=== PATIENT | female | born 1930 | race Caucasian/White ===

== ENCOUNTER → 2016-07-22 | Outpatient (CLI) | payer OTHER ==
[~2016-07-22] MED LIST: AMLO10CA PO; ASPI-435 PO; CALCTAB5 PO; FRS/40 PO; HYDR-3419 PO; LEVO50TA PO; LORA-741 PO; MAGNTAB4 PO; MECL1TAB42 PO; METO100T14 PO; MULT-845 PO; OXGN; POTA-327 PO; SPIR25TA PO; WARF1TAB PO
[2016-07-22 17:52] LABS: BASO % 0.1 %; BASO ABS # 0.01 K/uL (0-0.2); COMPLETE YES; HEMATOCRIT 39.2 % (37-47); IG% 0.3 %; LYMPH % 21.1 %; MEAN CELL VOLUME 88.7 fL (80-100); MEAN CORPUSCULAR HEMOGLOBIN 32.4 pg (25-34); MEAN CORPUSCULAR HGB CONC 36.5 g/dl (32-36); MEAN PLATELET VOLUME 10.7 fL (7.4-10.4); MONO % 9.2 %; NEUT % 67.3 %; PLATELET COUNT 181 K/uL (130-400); RED BLOOD COUNT 4.42 M/uL (4.2-5.4); WHITE BLOOD COUNT 7.59 K/uL (4.8-10.8)
[2016-07-22 18:01] LABS: INR 3.1 (0.9-1.1); PROTHROMBIN TIME (PATIENT) 34.2 SECONDS (9.0-12.0)
[2016-07-22 19:49] LABS: ALT/SGPT 37 U/L (12-78); BLOOD UREA NITROGEN 10 mg/dl (7-18); BUN/CREATININE RATIO 14.1 (10-20); CALCIUM 9.5 mg/dl (8.5-10.1); CARBON DIOXIDE 29 mmol/L (21-32); CHLORIDE 89 mmol/L (98-107); CREATININE 0.73 mg/dl (0.60-1.20); GLUCOSE 111 mg/dl (70-99); POTASSIUM 3.6 mmol/L (3.5-5.1); SODIUM 127 mmol/L (136-145)
[2016-07-22 19:51] LABS: ALB/GLOB RATIO 0.8 (0.9-2); ALKALINE PHOSPHATASE 127 U/L (45-117); AST/SGOT 39 U/L (15-37)
== END | disposition home or self-care (01) ==
LOC: C.LABSPEC 12:43
PROVIDERS: ATTEND Internal Medicine
DX: I48.91 Unspecified atrial fibrillation (principal); K52.9 Noninfective gastroenteritis and colitis, unspecified

== ENCOUNTER → 2016-08-05 | Outpatient (CLI) | payer OTHER ==
[2016-08-05 18:27] LABS: INR 3.3 (0.9-1.1); PROTHROMBIN TIME (PATIENT) 37.5 SECONDS (9.0-12.0)
== END | disposition home or self-care (01) ==
LOC: C.LABSPEC 15:15
PROVIDERS: ATTEND Internal Medicine
DX: Z51.81 Encounter for therapeutic drug level monitoring (principal); Z79.01 Long term (current) use of anticoagulants; I48.91 Unspecified atrial fibrillation

== ENCOUNTER → 2016-09-03 | Outpatient (CLI) | payer OTHER ==
[2016-09-03 15:44] LABS: INR 1.7 (0.9-1.1); PROTHROMBIN TIME (PATIENT) 18.1 SECONDS (9.0-12.0)
== END | disposition home or self-care (01) ==
LOC: C.LABSPEC 15:17
PROVIDERS: ATTEND Internal Medicine
DX: I48.91 Unspecified atrial fibrillation (principal); Z79.01 Long term (current) use of anticoagulants

== ENCOUNTER → 2016-09-09 | Outpatient (CLI) | payer OTHER ==
--- NOTE | 2016-09-09 13:26 | MAMMOGRAPHY REPORT ---
BILATERAL DIGITAL SCREENING MAMMOGRAM WITH CAD: 09/09/2016 CLINICAL HISTORY: Routine screening. Patient has no complaints. TECHNIQUE: Current study was also evaluated with a Computer Aided Detection (CAD) system. Bilatera l CC and MLO views were obtained. COMPARISON: Comparison is made to exams dated: 07/30/2015 mammogram, 05/30/2014 mammogram, 11/18/2014 mammogram, 06/17/2014 mammogram, 04/19/2013 mammogram, and 03/21/2012 mammogram - [facility]. BREAST COMPOSITION: The tissue of both breasts is heterogeneously dense, which may obscure small ma sses. FINDINGS: No suspicious masses, calcifications, or areas of architectural distortion are noted in e ither breast. There has been no significant interval change compared to prior exams. Scattered bilat eral benign-appearing calcifications are not significantly changed. IMPRESSION: ACR BI-RADS CATEGORY 2: BENIGN There is no mammographic evidence of malignancy. A 1 year screening mammogram is recommended. The p atient will receive written notification of the results. Approximately 10% of breast cancers are not detected with mammography. A negative mammographic repor t should not delay biopsy if a clinically suggestive mass is present. Maritza Tenorio M.D. /:09/09/2016 12:43:51 Segmental Paving Supervisor: Twila HOYOSR M, [facility] letter sent: Normal 1/2 BI-RADS Code: ACR BI-RADS Category 2: Benign
== END | disposition home or self-care (01) ==
LOC: C.MAMM 11:40
PROVIDERS: ATTEND Internal Medicine
DX: Z12.31 Encounter for screening mammogram for malignant neoplasm of breast (principal)

== ENCOUNTER → 2016-09-20 | Outpatient (CLI) | payer OTHER ==
[2016-09-20 16:12] LABS: PROTHROMBIN TIME (PATIENT) 22.3 SECONDS (9.0-12.0)
== END ==
LOC: C.LABSPEC 15:16
PROVIDERS: ATTEND Internal Medicine
DX: I48.91 Unspecified atrial fibrillation (principal); Z79.01 Long term (current) use of anticoagulants

== ENCOUNTER → 2016-10-18 | Outpatient (CLI) | payer OTHER ==
[2016-10-18 15:03] LABS: INR 2.8 (0.9-1.1); PROTHROMBIN TIME (PATIENT) 31.2 SECONDS (9.0-12.0)
== END | disposition home or self-care (01) ==
LOC: C.LABSPEC 14:38
PROVIDERS: ATTEND Internal Medicine
DX: I48.91 Unspecified atrial fibrillation (principal); Z79.01 Long term (current) use of anticoagulants

== ENCOUNTER → 2016-11-02 | Outpatient (CLI) | payer OTHER | END | disposition home or self-care (01) | LOC: C.LABSPEC 13:00 | PROVIDERS: ATTEND Internal Medicine | DX: N39.0 Urinary tract infection, site not specified (principal) ==

== ENCOUNTER → 2016-11-17 | Outpatient (CLI) | payer OTHER ==
[2016-11-17 18:23] LABS: INR 2.9 (0.9-1.1); PROTHROMBIN TIME (PATIENT) 32.9 SECONDS (9.0-12.0)
== END | disposition home or self-care (01) ==
LOC: C.PATHSPEC 17:41 → C.LABSPEC 17:41
PROVIDERS: ATTEND Internal Medicine
DX: I48.91 Unspecified atrial fibrillation (principal); Z79.01 Long term (current) use of anticoagulants

== ENCOUNTER → 2016-12-03 | Outpatient (CLI) | payer OTHER | END | disposition home or self-care (01) | LOC: C.LABSPEC 08:43 | PROVIDERS: ATTEND Internal Medicine | DX: N39.0 Urinary tract infection, site not specified (principal) ==

== ENCOUNTER → 2016-12-20 | Outpatient (CLI) | payer OTHER ==
[2016-12-20 16:20] LABS: BASO % 0.3 %; BASO ABS # 0.02 K/uL (0-0.2); COMPLETE YES; EOS % 3.8 %; HEMATOCRIT 36.6 % (37-47); IG% 0.2 %; LYMPH % 26.4 %; LYMPH ABS # 1.59 K/uL (1.2-3.4); MEAN CORPUSCULAR HEMOGLOBIN 31.6 pg (25-34); MEAN CORPUSCULAR HGB CONC 34.7 g/dl (32-36); MEAN PLATELET VOLUME 10.5 fL (7.4-10.4); MONO % 12.8 %; NEUT % 56.5 %; PLATELET COUNT 141 K/uL (130-400); RED BLOOD COUNT 4.02 M/uL (4.2-5.4); WHITE BLOOD COUNT 6.02 K/uL (4.8-10.8)
[2016-12-20 16:28] LABS: BLOOD UREA NITROGEN 14 mg/dl (7-18); BUN/CREATININE RATIO 20.5 (10-20); CALCIUM 8.8 mg/dl (8.5-10.1); CARBON DIOXIDE 30 mmol/L (21-32); CHLORIDE 92 mmol/L (98-107); CREATININE 0.68 mg/dl (0.60-1.20); GLUCOSE 80 mg/dl (70-99); POTASSIUM 4.1 mmol/L (3.5-5.1); SODIUM 130 mmol/L (136-145)
[2016-12-20 16:39] LABS: ALB/GLOB RATIO 0.9 (0.9-2); ALKALINE PHOSPHATASE 105 U/L (45-117); ALT/SGPT 32 U/L (12-78); AST/SGOT 36 U/L (15-37)
[2016-12-20 16:41] LABS: PROTHROMBIN TIME (PATIENT) 68.4 SECONDS (9.0-12.0)
[2016-12-20 16:43] LABS: INR 5.9 (0.9-1.1)
== END | disposition home or self-care (01) ==
LOC: C.LABSPEC 15:33
PROVIDERS: ATTEND Internal Medicine
DX: Z79.01 Long term (current) use of anticoagulants (principal); I48.91 Unspecified atrial fibrillation; Z95.2 Presence of prosthetic heart valve; I25.10 Atherosclerotic heart disease of native coronary artery without angina pectoris; I10 Essential (primary) hypertension; E03.9 Hypothyroidism, unspecified

== ENCOUNTER → 2017-01-04 | Outpatient (CLI) | payer OTHER ==
[2017-01-04 16:25] LABS: INR 2.7 (0.9-1.1)
== END | disposition home or self-care (01) ==
LOC: C.LABSPEC 15:11
PROVIDERS: ATTEND Internal Medicine
DX: I48.91 Unspecified atrial fibrillation (principal); Z79.01 Long term (current) use of anticoagulants

== ENCOUNTER → 2017-02-07 | Outpatient (CLI) | payer OTHER ==
[2017-02-07 15:40] LABS: INR 1.9 (0.9-1.1); PROTHROMBIN TIME (PATIENT) 20.4 SECONDS (9.0-12.0)
== END | disposition home or self-care (01) ==
LOC: C.LABSPEC 15:01
PROVIDERS: ATTEND Internal Medicine
DX: Z51.81 Encounter for therapeutic drug level monitoring (principal); Z79.01 Long term (current) use of anticoagulants; I48.91 Unspecified atrial fibrillation

== ENCOUNTER → 2017-02-28 | Outpatient (CLI) | payer OTHER ==
[2017-02-28 18:22] LABS: URINE APPEARANCE CLEAR (CLEAR); URINE BILIRUBIN NEG (NEG); URINE COLOR YELLOW; URINE NITRITE NEG (NEG); URINE PH 8.5 (4.5-7.5); UROBILINOGEN NEG (NEG)
[2017-02-28 18:26] LABS: MANUAL MICROSCOPIC REQUIRED? NO; REVIEW REQ? NO
== END | disposition home or self-care (01) ==
LOC: C.LABSPEC 17:30
PROVIDERS: ATTEND Internal Medicine
DX: R35.0 Frequency of micturition (principal)

== ENCOUNTER → 2017-03-10 | Outpatient (CLI) | payer OTHER ==
[2017-03-10 15:27] LABS: INR 1.9 (0.9-1.1)
== END | disposition home or self-care (01) ==
LOC: C.LABSPEC 14:33
PROVIDERS: ATTEND Internal Medicine
DX: I48.91 Unspecified atrial fibrillation (principal); Z79.01 Long term (current) use of anticoagulants

== ENCOUNTER → 2017-03-23 | Outpatient (CLI) | payer OTHER | END | disposition home or self-care (01) | LOC: C.LABSPEC 17:28 | PROVIDERS: ATTEND Urology | DX: N39.0 Urinary tract infection, site not specified (principal); R30.0 Dysuria; R31.0 Gross hematuria ==

== ENCOUNTER → 2017-03-31 | Outpatient (CLI) | payer OTHER ==
[2017-03-31 15:58] LABS: INR 1.5 (0.9-1.1); PROTHROMBIN TIME (PATIENT) 16.2 SECONDS (9.0-12.0)
[2017-03-31 16:05] LABS: ALT/SGPT 32 U/L (12-78); BLOOD UREA NITROGEN 13 mg/dl (7-18); BUN/CREATININE RATIO 19.5 (10-20); CALCIUM 9.3 mg/dl (8.5-10.1); CARBON DIOXIDE 31 mmol/L (21-32); CHLORIDE 91 mmol/L (98-107); CREATININE 0.65 mg/dl (0.60-1.20); GLUCOSE 91 mg/dl (70-99); POTASSIUM 3.9 mmol/L (3.5-5.1); SODIUM 128 mmol/L (136-145)
[2017-03-31 16:06] LABS: ALB/GLOB RATIO 0.9 (0.9-2); ALKALINE PHOSPHATASE 109 U/L (45-117); AST/SGOT 34 U/L (15-37)
== END | disposition home or self-care (01) ==
LOC: C.LABSPEC 14:49
PROVIDERS: ATTEND Internal Medicine
DX: Z79.01 Long term (current) use of anticoagulants (principal); I48.91 Unspecified atrial fibrillation; N39.0 Urinary tract infection, site not specified; R31.0 Gross hematuria; R30.0 Dysuria

== ENCOUNTER → 2017-04-08 | Outpatient (CLI) | payer OTHER ==
[~2017-04-08] MED LIST changes: +OPTIRAY 320 IV PRN
--- NOTE | 2017-04-08 12:57 | DIAGNOSTIC IMAGING REPORT ---
ABD/PELVIS COMBO CLINICAL HISTORY: 86 years-old Female presenting with N39.0 UTI (urinary tract infection)R30.0 [id number] Gross norma. TECHNIQUE: Multidetector CT of the abdomen and pelvis was performed before and after the administration of intravenous contrast. IV contrast: 120 mils of Optiray 320. A dose lowering technique was used consistent with the principles of ALARA (as low as reasonably achievable). COMPARISON: None. CT DOSE (mGy.cm): The estimated cumulative dose is 1454.12 mGycm. FINDINGS: Doctor Of Podiatric Medicine topogram: Median sternotomy wires with tricuspid and aortic prosthetic valves. Lung bases: Dependent reticulation and bandlike opacities, new since 2012, possibly atelectasis or scarring. Solid 8 mm pulmonary nodule at the paramediastinal left lower lobe (series 3 image 12). Interlobular septal thickening. Multichamber enlargement of the heart. Prosthetic tricuspid and aortic valves. Partially visualized lead to the right ventricle. Mitral annular calcification. No pericardial or pleural effusion. Liver: Mildly nodular contour of the liver. No focal suspicious lesion allowing for the single phase of contrast. Patent portal veins. Hepatic veins not yet opacified. Biliary: Mild diffuse intrahepatic biliary ductal dilatation. Mild prominence of the extrahepatic bile duct. Gallbladder contains gallstones. Mild pericholecystic fat infiltration. No gallbladder distention. Pancreas: Mild parenchymal atrophy. Spleen: Normal. Adrenal glands: Normal. Kidneys and ureters: Small hypodensity in the right kidney too small to characterize but likely cyst. No hydronephrosis. Normal excretion bilaterally. Ureters normal. Bladder: Normal. No gross evidence of a urethral diverticulum Pelvic organs: Uterus and ovaries normal. Bowel: Diverticulosis of the sigmoid colon. Few scattered colonic diverticula noted elsewhere. Normal appendix. No bowel obstruction. Small hiatal hernia. Radiodensity in the gastric lumen likely medication. Peritoneal cavity: No free fluid or intraperitoneal gas. Vasculature: Atherosclerosis of the normal caliber abdominal aorta. IVC patent. Lymph nodes: No enlarged lymph nodes in the abdomen or pelvis. Abdominal wall: Diastasis of the rectus abdominis. Musculoskeletal: Degenerative changes of the spine. Endplate depression deformities at multiple levels, most severe at L3 and L4. Benign meningioma suspected at L1. Severe osteopenia. Degenerative changes of the pubic symphysis. IMPRESSION: 1. No nephrolithiasis. No hydronephrosis. Normal urinary collecting system. 2. Severe osteopenia with endplate depression deformities at multiple levels. 3. Solid 8 mm pulmonary nodule at the left lower lobe. Follow-up per [employer] Society 2017 recommendations below. 4. Mild pericholecystic fat infiltration with cholelithiasis. The absence of gallbladder distention suggests against the diagnosis of cholecystitis. This is somewhat equivocal. If there is clinical concern, nuclear medicine hepatobiliary scan could be obtained. Electronically signed by: Vikash Moreno M.D. 04/08/2017 12:55 PM Dictated Date/Time: 04/08/2017 12:45 PM
== END | disposition home or self-care (01) ==
LOC: C.CTS 11:59
PROVIDERS: ATTEND Urology
DX: N39.0 Urinary tract infection, site not specified (principal); R31.0 Gross hematuria; R30.0 Dysuria; M85.89 Other specified disorders of bone density and structure, multiple sites; R91.1 Solitary pulmonary nodule; K80.20 Calculus of gallbladder without cholecystitis without obstruction

== ENCOUNTER → 2017-04-12 | Outpatient (CLI) | payer OTHER ==
[~2017-04-12] MED LIST changes: -OPTIRAY 320 IV PRN
[2017-04-12 15:36] LABS: INR 2.5 (0.9-1.1); PROTHROMBIN TIME (PATIENT) 27.5 SECONDS (9.0-12.0)
== END | disposition home or self-care (01) ==
LOC: C.LABSPEC 14:43
PROVIDERS: ATTEND Internal Medicine
DX: I48.91 Unspecified atrial fibrillation (principal); Z79.01 Long term (current) use of anticoagulants

== ENCOUNTER → 2017-06-15 | Outpatient (CLI) | payer OTHER | END | disposition home or self-care (01) | LOC: C.LABSPEC 17:02 | PROVIDERS: ATTEND Urology | DX: R31.0 Gross hematuria (principal) ==

== ENCOUNTER → 2017-06-28 | Outpatient (CLI) | payer OTHER | END | disposition home or self-care (01) | LOC: C.PATHSPEC 16:53 | PROVIDERS: ATTEND Urology | DX: R31.0 Gross hematuria (principal) ==

== ENCOUNTER → 2017-07-08 | Outpatient (CLI) | payer OTHER ==
[~2017-07-08] MED LIST changes: +AMLO5TAB3 PO; +CALC600T9 PO; +CIPR-255 PO; +CYCL0.052 OP; +CZR50 PO; +DORZ1SOL6 OP; +MCRK/10 PO; +OXYC7.5T65 PO; +PHEN-775 PO; +SLWMEC PO; +WARF-283 PO
[2017-07-08 15:00] LABS: INR 2.7 (0.9-1.1)
== END | disposition home or self-care (01) ==
LOC: C.LABSPEC 14:41
PROVIDERS: ATTEND Internal Medicine
DX: I48.91 Unspecified atrial fibrillation (principal); Z79.01 Long term (current) use of anticoagulants; Z51.81 Encounter for therapeutic drug level monitoring

== ENCOUNTER → 2017-08-10 | Outpatient (CLI) | payer OTHER ==
[~2017-08-10] MED LIST changes: -AMLO5TAB3 PO; -CALC600T9 PO; -CIPR-255 PO; -CYCL0.052 OP; -CZR50 PO; -DORZ1SOL6 OP; -MCRK/10 PO; -OXYC7.5T65 PO; -PHEN-775 PO; -SLWMEC PO; -WARF-283 PO
[2017-08-10 15:13] LABS: INR 2.4 (0.9-1.1)
== END | disposition home or self-care (01) ==
LOC: C.LABSPEC 14:57
PROVIDERS: ATTEND Internal Medicine
DX: I48.91 Unspecified atrial fibrillation (principal); Z79.01 Long term (current) use of anticoagulants

== ENCOUNTER → 2017-09-12 | Outpatient (CLI) | payer OTHER ==
[2017-09-12 15:28] LABS: INR 2.4 (0.9-1.1)
== END | disposition home or self-care (01) ==
LOC: C.LABSPEC 14:53
PROVIDERS: ATTEND Internal Medicine
DX: I48.91 Unspecified atrial fibrillation (principal); Z79.01 Long term (current) use of anticoagulants

== ENCOUNTER → 2017-09-23 | Outpatient (CLI) | payer OTHER ==
--- NOTE | 2017-09-23 13:54 | MAMMOGRAPHY REPORT ---
BILATERAL DIGITAL SCREENING MAMMOGRAM TOMOSYNTHESIS WITH CAD: 09/23/2017 CLINICAL HISTORY: Routine screening. Patient has no complaints. TECHNIQUE: Breast tomosynthesis in addition to standard 2D mammography was performed. Current study was also evaluated with a Computer Aided Detection (CAD) system. COMPARISON: Comparison is made to exams dated: 09/09/2016 mammogram, 07/30/2015 mammogram, 11/18/2014 ul trasound, 11/18/2014 mammogram, 05/30/2014 mammogram, and 04/19/2013 mammogram - [facility]. BREAST COMPOSITION: The tissue of both breasts is heterogeneously dense, which may obscure small mas ses. FINDINGS: No suspicious masses, calcifications, or areas of architectural distortion are noted in ei ther breast. There has been no significant interval change compared to prior exams. Scattered bilater al benign-appearing calcifications are not significantly changed. IMPRESSION: ACR BI-RADS CATEGORY 2: BENIGN There is no mammographic evidence of malignancy. A 1 year screening mammogram is recommended. The pa tient will receive written notification of the results. Approximately 10% of breast cancers are not detected with mammography. A negative mammographic report should not delay biopsy if a clinically suggestive mass is present. Maritza Tenorio M.D. /:09/23/2017 12:16:40 Vp Genetic: Sunita MCALLISTER)(M), [facility] letter sent: Normal 1/2 BI-RADS Code: ACR BI-RADS Category 2: Benign
== END | disposition home or self-care (01) ==
LOC: C.MAMM 11:10
PROVIDERS: ATTEND Internal Medicine
DX: Z12.31 Encounter for screening mammogram for malignant neoplasm of breast (principal)

== ENCOUNTER → 2017-10-17 | Outpatient (CLI) | payer OTHER ==
[2017-10-17 17:19] LABS: INR 4.5 (0.9-1.1)
== END | disposition home or self-care (01) ==
LOC: C.LABSPEC 16:40
PROVIDERS: ATTEND Internal Medicine
DX: I48.91 Unspecified atrial fibrillation (principal); Z79.01 Long term (current) use of anticoagulants

== ENCOUNTER → 2017-11-28 | Outpatient (CLI) | payer OTHER | END | disposition home or self-care (01) | LOC: C.LABSPEC 17:12 | PROVIDERS: ATTEND Internal Medicine | DX: I48.91 Unspecified atrial fibrillation (principal); Z79.01 Long term (current) use of anticoagulants ==

== ENCOUNTER → 2017-11-30 | Outpatient (CLI) | payer OTHER | END | disposition home or self-care (01) | LOC: C.PATHSPEC 16:56 | PROVIDERS: ATTEND Urology | DX: N32.9 Bladder disorder, unspecified (principal) ==

== ENCOUNTER 2019-08-12 20:09 | Inpatient (IN) ==
[2019-08-12] MEDS ORDERED: SODIUM CHLORIDE 0.9% 1000ML 250 ML IV ONE (21:02)
[2019-08-12 21:38] LABS: Basophils # (auto) 0.01 K/uL (0-0.2); Basophils % (auto) 0.1 %; Eosinophils # (auto) 0.03 K/uL (0-0.5); Eosinophils % (auto) 0.3 %; Hematocrit (blood only) 38.2 % (37-47); Hemoglobin 13.7 g/dL (12.0-16.0); Immature Granulocytes # (auto) 0.02 K/uL (0.00-0.02); Immature Granulocytes % (auto) 0.2 %; Lymphocytes % (auto) 7.5 %; Mean Corpuscular Hemoglobin 32.5 pg (25-34); Mean Corpuscular Hgb Conc 35.9 g/dL (32-36); Mean Corpuscular Volume 90.5 fL (80-100); Mean Platelet Volume 10.2 fL (7.4-10.4); Monocytes % (auto) 5.4 %; Neutrophils # (auto) 8.05 K/uL (1.4-6.5); Neutrophils % (auto) 86.5 %; Platelet Count 132 K/uL (130-400); RDW Coefficient of Variation 13.6 % (11.5-14.5); RDW Standard Deviation 45.2 fL (36.4-46.3); Red Blood Count 4.22 M/uL (4.2-5.4); White Blood Count 9.31 K/uL (4.8-10.8)
--- NOTE | 2019-08-12 21:45 | XRay Report ---
XR chest 1V portable HISTORY: Shortness of breath. COMPARISON: Chest 09/11/2013. FINDINGS: The heart is enlarged. Poststernotomy changes. Cardiac valve prostheses are again noted. Bi basilar linear densities favor subsegmental atelectasis. Trace right pleural effusion. Progressive in terstitial vascular thickening consistent with mild pulmonary edema. IMPRESSION: Cardiomegaly, mild interstitial pulmonary edema, and a trace right pleural effusion. ACT 112: Negative or not required by law. Electronically signed by: Ilya Russ M.D. 08/12/2019 9:44 PM
[2019-08-12 22:07] LABS: Alanine Aminotransferase 28 U/L (12-78); Albumin Globulin Ratio 0.8 (0.9-2); Albumin Level 3.6 gm/dl (3.4-5.0); Alkaline Phosphatase 155 U/L (45-117); Aspartate Aminotransferase 34 U/L (15-37); BUN Creatinine Ratio 16.9 (10-20); Bilirubin,Total 1.6 mg/dl (0.2-1); Blood Urea Nitrogen 10 mg/dl (7-18); Calcium 8.9 mg/dl (8.5-10.1); Carbon Dioxide 26 mmol/L (21-32); Chloride 81 mmol/L (98-107); Est GFR (African American) 96.6; Est GFR (Non-African American) 83.4; Globulin 4.7 gm/dl (2.5-4.0); Glucose 148 mg/dl (70-99); INR 3.5 (0.9-1.1); Lipase 112 U/L (73-393); Partial Thromboplastin Ratio 1.5; Potassium 3.3 mmol/L (3.5-5.1); Prothrombin Time 33.1 Seconds (9.0-12.0); Sodium 116 mmol/L (136-145); Total Protein 8.3 gm/dl (6.4-8.2)
[2019-08-12 22:09] LABS: Influenza A virus by PCR Neg for Influ A (Neg); Influenza B virus by PCR Neg for Influ B (Neg)
--- NOTE | 2019-08-12 22:09 | Emergency Department Note ---
Entered by Araseli Quezada acting as a scribe for Donnie Galindo MD History of Present Illness General Chief complaint: Unable to Void Stated complaint: DIZZY, UNABLE TO VOID Time Seen by Provider: 08/12/19 20:50 Source: patient History of Present Illness Provider complaint: Weakness Onset (ago): day(s) 6 Location: abdomen Maximum Pain Intensity: 0 Relieved By: + none Exacerbated By: + none Associated symptoms: + nausea/vomiting (Positive nausea. Negative vomiting.) and + other (Diarrhea, bloated, abdominal pain, dizziness); no chest pain, no cough and no shortness of breath The patient is a 88 year old female who presents to the Emergency Room with complaints of weakness that began 6 days ago. The patient states that her symptoms are not relieved nor exacerbated by anything specific. The patient reports experiencing diarrhea and abdominal pain. The patient also reports experiencing bloating, dizziness, and nausea but denies any vomiting. The patient denies experiencing any chest pain, cough, or shortness of breath. Home Medications Home Medications Medication Instructions Recorded Confirmed Type furosemide [Lasix] 40 mg PO BID #0 tab 01/17/12 08/12/19 History Centrum Silver Women 1 tab PO DAILY #0 07/31/13 08/12/19 History aspirin [Aspirin Low Dose] 81 mg PO QAM #0 07/31/13 08/12/19 History levothyroxine 75 mcg PO QAM #0 tab 07/31/13 08/12/19 History warfarin 3 mg PO 3XWK #0 tab 07/31/13 08/12/19 History Oxygen Home #0 09/10/13 02/13/19 History lorazepam [Ativan] 0.5 mg PO BID PRN #0 tab 09/10/13 08/12/19 History metoprolol tartrate 100 mg PO BID #0 tab 09/10/13 08/12/19 History spironolactone [Aldactone] 12.5 mg PO QAM #0 tab 09/10/13 08/12/19 History amlodipine [Norvasc] 5 mg PO QAM #0 tab 01/16/18 08/12/19 History warfarin 4 mg PO 4XWK 11/29/18 08/12/19 History calcium phosphate-vitamin D3 1 tab PO DAILY 08/12/19 08/12/19 History [Caltrate Gummy Bites] dorzolamide-timolol 1 drp OPHTHALMIC (EYE) DAILY 08/12/19 08/12/19 History losartan 50 mg PO BID 08/12/19 08/12/19 History Allergies Allergy/AdvReac Type Severity Reaction Status Date / Time Sulfa (Sulfonamide Allergy Intermediate HIVES Verified 08/12/19 21:07 Antibiotics) Past Med/Surg History Medical History Atrial fibrillation (Acute) CHF (congestive heart failure) (Acute) HTN (hypertension) (Acute) Pacemaker Thyroid disease (Acute) Surgical History Aortic valve replaced (Acute) History of colonoscopy Hx of tricuspid valve repair (Acute) Status post bilateral knee replacements (Acute) Status post Mohs surgery Family History Brother Cancer Sister Cancer Social History Preferred Language: Latvian Communication Ability: Effective Marketing Technology Coordinator Required: No Beliefs That Will Affect Care: None Current Living Situation: Alone Feels Safe at Home: Yes Smoking Status: Never smoker Second Hand Exposure: No ; Hx Alcohol Use: No Hx Substance Use: No Review of Systems See HPI for pertinent positives & negatives. and A total of 10 systems reviewed and were otherwise negative Physical Exam Vital Signs Vital Signs - 24 hr 08/12/19 20:13 08/12/19 21:15 08/12/19 21:30 Temperature 36.4 C L Temperature Source Oral Pulse Rate 64 60 Pulse Rate from SpO2 Sensor 60 Respiratory Rate 20 23 Respiratory Effort / Characteristics Non-Labored Spontaneous Respiratory Depth Normal Blood Pressure 156/79 H 167/83 H Blood Pressure Mean 104 127 Pulse Oximetry 91 89 L Oxygen Delivery Method Room Air Room Air Oxygen Flow Rate Sepsis Recent Fever Within 48 Hours No Sepsis Action Taken by Nursing No Action Required Oxygen Flow Rate - Titration Pulse Oximetry Post Tiitration 08/12/19 21:41 08/12/19 22:00 08/12/19 22:01 Temperature Temperature Source Pulse Rate 60 59 L 60 Pulse Rate from SpO2 Sensor 60 60 60 Respiratory Rate 25 H 21 19 Respiratory Effort / Characteristics Respiratory Depth Blood Pressure 183/76 H Blood Pressure Mean 113 Pulse Oximetry 89 L 94 94 Oxygen Delivery Method Room Air Nasal Cannula Oxygen Flow Rate 0 Sepsis Recent Fever Within 48 Hours Sepsis Action Taken by Nursing Oxygen Flow Rate - Titration 2 Pulse Oximetry Post Tiitration 95 08/12/19 22:37 08/12/19 22:38 08/12/19 23:00 Temperature Temperature Source Pulse Rate 60 60 Pulse Rate from SpO2 Sensor 60 60 61 Respiratory Rate 14 16 Respiratory Effort / Characteristics Respiratory Depth Blood Pressure 163/72 H 183/80 H Blood Pressure Mean 95 117 Pulse Oximetry 94 95 95 Oxygen Delivery Method Nasal Cannula Oxygen Flow Rate 2 Sepsis Recent Fever Within 48 Hours Sepsis Action Taken by Nursing Oxygen Flow Rate - Titration Pulse Oximetry Post Tiitration General: Non-ill appearing older female in no acute distress. HEENT: Normal cephalic atraumatic. Pupils are equal round and reactive to light. Extraocular movements are intact. Oropharynx is pink with moist mucous membranes. No swelling of the mouth lips or tongue. Neck: Supple with a midline trachea. No meningeal signs or stiffness, no JVD or bruits. No Stridor. Chest: Clear to auscultation bilaterally. No wheezes or rhonchi. No increased work of breathing. Heart: regular rate and rhythm with mechanical heart valve. Abdomen: Soft and mildly tender, distended without rebound guarding or rigidity. Extremities: No cyanosis clubbing. Baseline 1+ LE edema. No calf tenderness or asymmetry Spine/Back. Non tender to palpation. No CVA tenderness Skin: Good turgor without rashes. Neurologic exam: Cranial nerves two through 12 are intact. Motor and sensation are intact and symmetrical throughout. Course Course 2050: Past medical records reviewed. The patient was evaluated in room C05. A complete history and physical exam was performed. 2228: I spoke with Dr. Banda- Hospitalist about the patient's case and he will accept the patient for further evaluation. Administered Medications Sodium Chloride (Nss) 500 mls @ 125 mls/hr IV .Q4H STA Stop: 08/13/19 02:20 Last Admin: 08/12/19 23:02 Dose: 125 mls/hr Documented by: [id number] Discontinued Medications Furosemide (Lasix) 40 mg IV NOW STA Stop: 08/12/19 23:02 Last Admin: 08/12/19 23:31 Dose: 40 mg Documented by: [id number] Sodium Chloride (Nss 1000ml) 250 mls @ 999 mls/hr IV .Q16M ONE Stop: 08/12/19 21:17 Last Infusion: 08/12/19 21:34 Dose: 0 mls/hr Documented by: [id number] Admin: 08/12/19 21:15 Dose: 999 mls/hr Documented by: [id number] Lorazepam (Ativan) 0.5 mg in 1 mls @ 1 mls/min IV NOW STA Stop: 08/12/19 23:24 Last Admin: 08/12/19 23:31 Dose: 1 mls/min Documented by: [id number] Medical Decision Making Differential Diagnosis Differential diagnosis includes: Dehydration, Infection, Cardiac disease, CHF, Electrolyte or Metabolic abnormality, as well as others were entertained. Medical Records Attestation: I reviewed the patient's medical records. Home Medications Current Medication List: was personally reviewed by me Laboratory Data Attestation: I reviewed the patient's lab results. Result diagrams: 08/12/19 21:15 08/12/19 21:15 Lab Results 08/12/19 08/12/19 08/12/19 Range/Units 21:10 21:15 21:15 WBC 9.31 (4.8-10.8) K/uL RBC 4.22 (4.2-5.4) M/uL Hgb 13.7 (12.0-16.0) g/dL Hct 38.2 (37-47) % MCV 90.5 (80-100) fL MCH 32.5 (25-34) pg MCHC 35.9 (32-36) g/dL RDW Std Deviation 45.2 (36.4-46.3) fL RDW Coeff of Sia 13.6 (11.5-14.5) % Plt Count 132 (130-400) K/uL MPV 10.2 (7.4-10.4) fL Immature Gran % (Auto) 0.2 % Neut % (Auto) 86.5 % Lymph % (Auto) 7.5 % [place] % (Auto) 5.4 % Eos % (Auto) 0.3 % Baso % (Auto) 0.1 % Immature Gran # (Auto) 0.02 (0.00-0.02) K/uL Neut # (Auto) 8.05 H (1.4-6.5) K/uL Lymph # (Auto) 0.70 L (1.2-3.4) K/uL [place] # (Auto) 0.50 (0.11-0.59) K/uL Eos # (Auto) 0.03 (0-0.5) K/uL Baso # (Auto) 0.01 (0-0.2) K/uL PT 33.1 H (9.0-12.0) Seconds INR 3.5 H (0.9-1.1) APTT 41.0 H (21.0-31.0) Seconds PTT Ratio 1.5 Sodium (136-145) mmol/L Potassium (3.5-5.1) mmol/L Chloride (98-107) mmol/L Carbon Dioxide (21-32) mmol/L Anion Gap (3-11) BUN (7-18) mg/dl Creatinine (0.6-1.2) mg/dl Est Cr Clr Drug Dosing Est GFR ( Amer) Est GFR (Non-Af Amer) BUN/Creatinine Ratio (10-20) Glucose (70-99) mg/dl Calcium (8.5-10.1) mg/dl Magnesium (1.8-2.4) mg/dl Total Bilirubin (0.2-1) mg/dl AST (15-37) U/L ALT (12-78) U/L Alkaline Phosphatase (45-117) U/L Troponin I (0-0.045) ng/ml Total Protein (6.4-8.2) gm/dl Albumin (3.4-5.0) gm/dl Globulin (2.5-4.0) gm/dl Albumin/Globulin Ratio (0.9-2) Lipase (73-393) U/L Urine Color Urine Appearance (Clear) Urine pH (4.5-7.5) Ur Specific [place] (1.000-1.030) Urine Protein (Negative) Urine Glucose (UA) (Negative) Urine Ketones (Negative) Urine Blood (Negative) Urine Nitrite (Negative) Urine Bilirubin (Negative) Urine Urobilinogen (Negative) Ur Leukocyte Esterase (Negative) Influenza Type A (PCR) Neg for Influ A (Neg) Influenza Type B (PCR) Neg for Influ B (Neg) 08/12/19 08/12/19 Range/Units 21:15 22:33 WBC (4.8-10.8) K/uL RBC (4.2-5.4) M/uL Hgb (12.0-16.0) g/dL Hct (37-47) % MCV (80-100) fL MCH (25-34) pg MCHC (32-36) g/dL RDW Std Deviation (36.4-46.3) fL RDW Coeff of Sia (11.5-14.5) % Plt Count (130-400) K/uL MPV (7.4-10.4) fL Immature Gran % (Auto) % Neut % (Auto) % Lymph % (Auto) % [place] % (Auto) % Eos % (Auto) % Baso % (Auto) % Immature Gran # (Auto) (0.00-0.02) K/uL Neut # (Auto) (1.4-6.5) K/uL Lymph # (Auto) (1.2-3.4) K/uL [place] # (Auto) (0.11-0.59) K/uL Eos # (Auto) (0-0.5) K/uL Baso # (Auto) (0-0.2) K/uL PT (9.0-12.0) Seconds INR (0.9-1.1) APTT (21.0-31.0) Seconds PTT Ratio Sodium 116 L* (136-145) mmol/L Potassium 3.3 L (3.5-5.1) mmol/L Chloride 81 L (98-107) mmol/L Carbon Dioxide 26 (21-32) mmol/L Anion Gap 9.0 (3-11) BUN 10 (7-18) mg/dl Creatinine 0.57 L (0.6-1.2) mg/dl Est Cr Clr Drug Dosing Not Reportable Est GFR ( Amer) 96.6 Est GFR (Non-Af Amer) 83.4 BUN/Creatinine Ratio 16.9 (10-20) Glucose 148 H (70-99) mg/dl Calcium 8.9 (8.5-10.1) mg/dl Magnesium 1.5 L (1.8-2.4) mg/dl Total Bilirubin 1.6 H (0.2-1) mg/dl AST 34 (15-37) U/L ALT 28 (12-78) U/L Alkaline Phosphatase 155 H (45-117) U/L Troponin I 0.072 H* (0-0.045) ng/ml Total Protein 8.3 H (6.4-8.2) gm/dl Albumin 3.6 (3.4-5.0) gm/dl Globulin 4.7 H (2.5-4.0) gm/dl Albumin/Globulin Ratio 0.8 L (0.9-2) Lipase 112 (73-393) U/L Urine Color Yellow Urine Appearance Clear (Clear) Urine pH 8.0 H (4.5-7.5) Ur Specific [place] 1.009 (1.000-1.030) Urine Protein Negative (Negative) Urine Glucose (UA) Negative (Negative) Urine Ketones Negative (Negative) Urine Blood Negative (Negative) Urine Nitrite Negative (Negative) Urine Bilirubin Negative (Negative) Urine Urobilinogen Negative (Negative) Ur Leukocyte Esterase Negative (Negative) Influenza Type A (PCR) (Neg) Influenza Type B (PCR) (Neg) Imaging Data Radiologist's Impression: Radiology results as stated below per my review and the radiologist's interpretation: XR chest 1V portable HISTORY: Shortness of breath. COMPARISON: Chest 09/11/2013. FINDINGS: The heart is enlarged. Poststernotomy changes. Cardiac valve prostheses are again noted. Bibasilar linear densities favor subsegmental atelectasis. Trace right pleural effusion. Progressive interstitial vascular thickening consistent with mild pulmonary edema. IMPRESSION: Cardiomegaly, mild interstitial pulmonary edema, and a trace right pleural e ffusion. ACT 112: Negative or not required by law. Electronically signed by: Ilya Russ M.D. 08/12/2019 9:44 PM A[address]OMEN AND PELVIS CT WITHOUT CONTRAST CT DOSE: 624.74 mGy.cm HISTORY: Abdominal distention. TECHNIQUE: Multiaxial CT images of the abdomen and pelvis were performed without contrast. A dose lowering technique was utilized adhering to the principles of ALARA. COMPARISON STUDY: Abdomen and pelvis CT 04/08/2017. FINDINGS: Interstitial thickening at the lung bases and a trace right pleural effusion consistent with pulmonary edema. The heart is enlarged. Pacemaker wires are noted. No pneumoperitoneum. No pneumatosis. No suspicious lytic or blastic osseous lesions. Old compression deformities at T12, L3, and L4. Subtle nodular contour to the liver consistent with cirrhosis. Cholelithiasis. The unenhanced spleen and pancreas are unremarkable. Mild adrenal gland thickening is likely age-related. There are few punctate left renal calculi. No ureteral stones or hydronephrosis. The bladder is moderately distended. The uterus and bilateral ovaries are unremarkable. No retroperitoneal lymphadenopathy. A few borderline dilated gas-filled loops of small bowel seen within the abdomen. This favors an ileus. There is no transition point identified on this noncontrast study to suggest an obstruction. Normal appendix. Multiple colonic diverticula. Focal thickening and pericolonic fat stranding at the mid sigmoid colon. This is co nsistent with acute diverticulitis. There is an inflamed diverticulum best seen on image 220. No perforation or abscess identified at this time. IMPRESSION: 1. Acute sigmoid diverticulitis. No perforation or abscess at this time. 2. Pulmonary edema and a trace right pleural effusion. 3. Cholelithiasis. 4. Cirrhotic liver. 5. Left-sided nephrolithiasis. No hydronephrosis. ACT 112: Negative or not required by law. Electronically signed by: Ilya Russ M.D. 08/12/2019 10:26 PM ECG Data Attestation: I personally reviewed and interpreted this ECG as follows: Indication: + toxicologic Rate (beats per minute): 60 Rhythm: + other (Ventricular paced rhythm) ECG Intervals/blocks: + IVCD Comparison ECG Date: from (07/31/13) Change: no significant change Blood Pressure Blood Pressure Findings: Elevated blood pressure Blood Pressure Disposition: further management by hospitalist [facility] Narrative This patient comes in as described above. She was placed in room C5. She has multiple complaints. She has been complaining of diarrhea followed by decreased urination abdominal bloating and generalized weakness. She has a history of cardiac disease and has baseline edema on her legs she denies any acute s hortness of breath or chest pain. She is felt dizzy at times. She may have a low-grade fever the other day but none since. IV access was established and blood work was obtained she was given a small fluid bolus of 250 cc. Her chest x-ray does show mild congestive heart failure changes and she does have some mild hypoxemia although she wears oxygen at night she was placed on home oxygen she has no shortness of breath or chest pain. She was noted to have about 750 cc on bladder scan in her bladder. I ordered a White catheter. The CAT scan shows what appears to be diverticulitis. Her troponin is mildly elevated. Her sodium is significant low at 116. Given the concern for ongoing CHF. she was given additional fluids but very slowly and an hourly rate of normal saline of 150 cc IV. Despite her low sodium she has normal mental status. I do think she needs to be admitted given her low sodium and other findings and I have consult Dr. Banda to see her for these measures. Her CAT scan did come back with findings consistent with diverticulitis she was given IV Zosyn. Her EKG does not show any acute ischemic changes and has a paced rhythm. She has been reassessed and is remained hemodynamically stable. Impression & Plan Acute hyponatremia, Dizziness, Acute urinary retention, CHF (congestive heart failure), Acute diverticulitis, Elevated troponin Discharge Plan Visit Data Chief Complaint: Unable to Void Stated Complaint: DIZZY, UNABLE TO VOID ED Provider: Donnie Galindo Discharge Problem: Acute hyponatremia, Dizziness, Acute urinary retention, CHF (congestive heart failure), Acute diverticulitis, Elevated troponin Patient Disposition: Still a Patient Discharge Instructions Interventions: ED Discharge Assessment Last Done: 08/12/19 23:30 Discharge Problem: CHF (congestive heart failure) Qualifiers: Heart failure type: unspecified Heart failure chronicity: unspecified Qualified Code(s): I50.9 - Heart failure, unspecified The scribe's documentation has been prepared under my direction and personally reviewed by me in its entirety. I confirm that the note above accurately reflects all work, treatment, procedures, and medical decision making performed by me.
[2019-08-12 22:20] LABS: Troponin I 0.072 ng/ml (0-0.045)
[2019-08-12] MEDS ORDERED: SODIUM CHLORIDE 0.9% 500 ML IV STA (22:21)
--- NOTE | 2019-08-12 22:27 | CT Scan Report ---
ABDOMEN AND PELVIS CT WITHOUT CONTRAST CT DOSE: 624.74 mGy.cm HISTORY: Abdominal distention. TECHNIQUE: Multiaxial CT images of the abdomen and pelvis were performed without contrast. A dose lo wering technique was utilized adhering to the principles of ALARA. COMPARISON STUDY: Abdomen and pelvis CT 04/08/2017. FINDINGS: Interstitial thickening at the lung bases and a trace right pleural effusion consistent wit h pulmonary edema. The heart is enlarged. Pacemaker wires are noted. No pneumoperitoneum. No pneumato sis. No suspicious lytic or blastic osseous lesions. Old compression deformities at T12, L3, and L4. Subtle nodular contour to the liver consistent with cirrhosis. Cholelithiasis. The unenhanced spleen and pancreas are unremarkable. Mild adrenal gland thickening is likely age-related. There are few pun ctate left renal calculi. No ureteral stones or hydronephrosis. The bladder is moderately distended. The uterus and bilateral ovaries are unremarkable. No retroperitoneal lymphadenopathy. A few borderli ne dilated gas-filled loops of small bowel seen within the abdomen. This favors an ileus. There is no transition point identified on this noncontrast study to suggest an obstruction. Normal appendix. Mu ltiple colonic diverticula. Focal thickening and pericolonic fat stranding at the mid sigmoid colon. This is consistent with acute diverticulitis. There is an inflamed diverticulum best seen on image 22 0. No perforation or abscess identified at this time. IMPRESSION: 1. Acute sigmoid diverticulitis. No perforation or abscess at this time. 2. Pulmonary edema and a trace right pleural effusion. 3. Cholelithiasis. 4. Cirrhotic liver. 5. Left-sided nephrolithiasis. No hydronephrosis. ACT 112: Negative or not required by law. Electronically signed by: Ilya Russ M.D. 08/12/2019 10:26 PM
[2019-08-12 22:48] LABS: Appearance Urine Clear (Clear); Bilirubin Urine Negative (Negative); Blood Urine Negative (Negative); Color Urine Yellow; Glucose Urine UA Negative (Negative); Ketones Urine Negative (Negative); Leukocyte Esterase Urine Negative (Negative); Nitrite Urine Negative (Negative); Protein Urine Negative (Negative); Specific Gravity Urine 1.009 (1.000-1.030); Urobilinogen Urine Negative (Negative)
--- NOTE | 2019-08-12 22:50 | History & Physical Report ---
Date of Service August 12, 2019 Assessment & Plan (1) Acute diverticulitis: Admit PCU IV Zosyn Gentle IVF overnight at 60ml/hr as patient has anorexia. Not having significant diarrhea at this time, If worsens would check for C.diff. (2) Hyponatremia: I propose that this is due to CHF dilutional effect and GI losses of sodium. She has had increased edema in LE and confirmed pulm edema and effusion on CT chest. I will give IV Lasix 40mg tonight and continue her usual dose of Lasix po in the am. I have fluid restricted her to 1500ml/24hr. I will hold spironolactone as the combination of this drug and GI loss of sodium can exacerbate hyponatremia. (3) Acute on chronic diastolic (congestive) heart failure: IV Lasix 40mg tonight Continue Lasix 40mg BID in am. monitor potassium levels. (4) Elevated troponin: Anticipate this to be demand ischemia, will trend trop. (5) H/O mechanical aortic valve replacement: INR therapeutic at 3.5 Check daily INR Continue warfarin. (6) HTN (hypertension): Continue amlodipine and losartan. (7) Atrial fibrillation: Paced on monitor continue metoprolol (8) Anxiety: IV 0.5mg lorazepam in ED Continue prn BID lorazepam (9) Adult hypothyroidism: Continue levothyroxine. History of Present Illness 88 y/o female presented to the ED with nausea, bloating, lower abdominal pain and progressive weakness. She felt that she had the flu. No F/C, cough, chest pain, SOB, vomiting, or headache. She has had loose stools. Patient feels anxious about coming into the hospital. . Primary Care Provider: Juice Robledo MD Allergies Allergy/AdvReac Type Severity Reaction Status Date / Time Sulfa (Sulfonamide Allergy Intermediate HIVES Verified 08/12/19 21:07 Antibiotics) Home Medications Home Medications Medication Instructions Recorded Confirmed Type furosemide [Lasix] 40 mg PO BID #0 tab 01/17/12 08/12/19 History Centrum Silver Women 1 tab PO DAILY #0 07/31/13 08/12/19 History aspirin [Aspirin Low Dose] 81 mg PO QAM #0 07/31/13 08/12/19 History levothyroxine 75 mcg PO QAM #0 tab 07/31/13 08/12/19 History warfarin 3 mg PO 3XWK #0 tab 07/31/13 08/12/19 History Oxygen Home #0 09/10/13 02/13/19 History lorazepam [Ativan] 0.5 mg PO BID PRN #0 tab 09/10/13 08/12/19 History metoprolol tartrate 100 mg PO BID #0 tab 09/10/13 08/12/19 History spironolactone [Aldactone] 12.5 mg PO QAM #0 tab 09/10/13 08/12/19 History amlodipine [Norvasc] 5 mg PO QAM #0 tab 01/16/18 08/12/19 History warfarin 4 mg PO 4XWK 11/29/18 08/12/19 History calcium phosphate-vitamin D3 1 tab PO DAILY 08/12/19 08/12/19 History [Caltrate Gummy Bites] dorzolamide-timolol 1 drp OPHTHALMIC (EYE) DAILY 08/12/19 08/12/19 History losartan 50 mg PO BID 08/12/19 08/12/19 History Past Med/Surg History Medical History Atrial fibrillation (Acute) CHF (congestive heart failure) (Acute) HTN (hypertension) (Acute) Pacemaker Thyroid disease (Acute) Surgical History Aortic valve replaced (Acute) History of colonoscopy Hx of tricuspid valve repair (Acute) Status post bilateral knee replacements (Acute) Status post Mohs surgery Family History Brother Cancer Sister Cancer Social History Preferred Language: Georgian Communication Ability: Effective 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 Lungs- Faint crackles 1/[address] up b/l. Heart- regular rhythm; with mechanical valve click. no gallop, no rub appreciated Abdomen- normal bowel sounds, soft, Tenderness to palpation LLQ. Extremities- +2 pitting edema b/l lower ext. no calf tenderness; peripheral pulses intact Neuro- alert, oriented x 3; PERRL, EOMI; college coach II-XII grossly intact, non-focal. Skin- warm & dry Results & Data Vital Signs (Past 12 Hours) Vital Signs Temp Pulse Resp BP Pulse Ox 08/12/19 22:01 60 19 94 08/12/19 22:00 59 L 21 183/76 H 94 08/12/19 21:41 60 25 H 89 L 08/12/19 21:30 60 23 167/83 H 89 L 08/12/19 20:13 36.4 C L 64 20 156/79 H 91 Laboratory Results Laboratory Results WBC 9.31 K/uL (4.8-10.8) 08/12/19 21:15 RBC 4.22 M/uL (4.2-5.4) 08/12/19 21:15 Hgb 13.7 g/dL (12.0-16.0) 08/12/19 21:15 Hct 38.2 % (37-47) 08/12/19 21:15 MCV 90.5 fL (80-100) 08/12/19 21:15 MCH 32.5 pg (25-34) 08/12/19 21:15 MCHC 35.9 g/dL (32-36) 08/12/19 21:15 RDW Std Deviation 45.2 fL (36.4-46.3) 08/12/19 21:15 RDW Coeff of Sia 13.6 % (11.5-14.5) 08/12/19 21:15 Plt Count 132 K/uL (130-400) 08/12/19 21:15 MPV 10.2 fL (7.4-10.4) 08/12/19 21:15 Immature Gran % (Auto) 0.2 % 08/12/19 21:15 Neut % (Auto) 86.5 % 08/12/19 21:15 Lymph % (Auto) 7.5 % 08/12/19 21:15 [place] % (Auto) 5.4 % 08/12/19 21:15 Eos % (Auto) 0.3 % 08/12/19 21:15 Baso % (Auto) 0.1 % 08/12/19 21:15 Immature Gran # (Auto) 0.02 K/uL (0.00-0.02) 08/12/19 21:15 Neut # (Auto) 8.05 K/uL (1.4-6.5) H 08/12/19 21:15 Lymph # (Auto) 0.70 K/uL (1.2-3.4) L 08/12/19 21:15 Jerome # (Auto) 0.50 K/uL (0.11-0.59) 08/12/19 21:15 Eos # (Auto) 0.03 K/uL (0-0.5) 08/12/19 21:15 Baso # (Auto) 0.01 K/uL (0-0.2) 08/12/19 21:15 PT 33.1 Seconds (9.0-12.0) H 08/12/19 21:15 INR 3.5 (0.9-1.1) H 08/12/19 21:15 APTT 41.0 Seconds (21.0-31.0) H 08/12/19 21:15 PTT Ratio 1.5 08/12/19 21:15 Sodium 116 mmol/L (136-145) L* 08/12/19 21:15 Potassium 3.3 mmol/L (3.5-5.1) L 08/12/19 21:15 Chloride 81 mmol/L (98-107) L 08/12/19 21:15 Carbon Dioxide 26 mmol/L (21-32) 08/12/19 21:15 Anion Gap 9.0 (3-11) 08/12/19 21:15 BUN 10 mg/dl (7-18) 08/12/19 21:15 Creatinine 0.57 mg/dl (0.6-1.2) L 08/12/19 21:15 Est Cr Clr Drug Dosing Not Reportable 08/12/19 21:15 Est GFR ( Amer) 96.6 08/12/19 21:15 Est GFR (Non-Af Amer) 83.4 08/12/19 21:15 BUN/Creatinine Ratio 16.9 (10-20) 08/12/19 21:15 Glucose 148 mg/dl (70-99) H 08/12/19 21:15 Calcium 8.9 mg/dl (8.5-10.1) 08/12/19 21:15 Magnesium 1.5 mg/dl (1.8-2.4) L 08/12/19 21:15 Total Bilirubin 1.6 mg/dl (0.2-1) H 08/12/19 21:15 AST 34 U/L (15-37) 08/12/19 21:15 ALT 28 U/L (12-78) 08/12/19 21:15 Alkaline Phosphatase 155 U/L (45-117) H 08/12/19 21:15 Troponin I 0.072 ng/ml (0-0.045) H* 08/12/19 21:15 Total Protein 8.3 gm/dl (6.4-8.2) H 08/12/19 21:15 Albumin 3.6 gm/dl (3.4-5.0) 08/12/19 21:15 Globulin 4.7 gm/dl (2.5-4.0) H 08/12/19 21:15 Albumin/Globulin Ratio 0.8 (0.9-2) L 08/12/19 21:15 Lipase 112 U/L (73-393) 08/12/19 21:15 Urine Color Yellow 08/12/19 22:33 Urine Appearance Clear (Clear) 08/12/19 22:33 Urine pH 8.0 (4.5-7.5) H 08/12/19 22:33 Ur Specific [place] 1.009 (1.000-1.030) 08/12/19 22:33 Urine Protein Negative (Negative) 08/12/19 22:33 Urine Glucose (UA) Negative (Negative) 08/12/19 22:33 Urine Ketones Negative (Negative) 08/12/19 22:33 Urine Blood Negative (Negative) 08/12/19 22:33 Urine Nitrite Negative (Negative) 08/12/19 22:33 Urine Bilirubin Negative (Negative) 08/12/19 22:33 Urine Urobilinogen Negative (Negative) 08/12/19 22:33 Ur Leukocyte Esterase Negative (Negative) 08/12/19 22:33 Influenza Type A (PCR) Neg for Influ A (Neg) 08/12/19 21:10 Influenza Type B (PCR) Neg for Influ B (Neg) 08/12/19 21:10 Diagnostic Findings [facility], [place] [phone] XRay Report Patient: XIANG GRANADOS Date: 08/12/19 MR#: [id number]: 1176 GIULIA Acct ID:[id number]: Date: [address] [place] [address] Zip: [place] [address] Age: 88Location: ED Sex: F Room/Bed: Att Phy:Diagnosis: DIZZY, UNABLE TO VOID Adenike Phy: Juice Silverman M.D.Service Date: 08/12/19 Fam Phy:Interpreting Phy: Ilya Russ MD Admit Phy: Ordering Phy: Donnie Galindo M.D. cc: ~ XR chest 1V portable HISTORY: Shortness of breath. COMPARISON: Chest 09/11/2013. FINDINGS: The heart is enlarged. Poststernotomy changes. Cardiac valve prostheses are again noted. Bibasilar linear densities favor subsegmental atelectasis. Trace right pleural effusion. Progressive interstitial vascular thickening consistent with mild pulmonary edema. IMPRESSION: Cardiomegaly, mild interstitial pulmonary edema, and a trace right pleural effusion. ACT 112: Negative or not required by law. Electronically signed by: Ilya Russ M.D. 08/12/2019 9:44 PM Dictated: [id number]/12/[id number] Transcribed: 08/12/19 214 [facility], [place] [phone] CT Scan Report Patient: XIANG GRANADOS Date: 08/12/19 MR#: [id number]: [id number] GIULIA Acct ID:[id number]: Date: [address] [place] [address] Zip: [place] [address] Age: 88Location: ED Sex: F Room/Bed: Att Phy:Diagnosis: DIZZY, UNABLE TO VOID Adenike Phy: Juice Silverman M.D.Service Date: 08/12/19 [facility] Phy:Interpreting Phy: Ilya Rsus MD Admit Phy: Ordering Phy: Donnie Galindo M.D. cc: ~ ABDOMEN AND PELVIS CT WITHOUT CONTRAST CT DOSE: 624.74 mGy.cm HISTORY: Abdominal distention. TECHNIQUE: Multiaxial CT images of the abdomen and pelvis were performed without contrast. A dose lowering technique was utilized adhering to the principles of ALARA. COMPARISON STUDY: Abdomen and pelvis CT 04/08/2017. FINDINGS: Interstitial thickening at the lung bases and a trace right pleural effusion consistent with pulmonary edema. The heart is enlarged. Pacemaker wires are noted. No pneumoperitoneum. No pneumatosis. No suspicious lytic or blastic osseous lesions. Old compression deformities at T12, L3, and L4. Subtle nodular contour to the liver consistent with cirrhosis. Cholelithiasis. The unenhanced spleen and pancreas are unremarkable. Mild adrenal gland thickening is likely age-related. There are few punctate left renal calculi. No ureteral stones or hydronephrosis. The bladder is moderately distended. The uterus and bilateral ovaries are unremarkable. No retroperitoneal lymphadenopathy. A few borderline dilated gas-filled loops of small bowel seen within the abdomen. This favors an ileus. There is no transition point identified on this noncontrast study to suggest an obstruction. Normal appendix. Multiple colonic diverticula. Focal thickening and pericolonic fat stranding at the mid sigmoid colon. This is consistent with acute diverticulitis. There is an inflamed diverticulum best seen on image 220. No perforation or abscess identified at this time. IMPRESSION: 1. Acute sigmoid diverticulitis. No perforation or abscess at this time. 2. Pulmonary edema and a trace right pleural effusion. 3. Cholelithiasis. 4. Cirrhotic liver. 5. Left-sided nephrolithiasis. No hydronephrosis. ACT 112: Negative or not required by law. Electronically signed by: Ilya Russ M.D. 08/12/2019 10:26 PM Dictated: 08/12/[id number] Transcribed: 08/12/192217 PG Care Time/CCT Total # of Minutes Spent Total Time Spent: 65 Total Time Spent with Patient: Total time spent is greater than 50% in coordination of care (as documented) at patient's floor/unit and/or counseling patient: Coding Level of Care Code 15061 Initial Inpt Care Lvl 3 Diagnoses Acute diverticulitis K57.92 Hyponatremia E87.1 Acute on chronic diastolic (congestive) heart failure I50.33 Elevated troponin R79.89 H/O mechanical aortic valve replacement Z95.2 HTN (hypertension) I10 Atrial fibrillation I48.91 Anxiety F41.9 Adult hypothyroidism E03.9
[2019-08-12] MEDS ORDERED: PIPERACILLIN/TAZOBACTAM 4.5 GM/120 ML BAG IV ONE (22:59)
[2019-08-12] MEDS ORDERED: PIPERACILL/TAZOBAC CONSULT ACTIVE PRN (22:59)
[2019-08-12] MEDS ORDERED: FUROSEMIDE 40 MG/4 ML VIAL IV STA (23:01)
[2019-08-12 23:14] LABS: Magnesium 1.5 mg/dl (1.8-2.4)
[2019-08-12] MEDS ORDERED: LORazepam 0.5 MG/1 ML VIAL IV STA (23:23)
[2019-08-13] MEDS ORDERED: ONDANSETRON INJ 2 MG/ML 2 ML VIAL IV PRN (00:06)
[2019-08-13] MEDS ORDERED: LORazepam 0.5 MG TAB PO PRN (00:06)
[2019-08-13] MEDS ORDERED: ACETAMINOPHEN 325 MG TAB PO PRN (00:06)
[2019-08-13] MEDS ORDERED: SODIUM CHLORIDE 0.9% 1000ML 1,000 ML IV SCH (00:06)
[2019-08-13] MEDS ORDERED: PNEUMOCOCCAL ADMINISTRATION CHARGE ONE (00:25)
[2019-08-13] MEDS ORDERED: PNEUMOCOCCAL POLYSACCHARIDES 25 MCG/0.5 ML VIAL/SYR IM ONE (00:25)
[2019-08-13] MEDS ORDERED: PIPERACILL/TAZOBAC CONSULT ACTIVE PRN (00:46)
[2019-08-13] MEDS ORDERED: HydrALAZINE HCL 20 MG/ML VIAL IV PRN ×2 (00:49→15:53)
[2019-08-13] MEDS: POTASSIUM CHLORIDE / WTR 10 MEQ/100 ML PLCT IV SCH ×2 (00:58→01:54)
[2019-08-13] MEDS: PIPERACILLIN/TAZOBACTAM 3.375 GM in DEXTROSE 5% 100 ML IV SCH ×3 (05:55→21:44)
[2019-08-13] MEDS: LEVOTHYROXINE SODIUM 75 MCG TABLET PO SCH (05:57)
[2019-08-13 06:20] LABS: Hematocrit (blood only) 36.4 % (37-47); Mean Corpuscular Hemoglobin 31.9 pg (25-34); Mean Corpuscular Hgb Conc 35.7 g/dL (32-36); Mean Corpuscular Volume 89.4 fL (80-100); Mean Platelet Volume 10.4 fL (7.4-10.4); Platelet Count 126 K/uL (130-400); RDW Coefficient of Variation 13.4 % (11.5-14.5); Red Blood Count 4.07 M/uL (4.2-5.4); White Blood Count 7.55 K/uL (4.8-10.8)
[2019-08-13 06:35] LABS: INR 3.3 (0.9-1.1); Prothrombin Time 31.5 Seconds (9.0-12.0)
[2019-08-13 06:47] LABS: BUN Creatinine Ratio 14.3 (10-20); Calcium 7.9 mg/dl (8.5-10.1); Creatinine Clr Calc Pharmacy 79.8 ml/min; Est GFR (African American) 100.9; Potassium 2.8 mmol/L (3.5-5.1)
[2019-08-13 06:53] LABS: Troponin I 0.075 ng/ml (0-0.045)
[2019-08-13] MEDS: METOPROLOL TARTRATE 100 MG TAB PO SCH ×2 (08:14→20:11)
[2019-08-13] MEDS: ASPIRIN 81 MG ECTAB PO SCH (08:14)
[2019-08-13] MEDS: AMLODIPINE BESYLATE 5 MG TAB PO SCH (08:14)
[2019-08-13] MEDS: POTASSIUM CHLORIDE 20 MEQ TABCR PO SCH (08:15)
[2019-08-13] MEDS: LOSARTAN POTASSIUM 50 MG TAB PO SCH ×2 (08:15→20:11)
[2019-08-13] MEDS: FUROSEMIDE 40 MG TAB PO SCH ×2 (08:15→20:11)
[2019-08-13] MEDS: FAMOTIDINE 20 MG TAB PO SCH ×2 (08:15→20:11)
[2019-08-13] MEDS: DORZOLAMIDE/TIMOLOL 22.3/6.8MG/ML 10 ML BTL OP SCH (08:15)
[2019-08-13] MEDS: CEROVITE ADV FORMULA TAB PO SCH (08:15)
[2019-08-13] MEDS ORDERED: CALCIUM 600MG + VIT D 400 IU TAB PO SCH (09:00)
--- NOTE | 2019-08-13 12:44 | Electrocardiogram Report ---
Test Reason : Blood Pressure : / mmHG Vent. Rate : 060 BPM Atrial Rate : 023 BPM P-R Int : 000 ms QRS Dur : 182 ms QT Int : 544 ms P-R-T Axes : 000 -78 108 degrees QTc Int : 544 ms Poor data quality, interpretation may be adversely affected Ventricular-paced rhythm Abnormal ECG When compared with ECG of 17-JAN-2018 13:32, Vent. rate has decreased BY 20 BPM Confirmed by Demetrio Hernandez ([id number]) on 08/13/2019 12:44:00 PM Referred By: Juice Robledo Confirmed By:Demetrio Hernandez
--- NOTE | 2019-08-13 15:36 | Hospitalist Progress Note ---
Date of Service August 13, 2019 Assessment & Plan (1) Acute diverticulitis: CT a/p on 08/12 showed acute sigmoid diverticulitis. - Continue Zosyn - Improving today already. Advanced diet. (2) Hyponatremia: Sodium was 116 on admission. Low-normal priors. [place] to be due to CHF dilutional effect and GI losses of sodium. - Improved to 121 by 08/13. - Continue usual dose of Lasix PO - Recheck this afternoon. - Fluid restriction to 1500ml/24hr - Hold spironolactone (3) Acute on chronic diastolic (congestive) heart failure: Echo on 08/13/2019 showed EF 55-60%. - Continue Lasix 40mg PO BID - Appears euvolemic today on exam. Stop IV fluids. (4) Elevated troponin: Type 2 MD/demand ischemia - No chest pain. Troponins stable at 0.07. - Continue ASA - No further inpatient needs (5) H/O mechanical aortic valve replacement: Unknown date. - Check daily INR; presently 3.3. - Continue warfarin. (6) HTN (hypertension): BP is 150/80 today. - Continue metoprolol, amlodipine, and losartan. (7) Atrial fibrillation: Paced on monitor. - Continue metoprolol for rate - Continue warfarin for anticoagulation (8) Anxiety: No anxiety on interview today. - Continue lorazepam PRN (9) Adult hypothyroidism: TSH was 2.6 in 09/2018. - Continue levothyroxine. - Recheck TSH in the morning Subjective Feeling better. Reports some nausea that she feels is due to taking so many pills without eating. Otherwise minimal pain. Reports no fevers/chills, chest pain, shortness of breath, or vomiting. Physical Exam Constitutional: WD/WN, vitals as above Eyes: EOM intact bilaterally; no conjunctival abnormality ENMT: external ear and nose normal, oropharynx normal Neck: trachea midline, no thyromegaly normal visual inspection Respiratory: normal respiratory effort, lungs clear to auscultation no respiratory distress Cardiovascular: RRR, no murmur, no edema Gastrointestinal (Abdomen): Inspection/Auscultation: abdomen normal to inspection; abdomen not distended Musculoskeletal: no cyanosis or clubbing, extremities motor strength 5/5 Skin: no rashes, warm and dry Neurologic: moves all extremities and awake Psychiatric: Orientation: alert, oriented to person and cooperative Results & Data ([facility]) Vital Signs (Past 12 Hours) Vital Signs Temp Pulse Resp BP BP Pulse Ox 08/13/19 11:16 36.6 C 60 20 127/65 91 08/13/19 07:06 36.8 C 63 18 145/79 H 93 08/13/19 03:46 36.4 C L 60 18 151/66 H 95 PG Care Time/CCT Total # of Minutes Spent Total Time Spent with Patient: Total time spent is greater than 50% in coordination of care (as documented) at patient's floor/unit and/or counseling patient: Coding Level of Care Code 33714 Subseq Hosp Care Lvl 3 Diagnoses Acute diverticulitis K57.92 Hyponatremia E87.1 Acute on chronic diastolic (congestive) heart failure I50.33 Elevated troponin R79.89 H/O mechanical aortic valve replacement Z95.2 HTN (hypertension) I10 Atrial fibrillation I48.91 Anxiety F41.9 Adult hypothyroidism E03.9
[2019-08-13] MEDS ORDERED: WARFARIN SOD 3 MG TAB PO SCH (16:00)
[2019-08-13] MEDS ORDERED: WARFARIN SOD 4 MG TAB PO SCH (16:00)
[2019-08-13 17:01] LABS: BUN Creatinine Ratio 11.4 (10-20); Calcium 8.3 mg/dl (8.5-10.1); Creatinine Clr Calc Pharmacy 72.5 ml/min; Est GFR (African American) 97.7; Est GFR (Non-African American) 84.3; Thyroid Stimulating Hormone 2.52 uIu/ml (0.300-4.500)
[2019-08-13 21:05] LABS: Potassium 3.5 mmol/L (3.5-5.1)
[2019-08-14] MEDS: PIPERACILLIN/TAZOBACTAM 3.375 GM in DEXTROSE 5% 100 ML IV SCH ×3 (06:05→21:13)
[2019-08-14] MEDS: LEVOTHYROXINE SODIUM 75 MCG TABLET PO SCH (06:06)
[2019-08-14 06:23] LABS: Hemoglobin 13.1 g/dL (12.0-16.0); Mean Corpuscular Hgb Conc 35.4 g/dL (32-36); Mean Corpuscular Volume 90.5 fL (80-100); Platelet Count 131 K/uL (130-400); RDW Coefficient of Variation 13.5 % (11.5-14.5); RDW Standard Deviation 44.6 fL (36.4-46.3); Red Blood Count 4.09 M/uL (4.2-5.4); White Blood Count 5.95 K/uL (4.8-10.8)
[2019-08-14 06:43] LABS: Prothrombin Time 36.5 Seconds (9.0-12.0)
[2019-08-14 06:54] LABS: BUN Creatinine Ratio 14.6 (10-20); Calcium 8.4 mg/dl (8.5-10.1); Creatinine Clr Calc Pharmacy 79.1 ml/min; Est GFR (African American) 100.9; Potassium 3.1 mmol/L (3.5-5.1)
[2019-08-14 07:00] LABS: INR 3.9 (0.9-1.1)
[2019-08-14] MEDS: CEROVITE ADV FORMULA TAB PO SCH (08:16)
[2019-08-14] MEDS: POTASSIUM CHLORIDE 20 MEQ TABCR PO SCH (08:16)
[2019-08-14] MEDS: FUROSEMIDE 40 MG TAB PO SCH ×2 (08:16→21:02)
[2019-08-14] MEDS: FAMOTIDINE 20 MG TAB PO SCH ×2 (08:16→21:02)
[2019-08-14] MEDS: METOPROLOL TARTRATE 100 MG TAB PO SCH ×2 (08:16→21:02)
[2019-08-14] MEDS: AMLODIPINE BESYLATE 5 MG TAB PO SCH (08:16)
[2019-08-14] MEDS: ASPIRIN 81 MG ECTAB PO SCH (08:16)
[2019-08-14] MEDS: DORZOLAMIDE/TIMOLOL 22.3/6.8MG/ML 10 ML BTL OP SCH ×2 (08:17→21:01)
[2019-08-14] MEDS: LOSARTAN POTASSIUM 50 MG TAB PO SCH ×2 (08:17→21:02)
--- NOTE | 2019-08-14 09:10 | Hospitalist Progress Note ---
Date of Service August 14, 2019 Assessment & Plan (1) Acute diverticulitis: CT a/p on 08/12 showed acute sigmoid diverticulitis. - Continue Zosyn - Improving today already. Advanced diet to soft diet. (2) Hyponatremia: Sodium was 116 on admission. Low-normal priors. [place] to be due to CHF dilutional effect and GI losses of sodium. - Improved to 124 by 08/14. - Continue usual dose of Lasix PO - Fluid restriction to 1500ml/24hr - Hold spironolactone (3) Acute on chronic diastolic (congestive) heart failure: Echo on 08/13/2019 showed EF 55-60%. - Continue Lasix 40mg PO BID - Appears euvolemic today on exam. Stopped IV fluids on 08/13. (4) Elevated troponin: Type 2 ID/demand ischemia - No chest pain. Troponins stable at 0.07. - Continue ASA - No further inpatient needs (5) H/O mechanical aortic valve replacement: Unknown date. - Check daily INR; presently 3.9. - Lowered warfarin dose on 08/13; will hold today. No signs of bleeding. (6) HTN (hypertension): BP is 135/70 today. - Continue metoprolol, amlodipine, and losartan. (7) Atrial fibrillation: Paced on monitor. - Continue metoprolol for rate - Continue warfarin for anticoagulation (8) Anxiety: No anxiety on interview today. - Continue lorazepam PRN (9) Adult hypothyroidism: TSH was 2.5 this admission. - Continue levothyroxine. Subjective Doing well today. No major concerns. No abdominal pain. Appetite good. Reports no fevers/chills, chest pain, shortness of breath, abdominal pain, nausea, or vomiting. Physical Exam Constitutional: WD/WN, vitals as above Eyes: EOM intact bilaterally; no conjunctival abnormality ENMT: external ear and nose normal, oropharynx normal Neck: trachea midline, no thyromegaly normal visual inspection Respiratory: normal respiratory effort, lungs clear to auscultation no respiratory distress Cardiovascular: RRR, no murmur, no edema Gastrointestinal (Abdomen): Inspection/Auscultation: abdomen normal to inspection; abdomen not distended Musculoskeletal: no cyanosis or clubbing, extremities motor strength 5/5 Skin: no rashes, warm and dry Neurologic: moves all extremities and awake Psychiatric: Orientation: alert, oriented to person and cooperative Results & Data ([facility]) Vital Signs (Past 12 Hours) Vital Signs Temp Pulse Pulse Resp BP BP Pulse Ox 08/14/19 07:11 36.5 C 60 18 136/67 98 08/14/19 03:45 36.8 C 62 16 138/64 92 08/14/19 00:00 60 08/13/19 23:06 36.7 C 60 16 142/70 H 95 PG Care Time/CCT Total # of Minutes Spent Total Time Spent with Patient: Total time spent is greater than 50% in coordination of care (as documented) at patient's floor/unit and/or counseling patient: Coding Level of Care Code 30382 Subseq Hosp Care Lvl 3 Diagnoses Acute diverticulitis K57.92 Hyponatremia E87.1 Acute on chronic diastolic (congestive) heart failure I50.33 Elevated troponin R79.89 H/O mechanical aortic valve replacement Z95.2 HTN (hypertension) I10 Atrial fibrillation I48.91 Anxiety F41.9 Adult hypothyroidism E03.9
[2019-08-14] MEDS: POTASSIUM CHLORIDE / WTR 10 MEQ/100 ML PLCT IV SCH ×2 (10:05→10:56)
[2019-08-14] MEDS ORDERED: WARFARIN SOD 3 MG TAB PO SCH (16:00)
[2019-08-14] MEDS ORDERED: Nursing to Pharmacy Communication ONE (20:06)
[2019-08-14] MEDS: [UNRECOGNIZED DRUG - OTHER] SCH (23:43)
[2019-08-15 05:43] LABS: Hematocrit (blood only) 40.7 % (37-47); Hemoglobin 14.2 g/dL (12.0-16.0); Mean Corpuscular Hemoglobin 32.3 pg (25-34); Mean Corpuscular Hgb Conc 34.9 g/dL (32-36); Mean Corpuscular Volume 92.7 fL (80-100); Mean Platelet Volume 10.2 fL (7.4-10.4); Platelet Count 135 K/uL (130-400); RDW Coefficient of Variation 13.6 % (11.5-14.5); RDW Standard Deviation 46.7 fL (36.4-46.3); Red Blood Count 4.39 M/uL (4.2-5.4); White Blood Count 5.75 K/uL (4.8-10.8)
[2019-08-15 05:51] LABS: INR 3.3 (0.9-1.1); Prothrombin Time 31.4 Seconds (9.0-12.0)
[2019-08-15] MEDS: LEVOTHYROXINE SODIUM 75 MCG TABLET PO SCH (06:01)
[2019-08-15] MEDS: PIPERACILLIN/TAZOBACTAM 3.375 GM in DEXTROSE 5% 100 ML IV SCH ×3 (06:16→21:46)
[2019-08-15 06:19] LABS: BUN Creatinine Ratio 16.5 (10-20); Calcium 9.2 mg/dl (8.5-10.1); Est GFR (African American) 95.5; Est GFR (Non-African American) 82.4; Magnesium 1.5 mg/dl (1.8-2.4); Potassium 3.4 mmol/L (3.5-5.1)
[2019-08-15] MEDS: CEROVITE ADV FORMULA TAB PO SCH (08:13)
[2019-08-15] MEDS: DORZOLAMIDE/TIMOLOL 22.3/6.8MG/ML 10 ML BTL OP SCH ×2 (08:13→21:33)
[2019-08-15] MEDS: ASPIRIN 81 MG ECTAB PO SCH (08:13)
[2019-08-15] MEDS: METOPROLOL TARTRATE 100 MG TAB PO SCH ×2 (08:14→21:35)
[2019-08-15] MEDS: FAMOTIDINE 20 MG TAB PO SCH ×2 (08:14→21:35)
[2019-08-15] MEDS: POTASSIUM CHLORIDE 20 MEQ TABCR PO SCH (08:14)
[2019-08-15] MEDS: AMLODIPINE BESYLATE 5 MG TAB PO SCH (08:14)
[2019-08-15] MEDS: FUROSEMIDE 40 MG TAB PO SCH ×2 (08:16→21:35)
[2019-08-15] MEDS: [UNRECOGNIZED DRUG - OTHER] SCH ×2 (08:16→15:30)
[2019-08-15] MEDS: LOSARTAN POTASSIUM 50 MG TAB PO SCH ×2 (08:16→21:35)
[2019-08-15] MEDS ORDERED: MAGNESIUM SULFATE / D5W 1 GM/100 ML BAG IV ONE (10:00)
--- NOTE | 2019-08-15 12:48 | Hospitalist Progress Note ---
Date of Service August 15, 2019 Assessment & Plan (1) Acute diverticulitis: CT a/p on 08/12 showed acute sigmoid diverticulitis. - Switch to Augmetin from Zosyn - Improving today already. Advanced diet to normal. (2) Hyponatremia: Sodium was 116 on admission. Low-normal priors. [place] to be due to CHF dilutional effect and GI losses of sodium. She does also report she was drinking lots of water prior to admission for what she thought were cold/flu symptoms. - Improved to 129 by 08/15. - Continue usual dose of Lasix PO - Hold spironolactone (3) Acute on chronic diastolic (congestive) heart failure: Echo on 08/13/2019 showed EF 55-60%. - Continue Lasix 40mg PO BID - Appears euvolemic today on exam. She only really needed one dose of IV Lasix to correct, so this was a very mild exacerbation if at all. (4) Elevated troponin: Type 2 AL/demand ischemia. No chest pain. Troponins stable at 0.07. EKGs were negative for acute ischemia. - Continue ASA - No further inpatient needs (5) H/O mechanical aortic valve replacement: Unknown date. - Check daily INR; presently 3.3. - Lowered warfarin dose on 08/13; held on 08/14 & 08/15. No signs of bleeding. Letting it trickle down to her normal level. (6) HTN (hypertension): BP is 150/70 today. - Continue metoprolol, amlodipine, and losartan. (7) Atrial fibrillation: Paced on monitor. - Continue metoprolol for rate - Continue warfarin for anticoagulation (8) Anxiety: No anxiety on interview today. - Continue lorazepam PRN (9) Adult hypothyroidism: TSH was 2.5 this admission. - Continue levothyroxine. Subjective Doing better today. No abdominal pain. Stronger as well. Reports no fevers/chills, chest pain, shortness of breath, abdominal pain, nausea, or vomiting. Physical Exam Constitutional: WD/WN, vitals as above Eyes: EOM intact bilaterally; no conjunctival abnormality ENMT: external ear and nose normal, oropharynx normal Neck: trachea midline, no thyromegaly normal visual inspection Respiratory: normal respiratory effort, lungs clear to auscultation no respiratory distress Cardiovascular: RRR, no murmur, no edema Gastrointestinal (Abdomen): Inspection/Auscultation: abdomen normal to inspection; abdomen not distended Musculoskeletal: no cyanosis or clubbing, extremities motor strength 5/5 Skin: no rashes, warm and dry Neurologic: moves all extremities and awake Psychiatric: Orientation: alert, oriented to person and cooperative Results & Data ([facility]) Vital Signs (Past 12 Hours) Vital Signs Temp Pulse Resp BP Pulse Ox 08/15/19 08:20 62 08/15/19 07:02 36.7 C 59 L 16 147/67 H 98 PG Care Time/CCT Total # of Minutes Spent Total Time Spent with Patient: Total time spent is greater than 50% in coordination of care (as documented) at patient's floor/unit and/or counseling patient: Coding Level of Care Code 14310 Subseq Hosp Care Lvl 2 Diagnoses Acute diverticulitis K57.92 Hyponatremia E87.1 Acute on chronic diastolic (congestive) heart failure I50.33 Elevated troponin R79.89 H/O mechanical aortic valve replacement Z95.2 HTN (hypertension) I10 Atrial fibrillation I48.91 Anxiety F41.9 Adult hypothyroidism E03.9
[2019-08-16] MEDS: [UNRECOGNIZED DRUG - OTHER] SCH ×2 (00:08→08:08)
[2019-08-16] MEDS: PIPERACILLIN/TAZOBACTAM 3.375 GM in DEXTROSE 5% 100 ML IV SCH (05:40)
[2019-08-16] MEDS: LEVOTHYROXINE SODIUM 75 MCG TABLET PO SCH (05:40)
[2019-08-16 06:12] LABS: INR 2.4 (0.9-1.1); Prothrombin Time 23.5 Seconds (9.0-12.0)
[2019-08-16 06:35] LABS: BUN Creatinine Ratio 20.7 (10-20); Calcium 8.5 mg/dl (8.5-10.1); Creatinine Clr Calc Pharmacy 54.3 ml/min; Est GFR (African American) 91.2; Est GFR (Non-African American) 78.6; Magnesium 1.6 mg/dl (1.8-2.4); Potassium 3.3 mmol/L (3.5-5.1)
[2019-08-16] MEDS: DORZOLAMIDE/TIMOLOL 22.3/6.8MG/ML 10 ML BTL OP SCH (07:53)
[2019-08-16] MEDS: POTASSIUM CHLORIDE 20 MEQ TABCR PO SCH (07:54)
[2019-08-16] MEDS: FUROSEMIDE 40 MG TAB PO SCH (07:54)
[2019-08-16] MEDS: ASPIRIN 81 MG ECTAB PO SCH (07:54)
[2019-08-16] MEDS: CEROVITE ADV FORMULA TAB PO SCH (07:54)
[2019-08-16] MEDS: AMLODIPINE BESYLATE 5 MG TAB PO SCH (07:55)
[2019-08-16] MEDS: METOPROLOL TARTRATE 100 MG TAB PO SCH (07:55)
[2019-08-16] MEDS: LOSARTAN POTASSIUM 50 MG TAB PO SCH (07:55)
[2019-08-16] MEDS ORDERED: POTASSIUM CHLORIDE PWD 20 MEQ PACK PO STA (08:14)
[2019-08-16] MEDS: MAGNESIUM SULFATE / D5W 1 GM/100 ML BAG IV SCH ×2 (10:09→11:15)
[2019-08-16] MEDS: FAMOTIDINE 20 MG TAB PO SCH (10:10)
[2019-08-16] MEDS ORDERED: PNEUMOCOCCAL POLYSACCHARIDES 25 MCG/0.5 ML VIAL/SYR IM ONE (15:30)
--- NOTE | 2019-08-16 16:29 | Discharge Summary ---
Date of Service August 16, 2019 Principal Diagnosis Diverticulitis and low blood sodium Discharge Exam Constitutional WD/WN, vitals as above Eyes EOM intact bilaterally; no conjunctival abnormality ENMT external ear and nose normal, oropharynx normal Neck trachea midline, no thyromegaly normal visual inspection Respiratory normal respiratory effort, lungs clear to auscultation no respiratory distress Cardiovascular RRR, no murmur, no edema Gastrointestinal (Abdomen) Inspection/Auscultation: abdomen normal to inspection; abdomen not distended Musculoskeletal no cyanosis or clubbing, extremities motor strength 5/5 Skin no rashes, warm and dry Neurologic moves all extremities and awake Psychiatric Orientation: alert, oriented to person and cooperative Discharge Data Allergies Allergy/AdvReac Type Severity Reaction Status Date / Time Sulfa (Sulfonamide Allergy Intermediate HIVES Verified 08/12/19 21:07 Antibiotics) Consultations 08/12/19 22:15 ED Decision to Admit Stat Ordered Studies 08/12/19 21:36 CT abd pelvis wo con Stat Hospital Course (1) Acute diverticulitis: CT a/p on 08/12 showed acute sigmoid diverticulitis. - Was on Zosyn -> Did incredibly well. By the second day, her pain was gone. - Discharged on 3 more days of Augmentin for a total of a 7-day course. I went with a shorter course given her rapid and complete improvement while in the hospital. (2) Hyponatremia: Sodium was 116 on admission. Low-normal priors. [place] to be due to CHF dilutional effect and GI losses of sodium. She does also report she was drinking lots of water prior to admission for what she thought were cold/flu symptoms. Possibly some element of SIADH vs. "tea & toast" diet? - Improved to 129 by 08/15. - Continued usual dose of Lasix PO - Held spironolactone on dischcarge with approval from Dr. Mccloud. - Encouraged 1500 to 2000 mL daily water intake and improved protein consumption in case there was an element of SIADH or low-solute hyponatremia. She said she was "really drinking" lots of water before coming to the hospital due to her cold. - Will need outpatient BMP in 1 week to be sure sodium has normalized. (3) Acute on chronic diastolic (congestive) heart failure: Echo on 08/13/2019 showed EF 55-60%. - Continue Lasix 40mg PO BID - Appears euvolemic today on exam. She only really needed one dose of IV Lasix to correct, so this was a very mild exacerbation if at all. (4) Elevated troponin: Type 2 AK/demand ischemia. No chest pain. Troponins stable at 0.07. EKGs were negative for acute ischemia. - Continue ASA - No further inpatient needs (5) H/O mechanical aortic valve replacement: Unknown date of replacement. - Lowered warfarin dose on 08/13; held on 08/14 & 08/15. No signs of bleeding. Letting it trickle down to her normal level. - On discharge, INR was 2.4. Will resume normal dosing now that she is back on her normal home foods. Will follow up with Dr. Robledo's office for check. (6) HTN (hypertension): BP is 150/70 today. - Continue metoprolol, amlodipine, and losartan. (7) Atrial fibrillation: Paced on monitor. - Continue metoprolol for rate - Continue warfarin for anticoagulation (8) Anxiety: No anxiety on interview today. - Continue lorazepam PRN (9) Adult hypothyroidism: TSH was 2.5 this admission. - Continue levothyroxine. Total Time Total Time Spent Total Time Spent (In Minutes): 35 Discharge Plan Discharge Items Patient Disposition: Home - Self-Care Reason For Visit: HYPONATREMIA, DIVERTICULITIS Discharge Diagnosis: Low sodium & diverticulitis Activity: Resume your previous activity Non-emergency contact: Primary Care Provider and Medical Voucher Clerk Call non-emergency contact if: you have any medication questions, your symptoms worsen and your temperature is above 101 Follow-up/Referrals: Juice Robledo MD [Primary Care Provider] - 08/21/19 11:30 am Jimmy Mccloud DO [Medical Voucher Clerk] - 08/30/19 9:00 am (Appointment with Srikanth Deras PAC at [facility]) Diet: Heart Healthy Fluids: 2000ml (8 cups) Addtl Attending Provider Instructions: Ms. Mo, You were admitted to the hospital with low sodium and an infection in your colon called diverticulitis. For the low sodium, we held your spironolactone (the half-tablet you take at home). I discussed this with Dr. Mccloud who agrees with this plan as this medication can sometimes lower your sodium. We also lowered your water intake temporarily which I believe helped your sodium rise as well. We discussed this, and you should probably stick with about 6-8 cups of water per day. More than this can actually dilute the sodium in your body and lower your sodium. You should keep taking your potassium and magnesium at home to help keep these levels up. Dr. Robledo or Dr. Mccloud can check these levels next week to be sure you are doing well. We also talked about how to keep your protein intake up a bit. This will help you keep your muscle mass up and keep you strong. Eggs, smooth peanut butter, yogurt (especially [place] yogurt), meat are all good way to get more protein intake. For your diverticulitis, you are doing very well! Your pain resolved almost immediately with antibiotics. You have not had any fevers during your entire stay, and your white count (a blood test that looks for signs of infection) is normal. This is all good news. We will put you on 3 more days of antibiotics (Augmentin). Take the first dose tonight, then two times per day for 3 days, then done. Please see the handouts provided for more information on your diverticulitis. You should see Dr. Robledo in the clinic. You will likely need a colonoscopy in about 2 months if you haven't had one previously. Finally, your INR (blood work that monitors your warfarin dosing) was a bit high. This wasn't a huge deal in the hospital, and it went down on its own as we held your warfarin for 2 days; however, you should see Dr. Robledo for an INR check this week or early next week. Pending Studies at Discharge: No Stand-Alone Forms: [facility] [employer], Smoking Cessation Medications and DC Order Prescriptions: New amoxicillin-pot clavulanate [Augmentin] 875-125 mg tablet 1 tab PO BID Qty: 7 RF: 0 Continued furosemide [Lasix] 40 mg Tablet 40 mg PO BID Qty: 0 RF: 0 aspirin [Aspirin Low Dose] 81 mg Tablet,Delayed Release (Dr/Ec) 81 mg PO QAM Qty: 0 RF: 0 levothyroxine 75 mcg Tablet 75 mcg PO QAM Qty: 0 RF: 0 Centrum Silver Women 8 mg iron-400 mcg-300 mcg Tablet 1 tab PO DAILY Qty: 0 RF: 0 warfarin 3 mg Tablet 3 mg PO 3XWK Qty: 0 RF: 0 metoprolol tartrate 100 mg Tablet 100 mg PO BID Qty: 0 RF: 0 lorazepam [Ativan] 0.5 mg Tablet 0.5 mg PO BID PRN (Reason: Anxiety) Qty: 0 RF: 0 (DME) Oxygen Home Liters Per Minute 2 liters NA HS Qty: 0 RF: 0 amlodipine [Norvasc] 5 mg Tablet 5 mg PO QAM Qty: 0 RF: 0 warfarin 4 mg Tablet 4 mg PO 4XWK RF: 0 dorzolamide-timolol 22.3-6.8 mg/mL drops 1 drp ophthalmic (eye) DAILY RF: 0 losartan 25 mg Tablet 50 mg PO BID RF: 0 calcium phosphate-vitamin D3 [Caltrate Gummy Bites] 250-400 mg-unit Tablet,Chewable 1 tab PO DAILY RF: 0 Discontinued spironolactone [Aldactone] 25 mg Tablet 12.5 mg PO QAM Qty: 0 RF: 0 Discharge Orders: Discharge Order (Routine); Ordered 08/16/19 Ordered By: Roly Clifton/Other Patient Handouts: DVT, Anxiety Body Response, Anatomy Inner Ear, Stress Relief Relaxation, Dizziness Vertigo Inner Ear, Diverticulitis Dc, Hypertension Dc, Hyponatremia Dc, Heart at Risk, Foods Heart Healthy, ED Stress React Admission Data Admit Date/Time: 08/12/19 23:01 Attending Provider: Roly Swartz Admit Provider: Quoc Banda Primary Care Provider: Juice Robledo Other Providers: Rloy Swartz ; Quoc Banda Other Interventions: Discharge Summary Assessment (RN) Last Done: 08/16/19 11:56 DC Date/Time DO NOT enter until pt leaves facility: 08/16/19 16:14 Coding Level of Care Code D/C Day Management >30 mins Diagnoses Acute diverticulitis K57.92 Hyponatremia E87.1 Acute on chronic diastolic (congestive) heart failure I50.33 Elevated troponin R79.89 H/O mechanical aortic valve replacement Z95.2 HTN (hypertension) I10 Atrial fibrillation I48.91 Anxiety F41.9 Adult hypothyroidism E03.9
== END 2019-08-16 16:14 | disposition home or self-care (01) | DRG 391 ==
LOC: ED 20:09 → 2S 23:01 → SUATTDRO 23:01 → 2S 23:30 → 3W 08-14 18:22

== ENCOUNTER 2020-03-20 23:51 | Inpatient (IN) ==
[2020-03-21] MEDS ORDERED: SODIUM CHLORIDE 0.9% 1000ML 500 ML IV ONE (00:15)
[2020-03-21] MEDS ORDERED: HYDROmorphone INJ 0.5 MG/0.5 ML SYR IV PRN (00:15)
[2020-03-21] MEDS ORDERED: ONDANSETRON INJ 2 MG/ML 2 ML VIAL IV STA (00:15)
[2020-03-21 00:23] LABS: Basophils # (auto) 0.01 K/uL (0-0.2); Basophils % (auto) 0.1 %; Hematocrit (blood only) 32.9 % (37-47); Hemoglobin 11.7 g/dL (12.0-16.0); Immature Granulocytes # (auto) 0.06 K/uL (0.00-0.02); Immature Granulocytes % (auto) 0.6 %; Lymphocytes # (auto) 0.61 K/uL (1.2-3.4); Lymphocytes % (auto) 6.5 %; Mean Corpuscular Hemoglobin 32.7 pg (25-34); Mean Corpuscular Hgb Conc 35.6 g/dL (32-36); Mean Corpuscular Volume 91.9 fL (80-100); Mean Platelet Volume 9.4 fL (7.4-10.4); Monocytes # (auto) 0.77 K/uL (0.11-0.59); Monocytes % (auto) 8.2 %; Neutrophils # (auto) 7.95 K/uL (1.4-6.5); Neutrophils % (auto) 84.6 %; Platelet Count 142 K/uL (130-400); RDW Coefficient of Variation 15.6 % (11.5-14.5); RDW Standard Deviation 51.5 fL (36.4-46.3); Red Blood Count 3.58 M/uL (4.2-5.4)
[2020-03-21 00:33] LABS: INR 3.4 (0.9-1.1); Prothrombin Time 33.9 Seconds (9.0-12.0)
--- NOTE | 2020-03-21 00:38 | Emergency Department Note ---
History of Present Illness General Chief complaint: Weakness Stated complaint: WEAKNESS/NAUSEA Time Seen by Provider: 03/20/20 23:52 Source: patient, EMS, RN notes reviewed and old records reviewed Mode of arrival: EMS Limitations: no limitations History of Present Illness Provider complaint: Fall, lay on floor for 4 hours Onset (ago): hour(s) 4 Location: back, lower extremity and right Radiation: back Severity: moderate Pain Consistency: + intermittent Maximum Pain Intensity: 7 Current Pain Intensity: 7 Quality: + aching Relieved By: + immobilization Exacerbated By: + movement Associated symptoms: + weakness and + other (severe bruising right thigh ); no chest pain, no cough, no diaphoresis, no fever/chills and no headaches Treatments prior to arrival: none This is an 89-year-old female who presents emergency department complaining of a fall that happened approximately 4 hours prior to arrival. The patient then lay on the floor for 4 hours until she was able to crawl over to a telephone. In addition to the fall the patient had a another fall approximately 2 weeks ago that she was not evaluated for. She has severe bruising to the right leg from that fall. Home Medications Home Medications Medication Instructions Recorded Confirmed Type furosemide [Lasix] 40 mg PO BID #0 tab 01/17/12 03/21/20 History Centrum Silver Women 1 tab PO DAILY #0 07/31/13 03/21/20 History aspirin [Aspirin Low Dose] 81 mg PO QAM #0 07/31/13 03/21/20 History levothyroxine 75 mcg PO QAM #0 tab 07/31/13 03/21/20 History warfarin 3 mg PO 3XWK #0 tab 07/31/13 03/21/20 History Oxygen Home #0 09/10/13 02/13/19 History lorazepam [Ativan] 0.5 mg PO BID PRN #0 tab 09/10/13 03/21/20 History metoprolol tartrate 100 mg PO BID #0 tab 09/10/13 03/21/20 History amlodipine [Norvasc] 5 mg PO QAM #0 tab 01/16/18 03/21/20 History warfarin 4 mg PO 4XWK 11/29/18 03/21/20 History calcium phosphate-vitamin D3 1 tab PO DAILY 08/12/19 03/21/20 History [Caltrate Gummy Bites] dorzolamide-timolol 1 drp OPHTHALMIC (EYE) AMPM 08/12/19 03/21/20 History losartan 50 mg PO AMPM 08/12/19 03/21/20 History Slow-Mag 1 tab PO TIDM 03/21/20 03/21/20 History cyclosporine [Restasis] 1 drp OPB BID 03/21/20 03/21/20 History potassium chloride 2 tab PO TIDM 03/21/20 03/21/20 History Allergies Allergy/AdvReac Type Severity Reaction Status Date / Time Sulfa (Sulfonamide Allergy Intermediate HIVES Verified 03/21/20 02:04 Antibiotics) Past Med/Surg History Medical History (Updated 03/24/20 @ 04:33 by Brenton Estevez MD) Adult hypothyroidism Atrial fibrillation CHF (congestive heart failure) Choledocholithiasis Chronic hyponatremia HTN (hypertension) Pacemaker Pulmonary hypertension severe Thickened endometrium Thyroid disease Surgical History Aortic valve replaced H/O mechanical aortic valve replacement History of colonoscopy 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 Status post Mohs surgery Family History Brother Cancer Sister Cancer Social History Smoking Status: Never smoker Tobacco Type: Cigarettes Second Hand Exposure: No; Hx Alcohol Use: No Hx Substance Use: No Preferred Language: [place] Communication Ability: Effective Lab Courier Required: No Beliefs That Will Affect Care: None marital status: / Current Living Situation: Alone How many Children do You have: 2 Other Information That Helps Us Care for You: No Feels Safe at Home: Yes Safety Concerns: Feels Safe At This Time Review of Systems A total of 10 systems reviewed and were otherwise negative Physical Exam Vital Signs Vital Signs - 24 hr 03/21/20 00:10 03/21/20 00:27 03/21/20 00:30 Temperature 37.0 C Temperature Source Oral Pulse Rate 67 62 Pulse Rate from SpO2 Sensor 59 L Pulse Rhythm Regular Pulse Strength Normal Respiratory Rate 20 21 Respiratory Effort / Characteristics Non-Labored Spontaneous Respiratory Depth Normal Respiratory Pattern Regular Blood Pressure 177/70 H 170/66 H Blood Pressure Mean 105 91 Blood Pressure Position Lying Pulse Oximetry 92 92 94 Oxygen Delivery Method Nasal Cannula Nasal Cannula Nasal Cannula Oxygen Flow Rate 2 2 3 Sepsis Recent Fever Within 48 Hours No Sepsis New/Unexplained Change in Mental Status No Sepsis Action Taken by Nursing No Action Required VITAL SIGNS - Vital signs and nursing notes were reviewed. GENERAL - 89-year-old female appearing stated age who is in moderate distress. Communicates well with provider and answers questions appropriately. SKIN - Without rashes. HEAD - NC/AT. EYES - PERRL with EOMI bilaterally. Sclera anicteric. Palpebral conjunctiva pink and moist with no injection noted. EARS - No deformities of external structures noted on gross examination bilaterally. No pain elicited with palpation of the tragus bilaterally. External auditory canals without discharge or otorrhea. Tympanic membranes pearly no without retraction or bulging. No fluid or purulent material visualized behind the TM. Handle of malleus, umbo, cone of light, pars tensa/flaccid all easily visualized. NOSE - Midline and without cyanosis. No epistaxis or purulent drainage noted. Septum midline without deviation or septal hematoma noted. MOUTH/OROPHARYNX - Without perioral cyanosis. Buccal mucosa pink and moist and without leukoplakia. Tongue midline with equal elevation of palate bilaterally. No tonsillar hypertrophy, erythema, or exudates noted. dentition noted. NECK - Neck with FROM. Supple to palpation. lymphadenopathy noted. No nuchal rigidity. SPINE: Tender to upper spine as well as lower back LUNGS - Chest wall symmetric without accessory muscle use, intercostals retractions, or central cyanosis. Normal vesicular breath sounds CTA B/L. No wheezes, rales, or rhonchi appreciated. CARDIAC - RRR with S1/S2. No murmur, rubs, or gallops appreciated. ABDOMEN - Abdominal contour without pulsations or visible masses. BS normoactive all four quadrants. No tenderness, palpable masses, h epatosplenomegaly, or ascites noted. EXTREMITIES - Large amount of edema to left leg (appears circumferentially bruised left thigh and calf) NEUROLOGIC - Cranial nerves II through XII grossly intact. Sensory intact to light touch throughout. Patellar reflexes +2/4. PSYCH - A&Ox3 and cooperates fully with examiner. Pt is very pleasant and interacts well with examiner. Course Administered Medications Acetaminophen (Acetaminophen 325 Mg Tab) 650 mg PO Q4H PRN PRN Reason: pain/fever Stop: 04/20/20 04:13 Last Admin: 03/22/20 14:56 Dose: 650 mg Documented by: [id number] Admin: 03/22/20 08:24 Dose: 650 mg Documented by: [id number] Amlodipine Besylate (Amlodipine Besylate 5 Mg Tab) [facility] [place]: 04/20/20 08:59 Last Admin: 03/21/20 08:24 Dose: 5 mg Documented by: [id number] Aspirin (Aspirin 81 Mg Ectab) [facility] [place] Stop: 04/20/20 08:59 Last Admin: 03/21/20 08:25 Dose: 81 mg Documented by: [id number] Dorzolamide/Timolol (Dorzolamide/Timolol 22.3/6.8mg/Ml 10 Ml Btl) 1 drops OP BID [facility] Stop: 04/20/20 08:59 Last Admin: 03/23/20 20:06 Dose: 1 drops Documented by: [id number] Admin: 03/23/20 08:02 Dose: 1 drops Documented by: [id number] Admin: 03/22/20 20:25 Dose: 1 drops Documented by: [id number] Admin: 03/22/20 08:19 Dose: 1 drops Documented by: [id number] Admin: 03/21/20 20:55 Dose: 1 drops Documented by: [id number] Admin: 03/21/20 08:26 Dose: 1 drops Documented by: [id number] Heparin Sodium/Dextrose (Heparin Sodium/Dextrose) 25,000 units in 500 mls @ 16 mls/hr IV .Q24H [facility]; Protocol Stop: 04/21/20 13:44 Last Titration: 03/23/20 18:57 Dose: 800 units/hr, 16 mls/hr Documented by: [id number] Cosigned by: [id number] Titration: 03/23/20 15:35 Dose: 800 units/hr, 16 mls/hr Documented by: [id number] Cosigned by: [id number] Admin: 03/23/20 13:15 Dose: 800 units/hr, 16 mls/hr Documented by: [id number] Cosigned by: [id number] Titration: 03/23/20 13:15 Dose: 800 units/hr, 16 mls/hr Documented by: [id number] Cosigned by: [id number] Titration: 03/23/20 08:29 Dose: 800 units/hr, 16 mls/hr Documented by: [id number] Cosigned by: [id number] Titration: 03/22/20 21:32 Dose: 800 units/hr, 16 mls/hr Documented by: [id number] Cosigned by: [id number] Titration: 03/22/20 19:09 Dose: 800 units/hr, 16 mls/hr Documented by: [id number] Cosigned by: [id number] Admin: 03/22/20 14:28 Dose: 800 units/hr, 16 mls/hr Documented by: [id number] Cosigned by: [id number] Furosemide 40 mg/ Syringe 4 mls @ 4 mls/min IV [id number] ENDER Stop: 04/22/20 16:59 Last Admin: 03/23/20 17:38 Dose: 4 mls/min Documented by: [id number] Levothyroxine Sodium (Levothyroxine Sodium 75 Mcg Tablet) 75 mcg PO DAILYBB [facility] Stop: 04/20/20 06:29 Last Admin: 03/23/20 05:52 Dose: 75 mcg Documented by: [id number] Admin: 03/22/20 06:26 Dose: 75 mcg Documented by: [id number] Admin: 03/21/20 05:58 Dose: 75 mcg Documented by: [id number] Metoprolol Tartrate (Metoprolol Tartrate 100 Mg Tab) 100 mg PO BID ENDER Stop: 04/20/20 08:59 Last Admin: 03/23/20 20:06 Dose: 100 mg Documented by: [id number] Admin: 03/23/20 08:01 Dose: 100 mg Documented by: [id number] Admin: 03/22/20 20:24 Dose: 100 mg Documented by: [id number] Admin: 03/22/20 08:18 Dose: 100 mg Documented by: [id number] Admin: 03/21/20 20:57 Dose: Not Given Documented by: [id number] Admin: 03/21/20 08:24 Dose: 100 mg Documented by: [id number] Multivitamins/Minerals (Calcium 600mg + Vit D 400 Iu Tab) 1 tab PO DAILY ENDER Stop: 04/20/20 08:59 Last Admin: 03/23/20 08:01 Dose: 1 tab Documented by: [id number] Admin: 03/22/20 08:20 Dose: 1 tab Documented by: [id number] Admin: 03/21/20 09:00 Dose: Not Given Documented by: [id number] Pantoprazole Sodium (Pantoprazole 40 Mg Tab) 40 mg PO QAM ENDER Stop: 04/20/20 16:59 Last Admin: 03/23/20 08:02 Dose: 40 mg Documented by: [id number] Admin: 03/22/20 08:20 Dose: 40 mg Documented by: [id number] Admin: 03/21/20 19:28 Dose: 40 mg Documented by: [id number] Polyethylene Glycol (Polyethylene (Miralax) 17 Gm Pack) 17 gm PO DAILY ENDER Stop: 04/22/20 19:14 Last Admin: 03/23/20 20:04 Dose: 17 gm Documented by: [id number] Warfarin Sodium (Warfarin Sod 4 Mg Tab) 4 mg PO DAILY@1600 [facility] Stop: 04/22/20 15:59 Last Admin: 03/23/20 15:56 Dose: 4 mg Documented by: [id number] Discontinued Medications Glucagon (Glucagon For Inj 1 Mg Vial) Confirm Administered Dose 1 mg .ROUTE .STK-MED ONE Stop: 03/21/20 18:14 Last Admin: 03/21/20 19:13 Dose: Not Given Documented by: [id number] Heparin Sodium/Dextrose (Heparin Iv Low Dose *No* Bolus) 1 ea IV Q15M [facility]; Protocol Stop: 03/22/20 13:37 Last Admin: 03/22/20 19:11 Dose: Not Given Documented by: [id number] Admin: 03/22/20 19:11 Dose: Not Given Documented by: [id number] Admin: 03/22/20 19:11 Dose: Not Given Documented by: [id number] Hydromorphone HCl (Hydromorphone Inj 0.5 Mg/0.5 Ml Syr) 0.25 mg IV Q15M PRN PRN Reason: Pain Stop: 04/04/20 00:14 Last Admin: 03/21/20 00:41 Dose: 0.25 mg Documented by: [id number] Sodium Chloride (Nss 1000ml) 500 mls @ 999 mls/hr IV .Q31M ONE Stop: 03/21/20 00:45 Last Infusion: 03/21/20 01:36 Dose: 0 mls/hr Documented by: [id number] Admin: 03/21/20 00:44 Dose: 999 mls/hr Documented by: [id number] Magnesium Sulfate/Dextrose (Magnesium Sulfate / D5w) 1 gm in 100 mls @ 50 mls/hr IV Q2H [facility] Stop: 03/21/20 13:29 Last Infusion: 03/21/20 14:23 Dose: 0 mls/hr Documented by: [id number] Admin: 03/21/20 11:32 Dose: 50 mls/hr Documented by: [id number] Infusion: 03/21/20 11:32 Dose: 0 mls/hr Documented by: [id number] Admin: 03/21/20 09:32 Dose: 50 mls/hr Documented by: [id number] Potassium Chloride/Sodium Chloride (Normal Saline W/20 Meq Kcl) 20 meq in 1,000 mls @ 80 mls/hr IV .[id number] ENDER Stop: 04/20/20 09:14 Last Infusion: 03/22/20 01:24 Dose: 0 mls/hr Documented by: [id number] Infusion: 03/21/20 17:43 Dose: 80 mls/hr Documented by: [id number] Infusion: 03/21/20 10:10 Dose: 0 mls/hr Documented by: [id number] Admin: 03/21/20 10:09 Dose: 80 mls/hr Documented by: [id number] Phytonadione 5 mg/ Sodium (Chloride) 50.5 mls @ 101 mls/hr IV ONE ONE Stop: 03/21/20 10:14 Last Infusion: 03/21/20 10:36 Dose: 0 mls/hr Documented by: [id number] Admin: 03/21/20 09:59 Dose: 101 mls/hr Documented by: [id number] Prothrombin Complex Concent ( (Human) 2,000 units/ Syringe) 80 mls @ 10 mls/min IV TODAY@0945 [facility]; Protocol Stop: 03/21/20 10:00 Last Admin: 03/21/20 09:52 Dose: 10 mls/min Documented by: [id number] Furosemide 40 mg/ Syringe 5 mls @ 4 mls/min IV [id number] ENDER Stop: 03/22/20 19:00 Last Admin: 03/22/20 12:12 Dose: 4 mls/min Documented by: [id number] Furosemide 40 mg/ Syringe 4 mls @ 4 mls/min IV 1700 ONE Stop: 03/22/20 17:01 Last Admin: 03/22/20 17:18 Dose: 4 mls/min Documented by: [id number] Magnesium Sulfate/Dextrose (Magnesium Sulfate / D5w) 1 gm in 100 mls @ 50 mls/hr IV Q2H [facility] Stop: 03/23/20 13:59 Last Infusion: 03/23/20 13:50 Dose: 0 mls/hr Documented by: [id number] Admin: 03/23/20 11:49 Dose: 50 mls/hr Documented by: [id number] Infusion: 03/23/20 11:49 Dose: 50 mls/hr Documented by: [id number] Admin: 03/23/20 09:57 Dose: 50 mls/hr Documented by: [id number] Furosemide 40 mg/ Syringe 4 mls @ 4 mls/min IV ONE ONE Stop: 03/23/20 09:46 Last Admin: 03/23/20 09:57 Dose: 4 mls/min Documented by: [id number] Indomethacin (Indomethacin 50 Mg Supp) Confirm Administered Dose 100 mg UT .STK- MED ONE Stop: 03/21/20 14:56 Last Admin: 03/21/20 16:12 Dose: Not Given Documented by: [id number] Ioversol (Ioversol 100ml) 100 ml IV ONCE ONE Stop: 03/21/20 00:48 Last Admin: 03/21/20 00:47 Dose: 92 ml Documented by: [id number] Ioversol (Ioversol 50ml) Confirm Administered Dose 1 ml IV .STK-MED ONE Stop: 03/21/20 15:53 Last Admin: 03/21/20 17:39 Dose: Not Given Documented by: [id number] Losartan Potassium (Losartan Potassium 50 Mg Tab) 50 mg PO BID ENDER Stop: 04/20/20 08:59 Last Admin: 03/23/20 08:00 Dose: 50 mg Documented by: [id number] Admin: 03/22/20 20:25 Dose: 50 mg Documented by: [id number] Admin: 03/22/20 08:18 Dose: 50 mg Documented by: [id number] Admin: 03/21/20 20:57 Dose: 50 mg Documented by: [id number] Admin: 03/21/20 08:25 Dose: 50 mg Documented by: [id number] Metoclopramide HCl (Metoclopramide Hcl Inj 5 Mg/Ml 2 Ml Vial) 10 mg IV NOW STA Stop: 03/21/20 02:25 Last Admin: 03/21/20 02:38 Dose: 10 mg Documented by: [id number] Ondansetron HCl (Ondansetron Inj 2 Mg/Ml 2 Ml Vial) 4 mg IV NOW STA Stop: 03/21/20 00:16 Last Admin: 03/21/20 00:41 Dose: 4 mg Documented by: [id number] Potassium Chloride (Potassium Chloride 20 Meq Tabcr) 40 meq PO NOW STA Stop: 03/21/20 01:49 Last Admin: 03/21/20 02:35 Dose: 40 meq Documented by: [id number] Potassium Chloride (Potassium Chloride 20 Meq Tabcr) 40 meq PO NOW STA Stop: 03/21/20 05:02 Last Admin: 03/21/20 05:44 Dose: 40 meq Documented by: [id number] Potassium Chloride (Potassium Chloride 20 Meq Tabcr) 40 meq PO NOW STA Stop: 03/23/20 09:18 Last Admin: 03/23/20 10:04 Dose: 40 meq Documented by: [id number] Potassium Chloride (Potassium Chloride 20 Meq Tabcr) 40 meq PO ONE ONE Stop: 03/23/20 17:01 Last Admin: 03/23/20 17:39 Dose: 40 meq Documented by: [id number] Medical Decision Making Differential Diagnosis Infection, dehydration, metabolic abnormality, hypo/hyperglycemia, electrolyte disturbance, anemia, hypoxia, cardiac sources, intracerebral event, toxicologic, neurologic, as well as other pathologies. Medical Records Attestation: I reviewed the patient's medical records. Home Medications Current Medication List: was personally reviewed by me Laboratory Data Attestation: I reviewed the patient's lab results. Result diagrams: 03/22/20 07:20 03/23/20 11:27 Lab Results 03/21/20 03/21/20 03/21/20 Range/Units 00:10 00:10 00:10 WBC 9.40 (4.8-10.8) K/uL RBC 3.58 L (4.2-5.4) M/uL Hgb 11.7 L (12.0-16.0) g/dL Hct 32.9 L (37-47) % MCV 91.9 (80-100) fL MCH 32.7 (25-34) pg MCHC 35.6 (32-36) g/dL RDW Std Deviation 51.5 H (36.4-46.3) fL RDW Coeff of Sia 15.6 H (11.5-14.5) % Plt Count 142 (130-400) K/uL MPV 9.4 (7.4-10.4) fL Immature Gran % (Auto) 0.6 % Neut % (Auto) 84.6 % Lymph % (Auto) 6.5 % [place] % (Auto) 8.2 % Eos % (Auto) 0.0 % Baso % (Auto) 0.1 % Neut # (Auto) 7.95 H (1.4-6.5) K/uL Lymph # (Auto) 0.61 L (1.2-3.4) K/uL [place] # (Auto) 0.77 H (0.11-0.59) K/uL Eos # (Auto) 0.00 (0-0.5) K/uL Baso # (Auto) 0.01 (0-0.2) K/uL Immature Gran # (Auto) 0.06 H (0.00-0.02) K/uL PT 33.9 H (9.0-12.0) Seconds INR 3.4 H (0.9-1.1) Sodium 120 L (136-145) mmol/L Potassium 3.2 L (3.5-5.1) mmol/L Chloride 86 L (98-107) mmol/L Carbon Dioxide 25 (21-32) mmol/L Anion Gap 9.0 (3-11) BUN 11 (7-18) mg/dl Creatinine 0.69 (0.6-1.2) mg/dl Est Cr Clr Drug Dosing 63.7 ml/min Est GFR ( Amer) 90.1 Est GFR (Non-Af Amer) 77.7 BUN/Creatinine Ratio 15.7 (10-20) Glucose 157 H (70-99) mg/dl Calcium 8.6 (8.5-10.1) mg/dl Total Bilirubin 4.7 H (0.2-1) mg/dl AST 51 H (15-37) U/L ALT 35 (12-78) U/L Alkaline Phosphatase 144 H (45-117) U/L Total Creatine Kinase 161 (26-192) U/L CK-MB (CK-2) 3.8 H (0.5-3.6) ng/ml CK/CKMB % Calc 2.4 (0-3.0) Troponin I 0.031 (0-0.045) ng/ml Total Protein 7.6 (6.4-8.2) gm/dl Albumin 3.2 L (3.4-5.0) gm/dl Globulin 4.4 H (2.5-4.0) gm/dl Albumin/Globulin Ratio 0.7 L (0.9-2) TSH 2.110 (0.300-4.500) uIu/ml Random Cortisol mcg/dl Urine Color Urine Appearance (Clear) Urine pH (4.5-7.5) Ur Specific [place] (1.000-1.030) Urine Protein (Negative) Urine Glucose (UA) (Negative) Urine Ketones (Negative) Urine Blood (Negative) Urine Nitrite (Negative) Urine Bilirubin (Negative) Urine Urobilinogen (Negative) Ur Leukocyte Esterase (Negative) Urine WBC (Auto) (0-5) /hpf Urine RBC (Auto) (0-4) /hpf U Hyaline Cast (Auto) (0-5) /lpf U Epithel Cells (Auto) (0-5) /lpf Urine Bacteria (Auto) (Negative) 03/21/20 03/21/20 Range/Units 00:10 00:10 WBC (4.8-10.8) K/uL RBC (4.2-5.4) M/uL Hgb (12.0-16.0) g/dL Hct (37-47) % MCV (80-100) fL MCH (25-34) pg MCHC (32-36) g/dL RDW Std Deviation (36.4-46.3) fL RDW Coeff of Sia (11.5-14.5) % Plt Count (130-400) K/uL MPV (7.4-10.4) fL Immature Gran % (Auto) % Neut % (Auto) % Lymph % (Auto) % [place] % (Auto) % Eos % (Auto) % Baso % (Auto) % Neut # (Auto) (1.4-6.5) K/uL Lymph # (Auto) (1.2-3.4) K/uL [place] # (Auto) (0.11-0.59) K/uL Eos # (Auto) (0-0.5) K/uL Baso # (Auto) (0-0.2) K/uL Immature Gran # (Auto) (0.00-0.02) K/uL PT (9.0-12.0) Seconds INR (0.9-1.1) Sodium (136-145) mmol/L Potassium (3.5-5.1) mmol/L Chloride (98-107) mmol/L Carbon Dioxide (21-32) mmol/L Anion Gap (3-11) BUN (7-18) mg/dl Creatinine (0.6-1.2) mg/dl Est Cr Clr Drug Dosing ml/min Est GFR ( Amer) Est GFR (Non-Af Amer) BUN/Creatinine Ratio (10-20) Glucose (70-99) mg/dl Calcium (8.5-10.1) mg/dl Total Bilirubin (0.2-1) mg/dl AST (15-37) U/L ALT (12-78) U/L Alkaline Phosphatase (45-117) U/L Total Creatine Kinase (26-192) U/L CK-MB (CK-2) (0.5-3.6) ng/ml CK/CKMB % Calc (0-3.0) Troponin I (0-0.045) ng/ml Total Protein (6.4-8.2) gm/dl Albumin (3.4-5.0) gm/dl Globulin (2.5-4.0) gm/dl Albumin/Globulin Ratio (0.9-2) TSH (0.300-4.500) uIu/ml Random Cortisol 54.28 mcg/dl Urine Color Yellow Urine Appearance Cloudy A (Clear) Urine pH 7.5 (4.5-7.5) Ur Specific [place] 1.009 (1.000-1.030) Urine Protein Negative (Negative) Urine Glucose (UA) Negative (Negative) Urine Ketones Negative (Negative) Urine Blood Negative (Negative) Urine Nitrite Negative (Negative) Urine Bilirubin Negative (Negative) Urine Urobilinogen Negative (Negative) Ur Leukocyte Esterase Trace H (Negative) Urine WBC (Auto) 1-5 (0-5) /hpf Urine RBC (Auto) 0-4 (0-4) /hpf U Hyaline Cast (Auto) 0 (0-5) /lpf U Epithel Cells (Auto) 10-20 H (0-5) /lpf Urine Bacteria (Auto) Negative (Negative) Imaging Data Radiologist's Impression: CT of the C-spine: No acute fracture or malalignment. Degenerative changes. Aneurysmal ectatic vessels. Heterogeneous thyroid gland. CT of the head: No intracranial hemorrhage or skull fracture. Involutional changes with small vessel disease. Cataract surgery. CT L-spine: Spinal compression deformities of L3 and L4 probably chronic. Degenerative changes CT abdomen pelvis with contrast: No solid organ injury or hemoperitoneum. Small hiatal hernia thickening of distal esophagus. Heterogeneous liver. Suspected cholelithiasis. Mild nonspecific karen-cholecystic edema. Distended bladder. Presacral edema. Colonic diverticula. Trace amounts of fluid in the peritoneal cavity. Anasarca. Thoracic findings as reported. CT T-spine: Subtle fracture through an inferior aspect of the T10 vertebral body extending to the T10-T11 disc space. Degenerative changes. CT chest with contrast: Subtle fracture through the inferior aspect of the T10 vertebral body extending to the T10-11 disc space. Cardiomegaly pacemaker and surgical changes. 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 Bovine arch. Trace pleural fluid thickening bilaterally. Interstitial thickening in the left lower lung field. ECG Data Attestation: I personally reviewed and interpreted this ECG as follows: Indication: + weakness Rate (beats per minute): 63 Rhythm: + other (paced rythym ) ECG Intervals/blocks: + Normal QT-c (540) ECG [place]: + Normal ECG ST segments: no ST depression and no ST elevation Comparison ECG Date: from (08/12/2019) Change: no significant change MDM Narrative Patient was seen and evaluated as above in room C11. Review was performed of nursing notes and vital signs. I did review pertinent previous visits and patient history. After obtaining a thorough history and physical examination the above work up was performed. This patient presents during a period of high-volume and high acuity for multiple falls. I am concerned that the patient is going to fall again as she laid on her floor for approximately 4 hours. This reason we did discuss the case with the hospitalist service who did agree to admit the patient. While in the department, I personally reevaluated the patient several times and each time the patient was found to be resting comfortably. The patient was edu cated upon management, educated upon todays findings/results, educated upon importance of follow up from today's visit, educated upon symptoms in which to return, had questions answered prior to discharge, verbalized understanding, and was discharged home in good condition. An order was placed for continuous cardiac monitoring. The monitor shows a rate of 60 with Normal SInus rhythm. The patient was evaluated during the global COVID-19 pandemic, and that diagnosis was suspected/considered upon their initial presentation. Their evaluation, treatment and testing was consistent with current guidelines for patients who present with complaints or symptoms that may be related to COVID- 19. Impression & Plan Fall, Hyponatremia, Elevated troponin Discharge Plan Visit Data Chief Complaint: Weakness Stated Complaint: WEAKNESS/NAUSEA ED Provider: Brenton Estevez Discharge Problem: Fall, Hyponatremia, Elevated troponin Patient Disposition: Admitted As Inpatient Discharge Instructions Interventions: ED Discharge Assessment Last Done: 03/21/20 03:09 Discharge Problem: Fall Qualifiers: Encounter type: initial encounter Qualified Code(s): W19.XXXA - Unspecified fall, initial encounter
[2020-03-21 00:42] LABS: Albumin Level 3.2 gm/dl (3.4-5.0); BUN Creatinine Ratio 15.7 (10-20); Calcium 8.6 mg/dl (8.5-10.1); Creatinine Clr Calc Pharmacy 63.7 ml/min; Est GFR (African American) 90.1; Est GFR (Non-African American) 77.7; Potassium 3.2 mmol/L (3.5-5.1)
[2020-03-21 00:44] LABS: Appearance Urine Cloudy (Clear); Bacteria Urine Automated Negative (Negative); Bilirubin Urine Negative (Negative); Blood Urine Negative (Negative); Cast Urine Automated 0 /lpf (0-5); Color Urine Yellow; Glucose Urine UA Negative (Negative); Ketones Urine Negative (Negative); Leukocyte Esterase Urine Trace (Negative); Nitrite Urine Negative (Negative); Protein Urine Negative (Negative); RBC Urine Automated 0-4 /hpf (0-4); Specific Gravity Urine 1.009 (1.000-1.030); Urobilinogen Urine Negative (Negative); pH Urine 7.5 (4.5-7.5)
[2020-03-21] MEDS ORDERED: IOVERSOL 100ml IV ONE (00:47)
[2020-03-21 00:53] LABS: Albumin Globulin Ratio 0.7 (0.9-2); Bilirubin,Total 4.7 mg/dl (0.2-1); Creatine Kinase MB 3.8 ng/ml (0.5-3.6); Globulin 4.4 gm/dl (2.5-4.0); Thyroid Stimulating Hormone 2.11 uIu/ml (0.300-4.500); Total Protein 7.6 gm/dl (6.4-8.2); Troponin I 0.031 ng/ml (0-0.045)
[2020-03-21] MEDS ORDERED: POTASSIUM CHLORIDE 20 MEQ TABCR PO STA ×2 (01:48→05:01)
[2020-03-21] MEDS ORDERED: METOCLOPRAMIDE HCL INJ 5 MG/ML 2 ML VIAL IV STA (02:24)
--- NOTE | 2020-03-21 02:46 | History & Physical Report ---
Date of Service March 21, 2020 Assessment & Plan (1) Fall: s/p mechanical fall, no head trauma or LOC. Down time appx 4 hours. Imaging with T10 fracture otherwise unremarkable -Fall precautions -PT/OT -Pain control Present on Admission?: Yes (2) Hyponatremia: Ya=295 -Check urine and serum osm, urine Na -Gentle IVF -Repeat chemistry in AM Present on Admission?: Yes (3) Atrial fibrillation: Stable, rate controlled -Continue Metoprolol -Continue Coumadin. -Check INR daily - goal INR 2.5 - 3.5 for mechanical AV Present on Admission?: Yes (4) H/O mechanical aortic valve replacement: Chronic. Stable. No evidence of failure -Continue Coumadin, monitor INR, goal 2.5-3.5 Present on Admission?: Yes (5) Hypokalemia: Patient vomited after receiving K in ER -KCL 40mEq x 1 -Repeat labs Present on Admission?: Yes (6) HTN (hypertension): Blood pressure elevated -Continue home medications, Amlodipine, Metoprolol, Losartan -Continue to monitor Present on Admission?: Yes (7) Adult hypothyroidism: Chronic. Stable -Continue Synthroid Present on Admission?: Yes (8) Anxiety: Chronic -Continue Lorazepam 0.5mg po BID PRN Present on Admission?: Yes History of Present Illness Chief Complaint: Fall Primary Care Provider: Juice Robledo MD Clarisse Mo is an 89yo C female presenting to the ER after a mechanical fall at home. Patient had a mechanical fall in her home approximately two weeks ago, she thinks she tripped on a rug. She injured her right knee and has extensive bruising and tenderness. She reports that her leg has felt unstable on occasion since her fall two weeks ago. Patient was at home this evening and went into the kitchen to prepare dinner for herself. She feels that her right knee buckled underneath her and gave out. She tried to hold herself up on the counter but eventually slid down on her bottom onto the kitchen floor. She was unable to get up due to weakness and was down for 4 hours before using her cane to get her phone and call her niece. Patient denies chest pain/palpitations/SOB/cough/wheeze preceding or following the fall. She denies head trauma or loss of consciousness. She has been having occasional dizziness as well as two days of nausea and frequent, soft bowel movements. She noted a small amount of bright red blood on the toilet paper today which she blamed on her hemorrhoids. She has some back pain from being on the ground x 3 hours, otherwise, no complaints at this time. On arrival to the ER she was found to be hypertensive at 177/70, NAD ER Course: Dilaudid 0.25mg IV, Zofran 4mg IV, Reglan 10mg IV, KCl 40mEq PO and NSS x 500 mL Allergies Allergy/AdvReac Type Severity Reaction Status Date / Time Sulfa (Sulfonamide Allergy Intermediate HIVES Verified 03/21/20 02:04 Antibiotics) Home Medications Home Medications Medication Instructions Recorded Confirmed Type furosemide [Lasix] 40 mg PO BID #0 tab 01/17/12 03/21/20 History Centrum Silver Women 1 tab PO DAILY #0 07/31/13 03/21/20 History aspirin [Aspirin Low Dose] 81 mg PO QAM #0 07/31/13 03/21/20 History levothyroxine 75 mcg PO QAM #0 tab 07/31/13 03/21/20 History warfarin 3 mg PO 3XWK #0 tab 07/31/13 03/21/20 History Oxygen Home #0 09/10/13 02/13/19 History lorazepam [Ativan] 0.5 mg PO BID PRN #0 tab 09/10/13 03/21/20 History metoprolol tartrate 100 mg PO BID #0 tab 09/10/13 03/21/20 History amlodipine [Norvasc] 5 mg PO QAM #0 tab 01/16/18 03/21/20 History warfarin 4 mg PO 4XWK 11/29/18 03/21/20 History calcium phosphate-vitamin D3 1 tab PO DAILY 08/12/19 03/21/20 History [Caltrate Gummy Bites] dorzolamide-timolol 1 drp OPHTHALMIC (EYE) AMPM 08/12/19 03/21/20 History losartan 50 mg PO AMPM 08/12/19 03/21/20 History Slow-Mag 1 tab PO TIDM 03/21/20 03/21/20 History cyclosporine [Restasis] 1 drp OPB BID 03/21/20 03/21/20 History potassium chloride 2 tab PO TIDM 03/21/20 03/21/20 History Past Med/Surg History Medical History Adult hypothyroidism Atrial fibrillation CHF (congestive heart failure) HTN (hypertension) Pacemaker Thyroid disease Surgical History Aortic valve replaced H/O mechanical aortic valve replacement History of colonoscopy 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 Status post Mohs surgery Family History Brother Cancer Sister Cancer Social History Smoking Status: Never smoker Tobacco Type: Cigarettes Second Hand Exposure: No; Hx Alcohol Use: No Hx Substance Use: No Preferred Language: Thai Communication Ability: Effective Adventure Challenge Instructor Required: No Beliefs That Will Affect Care: None marital status: / Current Living Situation: Alone How many Children do You have: 2 Other Information That Helps Us Care for You: No Feels Safe at Home: Yes Safety Concerns: Feels Safe At This Time Review of Systems Review of Systems: All systems reviewed & are unremarkable except as noted in HPI & below Physical Exam Physical Exam: General: patient resting comfortably, NAD, non-toxic in appearance, AA&O x 4 Skin: warm, dry, intact, no rashes or lesions HEENT: NC/AT, PERRL, EOMI, anicteric sclera, conjunctiva without injection, external ear normal to inspection and nontender, nares patent, moist mucus membranes, dentition intact, no oropharyngeal lesions, neck supple, trachea midline, no LAD, no thyromegaly, no JVD Heart: +S1/S2, regular, + mechanical click, no m/r/g Lungs: equal air entry bilaterally, no rales/rhonchi/wheezes Abd: +BS, soft, NT/ND, no masses/organomegaly/ascites Ext: warm, 2+ pulses in UE/LE bilaterally, no clubbing/cyanosis, extensive bruising of RLE from thigh to toes, mildly tender with palpation but no appreciable hematoma, 2+ pulses, mobility/sensation intact of RLE Neuro: nonfocal, patient AA&O x 4, speech intact, no facial droop, moving all extremities on command with equal strength 5/5 Results & Data Results & Data ([facility]) Vital Signs (Past 12 Hours) Vital Signs Temp Pulse Resp BP Pulse Ox 03/21/20 00:30 62 21 170/66 H 94 03/21/20 00:27 92 03/21/20 00:10 37.0 C 67 20 177/70 H 92 Laboratory Results Lab Results 03/21/20 03/21/20 03/21/20 Range/Units 00:10 00:10 00:10 WBC 9.40 (4.8-10.8) K/uL RBC 3.58 L (4.2-5.4) M/uL Hgb 11.7 L (12.0-16.0) g/dL Hct 32.9 L (37-47) % MCV 91.9 (80-100) fL MCH 32.7 (25-34) pg MCHC 35.6 (32-36) g/dL RDW Std Deviation 51.5 H (36.4-46.3) fL RDW Coeff of Sia 15.6 H (11.5-14.5) % Plt Count 142 (130-400) K/uL MPV 9.4 (7.4-10.4) fL Immature Gran % (Auto) 0.6 % Neut % (Auto) 84.6 % Lymph % (Auto) 6.5 % Craven % (Auto) 8.2 % Eos % (Auto) 0.0 % Baso % (Auto) 0.1 % Neut # (Auto) 7.95 H (1.4-6.5) K/uL Lymph # (Auto) 0.61 L (1.2-3.4) K/uL Craven # (Auto) 0.77 H (0.11-0.59) K/uL Eos # (Auto) 0.00 (0-0.5) K/uL Baso # (Auto) 0.01 (0-0.2) K/uL Immature Gran # (Auto) 0.06 H (0.00-0.02) K/uL PT 33.9 H (9.0-12.0) Seconds INR 3.4 H (0.9-1.1) Sodium 120 L (136-145) mmol/L Potassium 3.2 L (3.5-5.1) mmol/L Chloride 86 L (98-107) mmol/L Carbon Dioxide 25 (21-32) mmol/L Anion Gap 9.0 (3-11) BUN 11 (7-18) mg/dl Creatinine 0.69 (0.6-1.2) mg/dl Est Cr Clr Drug Dosing 63.7 ml/min Est GFR ( Amer) 90.1 Est GFR (Non-Af Amer) 77.7 BUN/Creatinine Ratio 15.7 (10-20) Glucose 157 H (70-99) mg/dl Calcium 8.6 (8.5-10.1) mg/dl Total Bilirubin 4.7 H (0.2-1) mg/dl AST 51 H (15-37) U/L ALT 35 (12-78) U/L Alkaline Phosphatase 144 H (45-117) U/L Total Creatine Kinase 161 (26-192) U/L CK-MB (CK-2) 3.8 H (0.5-3.6) ng/ml CK/CKMB % Calc 2.4 (0-3.0) Troponin I 0.031 (0-0.045) ng/ml Total Protein 7.6 (6.4-8.2) gm/dl Albumin 3.2 L (3.4-5.0) gm/dl Globulin 4.4 H (2.5-4.0) gm/dl Albumin/Globulin Ratio 0.7 L (0.9-2) TSH 2.110 (0.300-4.500) uIu/ml Random Cortisol mcg/dl Urine Color Urine Appearance (Clear) Urine pH (4.5-7.5) Ur Specific [place] (1.000-1.030) Urine Protein (Negative) Urine Glucose (UA) (Negative) Urine Ketones (Negative) Urine Blood (Negative) Urine Nitrite (Negative) Urine Bilirubin (Negative) Urine Urobilinogen (Negative) Ur Leukocyte Esterase (Negative) Urine WBC (Auto) (0-5) /hpf Urine RBC (Auto) (0-4) /hpf U Hyaline Cast (Auto) (0-5) /lpf U Epithel Cells (Auto) (0-5) /lpf Urine Bacteria (Auto) (Negative) 03/21/20 03/21/20 Range/Units 00:10 00:10 WBC (4.8-10.8) K/uL RBC (4.2-5.4) M/uL Hgb (12.0-16.0) g/dL Hct (37-47) % MCV (80-100) fL MCH (25-34) pg MCHC (32-36) g/dL RDW Std Deviation (36.4-46.3) fL RDW Coeff of Sia (11.5-14.5) % Plt Count (130-400) K/uL MPV (7.4-10.4) fL Immature Gran % (Auto) % Neut % (Auto) % Lymph % (Auto) % Craven % (Auto) % Eos % (Auto) % Baso % (Auto) % Neut # (Auto) (1.4-6.5) K/uL Lymph # (Auto) (1.2-3.4) K/uL [place]ven # (Auto) (0.11-0.59) K/uL Eos # (Auto) (0-0.5) K/uL Baso # (Auto) (0-0.2) K/uL Immature Gran # (Auto) (0.00-0.02) K/uL PT (9.0-12.0) Seconds INR (0.9-1.1) Sodium (136-145) mmol/L Potassium (3.5-5.1) mmol/L Chloride (98-107) mmol/L Carbon Dioxide (21-32) mmol/L Anion Gap (3-11) BUN (7-18) mg/dl Creatinine (0.6-1.2) mg/dl Est Cr Clr Drug Dosing ml/min Est GFR ( Amer) Est GFR (Non-Af Amer) BUN/Creatinine Ratio (10-20) Glucose (70-99) mg/dl Calcium (8.5-10.1) mg/dl Total Bilirubin (0.2-1) mg/dl AST (15-37) U/L ALT (12-78) U/L Alkaline Phosphatase (45-117) U/L Total Creatine Kinase (26-192) U/L CK-MB (CK-2) (0.5-3.6) ng/ml CK/CKMB % Calc (0-3.0) Troponin I (0-0.045) ng/ml Total Protein (6.4-8.2) gm/dl Albumin (3.4-5.0) gm/dl Globulin (2.5-4.0) gm/dl Albumin/Globulin Ratio (0.9-2) TSH (0.300-4.500) uIu/ml Random Cortisol 54.28 mcg/dl Urine Color Yellow Urine Appearance Cloudy A (Clear) Urine pH 7.5 (4.5-7.5) Ur Specific [place] 1.009 (1.000-1.030) Urine Protein Negative (Negative) Urine Glucose (UA) Negative (Negative) Urine Ketones Negative (Negative) Urine Blood Negative (Negative) Urine Nitrite Negative (Negative) Urine Bilirubin Negative (Negative) Urine Urobilinogen Negative (Negative) Ur Leukocyte Esterase Trace H (Negative) Urine WBC (Auto) 1-5 (0-5) /hpf Urine RBC (Auto) 0-4 (0-4) /hpf U Hyaline Cast (Auto) 0 (0-5) /lpf U Epithel Cells (Auto) 10-20 H (0-5) /lpf Urine Bacteria (Auto) Negative (Negative) Diagnostic Findings CT Thoracic Spine - Subtle fracture through the inferior aspect of the T10 vertebral body extending to the T10-T11 disc space. Degenerative changes CT Abdomen and Pelvis - No solid organ injury or hemoperitoneum. Small hiatal hernia/thickening of distal esophagus. Heterogenous liver. Suspected cholelithiasis. Mild nonspecific pericholecystic edema. Distended bladder. Presacral edema. Colonic diverticula. Trace amounts of fluid in the peritoneal cavity. Anasarca. Thoracic findings as above. CT Head - No intracranial hemorrhage or skull fracture. Involutional changes with small vessel disease. Cataract surgery CT L spine - Spinal compression deformities of L3 and L4, probably chronic. Degenerative changes CT C Spine - No acute fracture or malalignment. Degenerative changes. Aneurysmal/ectatic vessels. Heterogenous thyroid gland CT Chest - subtle fracture through the inferior aspect of the T10 vertebral body extending to the T10=T11 disc space. 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 Bovine arch, brace pelural thickening bilaterally. Interstitial thickening in the lower lung john. Code Status & VTE Plan Code Status FULL VTE Prophylaxis Plan VTE Prophylaxis will be ordered: Yes PG Care Time/CCT Total # of Minutes Spent Total Time Spent with Patient: Total time spent is greater than 50% in coordination of care (as documented) at patient's floor/unit and/or counseling patient: Coding Level of Care Code 69720 Initial Inpt Care Lvl 3 Diagnoses Fall W19.XXXA Encounter type: initial encounter Hyponatremia E87.1 Atrial fibrillation I48.91 Atrial fibrillation type: unspecified H/O mechanical aortic valve replacement Z95.2 Hypokalemia E87.6 HTN (hypertension) I10 Adult hypothyroidism E03.9 Anxiety F41.9 (1) Atrial fibrillation Atrial fibrillation type: unspecified Qualified Code(s): I48.91 - Unspecified atrial fibrillation (2) Fall Encounter type: initial encounter Qualified Code(s): W19.XXXA - Unspecified fall, initial encounter
[2020-03-21] MEDS ORDERED: ONDANSETRON INJ 2 MG/ML 2 ML VIAL IV PRN ×2 (04:14→15:39)
[2020-03-21] MEDS ORDERED: LORazepam 0.5 MG TAB PO PRN (04:14)
[2020-03-21 05:54] LABS: Magnesium 1.4 mg/dl (1.8-2.4); Phosphorus 3.1 mg/dl (2.5-4.9)
[2020-03-21] MEDS: LEVOTHYROXINE SODIUM 75 MCG TABLET PO SCH (05:58)
--- NOTE | 2020-03-21 06:52 | Ultrasound Report ---
US abdomen limited HISTORY: 89 years-old Female Pt c/o RUQ abd pain acute right upper quadrant abdominal pain COMPARISON: CT abdomen and pelvis of same day TECHNIQUE: Multiple real-time sonographic images of the abdominal right upper quadrant were obtained assessing grayscale appearance and color flow FINDINGS: Visualized pancreas is unremarkable. Diffusely heterogeneous appearance of the liver. Trace perihepat ic ascites. Cholelithiasis with posterior acoustic shadowing. There is mild gallbladder wall thickeni ng. The sonographic Kramer sign was unable to be assessed secondary to recent pain medication adminis tered to the patient. No significant gallbladder distention. Common bile duct is mildly dilated measu ring up to 8 mm. There are numerous filling defects within the common bile duct measuring up to 5 mm. Imaged right kidney is unremarkable without hydronephrosis. IMPRESSION: 1. Cholelithiasis and gallbladder wall thickening is noted. No significant gallbladder distention. Th ere is however trace perihepatic ascites. Findings are equivocal for acute cholecystitis. This findin g could be correlated with nuclear medicine hepatobiliary scan. 2. Choledocholithiasis with the common bile duct measuring within the upper limits of normal for misty ent age. No intrahepatic biliary ductal dilation. ACT 112: Negative or not required by law. The above report was generated using voice recognition software. It may contain grammatical, syntax o r spelling errors. Electronically signed by: Bret Casas M.D. 03/21/2020 6:50 AM
--- NOTE | 2020-03-21 07:01 | CT Scan Report ---
CT head/brain wo con CLINICAL HISTORY: 89 years-old Female with Pt c/o fall, hit head on coumadin. Acute head and neck tr auma TECHNIQUE: Multiple axial CT images of the head were obtained without contrast. A dose lowering tech nique was utilized adhering to the principles of ALARA. COMPARISON: Head CT 07/31/2013. FINDINGS: No acute intracranial hemorrhage, midline shift, intracranial mass, hydrocephalus, territorial ischem ia or abnormal extra-axial collection. Age-related involutional changes. Patchy white matter hypodens ities suggest chronic microvascular ischemic disease. Senescent calcifications of the lentiform nucle i. Cerebral vascular calcifications. The calvarium is intact. Unchanged 2.3 cm lucent lesion involving the anterior left frontal bone, lik nae benign. 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 The paranasal sinus es, mastoid air cells, and middle ear cavities are clear. Prior bilateral lens replacement. IMPRESSION: No acute intracranial abnormality or calvarial fracture. ACT 112: Negative or not required by law. The above report was generated using voice recognition software. It may contain grammatical, syntax o r spelling errors. Electronically signed by: Bret Casas M.D. 03/21/2020 6:59 AM
--- NOTE | 2020-03-21 07:04 | CT Scan Report ---
CT cervical spine wo con CLINICAL HISTORY: 89 years-old Female with Pt c/o back pain. Acute posttraumatic head and neck pain. COMPARISON: CT head of same day TECHNIQUE: Multiple axial CT images of the cervical spine were obtained without contrast. A dose low ering technique was utilized adhering to the principles of ALARA. FINDINGS: Demineralized appearance of the bones. Chondrocalcinosis of the disc spaces. Multilevel spondylitic s purring. Moderate disc space narrowing is most pronounced at C5-C6, C6-C7 and C7-T1. Posterior annula r disc bulging with multilevel posterior disc osteophyte complex formations. Moderate to severe facet arthrosis. Severe degeneration at C1-C2. No acute fracture or subluxation. Multilevel Central canal and foraminal narrowing. No pneumothorax. Ectatic proximal great vessels. Calcified plaque of the carotid bulbs and proximal i nternal carotid arteries. There is no prevertebral soft tissue swelling. Diffusely heterogeneous thyr oid. IMPRESSION: No acute fracture or subluxation. ACT 112: Negative or not required by law. The above report was generated using voice recognition software. It may contain grammatical, syntax o r spelling errors. Electronically signed by: Bret Casas M.D. 03/21/2020 7:03 AM
--- NOTE | 2020-03-21 07:20 | XRay Report ---
XR femur RT 2V routine, XR tibia fibula RT 2V HISTORY: 89 years-old Female Pt c/o Rt leg bruising s/p fall acute right lower extremity pain status post fall COMPARISON: CT abdomen and pelvis of same day TECHNIQUE: 2 views the right femur and 2 views of the right tibia and fibula FINDINGS: FEMUR: Mild to moderate right hip osteoarthritis. Demineralized appearance of the bones. No acute fracture, dislocation or avascular necrosis. There is chronic appearing cortical thickening involving the media l distal femoral metadiaphysis. Mild diffuse lateral soft tissue prominence. TIBIA/FIBULA: Right knee total joint arthroplasty and patella resurfacing. No evidence of hardware complication, ac [place] fracture or dislocation. Diffuse soft tissue prominence. Small joint effusion of the knee. Multif ocal osteoarthritis of the foot and ankle. IMPRESSION: No acute fracture or dislocation. ACT 112: Negative or not required by law. The above report was generated using voice recognition software. It may contain grammatical, syntax o r spelling errors. Electronically signed by: Bret Casas M.D. 03/21/2020 7:18 AM
--- NOTE | 2020-03-21 08:00 | CT Scan Report ---
CT SCAN OF THE CHEST, ABDOMEN, AND PELVIS WITH IV CONTRAST; CT SCAN OF THE THORACIC SPINE WITHOUT IV CONTRAST; CT SCAN OF THE LUMBAR SPINE WITHOUT IV CONTRAST CLINICAL HISTORY: Fall. Back pain. COMPARISON STUDY: Chest CT dated 10/25/2011. Abdominal CT dated 08/12/2019. TECHNIQUE: Following the IV administration of 92 of Optiray 320, CT scan of the chest, abdomen, and p ernie was performed from the thoracic inlet to the proximal femora. Images are reviewed in the axial, sagittal, and coronal planes. IV contrast was administered without complication. Additionally, unen hanced CT scan of the thoracic spine is performed from the lower cervical spine to the upper lumbar s pine and unenhanced CT scan of lumbar spine is performed from the lower thoracic spine to the sacrum. The thoracic and lumbar spinal CT scans are reviewed in the axial, sagittal, and coronal planes. IV contrast was not administered specifically for the spinal CTs. A dose lowering technique was utilized adhering to the principles of ALARA. The examination is degraded by motion artifact, as well as by s treak artifact from the arms which could not be elevated above the chest or abdomen. CT DOSE: 2392.90 mGy.cm FINDINGS: CHEST: Thyroid: Imaged portions of the thyroid gland are normal in size and heterogeneous in attenuation. Thoracic aorta: There is atherosclerotic calcification of the thoracic aorta. Postoperative changes n oted involving the proximal thoracic aorta. There is mild aneurysmal dilatation of the ascending thor acic aorta which measures 4.7 cm. The arch demonstrates bovine variant anatomy. There is ectasia of t he innominate artery which measures up to 2.7 cm. The arch vessels are patent. No dissection is seen. Pulmonary vasculature: The main pulmonary arteries are dilated suggesting pulmonary artery hypertensi on. There are no filling defects identified in the central pulmonary vessels to indicate pulmonary em bolus. Note that this examination was not protocoled for evaluation of the pulmonary arteries. Heart: The patient is status post midline sternotomy. There is evidence of previous cardiac valve mami michelle. A cardiac AICD is present in the left chest wall. The heart is enlarged and without pericardial effusion. The coronary arteries are densely calcified. Lungs and pleural spaces: Evaluation of the lung parenchyma is degraded by motion artifact. Question mild emphysematous change. There are trace pleural effusions. There is mild diffuse intralobular sept al thickening. Subpleural reticulation is noted in the lower lobes. There is bibasilar scarring/atele ctasis. No airspace consolidation is seen typical for pneumonia. There is no pneumothorax. Loculated fluid is noted on the right major fissure. There are scattered calcified granulomas. A 2 mm nodule in the lingula on image #128 is unchanged from 2012, as is a 3 mm right upper lobe nodule on image #86. These are of doubtful significance. Mediastinum: There is no mediastinal hematoma or lymphadenopathy. Joy: Clear. Axillae: There is no axillary lymphadenopathy. Bony thorax: The skeletal structures are osteopenic. See below for dedicated assessment of the thorac ic spine. No lytic or blastic lesions are identified. There are age indeterminant left anterolateral 5th through 7th rib fractures. Advanced arthritic changes seen in the shoulders with calcified joint bodies on the right. THORACIC SPINE: There is subtle fracture through the anterior aspect of the T10 vertebral body, best seen on sagittal image #38. This extends to the disc space, with no clear involvement of the posterio r elements. No additional acute fracture is identified involving the thoracic spine. There is a mild to moderate chronic compression deformity of T12. Vertebral body height is otherwise maintained throu ghout the thoracic spine. Anterior osteophytes are seen throughout. The transverse and spinous proces ses are intact. There is multilevel degenerative disc space narrowing. The central canal is grossly c lear. The paraspinous soft tissues are normal in appearance. ABDOMEN AND PELVIS: Liver: Evaluation of the liver is significantly degraded by streak artifact. The contrast-enhanced li sagrario is cirrhotic in morphology and heterogeneous in attenuation. There is nodularity of the hepatic s urface contour. There is no intrahepatic biliary ductal dilatation. The hepatic veins and portal vein s are patent. Mild periportal edema is noted. Gallbladder: There are numerous gallstones with no CT evidence of acute cholecystitis. Spleen: Normal in size and attenuation. Pancreas: Moderately atrophic and grossly unremarkable. Adrenal glands: Unremarkable. Kidneys: The contrast enhanced kidneys demonstrate cortical atrophy and are without hydronephrosis. T he kidneys enhance symmetrically. Abdominal vasculature: The abdominal aorta is normal in course and caliber noting advanced atheroscle rotic calcification. Stomach and bowel: There is a small hiatal hernia there is moderate colonic diverticulosis without CT evidence of acute diverticulitis. No bowel obstruction is seen. The appendix is well-visualized and normal. Peritoneum: There is trace perihepatic and perisplenic ascites. No intraperitoneal free air is seen. There is a small fat-containing umbilical hernia. Lymphadenopathy: None. Pelvic viscera: The bladder is distended but otherwise normal in appearance. The endometrium appears thickened for age measuring up to 14 mm in thickness. No adnexal lesion is identified. There is nonsp ecific presacral stranding. Skeletal structures: The skeletal structures are osteopenic. The bony pelvis and proximal femora appe ar intact. See below for dedicated assessment of the lumbar spine. A large hemangioma is noted in the body of L1. No lytic or blastic lesions are seen. LUMBAR SPINE: There are moderate chronic compression deformities of L3 and L4. Vertebral body height is otherwise maintained throughout the lumbar spine. There is minimal retrolisthesis at L2-L3 and L3- L4. Alignment is otherwise preserved. Anterior and lateral marginal osteophytes are seen throughout. There is straightening of the lumbar lordosis. The transverse and spinous processes are intact. There is no evidence of spondylolysis. Moderate to advanced disc space narrowing is seen at all lumbar lev els, greatest at L1-L2 and L2-L3. Posterior disc osteophyte complexes are seen at all lumbar levels a nd likely contribute to multilevel acquired compromise of the central canal. This is greatest at L2-L 3 and L3-L4. Advanced facet arthropathy is seen in the lower lumbar spine. This contributes to multil evel bilateral neural foraminal stenosis. There is fatty atrophy of the paraspinous musculature. IMPRESSION: 1. There are age indeterminant left anterolateral rib fractures as above. Correlate for point tendern ess. 2. Marked cardiomegaly. Intralobular septal thickening suggests acute versus chronic congestive issa e. Clinical correlation will be required. 3. There are trace pleural effusions with loculated fluid noted along the right major fissure. 4. There is no airspace consolidation or pneumothorax. 5. There is a subtle horizontally oriented fracture through the anterior endplate of the T10 vertebra l body which extends to the T10-T11 disc space. There is no clear involvement of the posterior elemen ts. 6. No additional fracture is identified involving the thoracic spine. 7. There is no evidence of fracture or malalignment involving the lumbar spine. 8. There is no evidence of solid organ injury in the abdomen or pelvis. 9. Cirrhotic liver morphology. 10. The endometrium appears thickened for age measuring up to 14 mm in thickness. This is not well id entified by CT, and gynecology follow-up and nonemergent pelvic ultrasound is recommended for further assessment. 11. Moderate colonic diverticulosis without CT evidence of acute diverticulitis. 12. Cholelithiasis. 13. Trace abdominal ascites. 14. Postoperative change is noted in the involving the thoracic aorta. There is mild aneurysmal dilat ation of the ascending thoracic aorta which measures up to 4.7 cm. There is also ectasia of the innom inate artery. 15. Additional findings as above. ACT 112: Negative or not required by law. Electronically signed by: Nathan Oseguera M.D. 03/21/2020 7:58 AM
[2020-03-21] MEDS: METOPROLOL TARTRATE 100 MG TAB PO SCH ×2 (08:24→20:57)
[2020-03-21] MEDS: LOSARTAN POTASSIUM 50 MG TAB PO SCH ×2 (08:25→20:57)
[2020-03-21] MEDS: CALCIUM 600MG + VIT D 400 IU TAB PO SCH ×2 (08:25→09:00)
[2020-03-21] MEDS: DORZOLAMIDE/TIMOLOL 22.3/6.8MG/ML 10 ML BTL OP SCH ×2 (08:26→20:55)
[2020-03-21] MEDS ORDERED: AMLODIPINE BESYLATE 5 MG TAB PO SCH (09:00)
[2020-03-21] MEDS ORDERED: ASPIRIN 81 MG ECTAB PO SCH (09:00)
[2020-03-21] MEDS ORDERED: NSS + 20MEQ KCL 20 MEQ/1,000 ML BAG IV SCH (09:15)
[2020-03-21] MEDS: MAGNESIUM SULFATE / D5W 1 GM/100 ML BAG IV SCH ×2 (09:32→11:32)
--- NOTE | 2020-03-21 09:35 | Gastrointestinal Consultation ---
Date of Consultation March 21, 2020 Assessment & Plan (1) Choledocholithiasis: 89 y/o female with PMhx a-fib, tachy-fahad syndrome, s/p pacemaker, AVR/MVR/TVR, on Coumadin, HTN, cirrhosis and others admitted after fall at home, and GI consulted for US ABD + for choledocholithiasis, cholelithiasis, with equivocal findings for acute cholecystitis, tbili 4.7. She is noted to have some mild jaundice on exam; reports several day history of n/v/abd discomfort which is improved with medications at present. Abd is soft but mildly distended; she's afebrile, HD stable. INR being reversed with Kcentra, Vit K. - Keep NPO - Will plan for ERCP this afternoon - Continue INR reversal - Optimize electrolytes as able - IVF - Analgesia PRN - Antiemetics PRN - Consider surgery consult for cholecystectomy Thank you for allowing us to participate in the care of this patient. Please call with any acute changes, questions or concerns. Please see addendum below with additional recommendation from my supervising physician. Supervising Physician Co-Signing Physician Notes I performed a history and physical examination of the patient today, including specifically on physical exam - soft abdomen. I have discussed the patient's management with the advanced practitioner. Please refer to the nurse practitioner's note for the documented findings and plan of care. Patient with Liver cirrhosis, extensive cardiac disease, on Coumadin, presented after a fall, reports nausea, vomiting and abdominal pain, found to have gallstones and choledocholithiasis on sono. Labs showed elevated bilirubin. INR is 1.3 after K-centra. PLT normal. Recommend: ERCP today. She does not seem to be a good candidate for cholecystectomy hence will discuss EUS guided cholecystoduodenostomy as OP at [facility]. History of Present Illness Reason for Consultation: choledocholithiasis Attending Physician: Breanna Snowden MD History of Present Illness 89 y/o female with PMhx a-fib on Coumadin, CHF, HTN, h/o AVR/TVR/MVR, pacemaker in situ, hypothyroidism, chronic hyponatremia, cirrhosis on imaging, chronic leg edema, and others admitted for fall at home, GI consulted as she had choledocholithiasis with cholelithiasis, equivocal acute cholecystitis on US. CTAP noting cirrhotic liver, cholelithiasis. Labs notable for tbili 4.7, INR 3.4, Na 120 (acute on chronic hyponatremia), cr 0.69, AST 51, ALP 144, INR 3.4 on warfarin, no leukocytosis. Pt notes she began having nausea, a few episodes of vomiting, abd discomfort earlier in the week. She had some diarrhea with BRBPR (which she gets from time to time, she believes from hemorrhoids), but no diarrhea, vomiting today. Presently having some persistent generalized abd discomfort but feeling overall improved. She ate some eggs for breakfast but is now NPO. Denies fever, chills, CP, SOB, cough, melena, hematemesis, jaundice, dark urine, phan stools, dysuria, hematuria. No prior h/o abdominal surgeries. Allergies Allergy/AdvReac Type Severity Reaction Status Date / Time Sulfa (Sulfonamide Allergy Intermediate HIVES Verified 03/21/20 02:04 Antibiotics) Home Medications Home Medications Medication Instructions Recorded Confirmed Type furosemide [Lasix] 40 mg PO BID #0 tab 01/17/12 03/21/20 History Centrum Silver Women 1 tab PO DAILY #0 07/31/13 03/21/20 History aspirin [Aspirin Low Dose] 81 mg PO QAM #0 07/31/13 03/21/20 History levothyroxine 75 mcg PO QAM #0 tab 07/31/13 03/21/20 History warfarin 3 mg PO 3XWK #0 tab 07/31/13 03/21/20 History Oxygen Home #0 09/10/13 02/13/19 History lorazepam [Ativan] 0.5 mg PO BID PRN #0 tab 09/10/13 03/21/20 History metoprolol tartrate 100 mg PO BID #0 tab 09/10/13 03/21/20 History amlodipine [Norvasc] 5 mg PO QAM #0 tab 01/16/18 03/21/20 History warfarin 4 mg PO 4XWK 11/29/18 03/21/20 History calcium phosphate-vitamin D3 1 tab PO DAILY 08/12/19 03/21/20 History [Caltrate Gummy Bites] dorzolamide-timolol 1 drp OPHTHALMIC (EYE) AMPM 08/12/19 03/21/20 History losartan 50 mg PO AMPM 08/12/19 03/21/20 History Slow-Mag 1 tab PO TIDM 03/21/20 03/21/20 History cyclosporine [Restasis] 1 drp OPB BID 03/21/20 03/21/20 History potassium chloride 2 tab PO TIDM 03/21/20 03/21/20 History Patient History Medical History (Updated 03/21/20 @ 14:39 by Keith Orantes MD) Adult hypothyroidism Atrial fibrillation CHF (congestive heart failure) Choledocholithiasis Chronic hyponatremia HTN (hypertension) Pacemaker Pulmonary hypertension severe Thyroid disease Surgical History Aortic valve replaced H/O mechanical aortic valve replacement History of colonoscopy 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 Status post Mohs surgery Family History Brother Cancer Sister Cancer Social History Smoking Status: Never smoker Tobacco Type: Cigarettes Second Hand Exposure: No; Hx Alcohol Use: No Hx Substance Use: No Preferred Language: Jordanian Communication Ability: Effective Senior Financial Consultant Required: No Beliefs That Will Affect Care: None marital status: / Current Living Situation: Alone How many Children do You have: 2 Other Information That Helps Us Care for You: No Feels Safe at Home: Yes Safety Concerns: Feels Safe At This Time Review of Systems Constitutional: no fever and no chills Eyes: no icterus Respiratory: no cough and no dyspnea Cardiovascular: as per Subjective / HPI Gastrointestinal: as per Subjective / HPI Genitourinary: no dysuria Neurologic: + falls Hematologic / Lymphatic: bruising on legs from falls Physical Exam Constitutional: WD/WN, vitals as above Eyes: + anicteric sclerae Respiratory: normal respiratory effort, lungs clear to auscultation Cardiovascular: Rate/Rhythm: regular rate and regular rhythm Extremities: + edema (bilateral leg edema ) + mechanical click Gastrointestinal (Abdomen): mildly distended, mild upper abd tenderness, + BS, no rebound, guarding, masses Skin: mild jaundice noted. Right leg with + ecchymosis Psychiatric: A+Ox3, euthymic affect Results & Data ([facility]) Vital Signs (Past 12 Hours) Vital Signs Temp Pulse Pulse Resp BP BP Pulse Ox 03/21/20 07:28 36.4 C L 60 20 150/65 H 95 03/21/20 04:32 60 03/21/20 04:17 36.8 C 60 24 178/66 H 92 03/21/20 02:30 60 20 173/59 H 94 03/21/20 02:18 60 15 162/66 H 94 03/21/20 00:30 62 21 170/66 H 94 03/21/20 00:27 92 03/21/20 00:10 37.0 C 67 20 177/70 H 92 Laboratory Results 03/21/20 03/21/20 03/21/20 Range/Units 05:16 05:16 05:16 WBC (4.8-10.8) K/uL RBC (4.2-5.4) M/uL Hgb (12.0-16.0) g/dL Hct (37-47) % MCV (80-100) fL MCH (25-34) pg MCHC (32-36) g/dL RDW Std Deviation (36.4-46.3) fL RDW Coeff of Sia (11.5-14.5) % Plt Count (130-400) K/uL MPV (7.4-10.4) fL Immature Gran % (Auto) % Neut % (Auto) % Lymph % (Auto) % Stearns % (Auto) % Eos % (Auto) % Baso % (Auto) % Neut # (Auto) (1.4-6.5) K/uL Lymph # (Auto) (1.2-3.4) K/uL Stearns # (Auto) (0.11-0.59) K/uL Eos # (Auto) (0-0.5) K/uL Baso # (Auto) (0-0.2) K/uL Immature Gran # (Auto) (0.00-0.02) K/uL PT (9.0-12.0) Seconds INR (0.9-1.1) Sodium (136-145) mmol/L Potassium (3.5-5.1) mmol/L Chloride (98-107) mmol/L Carbon Dioxide (21-32) mmol/L Anion Gap (3-11) BUN (7-18) mg/dl Creatinine (0.6-1.2) mg/dl Est Cr Clr Drug Dosing ml/min Est GFR ( Amer) Est GFR (Non-Af Amer) BUN/Creatinine Ratio (10-20) Glucose (70-99) mg/dl Osmolality 261 L (280-300) mOsm/kg Calcium (8.5-10.1) mg/dl Phosphorus 3.1 (2.5-4.9) mg/dl Magnesium 1.4 L (1.8-2.4) mg/dl Total Bilirubin (0.2-1) mg/dl AST (15-37) U/L ALT (12-78) U/L Alkaline Phosphatase (45-117) U/L Total Creatine Kinase (26-192) U/L CK-MB (CK-2) (0.5-3.6) ng/ml CK/CKMB % Calc (0-3.0) Troponin I 0.036 (0-0.045) ng/ml Total Protein (6.4-8.2) gm/dl Albumin (3.4-5.0) gm/dl Globulin (2.5-4.0) gm/dl Albumin/Globulin Ratio (0.9-2) TSH (0.300-4.500) uIu/ml Random Cortisol mcg/dl Urine Color Urine Appearance (Clear) Urine pH (4.5-7.5) Ur Specific [place] (1.000-1.030) Urine Protein (Negative) Urine Glucose (UA) (Negative) Urine Ketones (Negative) Urine Blood (Negative) Urine Nitrite (Negative) Urine Bilirubin (Negative) Urine Urobilinogen (Negative) Ur Leukocyte Esterase (Negative) Urine WBC (Auto) (0-5) /hpf Urine RBC (Auto) (0-4) /hpf U Hyaline Cast (Auto) (0-5) /lpf U Epithel Cells (Auto) (0-5) /lpf Urine Bacteria (Auto) (Negative) 03/21/20 03/21/20 03/21/20 Range/Units 00:10 00:10 00:10 WBC (4.8-10.8) K/uL RBC (4.2-5.4) M/uL Hgb (12.0-16.0) g/dL Hct (37-47) % MCV (80-100) fL MCH (25-34) pg MCHC (32-36) g/dL RDW Std Deviation (36.4-46.3) fL RDW Coeff of Sia (11.5-14.5) % Plt Count (130-400) K/uL MPV (7.4-10.4) fL Immature Gran % (Auto) % Neut % (Auto) % Lymph % (Auto) % Stearns % (Auto) % Eos % (Auto) % Baso % (Auto) % Neut # (Auto) (1.4-6.5) K/uL Lymph # (Auto) (1.2-3.4) K/uL Stearns # (Auto) (0.11-0.59) K/uL Eos # (Auto) (0-0.5) K/uL Baso # (Auto) (0-0.2) K/uL Immature Gran # (Auto) (0.00-0.02) K/uL PT (9.0-12.0) Seconds INR (0.9-1.1) Sodium 120 L (136-145) mmol/L Potassium 3.2 L (3.5-5.1) mmol/L Chloride 86 L (98-107) mmol/L Carbon Dioxide 25 (21-32) mmol/L Anion Gap 9.0 (3-11) BUN 11 (7-18) mg/dl Creatinine 0.69 (0.6-1.2) mg/dl Est Cr Clr Drug Dosing 63.7 ml/min Est GFR ( Amer) 90.1 Est GFR (Non-Af Amer) 77.7 BUN/Creatinine Ratio 15.7 (10-20) Glucose 157 H (70-99) mg/dl Osmolality (280-300) mOsm/kg Calcium 8.6 (8.5-10.1) mg/dl Phosphorus (2.5-4.9) mg/dl Magnesium (1.8-2.4) mg/dl Total Bilirubin 4.7 H (0.2-1) mg/dl AST 51 H (15-37) U/L ALT 35 (12-78) U/L Alkaline Phosphatase 144 H (45-117) U/L Total Creatine Kinase 161 (26-192) U/L CK-MB (CK-2) 3.8 H (0.5-3.6) ng/ml CK/CKMB % Calc 2.4 (0-3.0) Troponin I 0.031 (0-0.045) ng/ml Total Protein 7.6 (6.4-8.2) gm/dl Albumin 3.2 L (3.4-5.0) gm/dl Globulin 4.4 H (2.5-4.0) gm/dl Albumin/Globulin Ratio 0.7 L (0.9-2) TSH 2.110 (0.300-4.500) uIu/ml Random Cortisol 54.28 mcg/dl Urine Color Yellow Urine Appearance Cloudy A (Clear) Urine pH 7.5 (4.5-7.5) Ur Specific [place] 1.009 (1.000-1.030) Urine Protein Negative (Negative) Urine Glucose (UA) Negative (Negative) Urine Ketones Negative (Negative) Urine Blood Negative (Negative) Urine Nitrite Negative (Negative) Urine Bilirubin Negative (Negative) Urine Urobilinogen Negative (Negative) Ur Leukocyte Esterase Trace H (Negative) Urine WBC (Auto) 1-5 (0-5) /hpf Urine RBC (Auto) 0-4 (0-4) /hpf U Hyaline Cast (Auto) 0 (0-5) /lpf U Epithel Cells (Auto) 10-20 H (0-5) /lpf Urine Bacteria (Auto) Negative (Negative) 03/21/20 03/21/20 Range/Units 00:10 00:10 WBC 9.40 (4.8-10.8) K/uL RBC 3.58 L (4.2-5.4) M/uL Hgb 11.7 L (12.0-16.0) g/dL Hct 32.9 L (37-47) % MCV 91.9 (80-100) fL MCH 32.7 (25-34) pg MCHC 35.6 (32-36) g/dL RDW Std Deviation 51.5 H (36.4-46.3) fL RDW Coeff of Sia 15.6 H (11.5-14.5) % Plt Count 142 (130-400) K/uL MPV 9.4 (7.4-10.4) fL Immature Gran % (Auto) 0.6 % Neut % (Auto) 84.6 % Lymph % (Auto) 6.5 % Stearns % (Auto) 8.2 % Eos % (Auto) 0.0 % Baso % (Auto) 0.1 % Neut # (Auto) 7.95 H (1.4-6.5) K/uL Lymph # (Auto) 0.61 L (1.2-3.4) K/uL Stearns # (Auto) 0.77 H (0.11-0.59) K/uL Eos # (Auto) 0.00 (0-0.5) K/uL Baso # (Auto) 0.01 (0-0.2) K/uL Immature Gran # (Auto) 0.06 H (0.00-0.02) K/uL PT 33.9 H (9.0-12.0) Seconds INR 3.4 H (0.9-1.1) Sodium (136-145) mmol/L Potassium (3.5-5.1) mmol/L Chloride (98-107) mmol/L Carbon Dioxide (21-32) mmol/L Anion Gap (3-11) BUN (7-18) mg/dl Creatinine (0.6-1.2) mg/dl Est Cr Clr Drug Dosing ml/min Est GFR ( Amer) Est GFR (Non-Af Amer) BUN/Creatinine Ratio (10-20) Glucose (70-99) mg/dl Osmolality (280-300) mOsm/kg Calcium (8.5-10.1) mg/dl Phosphorus (2.5-4.9) mg/dl Magnesium (1.8-2.4) mg/dl Total Bilirubin (0.2-1) mg/dl AST (15-37) U/L ALT (12-78) U/L Alkaline Phosphatase (45-117) U/L Total Creatine Kinase (26-192) U/L CK-MB (CK-2) (0.5-3.6) ng/ml CK/CKMB % Calc (0-3.0) Troponin I (0-0.045) ng/ml Total Protein (6.4-8.2) gm/dl Albumin (3.4-5.0) gm/dl Globulin (2.5-4.0) gm/dl Albumin/Globulin Ratio (0.9-2) TSH (0.300-4.500) uIu/ml Random Cortisol mcg/dl Urine Color Urine Appearance (Clear) Urine pH (4.5-7.5) Ur Specific [place] (1.000-1.030) Urine Protein (Negative) Urine Glucose (UA) (Negative) Urine Ketones (Negative) Urine Blood (Negative) Urine Nitrite (Negative) Urine Bilirubin (Negative) Urine Urobilinogen (Negative) Ur Leukocyte Esterase (Negative) Urine WBC (Auto) (0-5) /hpf Urine RBC (Auto) (0-4) /hpf U Hyaline Cast (Auto) (0-5) /lpf U Epithel Cells (Auto) (0-5) /lpf Urine Bacteria (Auto) (Negative) Diagnostic Findings US ABD 03/21/20 1. Cholelithiasis and gallbladder wall thickening is noted. No significant gallbladder distention. There is however trace perihepatic ascites. Findings are equivocal for acute cholecystitis. This finding could be correlated with nuclear medicine hepatobiliary scan. 2. Choledocholithiasis with the common bile duct measuring within the upper limits of normal for patient age. No intrahepatic biliary ductal dilation. CT chest/abd/pelvis 03/21/20: 1. There are age indeterminant left anterolateral rib fractures as above. Correlate for point tenderness. 2. Marked cardiomegaly. Intralobular septal thickening suggests acute versus chronic congestive change. Clinical correlation will be required. 3. There are trace pleural effusions with loculated fluid noted along the right major fissure. 4. There is no airspace consolidation or pneumothorax. 5. There is a subtle horizontally oriented fracture through the anterior endplate of the T10 vertebral body which extends to the T10-T11 disc space. There is no clear involvement of the posterior elements. 6. No additional fracture is identified involving the thoracic spine. 7. There is no evidence of fracture or malalignment involving the lumbar spine. 8. There is no evidence of solid organ injury in the abdomen or pelvis. 9. Cirrhotic liver morphology. 10. The endometrium appears thickened for age measuring up to 14 mm in thickness. This is not well identified by CT, and gynecology follow-up and nonemergent pelvic ultrasound is recommended for further assessment. 11. Moderate colonic diverticulosis without CT evidence of acute diverticulitis. 12. Cholelithiasis. 13. Trace abdominal ascites. 14. Postoperative change is noted in the involving the thoracic aorta. There is mild aneurysmal dilatation of the ascending thoracic aorta which measures up to 4.7 cm. There is also ectasia of the innominate artery.
[2020-03-21] MEDS ORDERED: PROTHROMBIN COMP CONC- KCENTRA 2,000 UNITS in SYRINGE 0 ML IV SCH (09:45)
[2020-03-21] MEDS ORDERED: PHYTONADIONE 5 MG in SODIUM CHLORIDE 0.9% 50 ML IV ONE (09:45)
[2020-03-21 09:54] LABS: Albumin Level 2.8 gm/dl (3.4-5.0); BUN Creatinine Ratio 14.2 (10-20); Bilirubin Direct 1.3 mg/dl (0-0.2); Calcium 8.8 mg/dl (8.5-10.1); Est GFR (African American) 92.8; Est GFR (Non-African American) 80.1; Potassium 3.6 mmol/L (3.5-5.1)
[2020-03-21 10:04] LABS: Bilirubin,Total 3.3 mg/dl (0.2-1); Total Protein 6.9 gm/dl (6.4-8.2)
--- NOTE | 2020-03-21 12:23 | Cardiology Consultation ---
Date of Consultation March 21, 2020 Assessment & Plan (1) Choledocholithiasis: (2) Atrial fibrillation: (3) H/O mechanical aortic valve replacement: (4) Acute on chronic diastolic (congestive) heart failure: Case discussed with Dr. Snowden, agree with utilizing IV vitamin K, and Kcentra to reverse the patient's Coumadin related coagulopathy in preparation for ERCP. The patient is very frail, and has a complex cardiac history as noted, but I believe that she is well compensated at present in terms of proceeding with sedation for ERCP. Hyponatremia noted, this is been present since August,, spironolactone previously discontinued. Agree with holding her prior to hospital dose of furosemide 40 mg twice daily at present. Perhaps during this hospital stay, it would be a good idea to transition her off of amlodipine in an effort to reduce risk of medication related edema. This can be reassessed as her hospital stay develops as we get her through the procedure. Her electrolyte derangements have been replaced by the primary service including low potassium and low magnesium levels. It is noted that her most recent pacemaker interrogation performed as an outpatient last month, February,, revealed ongoing findings that she is pacemaker dependent, with her underlying rhythm atrial fibrillation with complete heart block. This will need to be taken into account in terms of application of any electrocautery, as standard operating room procedure for pacemaker patient's is recommended. History of Present Illness Attending Physician: Breanna Snowden MD History of Present Illness Clarisse Mo is an 89 year old male seen in cardiology consultation per the request of Dr Snowden in perioprocedure cardiology evaluation for anticipated ERCP. The patient is well-known to the undersigned as I follow her as an outpatient. She had most recently been seen in person by the undersigned on 03/07/2020 at which time stable cardiac signs and symptoms were noted including stable chronic lower extremity edema. In the meantime, she had 2 recent falls, the first of which took place about 2 weeks ago, with significant trauma to her right leg, with a resultant large area of hematoma from just above the knee, and extend to her right lower leg. She had been off of her Coumadin for several days, and recently reinitiated it. She presented to the emergency department just after midnight on 03/21/2020. The patient reported mechanical fall 4 hours prior to arrival. She was unable to get up, and laid on the floor until she was able to summon help by phone. A CT of the chest abdomen pelvis was performed due to her trauma. She was found to have aged indeterminate left anterolateral rib fractures. Her heart silhouette was enlarged with chronic congestive changes noted in the lung john. Trace abdominal ascites noted. Aneurysmal dilatation of the ascending thoracic aorta up to 4.7 cm as well as ectasia of the innominate artery noted. The patient describes several days of waxing and waning right upper quadrant abdominal pain as well as diarrhea. She therefore underwent a right upper quadrant ultrasound with findings of cholelithiasis and gallbladder wall thickening. She appears mildly jaundiced on exam, with total bilirubin of 4.7. At present she describes a stable degree of exertional shortness of breath.No acute cardiac complaints. Past Cardiac History: Complex cardiac surgery performed at [facility] in 2011 including ascending aorta repair, mechanical aortic valve replacement, mitral valve repair, tricuspid valve repair and annuloplasty, closure of an atrial septal defect. 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 Echocardiogram August, revealing normal mechanical prosthetic aortic valve function, severe pulmonary hypertension. RV dysfunction, normal LVEF. History of early generator longevity depletions due to pacing threshold of the RV lead, at the time of device check in July 2019, the RV pulse width was set for 0.5 ms in hope of increasing generator longevity Hyponatremia diagnosed August,, for which spironolactone was discontinued Allergies Allergy/AdvReac Type Severity Reaction Status Date / Time Sulfa (Sulfonamide Allergy Intermediate HIVES Verified 03/21/20 02:04 Antibiotics) Home Medications Home Medications Medication Instructions Recorded Confirmed Type furosemide [Lasix] 40 mg PO BID #0 tab 01/17/12 03/21/20 History Centrum Silver Women 1 tab PO DAILY #0 07/31/13 03/21/20 History aspirin [Aspirin Low Dose] 81 mg PO QAM #0 07/31/13 03/21/20 History levothyroxine 75 mcg PO QAM #0 tab 07/31/13 03/21/20 History warfarin 3 mg PO 3XWK #0 tab 07/31/13 03/21/20 History Oxygen Home #0 03/03/14 08/06/19 History lorazepam [Ativan] 0.5 mg PO BID PRN #0 tab 09/10/13 03/21/20 History metoprolol tartrate 100 mg PO BID #0 tab 09/10/13 03/21/20 History amlodipine [Norvasc] 5 mg PO QAM #0 tab 01/16/18 03/21/20 History warfarin 4 mg PO 4XWK 11/29/18 03/21/20 History calcium phosphate-vitamin D3 1 tab PO DAILY 08/12/19 03/21/20 History [Caltrate Gummy Bites] dorzolamide-timolol 1 drp OPHTHALMIC (EYE) AMPM 08/12/19 03/21/20 History losartan 50 mg PO AMPM 08/12/19 03/21/20 History Slow-Mag 1 tab PO TIDM 03/21/20 03/21/20 History cyclosporine [Restasis] 1 drp OPB BID 03/21/20 03/21/20 History potassium chloride 2 tab PO TIDM 03/21/20 03/21/20 History Patient History Medical History Adult hypothyroidism Atrial fibrillation CHF (congestive heart failure) HTN (hypertension) Pacemaker Thyroid disease Surgical History Aortic valve replaced H/O mechanical aortic valve replacement History of colonoscopy 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 Status post Mohs surgery Family History Brother Cancer Sister Cancer Social History Smoking Status: Never smoker Tobacco Type: Cigarettes Second Hand Exposure: No; Hx Alcohol Use: No Hx Substance Use: No Preferred Language: Czech Communication Ability: Effective Healthcare Consulting Manager Required: No Beliefs That Will Affect Care: None marital status: / Current Living Situation: Alone How many Children do You have: 2 Other Information That Helps Us Care for You: No Feels Safe at Home: Yes Safety Concerns: Feels Safe At This Time Physical Exam Physical Exam: Temp Pulse Resp BP Pulse Ox 36.5 C 90 18 145/64 H 97 03/21/20 11:31 03/21/20 11:31 03/21/20 11:31 03/21/20 11:31 03/21/20 11:31 Constitutional: + ill appearing no acute distress Jaundice noted Respiratory: mildly decreased BS at the bases Cardiovascular: Regular rhythm , prosthetic hear valve sounds noted Gastrointestinal (Abdomen): RUQ tenderness on palpation Musculoskeletal: Right leg ecchymosis, hematoma Neurologic: PERRL, EOMI, accommodation nl, no face palsy, no dysarthria Results & Data ([facility]) Vital Signs (Past 12 Hours) Vital Signs Temp Pulse Pulse Resp BP BP Pulse Ox 03/21/20 11:31 36.5 C 90 18 145/64 H 97 03/21/20 10:36 36.6 C 60 16 145/66 H 94 03/21/20 10:30 36.4 C L 60 16 152/68 H 95 03/21/20 10:00 36.1 C L 60 16 149/68 H 92 03/21/20 07:28 36.4 C L 60 20 150/65 H 95 03/21/20 04:32 60 03/21/20 04:17 36.8 C 60 24 178/66 H 92 03/21/20 02:30 60 20 173/59 H 94 03/21/20 02:18 60 15 162/66 H 94 03/21/20 00:30 62 21 170/66 H 94 03/21/20 00:27 92 03/21/20 00:10 37.0 C 67 20 177/70 H 92 Laboratory Results INR 3.4 (0.9-1.1) H 03/21/20 00:10 Cardiac Enzymes 03/21/20 03/21/20 03/21/20 Range/Units 00:10 05:16 09:26 AST 51 H 44 H (15-37) U/L CK-MB (CK-2) 3.8 H (0.5-3.6) ng/ml Troponin I 0.031 0.036 (0-0.045) ng/ml Coagulation 03/21/20 Range/Units 00:10 PT 33.9 H (9.0-12.0) Seconds CBC 03/21/20 Range/Units 00:10 WBC 9.40 (4.8-10.8) K/uL RBC 3.58 L (4.2-5.4) M/uL Hgb 11.7 L (12.0-16.0) g/dL Hct 32.9 L (37-47) % Plt Count 142 (130-400) K/uL Neut # (Auto) 7.95 H (1.4-6.5) K/uL Lymph # (Auto) 0.61 L (1.2-3.4) K/uL [place] # (Auto) 0.77 H (0.11-0.59) K/uL Eos # (Auto) 0.00 (0-0.5) K/uL Baso # (Auto) 0.01 (0-0.2) K/uL Comprehensive Metabolic Panel 03/21/20 03/21/20 Range/Units 00:10 09:26 Sodium 120 L 125 L (136-145) mmol/L Potassium 3.2 L 3.6 (3.5-5.1) mmol/L Chloride 86 L 88 L (98-107) mmol/L Carbon Dioxide 25 28 (21-32) mmol/L BUN 11 9 (7-18) mg/dl Creatinine 0.69 0.63 (0.6-1.2) mg/dl Glucose 157 H 152 H (70-99) mg/dl Calcium 8.6 8.8 (8.5-10.1) mg/dl Direct Bilirubin 1.3 H (0-0.2) mg/dl AST 51 H 44 H (15-37) U/L ALT 35 32 (12-78) U/L Alkaline Phosphatase 144 H 133 H (45-117) U/L Total Protein 7.6 6.9 (6.4-8.2) gm/dl Albumin 3.2 L 2.8 L (3.4-5.0) gm/dl Intake and Output 03/20/20 03/21/20 03/21/20 22:59 06:59 14:59 Intake Total 500 / 500 151.833 / 151.833 Output Total 200 / 200 Balance 300 / 300 151.833 / 151.833 Intake: IV 500 / 500 151.833 / 151.833 MAGNESIUM SULFATE / D5W 1 gm In 100 / 100 100 ml @ 50 mls/hr IV Q2H [facility] Rx#:[id number] NORMAL SALINE w/20 MEQ KCL 20 1.333 / 1.333 meq In 1,000 ml @ 80 mls/hr IV .[id number] [facility] Rx#:[id number] Aqua-Mephyton 5 mg In Nss 50 ml 50.5 / 50.5 @ 101 mls/hr IV ONE ONE Rx#: [id number] Nss 1000ML 500 ml @ 999 mls/hr 500 / 500 IV .Q31M ONE Rx#:[id number] Output: Urine 200 / 200 Other: Other Intake Source Sips Weight 81.193 kg Diagnostic Findings EKG performed 03/21/2020 at 12:10 AM and reviewed independently: Ventricular paced rhythm with one-to-one capture at 63 bpm Transthoracic echocardiogram performed 08/13/2019: There is a septal flattening due to right ventricular pressure/volume overload. The left ventricular ejection fraction is normal at 55 to 60%. Moderate right ventricular chamber dilatation is noted with moderate right ventricular hypokinesis moderate RV systolic dysfunction. And aortic valve mechanical prosthesis is present. The aortic valve prosthesis gradients are appropriate for this prosthesis, mild intra-valvular aortic valve regurgitation noted. Severe pulmonary hypertension is present, with estimated pulmonary systolic pressure of 75 mmHg. Compared to prior report performed at [facility] in January,, the RV chamber dilatation and RV dysfunction was noted at that time, the pulmonary artery systolic pressure was 41 mmHg at that time as compared to 75 on the August 2019 study (1) Atrial fibrillation Atrial fibrillation type: unspecified Qualified Code(s): I48.91 - Unspecified atrial fibrillation
--- NOTE | 2020-03-21 12:40 | Electrocardiogram Report ---
Test Reason : Blood Pressure : / mmHG Vent. Rate : 063 BPM Atrial Rate : 067 BPM P-R Int : 000 ms QRS Dur : 180 ms QT Int : 528 ms P-R-T Axes : 000 -80 106 degrees QTc Int : 540 ms Poor data quality, interpretation may be adversely affected Ventricular-paced rhythm Abnormal ECG When compared with ECG of 12-AUG-2019 22:22, Vent. rate has increased BY 3 BPM Confirmed by Burke Parikh ([id number]) on 03/21/2020 12:40:18 PM Referred By: REFERRED SELF Confirmed By:Peter Parikh
--- NOTE | 2020-03-21 13:53 | Surgery Consultation ---
Date of Consultation March 21, 2020 Assessment & Plan (1) Choledocholithiasis: 89 year-old female with history of afib on Coumadin, aortic valve replacement, chronic diastolic heart failure, severe pulmonary hypertension requiring oxygen at night, hyponatremia who presented to emergency department s/p fall and waxing and waning RUQ abdominal pain with nausea and diarrhea. ER work-up showed gallstones on CT scan with evidence of cirrhotic liver. Ultrasound showing gallstones, mild wall thickening, dilated CBD at 8mm with multiple filling defects in common bile duct. No leukocytosis. Mild elevated in LFTS and alk phos. T. bili 3.3. US equivocal for acute cholecystitis. Plan: Patient is going for ERCP today for choledocholithiasis. Ultrasound is equivocal for acute cholecystitis. Examination shows no guarding or pain in RUQ on palpation. No leukocytosis. Given patients age and multiple comorbidities she is at increased risk for any surgical intervention. Discussed this with patient as she is also concerned about any surgery given her age and medical issues. Discussed will await results of ERCP and follow her closely during this hospitalization. For now will hold of on cholecystectomy as there are no ash signs of acute cholecystitis. Could always consider HIDA scan if patient has persistent RUQ after ERCP to rule out acute cholecystitis Continue medical management (2) Pulmonary hypertension: (3) Atrial fibrillation: (4) Acute on chronic diastolic (congestive) heart failure: Dr. Tobar has seen and examined pt, please see addendum for further recommendations/plan. Supervising Physician Co-Signing Physician Notes Pt seen and examined with YUN Crocker. Agree with history and physical as above. I independently reviewed chart, discussed findings with patient and performed abdominal PE. Currently, will see how she does from ercp/ stent. Option of cholecystectomy discussed but she is higher risk given age and comorbidities. She is not anxious to have surgery unless it is absolutely needed. Dr. Helms to take over care starting Tuesday. History of Present Illness Reason for Consultation: Eval for cholecystectomy Requesting Physician: Breanna Snowden MD Attending Physician: Breanna Snowden MD History of Present Illness Clarisse is a 89 year-old female with history of atrial fibrillation on Coumadin, aortic valve replacement, chronic diastolic congestive heart failure, HTN, hyponatremia, diverticulitis who presented to emergency department today s/p fall 4 hours prior as well as waxing and waning right upper abdominal pain with nausea and diarrhea. She had a CT scan of abdomen and pelvis due to fall and was found to have cholelithiasis and evidence of cirrhotic liver. Ultrasound showed gallstones with mild gallbladder wall thickening and dilated CBD at 8 mm with multiple filling defects. Equivocal pericholecystic fluid, equivocal for acute cholecystitis. Clarisse is scheduled for ERCP today. Our services consulted for evaluation for cholecystectomy. Cardiology was consulted as well. ER work-up showed no leukocytosis. T. bili elevated at 3.3, Direct bilirubin at 1.3, AST mildly elevated at 44, ALT wnl at 32, and Alk phos elevated at 133. Clarisse was seen in [facility] preoperatively prior to her ERCP. She denies of any significant abdominal pain currently just some soreness in the upper abdomen. States she knew she had gallstones when she had her heart surgery in [place] but never had any issues with gallbladder. Mother and sisters had gallbladder removed. Allergies Allergy/AdvReac Type Severity Reaction Status Date / Time Sulfa (Sulfonamide Allergy Intermediate HIVES Verified 03/21/20 02:04 Antibiotics) Home Medications Home Medications Medication Instructions Recorded Confirmed Type furosemide [Lasix] 40 mg PO BID #0 tab 01/17/12 03/21/20 History Centrum Silver Women 1 tab PO DAILY #0 07/31/13 03/21/20 History aspirin [Aspirin Low Dose] 81 mg PO QAM #0 07/31/13 03/21/20 History levothyroxine 75 mcg PO QAM #0 tab 07/31/13 03/21/20 History warfarin 3 mg PO 3XWK #0 tab 07/31/13 03/21/20 History Oxygen Home #0 09/10/13 02/13/19 History lorazepam [Ativan] 0.5 mg PO BID PRN #0 tab 09/10/13 03/21/20 History metoprolol tartrate 100 mg PO BID #0 tab 09/10/13 03/21/20 History amlodipine [Norvasc] 5 mg PO QAM #0 tab 01/16/18 03/21/20 History warfarin 4 mg PO 4XWK 11/29/18 03/21/20 History calcium phosphate-vitamin D3 1 tab PO DAILY 08/12/19 03/21/20 History [Caltrate Gummy Bites] dorzolamide-timolol 1 drp OPHTHALMIC (EYE) AMPM 08/12/19 03/21/20 History losartan 50 mg PO AMPM 08/12/19 03/21/20 History Slow-Mag 1 tab PO TIDM 03/21/20 03/21/20 History cyclosporine [Restasis] 1 drp OPB BID 03/21/20 03/21/20 History potassium chloride 2 tab PO TIDM 03/21/20 03/21/20 History Patient History Medical History (Updated 03/21/20 @ 14:39 by Keith Orantes MD) Adult hypothyroidism Atrial fibrillation CHF (congestive heart failure) Choledocholithiasis Chronic hyponatremia HTN (hypertension) Pacemaker Pulmonary hypertension severe Thyroid disease Surgical History Aortic valve replaced H/O mechanical aortic valve replacement History of colonoscopy 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 Status post Mohs surgery Family History Brother Cancer Sister Cancer Social History Smoking Status: Never smoker Tobacco Type: Cigarettes Second Hand Exposure: No; Hx Alcohol Use: No Hx Substance Use: No Preferred Language: French Communication Ability: Effective Home Appraiser Required: No Beliefs That Will Affect Care: None marital status: / Current Living Situation: Alone How many Children do You have: 2 Other Information That Helps Us Care for You: No Feels Safe at Home: Yes Safety Concerns: Feels Safe At This Time Review of Systems Review of Systems: All systems reviewed & are unremarkable except as noted in HPI & below Physical Exam Constitutional: WD/WN, vitals as above no acute distress and not ill appearing Eyes: +icteric Respiratory: normal respiratory effort, lungs clear to auscultation Cardiovascular: RRR, no murmur, no edema Gastrointestinal (Abdomen): Inspection/Auscultation: abdomen normal to inspection and normal bowel sounds; abdomen not distended Percussion/Palpation: + abdomen tender (very mild in epigastrium) and abdomen so ft; no guarding and abdomen not rigid Skin: no rashes, warm and dry + jaundice Psychiatric: A+Ox3, euthymic affect Results & Data ([facility]) Vital Signs (Past 12 Hours) Vital Signs Temp Pulse Pulse Resp BP BP Pulse Ox 03/21/20 11:31 36.5 C 90 18 145/64 H 97 03/21/20 10:36 36.6 C 60 16 145/66 H 94 03/21/20 10:30 36.4 C L 60 16 152/68 H 95 03/21/20 10:00 36.1 C L 60 16 149/68 H 92 03/21/20 07:28 36.4 C L 60 20 150/65 H 95 03/21/20 07:00 60 03/21/20 04:32 60 03/21/20 04:17 36.8 C 60 24 178/66 H 92 03/21/20 02:30 60 20 173/59 H 94 03/21/20 02:18 60 15 162/66 H 94 Laboratory Results 03/21/20 03/21/20 03/21/20 Range/Units 13:44 12:15 12:15 WBC (4.8-10.8) K/uL RBC (4.2-5.4) M/uL Hgb (12.0-16.0) g/dL Hct (37-47) % MCV (80-100) fL MCH (25-34) pg MCHC (32-36) g/dL RDW Std Deviation (36.4-46.3) fL RDW Coeff of Sia (11.5-14.5) % Plt Count (130-400) K/uL MPV (7.4-10.4) fL Immature Gran % (Auto) % Neut % (Auto) % Lymph % (Auto) % [place] % (Auto) % Eos % (Auto) % Baso % (Auto) % Neut # (Auto) (1.4-6.5) K/uL Lymph # (Auto) (1.2-3.4) K/uL [place] # (Auto) (0.11-0.59) K/uL Eos # (Auto) (0-0.5) K/uL Baso # (Auto) (0-0.2) K/uL Immature Gran # (Auto) (0.00-0.02) K/uL PT Pending (9.0-12.0) Seconds INR Pending (0.9-1.1) Sodium (136-145) mmol/L Potassium (3.5-5.1) mmol/L Chloride (98-107) mmol/L Carbon Dioxide (21-32) mmol/L Anion Gap (3-11) BUN (7-18) mg/dl Creatinine (0.6-1.2) mg/dl Est Cr Clr Drug Dosing ml/min Est GFR ( Amer) Est GFR (Non-Af Amer) BUN/Creatinine Ratio (10-20) Glucose (70-99) mg/dl Osmolality (280-300) mOsm/kg Calcium (8.5-10.1) mg/dl Phosphorus (2.5-4.9) mg/dl Magnesium (1.8-2.4) mg/dl Total Bilirubin (0.2-1) mg/dl Direct Bilirubin (0-0.2) mg/dl AST (15-37) U/L ALT (12-78) U/L Alkaline Phosphatase (45-117) U/L Total Creatine Kinase (26-192) U/L CK-MB (CK-2) (0.5-3.6) ng/ml CK/CKMB % Calc (0-3.0) Troponin I (0-0.045) ng/ml Total Protein (6.4-8.2) gm/dl Albumin (3.4-5.0) gm/dl Globulin (2.5-4.0) gm/dl Albumin/Globulin Ratio (0.9-2) TSH (0.300-4.500) uIu/ml Random Cortisol mcg/dl Urine Color Urine Appearance (Clear) Urine pH (4.5-7.5) Ur Specific [place] (1.000-1.030) Urine Protein (Negative) Urine Glucose (UA) (Negative) Urine Ketones (Negative) Urine Blood (Negative) Urine Nitrite (Negative) Urine Bilirubin (Negative) Urine Urobilinogen (Negative) Ur Leukocyte Esterase (Negative) Urine WBC (Auto) (0-5) /hpf Urine RBC (Auto) (0-4) /hpf U Hyaline Cast (Auto) (0-5) /lpf U Epithel Cells (Auto) (0-5) /lpf Urine Bacteria (Auto) (Negative) Urine Osmolality 339 L (500-800) mOsm/kg Ur Random Sodium mmol/L COVID-19 Eval Order COVID-19 PCR NEGATIVE (Negative) 03/21/20 03/21/20 03/21/20 Range/Units 12:15 12:15 09:26 WBC (4.8-10.8) K/uL RBC (4.2-5.4) M/uL Hgb (12.0-16.0) g/dL Hct (37-47) % MCV (80-100) fL MCH (25-34) pg MCHC (32-36) g/dL RDW Std Deviation (36.4-46.3) fL RDW Coeff of Sia (11.5-14.5) % Plt Count (130-400) K/uL MPV (7.4-10.4) fL Immature Gran % (Auto) % Neut % (Auto) % Lymph % (Auto) % [place] % (Auto) % Eos % (Auto) % Baso % (Auto) % Neut # (Auto) (1.4-6.5) K/uL Lymph # (Auto) (1.2-3.4) K/uL [place] # (Auto) (0.11-0.59) K/uL Eos # (Auto) (0-0.5) K/uL Baso # (Auto) (0-0.2) K/uL Immature Gran # (Auto) (0.00-0.02) K/uL PT (9.0-12.0) Seconds INR (0.9-1.1) Sodium 125 L (136-145) mmol/L Potassium 3.6 (3.5-5.1) mmol/L Chloride 88 L (98-107) mmol/L Carbon Dioxide 28 (21-32) mmol/L Anion Gap 9.0 (3-11) BUN 9 (7-18) mg/dl Creatinine 0.63 (0.6-1.2) mg/dl Est Cr Clr Drug Dosing 65.0 ml/min Est GFR ( Amer) 92.8 Est GFR (Non-Af Amer) 80.1 BUN/Creatinine Ratio 14.2 (10-20) Glucose 152 H (70-99) mg/dl Osmolality (280-300) mOsm/kg Calcium 8.8 (8.5-10.1) mg/dl Phosphorus (2.5-4.9) mg/dl Magnesium (1.8-2.4) mg/dl Total Bilirubin 3.3 H (0.2-1) mg/dl Direct Bilirubin 1.3 H (0-0.2) mg/dl AST 44 H (15-37) U/L ALT 32 (12-78) U/L Alkaline Phosphatase 133 H (45-117) U/L Total Creatine Kinase (26-192) U/L CK-MB (CK-2) (0.5-3.6) ng/ml CK/CKMB % Calc (0-3.0) Troponin I (0-0.045) ng/ml Total Protein 6.9 (6.4-8.2) gm/dl Albumin 2.8 L (3.4-5.0) gm/dl Globulin (2.5-4.0) gm/dl Albumin/Globulin Ratio (0.9-2) TSH (0.300-4.500) uIu/ml Random Cortisol mcg/dl Urine Color Urine Appearance (Clear) Urine pH (4.5-7.5) Ur Specific [place] (1.000-1.030) Urine Protein (Negative) Urine Glucose (UA) (Negative) Urine Ketones (Negative) Urine Blood (Negative) Urine Nitrite (Negative) Urine Bilirubin (Negative) Urine Urobilinogen (Negative) Ur Leukocyte Esterase (Negative) Urine WBC (Auto) (0-5) /hpf Urine RBC (Auto) (0-4) /hpf U Hyaline Cast (Auto) (0-5) /lpf U Epithel Cells (Auto) (0-5) /lpf Urine Bacteria (Auto) (Negative) Urine Osmolality (500-800) mOsm/kg Ur Random Sodium 22 mmol/L COVID-19 Eval Order Covid19 Done at [facility] COVID-19 PCR (Negative) 03/21/20 03/21/20 03/21/20 Range/Units 05:16 05:16 05:16 WBC (4.8-10.8) K/uL RBC (4.2-5.4) M/uL Hgb (12.0-16.0) g/dL Hct (37-47) % MCV (80-100) fL MCH (25-34) pg MCHC (32-36) g/dL RDW Std Deviation (36.4-46.3) fL RDW Coeff of Sia (11.5-14.5) % Plt Count (130-400) K/uL MPV (7.4-10.4) fL Immature Gran % (Auto) % Neut % (Auto) % Lymph % (Auto) % [place] % (Auto) % Eos % (Auto) % Baso % (Auto) % Neut # (Auto) (1.4-6.5) K/uL Lymph # (Auto) (1.2-3.4) K/uL [place] # (Auto) (0.11-0.59) K/uL Eos # (Auto) (0-0.5) K/uL Baso # (Auto) (0-0.2) K/uL Immature Gran # (Auto) (0.00-0.02) K/uL PT (9.0-12.0) Seconds INR (0.9-1.1) Sodium (136-145) mmol/L Potassium (3.5-5.1) mmol/L Chloride (98-107) mmol/L Carbon Dioxide (21-32) mmol/L Anion Gap (3-11) BUN (7-18) mg/dl Creatinine (0.6-1.2) mg/dl Est Cr Clr Drug Dosing ml/min Est GFR ( Amer) Est GFR (Non-Af Amer) BUN/Creatinine Ratio (10-20) Glucose (70-99) mg/dl Osmolality 261 L (280-300) mOsm/kg Calcium (8.5-10.1) mg/dl Phosphorus 3.1 (2.5-4.9) mg/dl Magnesium 1.4 L (1.8-2.4) mg/dl Total Bilirubin (0.2-1) mg/dl Direct Bilirubin (0-0.2) mg/dl AST (15-37) U/L ALT (12-78) U/L Alkaline Phosphatase (45-117) U/L Total Creatine Kinase (26-192) U/L CK-MB (CK-2) (0.5-3.6) ng/ml CK/CKMB % Calc (0-3.0) Troponin I 0.036 (0-0.045) ng/ml Total Protein (6.4-8.2) gm/dl Albumin (3.4-5.0) gm/dl Globulin (2.5-4.0) gm/dl Albumin/Globulin Ratio (0.9-2) TSH (0.300-4.500) uIu/ml Random Cortisol mcg/dl Urine Color Urine Appearance (Clear) Urine pH (4.5-7.5) Ur Specific [place] (1.000-1.030) Urine Protein (Negative) Urine Glucose (UA) (Negative) Urine Ketones (Negative) Urine Blood (Negative) Urine Nitrite (Negative) Urine Bilirubin (Negative) Urine Urobilinogen (Negative) Ur Leukocyte Esterase (Negative) Urine WBC (Auto) (0-5) /hpf Urine RBC (Auto) (0-4) /hpf U Hyaline Cast (Auto) (0-5) /lpf U Epithel Cells (Auto) (0-5) /lpf Urine Bacteria (Auto) (Negative) Urine Osmolality (500-800) mOsm/kg Ur Random Sodium mmol/L COVID-19 Eval Order COVID-19 PCR (Negative) 03/21/20 03/21/20 03/21/20 Range/Units 00:10 00:10 00:10 WBC (4.8-10.8) K/uL RBC (4.2-5.4) M/uL Hgb (12.0-16.0) g/dL Hct (37-47) % MCV (80-100) fL MCH (25-34) pg MCHC (32-36) g/dL RDW Std Deviation (36.4-46.3) fL RDW Coeff of Sia (11.5-14.5) % Plt Count (130-400) K/uL MPV (7.4-10.4) fL Immature Gran % (Auto) % Neut % (Auto) % Lymph % (Auto) % [place] % (Auto) % Eos % (Auto) % Baso % (Auto) % Neut # (Auto) (1.4-6.5) K/uL Lymph # (Auto) (1.2-3.4) K/uL [place] # (Auto) (0.11-0.59) K/uL Eos # (Auto) (0-0.5) K/uL Baso # (Auto) (0-0.2) K/uL Immature Gran # (Auto) (0.00-0.02) K/uL PT (9.0-12.0) Seconds INR (0.9-1.1) Sodium 120 L (136-145) mmol/L Potassium 3.2 L (3.5-5.1) mmol/L Chloride 86 L (98-107) mmol/L Carbon Dioxide 25 (21-32) mmol/L Anion Gap 9.0 (3-11) BUN 11 (7-18) mg/dl Creatinine 0.69 (0.6-1.2) mg/dl Est Cr Clr Drug Dosing 63.7 ml/min Est GFR ( Amer) 90.1 Est GFR (Non-Af Amer) 77.7 BUN/Creatinine Ratio 15.7 (10-20) Glucose 157 H (70-99) mg/dl Osmolality (280-300) mOsm/kg Calcium 8.6 (8.5-10.1) mg/dl Phosphorus (2.5-4.9) mg/dl Magnesium (1.8-2.4) mg/dl Total Bilirubin 4.7 H (0.2-1) mg/dl Direct Bilirubin (0-0.2) mg/dl AST 51 H (15-37) U/L ALT 35 (12-78) U/L Alkaline Phosphatase 144 H (45-117) U/L Total Creatine Kinase 161 (26-192) U/L CK-MB (CK-2) 3.8 H (0.5-3.6) ng/ml CK/CKMB % Calc 2.4 (0-3.0) Troponin I 0.031 (0-0.045) ng/ml Total Protein 7.6 (6.4-8.2) gm/dl Albumin 3.2 L (3.4-5.0) gm/dl Globulin 4.4 H (2.5-4.0) gm/dl Albumin/Globulin Ratio 0.7 L (0.9-2) TSH 2.110 (0.300-4.500) uIu/ml Random Cortisol 54.28 mcg/dl Urine Color Yellow Urine Appearance Cloudy A (Clear) Urine pH 7.5 (4.5-7.5) Ur Specific [place] 1.009 (1.000-1.030) Urine Protein Negative (Negative) Urine Glucose (UA) Negative (Negative) Urine Ketones Negative (Negative) Urine Blood Negative (Negative) Urine Nitrite Negative (Negative) Urine Bilirubin Negative (Negative) Urine Urobilinogen Negative (Negative) Ur Leukocyte Esterase Trace H (Negative) Urine WBC (Auto) 1-5 (0-5) /hpf Urine RBC (Auto) 0-4 (0-4) /hpf U Hyaline Cast (Auto) 0 (0-5) /lpf U Epithel Cells (Auto) 10-20 H (0-5) /lpf Urine Bacteria (Auto) Negative (Negative) Urine Osmolality (500-800) mOsm/kg Ur Random Sodium mmol/L COVID-19 Eval Order COVID-19 PCR (Negative) 03/21/20 03/21/20 Range/Units 00:10 00:10 WBC 9.40 (4.8-10.8) K/uL RBC 3.58 L (4.2-5.4) M/uL Hgb 11.7 L (12.0-16.0) g/dL Hct 32.9 L (37-47) % MCV 91.9 (80-100) fL MCH 32.7 (25-34) pg MCHC 35.6 (32-36) g/dL RDW Std Deviation 51.5 H (36.4-46.3) fL RDW Coeff of Sia 15.6 H (11.5-14.5) % Plt Count 142 (130-400) K/uL MPV 9.4 (7.4-10.4) fL Immature Gran % (Auto) 0.6 % Neut % (Auto) 84.6 % Lymph % (Auto) 6.5 % [place] % (Auto) 8.2 % Eos % (Auto) 0.0 % Baso % (Auto) 0.1 % Neut # (Auto) 7.95 H (1.4-6.5) K/uL Lymph # (Auto) 0.61 L (1.2-3.4) K/uL [place] # (Auto) 0.77 H (0.11-0.59) K/uL Eos # (Auto) 0.00 (0-0.5) K/uL Baso # (Auto) 0.01 (0-0.2) K/uL Immature Gran # (Auto) 0.06 H (0.00-0.02) K/uL PT 33.9 H (9.0-12.0) Seconds INR 3.4 H (0.9-1.1) Sodium (136-145) mmol/L Potassium (3.5-5.1) mmol/L Chloride (98-107) mmol/L Carbon Dioxide (21-32) mmol/L Anion Gap (3-11) BUN (7-18) mg/dl Creatinine (0.6-1.2) mg/dl Est Cr Clr Drug Dosing ml/min Est GFR ( Amer) Est GFR (Non-Af Amer) BUN/Creatinine Ratio (10-20) Glucose (70-99) mg/dl Osmolality (280-300) mOsm/kg Calcium (8.5-10.1) mg/dl Phosphorus (2.5-4.9) mg/dl Magnesium (1.8-2.4) mg/dl Total Bilirubin (0.2-1) mg/dl Direct Bilirubin (0-0.2) mg/dl AST (15-37) U/L ALT (12-78) U/L Alkaline Phosphatase (45-117) U/L Total Creatine Kinase (26-192) U/L CK-MB (CK-2) (0.5-3.6) ng/ml CK/CKMB % Calc (0-3.0) Troponin I (0-0.045) ng/ml Total Protein (6.4-8.2) gm/dl Albumin (3.4-5.0) gm/dl Globulin (2.5-4.0) gm/dl Albumin/Globulin Ratio (0.9-2) TSH (0.300-4.500) uIu/ml Random Cortisol mcg/dl Urine Color Urine Appearance (Clear) Urine pH (4.5-7.5) Ur Specific [place] (1.000-1.030) Urine Protein (Negative) Urine Glucose (UA) (Negative) Urine Ketones (Negative) Urine Blood (Negative) Urine Nitrite (Negative) Urine Bilirubin (Negative) Urine Urobilinogen (Negative) Ur Leukocyte Esterase (Negative) Urine WBC (Auto) (0-5) /hpf Urine RBC (Auto) (0-4) /hpf U Hyaline Cast (Auto) (0-5) /lpf U Epithel Cells (Auto) (0-5) /lpf Urine Bacteria (Auto) (Negative) Urine Osmolality (500-800) mOsm/kg Ur Random Sodium mmol/L COVID-19 Eval Order COVID-19 PCR (Negative) Diagnostic Findings CT SCAN OF THE CHEST, ABDOMEN, AND PELVIS WITH IV CONTRAST; CT SCAN OF THE THORACIC SPINE WITHOUT IV CONTRAST; CT SCAN OF THE LUMBAR SPINE WITHOUT IV CONTRAST CLINICAL HISTORY: Fall. Back pain. COMPARISON STUDY: Chest CT dated 10/25/2011. Abdominal CT dated 08/12/2019. TECHNIQUE: Following the IV administration of 92 of Optiray 320, CT scan of the chest, abdomen, and pelvis was performed from the thoracic inlet to the proximal femora. Images are reviewed in the axial, sagittal, and coronal planes. IV contrast was administered without complication. Additionally, unenhanced CT scan of the thoracic spine is performed from the lower cervical spine to the upper lumbar spine and unenhanced CT scan of lumbar spine is performed from the lower thoracic spine to the sacrum. The thoracic and lumbar spinal CT scans are reviewed in the axial, sagittal, and coronal planes. IV contrast was not administered specifically for the spinal CTs. A dose lowering technique was utilized adhering to the principles of ALARA. The examination is degraded by motion artifact, as well as by streak artifact from the arms which could not be elevated above the chest or abdomen. CT DOSE: 2392.90 mGy.cm FINDINGS: CHEST: Thyroid: Imaged portions of the thyroid gland are normal in size and heterogeneous in attenuation. Thoracic aorta: There is atherosclerotic calcification of the thoracic aorta. Postoperative changes noted involving the proximal thoracic aorta. There is mild aneurysmal dilatation of the ascending thoracic aorta which measures 4.7 cm. The arch demonstrates bovine variant anatomy. There is ectasia of the innominate artery which measures up to 2.7 cm. The arch vessels are patent. No dissection is seen. Pulmonary vasculature: The main pulmonary arteries are dilated suggesting pulmonary artery hypertension. There are no filling defects identified in the central pulmonary vessels to indicate pulmonary embolus. Note that this examination was not protocoled for evaluation of the pulmonary arteries. Heart: The patient is status post midline sternotomy. There is evidence of previous cardiac valve surgery. A cardiac AICD is present in the left chest wall. The heart is enlarged and without pericardial effusion. The coronary arteries are densely calcified. Lungs and pleural spaces: Evaluation of the lung parenchyma is degraded by motion artifact. Question mild emphysematous change. There are trace pleural effusions. There is mild diffuse intralobular septal thickening. Subpleural reticulation is noted in the lower lobes. There is bibasilar scarring/atelectasis. No airspace consolidation is seen typical for pneumonia. There is no pneumothorax. Loculated fluid is noted on the right major fissure. There are scattered calcified granulomas. A 2 mm nodule in the lingula on image #128 is unchanged from 2012, as is a 3 mm right upper lobe nodule on image #86. These are of doubtful significance. Mediastinum: There is no mediastinal hematoma or lymphadenopathy. Joy: Clear. Axillae: There is no axillary lymphadenopathy. Bony thorax: The skeletal structures are osteopenic. See below for dedicated assessment of the thoracic spine. No lytic or blastic lesions are identified. There are age indeterminant left anterolateral 5th through 7th rib fractures. Advanced arthritic changes seen in the shoulders with calcified joint bodies on the right. THORACIC SPINE: There is subtle fracture through the anterior aspect of the T10 vertebral body, best seen on sagittal image #38. This extends to the disc space, with no clear involvement of the posterior elements. No additional acute fracture is identified involving the thoracic spine. There is a mild to moderate chronic compression deformity of T12. Vertebral body height is otherwise maintained throughout the thoracic spine. Anterior osteophytes are seen throughout. The transverse and spinous processes are intact. There is multilevel degenerative disc space narrowing. The central canal is grossly clear. The paraspinous soft tissues are normal in appearance. ABDOMEN AND PELVIS: Liver: Evaluation of the liver is significantly degraded by streak artifact. The contrast-enhanced liver is cirrhotic in morphology and heterogeneous in attenuation. There is nodularity of the hepatic surface contour. There is no intrahepatic biliary ductal dilatation. The hepatic veins and portal veins are patent. Mild periportal edema is noted. Gallbladder: There are numerous gallstones with no CT evidence of acute cholecystitis. Spleen: Normal in size and attenuation. Pancreas: Moderately atrophic and grossly unremarkable. Adrenal glands: Unremarkable. Kidneys: The contrast enhanced kidneys demonstrate cortical atrophy and are without hydronephrosis. The kidneys enhance symmetrically. Abdominal vasculature: The abdominal aorta is normal in course and caliber noting advanced atherosclerotic calcification. Stomach and bowel: There is a small hiatal hernia there is moderate colonic diverticulosis without CT evidence of acute diverticulitis. No bowel obstruction is seen. The appendix is well-visualized and normal. Peritoneum: There is trace perihepatic and perisplenic ascites. No intraperitoneal free air is seen. There is a small fat-containing umbilical hernia. Lymphadenopathy: None. Pelvic viscera: The bladder is distended but otherwise normal in appearance. The endometrium appears thickened for age measuring up to 14 mm in thickness. No adnexal lesion is identified. There is nonspecific presacral stranding. Skeletal structures: The skeletal structures are osteopenic. The bony pelvis and proximal femora appear intact. See below for dedicated assessment of the lumbar spine. A large hemangioma is noted in the body of L1. No lytic or blastic lesions are seen. LUMBAR SPINE: There are moderate chronic compression deformities of L3 and L4. Vertebral body height is otherwise maintained throughout the lumbar spine. There is minimal retrolisthesis at L2-L3 and L3-L4. Alignment is otherwise preserved. Anterior and lateral marginal osteophytes are seen throughout. There is straightening of the lumbar lordosis. The transverse and spinous processes are intact. There is no evidence of spondylolysis. Moderate to advanced disc space narrowing is seen at all lumbar levels, greatest at L1-L2 and L2-L3. Posterior disc osteophyte complexes are seen at all lumbar levels and likely contribute to multilevel acquired compromise of the central canal. This is greatest at L2-L3 and L3-L4. Advanced facet arthropathy is seen in the lower lumbar spine. This contributes to multilevel bilateral neural foraminal stenosis. There is fatty atrophy of the paraspinous musculature. IMPRESSION: 1. There are age indeterminant left anterolateral rib fractures as above. Correlate for point tenderness. 2. Marked cardiomegaly. Intralobular septal thickening suggests acute versus chronic congestive change. Clinical correlation will be required. 3. There are trace pleural effusions with loculated fluid noted along the right major fissure. 4. There is no airspace consolidation or pneumothorax. 5. There is a subtle horizontally oriented fracture through the anterior endplate of the T10 vertebral body which extends to the T10-T11 disc space. There is no clear involvement of the posterior elements. 6. No additional fracture is identified involving the thoracic spine. 7. There is no evidence of fracture or malalignment involving the lumbar spine. 8. There is no evidence of solid organ injury in the abdomen or pelvis. 9. Cirrhotic liver morphology. 10. The endometrium appears thickened for age measuring up to 14 mm in thickness. This is not well identified by CT, and gynecology follow-up and nonemergent pelvic ultrasound is recommended for further assessment. 11. Moderate colonic diverticulosis without CT evidence of acute diverticulitis. 12. Cholelithiasis. 13. Trace abdominal ascites. 14. Postoperative change is noted in the involving the thoracic aorta. There is mild aneurysmal dilatation of the ascending thoracic aorta which measures up to 4.7 cm. There is also ectasia of the innominate artery. 15. Additional findings as above. US abdomen limited HISTORY: 89 years-old Female Pt c/o RUQ abd pain acute right upper quadrant abdominal pain COMPARISON: CT abdomen and pelvis of same day TECHNIQUE: Multiple real-time sonographic images of the abdominal right upper quadrant were obtained assessing grayscale appearance and color flow FINDINGS: Visualized pancreas is unremarkable. Diffusely heterogeneous appearance of the liver. Trace perihepatic ascites. Cholelithiasis with posterior acoustic shadowing. There is mild gallbladder wall thickening. The sonographic Kramer sign was unable to be assessed secondary to recent pain medication administered to the patient. No significant gallbladder distention. Common bile duct is mildly dilated measuring up to 8 mm. There are numerous filling defects within the common bile duct measuring up to 5 mm. Imaged right kidney is unremarkable without hydronephrosis. IMPRESSION: 1. Cholelithiasis and gallbladder wall thickening is noted. No significant gallbladder distention. There is however trace perihepatic ascites. Findings are equivocal for acute cholecystitis. This finding could be correlated with nuclear medicine hepatobiliary scan. 2. Choledocholithiasis with the common bile duct measuring within the upper limits of normal for patient age. No intrahepatic biliary ductal dilation. (1) Atrial fibrillation Atrial fibrillation type: unspecified Qualified Code(s): I48.91 - Unspecified atrial fibrillation
[2020-03-21 14:09] LABS: INR 1.3 (0.9-1.1); Prothrombin Time 13.8 Seconds (9.0-12.0)
--- NOTE | 2020-03-21 14:35 | Anesthesiology Consultation ---
Date of Service March 21, 2020 Assessment & Plan (1) Encounter for pre-operative examination: Chart Review Chart Review: Acceptable Risk for Surgery History Surgery Operation Date: 03/21/20 14:35 Proposed Procedures p Endoscopic Retrograde Cholangiopancreatogram - Francesca Mendoza MD Height/Weight Height: 5 ft 5 in Weight: 81.193 kg Allergies Allergy/AdvReac Type Severity Reaction Status Date / Time Sulfa (Sulfonamide Allergy Intermediate HIVES Verified 03/21/20 02:04 Antibiotics) Medications Home Medications Medication Instructions Recorded Confirmed Last Taken furosemide [Lasix] 40 mg PO BID #0 tab 01/17/12 03/21/20 03/20/20 Centrum Silver Women 1 tab PO DAILY #0 07/31/13 03/21/20 03/20/20 12:00 aspirin [Aspirin Low Dose] 81 mg PO QAM #0 07/31/13 03/21/20 03/20/20 08:00 levothyroxine 75 mcg PO QAM #0 tab 07/31/13 03/21/20 03/20/20 06:00 warfarin 3 mg PO 3XWK #0 tab 07/31/13 03/21/20 03/20/20 18:00 Oxygen Home #0 09/10/13 02/13/19 Unknown lorazepam [Ativan] 0.5 mg PO BID PRN #0 tab 09/10/13 03/21/20 Unknown metoprolol tartrate 100 mg PO BID #0 tab 09/10/13 03/21/20 03/20/20 18:00 amlodipine [Norvasc] 5 mg PO QAM #0 tab 01/16/18 03/21/20 03/20/20 08:00 warfarin 4 mg PO 4XWK 11/29/18 03/21/20 03/19/20 18:00 calcium phosphate-vitamin D3 1 tab PO DAILY 08/12/19 03/21/20 03/20/20 12:00 [Caltrate Gummy Bites] dorzolamide-timolol 1 drp OPHTHALMIC (EYE) AMPM 08/12/19 03/21/20 03/20/20 losartan 50 mg PO AMPM 08/12/19 03/21/20 03/20/20 18:00 Slow-Mag 1 tab PO TIDM 03/21/20 03/21/20 03/20/20 cyclosporine [Restasis] 1 drp OPB BID 03/21/20 03/21/20 Unknown potassium chloride 2 tab PO TIDM 03/21/20 03/21/20 03/20/20 Active Medications Generic Name Dose Route Start Last Admin Trade Name [place] PRN Reason Stop Dose Admin Amlodipine Besylate 5 mg 03/21/20 09:00 03/21/20 08:24 Amlodipine Besylate 5 Mg Tab PO 04/20/20 08:59 5 mg QAM ENDER Administration Aspirin 81 mg 03/21/20 09:00 03/21/20 08:25 Aspirin 81 Mg Ectab PO 04/20/20 08:59 81 mg QAM ENDER Administration Dorzolamide/Timolol 1 drops 03/21/20 09:00 03/21/20 08:26 Dorzolamide/Timolol 22.3/6.8mg/Ml 10 Ml Btl OP 04/20/20 08:59 1 drops BID ENDER Administration Potassium Chloride/Sodium Chloride 20 meq in 1,000 mls @ 80 mls/hr 03/21/20 09:15 03/21/20 10:10 Normal Saline W/20 Meq Kcl IV 04/20/20 09:14 0 mls/hr .[id number] ENDER Infusion Levothyroxine Sodium 75 mcg 03/21/20 06:30 03/21/20 05:58 Levothyroxine Sodium 75 Mcg Tablet PO 04/20/20 06:29 75 mcg DAILYBB ENDER Administration Losartan Potassium 50 mg 03/21/20 09:00 03/21/20 08:25 Losartan Potassium 50 Mg Tab PO 04/20/20 08:59 50 mg BID ENDER Administration Metoprolol Tartrate 100 mg 03/21/20 09:00 03/21/20 08:24 Metoprolol Tartrate 100 Mg Tab PO 04/20/20 08:59 100 mg BID ENDER Administration Multivitamins/Minerals 1 tab 03/21/20 09:00 03/21/20 09:00 Calcium 600mg + Vit D 400 Iu Tab PO 04/20/20 08:59 Not Given DAILY ENDER Past Medical History Medical History (Updated 03/21/20 @ 14:39 by Keith Orantes MD) Adult hypothyroidism Atrial fibrillation CHF (congestive heart failure) Choledocholithiasis Chronic hyponatremia HTN (hypertension) Pacemaker Pulmonary hypertension severe Thyroid disease Past Family History Family History Brother Cancer Sister Cancer Past Surgical History Surgical History Aortic valve replaced H/O mechanical aortic valve replacement History of colonoscopy 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 Status post Mohs surgery Social History Smoking Status: Never smoker Hx Alcohol Use: No alcohol intake frequency: 0-2 drinks per day Hx Substance Use: No substance use type: does not use Physical Exam Vital Signs Last Vital Signs Temp 36.5 C 03/21/20 11:31 Pulse 90 03/21/20 11:31 Resp 18 03/21/20 11:31 BP 145/64 H 03/21/20 11:31 Pulse Ox 97 03/21/20 11:31 Testing Laboratory Results 03/21/20 00:10 03/21/20 09:26 PT 13.8 Seconds (9.0-12.0) H 03/21/20 13:44 INR 1.3 (0.9-1.1) H 03/21/20 13:44 Urine Color Yellow 03/21/20 00:10 Urine Appearance Cloudy (Clear) A 03/21/20 00:10 Urine pH 7.5 (4.5-7.5) 03/21/20 00:10 Ur Specific [place] 1.009 (1.000-1.030) 03/21/20 00:10 Urine Protein Negative (Negative) 03/21/20 00:10 Urine Glucose (UA) Negative (Negative) 03/21/20 00:10 Urine Ketones Negative (Negative) 03/21/20 00:10 Urine Nitrite Negative (Negative) 03/21/20 00:10 Ur Leukocyte Esterase Trace (Negative) H 03/21/20 00:10 Urine WBC (Auto) 1-5 /hpf (0-5) 03/21/20 00:10 Urine RBC (Auto) 0-4 /hpf (0-4) 03/21/20 00:10 U Hyaline Cast (Auto) 0 /lpf (0-5) 03/21/20 00:10 U Epithel Cells (Auto) 10-20 /lpf (0-5) H 03/21/20 00:10 Urine Bacteria (Auto) Negative (Negative) 03/21/20 00:10 Electrocardiogram Date: 03/21/20 paced rhythm Echocardiogram Date: 08/13/19 EF: 55-60 LV Function: normal moderate RV dysfunction, severe pulmonary hypertension
--- NOTE | 2020-03-21 14:39 | History & Physical Bridge Note ---
Date of Service March 21, 2020 History & Physical Bridge Note I have examined the patient, reviewed the History & Physical and in the interval since the performance of the History & Physical I have noted the following changes of clinical significance: no changes noted
[2020-03-21] MEDS ORDERED: INDOMETHACIN 50 MG SUPP PR ONE (14:55)
[2020-03-21] MEDS ORDERED: PROPOFOL IV EMULSION 10 MG/ML 20 ML VIAL IV ONE (15:29)
[2020-03-21] MEDS ORDERED: LIDOCAINE HCL 2% 2 ML VIAL/AMP(20MG/ML) INFIL ONE (15:30)
[2020-03-21] MEDS ORDERED: ATROPINE SULFATE 0.1 MG/ML 10ML SYR IV PRN (15:39)
[2020-03-21] MEDS ORDERED: ePHEDrine sulfate 50 MG/ML AMP IV PRN (15:39)
[2020-03-21] MEDS ORDERED: fentaNYL citrate 100 MCG/2 ML VIAL IV PRN (15:39)
[2020-03-21] MEDS ORDERED: IOVERSOL 50ml IV ONE (15:52)
[2020-03-21] MEDS ORDERED: WARFARIN SOD 4 MG TAB PO SCH (16:00)
[2020-03-21] MEDS ORDERED: ONDANSETRON INJ 2 MG/ML 2 ML VIAL ONE (16:39)
--- NOTE | 2020-03-21 16:42 | Operative Report ---
Post Operative Report Pre & Post Diagnosis Operation Date: 03/21/20 14:35 <No data on this case meets the specified criteria> I identified the patient and participated in the time-out.: Yes Procedure Operation Date: 03/21/20 14:35 <No data on this case meets the specified criteria> Surgeon Francesca Mendoza MD Director Business Travel None Estimated Blood Loss 0 Findings See Below (CBD stones removed) Specimens None Description of Procedure ERCP I attest to the content of the Intraoperative Record and any orders documented therein. Any exceptions are noted below.
--- NOTE | 2020-03-21 17:07 | Fluoroscopy Report ---
[place] ERCP biliary ductal CLINICAL HISTORY: EXPLORE DUCTS COMPARISON STUDY: CT of the abdomen and pelvis and right upper quadrant ultrasound performed earlier today. FLUOROSCOPY TIME: 55 seconds. FLUOROSCOPIC IMAGES: 11 FINDINGS: Fluoroscopy was provided during ERCP. Common bile duct is cannulated. Balloon sweep through the common bile duct was performed. Filling defects within the common bile duct may reflect stones. There are stones within the gallbladder. IMPRESSION: Fluoroscopy provided during ERCP. ACT 112: Negative or not required by law. Electronically signed by: Stephane Mayer M.D. 03/21/2020 5:05 PM
--- NOTE | 2020-03-21 17:17 | Anesthesiology Progress Note ---
Date of Service March 21, 2020 Anesthesia Post Procedure Vital Signs Vital Signs: Temp Pulse Pulse Pulse Resp BP BP 03/21/20 17:09 60 20 164/62 H 03/21/20 17:00 60 21 153/64 H 03/21/20 16:50 96.8 F L 60 16 147/57 H 03/21/20 14:44 98.1 F 61 18 162/68 H 03/21/20 14:35 97.9 F 61 18 155/64 H 03/21/20 14:20 61 03/21/20 11:31 97.7 F 90 18 145/64 H 03/21/20 10:36 97.9 F 60 16 145/66 H 03/21/20 10:30 97.5 F L 60 16 152/68 H 03/21/20 10:00 97.0 F L 60 16 149/68 H 03/21/20 07:28 97.5 F L 60 20 150/65 H 03/21/20 07:00 60 03/21/20 04:32 60 03/21/20 04:17 98.2 F 60 24 178/66 H 03/21/20 02:30 60 20 173/59 H 03/21/20 02:18 60 15 162/66 H 03/21/20 00:30 62 21 170/66 H 03/21/20 00:27 03/21/20 00:10 98.6 F 67 20 177/70 H Pulse Ox 03/21/20 17:09 94 03/21/20 17:00 98 03/21/20 16:50 94 03/21/20 14:44 96 03/21/20 14:35 93 03/21/20 14:20 03/21/20 11:31 97 03/21/20 10:36 94 03/21/20 10:30 95 03/21/20 10:00 92 03/21/20 07:28 95 03/21/20 07:00 03/21/20 04:32 03/21/20 04:17 92 03/21/20 02:30 94 03/21/20 02:18 94 03/21/20 00:30 94 03/21/20 00:27 92 03/21/20 00:10 92 Pain Intensity Generalized: Pain Intensity: 7 Transfer of Care Handoff Completed per policy Notes Mental Status: alert / awake / arousable and participated in evaluation Patient Amnestic to Procedure: Yes Nausea / Vomiting: adequately controlled Pain: adequately controlled Airway Patency, RR, SpO2: stable & adequate BP & HR: stable & adequate Hydration State: stable & adequate Anesthetic Complications: no major complications apparent and Pt Satisfied with anesthetic care
--- NOTE | 2020-03-21 17:26 | Communication Note ---
Date of Service: March 21, [address] Mendoza and Dr Snowden. Pt s/p ERCP. Has h/o mechanical aortic valve prosthesis placed in 2011, received vitamin K and Kcentra today preprocedure. Has permanent atrial fibrillation. If Hgb stable tomorrow , will plan on starting heparin infusion, low dose, no bolus at 12 noon 03/22/20. Dr Nguyen rounding 03/22.
--- NOTE | 2020-03-21 17:54 | GI REPORT ---
Patient Name: Clarisse Mo Procedure Date: 03/21/2020 4:03 PM Date of : 1930 Admit Type: Inpatient Age: 89 Gender: Female Attending MD: Francesca Mendoza MD Procedure: ERCP Providers: Francesca Mendoza MD Referring MD: Breanna Snowden Md Indications: Bile duct stone on Ultrasound, Elevated liver enzymes Medicines: General Anesthesia Complications: No immediate complications. Estimated Blood Loss: Estimated blood loss: none. Procedure: Pre-Anesthesia Assessment: - Prior to the procedure, a History and Physical was performed, and patient medications, allergies and sensitivities were reviewed. The patient's tolerance of previous anesthesia was reviewed. - The risks and benefits of the procedure and the sedation options and risks were discussed with the patient. All questions were answered and informed consent was obtained. - Patient identification and proposed procedure were verified prior to the procedure by the physician and the nurse. The procedure was verified in the procedure room. - Pre-procedure physical examination revealed no contraindications to sedation. After obtaining informed consent, the scope was passed under direct vision. Throughout the procedure, the patient's blood pressure, pulse, and oxygen saturations were monitored continuously. The scope was introduced through the mouth, and advanced to the duodenum and used to inject contrast into the bile duct. The ERCP was accomplished without difficulty. The patient tolerated the procedure well. Findings: The command center officer film was normal. The esophagus was successfully intubated under direct vision. The scope was advanced to a normal major papilla in the descending duodenum without detailed examination of the pharynx, larynx and associated structures, and upper GI tract. The upper GI tract was grossly normal. Despite multiple attempts, the biliary tree could not be cannulated using a sphincterotome. A biliary pre-cut sphincterotomy was made with a monofilament needle knife using a freehand technique using ERBE electrocautery. There was no post-sphincterotomy bleeding. A 0.035 inch straight standard wire was passed into the biliary tree. The Fusion OMNI sphincterotome was passed over the guidewire and the bile duct was then deeply cannulated. Contrast was injected. I personally interpreted the bile duct images. Ductal flow of contrast was adequate. Image quality was adequate. Contrast extended to the main bile duct. The main bile duct was dilated. The largest diameter was 10 mm. The lower third of the main bile duct contained multiple stones. Opacification of the gallbladder was successful. Many large stones seen. The biliary sphincterotomy was extended with a monofilament traction (standard) sphincterotome using ERBE electrocautery. There was no post-sphincterotomy bleeding. The biliary tree was swept with a 15 mm balloon starting at the bifurcation. Many stones were removed. No stones remained. PD was not cannulated. Impression: - Choledocholithiasis was found. Complete removal was accomplished by biliary sphincterotomy and balloon extraction. Recommendation: - [facility]. - Resume anticoagulation after 24 hrs and avoid heparin bolus. Closely monitor her PTT/INR. - Monitor LFTs. - If patient is deemed a poor surgical candidate for cholecystectomy then I will arrange to perform an EUS guided cholecystoduodenostomy using LAMS in few weeks from now at [facility], currently no cholecystitis and her cystic duct is patent. - Recall GI if any questions or concerns. Francesca Mendoza MD 03/21/2020 5:53:50 PM This report has been signed electronically. Note Initiated On: 03/21/2020 4:03 PM Number of Addenda: 0 I attest to the content of the Intraoperative Record and orders documented therein, exceptions below {[id number]}
[2020-03-21] MEDS ORDERED: GLUCAGON FOR INJ 1 MG VIAL ONE (18:13)
--- NOTE | 2020-03-21 18:35 | History & Physical Bridge Note ---
Date of Service March 21, 2020 History & Physical Bridge Note I have examined the patient, reviewed the History & Physical and in the interval since the performance of the History & Physical I have noted the following changes of clinical significance: Since admission, patient was found to have choledocholithiasis on abdominal ultrasound and hyperbilirubinemia as well as multiple electrolyte abnormalities. When I saw her earlier this morning, she complained that she had been having some nausea and vomiting at home and diarrhea for the last several days as well as mild epigastric abdominal pain. She denied chest pain or shortness of breath. She reports wearing chronic O2 at home at nighttime. She denied any fevers. She been having swelling especially in the right leg since her fall 2 weeks ago with significant ecchymosis. I discussed her care at length with gastroenterology, cardiology, Dr. Gupta our anticoagulation specialist, as well as nursing. Vitals reviewed Gen: AAOx3, NAD HEENT: Positive scleral icterus, EOMI CV: RRR/paced, S2 click, no murmur Pulm: CTAB no wcr Abd: Hypoactive bowel sounds, mild tenderness to palpation epigastric region without guarding or rebound tenderness, no masses or hernias Ext: 2+ edema of the right lower extremity with significant ecchymosis of almost the entire right lower extremity, no erythema, 1+ pitting edema in the left lower extremity to the knee Skin: Ecchymosis of the right lower extremity as above Laboratory values were reviewed, imaging studies reviewed ECG is ventricularly paced This patient is an 89-year-old female with a history of mechanical AVR on Coumadin, mitral valve and tricuspid valve repairs, severe pulmonary hyperte nsion on chronic nocturnal O2, pacemaker placement for complete heart block, chronic diastolic CHF, hyponatremia, permanent atrial fibrillation, hypothyroidism, hypertension, who presents here with nausea/vomiting/diarrhea, fall. Found to have choledocholithiasis, acute on chronic hyponatremia, hypomagnesemia, and hypokalemia. -After much coordination to multiple different specialties, plan made to reverse her coagulopathy with K Centra and vitamin K and proceed with ERCP. She was found to have multiple CBD stones on ERCP which were successfully removed with sphincterotomy. Appreciate GI management. She is high risk for cholecystectomy but will consult surgery and appreciate cardiology input on perioperative cardiovascular risk. Another option as per GI would be to perform an EUS guided cholecystoduodenostomy as an outpatient in a few weeks at [facility] in [place] where it is available. We will follow LFTs and CBC in the morning as well as INR. We will also hold aspirin in the morning given sphincterotomy and ERCP. -Plan is to start heparin drip low dose and no bolus at noon on 03/22 given that she has a mechanical aortic valve, follow PT/PTT/INR in the morning -Replace with IV magnesium, already received potassium replacement we will also start normal saline with 20 mEq of potassium chloride at 80 mL's per hour while n.p.o. for procedures today. Can DC fluids once taking clear liquids. Follow BMP, magnesium levels in the morning -We will hold amlodipine in the morning as per cardiology suggestion to help with chronic lower extremity edema as well as borderline low blood pressures. Okay to continue other home antihypertensives A. fib-rates are controlled, is permanently in A. fib and has complete heart block and is pacer dependent. Holding anticoagulation as above, continue metoprolol TSH is normal, continue home levothyroxine Continue PPI Chronic diastolic CHF-monitor for volume overload. Appreciate cardiology consultation. Holding Lasix from home. We will now discontinue IV fluids as she is tolerating clear liquids diet after her procedure today. Complex case
[2020-03-21] MEDS: PANTOprazole 40 MG TAB PO SCH (19:28)
[2020-03-22] MEDS: LEVOTHYROXINE SODIUM 75 MCG TABLET PO SCH (06:26)
[2020-03-22 07:45] LABS: Eosinophils # (auto) 0.05 K/uL (0-0.5); Eosinophils % (auto) 0.6 %; Hematocrit (blood only) 30.8 % (37-47); Hemoglobin 10.4 g/dL (12.0-16.0); Immature Granulocytes # (auto) 0.03 K/uL (0.00-0.02); Immature Granulocytes % (auto) 0.3 %; Lymphocytes # (auto) 0.68 K/uL (1.2-3.4); Lymphocytes % (auto) 7.5 %; Mean Corpuscular Hemoglobin 32.5 pg (25-34); Mean Corpuscular Hgb Conc 33.8 g/dL (32-36); Mean Corpuscular Volume 96.3 fL (80-100); Mean Platelet Volume 9.7 fL (7.4-10.4); Monocytes # (auto) 0.86 K/uL (0.11-0.59); Monocytes % (auto) 9.5 %; Neutrophils % (auto) 82.1 %; Platelet Count 147 K/uL (130-400); RDW Coefficient of Variation 16.6 % (11.5-14.5); RDW Standard Deviation 56.5 fL (36.4-46.3); White Blood Count 9.02 K/uL (4.8-10.8)
[2020-03-22 07:56] LABS: INR 1.3 (0.9-1.1); Partial Thromboplastin Ratio 1.1; Partial Thromboplastin Time 30.5 Seconds (21.0-31.0); Prothrombin Time 13.3 Seconds (9.0-12.0)
[2020-03-22] MEDS: LOSARTAN POTASSIUM 50 MG TAB PO SCH ×2 (08:18→20:25)
[2020-03-22] MEDS: METOPROLOL TARTRATE 100 MG TAB PO SCH ×2 (08:18→20:24)
[2020-03-22] MEDS: DORZOLAMIDE/TIMOLOL 22.3/6.8MG/ML 10 ML BTL OP SCH ×2 (08:19→20:25)
[2020-03-22] MEDS: PANTOprazole 40 MG TAB PO SCH (08:20)
[2020-03-22] MEDS: CALCIUM 600MG + VIT D 400 IU TAB PO SCH (08:20)
--- NOTE | 2020-03-22 08:20 | Anesthesiology Progress Note ---
Date of Service March 22, 2020 Anesthesia Post Procedure Vital Signs Vital Signs: Temp Pulse Pulse Pulse Pulse Resp BP 03/22/20 07:50 36.9 C 69 20 116/63 03/22/20 07:00 66 03/22/20 03:46 36.4 C L 58 L 16 126/65 03/22/20 00:15 60 03/21/20 23:07 36.6 C 60 18 120/59 L 03/21/20 19:44 36.3 C L 60 19 110/65 03/21/20 19:00 36.8 C 60 19 135/71 03/21/20 18:15 36.2 C L 60 16 03/21/20 17:45 36.3 C L 61 18 03/21/20 17:35 36.3 C L 61 16 03/21/20 17:20 36.5 C 60 21 03/21/20 17:10 60 20 03/21/20 17:00 60 21 03/21/20 16:50 36 C L 60 16 03/21/20 14:44 36.7 C 61 18 03/21/20 14:35 36.6 C 61 18 03/21/20 14:20 61 03/21/20 11:31 36.5 C 90 18 03/21/20 10:36 36.6 C 60 16 03/21/20 10:30 36.4 C L 60 16 03/21/20 10:00 36.1 C L 60 16 BP Pulse Ox 03/22/20 07:50 99 03/22/20 07:00 03/22/20 03:46 96 03/22/20 00:15 03/21/20 23:07 95 03/21/20 19:44 96 03/21/20 19:00 95 03/21/20 18:15 138/71 97 03/21/20 17:45 151/72 H 96 03/21/20 17:35 147/68 H 97 03/21/20 17:20 155/61 H 93 03/21/20 17:10 164/62 H 94 03/21/20 17:00 153/64 H 98 03/21/20 16:50 147/57 H 94 03/21/20 14:44 162/68 H 96 03/21/20 14:35 155/64 H 93 03/21/20 14:20 03/21/20 11:31 145/64 H 97 03/21/20 10:36 145/66 H 94 03/21/20 10:30 152/68 H 95 03/21/20 10:00 149/68 H 92 Pain Intensity Generalized: Pain Intensity: 7 Notes Mental Status: alert / awake / arousable and participated in evaluation Nausea / Vomiting: adequately controlled Pain: adequately controlled Airway Patency, RR, SpO2: stable & adequate BP & HR: stable & adequate Hydration State: stable & adequate Anesthetic Complications: no major complications apparent and Pt Satisfied with anesthetic care
[2020-03-22] MEDS: ACETAMINOPHEN 325 MG TAB PO PRN ×2 (08:24→14:56)
[2020-03-22 08:25] LABS: Albumin Level 2.4 gm/dl (3.4-5.0); BUN Creatinine Ratio 34.6 (10-20); Bilirubin Direct 0.9 mg/dl (0-0.2); Bilirubin,Total 2.5 mg/dl (0.2-1); Calcium 8.6 mg/dl (8.5-10.1); Est GFR (African American) 92.8; Est GFR (Non-African American) 80.1; Magnesium 1.9 mg/dl (1.8-2.4); Potassium 4.2 mmol/L (3.5-5.1); Total Protein 6.1 gm/dl (6.4-8.2)
--- NOTE | 2020-03-22 10:01 | Orthopedic Consultation ---
Date of Consultation March 22, 2020 Assessment & Plan (1) Fracture, thoracic vertebra: At this time we had discussions patient regarding her thoracic fracture T10-T11. She is comfortable with the brace. I will order an [id number] TLSO brace to be worn when she is up and ambulating. She does not need to sit with this brace or sleep with it on. I am concerned that her leg symptoms could be related to underlying significant spinal stenosis particular throughout the lumbar region. She has a pacemaker. Is probably not a candidate for an MRI. She is 89 years old and be very hesitant to recommend any surgical intervention. We will see how she progresses with physical therapy once the brace is available. Present on Admission?: Yes History of Present Illness Reason for Consultation: Back pain Attending Physician: Breanna Snowden MD History of Present Illness This is a very pleasant 89-year-old female that states she has had 2 falls over the past 2 weeks. She describes weakness involving the lower extremities practically the right lower extremity. Today she states she has 6-7 out of 10 back pain. She denies any radicular complaints any numbness or tingling into the lower extremities. She states she uses a walker on occasion while at home. Allergies Allergy/AdvReac Type Severity Reaction Status Date / Time Sulfa (Sulfonamide Allergy Intermediate HIVES Verified 03/21/20 02:04 Antibiotics) Home Medications Home Medications Medication Instructions Recorded Confirmed Type furosemide [Lasix] 40 mg PO BID #0 tab 01/17/12 03/21/20 History Centrum Silver Women 1 tab PO DAILY #0 07/31/13 03/21/20 History aspirin [Aspirin Low Dose] 81 mg PO QAM #0 07/31/13 03/21/20 History levothyroxine 75 mcg PO QAM #0 tab 07/31/13 03/21/20 History warfarin 3 mg PO 3XWK #0 tab 07/31/13 03/21/20 History Oxygen Home #0 09/10/13 02/13/19 History lorazepam [Ativan] 0.5 mg PO BID PRN #0 tab 09/10/13 03/21/20 History metoprolol tartrate 100 mg PO BID #0 tab 09/10/13 03/21/20 History amlodipine [Norvasc] 5 mg PO QAM #0 tab 01/16/18 03/21/20 History warfarin 4 mg PO 4XWK 11/29/18 03/21/20 History calcium phosphate-vitamin D3 1 tab PO DAILY 08/12/19 03/21/20 History [Caltrate Gummy Bites] dorzolamide-timolol 1 drp OPHTHALMIC (EYE) AMPM 08/12/19 03/21/20 History losartan 50 mg PO AMPM 08/12/19 03/21/20 History Slow-Mag 1 tab PO TIDM 03/21/20 03/21/20 History cyclosporine [Restasis] 1 drp OPB BID 03/21/20 03/21/20 History potassium chloride 2 tab PO TIDM 03/21/20 03/21/20 History Patient History Medical History (Updated 03/22/20 @ 10:00 by Theodore Nugent DO) Adult hypothyroidism Atrial fibrillation CHF (congestive heart failure) Choledocholithiasis Chronic hyponatremia HTN (hypertension) Pacemaker Pulmonary hypertension severe Thyroid disease Surgical History Aortic valve replaced H/O mechanical aortic valve replacement History of colonoscopy 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 Status post Mohs surgery Family History Brother Cancer Sister Cancer Social History Smoking Status: Never smoker Tobacco Type: Cigarettes Second Hand Exposure: No; Hx Alcohol Use: No Hx Substance Use: No Preferred Language: Luxembourgish Communication Ability: Effective House Father Required: No Beliefs That Will Affect Care: None marital status: / Current Living Situation: Alone How many Children do You have: 2 Other Information That Helps Us Care for You: No Feels Safe at Home: Yes Safety Concerns: Feels Safe At This Time Physical Exam Physical Exam: On exam she is alert and oriented. She is cooperative. Has sensation and strength testing lower extremities. She appears comfortable. Results & Data ([facility]) Vital Signs (Past 12 Hours) Vital Signs Temp Pulse Pulse Resp BP Pulse Ox 03/22/20 07:50 36.9 C 69 20 116/63 99 03/22/20 07:00 66 03/22/20 03:46 36.4 C L 58 L 16 126/65 96 03/22/20 00:15 60 03/21/20 23:07 36.6 C 60 18 120/59 L 95
--- NOTE | 2020-03-22 10:36 | Gastroenterology Progress Note ---
Date of Service March 22, 2020 Assessment & Plan (1) Choledocholithiasis: s/p ERCP yesterday, without complaints at present Advance diet as tolerated Continue supportive care. Admission and Anticipated Discharge Date Admission Date: March 21, 2020 Subjective Cross coverage for [facility]: Patient is feeling better this AM. She denies any abdominal pain at present. States that she would like something to eat, "beyond liquids." Denies any fevers, chills, nausea, vomiting, diarrhea, or abdominal pain now. Has not had a BM today. No further complaints. Review of Systems Review of Systems: All systems reviewed & are unremarkable except as noted in HPI & below Physical Exam Constitutional: WD/WN, vitals as above Eyes: + anicteric sclerae Respiratory: normal respiratory effort; no respiratory distress and no labored breathing Cardiovascular: RRR, no murmur, no edema Gastrointestinal (Abdomen): normal bowel sounds, soft, nontender, no hepatosplenomegaly Psychiatric: A+Ox3, euthymic affect Results & Data Results & Data ([facility]) Vital Signs (Past 12 Hours) Vital Signs Temp Pulse Pulse Resp BP Pulse Ox 03/22/20 07:50 36.9 C 69 20 116/63 99 03/22/20 07:00 66 03/22/20 03:46 36.4 C L 58 L 16 126/65 96 03/22/20 00:15 60 03/21/20 23:07 36.6 C 60 18 120/59 L 95 PG Care Time/CCT Total # of Minutes Spent Total Time Spent with Patient: Total time spent is greater than 50% in coordination of care (as documented) at patient's floor/unit and/or counseling patient: Coding Level of Care Code 24745 Subseq Hosp Care Lvl 2 Diagnoses Choledocholithiasis K80.50
--- NOTE | 2020-03-22 11:53 | Cardiology Progress Note ---
Date of Service March 22, 2020 Assessment & Plan (1) Choledocholithiasis: (2) Atrial fibrillation: (3) H/O mechanical aortic valve replacement: (4) Hypoxia: (5) Subtherapeutic international normalized ratio (INR): (6) Acute on chronic diastolic (congestive) heart failure: Hypoxia likely related to mild volume overload in the setting of withholding diuretic therapy and IV hydration. Recommend 40 mg IV Lasix x1 now. Will give an additional dose of Lasix this evening with plans to restart oral Lasix in a.m. pending review of a.m. labs. Continue to hold Aldactone due to hyponatremia. Initiate IV anticoagulation with heparin today at 12pm due to history of chronic atrial fibrillation and mechanical aortic valve replacement. Restart warfarin today if no objections from the gastroenterology service. Blood pressure remains well controlled despite withholding amlodipine. Consider discontinuation during hospitalization pending clinical course. Admission and Anticipated Discharge Date Admission Date: March 21, 2020 Subjective Patient seen and examined the bedside. ERCP performed yesterday without complication. Bilirubin trending downward. Diuretics on hold since admission. Oxygen saturation of 85% noted on room air this morning. (Patient chronically utilizes 2 L supplemental nasal cannula oxygen nightly). Denies dyspnea, cough, or wheezing. No conversational dyspnea. Somewhat of a poor historian and hearing impaired. Lower extremity edema unchanged. Denies chest pain or palpitations. Telemetry demonstrates ventricular paced rhythm. Anticoagulation reversed on admission. INR 1.3 this morning. Review of Systems Review of Systems: All systems reviewed & are unremarkable except as noted in HPI & below Physical Exam Constitutional: well nourished and + ill appearing; no acute distress Respiratory: normal respiratory effort; no respiratory distress, no labored breathing and no retractions Auscultation: + crackles (Scant crackles at the bases bilaterally); no rales, no rhonchi and no wheezes Cardiovascular: Rate/Rhythm: regular rate Heart Sounds: normal S1, normal S2 and + murmur (2/6 systolic ejection murmur heard best at the right second intercostal space) Vessels: radial pulses present; no JVD and no carotid bruit Extremities: + edema (+ Bilateral pretibial edema, right lower extremity ecchymosis) Gastrointestinal (Abdomen): Inspection/Auscultation: abdomen normal to inspection and normal bowel sounds; abdomen not distended Percussion/Palp ation: abdomen soft; abdomen nontender, no guarding and abdomen not rigid Skin: no rashes, warm and dry Neurologic: PERRL, EOMI, accommodation nl, no face palsy, no dysarthria moves all extremities; no focal motor deficits Speech / Cognition: normal speech Motor/Sensory: no tremor Results & Data ([facility]) Vital Signs (Past 12 Hours) Vital Signs Temp Pulse Pulse Resp BP Pulse Ox 03/22/20 07:50 36.9 C 69 20 116/63 99 03/22/20 07:00 66 03/22/20 03:46 36.4 C L 58 L 16 126/65 96 03/22/20 00:15 60 (1) Atrial fibrillation Atrial fibrillation type: unspecified Qualified Code(s): I48.91 - Unspecified atrial fibrillation
--- NOTE | 2020-03-22 12:30 | Surgery Progress Note ---
Date of Service March 22, 2020 Assessment & Plan (1) Choledocholithiasis: Choledocholithiasis status post ERCP with clearance of the duct. Normally Brenda cystectomy would be indicated however considering her severe pulmonary hypertension and congestive heart failure with acute on chronic she would be at high risk for surgical intervention. She stated that she is concerned about having surgery at her age. Other options are available. We will continue to discuss best course of action following resolution of present issues. Admission and Anticipated Discharge Date Admission Date: March 21, 2020 Subjective Status post ERCP for choledocholithiasis Awake alert and resting in bed Denies abdominal pain Denies nausea and vomiting Tolerated clear liquids and is hungry for a "hoagie" Has had a little more short of breath and has now been requiring oxygen continuously Physical Exam Gastrointestinal (Abdomen): Inspection/Auscultation: normal bowel sounds; abdomen not distended Percussion/Palpation: abdomen soft; abdomen nontender Results & Data ([facility]) Vital Signs (Past 12 Hours) Vital Signs Temp Pulse Pulse Resp BP Pulse Ox 03/22/20 12:06 36.7 C 60 18 104/54 L 93 03/22/20 07:50 36.9 C 69 20 116/63 99 03/22/20 07:00 66 03/22/20 03:46 36.4 C L 58 L 16 126/65 96 Laboratory Results 03/22/20 03/22/20 03/22/20 Range/Units 07:20 07:20 07:20 WBC 9.02 (4.8-10.8) K/uL RBC 3.20 L (4.2-5.4) M/uL Hgb 10.4 L (12.0-16.0) g/dL Hct 30.8 L (37-47) % MCV 96.3 (80-100) fL MCH 32.5 (25-34) pg MCHC 33.8 (32-36) g/dL RDW Std Deviation 56.5 H (36.4-46.3) fL RDW Coeff of Sia 16.6 H (11.5-14.5) % Plt Count 147 (130-400) K/uL MPV 9.7 (7.4-10.4) fL Immature Gran % (Auto) 0.3 % Neut % (Auto) 82.1 % Lymph % (Auto) 7.5 % Arthur % (Auto) 9.5 % Eos % (Auto) 0.6 % Baso % (Auto) 0.0 % Neut # (Auto) 7.40 H (1.4-6.5) K/uL Lymph # (Auto) 0.68 L (1.2-3.4) K/uL Arthur # (Auto) 0.86 H (0.11-0.59) K/uL Eos # (Auto) 0.05 (0-0.5) K/uL Baso # (Auto) 0.00 (0-0.2) K/uL Immature Gran # (Auto) 0.03 H (0.00-0.02) K/uL PT 13.3 H (9.0-12.0) Seconds INR 1.3 H (0.9-1.1) APTT 30.5 (21.0-31.0) Seconds PTT Ratio 1.1 Sodium 126 L (136-145) mmol/L Potassium 4.2 D (3.5-5.1) mmol/L Chloride 92 L (98-107) mmol/L Carbon Dioxide 28 (21-32) mmol/L Anion Gap 7.0 (3-11) BUN 22 H D (7-18) mg/dl Creatinine 0.63 (0.6-1.2) mg/dl Est Cr Clr Drug Dosing 65.0 ml/min Est GFR ( Amer) 92.8 Est GFR (Non-Af Amer) 80.1 BUN/Creatinine Ratio 34.6 H (10-20) Glucose 87 (70-99) mg/dl Calcium 8.6 (8.5-10.1) mg/dl Magnesium 1.9 (1.8-2.4) mg/dl Total Bilirubin 2.5 H (0.2-1) mg/dl Direct Bilirubin 0.9 H (0-0.2) mg/dl AST 43 H (15-37) U/L ALT 32 (12-78) U/L Alkaline Phosphatase 121 H (45-117) U/L Total Protein 6.1 L (6.4-8.2) gm/dl Albumin 2.4 L (3.4-5.0) gm/dl Urine Osmolality (500-800) mOsm/kg Ur Random Sodium mmol/L COVID-19 PCR (Negative) 03/21/20 03/21/20 03/21/20 Range/Units 13:44 12:15 12:15 WBC (4.8-10.8) K/uL RBC (4.2-5.4) M/uL Hgb (12.0-16.0) g/dL Hct (37-47) % MCV (80-100) fL MCH (25-34) pg MCHC (32-36) g/dL RDW Std Deviation (36.4-46.3) fL RDW Coeff of Sia (11.5-14.5) % Plt Count (130-400) K/uL MPV (7.4-10.4) fL Immature Gran % (Auto) % Neut % (Auto) % Lymph % (Auto) % Arthur % (Auto) % Eos % (Auto) % Baso % (Auto) % Neut # (Auto) (1.4-6.5) K/uL Lymph # (Auto) (1.2-3.4) K/uL Arthur # (Auto) (0.11-0.59) K/uL Eos # (Auto) (0-0.5) K/uL Baso # (Auto) (0-0.2) K/uL Immature Gran # (Auto) (0.00-0.02) K/uL PT 13.8 H (9.0-12.0) Seconds INR 1.3 H (0.9-1.1) APTT (21.0-31.0) Seconds PTT Ratio Sodium (136-145) mmol/L Potassium (3.5-5.1) mmol/L Chloride (98-107) mmol/L Carbon Dioxide (21-32) mmol/L Anion Gap (3-11) BUN (7-18) mg/dl Creatinine (0.6-1.2) mg/dl Est Cr Clr Drug Dosing ml/min Est GFR ( Amer) Est GFR (Non-Af Amer) BUN/Creatinine Ratio (10-20) Glucose (70-99) mg/dl Calcium (8.5-10.1) mg/dl Magnesium (1.8-2.4) mg/dl Total Bilirubin (0.2-1) mg/dl Direct Bilirubin (0-0.2) mg/dl AST (15-37) U/L ALT (12-78) U/L Alkaline Phosphatase (45-117) U/L Total Protein (6.4-8.2) gm/dl Albumin (3.4-5.0) gm/dl Urine Osmolality 339 L (500-800) mOsm/kg Ur Random Sodium mmol/L COVID-19 PCR NEGATIVE (Negative) 03/21/20 Range/Units 12:15 WBC (4.8-10.8) K/uL RBC (4.2-5.4) M/uL Hgb (12.0-16.0) g/dL Hct (37-47) % MCV (80-100) fL MCH (25-34) pg MCHC (32-36) g/dL RDW Std Deviation (36.4-46.3) fL RDW Coeff of Sia (11.5-14.5) % Plt Count (130-400) K/uL MPV (7.4-10.4) fL Immature Gran % (Auto) % Neut % (Auto) % Lymph % (Auto) % Arthur % (Auto) % Eos % (Auto) % Baso % (Auto) % Neut # (Auto) (1.4-6.5) K/uL Lymph # (Auto) (1.2-3.4) K/uL Arthur # (Auto) (0.11-0.59) K/uL Eos # (Auto) (0-0.5) K/uL Baso # (Auto) (0-0.2) K/uL Immature Gran # (Auto) (0.00-0.02) K/uL PT (9.0-12.0) Seconds INR (0.9-1.1) APTT (21.0-31.0) Seconds PTT Ratio Sodium (136-145) mmol/L Potassium (3.5-5.1) mmol/L Chloride (98-107) mmol/L Carbon Dioxide (21-32) mmol/L Anion Gap (3-11) BUN (7-18) mg/dl Creatinine (0.6-1.2) mg/dl Est Cr Clr Drug Dosing ml/min Est GFR ( Amer) Est GFR (Non-Af Amer) BUN/Creatinine Ratio (10-20) Glucose (70-99) mg/dl Calcium (8.5-10.1) mg/dl Magnesium (1.8-2.4) mg/dl Total Bilirubin (0.2-1) mg/dl Direct Bilirubin (0-0.2) mg/dl AST (15-37) U/L ALT (12-78) U/L Alkaline Phosphatase (45-117) U/L Total Protein (6.4-8.2) gm/dl Albumin (3.4-5.0) gm/dl Urine Osmolality (500-800) mOsm/kg Ur Random Sodium 22 mmol/L COVID-19 PCR (Negative)
[2020-03-22] MEDS ORDERED: Nursing to Pharmacy Communication SCH (13:00)
--- NOTE | 2020-03-22 13:11 | Hospitalist Progress Note ---
Date of Service March 22, 2020 Assessment & Plan (1) Choledocholithiasis: This patient is an 89-year-old female with a history of mechanical AVR on Coumadin, mitral valve and tricuspid valve repairs, severe pulmonary hypertension on chronic nocturnal O2, pacemaker placement for complete heart block, chronic diastolic CHF, hyponatremia, permanent atrial fibrillation, hypothyroidism, hypertension, who presents here with nausea/vomiting/diarrhea, fall. Found to have choledocholithiasis, acute on chronic hyponatremia, hypomagnesemia, and hypokalemia. Had been having nausea and vomiting as well as diarrhea for several days prior to admission and some mild epigastric abdominal pain. No fevers Was found to have choledocholithiasis on abdominal ultrasound and hyperbilirubinemia as well as multiple electrolyte abnormalities upon admission. -After much coordination to multiple different specialties, plan made to reverse her coagulopathy with K Centra and vitamin K and proceed with ERCP. She was found to have multiple CBD stones on ERCP which were successfully removed with sphincterotomy. Appreciate GI management. She is high risk for cholecystectomy but have consulted surgery and appreciate cardiology input on perioperative cardiovascular risk. Another option as per GI would be to perform an EUS guided cholecystoduodenostomy as an outpatient in a few weeks at [facility] in [place] where it is available. LFTs are improving today status post ERCP and she is tolerating a full liquids diet -Advance to low-fat diet as tolerated -follow LFTs -Hold aspirin given sphincterotomy and ERCP - start heparin drip low dose and no bolus 24 hours after ERCP given that she has a mechanical aortic valve - follow PT/PTT/INR in the morning -GI reported if no issues with bleeding, could restart Coumadin tomorrow (2) Hyponatremia: Sp=487 upon admission and improved now to 126 after IV fluid hydration Has chronic hyponatremia and previously Aldactone was discontinued -Previously holding home Lasix, but now with volume overload and bibasilar crackles with worsening hypoxia-giving IV Lasix twice daily today will likely restart p.o. Lasix in the morning Follow BMP in the morning (3) Fall: Presented with s/p mechanical fall likely secondary to generalized weakness from choledocholithiasis and hyponatremia; no head trauma or LOC. Down time appx 4 hours. Imaging with T10 fracture otherwise no acute fractures. -Fall precautions -PT/OT -Pain control (4) Atrial fibrillation: Stable, rate controlled, chronic atrial fibrillation. With complete heart block and pacer dependent -Continue Metoprolol Reversed Coumadin upon arrival for urgent procedure with Kcentra and vitamin K Now starting heparin drip Follow INR, PTT -We will likely restart Coumadin tomorrow Goal INR is 2.5-3.5 given mechanical aortic valve along with atrial fibrillation -Follow CBC (5) H/O mechanical aortic valve replacement: Chronic. Stable. -As above with anticoagulation plan (6) Hypokalemia: Hypokalemia upon admission which is now resolved after replacement Follow BMP, magnesium levels in the morning (7) HTN (hypertension): Blood pressure is well controlled -Holding home amlodipine for lower extremity edema and may not need to restart as per cardiology recommendation -Continue home metoprolol, Losartan -Continue to monitor (8) Adult hypothyroidism: TSH is normal, continue home levothyroxine (9) Anxiety: Chronic -Continue Lorazepam 0.5mg po BID PRN (10) Hypoxia: Acute on chronic respiratory failure with hypoxia Is on O2 at night normally at home, but has been requiring O2 during the day here IV diuretics with Lasix -Wean off O2 as tolerated during the day (11) Fracture, thoracic vertebra: T10 vertebral fracture present through to the disc Appreciate orthopedic spine consultation-for TLSO brace and PT/OT, not a good surgical candidate (12) Pulmonary hypertension: Noted to be severe on echocardiogram recently With chronic peripheral edema Reinitiating diuretics today (13) Acute on chronic diastolic (congestive) heart failure: With acute on chronic diastolic CHF-now with volume overload as above, crackles on examination, worsening hypoxia. Did receive IV fluids yesterday -IV Lasix 40 mg twice daily today and then restart home p.o. Lasix in the morning if renal function and volume status allow Appreciate cardiology consultation. (14) Status post placement of cardiac pacemaker: For complete heart block, with chronic atrial fibrillation (15) Thickened endometrium: Noted to [address] lining on CT scan Pelvic ultrasound indicated as an outpatient for further follow-up and possible [employer] referral if pelvic ultrasound remains abnormal (16) DVT prophylaxis: Heparin drip Disposition-remain on medical floor with telemetry Admission and Anticipated Discharge Date Admission Date: March 21, 2020 Subjective Feeling fairly well today, no further abd pain. No N/V. She denies chest pain as per my discussion with cardiology and was improved. Discussed her care with her daughter also at the bedside. Telemetry with paced rhythm in the 60s. , but she was having some shortness of breath and was continuing to require oxygen this morning to keep her sats up. She was given IV Lasix Review of Systems Review of Systems: All systems reviewed & are unremarkable except as noted in HPI & below Physical Exam Constitutional: WD/WN, vitals as above Eyes: + scleral abnormality (Scleral icterus) Neck: trachea midline, no thyromegaly Respiratory: normal respiratory effort Auscultation: + crackles (Bibasilar); no rhonchi and no wheezes Cardiovascular: Rate/Rhythm: regular rate and regular rhythm Extremities: + edema (Right lower extremity with 2+ edema with large amount of ecchymosis, no erythema; left leg with 1+ pitting edema) Chest (Breasts): Chest: normal inspection of chest Gastrointestinal (Abdomen): normal bowel sounds, soft, nontender, no hepatosplenomegaly Musculoskeletal: Extremities: no cyanosis and no clubbing Skin: + ecchymosis (Of right lower extremity as above); no erythema Neurologic: moves all extremities and awake; no focal motor deficits Psychiatric: A+Ox3, euthymic affect Lymphatic: no lymphedema Results & Data Results & Data ([facility]) Vital Signs (Past 12 Hours) Vital Signs Temp Pulse Pulse Resp BP Pulse Ox 03/22/20 12:06 36.7 C 60 18 104/54 L 93 03/22/20 07:50 36.9 C 69 20 116/63 99 03/22/20 07:00 66 03/22/20 03:46 36.4 C L 58 L 16 126/65 96 Laboratory Results 03/22/20 03/22/20 03/22/20 Range/Units 20:12 07:20 07:20 WBC 9.02 (4.8-10.8) K/uL RBC 3.20 L (4.2-5.4) M/uL Hgb 10.4 L (12.0-16.0) g/dL Hct 30.8 L (37-47) % MCV 96.3 (80-100) fL MCH 32.5 (25-34) pg MCHC 33.8 (32-36) g/dL RDW Std Deviation 56.5 H (36.4-46.3) fL RDW Coeff of Sia 16.6 H (11.5-14.5) % Plt Count 147 (130-400) K/uL MPV 9.7 (7.4-10.4) fL Immature Gran % (Auto) 0.3 % Neut % (Auto) 82.1 % Lymph % (Auto) 7.5 % King[place]isher % (Auto) 9.5 % Eos % (Auto) 0.6 % Baso % (Auto) 0.0 % Neut # (Auto) 7.40 H (1.4-6.5) K/uL Lymph # (Auto) 0.68 L (1.2-3.4) K/uL [place] # (Auto) 0.86 H (0.11-0.59) K/uL Eos # (Auto) 0.05 (0-0.5) K/uL Baso # (Auto) 0.00 (0-0.2) K/uL Immature Gran # (Auto) 0.03 H (0.00-0.02) K/uL PT (9.0-12.0) Seconds INR (0.9-1.1) APTT 50.7 H* (21.0-31.0) Seconds PTT Ratio 1.8 Sodium 126 L (136-145) mmol/L Potassium 4.2 D (3.5-5.1) mmol/L Chloride 92 L (98-107) mmol/L Carbon Dioxide 28 (21-32) mmol/L Anion Gap 7.0 (3-11) BUN 22 H D (7-18) mg/dl Creatinine 0.63 (0.6-1.2) mg/dl Est Cr Clr Drug Dosing 65.0 ml/min Est GFR ( Amer) 92.8 Est GFR (Non-Af Amer) 80.1 BUN/Creatinine Ratio 34.6 H (10-20) Glucose 87 (70-99) mg/dl Calcium 8.6 (8.5-10.1) mg/dl Magnesium 1.9 (1.8-2.4) mg/dl Total Bilirubin 2.5 H (0.2-1) mg/dl Direct Bilirubin 0.9 H (0-0.2) mg/dl AST 43 H (15-37) U/L ALT 32 (12-78) U/L Alkaline Phosphatase 121 H (45-117) U/L Total Protein 6.1 L (6.4-8.2) gm/dl Albumin 2.4 L (3.4-5.0) gm/dl 03/22/20 Range/Units 07:20 WBC (4.8-10.8) K/uL RBC (4.2-5.4) M/uL Hgb (12.0-16.0) g/dL Hct (37-47) % MCV (80-100) fL MCH (25-34) pg MCHC (32-36) g/dL RDW Std Deviation (36.4-46.3) fL RDW Coeff of Sia (11.5-14.5) % Plt Count (130-400) K/uL MPV (7.4-10.4) fL Immature Gran % (Auto) % Neut % (Auto) % Lymph % (Auto) % King[place]isher % (Auto) % Eos % (Auto) % Baso % (Auto) % Neut # (Auto) (1.4-6.5) K/uL Lymph # (Auto) (1.2-3.4) K/uL [place] # (Auto) (0.11-0.59) K/uL Eos # (Auto) (0-0.5) K/uL Baso # (Auto) (0-0.2) K/uL Immature Gran # (Auto) (0.00-0.02) K/uL PT 13.3 H (9.0-12.0) Seconds INR 1.3 H (0.9-1.1) APTT 30.5 (21.0-31.0) Seconds PTT Ratio 1.1 Sodium (136-145) mmol/L Potassium (3.5-5.1) mmol/L Chloride (98-107) mmol/L Carbon Dioxide (21-32) mmol/L Anion Gap (3-11) BUN (7-18) mg/dl Creatinine (0.6-1.2) mg/dl Est Cr Clr Drug Dosing ml/min Est GFR ( Amer) Est GFR (Non-Af Amer) BUN/Creatinine Ratio (10-20) Glucose (70-99) mg/dl Calcium (8.5-10.1) mg/dl Magnesium (1.8-2.4) mg/dl Total Bilirubin (0.2-1) mg/dl Direct Bilirubin (0-0.2) mg/dl AST (15-37) U/L ALT (12-78) U/L Alkaline Phosphatase (45-117) U/L Total Protein (6.4-8.2) gm/dl Albumin (3.4-5.0) gm/dl PG Care Time/CCT Total # of Minutes Spent Total Time Spent with Patient: Total time spent is greater than 50% in coordinat ion of care (as documented) at patient's floor/unit and/or counseling patient: Coding Level of Care Code 95644 Subseq Hosp Care Lvl 3 Diagnoses Choledocholithiasis K80.50 Hyponatremia E87.1 Fall W19.XXXA Encounter type: initial encounter Atrial fibrillation I48.91 Atrial fibrillation type: unspecified H/O mechanical aortic valve replacement Z95.2 Hypokalemia E87.6 HTN (hypertension) I10 Adult hypothyroidism E03.9 Anxiety F41.9 Hypoxia R09.02 Fracture, thoracic vertebra S22.009A Pulmonary hypertension I27.20 Acute on chronic diastolic (congestive) heart failure I50.33 Status post placement of cardiac pacemaker Z95.0 Thickened endometrium R93.89 DVT prophylaxis Z29.9 (1) Atrial fibrillation Atrial fibrillation type: unspecified Qualified Code(s): I48.91 - Unspecified atrial fibrillation (2) Fall Encounter type: initial encounter Qualified Code(s): W19.XXXA - Unspecified fall, initial encounter
[2020-03-22] MEDS: HEPARIN SODIUM/DEXTROSE 25,000 UNITS/500 ML BAG IV SCH (14:28)
[2020-03-22] MEDS ORDERED: WARFARIN SOD 3 MG TAB PO SCH (16:00)
[2020-03-22] MEDS ORDERED: FUROSEMIDE 40 MG in SYRINGE 0 ML IV ONE (17:00)
[2020-03-22] MEDS ORDERED: FUROSEMIDE 40 MG in SYRINGE 1 ML IV SCH (17:00)
[2020-03-22] MEDS: Heparin IV Low Dose *NO* Bolus IV SCH (19:11)
[2020-03-22 20:39] LABS: Partial Thromboplastin Ratio 1.8
[2020-03-22 20:43] LABS: Partial Thromboplastin Time 50.7 Seconds (21.0-31.0)
[2020-03-23] MEDS: LEVOTHYROXINE SODIUM 75 MCG TABLET PO SCH (05:52)
[2020-03-23] MEDS: LOSARTAN POTASSIUM 50 MG TAB PO SCH (08:00)
[2020-03-23] MEDS: CALCIUM 600MG + VIT D 400 IU TAB PO SCH (08:01)
[2020-03-23] MEDS: METOPROLOL TARTRATE 100 MG TAB PO SCH ×2 (08:01→20:06)
[2020-03-23] MEDS: DORZOLAMIDE/TIMOLOL 22.3/6.8MG/ML 10 ML BTL OP SCH ×2 (08:02→20:06)
[2020-03-23] MEDS: PANTOprazole 40 MG TAB PO SCH (08:02)
[2020-03-23 08:15] LABS: INR 1.5 (0.9-1.1); Partial Thromboplastin Ratio 2.4; Prothrombin Time 15.5 Seconds (9.0-12.0)
[2020-03-23 08:22] LABS: Partial Thromboplastin Time 65.8 Seconds (21.0-31.0)
[2020-03-23 08:28] LABS: Albumin Level 2.1 gm/dl (3.4-5.0); BUN Creatinine Ratio 62.5 (10-20); Bilirubin Direct 0.7 mg/dl (0-0.2); Bilirubin,Total 1.6 mg/dl (0.2-1); Calcium 7.9 mg/dl (8.5-10.1); Creatinine Clr Calc Pharmacy 76.2 ml/min; Est GFR (African American) 97.6; Est GFR (Non-African American) 84.3; Magnesium 1.6 mg/dl (1.8-2.4); Potassium 3.3 mmol/L (3.5-5.1); Total Protein 5.4 gm/dl (6.4-8.2)
[2020-03-23] MEDS ORDERED: POTASSIUM CHLORIDE 20 MEQ TABCR PO STA (09:17)
[2020-03-23] MEDS ORDERED: FUROSEMIDE 40 MG in SYRINGE 0 ML IV ONE (09:45)
[2020-03-23] MEDS: MAGNESIUM SULFATE / D5W 1 GM/100 ML BAG IV SCH ×2 (09:57→11:49)
--- NOTE | 2020-03-23 11:13 | Surgery Progress Note ---
Date of Service March 23, 2020 Assessment & Plan (1) Choledocholithiasis: Status post ERCP with clearance of CBD Doing well Bilirubin has continued to decrease Patient still has cholelithiasis. She would be at high risk for surgical intervention and endoscopic choledochoduodenostomy has been discussed. The patient seems to have some interest in that That can be performed as per gastroenterology in the near future. No indication for immediate surgical intervention. Admission and Anticipated Discharge Date Admission Date: March 21, 2020 Subjective Status post ERCP for choledocholithiasis Denies abdominal pain today Had eggs, toast and coffee this morning without symptoms Denies nausea and vomiting Physical Exam Gastrointestinal (Abdomen): Inspection/Auscultation: normal bowel sounds; abdomen not distended Percussion/Palpation: abdomen soft; abdomen nontender Results & Data ([facility] [place]) Vital Signs (Past 12 Hours) Vital Signs Temp Pulse Pulse Resp BP Pulse Ox 03/23/20 09:30 60 03/23/20 08:03 60 03/23/20 07:17 37.0 C 57 L 20 112/55 L 98 03/23/20 04:02 36.6 C 61 18 111/52 L 97 03/22/20 23:23 60 Laboratory Results 03/23/20 03/23/20 03/22/20 Range/Units 07:20 07:20 20:12 PT 15.5 H (9.0-12.0) Seconds INR 1.5 H (0.9-1.1) APTT 65.8 H* 50.7 H* (21.0-31.0) Seconds PTT Ratio 2.4 1.8 Sodium 130 L (136-145) mmol/L Potassium 3.3 L D (3.5-5.1) mmol/L Chloride 92 L (98-107) mmol/L Carbon Dioxide 32 (21-32) mmol/L Anion Gap 6.0 (3-11) BUN 34 H D (7-18) mg/dl Creatinine 0.54 L (0.6-1.2) mg/dl Est Cr Clr Drug Dosing 76.2 ml/min Est GFR ( Amer) 97.6 Est GFR (Non-Af Amer) 84.3 BUN/Creatinine Ratio 62.5 H (10-20) Glucose 84 (70-99) mg/dl Calcium 7.9 L (8.5-10.1) mg/dl Magnesium 1.6 L (1.8-2.4) mg/dl Total Bilirubin 1.6 H (0.2-1) mg/dl Direct Bilirubin 0.7 H (0-0.2) mg/dl AST 29 (15-37) U/L ALT 26 (12-78) U/L Alkaline Phosphatase 95 (45-117) U/L Total Protein 5.4 L (6.4-8.2) gm/dl Albumin 2.1 L (3.4-5.0) gm/dl
--- NOTE | 2020-03-23 11:16 | Cardiology Progress Note ---
Date of Service March 23, 2020 Assessment & Plan (1) Choledocholithiasis: (2) Atrial fibrillation: (3) H/O mechanical aortic valve replacement: (4) Hypoxia: (5) Subtherapeutic international normalized ratio (INR): (6) Acute on chronic diastolic (congestive) heart failure: IV Lasix 40 mg twice daily. Repeat basic metabolic panel today and in a.m. To need to follow fluid balance, daily weight, GFR, and electrolytes. Aldactone will remain on hold due to history of hyponatremia. Supplemental oxygen during waking hours as needed. Continue IV heparin bridging. Restart warfarin today if no objections from the gastroenterology service. Blood pressure remains well controlled despite withholding amlodipine. Consider discontinuation during hospitalization pending clinical course. Reduce losartan to 50 mg once daily. Admission and Anticipated Discharge Date Admission Date: March 21, 2020 Subjective Patient seen and examined at the bedside. Remains on supplemental oxygen. Fluid balance minimally negative over the past 24 hours. Denies chest pain or shortness of breath at rest. Tolerated her p.m. meal 03/22/20, and a.m. meal today. No abdominal discomfort, nausea, or vomiting. Denies palpitations, lightens, dizziness, syncope, near syncope. No signs/symptoms of GI/ blood loss. Review of Systems Review of Systems: All systems reviewed & are unremarkable except as noted in HPI & below Physical Exam Constitutional: well nourished and + ill appearing; no acute distress Respiratory: normal respiratory effort; no respiratory distress, no labored breathing and no retractions Auscultation: + crackles (Scant crackles at the bases bilaterally); no rales, no rhonchi and no wheezes Cardiovascular: Rate/Rhythm: regular rate Heart Sounds: normal S1, normal S2 and + murmur (2/6 systolic ejection murmur heard best at the right second intercostal space) Vessels: radial pulses present; no JVD and no carotid bruit Extremities: + edema (+ Bilateral pretibial edema, right lower extremity ecchymosis) Gastrointestinal (Abdomen): Inspection/Auscultation: abdomen normal to inspection and normal bowel sounds; abdomen not distended Percussion/Palpation: abdomen soft; abdomen nontender, no guarding and abdomen not rigid Skin: no rashes, warm and dry Neurologic: PERRL, EOMI, accommodation nl, no face palsy, no dysarthria moves all extremities; no focal motor deficits Speech / Cognition: normal speech Motor/Sensory: no tremor Results & Data ([facility]) Vital Signs (Past 12 Hours) Vital Signs Temp Pulse Pulse Resp BP Pulse Ox 03/23/20 09:30 60 03/23/20 08:03 60 03/23/20 07:17 37.0 C 57 L 20 112/55 L 98 03/23/20 04:02 36.6 C 61 18 111/52 L 97 03/22/20 23:23 60 (1) Atrial fibrillation Atrial fibrillation type: unspecified Qualified Code(s): I48.91 - Unspecified atrial fibrillation
[2020-03-23 12:09] LABS: BUN Creatinine Ratio 59.8 (10-20); Calcium 8.2 mg/dl (8.5-10.1); Creatinine Clr Calc Pharmacy 70.9 ml/min; Est GFR (African American) 95.4; Est GFR (Non-African American) 82.3; Magnesium 1.8 mg/dl (1.8-2.4); Potassium 3.6 mmol/L (3.5-5.1)
[2020-03-23] MEDS: HEPARIN SODIUM/DEXTROSE 25,000 UNITS/500 ML BAG IV SCH (13:15)
--- NOTE | 2020-03-23 13:42 | Hospitalist Progress Note ---
Date of Service March 23, 2020 Assessment & Plan (1) Choledocholithiasis: This patient is an 89-year-old female with a history of mechanical AVR on Coumadin, mitral valve and tricuspid valve repairs, severe pulmonary hypertension on chronic nocturnal O2, pacemaker placement for complete heart block, chronic diastolic CHF, hyponatremia, permanent atrial fibrillation, hypothyroidism, hypertension, who presents here with nausea/vomiting/diarrhea, fall due to generalized weakness. Found to have choledocholithiasis, acute on chronic hyponatremia, hypomagnesemia, and hypokalemia. No fevers. With choledocholithiasis on abdominal ultrasound and hyperbilirubinemia as well as multiple electrolyte abnormalities upon admission. - reversed her coagulopathy with K Centra and vitamin K and proceeded with ERCP urgently on Tuesday. She was found to have multiple CBD stones on ERCP which we re successfully removed with sphincterotomy. Appreciate GI management. She is high risk for cholecystectomy but have consulted surgery and appreciate cardiology input on perioperative cardiovascular risk. Another option as per GI would be to perform an EUS guided cholecystoduodenostomy as an outpatient in a few weeks at [facility] in [place] where it is available. LFTs are continuing to improve today status post ERCP and she is tolerating a low fat diet -follow LFTs in AM -Hold aspirin given sphincterotomy and ERCP - started heparin drip low dose and no bolus 24 hours after ERCP given that she has a mechanical aortic valve--> ok as per GI to start Coumadin today (2) Hyponatremia: Qc=506 upon admission and improved to 126 after IV fluid hydration Has chronic hyponatremia and previously Aldactone was discontinued for such However, then was volume overloaded on hospital day #2 and now diuresing with IV lasix--> Na+ now rising to 130 -continue IV lasix today and possibly restart po lasix in the AM Follow BMP in the morning (3) Fall: Presented with s/p mechanical fall likely secondary to generalized weakness from choledocholithiasis and hyponatremia; no head trauma or LOC. Down time appx 4 hours. Imaging with T10 fracture otherwise no acute fractures. -Fall precautions -PT/OT -Pain control as needed (4) Atrial fibrillation: Stable, rate controlled, chronic atrial fibrillation. With complete heart block and pacer dependent -Continue Metoprolol Reversed Coumadin upon arrival for urgent procedure with Kcentra and vitamin K -continue bridging heparin drip Follow INR, PTT - restart Coumadin 03/23 with 4mg daily Goal INR is 2.5-3.5 given mechanical aortic valve along with atrial fibrillation -Follow CBC (5) H/O mechanical aortic valve replacement: Chronic. Stable. -As above with anticoagulation plan (6) Hypokalemia: Hypokalemia recurs today after IV lasix replace with po KCl Follow BMP, magnesium levels in the morning (7) HTN (hypertension): Blood pressure is well controlled to low normal -Holding home amlodipine for lower extremity edema and may not need to restart as per cardiology recommendation -Continue home metoprolol, Losartan but reduced dose to 50mg once daily from bid as per Cardiology -Continue to monitor (8) Adult hypothyroidism: TSH is normal, continue home levothyroxine (9) Anxiety: Chronic -Continue Lorazepam 0.5mg po BID PRN (10) Hypoxia: Acute on chronic respiratory failure with hypoxia Is on O2 at night normally at home, but has been requiring O2 during the day here Continue IV diuretics with Lasix -Wean off O2 as tolerated during the day (11) Fracture, thoracic vertebra: T10 vertebral fracture present through to the disc No pain with this Appreciate orthopedic spine consultation-for TLSO brace and PT/OT, not a good surgical candidate-awaiting TLSO brace likely Tuesday, then can work with PT/OT (12) Pulmonary hypertension: Noted to be severe on echocardiogram recently With chronic peripheral edema continue diuresis (13) Acute on chronic diastolic (congestive) heart failure: With acute on chronic diastolic CHF-then with volume overload as above, crackles on examination, worsening hypoxia after IV fluids on arrival for NPO and hyponatremia/vomiting Now improving, less edema, lower O2 requirement after IV Lasix 40 mg twice daily -restart home p.o. Lasix in the morning if renal function and volume status allow Appreciate cardiology consultation. (14) Status post placement of cardiac pacemaker: For complete heart block, with chronic atrial fibrillation (15) Thickened endometrium: Noted to [address] lining on CT scan Pelvic ultrasound indicated as an outpatient for further follow-up and possible [employer] referral if pelvic ultrasound remains abnormal (16) Hypomagnesemia: replace with IV magnesium, secondary to diuresis (17) DVT prophylaxis: Heparin drip Disposition-remain on medical floor with telemetry Awaiting PT/OT evals after TLSO brace applied Desires referral to [facility] for rehab placement Possible discharge to rehab in 1-2 days Could go on Lovenox SQ bridging Admission and Anticipated Discharge Date Admission Date: March 21, 2020 Subjective Feeling better. No nausea/vomiting, no abd pain, is perry low fat diet. Denies CP or SOB. No c/o back pain Tele with paced rhythm, rates 60s I discussed her case with GI and with Cardiologsy today She tells me that she does not think she can go home alone and is wanting referral to rehab Review of Systems Review of Systems: All systems reviewed & are unremarkable except as noted in HPI & below Physical Exam Constitutional: WD/WN, vitals as above Eyes: + anicteric sclerae Neck: trachea midline, no thyromegaly Respiratory: normal respiratory effort Auscultation: + crackles (Bibasilar); no rhonchi and no wheezes Cardiovascular: Rate/Rhythm: regular rate and regular rhythm Extremities: + edema (RLE ecchymotic,1+ edema, trce edema LLE, improved from previous) Chest (Breasts): Chest: normal inspection of chest Gastrointestinal (Abdomen): normal bowel sounds, soft, nontender, no hepatosplenomegaly Musculoskeletal: Extremities: no cyanosis and no clubbing Skin: + ecchymosis (Of right lower extremity as above); no erythema Neurologic: moves all extremities and awake; no focal motor deficits Psychiatric: A+Ox3, euthymic affect Lymphatic: no lymphedema Results & Data Results & Data ([facility]) Vital Signs (Past 12 Hours) Vital Signs Temp Pulse Pulse Resp BP Pulse Ox 03/23/20 11:23 36.8 C 60 20 110/52 L 97 03/23/20 09:30 60 03/23/20 08:03 60 03/23/20 07:17 37.0 C 57 L 20 112/55 L 98 03/23/20 04:02 36.6 C 61 18 111/52 L 97 Laboratory Results 03/23/20 03/23/20 03/23/20 Range/Units 11:27 07:20 07:20 PT 15.5 H (9.0-12.0) Seconds INR 1.5 H (0.9-1.1) APTT 65.8 H* (21.0-31.0) Seconds PTT Ratio 2.4 Sodium 131 L 130 L (136-145) mmol/L Potassium 3.6 3.3 L D (3.5-5.1) mmol/L Chloride 93 L 92 L (98-107) mmol/L Carbon Dioxide 35 H 32 (21-32) mmol/L Anion Gap 3.0 6.0 (3-11) BUN 34 H 34 H D (7-18) mg/dl Creatinine 0.58 L 0.54 L (0.6-1.2) mg/dl Est Cr Clr Drug Dosing 70.9 76.2 ml/min Est GFR ( Amer) 95.4 97.6 Est GFR (Non-Af Amer) 82.3 84.3 BUN/Creatinine Ratio 59.8 H 62.5 H (10-20) Glucose 92 84 (70-99) mg/dl Calcium 8.2 L 7.9 L (8.5-10.1) mg/dl Magnesium 1.8 1.6 L (1.8-2.4) mg/dl Total Bilirubin 1.6 H (0.2-1) mg/dl Direct Bilirubin 0.7 H (0-0.2) mg/dl AST 29 (15-37) U/L ALT 26 (12-78) U/L Alkaline Phosphatase 95 (45-117) U/L Total Protein 5.4 L (6.4-8.2) gm/dl Albumin 2.1 L (3.4-5.0) gm/dl 03/22/20 Range/Units 20:12 PT (9.0-12.0) Seconds INR (0.9-1.1) APTT 50.7 H* (21.0-31.0) Seconds PTT Ratio 1.8 Sodium (136-145) mmol/L Potassium (3.5-5.1) mmol/L Chloride (98-107) mmol/L Carbon Dioxide (21-32) mmol/L Anion Gap (3-11) BUN (7-18) mg/dl Creatinine (0.6-1.2) mg/dl Est Cr Clr Drug Dosing ml/min Est GFR ( Amer) Est GFR (Non-Af Amer) BUN/Creatinine Ratio (10-20) Glucose (70-99) mg/dl Calcium (8.5-10.1) mg/dl Magnesium (1.8-2.4) mg/dl Total Bilirubin (0.2-1) mg/dl Direct Bilirubin (0-0.2) mg/dl AST (15-37) U/L ALT (12-78) U/L Alkaline Phosphatase (45-117) U/L Total Protein (6.4-8.2) gm/dl Albumin (3.4-5.0) gm/dl PG Care Time/CCT Total # of Minutes Spent Total Time Spent with Patient: Total time spent is greater than 50% in coordination of care (as documented) at patient's floor/unit and/or counseling patient: Coding Level of Care Code 37698 Subseq Hosp Care Lvl 3 Diagnoses Choledocholithiasis K80.50 Hyponatremia E87.1 Fall W19.XXXA Encounter type: initial encounter Atrial fibrillation I48.91 Atrial fibrillation type: unspecified H/O mechanical aortic valve replacement Z95.2 Hypokalemia E87.6 HTN (hypertension) I10 Adult hypothyroidism E03.9 Anxiety F41.9 Hypoxia R09.02 Fracture, thoracic vertebra S22.009A Pulmonary hypertension I27.20 Acute on chronic diastolic (congestive) heart failure I50.33 Status post placement of cardiac pacemaker Z95.0 Thickened endometrium R93.89 Hypomagnesemia E83.42 DVT prophylaxis Z29.9 (1) Fall Encounter type: initial encounter Qualified Code(s): W19.XXXA - Unspecified fall, initial encounter (2) Atrial fibrillation Atrial fibrillation type: unspecified Qualified Code(s): I48.91 - Unspecified atrial fibrillation
[2020-03-23] MEDS: WARFARIN SOD 4 MG TAB PO SCH (15:56)
[2020-03-23] MEDS ORDERED: POTASSIUM CHLORIDE 20 MEQ TABCR PO ONE (17:00)
[2020-03-23] MEDS: FUROSEMIDE 40 MG in SYRINGE 0 ML IV SCH (17:38)
[2020-03-23] MEDS: POLYETHYLENE (MIRALAX) 17 GM PACK PO SCH (20:04)
[2020-03-24 05:33] LABS: Basophils # (auto) 0.01 K/uL (0-0.2); Basophils % (auto) 0.1 %; Eosinophils # (auto) 0.22 K/uL (0-0.5); Eosinophils % (auto) 2.6 %; Hematocrit (blood only) 22.9 % (37-47); Hemoglobin 7.6 g/dL (12.0-16.0); Immature Granulocytes # (auto) 0.06 K/uL (0.00-0.02); Immature Granulocytes % (auto) 0.7 %; Lymphocytes # (auto) 1.19 K/uL (1.2-3.4); Lymphocytes % (auto) 14.2 %; Mean Corpuscular Hemoglobin 32.8 pg (25-34); Mean Corpuscular Hgb Conc 33.2 g/dL (32-36); Mean Corpuscular Volume 98.7 fL (80-100); Mean Platelet Volume 8.8 fL (7.4-10.4); Monocytes # (auto) 1.04 K/uL (0.11-0.59); Monocytes % (auto) 12.4 %; Neutrophils # (auto) 5.86 K/uL (1.4-6.5); Platelet Count 119 K/uL (130-400); RDW Coefficient of Variation 17.3 % (11.5-14.5); Red Blood Count 2.32 M/uL (4.2-5.4); White Blood Count 8.38 K/uL (4.8-10.8)
[2020-03-24] MEDS: LEVOTHYROXINE SODIUM 75 MCG TABLET PO SCH (05:33)
[2020-03-24] MEDS: ACETAMINOPHEN 325 MG TAB PO PRN (05:33)
[2020-03-24 05:54] LABS: INR 2.2 (0.9-1.1); Partial Thromboplastin Ratio 3.2; Prothrombin Time 22.4 Seconds (9.0-12.0)
[2020-03-24 06:08] LABS: Basophilic Stippling 1+
[2020-03-24 06:21] LABS: Partial Thromboplastin Time 90.5 Seconds (21.0-31.0)
[2020-03-24] MEDS: METOPROLOL TARTRATE 100 MG TAB PO SCH ×2 (08:30→19:28)
[2020-03-24] MEDS: PANTOprazole 40 MG TAB PO SCH (08:31)
[2020-03-24] MEDS: DORZOLAMIDE/TIMOLOL 22.3/6.8MG/ML 10 ML BTL OP SCH ×2 (08:32→19:27)
[2020-03-24] MEDS: CALCIUM 600MG + VIT D 400 IU TAB PO SCH (08:32)
[2020-03-24] MEDS: LOSARTAN POTASSIUM 50 MG TAB PO SCH ×2 (08:33→09:12)
--- NOTE | 2020-03-24 08:42 | Gastroenterology Progress Note ---
Date of Service March 24, 2020 Assessment & Plan (1) Choledocholithiasis: 89 y/o female with PMhx a-fib, tachy-fahad syndrome, s/p pacemaker, AVR/MVR/TVR, on Coumadin, HTN, cirrhosis and others admitted after fall at home, and GI consulted for US ABD + for choledocholithiasis, cholelithiasis, with equivocal findings for acute cholecystitis, tbili 4.7. She is noted to have some mild jaundice on exam; reports several day history of n/v/abd discomfort which is improved with medications at present. Abd is soft but mildly distended; she's afebrile, HD stable. INR being reversed with Kcentra, Vit K. S/P ERCP w/ sphincterotomy and balloon extraction of gallstones, feeling well tolerating PO intake. Drop in HGB this AM 7.6 from 11 w/ BUN 34 possible oozing from sphincterotomy given resumption of AC - GI would recommend to hold AC for 48 hours - No need to reverse INR - Can continue diet - Trend H&H - Monitor and document GI output - Transfuse PRN - If continued drop in HGB or change in clinical status would consider EGD/ERCP to evaluate sphincterotomy - Consider surgery consult for cholecystectomy Thank you for allowing us to participate in the care of this patient. Please call with any acute changes, questions or concerns. Please see addendum below with additional recommendation from my supervising physician. Discussed with biliary service as well. Admission and Anticipated Discharge Date Admission Date: March 21, 2020 Supervising Physician Co-Signing Physician Notes I have personally seen and examined the patient with NATASHA Wetzel. Her note reflects my exam and findings. I agree with her impression and plan. Cont to follow H/H. Transfuse as need be. If she continues to show signs of active bleeding she will require endoscopic Tx. Arnaldo Samuel M.D. Subjective Pt was seen and evaluated, chart reviewed. Nursing at bedside. Just finished breakfast. No concerns verbalized. No abd pain. Tolerating PO. No nausea/vomiting No BM reported since admission. No black or bloody stools. Downtrending HGB w/ slight BUN elevation. AC was resumed. Review of Systems Eyes: no icterus Cardiovascular: as per Subjective / HPI Gastrointestinal: as per Subjective / HPI Neurologic: + falls Hematologic / Lymphatic: bruising on legs from falls Physical Exam Constitutional: + ill appearing (chronically ill appearing); no acute distress Neck: trachea midline Respiratory: normal respiratory effort Gastrointestinal (Abdomen): Percussion/Palpation: abdomen soft; abdomen nontender, no guarding and abdomen not rigid Skin: no rashes, warm and dry Results & Data ([facility]) Vital Signs (Past 12 Hours) Vital Signs Temp Pulse Pulse Resp BP Pulse Ox 03/24/20 07:17 36.7 C 62 18 114/61 98 03/24/20 04:32 36.8 C 65 20 106/55 L 97 03/24/20 00:05 60 03/23/20 22:45 37.2 C 65 20 112/54 L 97
[2020-03-24] MEDS: WARFARIN SOD 4 MG TAB PO SCH (09:11)
[2020-03-24] MEDS: FUROSEMIDE 40 MG in SYRINGE 0 ML IV SCH ×2 (09:13→18:10)
[2020-03-24] MEDS: POLYETHYLENE (MIRALAX) 17 GM PACK PO SCH (09:21)
[2020-03-24] MEDS ORDERED: SODIUM CHLORIDE 0.9% 250 ML IV PRN ×2 (09:26→11:23)
[2020-03-24] MEDS: MAGNESIUM SULFATE / D5W 1 GM/100 ML BAG IV SCH ×2 (09:27→11:27)
[2020-03-24 09:54] LABS: Hematocrit (blood only) 22.5 % (37-47); Hemoglobin 7.6 g/dL (12.0-16.0)
--- NOTE | 2020-03-24 10:20 | Cardiology Progress Note ---
Date of Service March 24, 2020 Assessment & Plan (1) Anemia due to blood loss: (2) Acute on chronic diastolic (congestive) heart failure: (3) Atrial fibrillation: (4) Choledocholithiasis: (5) H/O mechanical aortic valve replacement: (6) Hypoxia: (7) Subtherapeutic international normalized ratio (INR): Discontinue IV heparin. Warfarin will be placed on hold at this time. Repeat H/H stat. If rectal exam demonstrates melena, or BRP, will add p.o. vitamin K. Type and cross 2 units packed red blood cells with plans for transfusion of 1 unit now. Serial H/H. Hold amlodipine and losartan. Patient will receive a.m. dose of IV Lasix. Continue to follow daily weight, fluid balance, GFR, and electrolytes. Admission and Anticipated Discharge Date Admission Date: March 21, 2020 Subjective Patient seen and examined the bedside. Denies chest pain or shortness of breath. No signs/symptoms of GI blood loss. Hypoxia unchanged. Oxygen saturation 98% on 2 L nasal cannula. Hemoglobin trending downward to 7.6 today. No evidence of bright red blood per rectum or melena per discussion with nursing. A.m. losartan on hold. Amlodipine on hold since admission due to borderline hypotension. Patient denies abdominal pain, nausea, or diarrhea. Review of Systems Review of Systems: All systems reviewed & are unremarkable except as noted in HPI & below Physical Exam Constitutional: well nourished and + ill appearing; no acute distress Respiratory: normal respiratory effort; no respiratory distress, no labored breathing and no retractions Auscultation: + crackles (Scant crackles at the bases bilaterally); no rales, no rhonchi and no wheezes Cardiovascular: Rate/Rhythm: regular rate Heart Sounds: normal S1, normal S2 and + murmur (2/6 systolic ejection murmur heard best at the right second intercostal space) Vessels: radial pulses present; no JVD and no carotid bruit Extremities: + edema (+ Bilateral pretibial edema, right lower extremity ecchymosis) Gastrointestinal (Abdomen): Inspection/Auscultation: abdomen normal to inspection and normal bowel sounds; abdomen not distended Percussion/Palpation: abdomen soft; abdomen nontender, no guarding and abdomen not rigid Skin: no rashes, warm and dry Neurologic: PERRL, EOMI, accommodation nl, no face palsy, no dysarthria moves all extremities; no focal motor deficits Speech / Cognition: normal speech Motor/Sensory: no tremor Results & Data ([facility]) Vital Signs (Past 12 Hours) Vital Signs Temp Pulse Pulse Resp BP Pulse Ox 03/24/20 08:38 60 106/47 L 03/24/20 07:17 36.7 C 62 18 114/61 98 03/24/20 07:00 60 03/24/20 04:32 36.8 C 65 20 106/55 L 97 03/24/20 00:05 60 03/23/20 22:45 37.2 C 65 20 112/54 L 97 (1) Atrial fibrillation Atrial fibrillation type: unspecified Qualified Code(s): I48.91 - Unspecified atrial fibrillation
[2020-03-24] MEDS ORDERED: PANTOprazole 80 MG in DEXTROSE 5% 100 ML IV STA (10:41)
[2020-03-24] MEDS ORDERED: bisacodyL 5 MG TABEC PO ONE (11:23)
--- NOTE | 2020-03-24 11:26 | Hospitalist Progress Note ---
Date of Service March 24, 2020 Assessment & Plan (1) Anemia due to blood loss: Pt with heme+ stool today via EUGENIE. Pt with significant bruising/bleeding into RLE from recent fall. Suspect combination of the 2 issues contributing to acute blood loss. T/C 2 units PRBCs; Tx 1 unit now followed by lasix. Repeat H/H post-Tx. Then CBC in am. GI following - may need repeat ERCP next 48 hours. Cont PPI drip. HOLD asa. HOLD heparin drip. HOLD coumadin. May need vitamin K depending on trend of H/H. (2) Heme positive stool: as above. during ERCP upper GI tract was grossly normal without any active bleeding. small bowel bleeding ? other ? (3) Choledocholithiasis: s/p ERCP on 03/21. numerous stones extracted. sphincterotomy performed. no stent placed. may need repeat ERCP per GI within the next 48 hours. trend LFTs. no signs of acute cholecystitis at this time. no plans per gen surg for cholecystectomy at this time - poor candidate for such (4) Acute on chronic diastolic (congestive) heart failure: ongoing. cont IV lasix diuresis. serial labs and exam. appreciate cardiology consultation. (5) H/O mechanical aortic valve replacement: despite such need to hold heparin and coumadin in light of acute blood loss anemia. consider vitamin K if bleeding continues. (6) Atrial fibrillation: cont metoprolol BID see above re: anticoagulation (7) Adult hypothyroidism: TSH wnl cont synthroid (8) Pulmonary hypertension: severe noted (9) Chronic hyponatremia: with acute component presenting Na was 120 today 131 improving with diuresis BMP am (10) Fracture, thoracic vertebra: osteoporotic in nature, 2nd to fall pain control TLSO brace appreciate orthopedic consultation (11) Hypomagnesemia: replace 2 grams mag sulfate repeat level in am (12) HTN (hypertension): cont to hold amlodipine cont BB cont ARB (13) Status post placement of cardiac pacemaker: noted (14) Shoulder pain, right: check x-rays, r/o fracture had fall recently with significant trauma (15) Constipation: severe dulcolax suppos x 1 now bowel maintenance (16) DVT prophylaxis: chemical means contraindicated at this time in light of acute blood loss anemia SCDs son updated extensively by phone today Admission and Anticipated Discharge Date Admission Date: March 21, 2020 Subjective patient very upset during the visit. tearful at times. states she has a strong anais and mentions "I've had a good life." she realizes how ill she is. has not had a BM since admission. no overt rectal bleeding or melena. right leg is uncomfortable, and right shoulder is as well. c/o dyspnea on exertion but none at rest. denies any abdominal pain. Review of Systems Constitutional: + fatigue; no fever and no chills Respiratory: + cough and + dyspnea on exertion Cardiovascular: + edema; no chest pain Gastrointestinal: no abdominal pain, no nausea and no vomiting Physical Exam Constitutional: + ill appearing; no acute distress and no altered mental status ENMT: external ear and nose normal, oropharynx normal Respiratory: no respiratory distress Auscultation: + crackles Cardiovascular: Rate/Rhythm: regular rate and regular rhythm Heart Sounds: normal S1, normal S2, + click (Mechanical valve closure sound ) and + murmur (1-2/6 systolic murmur LLSB) Vessels: + JVD, posterior tibial pulses present and dorsalis pedis pulses present Extremities: + edema (Severe, RLE, from foot to hip; <1+ on left ) EUGENIE - performed in presence of nursing staff - external hemorrhoid present; fecal impaction with hard stool; stool dark but not gross melena; no BRBPR; no masses; stool sent for fecal occult to lab Gastrointestinal (Abdomen): normal bowel sounds, soft, nontender, no hepatosplenomegaly Musculoskeletal: right shoulder w/o deformity or effusion; right leg with severe ecchymoses and edema from hip down to the foot Skin: + ecchymosis (Extensive - RLE ) and + pallor Psychiatric: Orientation: alert and oriented x 3 Affect: + tearful affect Results & Data Results & Data ([facility]) Vital Signs (Past 12 Hours) Vital Signs Temp Pulse Pulse Resp BP Pulse Ox 03/24/20 10:54 37.0 C 70 16 122/53 L 94 03/24/20 08:38 60 106/47 L 03/24/20 07:17 36.7 C 62 18 114/61 98 03/24/20 07:00 60 03/24/20 04:32 36.8 C 65 20 106/55 L 97 03/24/20 00:05 60 Laboratory Results Laboratory Results - last 24 hr 03/23/20 03/24/20 03/24/20 11:27 05:18 05:18 WBC 8.38 RBC 2.32 L Hgb 7.6 L Hct 22.9 L MCV 98.7 MCH 32.8 MCHC 33.2 RDW Std Deviation 60.0 H RDW Coeff of Sia 17.3 H Plt Count 119 L MPV 8.8 Immature Gran % (Auto) 0.7 Neut % (Auto) 70.0 Lymph % (Auto) 14.2 [place] % (Auto) 12.4 Eos % (Auto) 2.6 Baso % (Auto) 0.1 Neut # (Auto) 5.86 Lymph # (Auto) 1.19 L [place] # (Auto) 1.04 H Eos # (Auto) 0.22 Baso # (Auto) 0.01 Immature Gran # (Auto) 0.06 H Basophilic Stippling 1+ PT INR APTT PTT Ratio Sodium 131 L Potassium 3.6 Chloride 93 L Carbon Dioxide 35 H Anion Gap 3.0 BUN 34 H Creatinine 0.58 L Est Cr Clr Drug Dosing 70.9 Est GFR ( Amer) 95.4 Est GFR (Non-Af Amer) 82.3 BUN/Creatinine Ratio 59.8 H Glucose 92 Calcium 8.2 L Magnesium 1.8 1.6 L Blood Type Blood Type Recheck Antibody Screen Crossmatch 03/24/20 03/24/20 03/24/20 05:18 05:18 09:29 WBC RBC Hgb Hct MCV MCH MCHC RDW Std Deviation RDW Coeff of Sia Plt Count MPV Immature Gran % (Auto) Neut % (Auto) Lymph % (Auto) [place] % (Auto) Eos % (Auto) Baso % (Auto) Neut # (Auto) Lymph # (Auto) [place] # (Auto) Eos # (Auto) Baso # (Auto) Immature Gran # (Auto) Basophilic Stippling PT 22.4 H INR 2.2 H APTT 90.5 H* PTT Ratio 3.2 Sodium Potassium Chloride Carbon Dioxide Anion Gap BUN Creatinine Est Cr Clr Drug Dosing Est GFR ( Amer) Est GFR (Non-Af Amer) BUN/Creatinine Ratio Glucose Calcium Magnesium Blood Type A Positive Blood Type Recheck A Positive Antibody Screen NEGATIVE Crossmatch See Detail 03/24/20 09:29 WBC RBC Hgb 7.6 L Hct 22.5 L MCV MCH MCHC RDW Std Deviation RDW Coeff of Sia Plt Count MPV Immature Gran % (Auto) Neut % (Auto) Lymph % (Auto) [place] % (Auto) Eos % (Auto) Baso % (Auto) Neut # (Auto) Lymph # (Auto) [place] # (Auto) Eos # (Auto) Baso # (Auto) Immature Gran # (Auto) Basophilic Stippling PT INR APTT PTT Ratio Sodium Potassium Chloride Carbon Dioxide Anion Gap BUN Creatinine Est Cr Clr Drug Dosing Est GFR ( Amer) Est GFR (Non-Af Amer) BUN/Creatinine Ratio Glucose Calcium Magnesium Blood Type Blood Type Recheck Antibody Screen Crossmatch PG Care Time/CCT Total # of Minutes Spent Total Time Spent with Patient: Total time spent is greater than 50% in coordination of care (as documented) at patient's floor/unit and/or counseling patient: Coding Level of Care Code 84472 Subseq Hosp Care Lvl 3 Diagnoses Anemia due to blood loss D50.0 Heme positive stool R19.5 Choledocholithiasis K80.50 Acute on chronic diastolic (congestive) heart failure I50.33 H/O mechanical aortic valve replacement Z95.2 Atrial fibrillation I48.91 Atrial fibrillation type: unspecified Adult hypothyroidism E03.9 Pulmonary hypertension I27.20 Chronic hyponatremia E87.1 Fracture, thoracic vertebra S22.009A Hypomagnesemia E83.42 HTN (hypertension) I10 Status post placement of cardiac pacemaker Z95.0 Shoulder pain, right M25.511 Constipation K59.00 DVT prophylaxis Z29.9 (1) Atrial fibrillation Atrial fibrillation type: unspecified Qualified Code(s): I48.91 - Unspecified atrial fibrillation
[2020-03-24] MEDS: PANTOprazole 40 MG in DEXTROSE 5% 100 ML IV SCH ×3 (11:53→22:30)
--- NOTE | 2020-03-24 12:17 | Surgery Progress Note ---
Date of Service March 24, 2020 Assessment & Plan (1) Choledocholithiasis: Choledocholithiasis treated with ERCP. She still has cholelithiasis. Discussed plan is for consideration for endoscopic performance of a duodenal cholecystostomy stent. Anemia with multiple possible etiologies including bleeding into her thigh with her fall as well as possibility of some oozing from the sphincterotomy site Undergoing transfusion Hemoccult is pending May need EGD if Hemoccult positive and anemia persists Admission and Anticipated Discharge Date Admission Date: March 21, 2020 Subjective Abdomen feels a little sore today No sharp stabbing pain Tolerating diet but has a decreased appetite Denies nausea and vomiting Has not had a bowel movement in 3 or 4 days Physical Exam Gastrointestinal (Abdomen): Inspection/Auscultation: abdomen not distended Percussion/Palpation: + abdomen tender (Minimal diffuse) and abdomen soft Results & Data ([facility]) Vital Signs (Past 12 Hours) Vital Signs Temp Pulse Pulse Resp BP BP Pulse Ox 03/24/20 11:43 37.0 C 60 18 106/49 L 97 03/24/20 10:54 37.0 C 70 16 122/53 L 94 03/24/20 08:38 60 106/47 L 03/24/20 07:17 36.7 C 62 18 114/61 98 03/24/20 07:00 60 03/24/20 04:32 36.8 C 65 20 106/55 L 97 Laboratory Results 03/24/20 03/24/20 03/24/20 Range/Units 11:25 09:29 09:29 WBC (4.8-10.8) K/uL RBC (4.2-5.4) M/uL Hgb 7.6 L (12.0-16.0) g/dL Hct 22.5 L (37-47) % MCV (80-100) fL MCH (25-34) pg MCHC (32-36) g/dL RDW Std Deviation (36.4-46.3) fL RDW Coeff of Sia (11.5-14.5) % Plt Count (130-400) K/uL MPV (7.4-10.4) fL Immature Gran % (Auto) % Neut % (Auto) % Lymph % (Auto) % Crowley % (Auto) % Eos % (Auto) % Baso % (Auto) % Neut # (Auto) (1.4-6.5) K/uL Lymph # (Auto) (1.2-3.4) K/uL Crowley # (Auto) (0.11-0.59) K/uL Eos # (Auto) (0-0.5) K/uL Baso # (Auto) (0-0.2) K/uL Immature Gran # (Auto) (0.00-0.02) K/uL Basophilic Stippling PT (9.0-12.0) Seconds INR (0.9-1.1) APTT (21.0-31.0) Seconds PTT Ratio Magnesium (1.8-2.4) mg/dl Stool Occult Bld Scrn Positive A (Negative) Blood Type A Positive Blood Type Recheck Antibody Screen NEGATIVE Crossmatch See Detail 03/24/20 03/24/20 03/24/20 Range/Units 05:18 05:18 05:18 WBC (4.8-10.8) K/uL RBC (4.2-5.4) M/uL Hgb (12.0-16.0) g/dL Hct (37-47) % MCV (80-100) fL MCH (25-34) pg MCHC (32-36) g/dL RDW Std Deviation (36.4-46.3) fL RDW Coeff of Sia (11.5-14.5) % Plt Count (130-400) K/uL MPV (7.4-10.4) fL Immature Gran % (Auto) % Neut % (Auto) % Lymph % (Auto) % Crowley % (Auto) % Eos % (Auto) % Baso % (Auto) % Neut # (Auto) (1.4-6.5) K/uL Lymph # (Auto) (1.2-3.4) K/uL Crowley # (Auto) (0.11-0.59) K/uL Eos # (Auto) (0-0.5) K/uL Baso # (Auto) (0-0.2) K/uL Immature Gran # (Auto) (0.00-0.02) K/uL Basophilic Stippling PT 22.4 H (9.0-12.0) Seconds INR 2.2 H (0.9-1.1) APTT 90.5 H* (21.0-31.0) Seconds PTT Ratio 3.2 Magnesium 1.6 L (1.8-2.4) mg/dl Stool Occult Bld Scrn (Negative) Blood Type Blood Type Recheck A Positive Antibody Screen Crossmatch 03/24/20 Range/Units 05:18 WBC 8.38 (4.8-10.8) K/uL RBC 2.32 L (4.2-5.4) M/uL Hgb 7.6 L (12.0-16.0) g/dL Hct 22.9 L (37-47) % MCV 98.7 (80-100) fL MCH 32.8 (25-34) pg MCHC 33.2 (32-36) g/dL RDW Std Deviation 60.0 H (36.4-46.3) fL RDW Coeff of Sia 17.3 H (11.5-14.5) % Plt Count 119 L (130-400) K/uL MPV 8.8 (7.4-10.4) fL Immature Gran % (Auto) 0.7 % Neut % (Auto) 70.0 % Lymph % (Auto) 14.2 % Crowley % (Auto) 12.4 % Eos % (Auto) 2.6 % Baso % (Auto) 0.1 % Neut # (Auto) 5.86 (1.4-6.5) K/uL Lymph # (Auto) 1.19 L (1.2-3.4) K/uL Crowley # (Auto) 1.04 H (0.11-0.59) K/uL Eos # (Auto) 0.22 (0-0.5) K/uL Baso # (Auto) 0.01 (0-0.2) K/uL Immature Gran # (Auto) 0.06 H (0.00-0.02) K/uL Basophilic Stippling 1+ PT (9.0-12.0) Seconds INR (0.9-1.1) APTT (21.0-31.0) Seconds PTT Ratio Magnesium (1.8-2.4) mg/dl Stool Occult Bld Scrn (Negative) Blood Type Blood Type Recheck Antibody Screen Crossmatch
[2020-03-24] MEDS ORDERED: bisacodyL 10 MG SUPP PR STA (12:44)
--- NOTE | 2020-03-24 21:20 | XRay Report ---
RIGHT SHOULDER 3 VIEWS HISTORY: Right shoulder pain. recent fall, pain; eval Fx, etc COMPARISON: None. FINDINGS: There is no fracture or dislocation. Soft tissues are unremarkable. The bones are osteopeni c. Ossific tendinitis of the supraspinatus tendon is noted. Moderate degenerative changes within the right shoulder. The right clavicle appears intact. IMPRESSION: Chronic changes within the right shoulder. No fracture or dislocation. ACT 112: Negative or not required by law. Electronically signed by: Ilya Russ M.D. 03/24/2020 9:19 PM
[2020-03-24 21:25] LABS: Hematocrit (blood only) 24.9 % (37-47); Hemoglobin 8.2 g/dL (12.0-16.0)
[2020-03-25] MEDS: PANTOprazole 40 MG in DEXTROSE 5% 100 ML IV SCH ×5 (01:53→21:23)
[2020-03-25] MEDS: LEVOTHYROXINE SODIUM 75 MCG TABLET PO SCH (06:05)
[2020-03-25 07:14] LABS: Hematocrit (blood only) 24.1 % (37-47); Hemoglobin 7.8 g/dL (12.0-16.0); Mean Corpuscular Hgb Conc 32.4 g/dL (32-36); Mean Corpuscular Volume 98.8 fL (80-100); Mean Platelet Volume 9.6 fL (7.4-10.4); Platelet Count 127 K/uL (130-400); RDW Coefficient of Variation 17.9 % (11.5-14.5); RDW Standard Deviation 61.8 fL (36.4-46.3); Red Blood Count 2.44 M/uL (4.2-5.4); White Blood Count 7.95 K/uL (4.8-10.8)
[2020-03-25 07:47] LABS: BUN Creatinine Ratio 56.2 (10-20); Calcium 8.9 mg/dl (8.5-10.1); Creatinine Clr Calc Pharmacy 83.2 ml/min; Est GFR (African American) 100.8; Magnesium 1.8 mg/dl (1.8-2.4); Potassium 3.8 mmol/L (3.5-5.1)
[2020-03-25] MEDS: DORZOLAMIDE/TIMOLOL 22.3/6.8MG/ML 10 ML BTL OP SCH ×2 (08:08→20:27)
[2020-03-25] MEDS: CALCIUM 600MG + VIT D 400 IU TAB PO SCH (08:09)
[2020-03-25] MEDS: FUROSEMIDE 40 MG in SYRINGE 0 ML IV SCH ×2 (08:10→16:13)
[2020-03-25] MEDS: PANTOprazole 40 MG TAB PO SCH (08:12)
[2020-03-25] MEDS: POLYETHYLENE (MIRALAX) 17 GM PACK PO SCH (08:12)
[2020-03-25 08:13] LABS: INR 3.4 (0.9-1.1); Prothrombin Time 33.2 Seconds (9.0-12.0)
[2020-03-25] MEDS: METOPROLOL TARTRATE 100 MG TAB PO SCH ×2 (08:13→20:28)
[2020-03-25] MEDS: LOSARTAN POTASSIUM 50 MG TAB PO SCH (08:13)
[2020-03-25] MEDS ORDERED: SODIUM CHLORIDE 0.9% 250 ML IV PRN (08:46)
--- NOTE | 2020-03-25 08:51 | Gastroenterology Progress Note ---
Date of Service March 25, 2020 Assessment & Plan (1) Choledocholithiasis: 89 y/o female with PMhx a-fib, tachy-fahad syndrome, s/p pacemaker, AVR/MVR/TVR, on Coumadin, HTN, cirrhosis and others admitted after fall at home, and GI consulted for US ABD + for choledocholithiasis, cholelithiasis, with equivocal findings for acute cholecystitis, tbili 4.7. She is noted to have some mild jaundice on exam; reports several day history of n/v/abd discomfort which is improved with medications at present. Abd is soft but mildly distended; she's afebrile, HD stable. INR being reversed with Kcentra, Vit K. S/P ERCP w/ sphincterotomy and balloon extraction of gallstones, feeling well tolerating PO intake. Drop in HGB this AM 7.6 from 11 w/ BUN 34 possible oozing from sphincterotomy given resumption of AC. Remained stable overnnight s/p 1 unit RBC - GI would recommend to hold AC for 48 hours - Can resume tomorrow AM if HGB remained stable - No need to reverse INR - Can continue diet - Trend H&H - Monitor and document GI output - Transfuse PRN - If continued drop in HGB or change in clinical status would consider EGD/ERCP to evaluate sphincterotomy - Consider surgery consult for cholecystectomy Will sign off. Thank you for allowing us to participate in the care of this patient. Please call with any acute changes, questions or concerns. Please see addendum below with additional recommendation from my supervising physician. Discussed with biliary service as well. Admission and Anticipated Discharge Date Admission Date: March 21, 2020 Supervising Physician Co-Signing Physician Notes I have personally seen and examined the patient with NATASHA Wetzel. Her note reflects my exam and findings. I agree with her impression and plan. No melena. Patient responding to transfusion. Cont conservative management. Arnaldo Samuel M.D. Subjective Pt was seen and evaluated, chart reviewed S/P 1 unit RBCs HGB stable No nausea/vomiting No black stools. Had a small formed brown stool yesterday Review of Systems Constitutional: no fever and no weight gain Respiratory: no cough Cardiovascular: no chest pain Gastrointestinal: no abdominal pain Physical Exam Constitutional: + ill appearing (chronically ill appearing); no acute distress Neck: trachea midline Respiratory: normal respiratory effort Gastrointestinal (Abdomen): Percussion/Palpation: abdomen soft; abdomen nontender, no guarding and abdomen not rigid Skin: no rashes, warm and dry Results & Data ([facility]) Vital Signs (Past 12 Hours) Vital Signs Temp Pulse Pulse Resp BP BP Pulse Ox 03/25/20 08:14 60 109/54 L 03/25/20 07:35 36.7 C 58 L 20 129/62 92 03/25/20 07:00 66 03/25/20 03:32 36.8 C 59 L 18 122/58 L 97 03/25/20 00:41 60 03/24/20 23:20 37 C 62 16 121/54 L 99 Laboratory Results 03/25/20 03/25/20 03/25/20 Range/Units 07:05 06:40 06:25 WBC 7.95 (4.8-10.8) K/uL RBC 2.44 L (4.2-5.4) M/uL Hgb 7.8 L (12.0-16.0) g/dL Hct 24.1 L (37-47) % MCV 98.8 (80-100) fL MCH 32.0 (25-34) pg MCHC 32.4 (32-36) g/dL RDW Std Deviation 61.8 H (36.4-46.3) fL RDW Coeff of Sia 17.9 H (11.5-14.5) % Plt Count 127 L (130-400) K/uL MPV 9.6 (7.4-10.4) fL PT 33.2 H (9.0-12.0) Seconds INR 3.4 H (0.9-1.1) Sodium 133 L (136-145) mmol/L Potassium 3.8 (3.5-5.1) mmol/L Chloride 93 L (98-107) mmol/L Carbon Dioxide 37 H (21-32) mmol/L Anion Gap 4.0 (3-11) BUN 28 H (7-18) mg/dl Creatinine 0.49 L (0.6-1.2) mg/dl Est Cr Clr Drug Dosing 83.2 ml/min Est GFR ( Amer) 100.8 Est GFR (Non-Af Amer) 87.0 BUN/Creatinine Ratio 56.2 H (10-20) Glucose 101 H (70-99) mg/dl Calcium 8.9 (8.5-10.1) mg/dl Magnesium 1.8 (1.8-2.4) mg/dl Stool Occult Bld Scrn (Negative) Blood Type Blood Type Recheck Antibody Screen Crossmatch 03/24/20 03/24/20 03/24/20 Range/Units 21:17 11:25 09:29 WBC (4.8-10.8) K/uL RBC (4.2-5.4) M/uL Hgb 8.2 L 7.6 L (12.0-16.0) g/dL Hct 24.9 L 22.5 L (37-47) % MCV (80-100) fL MCH (25-34) pg MCHC (32-36) g/dL RDW Std Deviation (36.4-46.3) fL RDW Coeff of Sia (11.5-14.5) % Plt Count (130-400) K/uL MPV (7.4-10.4) fL PT (9.0-12.0) Seconds INR (0.9-1.1) Sodium (136-145) mmol/L Potassium (3.5-5.1) mmol/L Chloride (98-107) mmol/L Carbon Dioxide (21-32) mmol/L Anion Gap (3-11) BUN (7-18) mg/dl Creatinine (0.6-1.2) mg/dl Est Cr Clr Drug Dosing ml/min Est GFR ( Amer) Est GFR (Non-Af Amer) BUN/Creatinine Ratio (10-20) Glucose (70-99) mg/dl Calcium (8.5-10.1) mg/dl Magnesium (1.8-2.4) mg/dl Stool Occult Bld Scrn Positive A (Negative) Blood Type Blood Type Recheck Antibody Screen Crossmatch 03/24/20 03/24/20 Range/Units 09:29 05:18 WBC (4.8-10.8) K/uL RBC (4.2-5.4) M/uL Hgb (12.0-16.0) g/dL Hct (37-47) % MCV (80-100) fL MCH (25-34) pg MCHC (32-36) g/dL RDW Std Deviation (36.4-46.3) fL RDW Coeff of Sia (11.5-14.5) % Plt Count (130-400) K/uL MPV (7.4-10.4) fL PT (9.0-12.0) Seconds INR (0.9-1.1) Sodium (136-145) mmol/L Potassium (3.5-5.1) mmol/L Chloride (98-107) mmol/L Carbon Dioxide (21-32) mmol/L Anion Gap (3-11) BUN (7-18) mg/dl Creatinine (0.6-1.2) mg/dl Est Cr Clr Drug Dosing ml/min Est GFR ( Amer) Est GFR (Non-Af Amer) BUN/Creatinine Ratio (10-20) Glucose (70-99) mg/dl Calcium (8.5-10.1) mg/dl Magnesium (1.8-2.4) mg/dl Stool Occult Bld Scrn (Negative) Blood Type A Positive Blood Type Recheck A Positive Antibody Screen NEGATIVE Crossmatch See Detail
--- NOTE | 2020-03-25 08:56 | Hospitalist Progress Note ---
Date of Service March 25, 2020 Assessment & Plan (1) Anemia due to blood loss: Pt with heme+ stool and today's stool s/p enema was indeed grossly melena/tarry. Pt with significant bruising/bleeding into RLE from recent fall as well. Suspect combination of the 2 issues contributing to acute blood anemia but feel GI bleeding is now playing larger beto. s/p 1 unit PRBCs overnight but H/H have drifted downward again. will give 2nd unit of PRBCs today. Repeat H/H post-Tx. Then CBC in am. GI following - may need repeat EGD/ERCP. Cont PPI drip. HOLD asa. HOLD heparin drip. HOLD coumadin. INR trended upward overnight - give vitamin K 2.5mg IV x 1 now. (2) Heme positive stool: as above. during ERCP upper GI tract was grossly normal without any active bleeding. small bowel bleeding ? other ? spoke with GI who will see her again in am. need for repeat ERCP/EGD? defer to GI. (3) Choledocholithiasis: s/p ERCP on 03/21. numerous stones extracted. sphincterotomy performed. no stent placed. may need repeat ERCP per GI within the next 48 hours - see above. no signs of acute cholecystitis at this time. no plans per gen surg for cholecystectomy at this time - poor candidate for such may have outpatient treatment with Dr Mendoza for this issue (4) Acute on chronic diastolic (congestive) heart failure: ongoing. cont IV lasix diuresis. Na level improving with diuresis. appreciate cardiology consultation. (5) H/O mechanical aortic valve replacement: despite such need to hold heparin and coumadin in light of acute blood loss anemia and apparent active bleeding. vitamin K 2.5mg IV x 1. INR am. (6) Atrial fibrillation: cont metoprolol BID controlled see above re: anticoagulation (7) Adult hypothyroidism: TSH wnl cont synthroid (8) Pulmonary hypertension: severe on echo noted (9) Chronic hyponatremia: with acute component presenting Na was 120 today 133 improving with diuresis BMP am (10) Fracture, thoracic vertebra: osteoporotic in nature, 2nd to fall T10 pain control TLSO brace appreciate orthopedic consultation no plans for surgery check vit D level am (11) Hypomagnesemia: replaced and resolved repeat level in am (12) HTN (hypertension): cont to hold amlodipine cont BB cont ARB (13) Status post placement of cardiac pacemaker: noted (14) Shoulder pain, right: xrays w/o fracture advanced OA (15) Constipation: severe fleets enema x 1 today then bowel maintenance (16) DVT prophylaxis: chemical means contraindicated at this time in light of acute blood loss anemia SCDs son updated extensively by phone again today Admission and Anticipated Discharge Date Admission Date: March 21, 2020 Subjective patient very despondent during the visit. tearful, sad, hopeless. she mentioned the director of advertising sales yesterday came and visited; they prayed together. she c/o ongoing constipation. she c/o mild dyspnea and weakness. did eat all of breakfast this am w/o incident. lastly, she states - like yesterday - that she has "lived a good life" and that she doesn't want to go on like this (bed-bound, etc). Review of Systems Constitutional: + weakness Respiratory: no cough Cardiovascular: + edema (Severe - RLE ); no chest pain Gastrointestinal: + nausea; no abdominal pain and no vomiting Psychiatric: + depression and + hopelessness Physical Exam Constitutional: + ill appearing; no acute distress and no altered mental sta tus ENMT: external ear and nose normal, oropharynx normal Respiratory: no respiratory distress Auscultation: + crackles (Bases) Cardiovascular: Rate/Rhythm: regular rate and regular rhythm Heart Sounds: normal S1, normal S2, + click (Mechanical valve closure sound ) and + murmur (1- 2/6 systolic murmur LLSB) Vessels: + JVD, posterior tibial pulses present and dorsalis pedis pulses present Extremities: + edema (Severe, RLE, from foot to hip; <1+ on left ) Gastrointestinal (Abdomen): normal bowel sounds, soft, nontender, no hepatosplenomegaly Skin: + ecchymosis (Extensive - RLE ) and + pallor Psychiatric: Orientation: alert and oriented x 3 Affect: + tearful affect Results & Data Results & Data ([facility]) Vital Signs (Past 12 Hours) Vital Signs Temp Pulse Pulse Resp BP BP Pulse Ox 03/25/20 08:14 60 109/54 L 03/25/20 07:35 36.7 C 58 L 20 129/62 92 03/25/20 07:00 66 03/25/20 03:32 36.8 C 59 L 18 122/58 L 97 03/25/20 00:41 60 03/24/20 23:20 37 C 62 16 121/54 L 99 Laboratory Results Laboratory Results - last 24 hr 03/24/20 03/24/20 03/24/20 05:18 09:29 09:29 WBC RBC Hgb 7.6 L Hct 22.5 L MCV MCH MCHC RDW Std Deviation RDW Coeff of Sia Plt Count MPV PT INR Sodium Potassium Chloride Carbon Dioxide Anion Gap BUN Creatinine Est Cr Clr Drug Dosing Est GFR ( Amer) Est GFR (Non-Af Amer) BUN/Creatinine Ratio Glucose Calcium Magnesium Stool Occult Bld Scrn Blood Type A Positive Blood Type Recheck A Positive Antibody Screen NEGATIVE Crossmatch See Detail 03/24/20 03/24/20 03/25/20 11:25 21:17 06:25 WBC RBC Hgb 8.2 L Hct 24.9 L MCV MCH MCHC RDW Std Deviation RDW Coeff of Sia Plt Count MPV PT INR Sodium 133 L Potassium 3.8 Chloride 93 L Carbon Dioxide 37 H Anion Gap 4.0 BUN 28 H Creatinine 0.49 L Est Cr Clr Drug Dosing 83.2 Est GFR ( Amer) 100.8 Est GFR (Non-Af Amer) 87.0 BUN/Creatinine Ratio 56.2 H Glucose 101 H Calcium 8.9 Magnesium 1.8 Stool Occult Bld Scrn Positive A Blood Type Blood Type Recheck Antibody Screen Crossmatch 03/25/20 03/25/20 06:40 07:05 WBC 7.95 RBC 2.44 L Hgb 7.8 L Hct 24.1 L MCV 98.8 MCH 32.0 MCHC 32.4 RDW Std Deviation 61.8 H RDW Coeff of Sia 17.9 H Plt Count 127 L MPV 9.6 PT 33.2 H INR 3.4 H Sodium Potassium Chloride Carbon Dioxide Anion Gap BUN Creatinine Est Cr Clr Drug Dosing Est GFR ( Amer) Est GFR (Non-Af Amer) BUN/Creatinine Ratio Glucose Calcium Magnesium Stool Occult Bld Scrn Blood Type Blood Type Recheck Antibody Screen Crossmatch PG Care Time/CCT Total # of Minutes Spent Total Time Spent with Patient: Total time spent is greater than 50% in coordination of care (as documented) at patient's floor/unit and/or counseling patient: Coding Level of Care Code 90262 Subseq Hosp Care Lvl 3 Diagnoses Anemia due to blood loss D50.0 Heme positive stool R19.5 Choledocholithiasis K80.50 Acute on chronic diastolic (congestive) heart failure I50.33 H/O mechanical aortic valve replacement Z95.2 Atrial fibrillation I48.91 Atrial fibrillation type: unspecified Adult hypothyroidism E03.9 Pulmonary hypertension I27.20 Chronic hyponatremia E87.1 Fracture, thoracic vertebra S22.009A Hypomagnesemia E83.42 HTN (hypertension) I10 Status post placement of cardiac pacemaker Z95.0 Shoulder pain, right M25.511 Constipation K59.00 DVT prophylaxis Z29.9 (1) Atrial fibrillation Atrial fibrillation type: unspecified Qualified Code(s): I48.91 - Unspecified atrial fibrillation
[2020-03-25] MEDS ORDERED: PHYTONADIONE 2.5 MG in SODIUM CHLORIDE 0.9% 50 ML IV ONE (09:15)
--- NOTE | 2020-03-25 11:02 | Surgery Progress Note ---
Date of Service March 25, 2020 Assessment & Plan (1) Choledocholithiasis: POD # 4 s/p ERCP with biliary sphincterotomy and balloon extraction of choledocholithiasis. Anemia with multiple possible etiologies including bleeding into her thigh with her fall as well as possibility of some oozing from the sphincterotomy site. S/p 1 unit of PRBCs receiving another unit now. No evidence of acute cholecystitis, no leukocytosis, no abdominal pain Plan: Given her comorbidities, high risk of surgical intervention, and no signs of acute cholecystitis would not recommend cholecystectomy and patient agrees with this. She should adhere to low fat diet knowing she has gallstones still prese nt. Can follow-up with surgery as an outpatient if needed Our services signing off, please call with questions or concerns Dr. Davison has seen patient, present during my examination and agrees with above. Admission and Anticipated Discharge Date Admission Date: March 21, 2020 Subjective "not feeling the best", having another blood transfusion was able to eat breakfast this morning, having some mild abdominal discomfort but not pain small pebble bowel movements yesterday after suppository and Miralax no nausea or vomiting Physical Exam Constitutional: no acute distress and not ill appearing Eyes: + mildly icteric Respiratory: normal respiratory effort; no respiratory distress, no labored breathing and no retractions Gastrointestinal (Abdomen): Inspection/Auscultation: abdomen normal to inspection; abdomen not distended Percussion/Palpation: abdomen soft; abdomen nontender, no guarding and abdomen not rigid Musculoskeletal: RLE with extensive ecchymosis Skin: no rashes, warm and dry Psychiatric: A+Ox3, euthymic affect Results & Data ([facility]) Vital Signs (Past 12 Hours) Vital Signs Temp Pulse Pulse Resp BP BP BP 03/25/20 10:21 36.9 C 59 L 18 118/59 L 03/25/20 09:50 36.4 C L 60 18 118/55 L 03/25/20 09:36 36.4 C L 60 18 112/55 L 03/25/20 09:34 36.7 C 60 18 126/50 L 03/25/20 09:21 36.8 C 60 18 125/56 L 03/25/20 08:14 60 109/54 L 03/25/20 07:35 36.7 C 58 L 20 129/62 09/15/20 07:00 66 03/25/20 03:32 36.8 C 59 L 18 122/58 L 03/25/20 00:41 60 03/24/20 23:20 37 C 62 16 121/54 L Pulse Ox 03/25/20 10:21 03/25/20 09:50 98 03/25/20 09:36 98 03/25/20 09:34 98 03/25/20 09:21 03/25/20 08:14 03/25/20 07:35 92 03/25/20 07:00 03/25/20 03:32 97 03/25/20 00:41 03/24/20 23:20 99 Laboratory Results 03/25/20 03/25/20 03/25/20 Range/Units 07:05 06:40 06:25 WBC 7.95 (4.8-10.8) K/uL RBC 2.44 L (4.2-5.4) M/uL Hgb 7.8 L (12.0-16.0) g/dL Hct 24.1 L (37-47) % MCV 98.8 (80-100) fL MCH 32.0 (25-34) pg MCHC 32.4 (32-36) g/dL RDW Std Deviation 61.8 H (36.4-46.3) fL RDW Coeff of Sia 17.9 H (11.5-14.5) % Plt Count 127 L (130-400) K/uL MPV 9.6 (7.4-10.4) fL PT 33.2 H (9.0-12.0) Seconds INR 3.4 H (0.9-1.1) Sodium 133 L (136-145) mmol/L Potassium 3.8 (3.5-5.1) mmol/L Chloride 93 L (98-107) mmol/L Carbon Dioxide 37 H (21-32) mmol/L Anion Gap 4.0 (3-11) BUN 28 H (7-18) mg/dl Creatinine 0.49 L (0.6-1.2) mg/dl Est Cr Clr Drug Dosing 83.2 ml/min Est GFR ( Amer) 100.8 Est GFR (Non-Af Amer) 87.0 BUN/Creatinine Ratio 56.2 H (10-20) Glucose 101 H (70-99) mg/dl Calcium 8.9 (8.5-10.1) mg/dl Magnesium 1.8 (1.8-2.4) mg/dl Stool Occult Bld Scrn (Negative) Blood Type Antibody Screen Crossmatch 03/24/20 03/24/20 03/24/20 Range/Units 21:17 11:25 09:29 WBC (4.8-10.8) K/uL RBC (4.2-5.4) M/uL Hgb 8.2 L (12.0-16.0) g/dL Hct 24.9 L (37-47) % MCV (80-100) fL MCH (25-34) pg MCHC (32-36) g/dL RDW Std Deviation (36.4-46.3) fL RDW Coeff of Sia (11.5-14.5) % Plt Count (130-400) K/uL MPV (7.4-10.4) fL PT (9.0-12.0) Seconds INR (0.9-1.1) Sodium (136-145) mmol/L Potassium (3.5-5.1) mmol/L Chloride (98-107) mmol/L Carbon Dioxide (21-32) mmol/L Anion Gap (3-11) BUN (7-18) mg/dl Creatinine (0.6-1.2) mg/dl Est Cr Clr Drug Dosing ml/min Est GFR ( Amer) Est GFR (Non-Af Amer) BUN/Creatinine Ratio (10-20) Glucose (70-99) mg/dl Calcium (8.5-10.1) mg/dl Magnesium (1.8-2.4) mg/dl Stool Occult Bld Scrn Positive A (Negative) Blood Type A Positive Antibody Screen NEGATIVE Crossmatch See Detail
--- NOTE | 2020-03-25 12:04 | Cardiology Progress Note ---
Date of Service March 25, 2020 Assessment & Plan (1) Anemia due to blood loss: (2) Acute on chronic diastolic (congestive) heart failure: (3) H/O mechanical aortic valve replacement: (4) Atrial fibrillation: (5) Choledocholithiasis: Transfuse additional 1 unit packed red blood cells today. Follow serial H&H. Monitor for any signs/symptoms of GI blood loss. Patient will receive low-dose vitamin K, 2.5 mg now due to INR trending upward. Repeat INR in a.m. Restart oral anticoagulation when hemoglobin stabilized. Losartan and amlodipine will remain on hold. Continue IV Lasix. Admission and Anticipated Discharge Date Admission Date: March 21, 2020 Subjective Patient seen and examined at the bedside. Received 1 unit of packed red blood cells yesterday. INR trending upward to 3.3 today. No obvious signs of GI blood loss. Hemoglobin 7.8 despite transfusion. Blood pressure and hemodynamics remained stable. Review of Systems Review of Systems: All systems reviewed & are unremarkable except as noted in HPI & below Physical Exam Constitutional: well nourished and + ill appearing; no acute distress Respiratory: normal respiratory effort; no respiratory distress, no labored breathing and no retractions Auscultation: + crackles (Scant crackles at the bases bilaterally); no rales, no rhonchi and no wheezes Cardiovascular: Rate/Rhythm: regular rate Heart Sounds: normal S1, normal S2 and + murmur (2/6 systolic ejection murmur heard best at the right second intercostal space) Vessels: radial pulses present; no JVD and no carotid bruit Extremities: + edema (+ Bilateral pretibial edema, right lower extremity ecchymosis) Gastrointestinal (Abdomen): Inspection/Auscultation: abdomen normal to inspection and normal bowel sounds; abdomen not distended Percussion/Palpation: abdomen soft; abdomen nontender, no guarding and abdomen not rigid Skin: no rashes, warm and dry Neurologic: PERRL, EOMI, accommodation nl, no face palsy, no dysarthria moves all extremities; no focal motor deficits Speech / Cognition: normal speech Motor/Sensory: no tremor Results & Data ([facility]) Vital Signs (Past 12 Hours) Vital Signs Temp Pulse Pulse Resp BP BP BP 03/25/20 11:21 36.8 C 60 16 127/61 03/25/20 10:21 36.9 C 59 L 18 118/59 L 03/25/20 09:50 36.4 C L 60 18 118/55 L 03/25/20 09:36 36.4 C L 60 18 112/55 L 03/25/20 09:34 36.7 C 60 18 126/50 L 03/25/20 09:21 36.8 C 60 18 125/56 L 03/25/20 08:14 60 109/54 L 03/25/20 07:35 36.7 C 58 L 20 129/62 03/25/20 07:00 66 03/25/20 03:32 36.8 C 59 L 18 122/58 L 03/25/20 00:41 60 Pulse Ox 03/25/20 11:21 100 03/25/20 10:21 03/25/20 09:50 98 03/25/20 09:36 98 03/25/20 09:34 98 03/25/20 09:21 03/25/20 08:14 03/25/20 07:35 92 03/25/20 07:00 03/25/20 03:32 97 03/25/20 00:41 (1) Atrial fibrillation Atrial fibrillation type: unspecified Qualified Code(s): I48.91 - Unspecified atrial fibrillation
[2020-03-25 15:21] LABS: Hematocrit (blood only) 25.8 % (37-47); Hemoglobin 8.7 g/dL (12.0-16.0)
[2020-03-26] MEDS: PANTOprazole 40 MG in DEXTROSE 5% 100 ML IV SCH ×2 (01:48→06:16)
[2020-03-26] MEDS: LEVOTHYROXINE SODIUM 75 MCG TABLET PO SCH (06:11)
[2020-03-26 07:01] LABS: Hematocrit (blood only) 26.7 % (37-47); Hemoglobin 8.8 g/dL (12.0-16.0); Mean Corpuscular Hemoglobin 32.2 pg (25-34); Mean Corpuscular Volume 97.8 fL (80-100); Mean Platelet Volume 9.3 fL (7.4-10.4); Platelet Count 122 K/uL (130-400); RDW Coefficient of Variation 18.3 % (11.5-14.5); RDW Standard Deviation 61.7 fL (36.4-46.3); Red Blood Count 2.73 M/uL (4.2-5.4)
[2020-03-26 07:15] LABS: INR 1.3 (0.9-1.1); Prothrombin Time 13.1 Seconds (9.0-12.0)
[2020-03-26 07:40] LABS: Creatinine Clr Calc Pharmacy 81.4 ml/min; Est GFR (African American) 100.2; Est GFR (Non-African American) 86.4; Potassium 3.8 mmol/L (3.5-5.1)
[2020-03-26] MEDS: DORZOLAMIDE/TIMOLOL 22.3/6.8MG/ML 10 ML BTL OP SCH ×2 (08:02→20:16)
[2020-03-26] MEDS: FUROSEMIDE 40 MG in SYRINGE 0 ML IV SCH ×2 (08:06→16:54)
[2020-03-26] MEDS: LOSARTAN POTASSIUM 50 MG TAB PO SCH (08:06)
[2020-03-26] MEDS: METOPROLOL TARTRATE 100 MG TAB PO SCH ×2 (08:06→20:16)
[2020-03-26] MEDS: CALCIUM 600MG + VIT D 400 IU TAB PO SCH (08:06)
[2020-03-26] MEDS: POLYETHYLENE (MIRALAX) 17 GM PACK PO SCH (08:07)
--- NOTE | 2020-03-26 09:37 | Gastroenterology Progress Note ---
Date of Service March 26, 2020 Assessment & Plan (1) Choledocholithiasis: 89 y/o female with PMhx a-fib, tachy-fahad syndrome, s/p pacemaker, AVR/MVR/TVR, on Coumadin, HTN, cirrhosis and others admitted after fall at home, and GI consulted for US ABD + for choledocholithiasis, cholelithiasis, with equivocal findings for acute cholecystitis, tbili 4.7. She is noted to have some mild jaundice on exam; reports several day history of n/v/abd discomfort which is improved with medications at present. Abd is soft but mildly distended; she's afebrile, HD stable. INR being reversed with Kcentra, Vit K. S/P ERCP w/ sphincterotomy and balloon extraction of gallstones, feeling well tolerating PO intake. Drop in HGB this AM 7.6 from 11 w/ BUN 34 possible oozing from sphincterotomy given resumption of AC. Remained stable overnight s/p 2 unit RBC. She had a black stool yesterday, HGB remained stable at 8.8 . Her melena was likely residual given the prior large drop in HGB - No GI contraindication to diet - GI would recommend to hold AC for the remainder of the day - Can resume AC tomorrow AM if HGB remained stable - No need to reverse INR - Can continue diet - Trend H&H - Monitor and document GI output - Transfuse PRN - If continued drop in HGB or change in clinical status would consider EGD/ERCP to evaluate sphincterotomy - Consider surgery consult for cholecystectomy Will sign off. Thank you for allowing us to participate in the care of this patient. Please call with any acute changes, questions or concerns. Please see addendum below with additional recommendation from my supervising physician. Discussed with biliary service as well. Admission and Anticipated Discharge Date Admission Date: March 21, 2020 Supervising Physician Co-Signing Physician Notes I have personally seen and examined the patient with NATASHA Wetzel. Her note reflects my exam and findings. I agree with her impression and plan. Advance diet and follow H/H. Arnaldo Samuel M.D. Subjective GI asked to re-evaluate given a dark stool yesterday No BM since dark stool yesterday. No abd pain No nausea/vomiting Tolerating PO S/P RBC 2 units HGB stable at 8.8 Vitals stable Review of Systems Constitutional: no fever and no fatigue Respiratory: no cough and no dyspnea Cardiovascular: no chest pain Gastrointestinal: no abdominal pain Physical Exam Constitutional: well nourished Neck: trachea midline Respiratory: normal respiratory effort Gastrointestinal (Abdomen): Inspection/Auscultation: abdomen normal to inspection Skin: no rashes, warm and dry Results & Data ([facility]) Vital Signs (Past 12 Hours) Vital Signs Temp Pulse Pulse Resp BP Pulse Ox 03/26/20 07:05 36.7 C 60 20 156/55 H 100 03/26/20 04:13 36.6 C 60 18 136/54 L 94 03/26/20 01:50 60 03/25/20 23:36 36.5 C 101 H 20 134/58 L 99
--- NOTE | 2020-03-26 11:08 | Cardiology Progress Note ---
Date of Service March 26, 2020 Assessment & Plan (1) Subtherapeutic international normalized ratio (INR): (2) Anemia due to blood loss: (3) Acute on chronic diastolic (congestive) heart failure: (4) H/O mechanical aortic valve replacement: (5) Atrial fibrillation: (6) Choledocholithiasis: Hemoglobin stable over the past 24 hours without signs/symptoms of GI blood loss. Recommend restart warfarin today. Repeat INR in a.m. If hemoglobi n remains stable without signs of GI blood loss, consider low-dose intravenous heparin infusion due to presence of mechanical aortic valve replacement and chronic atrial fibrillation. Blood pressure trending upward. Restart losartan, 50 mg daily. Amlodipine will remain on hold for the time being. Admission and Anticipated Discharge Date Admission Date: March 21, 2020 Subjective Patient seen and examined at the bedside. Fluid balance -795 cc over the past 24 hours. Weight is down 3 kg since admission. Blood pressure trending upward. Denies chest pain or unusual shortness of breath. Lower extremity edema and ecchymosis unchanged. No signs/symptoms of GI blood loss. Hemoglobin up to 8.8 g/dL after 2 units of packed red blood cells. Patient received 2.5 mg of vitamin K yesterday. INR today 1.3. Review of Systems Review of Systems: All systems reviewed & are unremarkable except as noted in HPI & below Physical Exam Constitutional: well nourished and + ill appearing; no acute distress Respiratory: normal respiratory effort; no respiratory distress, no labored breathing and no retractions Auscultation: + crackles (Scant crackles at the bases bilaterally); no rales, no rhonchi and no wheezes Cardiovascular: Rate/Rhythm: regular rate Heart Sounds: normal S1, normal S2 and + murmur (2/6 systolic ejection murmur heard best at the right second intercostal space) Vessels: radial pulses present; no JVD and no carotid bruit Extremities: + edema (+ Bilateral pretibial edema, right lower extremity ecchymosis) Gastrointestinal (Abdomen): Inspection/Auscultation: abdomen normal to inspection and normal bowel sounds; abdomen not distended Percussion/Palpation: abdomen soft; abdomen nontender, no guarding and abdomen not rigid Skin: no rashes, warm and dry Neurologic: PERRL, EOMI, accommodation nl, no face palsy, no dysarthria moves all extremities; no focal motor deficits Speech / Cognition: normal speech Motor/Sensory: no tremor Results & Data ([facility]) Vital Signs (Past 12 Hours) Vital Signs Temp Pulse Pulse Resp BP Pulse Ox 03/26/20 07:05 36.7 C 60 20 156/55 H 100 03/26/20 04:13 36.6 C 60 18 136/54 L 94 03/26/20 01:50 60 03/25/20 23:36 36.5 C 101 H 20 134/58 L 99 (1) Atrial fibrillation Atrial fibrillation type: unspecified Qualified Code(s): I48.91 - Unspecified atrial fibrillation
[2020-03-26] MEDS: PANTOprazole 40 MG TAB PO SCH ×2 (12:29→20:16)
--- NOTE | 2020-03-26 12:44 | Hospitalist Progress Note ---
Date of Service March 26, 2020 Assessment & Plan (1) Anemia due to blood loss: Likely combination of GI bleeding and bleeding into RLE leading to acute blood loss anemia. s/p 2 units PRBCs this admission. H/H stable overnight since the 2nd unit was given yesterday am. This would argue that GI bleeding has stopped. GI saw this am again - no plans for repeat EGD/ERCP as long as H/H remain stable. d/c NPO order; allow diet. Stop PPI drip; change to oral PPI twice daily. CBC am. Agree with cardiology - resume coumadin; but continue to hold IV heparin and aspirin. Repeat INR in am. (2) Heme positive stool: as above. during ERCP upper GI tract was grossly normal without any active bleeding. small bowel bleeding ? other ? see above in "anemia due to blood loss." (3) Choledocholithiasis: s/p ERCP on 03/21/20. numerous stones extracted. sphincterotomy performed. no stent placed. no signs of acute cholecystitis at this time. no plans per gen surg for cholecystectomy. may have outpatient treatment with Dr Mendoza for this issue (EUS guided cholecystoduodenostomy using LAMS). this [facility] be performed at [facility]. recent LFTs wnl. (4) Acute on chronic diastolic (congestive) heart failure: ongoing but much improved. suspect we are approaching euvolemia. cont IV lasix today; would hold after tonight's dose; then re-eval need for more IV lasix tomorrow. appreciate Dr Nguyen's assistance. (5) H/O mechanical aortic valve replacement: despite such need to hold heparin in light of acute blood loss anemia s/p vitamin K on 03/25 due to GI bleeding agree with Dr Nguyen to resume coumadin today INR daily (6) Atrial fibrillation: cont metoprolol BID controlled see above re: anticoagulation (7) Adult hypothyroidism: TSH wnl cont synthroid (8) Pulmonary hypertension: severe on echo noted (9) Chronic hyponatremia: resolved. with acute component presenting Na was 120 today 135 improving with diuresis BMP am (10) Fracture, thoracic vertebra: osteoporotic in nature, 2nd to fall T10 pain control TLSO brace appreciate orthopedic consultation no plans for surgery vit D level wnl (11) Hypomagnesemia: replaced and resolved repeat level today wnl (12) HTN (hypertension): cont to hold amlodipine cont BB cont ARB (13) Status post placement of cardiac pacemaker: noted (14) Shoulder pain, right: xrays w/o fracture advanced OA no complaints of pain today follow (15) Constipation: improving with suppositories and enemas add senna 2 tabs daily to miralax follow (16) DVT prophylaxis: chemical means contraindicated at this time in light of acute blood loss anemia SCDs son updated extensively by phone 03/24, 03/25 and 03/26 finally starting to progress cont PT/OT Admission and Anticipated Discharge Date Admission Date: March 21, 2020 Subjective patient overall feeling better today. has mild back pain but tolerable. mild lower abdominal discomfort - attributes it to constipation. feels like she has another BM coming. no chest pain. no dyspnea. no NOWAK with working with PT this am. did better with PT session today. looking forward to eating again. had melena stool yesterday with her enema but H/H stable this am. Review of Systems Constitutional: + fatigue; no fever Respiratory: no cough Cardiovascular: + edema (especially right leg ); no chest pain Gastrointestinal: no nausea and no vomiting Physical Exam Constitutional: no acute distress and no altered mental status looks better today ENMT: external ear and nose normal, oropharynx normal Respiratory: no respiratory distress Auscultation: + crackles (Bases - faint) Cardiovascular: Rate/Rhythm: regular rate and regular rhythm Heart Sounds: normal S1, normal S2, + click (Mechanical valve closure sound ) and + murmur (1- 2/6 systolic murmur LLSB) Vessels: posterior tibial pulses present and dorsalis pedis pulses present; no JVD Extremities: + edema (Severe, RLE, from foot to hip - no change; <1+ on left ) Gastrointestinal (Abdomen): normal bowel sounds, soft, nontender, no hepatosplenomegaly Skin: + ecchymosis (Extensive - RLE - no change ) and + pallor Psychiatric: Orientation: alert and oriented x 3 Results & Data Results & Data ([facility]) Vital Signs (Past 12 Hours) Vital Signs Temp Pulse Pulse Resp BP Pulse Ox 03/26/20 11:42 36.6 C 66 20 128/56 L 98 03/26/20 09:00 60 03/26/20 07:05 36.7 C 60 20 156/55 H 100 03/26/20 04:13 36.6 C 60 18 136/54 L 94 03/26/20 01:50 60 Laboratory Results Laboratory Results - last 24 hr 03/25/20 03/26/20 03/26/20 15:12 06:36 06:36 WBC 6.40 RBC 2.73 L Hgb 8.7 L 8.8 L Hct 25.8 L 26.7 L MCV 97.8 MCH 32.2 MCHC 33.0 RDW Std Deviation 61.7 H RDW Coeff of Sia 18.3 H Plt Count 122 L MPV 9.3 PT INR Sodium 135 L Potassium 3.8 Chloride 92 L Carbon Dioxide 37 H Anion Gap 6.0 BUN 19 H Creatinine 0.50 L Est Cr Clr Drug Dosing 81.4 Est GFR ( Amer) 100.2 Est GFR (Non-Af Amer) 86.4 BUN/Creatinine Ratio 37.0 H Glucose 97 Calcium 9.0 Magnesium 25-OH Vitamin D Total 03/26/20 03/26/20 03/26/20 06:36 06:36 06:36 WBC RBC Hgb Hct MCV MCH MCHC RDW Std Deviation RDW Coeff of Sia Plt Count MPV PT 13.1 H INR 1.3 H Sodium Potassium Chloride Carbon Dioxide Anion Gap BUN Creatinine Est Cr Clr Drug Dosing Est GFR ( Amer) Est GFR (Non-Af Amer) BUN/Creatinine Ratio Glucose Calcium Magnesium 1.8 25-OH Vitamin D Total 46.6 PG Care Time/CCT Total # of Minutes Spent Total Time Spent with Patient: Total time spent is greater than 50% in coordination of care (as documented) at patient's floor/unit and/or counseling patient: Coding Level of Care Code 37659 Subseq Hosp Care Lvl 3 Diagnoses Anemia due to blood loss D50.0 Heme positive stool R19.5 Choledocholithiasis K80.50 Acute on chronic diastolic (congestive) heart failure I50.33 H/O mechanical aortic valve replacement Z95.2 Atrial fibrillation I48.91 Atrial fibrillation type: unspecified Adult hypothyroidism E03.9 Pulmonary hypertension I27.20 Chronic hyponatremia E87.1 Fracture, thoracic vertebra S22.079D Encounter type: subsequent encounter Thoracic vertebra fracture level: T10 Fracture type: closed Fracture morphology: unspecified fracture morphology Fracture healing: with routine healing Hypomagnesemia E83.42 HTN (hypertension) I10 Hypertension type: essential hypertension Status post placement of cardiac pacemaker Z95.0 Shoulder pain, right M25.511 Chronicity: acute Constipation K59.09 Constipation type: other constipation type DVT prophylaxis Z29.9 (1) Atrial fibrillation Atrial fibrillation type: unspecified Qualified Code(s): I48.91 - Unspecified atrial fibrillation (2) Fracture, thoracic vertebra Encounter type: subsequent encounter Thoracic vertebra fracture level: T10 Fracture type: closed Fracture morphology: unspecified fracture morphology Fracture healing: with routine healing Qualified Code(s): S22.079D - Unspecified fracture of T9-T10 vertebra, subsequent encounter for fracture with routine healing (3) HTN (hypertension) Hypertension type: essential hypertension Qualified Code(s): I10 - Essential (primary) hypertension (4) Shoulder pain, right Chronicity: acute Qualified Code(s): M25.511 - Pain in right shoulder (5) Constipation Constipation type: other constipation type Qualified Code(s): K59.09 - Other constipation
[2020-03-26] MEDS: SENNA 8.6 MG TAB PO SCH (14:03)
[2020-03-27] MEDS: LEVOTHYROXINE SODIUM 75 MCG TABLET PO SCH (05:50)
[2020-03-27] MEDS: DORZOLAMIDE/TIMOLOL 22.3/6.8MG/ML 10 ML BTL OP SCH ×2 (07:43→20:25)
[2020-03-27 08:34] LABS: Hematocrit (blood only) 27.2 % (37-47); Mean Corpuscular Hemoglobin 32.3 pg (25-34); Mean Corpuscular Hgb Conc 33.1 g/dL (32-36); Mean Corpuscular Volume 97.5 fL (80-100); Mean Platelet Volume 9.4 fL (7.4-10.4); Platelet Count 137 K/uL (130-400); RDW Coefficient of Variation 18.1 % (11.5-14.5); Red Blood Count 2.79 M/uL (4.2-5.4); White Blood Count 6.08 K/uL (4.8-10.8)
[2020-03-27] MEDS: CALCIUM 600MG + VIT D 400 IU TAB PO SCH (08:36)
[2020-03-27] MEDS: METOPROLOL TARTRATE 100 MG TAB PO SCH ×2 (08:37→20:26)
[2020-03-27] MEDS: LOSARTAN POTASSIUM 50 MG TAB PO SCH (08:37)
[2020-03-27] MEDS: PANTOprazole 40 MG TAB PO SCH ×2 (08:37→20:55)
[2020-03-27] MEDS: SENNA 8.6 MG TAB PO SCH (08:37)
[2020-03-27 08:42] LABS: INR 1.2 (0.9-1.1)
[2020-03-27] MEDS: POLYETHYLENE (MIRALAX) 17 GM PACK PO SCH (08:42)
[2020-03-27 09:12] LABS: BUN Creatinine Ratio 32.1 (10-20); Calcium 8.6 mg/dl (8.5-10.1); Creatinine Clr Calc Pharmacy 84.8 ml/min; Est GFR (African American) 101.5; Est GFR (Non-African American) 87.6; Potassium 3.1 mmol/L (3.5-5.1)
[2020-03-27] MEDS: POTASSIUM CHLORIDE 20 MEQ TABCR PO SCH ×3 (11:12→20:25)
[2020-03-27] MEDS: HEPARIN SODIUM/DEXTROSE 25,000 UNITS/500 ML BAG IV SCH (11:13)
--- NOTE | 2020-03-27 11:34 | Cardiology Progress Note ---
Date of Service March 27, 2020 Assessment & Plan (1) Subtherapeutic international normalized ratio (INR): (2) Anemia due to blood loss: (3) H/O mechanical aortic valve replacement: (4) Atrial fibrillation: (5) Chronic diastolic heart failure: (6) Choledocholithiasis: Hemoglobin stable over the past 48 hours without signs/symptoms of GI blood loss. Initiate low-dose intravenous heparin infusion without bolus. Dose Coumadin daily. Repeat INR in a.m. Blood pressure improved with addition of low-dose losartan, 50 mg daily. (Outpatient dose 100 mg daily). Amlodipine remains on hold. Physical therapy as tolerated. Admission and Anticipated Discharge Date Admission Date: March 21, 2020 Subjective Patient seen and examined at the bedside. Denies chest pain or unusual shortness of breath. Lower extremity edema improving. Hemoglobin trending upward. INR is subtherapeutic. No signs/symptoms of GI blood loss. Offers no new concerns/complaints at this time. Review of Systems Review of Systems: All systems reviewed & are unremarkable except as noted in HPI & below Physical Exam Constitutional: well nourished and + ill appearing; no acute distress Respiratory: normal respiratory effort; no respiratory distress, no labored breathing and no retractions Auscultation: + crackles (Scant crackles at the bases bilaterally); no rales, no rhonchi and no wheezes Cardiovascular: Rate/Rhythm: regular rate Heart Sounds: normal S1, normal S2 and + murmur (2/6 systolic ejection murmur heard best at the right second intercostal space) Vessels: radial pulses present; no JVD and no carotid bruit Extremities: + edema (Trace bilateral pretibial edema, right lower extremity ecchymosis) Gastrointestinal (Abdomen): Inspection/Auscultation: abdomen normal to inspection and normal bowel sounds; abdomen not distended Percussion/Palpation: abdomen soft; abdomen nontender, no guarding and abdomen not rigid Skin: no rashes, warm and dry Neurologic: PERRL, EOMI, accommodation nl, no face palsy, no dysarthria moves all extremities; no focal motor deficits Speech / Cognition: normal speech Motor/Sensory: no tremor Results & Data ([facility]) Vital Signs (Past 12 Hours) Vital Signs Temp Pulse Pulse Resp BP Pulse Ox 03/27/20 07:28 60 03/27/20 07:16 36.7 C 61 18 140/55 L 92 03/27/20 03:12 36.7 C 62 16 121/45 L 93 (1) Atrial fibrillation Atrial fibrillation type: unspecified Qualified Code(s): I48.91 - Unspecified atrial fibrillation
--- NOTE | 2020-03-27 11:53 | Hospitalist Progress Note ---
Date of Service March 27, 2020 Assessment & Plan (1) Anemia due to blood loss: Likely combination of GI bleeding along with bleeding into RLE leading to acute blood loss anemia. s/p 2 units PRBCs this admission. H/H again stable overnight. Melena stool this am likely old blood only. No plans for repeat EGD/ERCP as long as H/H continue to remain stable. Allow AHA diet. Cont PPI bid. Resume heparin infusion without bolus. Cont coumadin 4mg daily. Daily PTT and INR. Daily CBC. (2) Heme positive stool: as above. during ERCP upper GI tract was grossly normal without any active bleeding. small bowel bleeding ? other ? either way H/H stable x 48 hours. resume heparin drip without bolus. cont coumadin cautiously. (3) Choledocholithiasis: s/p ERCP on 03/21/20. numerous stones extracted. sphincterotomy performed. no stent placed. Continues to have NO signs or symptoms of acute cholecystitis. no plans per gen surg for cholecystectomy. may have outpatient treatment with Dr Mendoza for this issue (EUS guided cholecystoduodenostomy using LAMS). this would be performed at [facility]. recent LFTs wnl. (4) Acute on chronic diastolic (congestive) heart failure: acute component improved/likely resolved. placed IV lasix on hold. likely will resume PO lasix BID as preivous. appreciate Dr Nguyen's assistance from [facility]. (5) H/O mechanical aortic valve replacement: s/p vitamin K on 03/25 due to GI bleeding INR now subtherapeutic from such. H/H stable x 48 hours. RESUME HEPARIN DRIP cautiously today. Cont daily coumadin 4mg. Cont daily PTT and INR checks. (6) Atrial fibrillation: cont metoprolol BID controlled pacing on tele see above re: anticoagulation (7) Adult hypothyroidism: TSH wnl cont synthroid (8) Pulmonary hypertension: severe on echo 08/2019 need to assess for ambulatory oxygen at discharge (9) Chronic hyponatremia: with acute component presenting Na was 120 today 132 -- near baseline BMP am (10) Fracture, thoracic vertebra: osteoporotic in nature, 2nd to fall T10 pain control TLSO brace appreciate orthopedic consultation no plans for surgery vit D level wnl (11) Hypomagnesemia: replaced and resolved repeat level in am (12) HTN (hypertension): cont to hold amlodipine cont BB cont ARB controlled (13) Status post placement of cardiac pacemaker: noted pacing on monitor, stable (14) Shoulder pain, right: xrays w/o fracture advanced OA follow (15) Constipation: resolved with suppositories, oral agents, and enemas cont senna with miralax for bowel maintenance (16) Hypokalemia: replace PO repeat K and mag in am (17) DVT prophylaxis: resume heparin drip today cont coumadin daily coags son updated extensively by phone 03/24, 03/25 and 03/26 will update him again today progressing albeit slowly but steadily cont PT/OT Admission and Anticipated Discharge Date Admission Date: March 21, 2020 Subjective patient anxious this am - "too many things happened at once this morning." refers to having breakfast, then having bowel movement, having blood drawn, work ing with PT, etc. she had a good night overnight, however. denies any dyspnea or orthopnea this am. stool was gross melena but it was a moderate-large BM. having the stool made her lower abdominal discomfort much better. tolerated the full liquids diet without any GI symptoms. pacing on telemetry overnight Review of Systems Constitutional: + fatigue; no fever and no anorexia Respiratory: no cough Cardiovascular: no chest pain Gastrointestinal: + abdominal pain (lower abdomen ) and + melena; no nausea and no vomiting Musculoskeletal: + back pain Integumentary: bruising and "tightness" of right leg Physical Exam Constitutional: no acute distress and no altered mental status anxious ENMT: external ear and nose normal, oropharynx normal Respiratory: no respiratory distress Auscultation: + crackles (Bases - no change from 03/26 exam ) Cardiovascular: Rate/Rhythm: regular rate and regular rhythm Heart Sounds: normal S1, normal S2, + click (Mechanical valve closure sound ) and + murmur (1- 2/6 systolic murmur LLSB) Vessels: posterior tibial pulses present and dorsalis pedis pulses present; no JVD Extremities: + edema (Severe, RLE, from foot to hip - no change; trace left ankle/foot) Gastrointestinal (Abdomen): normal bowel sounds, soft, nontender, no hepatosplenomegaly Skin: + ecchymosis (Extensive - RLE - starting to have rainbow of colors from evolution ) and + pallor Psychiatric: Orientation: alert and oriented x 3 Affect: + anxious affect Results & Data Results & Data ([facility]) Vital Signs (Past 12 Hours) Vital Signs Temp Pulse Pulse Resp BP Pulse Ox 03/27/20 07:28 60 03/27/20 07:16 36.7 C 61 18 140/55 L 92 03/27/20 03:12 36.7 C 62 16 121/45 L 93 Laboratory Results Laboratory Results - last 24 hr 03/27/20 03/27/20 03/27/20 08:04 08:04 08:04 WBC 6.08 RBC 2.79 L Hgb 9.0 L Hct 27.2 L MCV 97.5 MCH 32.3 MCHC 33.1 RDW Std Deviation 63.0 H RDW Coeff of Sia 18.1 H Plt Count 137 MPV 9.4 PT 13.0 H INR 1.2 H Sodium 132 L Potassium 3.1 L D Chloride 91 L Carbon Dioxide 38 H Anion Gap 3.0 BUN 15 Creatinine 0.48 L Est Cr Clr Drug Dosing 84.8 Est GFR ( Amer) 101.5 Est GFR (Non-Af Amer) 87.6 BUN/Creatinine Ratio 32.1 H Glucose 96 Calcium 8.6 PG Care Time/CCT Total # of Minutes Spent Total Time Spent with Patient: Total time spent is greater than 50% in coordination of care (as documented) at patient's floor/unit and/or counseling patient: Coding Level of Care Code 87051 Subseq Hosp Care Lvl 3 Diagnoses Anemia due to blood loss D50.0 Heme positive stool R19.5 Choledocholithiasis K80.50 Acute on chronic diastolic (congestive) heart failure I50.33 H/O mechanical aortic valve replacement Z95.2 Atrial fibrillation I48.91 Atrial fibrillation type: unspecified Adult hypothyroidism E03.9 Pulmonary hypertension I27.20 Chronic hyponatremia E87.1 Fracture, thoracic vertebra S22.079D Encounter type: subsequent encounter Thoracic vertebra fracture level: T10 Fracture type: closed Fracture morphology: unspecified fracture morphology Fracture healing: with routine healing Hypomagnesemia E83.42 HTN (hypertension) I10 Hypertension type: essential hypertension Status post placement of cardiac pacemaker Z95.0 Shoulder pain, right M25.511 Chronicity: acute Constipation K59.09 Constipation type: other constipation type Hypokalemia E87.6 DVT prophylaxis Z29.9 (1) Atrial fibrillation Atrial fibrillation type: unspecified Qualified Code(s): I48.91 - Unspecified atrial fibrillation (2) Fracture, thoracic vertebra Encounter type: subsequent encounter Thoracic vertebra fracture level: T10 Fracture type: closed Fracture morphology: unspecified fracture morphology Fracture healing: with routine healing Qualified Code(s): S22.079D - Unspecified fracture of T9-T10 vertebra, subsequent encounter for fracture with routine healing (3) HTN (hypertension) Hypertension type: essential hypertension Qualified Code(s): I10 - Essential (primary) hypertension (4) Shoulder pain, right Chronicity: acute Qualified Code(s): M25.511 - Pain in right shoulder (5) Constipation Constipation type: other constipation type Qualified Code(s): K59.09 - Other constipation
[2020-03-27] MEDS: WARFARIN SOD 4 MG TAB PO SCH (16:32)
[2020-03-27 17:16] LABS: Partial Thromboplastin Ratio 1.5; Partial Thromboplastin Time 42.4 Seconds (21.0-31.0)
[2020-03-27] MEDS ORDERED: HEPARIN IV BOLUS 3,000 UNITS in SYRINGE 0 ML IV ONE (17:45)
[2020-03-28 00:41] LABS: Hematocrit (blood only) 26.2 % (37-47); Hemoglobin 8.7 g/dL (12.0-16.0)
--- NOTE | 2020-03-28 06:07 | Communication Note ---
Date of Service: March 28, 2020 Clarisse Mo had two very large melanotic bowel movements the first of which appeared to be mostly congealed blood/clot rather than tarry stool. Patient on heparin drip and coumadin for aritificial heart valve and atrial fibrillation. Will hold anticoagulation at present time and trend h and h's. Patient is in a difficult spot due to clear need for anticoagulation and current bleeding, if not visualized on previous endoscopy may be a small bowel bleed. Patient notably full code, may warrant further discussion as both an embolic event or a major bleeding event could be fatal in anyone but particular someone of her age. MAP and pulse WNL limits at present time; first h and h only down .3 to 8.7. Will continue to trend h and h and monitor closely. Made patient NPO.
[2020-03-28] MEDS: LEVOTHYROXINE SODIUM 75 MCG TABLET PO SCH (06:40)
[2020-03-28 07:47] LABS: Hematocrit (blood only) 27.3 % (37-47); Hemoglobin 8.9 g/dL (12.0-16.0); Mean Corpuscular Hemoglobin 32.2 pg (25-34); Mean Corpuscular Hgb Conc 32.6 g/dL (32-36); Mean Corpuscular Volume 98.9 fL (80-100); Mean Platelet Volume 9.4 fL (7.4-10.4); Platelet Count 141 K/uL (130-400); RDW Coefficient of Variation 17.8 % (11.5-14.5); RDW Standard Deviation 63.8 fL (36.4-46.3); Red Blood Count 2.76 M/uL (4.2-5.4); White Blood Count 6.96 K/uL (4.8-10.8)
[2020-03-28] MEDS: DORZOLAMIDE/TIMOLOL 22.3/6.8MG/ML 10 ML BTL OP SCH ×2 (07:47→20:35)
[2020-03-28] MEDS: POTASSIUM CHLORIDE 20 MEQ TABCR PO SCH ×3 (07:47→20:35)
[2020-03-28] MEDS: SENNA 8.6 MG TAB PO SCH (07:47)
[2020-03-28] MEDS: METOPROLOL TARTRATE 100 MG TAB PO SCH ×2 (07:48→20:35)
[2020-03-28] MEDS: CALCIUM 600MG + VIT D 400 IU TAB PO SCH (07:48)
[2020-03-28] MEDS: LOSARTAN POTASSIUM 50 MG TAB PO SCH (07:49)
[2020-03-28] MEDS: POLYETHYLENE (MIRALAX) 17 GM PACK PO SCH (07:49)
[2020-03-28 08:03] LABS: INR 1.4 (0.9-1.1); Partial Thromboplastin Time 28.2 Seconds (21.0-31.0); Prothrombin Time 14.6 Seconds (9.0-12.0)
[2020-03-28 08:14] LABS: Albumin Level 2.3 gm/dl (3.4-5.0); BUN Creatinine Ratio 34.5 (10-20); Bilirubin Direct 0.7 mg/dl (0-0.2); Calcium 9.2 mg/dl (8.5-10.1); Creatinine Clr Calc Pharmacy 99.6 ml/min; Est GFR (African American) 107.8; Magnesium 1.7 mg/dl (1.8-2.4); Potassium 3.6 mmol/L (3.5-5.1)
[2020-03-28 08:41] LABS: Bilirubin,Total 1.6 mg/dl (0.2-1); Total Protein 5.8 gm/dl (6.4-8.2)
--- NOTE | 2020-03-28 11:03 | Cardiology Progress Note ---
Date of Service March 28, 2020 Assessment & Plan (1) Subtherapeutic international normalized ratio (INR): (2) Anemia due to blood loss: (3) H/O mechanical aortic valve replacement: (4) Atrial fibrillation: (5) Chronic diastolic heart failure: (6) Choledocholithiasis: Hold IV heparin and oral anticoagulation. Awaiting gastroenterology recommendations regarding repeat endoscopy. Post endoscopy, I would recommend holding heparin. Patient carries history of mechanical AVR and chronic A. fib, however, her left atrial appendage was ligated the time of her valve surgery in 2011. Restart Coumadin as soon as allowable, when bleeding risk deemed acceptable by the gastroenterology service. Repeat INR in a.m. Restart oral furosemide today. (Outpatient dose of 40 mg twice daily). Blood pressure improved with addition of low-dose losartan, 50 mg daily. (Outpatient dose 100 mg daily). Amlodipine remains on hold. Admission and Anticipated Discharge Date Admission Date: March 21, 2020 Subjective Patient seen and examined the bedside. Feeling well from a cardiovascular perspective. Melanotic stools reported x2 overnight. Hemoglobin remained stable. IV heparin discontinued. Review of Systems Review of Systems: All systems reviewed & are unremarkable except as noted in HPI & below Physical Exam Constitutional: well nourished and + ill appearing; no acute distress Respiratory: normal respiratory effort; no respiratory distress, no labored breathing and no retractions Auscultation: + crackles (Scant crackles at the bases bilaterally); no rales, no rhonchi and no wheezes Cardiovascular: Rate/Rhythm: regular rate Heart Sounds: normal S1, normal S2 and + murmur (2/6 systolic ejection murmur heard best at the right second intercostal space) Vessels: radial pulses present; no JVD and no carotid bruit Extremities: + edema (Trace bilateral pretibial edema, right lower extremity ecchymosis) Gastrointestinal (Abdomen): Inspection/Auscultation: abdomen normal to inspection and normal bowel sounds; abdomen not distended Percussion/ Palpation: abdomen soft; abdomen nontender, no guarding and abdomen not rigid Skin: no rashes, warm and dry Neurologic: PERRL, EOMI, accommodation nl, no face palsy, no dysarthria moves all extremities; no focal motor deficits Speech / Cognition: normal speech Motor/Sensory: no tremor Results & Data ([facility]) Vital Signs (Past 12 Hours) Vital Signs Temp Pulse Pulse Resp BP BP Pulse Ox 03/28/20 07:13 36.9 C 62 20 138/61 98 03/28/20 03:12 36.6 C 63 18 120/52 L 97 03/28/20 01:14 61 03/28/20 00:06 36.7 C 60 16 138/61 94 (1) Atrial fibrillation Atrial fibrillation type: unspecified Qualified Code(s): I48.91 - Unspecified atrial fibrillation
[2020-03-28] MEDS: PANTOprazole 40 MG TAB PO SCH ×2 (11:06→20:35)
[2020-03-28 11:13] LABS: Hematocrit (blood only) 28.5 % (37-47); Hemoglobin 9.5 g/dL (12.0-16.0)
[2020-03-28] MEDS ORDERED: Heparin IV Low Dose *NO* Bolus IV SCH (13:21)
--- NOTE | 2020-03-28 13:23 | Hospitalist Progress Note ---
Date of Service March 28, 2020 Assessment & Plan (1) Anemia due to blood loss: Likely combination of GI bleeding along with bleeding into RLE leading to acute blood loss anemia. s/p 2 units PRBCs this admission. H/H again stable overnight. Melena stool this am likely old blood only. No plans for repeat EGD/ERCP as long as H/H continue to remain stable. Allow AHA diet. Cont PPI bid. Resume heparin infusion without bolus. Cont coumadin 4mg daily. Daily PTT and INR. Daily CBC. - Over night had more stools. GI still thinks this is old blood. Continue heparin gtt & warfarin. Monitor hgb. (2) Heme positive stool: as above. during ERCP upper GI tract was grossly normal without any active bleeding. small bowel bleeding ? other ? either way H/H stable x 48 hours. resume heparin drip without bolus. cont coumadin cautiously. (3) Choledocholithiasis: s/p ERCP on 03/21/20. numerous stones extracted. sphincterotomy performed. no stent placed. Continues to have NO signs or symptoms of acute cholecystitis. no plans per gen surg for cholecystectomy. may have outpatient treatment with Dr Mendoza for this issue (EUS guided cholecystoduodenostomy using LAMS). this would be performed at [facility]. recent LFTs wnl. (4) Acute on chronic diastolic (congestive) heart failure: acute component improved/likely resolved. placed IV lasix on hold. likely will resume PO lasix BID as preivous. appreciate Dr Nguyen's assistance from [facility]. (5) H/O mechanical aortic valve replacement: s/p vitamin K on 03/25 due to GI bleeding INR now subtherapeutic from such. H/H stable x 48 hours. RESUME HEPARIN DRIP cautiously today. Cont daily coumadin 4mg. Cont daily PTT and INR checks. (6) Atrial fibrillation: cont metoprolol BID controlled pacing on tele see above re: anticoagulation (7) Adult hypothyroidism: TSH wnl cont synthroid (8) Pulmonary hypertension: severe on echo 08/2019 need to assess for ambulatory oxygen at discharge (9) Chronic hyponatremia: with acute component presenting Na was 120 today 132 -- near baseline BMP am (10) Fracture, thoracic vertebra: osteoporotic in nature, 2nd to fall T10 pain control TLSO brace appreciate orthopedic consultation no plans for surgery vit D level wnl (11) Hypomagnesemia: replaced and resolved repeat level in am (12) HTN (hypertension): cont to hold amlodipine cont BB cont ARB controlled (13) Status post placement of cardiac pacemaker: noted pacing on monitor, stable (14) Shoulder pain, right: xrays w/o fracture advanced OA follow (15) Constipation: resolved with suppositories, oral agents, and enemas cont senna with miralax for bowel maintenance (16) Hypokalemia: replace PO repeat K and mag in am (17) DVT prophylaxis: resume heparin drip today cont coumadin daily coags cont PT/OT Admission and Anticipated Discharge Date Admission Date: March 21, 2020 Subjective No pain today. She had two melenic stools overnight. Reports no fevers/chills, chest pain, shortness of breath, abdominal pain, nausea, or vomiting. Physical Exam Constitutional: WD/WN, vitals as above Eyes: EOM intact bilaterally; no conjunctival abnormality ENMT: external ear and nose normal, oropharynx normal Neck: trachea midline, no thyromegaly normal visual inspection Respiratory: normal respiratory effort, lungs clear to auscultation no respiratory distress Cardiovascular: RRR, no murmur, no edema Gastrointestinal (Abdomen): Inspection/Auscultation: abdomen normal to inspection; abdomen not distended Musculoskeletal: no cyanosis or clubbing, extremities motor strength 5/5 Skin: no rashes, warm and dry Neurologic: moves all extremities and awake Psychiatric: Orientation: alert, oriented to person and cooperative Results & Data Results & Data ([facility]) Vital Signs (Past 12 Hours) Vital Signs Temp Pulse Resp BP BP Pulse Ox 03/28/20 11:48 36.7 C 60 18 143/68 H 95 03/28/20 07:13 36.9 C 62 20 138/61 98 03/28/20 03:12 36.6 C 63 18 120/52 L 97 PG Care Time/CCT Total # of Minutes Spent Total Time Spent with Patient: Total time spent is greater than 50% in coordination of care (as documented) at patient's floor/unit and/or counseling patient: Coding Level of Care Code 14578 Subseq Hosp Care Lvl 2 Diagnoses Anemia due to blood loss D50.0 Heme positive stool R19.5 Choledocholithiasis K80.50 Acute on chronic diastolic (congestive) heart failure I50.33 H/O mechanical aortic valve replacement Z95.2 Atrial fibrillation I48.91 Atrial fibrillation type: unspecified Adult hypothyroidism E03.9 Pulmonary hypertension I27.20 Chronic hyponatremia E87.1 Fracture, thoracic vertebra S22.079D Encounter type: subsequent encounter Fracture healing: with routine healing Fracture morphology: unspecified fracture morphology Fracture type: closed Thoracic vertebra fracture level: T10 Hypomagnesemia E83.42 HTN (hypertension) I10 Hypertension type: essential hypertension Status post placement of cardiac pacemaker Z95.0 Shoulder pain, right M25.511 Chronicity: acute Constipation K59.09 Constipation type: other constipation type Hypokalemia E87.6 DVT prophylaxis Z29.9 (1) Fracture, thoracic vertebra Encounter type: subsequent encounter Fracture healing: with routine healing Fracture morphology: unspecified fracture morphology Fracture type: closed Thoracic vertebra fracture level: T10 Qualified Code(s): S22.079D - Unspecified fracture of T9-T10 vertebra, subsequent encounter for fracture with routine healing (2) Atrial fibrillation Atrial fibrillation type: unspecified Qualified Code(s): I48.91 - Unspecified atrial fibrillation (3) Shoulder pain, right Chronicity: acute Qualified Code(s): M25.511 - Pain in right shoulder (4) HTN (hypertension) Hypertension type: essential hypertension Qualified Code(s): I10 - Essential (primary) hypertension (5) Constipation Constipation type: other constipation type Qualified Code(s): K59.09 - Other constipation
[2020-03-28] MEDS ORDERED: HEPARIN SODIUM/DEXTROSE 25,000 UNITS/500 ML BAG IV SCH (13:30)
[2020-03-28] MEDS: HEPARIN SODIUM/DEXTROSE 25,000 UNITS/500 ML BAG IV SCH ×2 (14:03→14:23)
[2020-03-28 17:15] LABS: Hematocrit (blood only) 27.7 % (37-47); Hemoglobin 9.2 g/dL (12.0-16.0)
[2020-03-28] MEDS: FUROSEMIDE 40 MG TAB PO SCH (17:24)
[2020-03-28] MEDS: MAGNESIUM SULFATE / D5W 1 GM/100 ML BAG IV SCH ×2 (18:20→20:32)
[2020-03-28 20:36] LABS: Partial Thromboplastin Ratio 2.4
[2020-03-28 20:43] LABS: Partial Thromboplastin Time 66.3 Seconds (21.0-31.0)
[2020-03-28 23:07] LABS: Hematocrit (blood only) 28.2 % (37-47); Hemoglobin 9.3 g/dL (12.0-16.0)
[2020-03-29] MEDS: LEVOTHYROXINE SODIUM 75 MCG TABLET PO SCH (06:13)
[2020-03-29 07:27] LABS: Hemoglobin 9.6 g/dL (12.0-16.0); Mean Corpuscular Hemoglobin 32.9 pg (25-34); Mean Corpuscular Hgb Conc 33.1 g/dL (32-36); Mean Corpuscular Volume 99.3 fL (80-100); Mean Platelet Volume 9.5 fL (7.4-10.4); Platelet Count 158 K/uL (130-400); RDW Coefficient of Variation 17.6 % (11.5-14.5); RDW Standard Deviation 62.5 fL (36.4-46.3); Red Blood Count 2.92 M/uL (4.2-5.4); White Blood Count 6.45 K/uL (4.8-10.8)
[2020-03-29 07:46] LABS: Partial Thromboplastin Ratio 3.1
[2020-03-29 08:00] LABS: Partial Thromboplastin Time 85.1 Seconds (21.0-31.0)
[2020-03-29 08:02] LABS: Albumin Level 2.5 gm/dl (3.4-5.0); BUN Creatinine Ratio 31.1 (10-20); Calcium 8.7 mg/dl (8.5-10.1); Creatinine Clr Calc Pharmacy 75.4 ml/min; Est GFR (African American) 98.3; Est GFR (Non-African American) 84.8; Magnesium 1.8 mg/dl (1.8-2.4); Potassium 3.7 mmol/L (3.5-5.1)
[2020-03-29 08:05] LABS: Albumin Globulin Ratio 0.7 (0.9-2); Bilirubin,Total 1.5 mg/dl (0.2-1); Globulin 3.6 gm/dl (2.5-4.0); Phosphorus 2.8 mg/dl (2.5-4.9); Total Protein 6.1 gm/dl (6.4-8.2)
[2020-03-29] MEDS: CALCIUM 600MG + VIT D 400 IU TAB PO SCH (08:34)
[2020-03-29] MEDS: POTASSIUM CHLORIDE 20 MEQ TABCR PO SCH ×3 (08:35→20:42)
[2020-03-29] MEDS: FUROSEMIDE 40 MG TAB PO SCH ×2 (08:35→16:00)
[2020-03-29] MEDS: LOSARTAN POTASSIUM 50 MG TAB PO SCH (08:35)
[2020-03-29] MEDS: DORZOLAMIDE/TIMOLOL 22.3/6.8MG/ML 10 ML BTL OP SCH ×2 (08:35→20:40)
[2020-03-29] MEDS: METOPROLOL TARTRATE 100 MG TAB PO SCH ×2 (08:36→20:41)
[2020-03-29] MEDS: PANTOprazole 40 MG TAB PO SCH ×2 (08:36→20:42)
[2020-03-29] MEDS: SENNA 8.6 MG TAB PO SCH (08:36)
[2020-03-29] MEDS: POLYETHYLENE (MIRALAX) 17 GM PACK PO SCH (08:37)
[2020-03-29 15:10] LABS: Partial Thromboplastin Ratio 2.2
[2020-03-29 15:15] LABS: Partial Thromboplastin Time 60.9 Seconds (21.0-31.0)
[2020-03-29] MEDS: HEPARIN SODIUM/DEXTROSE 25,000 UNITS/500 ML BAG IV SCH (15:59)
--- NOTE | 2020-03-29 15:59 | Orthopedic Consultation ---
Date of Consultation March 29, 2020 Assessment & Plan (1) Hemarthrosis involving knee joint: Currently with minimal discomfort, recent history of trauma and therapeutic INR upon admission, normal inflammatory labs, unlikely deep infectious process at this time, clinical findings consistent with hemarthrosis of the right knee, recommend ice and elevation, weight-bear as tolerated right lower extremity and physical therapy, tight control of INR, patient also presenting with abrasion and prepatellar bursitis versus hematoma and mild erythema, recommend short course of antibiotic, ice and elevation, and close monitoring. Due to patient's tender edematous lower leg and calf, subthera peutic INR during hospitalization recommend venous Doppler rule out DVT. We will follow with you. Thank you for the consultation. (2) Prepatellar bursitis, right knee: History of Present Illness Reason for Consultation: Right knee pain and swelling Attending Physician: Raul Redman History of Present Illness The patient is an 89-year-old female who was admitted to [facility] secondary to a fall on 03/21/2020, was down for 4 hours, patient reports multiple falls of recent. Was found to have cholelithiasis and underwent ERCP upon admission. Patient takes warfarin for aortic valve replacement, INR grea ter than 3 upon admission. Patient complaining of swelling to the right knee and bruising which began after her first fall 3-1/2 weeks prior as well as an abrasion which formed over the knee after her last fall at the time of admission on 03/21/2020. Patient has prior past surgical history for right total knee arthroplasty [place] [address] Espinal. Patient reports being able to ambulate and participate in exercises with minimal discomfort. Denies any associated injuries. Denies any numbness or tingling to right lower extremity. Patient also being followed by spine team for T10-11 vertebral compression fracture. Allergies Allergy/AdvReac Type Severity Reaction Status Date / Time Sulfa (Sulfonamide Allergy Intermediate HIVES Verified 03/21/20 02:04 Antibiotics) Home Medications Home Medications Medication Instructions Recorded Confirmed Type furosemide [Lasix] 40 mg PO BID #0 tab 01/17/12 03/21/20 History Centrum Silver Women 1 tab PO DAILY #0 07/31/13 03/21/20 History aspirin [Aspirin Low Dose] 81 mg PO QAM #0 07/31/13 03/21/20 History levothyroxine 75 mcg PO QAM #0 tab 07/31/13 03/21/20 History warfarin 3 mg PO 3XWK #0 tab 07/31/13 03/21/20 History Oxygen Home #0 09/10/13 02/13/19 History lorazepam [Ativan] 0.5 mg PO BID PRN #0 tab 09/10/13 03/21/20 History metoprolol tartrate 100 mg PO BID #0 tab 09/10/13 03/21/20 History amlodipine [Norvasc] 5 mg PO QAM #0 tab 01/16/18 03/21/20 History warfarin 4 mg PO 4XWK 11/29/18 03/21/20 History calcium phosphate-vitamin D3 1 tab PO DAILY 08/12/19 03/21/20 History [Caltrate Gummy Bites] dorzolamide-timolol 1 drp OPHTHALMIC (EYE) AMPM 08/12/19 03/21/20 History losartan 50 mg PO AMPM 08/12/19 03/21/20 History Slow-Mag 1 tab PO TIDM 03/21/20 03/21/20 History cyclosporine [Restasis] 1 drp OPB BID 03/21/20 03/21/20 History potassium chloride 2 tab PO TIDM 03/21/20 03/21/20 History Patient History Medical History Adult hypothyroidism Atrial fibrillation CHF (congestive heart failure) Choledocholithiasis Chronic hyponatremia HTN (hypertension) Pacemaker Pulmonary hypertension severe Thickened endometrium Thyroid disease Surgical History Aortic valve replaced H/O mechanical aortic valve replacement History of colonoscopy 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 Status post Mohs surgery Family History Brother Cancer Sister Cancer Social History Smoking Status: Never smoker Tobacco Type: Cigarettes Second Hand Exposure: No; Hx Alcohol Use: No Hx Substance Use: No Preferred Language: Gabonese Communication Ability: Effective Shear Operator Required: No Beliefs That Will Affect Care: None marital status: / Current Living Situation: Alone How many Children do You have: 2 Other Information That Helps Us Care for You: No Feels Safe at Home: Yes Safety Concerns: Feels Safe At This Time Review of Systems Review of Systems: All systems reviewed & are unremarkable except as noted in HPI & below Constitutional: as per Subjective / HPI Physical Exam Physical Exam: Right lower extremity is neurovascular sensory intact grossly, +2 dorsalis pedis pulse, compartments compressible but tender, +2 edema grossly, extensive ecchymoses from the distal one third thigh to her lower leg. Active and passive range of motion 0 to 100 degrees of flexion with minimal discomfort, large effusion, + prepatellar bursitis, 2 cm x 1.5 cm abrasion distal one third incision, no drainage, mild erythema at the distal one third incision. Constitutional: WD/WN, vitals as above Results & Data ([facility]) Vital Signs (Past 12 Hours) Vital Signs Temp Pulse Pulse Resp BP Pulse Ox 03/29/20 12:11 36.5 C 60 17 133/51 L 100 03/29/20 08:30 60 03/29/20 08:09 36.9 C 100 H 17 121/81 92 Laboratory Results 03/29/20 03/29/20 03/29/20 Range/Units 14:32 06:35 06:35 WBC (4.8-10.8) K/uL RBC (4.2-5.4) M/uL Hgb (12.0-16.0) g/dL Hct (37-47) % MCV (80-100) fL MCH (25-34) pg MCHC (32-36) g/dL RDW Std Deviation (36.4-46.3) fL RDW Coeff of Isa (11.5-14.5) % Plt Count (130-400) K/uL MPV (7.4-10.4) fL APTT 60.9 H* 85.1 H* (21.0-31.0) Seconds PTT Ratio 2.2 3.1 Sodium 133 L (136-145) mmol/L Potassium 3.7 (3.5-5.1) mmol/L Chloride 92 L (98-107) mmol/L Carbon Dioxide 35 H (21-32) mmol/L Anion Gap 6.0 (3-11) BUN 17 (7-18) mg/dl Creatinine 0.53 L (0.6-1.2) mg/dl Est Cr Clr Drug Dosing 75.4 ml/min Est GFR ( Amer) 98.3 Est GFR (Non-Af Amer) 84.8 BUN/Creatinine Ratio 31.1 H (10-20) Glucose 110 H (70-99) mg/dl Calcium 8.7 (8.5-10.1) mg/dl Phosphorus 2.8 (2.5-4.9) mg/dl Magnesium 1.8 (1.8-2.4) mg/dl Total Bilirubin 1.5 H (0.2-1) mg/dl AST 36 (15-37) U/L ALT 36 (12-78) U/L Alkaline Phosphatase 113 (45-117) U/L Total Protein 6.1 L (6.4-8.2) gm/dl Albumin 2.5 L (3.4-5.0) gm/dl Globulin 3.6 (2.5-4.0) gm/dl Albumin/Globulin Ratio 0.7 L (0.9-2) 03/29/20 03/28/20 03/28/20 Range/Units 06:35 22:54 20:06 WBC 6.45 (4.8-10.8) K/uL RBC 2.92 L (4.2-5.4) M/uL Hgb 9.6 L 9.3 L (12.0-16.0) g/dL Hct 29.0 L 28.2 L (37-47) % MCV 99.3 (80-100) fL MCH 32.9 (25-34) pg MCHC 33.1 (32-36) g/dL RDW Std Deviation 62.5 H (36.4-46.3) fL RDW Coeff of Sia 17.6 H (11.5-14.5) % Plt Count 158 (130-400) K/uL MPV 9.5 (7.4-10.4) fL APTT 66.3 H* (21.0-31.0) Seconds PTT Ratio 2.4 Sodium (136-145) mmol/L Potassium (3.5-5.1) mmol/L Chloride (98-107) mmol/L Carbon Dioxide (21-32) mmol/L Anion Gap (3-11) BUN (7-18) mg/dl Creatinine (0.6-1.2) mg/dl Est Cr Clr Drug Dosing ml/min Est GFR ( Amer) Est GFR (Non-Af Amer) BUN/Creatinine Ratio (10-20) Glucose (70-99) mg/dl Calcium (8.5-10.1) mg/dl Phosphorus (2.5-4.9) mg/dl Magnesium (1.8-2.4) mg/dl Total Bilirubin (0.2-1) mg/dl AST (15-37) U/L ALT (12-78) U/L Alkaline Phosphatase (45-117) U/L Total Protein (6.4-8.2) gm/dl Albumin (3.4-5.0) gm/dl Globulin (2.5-4.0) gm/dl Albumin/Globulin Ratio (0.9-2) 03/28/20 Range/Units 17:03 WBC (4.8-10.8) K/uL RBC (4.2-5.4) M/uL Hgb 9.2 L (12.0-16.0) g/dL Hct 27.7 L (37-47) % MCV (80-100) fL MCH (25-34) pg MCHC (32-36) g/dL RDW Std Deviation (36.4-46.3) fL RDW Coeff of Sia (11.5-14.5) % Plt Count (130-400) K/uL MPV (7.4-10.4) fL APTT (21.0-31.0) Seconds PTT Ratio Sodium (136-145) mmol/L Potassium (3.5-5.1) mmol/L Chloride (98-107) mmol/L Carbon Dioxide (21-32) mmol/L Anion Gap (3-11) BUN (7-18) mg/dl Creatinine (0.6-1.2) mg/dl Est Cr Clr Drug Dosing ml/min Est GFR ( Amer) Est GFR (Non-Af Amer) BUN/Creatinine Ratio (10-20) Glucose (70-99) mg/dl Calcium (8.5-10.1) mg/dl Phosphorus (2.5-4.9) mg/dl Magnesium (1.8-2.4) mg/dl Total Bilirubin (0.2-1) mg/dl AST (15-37) U/L ALT (12-78) U/L Alkaline Phosphatase (45-117) U/L Total Protein (6.4-8.2) gm/dl Albumin (3.4-5.0) gm/dl Globulin (2.5-4.0) gm/dl Albumin/Globulin Ratio (0.9-2) Diagnostic Findings XR femur RT 2V routine, XR tibia fibula RT 2V HISTORY: 89 years-old Female Pt c/o Rt leg bruising s/p fall acute right lower extremity pain status post fall COMPARISON: CT abdomen and pelvis of same day TECHNIQUE: 2 views the right femur and 2 views of the right tibia and fibula FINDINGS: FEMUR: Mild to moderate right hip osteoarthritis. Demineralized appearance of the bones. No acute fracture, dislocation or avascular necrosis. There is chronic appearing cortical thickening involving the medial distal femoral metadiaphysis. Mild diffuse lateral soft tissue prominence. TIBIA/FIBULA: Right knee total joint arthroplasty and patella resurfacing. No evidence of hard castro complication, acute fracture or dislocation. Diffuse soft tissue prominence. Small joint effusion of the knee. Multifocal osteoarthritis of the foot and ankle. IMPRESSION: No acute fracture or dislocation. XR femur RT 2V routine, XR tibia fibula RT 2V HISTORY: 89 years-old Female Pt c/o Rt leg bruising s/p fall acute right lower extremity pain status post fall COMPARISON: CT abdomen and pelvis of same day TECHNIQUE: 2 views the right femur and 2 views of the right tibia and fibula FINDINGS: FEMUR: Mild to moderate right hip osteoarthritis. Demineralized appearance of the bones. No acute fracture, dislocation or avascular necrosis. There is chronic appearing cortical thickening involving the medial distal femoral metadiaphysis. Mild diffuse lateral soft tissue prominence. TIBIA/FIBULA: Right knee total joint arthroplasty and patella resurfacing. No evidence of hardware complication, acute fracture or dislocation. Diffuse soft tissue prominence. Small joint effusion of the knee. Multifocal osteoarthritis of the foot and ankle.
[2020-03-29] MEDS: cephALEXin 500 MG CAP PO SCH ×2 (17:04→20:41)
--- NOTE | 2020-03-29 22:23 | Ultrasound Report ---
ULTRASOUND RIGHT LOWER EXTREMITY VENOUS CLINICAL HISTORY: Fall. Right lower extremity bruising. COMPARISON STUDY: No priors. TECHNIQUE: Real-time, grayscale, and color Doppler sonography of the deep veins of the right lower ex tremity was performed from the inguinal crease to the calf. Compression and augmentation were utilize d. FINDINGS: There is no sonographic evidence of deep venous thrombosis identified in the right lower ex tremity. The common femoral, superficial femoral, and popliteal veins are patent and normally elyssa sible. The greater saphenous vein and the profunda femoris vein at the junction with the common femor al vein are clear. The visualized calf veins are patent. IMPRESSION: There is no sonographic evidence of deep venous thrombosis identified in the right lower extremity. ACT 112: Negative or not required by law. Electronically signed by: Nathan Oseguera M.D. 03/29/2020 10:21 PM
--- NOTE | 2020-03-29 22:23 | Hospitalist Progress Note ---
Date of Service March 29, 2020 Assessment & Plan (1) Anemia due to blood loss: Likely combination of GI bleeding along with bleeding into RLE leading to acute blood loss anemia. s/p 2 units PRBCs this admission. H/H again stable overnight. Melena stool this am likely old blood only. No plans for repeat EGD/ERCP as long as H/H continue to remain stable. Allow AHA diet. Cont PPI bid. Resume heparin infusion without bolus. Cont coumadin 4mg daily. Daily PTT and INR. Daily CBC. - Over night had more stools. GI still thinks this is old blood. Continue heparin gtt & warfarin. Monitor hgb. (2) Heme positive stool: as above. during ERCP upper GI tract was grossly normal without any active bleeding. small bowel bleeding ? other ? either way H/H stable x 48 hours. resume heparin drip without bolus. cont coumadin cautiously. (3) Choledocholithiasis: s/p ERCP on 03/21/20. numerous stones extracted. sphincterotomy performed. no stent placed. Continues to have NO signs or symptoms of acute cholecystitis. no plans per gen surg for cholecystectomy. may have outpatient treatment with Dr Mendoza for this issue (EUS guided cholecystoduodenostomy using LAMS). this would be performed at [facility]. recent LFTs wnl. (4) Acute on chronic diastolic (congestive) heart failure: acute component improved/likely resolved. placed IV lasix on hold. likely will resume PO lasix BID as preivous. appreciate Dr Nguyen's assistance from [facility]. (5) H/O mechanical aortic valve replacement: s/p vitamin K on 03/25 due to GI bleeding INR now subtherapeutic from such. H/H stable x 48 hours. RESUME HEPARIN DRIP cautiously today. Cont daily coumadin 4mg. Cont daily PTT and INR checks. (6) Atrial fibrillation: cont metoprolol BID controlled pacing on tele see above re: anticoagulation (7) Adult hypothyroidism: TSH wnl cont synthroid (8) Pulmonary hypertension: severe on echo 08/2019 need to assess for ambulatory oxygen at discharge (9) Chronic hyponatremia: with acute component presenting Na was 120 today 132 -- near baseline BMP am (10) Fracture, thoracic vertebra: osteoporotic in nature, 2nd to fall T10 pain control TLSO brace appreciate orthopedic consultation no plans for surgery vit D level wnl will consult ortho in regards to knee (11) Hypomagnesemia: replaced and resolved repeat level in am (12) HTN (hypertension): cont to hold amlodipine cont BB cont ARB controlled (13) Status post placement of cardiac pacemaker: noted pacing on monitor, stable (14) Shoulder pain, right: xrays w/o fracture advanced OA follow (15) Constipation: resolved with suppositories, oral agents, and enemas cont senna with miralax for bowel maintenance (16) Hypokalemia: replace PO repeat K and mag in am (17) DVT prophylaxis: resume heparin drip today cont coumadin daily coags cont PT/OT Admission and Anticipated Discharge Date Admission Date: March 21, 2020 Subjective 89 yo female reports concern over swelling of right knee. Review of Systems Review of Systems: All systems reviewed & are unremarkable except as noted in HPI & below Physical Exam Physical Exam: Constitutional: WD/WN, vitals as above Eyes: EOM intact bilaterally; no conjunctival abnormality ENMT: external ear and nose normal, oropharynx normal Neck: trachea midline, no thyromegaly normal visual inspection Respiratory: normal respiratory effort, lungs clear to auscultation no respiratory distress Cardiovascular: RRR, no murmur, no edema Gastrointestinal (Abdomen): Inspection/Auscultation: abdomen normal to inspection; abdomen not distended Musculoskeletal: no cyanosis or clubbing, extremities motor strength 5/5; redness, swelling over anterior knee Skin: no rashes, warm and dry Neurologic: moves all extremities and awake Psychiatric: Orientation: alert, oriented to person and cooperative Results & Data Results & Data ([facility]) Vital Signs (Past 12 Hours) Vital Signs Temp Pulse Pulse Resp BP Pulse Ox 03/29/20 19:06 36.7 C 61 18 127/55 L 100 03/29/20 16:05 36.5 C 113 H 18 106/61 94 03/29/20 16:00 59 L 03/29/20 12:11 36.5 C 60 17 133/51 L 100 PG Care Time/CCT Total # of Minutes Spent Total Time Spent with Patient: Total time spent is greater than 50% in coordination of care (as documented) at patient's floor/unit and/or counseling patient: Coding Level of Care Code 68859 Subseq Hosp Care Lvl 3 Diagnoses Anemia due to blood loss D50.0 Heme positive stool R19.5 Choledocholithiasis K80.50 Acute on chronic diastolic (congestive) heart failure I50.33 H/O mechanical aortic valve replacement Z95.2 Atrial fibrillation I48.91 Atrial fibrillation type: unspecified Adult hypothyroidism E03.9 Pulmonary hypertension I27.20 Chronic hyponatremia E87.1 Fracture, thoracic vertebra S22.079D Encounter type: subsequent encounter Fracture healing: with routine healing Fracture morphology: unspecified fracture morphology Fracture type: closed Thoracic vertebra fracture level: T10 Hypomagnesemia E83.42 HTN (hypertension) I10 Hypertension type: essential hypertension Status post placement of cardiac pacemaker Z95.0 Shoulder pain, right M25.511 Chronicity: acute Constipation K59.09 Constipation type: other constipation type Hypokalemia E87.6 DVT prophylaxis Z29.9 Time Spent (min) 35 (1) Fracture, thoracic vertebra Encounter type: subsequent encounter Fracture healing: with routine healing Fracture morphology: unspecified fracture morphology Fracture type: closed Thoracic vertebra fracture level: T10 Qualified Code(s): S22.079D - Unspecified fracture of T9-T10 vertebra, subsequent encounter for fracture with routine healing (2) Atrial fibrillation Atrial fibrillation type: unspecified Qualified Code(s): I48.91 - Unspecified atrial fibrillation (3) Shoulder pain, right Chronicity: acute Qualified Code(s): M25.511 - Pain in right shoulder (4) HTN (hypertension) Hypertension type: essential hypertension Qualified Code(s): I10 - Essential (primary) hypertension (5) Constipation Constipation type: other constipation type Qualified Code(s): K59.09 - Other constipation
[2020-03-30] MEDS: LEVOTHYROXINE SODIUM 75 MCG TABLET PO SCH (05:42)
[2020-03-30 06:19] LABS: INR 1.5 (0.9-1.1); Partial Thromboplastin Ratio 2.1; Prothrombin Time 15.5 Seconds (9.0-12.0)
[2020-03-30 06:27] LABS: Partial Thromboplastin Time 57.5 Seconds (21.0-31.0)
--- NOTE | 2020-03-30 08:06 | Orthopedic Progress Note ---
Date of Service March 30, 2020 Assessment & Plan (1) Hemarthrosis involving knee joint: Bruising and ecchymosis about her knee and lower leg mildly improved than yesterday per patient. Doppler negative for DVT. Mild erythema anterior aspect of knee with a small abrasion. Continue p.o. Keflex, ice and elevation to right lower extremity. (2) Prepatellar bursitis, right knee: Admission and Anticipated Discharge Date Admission Date: March 21, 2020 Supervising Physician Co-Signing Physician Notes The patient was seen and examined, agree with above assessment plan. Ecchymoses, edema and erythema mildly improving. We will continue to monitor. Subjective Patient is doing okay this morning. Pain in right knee and lower leg mildly improved from yesterday. She was started on Keflex p.o. yesterday due to concern of a possible cellulitis overlying prepatellar bursitis. No current complaints. Denies chest pain, shortness of breath, nausea, vomiting, diarrhea, lightheadedness or dizziness. Review of Systems Review of Systems: All systems reviewed & are unremarkable except as noted in HPI & below Physical Exam Physical Exam: Right knee: Mild to moderate ecchymosis and swelling about the entire right lower extremity. Small abrasion dorsal aspect of knee with mild overlying erythema. Toes are mobile. Mild tenderness to calf. Distally neurovascular status and sensation intact. Constitutional: well developed and well nourished; no acute distress Results & Data ([facility]) Vital Signs (Past 12 Hours) Vital Signs Temp Pulse Pulse Resp BP Pulse Ox 03/30/20 03:46 36.6 C 60 20 145/66 H 97 03/30/20 01:53 62 03/29/20 22:34 36.8 C 62 17 119/57 L 100
[2020-03-30] MEDS: SENNA 8.6 MG TAB PO SCH (08:17)
[2020-03-30] MEDS: DORZOLAMIDE/TIMOLOL 22.3/6.8MG/ML 10 ML BTL OP SCH ×2 (08:17→20:11)
[2020-03-30] MEDS: CALCIUM 600MG + VIT D 400 IU TAB PO SCH (08:17)
[2020-03-30] MEDS: PANTOprazole 40 MG TAB PO SCH ×2 (08:17→20:13)
[2020-03-30] MEDS: cephALEXin 500 MG CAP PO SCH ×4 (08:18→20:12)
[2020-03-30] MEDS: FUROSEMIDE 40 MG TAB PO SCH ×2 (08:18→16:55)
[2020-03-30] MEDS: POTASSIUM CHLORIDE 20 MEQ TABCR PO SCH ×3 (08:18→20:13)
[2020-03-30] MEDS: POLYETHYLENE (MIRALAX) 17 GM PACK PO SCH (08:19)
[2020-03-30] MEDS: METOPROLOL TARTRATE 100 MG TAB PO SCH ×2 (08:19→20:12)
[2020-03-30] MEDS: LOSARTAN POTASSIUM 50 MG TAB PO SCH (08:19)
[2020-03-30] MEDS ORDERED: Nursing to Pharmacy Communication SCH (10:45)
[2020-03-30] MEDS: HEPARIN SODIUM/DEXTROSE 25,000 UNITS/500 ML BAG IV SCH (13:37)
[2020-03-30] MEDS: NETARSUDIL 0.02% OP SCH (20:13)
[2020-03-30] MEDS: cycloSPORINE (RESTASIS) OPB SCH (20:14)
--- NOTE | 2020-03-30 23:02 | Hospitalist Progress Note ---
Date of Service March 30, 2020 Assessment & Plan (1) Anemia due to blood loss: Likely combination of GI bleeding along with bleeding into RLE leading to acute blood loss anemia. s/p 2 units PRBCs this admission. H/H again stable overnight. Melena stool this am likely old blood only. No plans for repeat EGD/ERCP as long as H/H continue to remain stable. Allow AHA diet. Cont PPI bid. Resume heparin infusion without bolus. Cont coumadin 4mg daily. Daily PTT and INR. Daily CBC. - Over night had more stools. GI still thinks this is old blood. Continue heparin. Realized warfarin had been on hold, will restart this, will need to closely monitor as INR is 1.5 will continue to monitor hemoglobin (2) Heme positive stool: as above. during ERCP upper GI tract was grossly normal without any active bleeding. small bowel bleeding ? other ? either way H/H stable x 48 hours. resume heparin drip without bolus. cont coumadin cautiously. (3) Choledocholithiasis: s/p ERCP on 03/21/20. numerous stones extracted. sphincterotomy performed. no stent placed. Continues to have NO signs or symptoms of acute cholecystitis. no plans per gen surg for cholecystectomy. may have outpatient treatment with Dr Mendoza for this issue (EUS guided cholecystoduodenostomy using LAMS). this would be performed at [facility]. recent LFTs wnl. (4) Acute on chronic diastolic (congestive) heart failure: acute component improved/likely resolved. placed IV lasix on hold. likely will resume PO lasix BID as preivous. appreciate Dr Nguyen's assistance from [facility]. (5) H/O mechanical aortic valve replacement: s/p vitamin K on 03/25 due to GI bleeding INR now subtherapeutic from such. H/H stable x 48 hours. RESUME HEPARIN DRIP cautiously today. Cont daily coumadin 4mg. Cont daily PTT and INR checks. (6) Atrial fibrillation: cont metoprolol BID controlled pacing on tele see above re: anticoagulation (7) Adult hypothyroidism: TSH wnl cont synthroid (8) Pulmonary hypertension: severe on echo 08/2019 need to assess for ambulatory oxygen at discharge (9) Chronic hyponatremia: with acute component presenting Na was 120 today 132 -- near baseline BMP am (10) Fracture, thoracic vertebra: osteoporotic in nature, 2nd to fall T10 pain control TLSO brace appreciate orthopedic consultation no plans for surgery vit D level wnl will consult ortho in regards to knee (11) Hypomagnesemia: replaced and resolved repeat level in am (12) HTN (hypertension): cont to hold amlodipine cont BB cont ARB controlled (13) Status post placement of cardiac pacemaker: noted pacing on monitor, stable (14) Shoulder pain, right: xrays w/o fracture advanced OA follow (15) Constipation: resolved with suppositories, oral agents, and enemas cont senna with miralax for bowel maintenance (16) Hypokalemia: replace PO repeat K and mag in am (17) DVT prophylaxis: resume heparin drip today cont coumadin daily coags cont PT/OT Admission and Anticipated Discharge Date Admission Date: March 21, 2020 Subjective 89 yo female reports feeling well. She has no new complaints at this time. She states her right knee has decreased swelling. Review of Systems Review of Systems: All systems reviewed & are unremarkable except as noted in HPI & below Physical Exam Physical Exam: Constitutional: WD/WN, vitals as above Eyes: EOM intact bilaterally; no conjunctival abnormality ENMT: external ear and nose normal, oropharynx normal Neck: trachea midline, no thyromegaly normal visual inspection Respiratory: normal respiratory effort, lungs clear to auscultation no respiratory distress Cardiovascular: RRR, no murmur, no edema Gastrointestinal (Abdomen): Inspection/Auscultation: abdomen normal to inspection; abdomen not distended Musculoskeletal: no cyanosis or clubbing, extremities motor strength 5/5; redness, swelling over anterior knee Skin: no rashes, warm and dry Neurologic: moves all extremities and awake Psychiatric: Orientation: alert, oriented to person and cooperative Results & Data Results & Data ([facility]) Vital Signs (Past 12 Hours) Vital Signs Temp Pulse Pulse Resp BP Pulse Ox 03/30/20 22:29 36.7 C 67 17 118/55 L 100 03/30/20 18:56 36.6 C 61 18 108/43 L 100 03/30/20 16:50 108/61 03/30/20 16:14 36.7 C 56 L 17 91/47 L 93 03/30/20 15:38 60 03/30/20 12:04 62 PG Care Time/CCT Total # of Minutes Spent Total Time Spent with Patient: Total time spent is greater than 50% in co ordination of care (as documented) at patient's floor/unit and/or counseling patient: Coding Level of Care Code 62144 Subseq Hosp Care Lvl 2 Diagnoses Anemia due to blood loss D50.0 Heme positive stool R19.5 Choledocholithiasis K80.50 Acute on chronic diastolic (congestive) heart failure I50.33 H/O mechanical aortic valve replacement Z95.2 Atrial fibrillation I48.91 Atrial fibrillation type: unspecified Adult hypothyroidism E03.9 Pulmonary hypertension I27.20 Chronic hyponatremia E87.1 Fracture, thoracic vertebra S22.079D Encounter type: subsequent encounter Fracture healing: with routine healing Fracture morphology: unspecified fracture morphology Fracture type: closed Thoracic vertebra fracture level: T10 Hypomagnesemia E83.42 HTN (hypertension) I10 Hypertension type: essential hypertension Status post placement of cardiac pacemaker Z95.0 Shoulder pain, right M25.511 Chronicity: acute Constipation K59.09 Constipation type: other constipation type Hypokalemia E87.6 DVT prophylaxis Z29.9 Time Spent (min) 25 (1) Fracture, thoracic vertebra Encounter type: subsequent encounter Fracture healing: with routine healing Fracture morphology: unspecified fracture morphology Fracture type: closed Thoracic vertebra fracture level: T10 Qualified Code(s): S22.079D - Unspecified fracture of T9-T10 vertebra, subsequent encounter for fracture with routine healing (2) Atrial fibrillation Atrial fibrillation type: unspecified Qualified Code(s): I48.91 - Unspecified atrial fibrillation (3) Shoulder pain, right Chronicity: acute Qualified Code(s): M25.511 - Pain in right shoulder (4) HTN (hypertension) Hypertension type: essential hypertension Qualified Code(s): I10 - Essential (primary) hypertension (5) Constipation Constipation type: other constipation type Qualified Code(s): K59.09 - Other constipation
[2020-03-31] MEDS: LEVOTHYROXINE SODIUM 75 MCG TABLET PO SCH (06:02)
[2020-03-31] MEDS: DORZOLAMIDE/TIMOLOL 22.3/6.8MG/ML 10 ML BTL OP SCH ×2 (07:51→20:25)
[2020-03-31] MEDS: CALCIUM 600MG + VIT D 400 IU TAB PO SCH (07:51)
[2020-03-31] MEDS: FUROSEMIDE 40 MG TAB PO SCH ×2 (07:51→17:06)
[2020-03-31] MEDS: METOPROLOL TARTRATE 100 MG TAB PO SCH ×2 (07:52→20:28)
[2020-03-31] MEDS: PANTOprazole 40 MG TAB PO SCH ×2 (07:52→20:29)
[2020-03-31] MEDS: LOSARTAN POTASSIUM 50 MG TAB PO SCH (07:52)
[2020-03-31] MEDS: cephALEXin 500 MG CAP PO SCH ×4 (07:52→20:28)
[2020-03-31] MEDS: POTASSIUM CHLORIDE 20 MEQ TABCR PO SCH ×3 (07:53→20:28)
[2020-03-31] MEDS: POLYETHYLENE (MIRALAX) 17 GM PACK PO SCH (07:53)
[2020-03-31] MEDS: cycloSPORINE (RESTASIS) OPB SCH ×2 (07:54→20:26)
[2020-03-31] MEDS: SENNA 8.6 MG TAB PO SCH (10:33)
[2020-03-31] MEDS: HEPARIN SODIUM/DEXTROSE 25,000 UNITS/500 ML BAG IV SCH (15:52)
[2020-03-31] MEDS ORDERED: WARFARIN SOD 4 MG TAB PO SCH (16:00)
[2020-03-31] MEDS: NETARSUDIL 0.02% OP SCH (20:25)
--- NOTE | 2020-03-31 22:23 | Hospitalist Progress Note ---
Date of Service March 31, 2020 Assessment & Plan (1) Anemia due to blood loss: Likely combination of GI bleeding along with bleeding into RLE leading to acute blood loss anemia. s/p 2 units PRBCs this admission. H/H again stable overnight. Melena stool this am likely old blood only. No plans for repeat EGD/ERCP as long as H/H continue to remain stable. Allow AHA diet. Cont PPI bid. Resume heparin infusion without bolus. Cont coumadin 4mg daily. Daily PTT and INR. Daily CBC. - Over night had more stools. GI still thinks this is old blood. Continue heparin. restarted warfarin on 03/31 will continue to monitor hemoglobin (2) Heme positive stool: as above. during ERCP upper GI tract was grossly normal without any active bleeding. small bowel bleeding ? other ? h/h stable resume heparin drip without bolus. cont coumadin cautiously. (3) Choledocholithiasis: s/p ERCP on 03/21/20. numerous stones extracted. sphincterotomy performed. no stent placed. Continues to have NO signs or symptoms of acute cholecystitis. no plans per gen surg for cholecystectomy. may have outpatient treatment with Dr Mendoza for this issue (EUS guided cholecystoduodenostomy using LAMS). this would be performed at [facility]. recent LFTs wnl. (4) Acute on chronic diastolic (congestive) heart failure: acute component improved/likely resolved. placed IV lasix on hold. likely will resume PO lasix BID as preivous. appreciate Dr Nguyen's assistance from [facility]. (5) H/O mechanical aortic valve replacement: s/p vitamin K on 03/25 due to GI bleeding INR now subtherapeutic from such. H/H stable x 48 hours. RESUME HEPARIN DRIP cautiously today. Cont daily coumadin 4mg. Cont daily PTT and INR checks. (6) Atrial fibrillation: cont metoprolol BID controlled pacing on tele see above re: anticoagulation (7) Adult hypothyroidism: TSH wnl cont synthroid (8) Pulmonary hypertension: severe on echo 08/2019 need to assess for ambulatory oxygen at discharge (9) Chronic hyponatremia: with acute component presenting Na was 120 today 132 -- near baseline BMP am (10) Fracture, thoracic vertebra: osteoporotic in nature, 2nd to fall T10 pain control TLSO brace appreciate orthopedic consultation no plans for surgery vit D level wnl will consult ortho in regards to knee (11) Hypomagnesemia: replaced and resolved repeat level in am (12) HTN (hypertension): cont to hold amlodipine cont BB cont ARB controlled (13) Status post placement of cardiac pacemaker: noted pacing on monitor, stable (14) Shoulder pain, right: xrays w/o fracture advanced OA follow (15) Constipation: resolved with suppositories, oral agents, and enemas cont senna with miralax for bowel maintenance (16) Hypokalemia: replace PO repeat K and mag in am (17) DVT prophylaxis: resume heparin drip today cont coumadin daily coags cont PT/OT Admission and Anticipated Discharge Date Admission Date: March 21, 2020 Subjective Patient reports no new symptoms. Review of Systems Review of Systems: All systems reviewed & are unremarkable except as noted in HPI & below Physical Exam Physical Exam: Constitutional: WD/WN, vitals as above Eyes: EOM intact bilaterally; no conjunctival abnormality ENMT: external ear and nose normal, oropharynx normal Neck: trachea midline, no thyromegaly normal visual inspection Respiratory: normal respiratory effort, lungs clear to auscultation no respiratory distress Cardiovascular: RRR, no murmur, no edema Gastrointestinal (Abdomen): Inspection/Auscultation: abdomen normal to inspection; abdomen not distended Musculoskeletal: no cyanosis or clubbing, extremities motor strength 5/5; redness, swelling over anterior knee Skin: no rashes, warm and dry Neurologic: moves all extremities and awake Psychiatric: Orientation: alert, oriented to person and cooperative Results & Data Results & Data ([facility]) Vital Signs (Past 12 Hours) Vital Signs Temp Pulse Pulse Resp BP Pulse Ox 03/31/20 19:32 36.6 C 64 20 118/42 L 95 03/31/20 15:32 36.5 C 93 H 18 148/65 H 99 03/31/20 14:56 62 03/31/20 11:59 36.5 C 61 18 114/45 L 98 PG Care Time/CCT Total # of Minutes Spent Total Time Spent with Patient: Total time spent is greater than 50% in coordination of care (as documented) at patient's floor/unit and/or counseling patient: Coding Level of Care Code 74908 Subseq Hosp Care Lvl 2 Diagnoses Anemia due to blood loss D50.0 Heme positive stool R19.5 Choledocholithiasis K80.50 Acute on chronic diastolic (congestive) heart failure I50.33 H/O mechanical aortic valve replacement Z95.2 Atrial fibrillation I48.91 Atrial fibrillation type: unspecified Adult hypothyroidism E03.9 Pulmonary hypertension I27.20 Chronic hyponatremia E87.1 Fracture, thoracic vertebra S22.079D Encounter type: subsequent encounter Thoracic vertebra fracture level: T10 Fracture type: closed Fracture morphology: unspecified fracture morphology Fracture healing: with routine healing Hypomagnesemia E83.42 HTN (hypertension) I10 Hypertension type: essential hypertension Status post placement of cardiac pacemaker Z95.0 Shoulder pain, right M25.511 Chronicity: acute Constipation K59.09 Constipation type: other constipation type Hypokalemia E87.6 DVT prophylaxis Z29.9 Time Spent (min) 25 Comment updated family (1) Atrial fibrillation Atrial fibrillation type: unspecified Qualified Code(s): I48.91 - Unspecified atrial fibrillation (2) Fracture, thoracic vertebra Encounter type: subsequent encounter Thoracic vertebra fracture level: T10 Fracture type: closed Fracture morphology: unspecified fracture morphology Fracture healing: with routine healing Qualified Code(s): S22.079D - Unspecified fracture of T9-T10 vertebra, subsequent encounter for fracture with routine healing (3) HTN (hypertension) Hypertension type: essential hypertension Qualified Code(s): I10 - Essential (primary) hypertension (4) Shoulder pain, right Chronicity: acute Qualified Code(s): M25.511 - Pain in right shoulder (5) Constipation Constipation type: other constipation type Qualified Code(s): K59.09 - Other constipation
[2020-04-01] MEDS: LEVOTHYROXINE SODIUM 75 MCG TABLET PO SCH (06:23)
[2020-04-01 07:26] LABS: INR 1.3 (0.9-1.1); Prothrombin Time 13.1 Seconds (9.0-12.0)
[2020-04-01 07:28] LABS: Partial Thromboplastin Time 56.7 Seconds (21.0-31.0)
[2020-04-01] MEDS: PANTOprazole 40 MG TAB PO SCH ×2 (08:58→20:46)
[2020-04-01] MEDS: DORZOLAMIDE/TIMOLOL 22.3/6.8MG/ML 10 ML BTL OP SCH ×2 (08:59→20:45)
[2020-04-01] MEDS: cycloSPORINE (RESTASIS) OPB SCH ×2 (09:00→20:47)
[2020-04-01] MEDS: SENNA 8.6 MG TAB PO SCH (09:01)
[2020-04-01] MEDS: LOSARTAN POTASSIUM 50 MG TAB PO SCH (09:01)
[2020-04-01] MEDS: METOPROLOL TARTRATE 100 MG TAB PO SCH ×2 (09:02→20:47)
[2020-04-01] MEDS: CALCIUM 600MG + VIT D 400 IU TAB PO SCH (09:03)
[2020-04-01] MEDS: cephALEXin 500 MG CAP PO SCH ×4 (09:03→20:45)
[2020-04-01] MEDS: FUROSEMIDE 40 MG TAB PO SCH ×2 (09:03→17:21)
[2020-04-01] MEDS: POTASSIUM CHLORIDE 20 MEQ TABCR PO SCH ×3 (09:04→20:47)
[2020-04-01] MEDS: POLYETHYLENE (MIRALAX) 17 GM PACK PO SCH (09:17)
[2020-04-01] MEDS: HEPARIN SODIUM/DEXTROSE 25,000 UNITS/500 ML BAG IV SCH (13:38)
--- NOTE | 2020-04-01 15:30 | Orthopedic Progress Note ---
Date of Service April 01, 2020 Assessment & Plan (1) Hemarthrosis involving knee joint: Bruising and ecchymosis continues to slowly improve on current regimen. Continue p.o. Keflex, ice and elevation to right lower extremity and gentle physical therapy. (2) Prepatellar bursitis, right knee: Admission and Anticipated Discharge Date Admission Date: March 21, 2020 Subjective Patient reports feeling improvement each day. Pain well controlled, doing better with physical therapy she feels. No acute issues overnight. Denies F/C/N/V/SOB/CP. Review of Systems Review of Systems: All systems reviewed & are unremarkable except as noted in HPI & below Constitutional: as per Subjective / HPI Physical Exam Physical Exam: RLE NVSI +EHL/FHL/TA/GS SILT grossly, +2 DP pulse, compartments soft and compressible, anterior inferior one third abrasion measuring 1.5 x 2 cm, clean dry and intact, erythema and edema mildly improved. Constitutional: WD/WN, vitals as above Results & Data ([facility]) Vital Signs (Past 12 Hours) Vital Signs Temp Pulse Resp BP Pulse Ox 04/01/20 15:01 36.5 C 62 18 142/65 H 99 04/01/20 13:14 36.5 C 63 20 104/46 L 91 04/01/20 07:14 36.7 C 62 18 152/64 H 99 04/01/20 03:58 36.6 C 67 18 110/46 L 99
[2020-04-01] MEDS ORDERED: Nursing to Pharmacy Communication STA (15:57)
[2020-04-01] MEDS ORDERED: WARFARIN SOD 3 MG TAB PO SCH (16:00)
[2020-04-01] MEDS ORDERED: WARFARIN SOD 4 MG TAB PO ONE (16:15)
[2020-04-01] MEDS: NETARSUDIL 0.02% OP SCH (20:48)
--- NOTE | 2020-04-01 23:19 | Hospitalist Progress Note ---
Date of Service April 01, 2020 Assessment & Plan (1) Anemia due to blood loss: Likely combination of GI bleeding along with bleeding into RLE leading to acute blood loss anemia. s/p 2 units PRBCs this admission. H/H again stable overnight. Melena stool this am likely old blood only. No plans for repeat EGD/ERCP as long as H/H continue to remain stable. Allow AHA diet. Cont PPI bid. Resume heparin infusion without bolus. Cont coumadin 4mg daily. Daily PTT and INR. Daily CBC. - Over night had more stools. GI still thinks this is old blood. Continue heparin. restarted warfarin on 03/31 will continue to monitor hemoglobin (2) Heme positive stool: as above. during ERCP upper GI tract was grossly normal without any active bleeding. small bowel bleeding ? other ? h/h stable resume heparin drip without bolus. cont coumadin cautiously. (3) Choledocholithiasis: s/p ERCP on 03/21/20. numerous stones extracted. sphincterotomy performed. no stent placed. Continues to have NO signs or symptoms of acute cholecystitis. no plans per gen surg for cholecystectomy. may have outpatient treatment with Dr Mendoza for this issue (EUS guided cholecystoduodenostomy using LAMS). this would be performed at [facility]. recent LFTs wnl. (4) Acute on chronic diastolic (congestive) heart failure: acute component improved/likely resolved. placed IV lasix on hold. likely will resume PO lasix BID as preivous. appreciate Dr Nguyen's assistance from [facility]. (5) H/O mechanical aortic valve replacement: s/p vitamin K on 03/25 due to GI bleeding INR now subtherapeutic from such. H/H stable x 48 hours. RESUME HEPARIN DRIP cautiously today. Cont daily coumadin 4mg. Cont daily PTT and INR checks. (6) Atrial fibrillation: cont metoprolol BID controlled pacing on tele see above re: anticoagulation (7) Adult hypothyroidism: TSH wnl cont synthroid (8) Pulmonary hypertension: severe on echo 08/2019 need to assess for ambulatory oxygen at discharge (9) Chronic hyponatremia: with acute component presenting Na was 120 today 132 -- near baseline BMP am (10) Fracture, thoracic vertebra: osteoporotic in nature, 2nd to fall T10 pain control TLSO brace appreciate orthopedic consultation no plans for surgery vit D level wnl will consult ortho in regards to knee (11) Hypomagnesemia: replaced and resolved repeat level in am (12) HTN (hypertension): cont to hold amlodipine cont BB cont ARB controlled (13) Status post placement of cardiac pacemaker: noted pacing on monitor, stable (14) Shoulder pain, right: xrays w/o fracture advanced OA follow (15) Constipation: resolved with suppositories, oral agents, and enemas cont senna with miralax for bowel maintenance (16) Hypokalemia: replace PO repeat K and mag in am (17) DVT prophylaxis: resume heparin drip today cont coumadin daily coags cont PT/OT Admission and Anticipated Discharge Date Admission Date: March 21, 2020 Subjective Patient reports swelling on right knee. Review of Systems Review of Systems: All systems reviewed & are unremarkable except as noted in HPI & below Physical Exam Physical Exam: Constitutional: WD/WN, vitals as above Eyes: EOM intact bilaterally; no conjunctival abnormality ENMT: external ear and nose normal, oropharynx normal Neck: trachea midline, no thyromegaly normal visual inspection Respiratory: normal respiratory effort, lungs clear to auscultation no respiratory distress Cardiovascular: RRR, no murmur, no edema Gastrointestinal (Abdomen): Inspection/Auscultation: abdomen normal to inspection; abdomen not distended Musculoskeletal: no cyanosis or clubbing, extremities motor strength 5/5; decreased redness, decreased swelling over anterior knee Skin: no rashes, warm and dry Neurologic: moves all extremities and awake Psychiatric: Orientation: alert, oriented to person and cooperative Results & Data Results & Data ([facility]) Vital Signs (Past 12 Hours) Vital Signs Temp Pulse Pulse Resp BP Pulse Ox 04/01/20 23:00 36.6 C 88 18 136/65 97 04/01/20 19:00 36.5 C 63 18 124/63 93 04/01/20 15:59 60 04/01/20 15:01 36.5 C 62 18 142/65 H 99 04/01/20 13:14 36.5 C 63 20 104/46 L 91 PG Care Time/CCT Total # of Minutes Spent Total Time Spent with Patient: Total time spent is greater than 50% in coordination of care (as documented) at patient's floor/unit and/or counseling patient: Coding Level of Care Code 29108 Subseq Hosp Care Lvl 2 Diagnoses Anemia due to blood loss D50.0 Heme positive stool R19.5 Choledocholithiasis K80.50 Acute on chronic diastolic (congestive) heart failure I50.33 H/O mechanical aortic valve replacement Z95.2 Atrial fibrillation I48.91 Atrial fibrillation type: unspecified Adult hypothyroidism E03.9 Pulmonary hypertension I27.20 Chronic hyponatremia E87.1 Fracture, thoracic vertebra S22.079D Encounter type: subsequent encounter Fracture healing: with routine healing Fracture morphology: unspecified fracture morphology Fracture type: closed Thoracic vertebra fracture level: T10 Hypomagnesemia E83.42 HTN (hypertension) I10 Hypertension type: essential hypertension Status post placement of cardiac pacemaker Z95.0 Shoulder pain, right M25.511 Chronicity: acute Constipation K59.09 Constipation type: other constipation type Hypokalemia E87.6 DVT prophylaxis Z29.9 Time Spent (min) 25 (1) Fracture, thoracic vertebra Encounter type: subsequent encounter Fracture healing: with routine healing Fracture morphology: unspecified fracture morphology Fracture type: closed Thoracic vertebra fracture level: T10 Qualified Code(s): S22.079D - Unspecified fracture of T9-T10 vertebra, subsequent encounter for fracture with routine healing (2) Atrial fibrillation Atrial fibrillation type: unspecified Qualified Code(s): I48.91 - Unspecified atrial fibrillation (3) Shoulder pain, right Chronicity: acute Qualified Code(s): M25.511 - Pain in right shoulder (4) HTN (hypertension) Hypertension type: essential hypertension Qualified Code(s): I10 - Essential (primary) hypertension (5) Constipation Constipation type: other constipation type Qualified Code(s): K59.09 - Other constipation
[2020-04-02] MEDS: HEPARIN SODIUM/DEXTROSE 25,000 UNITS/500 ML BAG IV SCH (05:22)
[2020-04-02] MEDS: LEVOTHYROXINE SODIUM 75 MCG TABLET PO SCH (05:22)
[2020-04-02 06:23] LABS: Partial Thromboplastin Ratio 2.1
[2020-04-02 06:28] LABS: Partial Thromboplastin Time 58.3 Seconds (21.0-31.0)
[2020-04-02] MEDS: METOPROLOL TARTRATE 100 MG TAB PO SCH ×2 (07:58→20:44)
[2020-04-02] MEDS: ACETAMINOPHEN 325 MG TAB PO PRN (07:58)
[2020-04-02] MEDS: POTASSIUM CHLORIDE 20 MEQ TABCR PO SCH ×3 (07:58→20:44)
[2020-04-02] MEDS: FUROSEMIDE 40 MG TAB PO SCH ×2 (07:59→17:35)
[2020-04-02] MEDS: LOSARTAN POTASSIUM 50 MG TAB PO SCH (07:59)
[2020-04-02] MEDS: CALCIUM 600MG + VIT D 400 IU TAB PO SCH (07:59)
[2020-04-02] MEDS: cycloSPORINE (RESTASIS) OPB SCH ×2 (08:00→20:41)
[2020-04-02] MEDS: PANTOprazole 40 MG TAB PO SCH ×2 (08:00→20:44)
[2020-04-02] MEDS: cephALEXin 500 MG CAP PO SCH ×4 (08:00→20:44)
[2020-04-02] MEDS: POLYETHYLENE (MIRALAX) 17 GM PACK PO SCH (08:00)
[2020-04-02] MEDS: DORZOLAMIDE/TIMOLOL 22.3/6.8MG/ML 10 ML BTL OP SCH ×2 (08:00→20:41)
[2020-04-02] MEDS: SENNA 8.6 MG TAB PO SCH (08:01)
[2020-04-02] MEDS ORDERED: WARFARIN SOD 4 MG TAB PO ONE (16:04)
[2020-04-02] MEDS: NETARSUDIL 0.02% OP SCH (20:40)
--- NOTE | 2020-04-02 23:50 | Hospitalist Progress Note ---
Date of Service April 02, 2020 Assessment & Plan (1) Anemia due to blood loss: Likely combination of GI bleeding along with bleeding into RLE leading to acute blood loss anemia. s/p 2 units PRBCs this admission. H/H again stable overnight. Melena stool this am likely old blood only. No plans for repeat EGD/ERCP as long as H/H continue to remain stable. Allow AHA diet. Cont PPI bid. Resume heparin infusion without bolus. Cont coumadin 4mg daily. Daily PTT and INR. Daily CBC. - Over night had more stools. GI still thinks this is old blood. Continue heparin. restarted warfarin on 03/31 will continue to monitor hemoglobin -INR continues to be subtherapeutic, may consider transfer to [facility] (2) Heme positive stool: as above. during ERCP upper GI tract was grossly normal without any active bleeding. small bowel bleeding ? other ? h/h stable resume heparin drip without bolus. cont coumadin cautiously. (3) Choledocholithiasis: s/p ERCP on 03/21/20. numerous stones extracted. sphincterotomy performed. no stent placed. Continues to have NO signs or symptoms of acute cholecystitis. no plans per gen surg for cholecystectomy. may have outpatient treatment with Dr Mendoza for this issue (EUS guided cholecystoduodenostomy using LAMS). this would be performed at [facility]. recent LFTs wnl. (4) Acute on chronic diastolic (congestive) heart failure: acute component improved/likely resolved. placed IV lasix on hold. likely will resume PO lasix BID as preivous. appreciate Dr Nguyen's assistance from [facility]. (5) H/O mechanical aortic valve replacement: s/p vitamin K on 03/25 due to GI bleeding INR now subtherapeutic from such. H/H stable x 48 hours. RESUME HEPARIN DRIP cautiously today. Cont daily coumadin 4mg. Cont daily PTT and INR checks. (6) Atrial fibrillation: cont metoprolol BID controlled pacing on tele see above re: anticoagulation (7) Adult hypothyroidism: TSH wnl cont synthroid (8) Pulmonary hypertension: severe on echo 08/2019 need to assess for ambulatory oxygen at discharge (9) Chronic hyponatremia: with acute component presenting Na was 120 today 132 -- near baseline BMP am (10) Fracture, thoracic vertebra: osteoporotic in nature, 2nd to fall T10 pain control TLSO brace appreciate orthopedic consultation no plans for surgery vit D level wnl In rgeards to her knee, her right knee appears to be gracually but slowly improving. (11) Hypomagnesemia: replaced and resolved (12) HTN (hypertension): cont to hold amlodipine cont BB cont ARB controlled (13) Status post placement of cardiac pacemaker: noted pacing on monitor, stable (14) Shoulder pain, right: xrays w/o fracture advanced OA follow (15) Constipation: resolved with suppositories, oral agents, and enemas cont senna with miralax for bowel maintenance (16) Hypokalemia: replaced (17) DVT prophylaxis: resume heparin drip today cont coumadin daily coags cont PT/OT Admission and Anticipated Discharge Date Admission Date: March 21, 2020 Subjective 89 yo female reports feeling well Her main complaint is her right knee. Review of Systems Review of Systems: All systems reviewed & are unremarkable except as noted in HPI & below Physical Exam Physical Exam: Constitutional: WD/WN, vitals as above Eyes: EOM intact bilaterally; no conjunctival abnormality ENMT: external ear and nose normal, oropharynx normal Neck: trachea midline, no thyromegaly normal visual inspection Respiratory: normal respiratory effort, lungs clear to auscultation no respiratory distress Cardiovascular: RRR, no murmur, no edema Gastrointestinal (Abdomen): Inspection/Auscultation: abdomen normal to inspection; abdomen not distended Musculoskeletal: no cyanosis or clubbing, extremities motor strength 5/5; decreased redness, decreased swelling over anterior knee Skin: no rashes, warm and dry Neurologic: moves all extremities and awake Psychiatric: Orientation: alert, oriented to person and cooperative Results & Data Results & Data ([facility]) Vital Signs (Past 12 Hours) Vital Signs Temp Pulse Pulse Resp BP Pulse Ox 04/02/20 23:00 36.7 C 74 20 162/63 H 94 04/02/20 19:33 36.6 C 64 12 109/61 97 04/02/20 15:41 70 04/02/20 15:13 36.5 C 61 21 120/56 L 95 PG Care Time/CCT Total # of Minutes Spent Total Time Spent with Patient: Total time spent is greater than 50% in coordination of care (as documented) at patient's floor/unit and/or counseling patient: Coding Level of Care Code 73675 Subseq Hosp Care Lvl 2 Diagnoses Anemia due to blood loss D50.0 Heme positive stool R19.5 Choledocholithiasis K80.50 Acute on chronic diastolic (congestive) heart failure I50.33 H/O mechanical aortic valve replacement Z95.2 Atrial fibrillation I48.91 Atrial fibrillation type: unspecified Adult hypothyroidism E03.9 Pulmonary hypertension I27.20 Chronic hyponatremia E87.1 Fracture, thoracic vertebra S22.079D Encounter type: subsequent encounter Fracture healing: with routine healing Fracture morphology: unspecified fracture morphology Fracture type: closed Thoracic vertebra fracture level: T10 Hypomagnesemia E83.42 HTN (hypertension) I10 Hypertension type: essential hypertension Status post placement of cardiac pacemaker Z95.0 Shoulder pain, right M25.511 Chronicity: acute Constipation K59.09 Constipation type: other constipation type Hypokalemia E87.6 DVT prophylaxis Z29.9 (1) Fracture, thoracic vertebra Encounter type: subsequent encounter Fracture healing: with routine healing Fracture morphology: unspecified fracture morphology Fracture type: closed Thoracic vertebra fracture level: T10 Qualified Code(s): S22.079D - Unspecified fracture of T9-T10 vertebra, subsequent encounter for fracture with routine healing (2) Atrial fibrillation Atrial fibrillation type: unspecified Qualified Code(s): I48.91 - Unspecified atrial fibrillation (3) Shoulder pain, right Chronicity: acute Qualified Code(s): M25.511 - Pain in right shoulder (4) HTN (hypertension) Hypertension type: essential hypertension Qualified Code(s): I10 - Essential (primary) hypertension (5) Constipation Constipation type: other constipation type Qualified Code(s): K59.09 - Other constipation
[2020-04-03] MEDS: LEVOTHYROXINE SODIUM 75 MCG TABLET PO SCH (05:54)
[2020-04-03 07:28] LABS: INR 1.4 (0.9-1.1); Partial Thromboplastin Ratio 2.1; Prothrombin Time 14.8 Seconds (9.0-12.0)
[2020-04-03 07:37] LABS: Partial Thromboplastin Time 59.5 Seconds (21.0-31.0)
[2020-04-03 08:00] LABS: Albumin Level 2.8 gm/dl (3.4-5.0); Calcium 9.1 mg/dl (8.5-10.1); Creatinine Clr Calc Pharmacy 59.9 ml/min; Est GFR (Non-African American) 78.5; Potassium 3.5 mmol/L (3.5-5.1)
[2020-04-03 08:03] LABS: Albumin Globulin Ratio 0.7 (0.9-2); Bilirubin,Total 1.1 mg/dl (0.2-1); Total Protein 6.8 gm/dl (6.4-8.2)
[2020-04-03] MEDS: POTASSIUM CHLORIDE 20 MEQ TABCR PO SCH ×2 (08:15→14:47)
[2020-04-03] MEDS: cephALEXin 500 MG CAP PO SCH ×2 (08:15→12:04)
[2020-04-03] MEDS: LOSARTAN POTASSIUM 50 MG TAB PO SCH (08:15)
[2020-04-03] MEDS: PANTOprazole 40 MG TAB PO SCH (08:16)
[2020-04-03] MEDS: METOPROLOL TARTRATE 100 MG TAB PO SCH (08:16)
[2020-04-03] MEDS: CALCIUM 600MG + VIT D 400 IU TAB PO SCH (08:17)
[2020-04-03] MEDS: FUROSEMIDE 40 MG TAB PO SCH (08:17)
[2020-04-03] MEDS: DORZOLAMIDE/TIMOLOL 22.3/6.8MG/ML 10 ML BTL OP SCH (08:18)
[2020-04-03] MEDS: cycloSPORINE (RESTASIS) OPB SCH (08:19)
[2020-04-03] MEDS: POLYETHYLENE (MIRALAX) 17 GM PACK PO SCH (08:20)
[2020-04-03] MEDS: SENNA 8.6 MG TAB PO SCH (08:20)
[2020-04-03 08:25] LABS: Hematocrit (blood only) 30.1 % (37-47); Hemoglobin 9.8 g/dL (12.0-16.0); Mean Corpuscular Hemoglobin 32.3 pg (25-34); Mean Corpuscular Hgb Conc 32.6 g/dL (32-36); Mean Corpuscular Volume 99.3 fL (80-100); Mean Platelet Volume 10.5 fL (7.4-10.4); Platelet Count 207 K/uL (130-400); RDW Coefficient of Variation 17.4 % (11.5-14.5); RDW Standard Deviation 62.7 fL (36.4-46.3); Red Blood Count 3.03 M/uL (4.2-5.4); White Blood Count 5.95 K/uL (4.8-10.8)
[2020-04-03] MEDS: ACETAMINOPHEN 325 MG TAB PO PRN (11:32)
[2020-04-03] MEDS: HEPARIN SODIUM/DEXTROSE 25,000 UNITS/500 ML BAG IV SCH (14:46)
[2020-04-03] MEDS ORDERED: WARFARIN SOD 4 MG TAB PO ONE (14:48)
--- NOTE | 2020-04-03 14:52 | Discharge Summary ---
Date of Service April 03, 2020 Admission HPI Per Admitting Provider Clarisse Mo is an 89yo C female presenting to the ER after a mechanical fall at home. Patient had a mechanical fall in her home approximately two weeks ago, she thinks she tripped on a rug. She injured her right knee and has extensive bruising and tenderness. She reports that her leg has felt unstable on occasion since her fall two weeks ago. Patient was at home this evening and went into the kitchen to prepare dinner for herself. She feels that her right knee buckled underneath her and gave out. She tried to hold herself up on the counter but eventually slid down on her bottom onto the kitchen floor. She was unable to get up due to weakness and was down for 4 hours before using her cane to get her phone and call her niece. Patient denies chest pain/palpitations/SOB/cough/wheeze preceding or following the fall. She denies head trauma or loss of consciousness. She has been having occasional dizziness as well as two days of nausea and frequent, soft bowel movements. She noted a small amount of bright red blood on the toilet paper today which she blamed on her hemorrhoids. She has some back pain from being on the ground x 3 hours, otherwise, no complaints at this time. On arrival to the ER she was found to be hypertensive at 177/70, NAD ER Course: Dilaudid 0.25mg IV, Zofran 4mg IV, Reglan 10mg IV, KCl 40mEq PO and NSS x 500 mL Principal Diagnosis Pt feels much better. She still feels a bit unsteady, but also notes that she is ambulating better than [employer]. She feels that her endurance is very low at this point. No ash SOB, but does feel fatigued with prolonged walking. Pt denies fever, SOB, chest pain, abd pain, n/v/c/d, LE pain or swelling. She does have some pain to the R collar bone s/p fall. Minor rib and back pain. Discharge Exam Constitutional WD/WN, vitals as above Eyes normal visual john by confrontation and + anicteric sclerae Neck normal visual inspection and trachea midline Respiratory normal respiratory effort, lungs clear to auscultation Cardiovascular Rate/Rhythm: regular rate and regular rhythm Gastrointestinal (Abdomen) Inspection/Auscultation: abdomen not distended Percussion/Palpation: abdomen soft; abdomen nontender Musculoskeletal Head/Neck/Chest: normocephalic and head atraumatic Skin no rashes, warm and dry Neurologic awake; not confused Speech / Cognition: normal speech Psychiatric A+Ox3, euthymic affect Discharge Data Allergies Allergy/AdvReac Type Severity Reaction Status Date / Time Sulfa (Sulfonamide Allergy Intermediate HIVES Verified 03/21/20 02:04 Antibiotics) Consultations 03/21/20 01:44 ED Decision to Admit Stat 03/21/20 09:09 Consult Gastroenterology Routine 03/21/20 09:16 Consult Cardiology Routine 03/21/20 10:18 Consult Orthopedic Surgery Routine 03/21/20 12:33 Consult General Surgery Routine 03/23/20 13:48 Consult Case Management - Discharge Planning Routine 03/29/20 13:22 Consult Orthopedic Surgery Routine Procedures Performed Operation Date: 03/21/20 14:35 Actual Procedures p Endoscopic Retrograde Cholangiopancreatogram(Not Applicable) - Francesca Mendoza MD Ordered Studies 03/21/20 00:14 CT abd pelvis IV con only Urgent CT cervical spine wo con Urgent CT chest w con Urgent CT head/brain wo con Urgent CT lumbar spine wo con Urgent CT thoracic spine wo con Urgent 03/21/20 02:24 US abdomen limited Urgent 03/21/20 14:30 FL ERCP biliary ductal Routine 03/29/20 16:08 US venous doppler LE RT Routine Hospital Course (1) Anemia due to blood loss: Likely combination of GI bleeding along with bleeding into RLE leading to acute blood loss anemia. s/p 2 units PRBCs this admission. H/H stable since 03/28 Melena stool in ED likely old blood only. No plans for repeat EGD/ERCP as long as H/H continue to remain stable. Allow AHA diet. Cont PPI bid. Resume heparin infusion without bolus. Cont coumadin 4mg daily. Daily PTT and INR. Daily CBC. - Over night had more stools. GI still thinks this is old blood. Continue heparin. restarted warfarin on 04/02 Continue with lovenox bridging d/w pharmacy and recs for 1mg/kg BID given INR goal is 2.5-3.5 Will need 5 days with 48 hrs therapeutic, to be managed by [facility] (2) Heme positive stool: as above. during ERCP upper GI tract was grossly normal without any active bleeding. small bowel bleeding ? other ? h/h stable Anticoagulation as above (3) Choledocholithiasis: s/p ERCP on 03/21/20. numerous stones extracted. sphincterotomy performed. no stent placed. Continues to have NO signs or symptoms of acute cholecystitis. no plans per gen surg for cholecystectomy. may need outpatient treatment with Dr Mendoza for this issue (EUS guided cholecystoduodenostomy using LAMS). this would be performed at [facility]. recent LFTs wnl. (4) Acute on chronic diastolic (congestive) heart failure: acute component improved/likely resolved. resume PO lasix BID as preivous. appreciate Dr Nguyen's assistance from [facility]. (5) H/O mechanical aortic valve replacement: s/p vitamin K on 03/25 due to GI bleeding INR management as noted above H/H stable since 03/28 RESUME HEPARIN DRIP cautiously today. Cont daily coumadin 4mg. Cont daily PTT and INR checks. (6) Atrial fibrillation: cont metoprolol BID controlled pacing on tele see above re: anticoagulation (7) Adult hypothyroidism: TSH wnl cont synthroid (8) Pulmonary hypertension: severe on echo 08/2019 need to assess for ambulatory oxygen at discharge (9) Chronic hyponatremia: with acute component presenting Na was 120 134 on d/c (10) Fracture, thoracic vertebra: osteoporotic in nature, 2nd to fall T10 pain control TLSO brace appreciate orthopedic consultation no plans for surgery vit D level wnl Added calcitonin on 04/03 for help with pain control In regards to her knee, her right knee appears to be gradually but slowly improving Ortho recs for short course of keflex, will d/c with 2 more days for a total of 7 days tx (11) Hypomagnesemia: replaced and resolved (12) HTN (hypertension): cont to hold amlodipine cont BB cont ARB controlled (13) Status post placement of cardiac pacemaker: noted pacing on monitor, stable (14) Shoulder pain, right: xrays w/o fracture advanced OA follow (15) Constipation: resolved with suppositories, oral agents, and enemas cont senna with miralax for bowel maintenance (16) Hypokalemia: replaced (17) DVT prophylaxis: d/c to [facility] for rehab Total Time Total Time Spent Total Time Spent (In Minutes): >30 Total Time Includes: Examination of the Patient, Discharge Planning, Medication Reconciliation, Communication With Other Providers and Other Discharge Plan Discharge Items Patient Disposition: Transfer Inpatient Rehab Fac Reason For Visit: FALL, WEAKNESS, ELECTROLYTE ANORMALITIES Discharge Diagnosis: Fall, electrolyte abnormalities, GIB Activity: Resume your previous activity Non-emergency contact: Primary Care Provider and Case Maker Call non-emergency contact if: you have any medication questions, your symptoms worsen and your pain is not controlled Follow-up/Referrals: Juice Robledo MD [Primary Care Provider] - Diet: Heart Healthy Addtl Attending Provider Instructions: PT/INR daily or as per facility physician Pending Studies at Discharge: No Stand-Alone Forms: My [facility] Skilled Items Patient informed of condition?: No DNR: No Discharge Level of Care: Acute rehab Communicable Disease: No Discharge Prognosis: Improving Lines: None Urinary Catheter: No Medications and DC Order Prescriptions: New potassium chloride [Klor-Con M20] 20 mEq Tablet,Er Particles/Crystals 20 meq PO TID Qty: 90 RF: 0 cephalexin 500 mg Capsule 500 mg PO QID Qty: 8 RF: 0 pantoprazole 40 mg Tablet,Delayed Release (Dr/Ec) 40 mg PO BID Qty: 60 RF: 0 Restasis 0.05 % Dropperette 1 drp OPB BID Qty: 60 RF: 0 enoxaparin [Lovenox] 80 mg/0.8 mL syringe 80 mg subcut Q12H Qty: 8 RF: 0 calcitonin (salmon) 200 unit/actuation spray,non-aerosol 1 spray intranasal (ALT) DAILY Qty: 3.7 RF: 0 Continued furosemide [Lasix] 40 mg Tablet 40 mg PO BID Qty: 0 RF: 0 aspirin [Aspirin Low Dose] 81 mg Tablet,Delayed Release (Dr/Ec) 81 mg PO QAM Qty: 0 RF: 0 levothyroxine 75 mcg Tablet 75 mcg PO QAM Qty: 0 RF: 0 Centrum Silver Women 8 mg iron-400 mcg-300 mcg Tablet 1 tab PO DAILY Qty: 0 RF: 0 warfarin 3 mg Tablet 3 mg PO 3XWK Qty: 0 RF: 0 metoprolol tartrate 100 mg Tablet 100 mg PO BID Qty: 0 RF: 0 lorazepam [Ativan] 0.5 mg Tablet 0.5 mg PO BID PRN (Reason: Anxiety) Qty: 0 RF: 0 (DME) Oxygen Home Liters Per Minute 2 liters NA HS Qty: 0 RF: 0 amlodipine [Norvasc] 5 mg Tablet 5 mg PO QAM Qty: 0 RF: 0 Restasis 0.05 % dropperette 1 drp OPB BID RF: 0 Slow-Mag 1 tab PO TIDM RF: 0 potassium chloride 2 tab PO TIDM RF: 0 Rhopressa 0.02 % Drops 1 drp OPB PM RF: 0 warfarin 4 mg Tablet 4 mg PO 4XWK RF: 0 dorzolamide-timolol 22.3-6.8 mg/mL drops 1 drp ophthalmic (eye) AMPM RF: 0 losartan 25 mg Tablet 50 mg PO AMPM RF: 0 calcium phosphate-vitamin D3 [Caltrate Gummy Bites] 250-400 mg-unit Tablet,Chewable 1 tab PO DAILY RF: 0 Discharge Orders: Discharge Order (Routine); Ordered 04/03/20 Ordered By: Maida Alex Admission Data Admit Date/Time: 03/21/20 02:27 Attending Provider: Maida Alex Admit Provider: Brianda Dalton Primary Care Provider: Juice Robledo Other Providers: Brianda Dalton ; Francesca Mendoza ; Jimmy Mccloud ; Theodore Nugent ; Chiara Tobar ; [facility] ; Kian Shen ; Isaak Roman ; Nya Subramanian ; Tito Fairbanks ; Sisi Jim ; Omi Paul ; Jabier Caldwell ; Laith Bocanegra ; Jabier Harper ; Luis A Rey. ; Laith Eldridge ; Bryant Miranda ; Zane Espinal ; Michele Grande ; Vikash Almonte ; Ze Dasilva ; Sisi Colon ; Lior Rowland ; Jeffrey Negrete ; Christina Mejias ; Wilfredo Aragon ; Jina Viera Other Interventions: Discharge Summary Assessment (RN) Last Done: 09/24/20 16:18 Coding Level of Care Code D/C Day Management >30 mins Diagnoses Anemia due to blood loss D50.0 Heme positive stool R19.5 Choledocholithiasis K80.50 Acute on chronic diastolic (congestive) heart failure I50.33 H/O mechanical aortic valve replacement Z95.2 Atrial fibrillation I48.91 Atrial fibrillation type: unspecified Adult hypothyroidism E03.9 Pulmonary hypertension I27.20 Chronic hyponatremia E87.1 Fracture, thoracic vertebra S22.079D Encounter type: subsequent encounter Fracture healing: with routine healing Fracture morphology: unspecified fracture morphology Fracture type: closed Thoracic vertebra fracture level: T10 Hypomagnesemia E83.42 HTN (hypertension) I10 Hypertension type: essential hypertension Status post placement of cardiac pacemaker Z95.0 Shoulder pain, right M25.511 Chronicity: acute Constipation K59.09 Constipation type: other constipation type Hypokalemia E87.6 DVT prophylaxis Z29.9
== END 2020-04-03 16:37 | DRG 542 ==
LOC: ED 23:51 → 2W 03-21 02:27 → SUATTDRO 03-21 02:27 → 2W 03-21 03:09

== ENCOUNTER 2020-09-18 08:16 | Inpatient (IN) ==
[2020-09-18] MEDS ORDERED: SODIUM CHLORIDE 0.9% 1000ML 1,000 ML IV ONE (08:31)
--- NOTE | 2020-09-18 08:41 | Emergency Department Note ---
Impression & Plan Cholecystitis, Acute hyponatremia, Abdominal pain ED Provider Note NAME: XIANG GRANADOS AGE: 89 SEX: F : 1930 ARRIVES VIA: Ambulance INFORMANT: Patient, prehospital personnel ED PROVIDER(S): Demetrio Castaneda DO CHIEF COMPLAINT: Abdominal pain HPI: The patient is an 89-year-old female who presented to the emergency depart ment for an evaluation of abdominal pain. The patient states that she has been noticing crampy burning across her entire abdomen. She is also noticed multiple episodes of loose bowel movements. She has had ongoing issues with loose bowel movements over the course of the last few months. Her primary care physician did start her on medication for diarrhea. She also states that she has had a colonoscopy in the past but no reason for her chronic diarrhea has been found. She denies having any fever. She has had no recent trauma. She started noticing she was having increased frequency of her bowel movements which have been soft and not watery. She is noticed no rectal bleeding. Over the last 24 hours she did note that her hemorrhoids were starting to bother her more and she did note some serious bleeding. The patient takes blood thinners. She called her primary care physician and was advised to come to the emergency department for further evaluation. The patient does wear oxygen for chronic breathing problems. She states that she has had some worsening of her breathing over the last few days. ROS: See above HPI for pertinent positives & negatives. A total of 10 systems reviewed and were otherwise negative. PAST MEDICAL HISTORY: See Below PAST SURGICAL HISTORY: See Below FAMILY HISTORY: See Below SOCIAL HISTORY: See Below HOME MEDICATIONS: See Below ALLERGIES: See Below VITALS: See Below PHYSICAL EXAMINATION: GENERAL: Patient is awake alert in no acute distress patient is resting comfortably and showing no signs of anxiety EYES: The conjunctivae are clear. The pupils are round and reactive. EARS, NOSE, MOUTH AND THROAT: The nose is without any evidence of any deformity. NECK: The neck is nontender and supple. RESPIRATORY: Shallow respirations were noted. Rales were noted at both bases. CARDIOVASCULAR: Regular rhythm was noted to auscultation. Metallic click was noted auscultation. GASTROINTESTINAL: The abdomen is moderately distended and diffusely tender. There is no specific guarding or rigidity. MUSCULOSKELETAL/EXTREMITIES: There is no evidence of gross deformity full range of motion is noted in the hips and shoulders. SKIN: Bilateral lower extremity pedal edema was noted. NEUROLOGIC: Patient is awake alert and oriented x3. MEDICAL DECISION MAKING: The patient is an 89-year-old female who presented to the emergency department for ongoing abdominal pain for the last few months. The patient's pain has been intermittent but seems to have worsened over the last few days. She is also noticed a change in her bowel habits and has had some diarrhea. She denies having any fever. Her abdominal exam was consistent with very significant abdominal pain. I discussed the patient's laboratory and radiographic studies with her. She was treated with antibiotics in the emergency department for possible cholecystitis. I discussed the patient's condition with the on-call [facility] hospitalist group. She was found to have hyponatremia as well as an elevated D-dimer however these appear to be chronic findings for her. Triage Nursing notes reviewed. Prior medical records reviewed Vital Signs: reviewed and remarkable for elevated blood pressure. Differential diagnosis: Etiologies such as appendicitis, diverticulitis, obstruction, inflammatory bowel disease, renal colic, PUD, biliary pathology, pancreatitis, mesenteric ischemia, aortic pathology, infections, genitourinary, UTI, perforated viscus, as well as others were entertained. ER treatment provided: See below Diagnostics interpreted by me: ECG: EKG was obtained in the emergency department. My interpretation is ventricular paced rhythm at 60 bpm. There were no twin hills beats noted. There was a left bundle branch block pattern with the pacer. This was compared to a tracing from March [id number]. No significant changes were noted. Cardiac Monitoring: An order was placed for continuous cardiac monitoring. The monitor shows a rate of 60 bpm with paced rhythm. Laboratory studies: As stated above and show below. Imaging studies: See below Consultation(s): I discussed this case with Dr. Snowden who is on-call for the [facility] hospitalist group. Past Med/Surg History Medical History (Updated 09/18/20 @ 14:43 by Demetrio Castaneda DO) Adult hypothyroidism Atrial fibrillation CHF (congestive heart failure) Choledocholithiasis Chronic hyponatremia HTN (hypertension) Pacemaker Pulmonary hypertension severe Thickened endometrium Thyroid disease Surgical History Aortic valve replaced H/O mechanical aortic valve replacement History of colonoscopy 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 Status [facility] Family History Brother Cancer Sister Cancer Social History Smoking Status: Never smoker Tobacco Type: Cigarettes Second Hand Exposure: No; Hx Alcohol Use: No Hx Substance Use: No Preferred Language: Danish Communication Ability: Effective Block Handler Required: No Beliefs That Will Affect Care: None marital status: / Current Living Situation: Alone How many Children do You have: 2 Other Information That Helps Us Care for You: No Feels Safe at Home: Yes Safety Concerns: Feels Safe At This Time Assistive Devices: Oxygen - at Night and Walker Allergies Allergies Allergy/AdvReac Type Severity Reaction Status Date / Time Sulfa (Sulfonamide Allergy Intermediate HIVES Verified 09/18/20 10:27 Antibiotics) Home Meds Home Medications Medication Instructions Recorded Confirmed furosemide [Lasix] 40 mg PO BID #0 tab 01/17/12 09/18/20 Centrum Silver Women 1 tab PO DAILY@1200 #0 07/31/13 09/18/20 aspirin [Aspirin Low Dose] 81 mg PO QAM #0 07/31/13 09/18/20 levothyroxine 75 mcg PO QAM #0 tab 07/31/13 09/18/20 warfarin 1.5 mg PO 3XWK #0 tab 07/31/13 09/18/20 Oxygen Home #0 09/10/13 02/13/19 lorazepam [Ativan] 0.5 mg PO BID PRN #0 tab 09/10/13 09/18/20 metoprolol tartrate 100 mg PO BID #0 tab 09/10/13 09/18/20 amlodipine [Norvasc] 5 mg PO QAM #0 tab 01/16/18 09/18/20 dorzolamide-timolol 1 drp OPHTHALMIC (EYE) AMPM 08/12/19 09/18/20 losartan 50 mg PO AMPM 08/12/19 09/18/20 Rhopressa 1 drp OPB PM PRN 03/30/20 09/18/20 calcium carbonate [Calcium 500] 0 mg PO DAILY@1200 09/18/20 09/18/20 cyclosporine [Restasis] 1 drp OPB PM 09/18/20 09/18/20 eplerenone 25 mg PO DAILY 09/18/20 09/18/20 hydrocortisone 1 applic TOPICAL BID PRN 09/18/20 09/18/20 loperamide [Imodium] 2 mg PO Q4H PRN 09/18/20 09/18/20 magnesium chloride [Slow-Mag] 0 mg PO TID 09/18/20 09/18/20 warfarin 3 mg PO 4XWK 09/18/20 09/18/20 Previous Rx's Medication Instructions Recorded potassium chloride [Klor-Con M20] 20 meq PO TID #90 tab 04/03/20 Results & Data (ED) Vital Signs Vital Signs - 24 hr 09/18/20 08:24 09/18/20 08:26 09/18/20 08:52 Temperature 37.1 C Temperature Source Oral Pulse Rate 71 71 61 Pulse Rate from SpO2 Sensor Respiratory Rate 18 17 17 Respiratory Effort / Characteristics Non-Labored Spontaneous Respiratory Depth Normal Respiratory Pattern Regular Blood Pressure 137/63 137/63 127/50 L Blood Pressure Mean 87 87 75 Pulse Oximetry 98 89 L 96 Oxygen Delivery Method Room Air Oxygen Flow Rate 2 2 Sepsis Recent Fever Within 48 Hours No Sepsis New/Unexplained Change in Mental Status No Sepsis Action Taken by Nursing No Action Required 09/18/20 09:00 09/18/20 09:02 09/18/20 09:30 Temperature Temperature Source Pulse Rate 60 60 Pulse Rate from SpO2 Sensor 60 Respiratory Rate 16 16 Respiratory Effort / Characteristics Respiratory Depth Respiratory Pattern Blood Pressure 125/49 L 131/53 L Blood Pressure Mean 74 79 Pulse Oximetry 95 96 99 Oxygen Delivery Method Nasal Cannula Oxygen Flow Rate 2 2 2 Sepsis Recent Fever Within 48 Hours Sepsis New/Unexplained Change in Mental Status Sepsis Action Taken by Nursing 09/18/20 10:00 09/18/20 10:31 09/18/20 11:00 Temperature Temperature Source Pulse Rate 60 60 60 Pulse Rate from SpO2 Sensor 60 Respiratory Rate 16 21 22 Respiratory Effort / Characteristics Respiratory Depth Respiratory Pattern Blood Pressure 151/65 H 131/58 L 139/63 Blood Pressure Mean 93 82 88 Pulse Oximetry 99 96 95 Oxygen Delivery Method Oxygen Flow Rate 2 2 2 Sepsis Recent Fever Within 48 Hours Sepsis New/Unexplained Change in Mental Status Sepsis Action Taken by Nursing 09/18/20 11:30 09/18/20 12:00 Temperature Temperature Source Pulse Rate 62 60 Pulse Rate from SpO2 Sensor Respiratory Rate 20 16 Respiratory Effort / Characteristics Respiratory Depth Respiratory Pattern Blood Pressure 139/57 L 112/44 L Blood Pressure Mean 84 66 Pulse Oximetry 96 95 Oxygen Delivery Method Oxygen Flow Rate Sepsis Recent Fever Within 48 Hours Sepsis New/Unexplained Change in Mental Status Sepsis Action Taken by Detention Medications Current Medication List: was personally reviewed by me Laboratory Data Attestation: I reviewed the patient's lab results. Result diagrams: 09/18/20 08:55 09/18/20 08:55 Lab Results 09/18/20 09/18/20 09/18/20 Range/Units 08:55 08:55 08:55 WBC 5.61 (4.8-10.8) K/uL RBC 4.50 (4.2-5.4) M/uL Hgb 10.9 L (12.0-16.0) g/dL POC Hgb (12.0-16.0) g/dl Hct 34.4 L (37-47) % POC Hct (37-47) % MCV 76.4 L (80-100) fL MCH 24.2 L (25-34) pg MCHC 31.7 L (32-36) g/dL RDW Std Deviation 57.8 H (36.4-46.3) fL RDW Coeff of Sia 20.6 H (11.5-14.5) % Plt Count 130 (130-400) K/uL MPV 9.6 (7.4-10.4) fL Immature Gran % (Auto) 0.2 % Neut % (Auto) 73.3 % Lymph % (Auto) 16.9 % [place] % (Auto) 8.9 % Eos % (Auto) 0.5 % Baso % (Auto) 0.2 % Neut # (Auto) 4.11 (1.4-6.5) K/uL Lymph # (Auto) 0.95 L (1.2-3.4) K/uL [place] # (Auto) 0.50 (0.11-0.59) K/uL Eos # (Auto) 0.03 (0-0.5) K/uL Baso # (Auto) 0.01 (0-0.2) K/uL Immature Gran # (Auto) 0.01 (0.00-0.02) K/uL Anisocytosis Present Spherocytes Occasional PT 21.9 H (9.0-12.0) Seconds INR 2.3 H (0.9-1.1) APTT 35.5 H (21.0-31.0) Seconds PTT Ratio 1.3 POC Sodium (135-144) mmol/L Sodium 127 L (136-145) mmol/L POC Potassium (3.3-5.0) mmol/L Potassium 3.9 (3.5-5.1) mmol/L POC Chloride (101-112) mmol/L Chloride 91 L (98-107) mmol/L Carbon Dioxide 32 (21-32) mmol/L POC Total CO2 (24-31) mmol/L Anion Gap 4.0 (3-11) POC Anion Gap (16-25) mmol/L POC BUN (7-18) mg/dl BUN 11 (7-18) mg/dl Creatinine 0.59 L (0.6-1.2) mg/dl POC Creatinine (0.6-1.3) mg/dl Est Cr Clr Drug Dosing Not Reportable Est GFR ( Amer) 94.8 Est GFR (Non-Af Amer) 81.8 BUN/Creatinine Ratio 18.7 (10-20) Glucose 83 (70-99) mg/dl POC Glucose (other) (70-99) mg/dl Calcium 8.9 (8.5-10.1) mg/dl POC Ioniz Calcium Robert (1.12-1.32) mmol/l Total Bilirubin 1.1 H (0.2-1) mg/dl AST 28 (15-37) U/L ALT 24 (12-78) U/L Alkaline Phosphatase 162 H (45-117) U/L Troponin I 0.049 H* (0-0.045) ng/ml Total Protein 6.7 (6.4-8.2) gm/dl Albumin 2.9 L (3.4-5.0) gm/dl Globulin 3.8 (2.5-4.0) gm/dl Albumin/Globulin Ratio 0.8 L (0.9-2) Lipase 95 (73-393) U/L COVID-19 Eval Order SARS-CoV-2, RNA, NAAT (NEGATIVE) 09/18/20 09/18/20 09/18/20 Range/Units 09:01 10:20 10:20 WBC (4.8-10.8) K/uL RBC (4.2-5.4) M/uL Hgb (12.0-16.0) g/dL POC Hgb 13.3 (12.0-16.0) g/dl Hct (37-47) % POC Hct 39 (37-47) % MCV (80-100) fL MCH (25-34) pg MCHC (32-36) g/dL RDW Std Deviation (36.4-46.3) fL RDW Coeff of Sia (11.5-14.5) % Plt Count (130-400) K/uL MPV (7.4-10.4) fL Immature Gran % (Auto) % Neut % (Auto) % Lymph % (Auto) % [place] % (Auto) % Eos % (Auto) % Baso % (Auto) % Neut # (Auto) (1.4-6.5) K/uL Lymph # (Auto) (1.2-3.4) K/uL [place] # (Auto) (0.11-0.59) K/uL Eos # (Auto) (0-0.5) K/uL Baso # (Auto) (0-0.2) K/uL Immature Gran # (Auto) (0.00-0.02) K/uL Anisocytosis Spherocytes PT (9.0-12.0) Seconds INR (0.9-1.1) APTT (21.0-31.0) Seconds PTT Ratio POC Sodium 126 L (135-144) mmol/L Sodium (136-145) mmol/L POC Potassium 4.0 (3.3-5.0) mmol/L Potassium (3.5-5.1) mmol/L POC Chloride 87 L (101-112) mmol/L Chloride (98-107) mmol/L Carbon Dioxide (21-32) mmol/L POC Total CO2 31 (24-31) mmol/L Anion Gap (3-11) POC Anion Gap 13.0 L (16-25) mmol/L POC BUN 11 (7-18) mg/dl BUN (7-18) mg/dl Creatinine (0.6-1.2) mg/dl POC Creatinine 0.5 L (0.6-1.3) mg/dl Est Cr Clr Drug Dosing Est GFR ( Amer) Est GFR (Non-Af Amer) BUN/Creatinine Ratio (10-20) Glucose (70-99) mg/dl POC Glucose (other) 89 (70-99) mg/dl Calcium (8.5-10.1) mg/dl POC Ioniz Calcium Robert 1.19 (1.12-1.32) mmol/l Total Bilirubin (0.2-1) mg/dl AST (15-37) U/L ALT (12-78) U/L Alkaline Phosphatase (45-117) U/L Troponin I (0-0.045) ng/ml Total Protein (6.4-8.2) gm/dl Albumin (3.4-5.0) gm/dl Globulin (2.5-4.0) gm/dl Albumin/Globulin Ratio (0.9-2) Lipase (73-393) U/L COVID-19 Eval [facility] SARS-CoV-2, RNA, NAAT NEGATIVE (NEGATIVE) Administered Medications Discontinued Medications Sodium Chloride (Nss 1000ml) 1,000 mls @ 999 mls/hr IV .Q1H1M ONE Stop: 09/18/20 09:31 Last Admin: 09/18/20 09:04 Dose: Not Given Documented by: [id number] Piperacillin Sod/Tazobactam Sod (Zosyn) 4.5 gm in 120 mls @ 240 mls/hr IV NOW ONE Stop: 09/18/20 10:25 Last Infusion: 09/18/20 10:45 Dose: 0 mls/hr Documented by: [id number] Admin: 09/18/20 10:14 Dose: 240 mls/hr Documented by: [id number] Ioversol (Ioversol 100ml) 94 ml IV ONCE ONE Stop: 09/18/20 09:17 Last Admin: 09/18/20 09:16 Dose: 94 ml Documented by: [id number] Imaging Data Radiologist's Impression: Patient: XIANG GRANADOS Date: 09/18/20MR#: [id number]: [id number] GIULIA RDAcct ID:[id number]: Date: 1930[facility] Zip: [place] [address]Eek: 89Location: EDSex: FRoom/Bed:Att Phy:Diagnosis: DIARRHEAPri Phy: Juice Silverman M.D.Service Date: 09/18/20 Phy:Interpreting Phy: Nathan Oseguera MDA[facility] Phy: Ordering Phy: Demetrio Castaneda DO cc: ~ SINGLE VIEW CHEST CLINICAL HISTORY: Dyspnea. FINDINGS: An AP, portable, upright chest radiograph is compared to study dated 05/06/2020 and correlated with chest CT dated 03/21/2020. The examination is degraded by portable technique and patient rotation. The patient is status post midline sternotomy and cardiac valve surgery. A single lead cardiac pacemaker is unchanged in position and partially obscures the left lower chest. The heart is enlarged noting atherosclerotic calcification of the thoracic aorta. There is pulmonary vascular congestion. Airspace opacities are seen bilaterally. There are small pleural effusions with bibasilar consolidation. No pneumothorax is seen. The skeletal structures are osteopenic. The bony thorax is grossly intact. IMPRESSION: 1. Cardiomegaly and cardiac pacemaker with evidence of congestive failure. 2. Bilateral airspace opacities likely represent interstitial edema. Correlate clinically for evidence of a superimposed infectious/inflammatory pneumonitis. 3. Small pleural effusions with bibasilar consolidation. ACT 112: Negative or not required by law. Electronically signed by: Nathan Oseguera M.D. 09/18/2020 9:11 AM Dictated: 09/18/20908Transcribed: 09/18/20908 Patient: XIANG GRANADOS Date: 09/18/20#: [id number]: [id number] RDAcct ID:[id number]: Date: [address] [place] [address] Zip: [place], [place] [address]Kza: 89Location: EDSex: FRoom/Bed:Att Phy:Diagnosis: DIARRHEAPri Phy: Juice Silverman M.D.Service Date: 09/18/20 Phy:Interpreting Phy: Konstantin Still MDAit Phy: Ordering Phy: Demetrio Castaneda DO cc: ~ CT abd pelvis IV con only CLINICAL HISTORY: Abdominal pain and diarrhea COMPARISON STUDY: March 2020 TECHNIQUE: The patient was scanned in a dynamic helical fashion during intravenous administration of 94 cc of Optiray 320 A dose lowering technique was utilized adhering to the principles of ALARA. CT DOSE: 460.46 mGy.cm FINDINGS: Lower chest: The heart is enlarged. There is a pacemaker present. There is aortic valve replacement. There are small bilateral pleural effusions. There is mild right hilar adenopathy. There is chronic basilar septal edema/interstitial thickening.. Liver: The liver has a cirrhotic morphology. There is trace perihepatic ascites. There is mild right hepatic lobe ductal dilatation. There is left hepatic lobe pneumobilia. The portal vein appears patent. No focal hepatic masses are visualized. Gallbladder: Cholelithiasis. Mild gallbladder wall thickening. Mild karen cholecystic edema. Spleen: Normal in size and attenuation. Pancreas: There is a duodenal pancreatic stent. There is no significant pancreatic ductal dilatation. No pancreatic masses are visualized. Adrenal glands: Unremarkable. Kidneys: There is symmetric renal cortical enhancement. The kidneys are normal in size without hydronephrosis. Bowel: There are no transition zones indicate bowel obstruction. There is extensive colonic diverticulosis. There are no acute peridiverticular inflammatory changes. The appendix appears normal. Peritoneum: There is trace perihepatic and perisplenic fluid. Vasculature: The abdominal aorta is normal in course and caliber. Adenopathy: There is a mildly enlarged retrocrural lymph node. There are borderline enlarged retroperitoneal para-aortic lymph nodes. Pelvic viscera: The bladder, and pelvic viscera are unremarkable. Skeletal structures: There is generalized body wall edema. There are old lumbar vertebral body compression deformities IMPRESSION: 1. Cardiomegaly, small bilateral pleural effusions, and persistent interlobular septal edema/interstitial thickening 2. Mild right hepatic lobe ductal dilatation. Left hepatic lobe pneumobilia 3. Cirrhotic morphology the liver 4. Cholelithiasis. Mild gallbladder wall thickening with mild pericholecystic edema 5. Minimal perihepatic and perisplenic fluid 6. Indwelling pancreaticoduodenal stent 7. No evidence of bowel obstruction. No evidence of free air 8. Pandiverticulosis. No evidence of acute diverticulitis. 9. Normal appendix 10. Body wall edema. 11. Mildly enlarged right hilar, retrocrural, and para-aortic lymph nodes ACT 112: Negative or not required by law. Electronically signed by: Konstantin Still M.D. 09/18/2020 9:31 AM Dictated: 09/18/20921Transcribed: 09/18/20921 Discharge Plan Visit Data Chief Complaint: Diarrhea ED Provider: Demetrio Castaneda Discharge Problem: Cholecystitis, Acute hyponatremia, Abdominal pain Patient Disposition: Admitted As Inpatient Condition: Good Discharge Instructions Interventions: ED Discharge Assessment Last Done: 09/18/20 13:15 Discharge Problem: Abdominal pain Qualifiers: Abdominal location: generalized Qualified Code(s): R10.84 - Generalized abdominal pain
[2020-09-18 09:06] LABS: Basophils # (auto) 0.01 K/uL (0-0.2); Basophils % (auto) 0.2 %; Eosinophils # (auto) 0.03 K/uL (0-0.5); Eosinophils % (auto) 0.5 %; Hematocrit (blood only) 34.4 % (37-47); Hemoglobin 10.9 g/dL (12.0-16.0); Immature Granulocytes # (auto) 0.01 K/uL (0.00-0.02); Immature Granulocytes % (auto) 0.2 %; Lymphocytes # (auto) 0.95 K/uL (1.2-3.4); Lymphocytes % (auto) 16.9 %; Mean Corpuscular Hemoglobin 24.2 pg (25-34); Mean Corpuscular Hgb Conc 31.7 g/dL (32-36); Mean Corpuscular Volume 76.4 fL (80-100); Mean Platelet Volume 9.6 fL (7.4-10.4); Monocytes % (auto) 8.9 %; Neutrophils # (auto) 4.11 K/uL (1.4-6.5); Neutrophils % (auto) 73.3 %; Platelet Count 130 K/uL (130-400); RDW Coefficient of Variation 20.6 % (11.5-14.5); RDW Standard Deviation 57.8 fL (36.4-46.3); White Blood Count 5.61 K/uL (4.8-10.8)
--- NOTE | 2020-09-18 09:12 | XRay Report ---
SINGLE VIEW CHEST CLINICAL HISTORY: Dyspnea. FINDINGS: An AP, portable, upright chest radiograph is compared to study dated 05/06/2020 and correla roshan with chest CT dated 03/21/2020. The examination is degraded by portable technique and patient rota tion. The patient is status post midline sternotomy and cardiac valve surgery. A single lead cardiac pacemaker is unchanged in position and partially obscures the left lower chest. The heart is enlarged noting atherosclerotic calcification of the thoracic aorta. There is pulmonary vascular congestion. Airspace opacities are seen bilaterally. There are small pleural effusions with bibasilar consolidati on. No pneumothorax is seen. The skeletal structures are osteopenic. The bony thorax is grossly intac t. IMPRESSION: 1. Cardiomegaly and cardiac pacemaker with evidence of congestive failure. 2. Bilateral airspace opacities likely represent interstitial edema. Correlate clinically for evidenc e of a superimposed infectious/inflammatory pneumonitis. 3. Small pleural effusions with bibasilar consolidation. ACT 112: Negative or not required by law. Electronically signed by: Nathan Oseguera M.D. 09/18/2020 9:11 AM
[2020-09-18 09:14] LABS: iSTAT Creatinine 0.5 mg/dl (0.6-1.3); iSTAT Hemoglobin 13.3 g/dl (12.0-16.0); iSTAT Ionized Calcium 1.19 mmol/l (1.12-1.32)
[2020-09-18] MEDS ORDERED: OPTIRAY 320 100ml IV ONE (09:16)
[2020-09-18 09:18] LABS: INR 2.3 (0.9-1.1); Partial Thromboplastin Ratio 1.3; Partial Thromboplastin Time 35.5 Seconds (21.0-31.0); Prothrombin Time 21.9 Seconds (9.0-12.0)
[2020-09-18 09:24] LABS: Albumin Level 2.9 gm/dl (3.4-5.0); Aspartate Aminotransferase 28 U/L (15-37); BUN Creatinine Ratio 18.7 (10-20); Blood Urea Nitrogen 11 mg/dl (7-18); Calcium 8.9 mg/dl (8.5-10.1); Carbon Dioxide 32 mmol/L (21-32); Chloride 91 mmol/L (98-107); Est GFR (African American) 94.8; Est GFR (Non-African American) 81.8; Glucose 83 mg/dl (70-99); Lipase 95 U/L (73-393); Potassium 3.9 mmol/L (3.5-5.1); Sodium 127 mmol/L (136-145)
[2020-09-18 09:31] LABS: Anisocytosis Present; Spherocytes Occasional
--- NOTE | 2020-09-18 09:32 | CT Scan Report ---
CT abd pelvis IV con only CLINICAL HISTORY: Abdominal pain and diarrhea COMPARISON STUDY: March 2020 TECHNIQUE: The patient was scanned in a dynamic helical fashion during intravenous administration of 94 cc of Optiray 320 A dose lowering technique was utilized adhering to the principles of ALARA. CT DOSE: 460.46 mGy.cm FINDINGS: Lower chest: The heart is enlarged. There is a pacemaker present. There is aortic valve replacement. There are small bilateral pleural effusions. There is mild right hilar adenopathy. There is chronic b asilar septal edema/interstitial thickening.. Liver: The liver has a cirrhotic morphology. There is trace perihepatic ascites. There is mild right hepatic lobe ductal dilatation. There is left hepatic lobe pneumobilia. The portal vein appears paten t. No focal hepatic masses are visualized. Gallbladder: Cholelithiasis. Mild gallbladder wall thickening. Mild pericholecystic edema. Spleen: Normal in size and attenuation. Pancreas: There is a duodenal pancreatic stent. There is no significant pancreatic ductal dilatation. No pancreatic masses are visualized. Adrenal glands: Unremarkable. Kidneys: There is symmetric renal cortical enhancement. The kidneys are normal in size without hydron ephrosis. Bowel: There are no transition zones indicate bowel obstruction. There is extensive colonic diverticu losis. There are no acute peridiverticular inflammatory changes. The appendix appears normal. Peritoneum: There is trace perihepatic and perisplenic fluid. Vasculature: The abdominal aorta is normal in course and caliber. Adenopathy: There is a mildly enlarged retrocrural lymph node. There are borderline enlarged retroper itoneal para-aortic lymph nodes. Pelvic viscera: The bladder, and pelvic viscera are unremarkable. Skeletal structures: There is generalized body wall edema. There are old lumbar vertebral body compre ssion deformities IMPRESSION: 1. Cardiomegaly, small bilateral pleural effusions, and persistent interlobular septal edema/intersti tial thickening 2. Mild right hepatic lobe ductal dilatation. Left hepatic lobe pneumobilia 3. Cirrhotic morphology the liver 4. Cholelithiasis. Mild gallbladder wall thickening with mild pericholecystic edema 5. Minimal perihepatic and perisplenic fluid 6. Indwelling pancreaticoduodenal stent 7. No evidence of bowel obstruction. No evidence of free air 8. Pandiverticulosis. No evidence of acute diverticulitis. 9. Normal appendix 10. Body wall edema. 11. Mildly enlarged right hilar, retrocrural, and para-aortic lymph nodes ACT 112: Negative or not required by law. Electronically signed by: Konstantin Still M.D. 09/18/2020 9:31 AM
[2020-09-18 09:33] LABS: Alanine Aminotransferase 24 U/L (12-78); Albumin Globulin Ratio 0.8 (0.9-2); Alkaline Phosphatase 162 U/L (45-117); Bilirubin,Total 1.1 mg/dl (0.2-1); Globulin 3.8 gm/dl (2.5-4.0); Total Protein 6.7 gm/dl (6.4-8.2); Troponin I 0.049 ng/ml (0-0.045)
[2020-09-18] MEDS ORDERED: PIPERACILLIN/TAZOBACTAM 4.5 GM/120 ML BAG IV ONE (09:56)
[2020-09-18] MEDS ORDERED: PIPERACILL/TAZOBAC CONSULT ACTIVE PRN ×2 (09:56→14:08)
--- NOTE | 2020-09-18 10:57 | History & Physical Report ---
Date of Service September 18, 2020 Assessment & Plan (1) Cholecystitis: Clarisse Mo is an 89-year-old female with a past medical history of chronic diastolic heart failure, hypothyroidism, atrial fibrillation and history of mechanical aortic valve replacement on warfarin, hypertension, chronic elevated troponins, pulmonary hypertension on chronic O2, and choledocholithiasis with past sphincterotomy and EUS guided cholecysto duodenoscopy using lams who presents with several months of burning abdominal pain across her entire abdomen with loose bowel movements worsened more acutely in the last 2 days in which did not respond to outpatient treatment for diarrhea. She has not had any bleeding or melena, and outpatient colonoscopy was on remarkable. ?Acute cholecystitis w/ chronic cholelithiasis -CTabdomen: Mild gallbladder wall thickening, pericholecystic edema noted with additional cholelithiasis. Indwelling cholecysto- duodenal stent present. Mild right hepatic lobe ductal dilation with left hepatic lobe pneumobilia appreciated No leukocytosis, afebrile - GI Consulted, given pt high surgical HIDA - Alkphos 162, AST/ALT wnl, Lipase wnl - Tbili 1.1 - Placed on empiric Zosyn on arrival to ED - Continue anticoagulation at this time until determined if will need procedure (2) Chronic diastolic heart failure: Acute on chronic congestive heart failure, preserved ejection fraction, with right-sided heart failure Follows with [facility] cardiology Last echo 08/13/2019: LVEF 55-60%. Right ventricular moderate dilation, reduced right ventricular function, aortic valve prosthesis in place, mild aortic regurg present, mild tricuspid regurg, severe pulmonary hypertension, pulmonary artery systolic pressure 75, pacer leads noted in right atrium and right ventricle Chest x-ray shows cardiomegaly with bilateral airspace opacities and small pleural effusions with bibasilar consolidation, suggestive of congestive failure EKG on admission shows ventricularly paced rhythm approximately 60 bpm, comparable without acute change compared to 03/21/2020 Continue Lasix 40 mg twice daily Patient clinically volume overloaded on exam and imaging Oral fluids held 2/2 clinical volume overload Continue aspirin 81 mg daily - Historical dry weight appears to be ~76kg, pt currently 77.5 - Strict I&O, + lasix 20mgIV (3) Acute on chronic diastolic (congestive) heart failure: As above (4) Atrial fibrillation: Atrial Fibrillation - Stable, rate conrolled - Continute metoprolol tartrate 100 mg p.o. twice daily INR 2.3, slightly subtherapeutic Continue warfarin 3 mg / 4 mg alternating INR goal 2.53.5 for mechanical AV valve Anticoagulation not yet held, see above notes (5) HTN (hypertension): Hypertension Continue amlodipine 5 mg p.o. every morning Continue losartan 50 mg twice daily Continue metoprolol as above (6) History of heart valve replacement: Mechanical aortic valve replacement Chronic, stable Continue Coumadin INR goal 2.53.5 Coagulation management as noted above, not currently held (7) Elevated troponin: Elevated troponin Troponin 0.049, history of CHF with chronic troponin of approximately 0.03, prior elevated troponins in August Clinically with shortness of breath/chest pain at time of assessment EKG as above TTE pending (8) Adult hypothyroidism: Hypothyroidism Chronic, stable Continue levothyroxine 70 mcg every morning (9) Anemia: Chronic anemia Hemoglobin 10.9, range 9/10 over preceding few months. Last normal 14 approximately 08/15/2019 [place] and hypochromic with MCV 76 History of blood loss anemia with GI bleeding evaluated on hospitalization 04/01/2020 felt to be due to oozing at sphincterotomy and chronic hemmhorhoids - Last colo 9 years ago, pt denies personal or family hx of polyps/colorectal cancer - Iron studies/b12/folate pending Hemmhorhoids with Sacral Ulcer - Wound care - Proctosol cream (10) Hyponatremia: Hyponatremia Chronic, 127 on admit, chronic intermittently [id number] No potassium derangement Suspect 2/2 severe CHF NPO, when diet resumes restriction 1200 cc (11) Anxiety: Anxiety Chronic Continue home baseline dose lorazepam 0.5 mg p.o. twice daily as needed. Versus criteria, recommend addressing chronic benzodiazepine use in elderly patient by outpatient provider (12) Cirrhosis: Liver cirrhosis CTabdomen shows cirrhotic morphology of liver with trace perihepatic ascites and mild right hepatic lobe ductal dilation Portal vein patent, no focal hepatic masses - Suspect 2/2 congestion of cardiac origin - CMP daily (13) DVT prophylaxis: DVT PPX: on warfarin DIET: Npo Dispo: PCU CODE: Full History of Present Illness Chief Complaint: Abd pain, diarrhea Primary Care Provider: Juice Robledo MD Clarisse Mo is an 89-year-old female with a past medical history of chronic diastolic heart failure, hypothyroidism, atrial fibrillation and history of mechanical aortic valve replacement on warfarin, hypertension, chronic elevated troponins, pulmonary hypertension, and choledocholithiasis with past sphincterotomy and cholecysto-duodenal stent placement (EUS guided) who presents with several months of burning abdominal pain across her entire abdomen with loose bowel movements over the last few months in which did not respond to outpatient treatment for diarrhea. She has not had any bleeding or melena, and outpatient colonoscopy was on remarkable. Clarisse reports she has had loose bowels for 'a long time' and bleeding hemorrhoids 'for a very long time.' She reports the last few days she has had worsened diarrhea with sudden urge and incontinence. She notes she has a history of gallstones repeated since she was younger until she had a blockage in her bile duct causing her to pass out and present to the hospital with dehydration. She had an ERCP which removed 'quite a bit of stones' but didn't want to operate due to her age and surgical risk. She reports this 'set her back and I lose my energy and felt terrible.' She had numerous falls requiring her to eventually need a walker and rehab. Starting two days ago and worsening yesterday she developed a strong aching/burning in her stomach. She sat on the commode for 'a long time' and whenever she thought she could ge tup she had pain and had additional diarrhea. She has some burning and pain worsened with meals and sometimes feels food gets stuck in her throat. Sometimes brings back up small amounts of food. Has some pain under her right breast into the back which is new.She endorses chronic chills, but no fevers. No melena, bright red blood. BMs otherwise brownish in color. She has had swelling in her legs and feet increased over two weeks, reports that Dr. Grissom put her on eplerenone in addition to her lasix. She is on lasix 40mg BID. She called Dr. Weems who told her to push the hemorrhoid back into which 'was a job in itself' but after which she felt was successful but noted bright red blood and sore toilet paper after. She called Rito due to continued diarrhea worsening her hermorrhoids who recommended she try Immodium. She reports the immodium did not help and when she woke up this morning she had a stronger burning and acid-reflux character to her stomach pain and her belly was 'so sore' extending into the 'lower intestines' that she called in again and was told to go to the ER due other worsening illness. Reports her most discomfort is the soreness from her hemmorhoids. She wants to go to [facility] for Therapy and rehab after because she feels to weak to be at home currently and has trouble jen gfor herself with the diarrhea and hemorrhoids. Last Colonoscopy: 9 years ago and was told no tto have anotherone after due to concern for injury of the intestines/perforation. No history of polyps or colon cancer. No FHx of colon cancer in first degree relatives. Has NOT taken her medications today,. Reports losartan and amlodipine AM NOT PM. [Clarifies has not been taking PM losartan] No bleeding other than the hemorrhoids. Denies increased shortness of breath, but cannot sleep flat. Uses 2L O2 at night and PRN during the day if she 'overdoes it.' Sleeps propped up in a recliner chair. Has been using oxygen during the day 1-2x daily. No change in preceding few weeks. First COVID shot was Tuesday, was due for her second shot this Tuesday. Social: Lives alone in a home, was with her daughter for a few weeks and is planning on moving to [facility] at some point. Tobacco: none Alcohol: none Recreational: none CODE STATUS: Full Code Allergies Allergy/AdvReac Type Severity Reaction Status Date / Time Sulfa (Sulfonamide Allergy Intermediate HIVES Verified 09/18/20 10:27 Antibiotics) Home Medications Medication Instructions Recorded Confirmed Type furosemide [Lasix] 40 mg PO BID #0 tab 01/17/12 09/18/20 History Centrum Silver Women 1 tab PO DAILY@1200 #0 07/31/13 09/18/20 History aspirin [Aspirin Low Dose] 81 mg PO QAM #0 07/31/13 09/18/20 History levothyroxine 75 mcg PO QAM #0 tab 07/31/13 09/18/20 History warfarin 1.5 mg PO 3XWK #0 tab 07/31/13 09/18/20 History Oxygen Home #0 09/10/13 02/13/19 History lorazepam [Ativan] 0.5 mg PO BID PRN #0 tab 09/10/13 09/18/20 History metoprolol tartrate 100 mg PO BID #0 tab 09/10/13 09/18/20 History amlodipine [Norvasc] 5 mg PO QAM #0 tab 01/16/18 09/18/20 History dorzolamide-timolol 1 drp OPHTHALMIC (EYE) AMPM 08/12/19 09/18/20 History losartan 50 mg PO AMPM 08/12/19 09/18/20 History Rhopressa 1 drp OPB PM PRN 03/30/20 09/18/20 History potassium chloride [Klor-Con M20] 20 meq PO TID #90 tab 04/03/20 09/18/20 Rx calcium carbonate [Calcium 500] 0 mg PO DAILY@1200 09/18/20 09/18/20 History cyclosporine [Restasis] 1 drp OPB PM 09/18/20 09/18/20 History eplerenone 25 mg PO DAILY 09/18/20 09/18/20 History hydrocortisone 1 applic TOPICAL BID PRN 09/18/20 09/18/20 History loperamide [Imodium] 2 mg PO Q4H PRN 09/18/20 09/18/20 History magnesium chloride [Slow-Mag] 0 mg PO TID 09/18/20 09/18/20 History warfarin 3 mg PO 4XWK 09/18/20 09/18/20 History Past Med/Surg History Medical History (Updated 09/18/20 @ 20:55 by Breanna Snowden MD) Adult hypothyroidism Anemia Atrial fibrillation CHF (congestive heart failure) Choledocholithiasis Chronic hyponatremia HTN (hypertension) Pacemaker Pulmonary hypertension severe Thickened endometrium Thyroid disease Vertigo Surgical History (Updated 09/18/20 @ 20:55 by Breanna Snowden MD) Aortic valve replaced H/O mechanical aortic valve replacement History of colonoscopy 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 Status post Mohs surgery Status post placement of cardiac pacemaker Family History Brother Cancer Sister Cancer Social History Smoking Status: Never smoker Tobacco Type: Cigarettes Second Hand Exposure: No; Hx Alcohol Use: No Hx Substance Use: No Preferred Language: Sinhala Communication Ability: Effective [employer] Worker Required: No Beliefs That Will Affect Care: None marital status: / Current Living Situation: Alone How many Children do You have: 2 Other Information That Helps Us Care for You: No Feels Safe at Home: Yes Safety Concerns: Feels Safe At This Time Assistive Devices: Oxygen - at Night and Walker Review of Systems Review of Systems: 10 point RoS negative except as noted in HPI Physical Exam Physical Exam: General: A&Ox3. NAD. Cooperative. HEENT: Atraumatic, normocephalic. Visual acuity intact. PERLAA Pulm: CTAB A&P. -wheezes, -rales, -rhonchi. Symmetrical chest rise. No increase work of breathing. No respiratory distress. Cardiac: soft sytolic murmur with harse ends1 click. Radial pulses intact and symmetrical. JVD ~2cm below mandible. +bilateral lower leg edema,. Abdominal: +TTP at RUQ, +[place]. Abd soft, no rebound. BS increased. : External hemmorhoids appreciated on exam. ~.7mm sacral ulcer present. Ext: Bilateral lower leg edema. Sensation to soft touch in hands and feet intact. Results & Data Results & Data ([facility]) Vital Signs (Past 12 Hours) Vital Signs Temp Pulse Resp BP Pulse Ox 09/18/20 09:02 96 09/18/20 08:26 37.1 C 71 17 137/63 89 L Laboratory Results 09/18/20 09/18/20 09/18/20 Range/Units 16:20 15:49 14:17 WBC (4.8-10.8) K/uL RBC (4.2-5.4) M/uL Hgb (12.0-16.0) g/dL POC Hgb (12.0-16.0) g/dl Hct (37-47) % POC Hct (37-47) % MCV (80-100) fL MCH (25-34) pg MCHC (32-36) g/dL RDW Std Deviation (36.4-46.3) fL RDW Coeff of Sia (11.5-14.5) % Plt Count (130-400) K/uL MPV (7.4-10.4) fL Immature Gran % (Auto) % Neut % (Auto) % Lymph % (Auto) % [place] % (Auto) % Eos % (Auto) % Baso % (Auto) % Neut # (Auto) (1.4-6.5) K/uL Lymph # (Auto) (1.2-3.4) K/uL [place] # (Auto) (0.11-0.59) K/uL Eos # (Auto) (0-0.5) K/uL Baso # (Auto) (0-0.2) K/uL Immature Gran # (Auto) (0.00-0.02) K/uL Anisocytosis Spherocytes PT (9.0-12.0) Seconds INR (0.9-1.1) APTT (21.0-31.0) Seconds PTT Ratio POC Sodium (135-144) mmol/L Sodium (136-145) mmol/L POC Potassium (3.3-5.0) mmol/L Potassium (3.5-5.1) mmol/L POC Chloride (101-112) mmol/L Chloride (98-107) mmol/L Carbon Dioxide (21-32) mmol/L POC Total CO2 (24-31) mmol/L Anion Gap (3-11) POC Anion Gap (16-25) mmol/L POC BUN (7-18) mg/dl BUN (7-18) mg/dl Creatinine (0.6-1.2) mg/dl POC Creatinine (0.6-1.3) mg/dl Est Cr Clr Drug Dosing Est GFR ( Amer) Est GFR (Non-Af Amer) BUN/Creatinine Ratio (10-20) Glucose (70-99) mg/dl POC Glucose (other) (70-99) mg/dl Calcium (8.5-10.1) mg/dl POC Ioniz Calcium Robert (1.12-1.32) mmol/l Iron (35-150) mcg/dl TIBC (250-450) mcg/dl Transferrin (200-360) mg/dl Transferrin % Sat (15-50) % Ferritin (8-388) ng/ml Total Bilirubin (0.2-1) mg/dl AST (15-37) U/L ALT (12-78) U/L Alkaline Phosphatase (45-117) U/L Troponin I 0.046 H* (0-0.045) ng/ml Total Protein (6.4-8.2) gm/dl Albumin (3.4-5.0) gm/dl Globulin (2.5-4.0) gm/dl Albumin/Globulin Ratio (0.9-2) Lipase (73-393) U/L Vitamin B12 1129 H (193-986) pg/ml Folate > 20.00 (>5.38) ng/ml Urine Color Yellow Urine Appearance Turbid A (Clear) Urine pH 7.5 (4.5-7.5) Ur Specific Fiatt 1.042 H (1.000-1.030) Urine Protein Negative (Negative) Urine Glucose (UA) Negative (Negative) Urine Ketones Negative (Negative) Urine Blood Negative (Negative) Urine Nitrite Negative (Negative) Urine Bilirubin Negative (Negative) Urine Urobilinogen Negative (Negative) Ur Leukocyte Esterase Trace H (Negative) Urine WBC (Auto) 1-5 (0-5) /hpf Urine RBC (Auto) 0-4 (0-4) /hpf U Hyaline Cast (Auto) 1-5 (0-5) /lpf U Epithel Cells (Auto) 20-30 H (0-5) /lpf Urine Bacteria (Auto) Negative (Negative) COVID-19 Eval Order SARS-CoV-2, RNA, NAAT (NEGATIVE) 09/18/20 09/18/20 09/18/20 Range/Units 14:17 10:20 10:20 WBC (4.8-10.8) K/uL RBC (4.2-5.4) M/uL Hgb (12.0-16.0) g/dL POC Hgb (12.0-16.0) g/dl Hct (37-47) % POC Hct (37-47) % MCV (80-100) fL MCH (25-34) pg MCHC (32-36) g/dL RDW Std Deviation (36.4-46.3) fL RDW Coeff of Sia (11.5-14.5) % Plt Count (130-400) K/uL MPV (7.4-10.4) fL Immature Gran % (Auto) % Neut % (Auto) % Lymph % (Auto) % [place] % (Auto) % Eos % (Auto) % Baso % (Auto) % Neut # (Auto) (1.4-6.5) K/uL Lymph # (Auto) (1.2-3.4) K/uL [place] # (Auto) (0.11-0.59) K/uL Eos # (Auto) (0-0.5) K/uL Baso # (Auto) (0-0.2) K/uL Immature Gran # (Auto) (0.00-0.02) K/uL Anisocytosis Spherocytes PT (9.0-12.0) Seconds INR (0.9-1.1) APTT (21.0-31.0) Seconds PTT Ratio POC Sodium (135-144) mmol/L Sodium (136-145) mmol/L POC Potassium (3.3-5.0) mmol/L Potassium (3.5-5.1) mmol/L POC Chloride (101-112) mmol/L Chloride (98-107) mmol/L Carbon Dioxide (21-32) mmol/L POC Total CO2 (24-31) mmol/L Anion Gap (3-11) POC Anion Gap (16-25) mmol/L POC BUN (7-18) mg/dl BUN (7-18) mg/dl Creatinine (0.6-1.2) mg/dl POC Creatinine (0.6-1.3) mg/dl Est Cr Clr Drug Dosing Est GFR ( Amer) Est GFR (Non-Af Amer) BUN/Creatinine Ratio (10-20) Glucose (70-99) mg/dl POC Glucose (other) (70-99) mg/dl Calcium (8.5-10.1) mg/dl POC Ioniz Calcium Robert (1.12-1.32) mmol/l Iron 31 L (35-150) mcg/dl TIBC 430 (250-450) mcg/dl Transferrin 331 (200-360) mg/dl Transferrin % Sat 7 L (15-50) % Ferritin 57.3 (8-388) ng/ml Total Bilirubin (0.2-1) mg/dl AST (15-37) U/L ALT (12-78) U/L Alkaline Phosphatase (45-117) U/L Troponin I (0-0.045) ng/ml Total Protein (6.4-8.2) gm/dl Albumin (3.4-5.0) gm/dl Globulin (2.5-4.0) gm/dl Albumin/Globulin Ratio (0.9-2) Lipase (73-393) U/L Vitamin B12 (193-986) pg/ml Folate (>5.38) ng/ml Urine Color Urine Appearance (Clear) Urine pH (4.5-7.5) Ur Specific Fiatt (1.000-1.030) Urine Protein (Negative) Urine Glucose (UA) (Negative) Urine Ketones (Negative) Urine Blood (Negative) Urine Nitrite (Negative) Urine Bilirubin (Negative) Urine Urobilinogen (Negative) Ur Leukocyte Esterase (Negative) Urine WBC (Auto) (0-5) /hpf Urine RBC (Auto) (0-4) /hpf U Hyaline Cast (Auto) (0-5) /lpf U Epithel Cells (Auto) (0-5) /lpf Urine Bacteria (Auto) (Negative) [facility], [facility], NAAT NEGATIVE (NEGATIVE) 09/18/20 09/18/20 09/18/20 Range/Units 09:01 08:55 08:55 WBC (4.8-10.8) K/uL RBC (4.2-5.4) M/uL Hgb (12.0-16.0) g/dL POC Hgb 13.3 (12.0-16.0) g/dl Hct (37-47) % POC Hct 39 (37-47) % MCV (80-100) fL MCH (25-34) pg MCHC (32-36) g/dL RDW Std Deviation (36.4-46.3) fL RDW Coeff of Sia (11.5-14.5) % Plt Count (130-400) K/uL MPV (7.4-10.4) fL Immature Gran % (Auto) % Neut % (Auto) % Lymph % (Auto) % [place] % (Auto) % Eos % (Auto) % Baso % (Auto) % Neut # (Auto) (1.4-6.5) K/uL Lymph # (Auto) (1.2-3.4) K/uL [place] # (Auto) (0.11-0.59) K/uL Eos # (Auto) (0-0.5) K/uL Baso # (Auto) (0-0.2) K/uL Immature Gran # (Auto) (0.00-0.02) K/uL Anisocytosis Spherocytes PT 21.9 H (9.0-12.0) Seconds INR 2.3 H (0.9-1.1) APTT 35.5 H (21.0-31.0) Seconds PTT Ratio 1.3 POC Sodium 126 L (135-144) mmol/L Sodium 127 L (136-145) mmol/L POC Potassium 4.0 (3.3-5.0) mmol/L Potassium 3.9 (3.5-5.1) mmol/L POC Chloride 87 L (101-112) mmol/L Chloride 91 L (98-107) mmol/L Carbon Dioxide 32 (21-32) mmol/L POC Total CO2 31 (24-31) mmol/L Anion Gap 4.0 (3-11) POC Anion Gap 13.0 L (16-25) mmol/L POC BUN 11 (7-18) mg/dl BUN 11 (7-18) mg/dl Creatinine 0.59 L (0.6-1.2) mg/dl POC Creatinine 0.5 L (0.6-1.3) mg/dl Est Cr Clr Drug Dosing Not Reportable Est GFR ( Amer) 94.8 Est GFR (Non-Af Amer) 81.8 BUN/Creatinine Ratio 18.7 (10-20) Glucose 83 (70-99) mg/dl POC Glucose (other) 89 (70-99) mg/dl Calcium 8.9 (8.5-10.1) mg/dl POC Ioniz Calcium Robert 1.19 (1.12-1.32) mmol/l Iron (35-150) mcg/dl TIBC (250-450) mcg/dl Transferrin (200-360) mg/dl Transferrin % Sat (15-50) % Ferritin (8-388) ng/ml Total Bilirubin 1.1 H (0.2-1) mg/dl AST 28 (15-37) U/L ALT 24 (12-78) U/L Alkaline Phosphatase 162 H (45-117) U/L Troponin I 0.049 H* (0-0.045) ng/ml Total Protein 6.7 (6.4-8.2) gm/dl Albumin 2.9 L (3.4-5.0) gm/dl Globulin 3.8 (2.5-4.0) gm/dl Albumin/Globulin Ratio 0.8 L (0.9-2) Lipase 95 (73-393) U/L Vitamin B12 (193-986) pg/ml Folate (>5.38) ng/ml Urine Color Urine Appearance (Clear) Urine pH (4.5-7.5) Ur Specific [place] (1.000-1.030) Urine Protein (Negative) Urine Glucose (UA) (Negative) Urine Ketones (Negative) Urine Blood (Negative) Urine Nitrite (Negative) Urine Bilirubin (Negative) Urine Urobilinogen (Negative) Ur Leukocyte Esterase (Negative) Urine WBC (Auto) (0-5) /hpf Urine RBC (Auto) (0-4) /hpf U Hyaline Cast (Auto) (0-5) /lpf U Epithel Cells (Auto) (0-5) /lpf Urine Bacteria (Auto) (Negative) COVID-19 Eval Order SARS-CoV-2, RNA, NAAT (NEGATIVE) 09/18/20 Range/Units 08:55 WBC 5.61 (4.8-10.8) K/uL RBC 4.50 (4.2-5.4) M/uL Hgb 10.9 L (12.0-16.0) g/dL POC Hgb (12.0-16.0) g/dl Hct 34.4 L (37-47) % POC Hct (37-47) % MCV 76.4 L (80-100) fL MCH 24.2 L (25-34) pg MCHC 31.7 L (32-36) g/dL RDW Std Deviation 57.8 H (36.4-46.3) fL RDW Coeff of Sia 20.6 H (11.5-14.5) % Plt Count 130 (130-400) K/uL MPV 9.6 (7.4-10.4) fL Immature Gran % (Auto) 0.2 % Neut % (Auto) 73.3 % Lymph % (Auto) 16.9 % [place] % (Auto) 8.9 % Eos % (Auto) 0.5 % Baso % (Auto) 0.2 % Neut # (Auto) 4.11 (1.4-6.5) K/uL Lymph # (Auto) 0.95 L (1.2-3.4) K/uL [place] # (Auto) 0.50 (0.11-0.59) K/uL Eos # (Auto) 0.03 (0-0.5) K/uL Baso # (Auto) 0.01 (0-0.2) K/uL Immature Gran # (Auto) 0.01 (0.00-0.02) K/uL Anisocytosis Present Spherocytes Occasional PT (9.0-12.0) Seconds INR (0.9-1.1) APTT (21.0-31.0) Seconds PTT Ratio POC Sodium (135-144) mmol/L Sodium (136-145) mmol/L POC Potassium (3.3-5.0) mmol/L Potassium (3.5-5.1) mmol/L POC Chloride (101-112) mmol/L Chloride (98-107) mmol/L Carbon Dioxide (21-32) mmol/L POC Total CO2 (24-31) mmol/L Anion Gap (3-11) POC Anion Gap (16-25) mmol/L POC BUN (7-18) mg/dl BUN (7-18) mg/dl Creatinine (0.6-1.2) mg/dl POC Creatinine (0.6-1.3) mg/dl Est Cr Clr Drug Dosing Est GFR ( Amer) Est GFR (Non-Af Amer) BUN/Creatinine Ratio (10-20) Glucose (70-99) mg/dl POC Glucose (other) (70-99) mg/dl Calcium (8.5-10.1) mg/dl POC Ioniz Calcium Robert (1.12-1.32) mmol/l Iron (35-150) mcg/dl TIBC (250-450) mcg/dl Transferrin (200-360) mg/dl Transferrin % Sat (15-50) % Ferritin (8-388) ng/ml Total Bilirubin (0.2-1) mg/dl AST (15-37) U/L ALT (12-78) U/L Alkaline Phosphatase (45-117) U/L Troponin I (0-0.045) ng/ml Total Protein (6.4-8.2) gm/dl Albumin (3.4-5.0) gm/dl Globulin (2.5-4.0) gm/dl Albumin/Globulin Ratio (0.9-2) Lipase (73-393) U/L Vitamin B12 (193-986) pg/ml Folate (>5.38) ng/ml Urine Color Urine Appearance (Clear) Urine pH (4.5-7.5) Ur Specific [place]att (1.000-1.030) Urine Protein (Negative) Urine Glucose (UA) (Negative) Urine Ketones (Negative) Urine Blood (Negative) Urine Nitrite (Negative) Urine Bilirubin (Negative) Urine Urobilinogen (Negative) Ur Leukocyte Esterase (Negative) Urine WBC (Auto) (0-5) /hpf Urine RBC (Auto) (0-4) /hpf U Hyaline Cast (Auto) (0-5) /lpf U Epithel Cells (Auto) (0-5) /lpf Urine Bacteria (Auto) (Negative) COVID-19 Eval Order SARS-CoV-2, RNA, NAAT (NEGATIVE) Diagnostic Findings SINGLE VIEW CHEST CLINICAL HISTORY: Dyspnea. FINDINGS: An AP, portable, upright chest radiograph is compared to study dated 05/06/2020 and correlated with chest CT dated 03/21/2020. The examination is degraded by portable technique and patient rotation. The patient is status post midline sternotomy and cardiac valve surgery. A single lead cardiac pacemaker is unchanged in position and partially obscures the left lower chest. The heart is enlarged noting atherosclerotic calcification of the thoracic aorta. There is pulmonary vascular congestion. Airspace opacities are seen bilaterally. There are small pleural effusions with bibasilar consolidation. No pneumothorax is seen. The skeletal structures are osteopenic. The bony thorax is grossly intact. IMPRESSION: 1. Cardiomegaly and cardiac pacemaker with evidence of congestive failure. 2. Bilateral airspace opacities likely represent interstitial edema. Correlate clinically for evidence of a superimposed infectious/inflammatory pneumonitis. 3. Small pleural effusions with bibasilar consolidation. ADDENDUM Addendum: Correction to original report. There is no pancreatic stent present. The patient had a gallbladder duodenal stent marsupialization which appears to have migrated into the duodenum. 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 Electronically signed by: Konstantin Still M.D. 09/18/2020 4:[address] abd pelvis IV con only CLINICAL HISTORY: Abdominal pain and diarrhea COMPARISON STUDY: March 2020 TECHNIQUE: The patient was scanned in a dynamic helical fashion during intravenous administration of 94 cc of Optiray 320 A dose lowering technique was utilized adhering to the principles of ALARA. CT DOSE: 460.46 mGy.cm FINDINGS: Lower chest: The heart is enlarged. There is a pacemaker present. There is aortic valve replacement. There are small bilateral pleural effusions. There is mild right hilar adenopathy. There is chronic basilar septal edema/interstitial thickening.. Liver: The liver has a cirrhotic morphology. There is trace perihepatic ascites. There is mild right hepatic lobe ductal dilatation. There is left hepatic lobe pneumobilia. The portal vein appears patent. No focal hepatic masses are visualized. Gallbladder: Cholelithiasis. Mild gallbladder wall thickening. Mild pericholecystic edema. Spleen: Normal in size and attenuation. Pancreas: There is a duodenal pancreatic stent. There is no significant pancreatic ductal dilatation. No pancreatic masses are visualized. Adrenal glands: Unremarkable. Kidneys: There is symmetric renal cortical enhancement. The kidneys are normal in size without hydronephrosis. Bowel: There are no transition zones indicate bowel obstruction. There is extensive colonic diverticulosis. There are no acute peridiverticular inflammatory changes. The appendix appears normal. Peritoneum: There is trace perihepatic and perisplenic fluid. Vasculature: The abdominal aorta is normal in course and caliber. Adenopathy: There is a mildly enlarged retrocrural lymph node. There are borderline enlarged retroperitoneal para-aortic lymph nodes. Pelvic viscera: The bladder, and pelvic viscera are unremarkable. Skeletal structures: There is generalized body wall edema. There are old lumbar vertebral body compression deformities IMPRESSION: 1. Cardiomegaly, small bilateral pleural effusions, and persistent interlobular septal edema/interstitial thickening 2. Mild right hepatic lobe ductal dilatation. Left hepatic lobe pneumobilia 3. Cirrhotic morphology the liver 4. Cholelithiasis. Mild gallbladder wall thickening with mild pericholecystic edema 5. Minimal perihepatic and perisplenic fluid 6. Indwelling pancreaticoduodenal stent 7. No evidence of bowel obstruction. No evidence of free air 8. Pandiverticulosis. No evidence of acute diverticulitis. 9. Normal appendix 10. Body wall edema. 11. Mildly enlarged right hilar, retrocrural, and para-aortic lymph nodes ECG Additional Comments: ECG with ventricularly paced rhythm Supervising Physician Co-Signing Physician Notes I personally examined the patient and verified all mendoza points of history and exam, discussed case, and agree with decision making with Dr. Bean with the following additions/exceptions: This patient is an 89-year-old female with a complex history of mechanical AVR on Coumadin, atrial fibrillation, pulmonary hypertension and right-sided heart failure, chronic diastolic CHF, PPM, hypothyroidism, HTN, and choledocholithiasis requiring ERCP and cholecysto-duodenal stent placement in 03/2020 who presents to the ER with 2 days of acute worsening of chronic burning abdominal pain and loose stools. She reports loose stools and diffuse burning abdominal pain for several months but in the last 2 days, the pain became much worse and was located in the epigastric and right upper quadrant region. Her stools have become so frequent that she is having fecal incontinence all over her house and her clothing, making it difficult for her to keep her self clean at home. She denies nausea or vomiting but does have low appetite. I discussed her care with the gastroenterology nurse practitioner as well as the general surgeon today. After GI attending reviewed the imaging, it was determined that her stent had migrated out of the gallbladder into the duodenum and this was likely the source of her pain. Decision was made to reverse her warfarin with vitamin K and plan to proceed with ERCP tomorrow to potentially remove any stones and widen the stent. General surgery also would not be able to perform a cholecystectomy as the stent cannot be removed and cholecystectomy cannot be performed with a stent in place due to anatomic reasons-general surgery consultation was then canceled as was the HIDA scan which GI felt was unnecessary. History and ROS reviewed as above Vitals reviewed Gen: AAOx3, NAD, chronically ill-appearing HEENT: Anicteric sclerae, EOMI CV: RRR crisp S2, 2/6 systolic murmur at the RUSB Pulm: Bibasilar crackles Abd: Positive bowel sounds, soft, positive tenderness to palpation especially in the right upper quadrant and epigastric region without guarding or rebound tenderness Ext: 2+ pitting edema of the lower extremities to the knees bilaterally Skin: Chronic venous stasis changes of the legs Neuro: Full strength throughout Laboratory values reviewed Imaging reviewed ECG reviewed 89-year-old female here with history as above, here with suspected acute cholecystitis and with migrated cholecystoduodenal stent causing pain For diarrhea-check C. difficile and stool studies Added on Pepcid Reverse warfarin with vitamin K-checking INR this evening and will start heparin drip if INR less than 1.5-Heparin drip can be held prior to procedure tomorrow at 1330 -Hold home aspirin N.p.o. after midnight Continue antibiotics but changed from Zosyn to Cipro/Flagyl as per GI recommendation Proctosol as needed for hemorrhoid pain Wound care consultation for sacral ulcer IV Lasix as needed for volume overload Appreciate cardiology consultation for preoperative evaluation Appreciate GI consultation and management Resident Activity Tracking Resident Involvement: Resident Care Provided Care Provided: Adult Hospital Medicine (1) Atrial fibrillation Atrial fibrillation type: unspecified Qualified Code(s): I48.91 - Unspecified atrial fibrillation (2) HTN (hypertension) Hypertension type: essential hypertension Qualified Code(s): I10 - Essential (primary) hypertension
[2020-09-18] MEDS ORDERED: LORazepam 0.5 MG TAB PO PRN (14:08)
[2020-09-18] MEDS ORDERED: FUROSEMIDE 40 MG/4 ML VIAL IV STA (14:08)
--- NOTE | 2020-09-18 14:13 | Gastrointestinal Consultation ---
Date of Consultation September 18, 2020 Assessment & Plan (1) Abdominal pain: (2) Diarrhea: Pt is a 89 y/o female w diarrhea, epigastric/RUQ abd pain symptoms. Hx of choledocholithiasis s/p removal and biliary sphincterectomy in 03/2020. She then had cholecystoduodenostomy w Axios stent placement 05/2020. CT today showed stent appears in place, LFTs w/o significant rise. She does have cholelithiasis w possible signs of cholecystitis. - Stool cx and Cdiff to r/o infections - Surgery consulted - Trend LFTs - Antibx coverage - Will review CT images with Dr. Mendoza to see if need any biliary intervention or stent clean out if clogged Supervising Physician Co-Signing Physician Notes I performed a history and physical examination of the patient today, including specifically on physical exam - soft abdomen. I have discussed the patient's management with the advanced practitioner. Please refer to the nurse practitioner's note for the documented findings and plan of care. I reviewed the CT scan images with radiology and it seems the large Gallstones may have pushed the Axios stent slightly out of the gallbladder. Plan for EGD tomorrow to dilate the tract and remove all the stones from the gallbladder. Correct the INR overnight and can use Heparin drip if needed. History of Present Illness Reason for Consultation: RUQ abd pain, ? cholecystitis Requesting Physician: Dr. Breanna Snowden Attending Physician: Dr. Arnaldo Samuel History of Present Illness Pt is a 89 y/o female who presented to ED w c/o diarrhea, hemorrhoidal bleeding and RUQ abd pain, nausea w/o vomiting started 2 days ago. Lives alone She has hx of cholelithiasis, choledocholithiasis s/p ERCP w choledocholithiasis removal and biliary sphincterectomy 03/2020. Due to her multiple medical comorbidities, she's a poor surgical candidate for cholecystectomy. She underwent cholecystoduodenostomy w Axios stent placement then on 05/14/2020. Labs today w/o signs of leukocytosis, LFTs: Tbili 1.1, AST 28, ALT 24, Alk phos 162, Lipase 95. COVID [address] abd/pelvis w IV contrast: 1. Cardiomegaly, small bilateral pleural effusions, and persistent interlobular septal edema/interstitial thickening 2. Mild right hepatic lobe ductal dilatation. Left hepatic lobe pneumobilia 3. Cirrhotic morphology the liver 4. Cholelithiasis. Mild gallbladder wall thickening with mild pericholecystic edema 5. Minimal perihepatic and perisplenic fluid 6. Indwelling pancreaticoduodenal stent 7. No evidence of bowel obstruction. No evidence of free air 8. Pandiverticulosis. No evidence of acute diverticulitis. 9. Normal appendix 10. Body wall edema. 11. Mildly enlarged right hilar, retrocrural, and para-aortic lymph nodes Allergies Allergy/AdvReac Type Severity Reaction Status Date / Time Sulfa (Sulfonamide Allergy Intermediate HIVES Verified 09/18/20 10:27 Antibiotics) Home Medications Medication Instructions Recorded Confirmed Type furosemide [Lasix] 40 mg PO BID #0 tab 01/17/12 09/18/20 History Centrum Silver Women 1 tab PO DAILY@1200 #0 07/31/13 09/18/20 History aspirin [Aspirin Low Dose] 81 mg PO QAM #0 07/31/13 09/18/20 History levothyroxine 75 mcg PO QAM #0 tab 07/31/13 09/18/20 History warfarin 1.5 mg PO 3XWK #0 tab 07/31/13 09/18/20 History Oxygen Home #0 09/10/13 02/13/19 History lorazepam [Ativan] 0.5 mg PO BID PRN #0 tab 09/10/13 09/18/20 History metoprolol tartrate 100 mg PO BID #0 tab 09/10/13 09/18/20 History amlodipine [Norvasc] 5 mg PO QAM #0 tab 01/16/18 09/18/20 History dorzolamide-timolol 1 drp OPHTHALMIC (EYE) AMPM 08/12/19 09/18/20 History losartan 50 mg PO AMPM 08/12/19 09/18/20 History Rhopressa 1 drp OPB PM PRN 03/30/20 09/18/20 History potassium chloride [Klor-Con M20] 20 meq PO TID #90 tab 04/03/20 09/18/20 Rx calcium carbonate [Calcium 500] 0 mg PO DAILY@1200 09/18/20 09/18/20 History cyclosporine [Restasis] 1 drp OPB PM 09/18/20 09/18/20 History eplerenone 25 mg PO DAILY 09/18/20 09/18/20 History hydrocortisone 1 applic TOPICAL BID PRN 09/18/20 09/18/20 History loperamide [Imodium] 2 mg PO Q4H PRN 09/18/20 09/18/20 History magnesium chloride [Slow-Mag] 0 mg PO TID 09/18/20 09/18/20 History warfarin 3 mg PO 4XWK 09/18/20 09/18/20 History Patient History Medical History Adult hypothyroidism Atrial fibrillation CHF (congestive heart failure) Choledocholithiasis Chronic hyponatremia HTN (hypertension) Pacemaker Pulmonary hypertension severe Thickened endometrium Thyroid disease Surgical History Aortic valve replaced H/O mechanical aortic valve replacement History of colonoscopy 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 Status post Mohs surgery Family History Brother Cancer Sister Cancer Social History Smoking Status: Never smoker Tobacco Type: Cigarettes Second Hand Exposure: No; Hx Alcohol Use: No Hx Substance Use: No Preferred Language: Faroese Communication Ability: Effective Records Section Supervisor Required: No Beliefs That Will Affect Care: None marital status: / Current Living Situation: Alone How many Children do You have: 2 Other Information That Helps Us Care for You: No Feels Safe at Home: Yes Safety Concerns: Feels Safe At This Time Assistive Devices: Oxygen - at Night and Walker Review of Systems Review of Systems: All systems reviewed & are unremarkable except as noted in HPI & below Physical Exam Constitutional: WD/WN, vitals as above well groomed, cooperative and comfortable Eyes: PERRL, conjunctivae normal, anicteric sclerae ENMT: external ear and nose normal, oropharynx normal Respiratory: no respiratory distress and does not use accessory muscles Auscultation: + diminished lung sounds (at bases) Cardiovascular: RRR, no murmur, no edema Gastrointestinal (Abdomen): Inspection/Auscultation: + hypoactive bowel sounds Percussion/Palpation: + abdomen tender (epigastric, RUQ ) and abdomen soft Skin: no rashes, warm and dry no jaundice Psychiatric: A+Ox3, euthymic affect Lymphatic: no lymphedema Results & Data ([facility]) Vital Signs (Past 12 Hours) Vital Signs Temp Pulse Resp BP Pulse Ox 09/18/20 13:00 62 19 140/57 L 96 09/18/20 12:30 60 20 137/50 L 94 09/18/20 12:00 60 16 112/44 L 95 09/18/20 11:30 62 20 139/57 L 96 09/18/20 11:00 60 22 139/63 95 09/18/20 10:31 60 21 131/58 L 96 09/18/20 10:00 60 16 151/65 H 99 09/18/20 09:30 60 16 131/53 L 99 09/18/20 09:02 96 09/18/20 09:00 60 16 125/49 L 95 09/18/20 08:52 61 17 127/50 L 96 09/18/20 08:26 37.1 C 71 17 137/63 89 L 09/18/20 08:24 71 18 137/63 98
[2020-09-18] MEDS ORDERED: HYDROCORTISONE HC 2.5% CRM 30GM TUBE EXT PRN (14:30)
[2020-09-18] MEDS ORDERED: ASPIRIN 81 MG ECTAB PO SCH (14:30)
[2020-09-18 15:02] LABS: Ferritin 57.3 ng/ml (8-388)
[2020-09-18 15:41] LABS: Folate (Folic Acid) > 20.00 ng/ml (>5.38); Vitamin B12 1129 pg/ml (193-986)
--- NOTE | 2020-09-18 15:44 | Cardiology Consultation ---
Date of Consultation September 18, 2020 Assessment & Plan (1) Abdominal pain: Patient is a very complex 89-year-old frail female with multiple underlying cardiac issues as outlined below. She presents now with abdominal pain and diarrhea possible displaced Axios stent placed for cholelithiasis May 2020 and prohibitively high surgical risk . Underlying cardiac issues include chronic valvular heart disease status post mechanical aortic valve replacement, diastolic heart failure, right heart failure with severe pulmonary hypertension possible underlying interstitial lung disease O2 dependent. Patient presents now with abdominal pain diarrhea and possible displaced duodenal stent. Patient remains not a candidate for cholecystectomy Plan: Discussed with gastroenterology who will will attempt to reposition cholecystoduodenal stent pending reversal of anticoagulation. Would continue prehospital medications. Agree with IV dose of furosemide due to edema and increased interstitial markings though suspect chronic fibrotic component as well. Will hold a.m. dose of furosemide Will need to follow renal function, hyponatremia Maintain oxygen supplementation Would treat underlying iron deficiency anemia Echo has been ordered we will review (2) Diarrhea: (3) Anemia: (4) Acute on chronic diastolic (congestive) heart failure: (5) Hyponatremia: (6) Atrial fibrillation: Patient with indwelling single-chamber pacemaker normal device function last interrogation June 2020, 97% ventricular battery life of greater than 3-year (7) H/O mechanical aortic valve replacement: (8) Pulmonary hypertension: As noted chest x-ray and prior multiple CTs demonstrate chronic interstitial changes consistent with intraparenchymal disease and likely manasa vated left heart pressure with resultant severe pulmonary pretension History of Present Illness Reason for Consultation: Abdominal pain diarrhea, preoperative risk evaluation Requesting Physician: Dory Hoskins Attending Physician: Breanna Snowden MD History of Present Illness Patient is a very complex 89-year-old female whose ongoing issues include 1. Prior complex valve surgery 2011 with ascending aortic root repair, aortic valve replacement with mechanical prosthesis mitral valve repair, tricuspid valve repair and annuloplasty and ASD closure 2. Chronic atrial fibrillation with tachybradycardia syndrome status post single-chamber pacemaker insertion, most recent generator exchange 11/29/2018 [employer] Terrie XT SR 3. Chronic diastolic/right heart failure with chronic edema, 4. Pulmonary hypertension, severe with O2 dependency, suspect component of interstitial lung disease in addition to left-sided cardiac disease 5. Longstanding hypertension 6. Chronic cholelithiasis status post cholecystoduodenostomy with Axios stent 05/14/2020 due to prohibitive surgical risk 7. Chronic blood loss anemia, iron deficient Patient presents this admission with ongoing complaints of chronic loose stools diarrhea and most recent difficulties of worsening back and flank pain as well as abdominal discomfort. Treat with outpatient regimen resulted in constipation and increased hemorrhoidal bleeding. No cardiac complaints though patient chronically aware of lower extremity edema. Was recently placed on eplerenone but no visualized change per patient. No overt fevers but chills commonly. Weight stable to slightly up. No dizziness or lightheadedness no irritation over pacemaker site. Appetite fair. Allergies Allergy/AdvReac Type Severity Reaction Status Date / Time Sulfa (Sulfonamide Allergy Intermediate HIVES Verified 09/18/20 10:27 Antibiotics) Home Medications Medication Instructions Recorded Confirmed Type furosemide [Lasix] 40 mg PO BID #0 tab 01/17/12 09/18/20 History Centrum Silver Women 1 tab PO DAILY@1200 #0 07/31/13 09/18/20 History aspirin [Aspirin Low Dose] 81 mg PO QAM #0 07/31/13 09/18/20 History levothyroxine 75 mcg PO QAM #0 tab 07/31/13 09/18/20 History warfarin 1.5 mg PO 3XWK #0 tab 07/31/13 09/18/20 History Oxygen Home #0 09/10/13 02/13/19 History lorazepam [Ativan] 0.5 mg PO BID PRN #0 tab 09/10/13 09/18/20 History metoprolol tartrate 100 mg PO BID #0 tab 09/10/13 09/18/20 History amlodipine [Norvasc] 5 mg PO QAM #0 tab 01/16/18 09/18/20 History dorzolamide-timolol 1 drp OPHTHALMIC (EYE) AMPM 08/12/19 09/18/20 History losartan 50 mg PO AMPM 08/12/19 09/18/20 History Rhopressa 1 drp OPB PM PRN 03/30/20 09/18/20 History potassium chloride [Klor-Con M20] 20 meq PO TID #90 tab 04/03/20 09/18/20 Rx calcium carbonate [Calcium 500] 0 mg PO DAILY@1200 09/18/20 09/18/20 History cyclosporine [Restasis] 1 drp OPB PM 09/18/20 09/18/20 History eplerenone 25 mg PO DAILY 09/18/20 09/18/20 History hydrocortisone 1 applic TOPICAL BID PRN 09/18/20 09/18/20 History loperamide [Imodium] 2 mg PO Q4H PRN 09/18/20 09/18/20 History magnesium chloride [Slow-Mag] 0 mg PO TID 09/18/20 09/18/20 History warfarin 3 mg PO 4XWK 09/18/20 09/18/20 History Patient History Medical History Adult hypothyroidism Atrial fibrillation CHF (congestive heart failure) Choledocholithiasis Chronic hyponatremia HTN (hypertension) Pacemaker Pulmonary hypertension severe Thickened endometrium Thyroid disease Surgical History Aortic valve replaced H/O mechanical aortic valve replacement History of colonoscopy 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 Status post Mohs surgery Family History Brother Cancer Sister Cancer Social History Smoking Status: Never smoker Tobacco Type: Cigarettes Second Hand Exposure: No; Hx Alcohol Use: No Hx Substance Use: No Preferred Language: Welsh Communication Ability: Effective Automatic Tire Tester Required: No Beliefs That Will Affect Care: None marital status: / Current Living Situation: Alone How many Children do You have: 2 Other Information That Helps Us Care for You: No Feels Safe at Home: Yes Safety Concerns: Feels Safe At This Time Assistive Devices: Oxygen - at Night and Walker Review of Systems Review of Systems: All systems reviewed & are unremarkable except as noted in HPI & below Physical Exam Constitutional: Elderly female in no acute distress Eyes: PERRL, conjunctivae normal, anicteric sclerae ENMT: external ear and nose normal, oropharynx normal Neck: trachea midline, no thyromegaly Respiratory: Auscultation: + bronchovesicular breath sounds Cardiovascular: Rate/Rhythm: regular rhythm (Ventricular paced) Heart Sounds: normal S1, normal S2 ([place] mechanical valve closure sounds) and + murmur (Grade 2/6 systolic); no gallop Palpation: normal PMI Vessels: normal carotid upstroke and radial pulses present; no JVD and no carotid bruit Extremities: + edema (23 lower extremity chronic with stasis induration) Chest (Breasts): Chest: + pacemaker Gastrointestinal (Abdomen): Inspection/Auscultation: + abdomen distended (Mild with diffuse mild tenderness no rebound or guard) Musculoskeletal: no cyanosis or clubbing, extremities motor strength 5/5 Skin: + ulcer (Presacral decubitus) Neurologic: PERRL, EOMI, accommodation nl, no face palsy, no dysarthria Psychiatric: A+Ox3, euthymic affect Results & Data ([facility]) Vital Signs (Past 12 Hours) Vital Signs Temp Pulse Pulse Resp BP BP Pulse Ox 09/18/20 14:20 36.3 C L 60 18 146/64 H 95 09/18/20 13:00 62 19 140/57 L 96 09/18/20 12:30 60 20 137/50 L 94 09/18/20 12:00 60 16 112/44 L 95 09/18/20 11:30 62 20 139/57 L 96 09/18/20 11:00 60 22 139/63 95 09/18/20 10:31 60 21 131/58 L 96 09/18/20 10:00 60 16 151/65 H 99 09/18/20 09:30 60 16 131/53 L 99 09/18/20 09:02 96 09/18/20 09:00 60 16 125/49 L 95 09/18/20 08:52 61 17 127/50 L 96 09/18/20 08:26 37.1 C 71 17 137/63 89 L 09/18/20 08:24 71 18 137/63 98 Laboratory Results Laboratory Results - last 24 hr 09/18/20 09/18/20 09/18/20 08:55 08:55 08:55 WBC 5.61 RBC 4.50 Hgb 10.9 L POC Hgb Hct 34.4 L POC Hct MCV 76.4 L MCH 24.2 L MCHC 31.7 L RDW Std Deviation 57.8 H RDW Coeff of Sia 20.6 H Plt Count 130 MPV 9.6 Immature Gran % (Auto) 0.2 Neut % (Auto) 73.3 Lymph % (Auto) 16.9 Morrill % (Auto) 8.9 Eos % (Auto) 0.5 Baso % (Auto) 0.2 Neut # (Auto) 4.11 Lymph # (Auto) 0.95 L Morrill # (Auto) 0.50 Eos # (Auto) 0.03 Baso # (Auto) 0.01 Immature Gran # (Auto) 0.01 Anisocytosis Present Spherocytes Occasional PT 21.9 H INR 2.3 H APTT 35.5 H PTT Ratio 1.3 POC Sodium Sodium 127 L POC Potassium Potassium 3.9 POC Chloride Chloride 91 L Carbon Dioxide 32 POC Total CO2 Anion Gap 4.0 POC Anion Gap POC BUN BUN 11 Creatinine 0.59 L POC Creatinine Est Cr Clr Drug Dosing Not Reportable Est GFR ( Amer) 94.8 Est GFR (Non-Af Amer) 81.8 BUN/Creatinine Ratio 18.7 Glucose 83 POC Glucose (other) Calcium 8.9 POC Ioniz Calcium Robert Iron TIBC Transferrin Transferrin % Sat Ferritin Total Bilirubin 1.1 H AST 28 ALT 24 Alkaline Phosphatase 162 H Troponin I 0.049 H* Total Protein 6.7 Albumin 2.9 L Globulin 3.8 Albumin/Globulin Ratio 0.8 L Lipase 95 Vitamin B12 Folate COVID-19 Eval Order SARS-CoV-2, RNA, NAAT 09/18/20 09/18/20 09/18/20 09:01 10:20 10:20 WBC RBC Hgb POC Hgb 13.3 Hct POC Hct 39 MCV MCH MCHC RDW Std Deviation RDW Coeff of Sia Plt Count MPV Immature Gran % (Auto) Neut % (Auto) Lymph % (Auto) Morrill % (Auto) Eos % (Auto) Baso % (Auto) Neut # (Auto) Lymph # (Auto) Morrill # (Auto) Eos # (Auto) Baso # (Auto) Immature Gran # (Auto) Anisocytosis Spherocytes PT INR APTT PTT Ratio POC Sodium 126 L Sodium POC Potassium 4.0 Potassium POC Chloride 87 L Chloride Carbon Dioxide POC Total CO2 31 Anion Gap POC Anion Gap 13.0 L POC BUN 11 BUN Creatinine POC Creatinine 0.5 L Est Cr Clr Drug Dosing Est GFR ( Amer) Est GFR (Non-Af Amer) BUN/Creatinine Ratio Glucose POC Glucose (other) 89 Calcium POC Ioniz Calcium Robert 1.19 Iron TIBC Transferrin Transferrin % Sat Ferritin Total Bilirubin AST ALT Alkaline Phosphatase Troponin I Total Protein Albumin Globulin Albumin/Globulin Ratio Lipase Vitamin B12 Folate COVID-19 Eval [facility] SARS-CoV-2, RNA, NAAT NEGATIVE 09/18/20 09/18/20 09/18/20 14:17 14:17 15:49 WBC RBC Hgb POC Hgb Hct POC Hct MCV MCH MCHC RDW Std Deviation RDW Coeff of Sia Plt Count MPV Immature Gran % (Auto) Neut % (Auto) Lymph % (Auto) [place] % (Auto) Eos % (Auto) Baso % (Auto) Neut # (Auto) Lymph # (Auto) [place]rill # (Auto) Eos # (Auto) Baso # (Auto) Immature Gran # (Auto) Anisocytosis Spherocytes PT INR APTT PTT Ratio POC Sodium Sodium POC Potassium Potassium POC Chloride Chloride Carbon Dioxide POC Total CO2 Anion Gap POC Anion Gap POC BUN BUN Creatinine POC Creatinine Est Cr Clr Drug Dosing Est GFR ( Amer) Est GFR (Non-Af Amer) BUN/Creatinine Ratio Glucose POC Glucose (other) Calcium POC Ioniz Calcium Robert Iron 31 L TIBC 430 Transferrin 331 Transferrin % Sat 7 L Ferritin 57.3 Total Bilirubin AST ALT Alkaline Phosphatase Troponin I Pending Total Protein Albumin Globulin Albumin/Globulin Ratio Lipase Vitamin B12 1129 H Folate > 20.00 COVID-19 Eval Order SARS-CoV-2, RNA, NAAT (1) Atrial fibrillation Atrial fibrillation type: unspecified Qualified Code(s): I48.91 - Unspecified atrial fibrillation (2) Abdominal pain Abdominal location: generalized Qualified Code(s): R10.84 - Generalized abdominal pain
[2020-09-18] MEDS: POTASSIUM CHLORIDE CRTAB 20 MEQ TABCR PO SCH ×2 (15:55→20:26)
[2020-09-18] MEDS: LEVOTHYROXINE SODIUM 75 MCG TABLET PO SCH (15:55)
[2020-09-18] MEDS: METOPROLOL TARTRATE 100 MG TAB PO SCH ×2 (15:55→20:26)
[2020-09-18] MEDS: LOSARTAN POTASSIUM 50 MG TAB PO SCH ×2 (15:56→20:27)
[2020-09-18] MEDS ORDERED: PIPERACILLIN/TAZOBACTAM 3.375 GM in DEXTROSE 5% 100 ML IV SCH (16:00)
[2020-09-18] MEDS ORDERED: WARFARIN SOD 3 MG TAB PO SCH (16:00)
[2020-09-18] MEDS: DORZOLAMIDE/TIMOLOL 22.3/6.8MG/ML 10 ML BTL OP SCH ×2 (16:22→20:28)
[2020-09-18] MEDS: RESTASIS~ORDER AWAITING ACTION SCH (16:31)
--- NOTE | 2020-09-18 16:39 | Electrocardiogram Report ---
Test Reason : Blood Pressure : / mmHG Vent. Rate : 060 BPM Atrial Rate : 058 BPM P-R Int : 000 ms QRS Dur : 166 ms QT Int : 512 ms P-R-T Axes : 000 -77 107 degrees QTc Int : 512 ms Poor data quality, interpretation may be adversely affected Ventricular-paced rhythm Abnormal ECG When compared with ECG of 21-MAR-2020 00:10, Vent. rate has decreased BY 3 BPM Confirmed by Donald Simmons ([id number]) on 09/18/2020 4:39:31 PM Referred By: REFERRED SELF Confirmed By:Donald Simmons
[2020-09-18] MEDS: FUROSEMIDE 40 MG TAB PO SCH (16:41)
[2020-09-18 16:47] LABS: Appearance Urine Turbid (Clear); Bacteria Urine Automated Negative (Negative); Bilirubin Urine Negative (Negative); Blood Urine Negative (Negative); Color Urine Yellow; Epithelial Cell Urine Auto 20-30 /lpf (0-5); Glucose Urine UA Negative (Negative); Ketones Urine Negative (Negative); Leukocyte Esterase Urine Trace (Negative); Nitrite Urine Negative (Negative); Protein Urine Negative (Negative); RBC Urine Automated 0-4 /hpf (0-4); Specific Gravity Urine 1.042 (1.000-1.030); Urobilinogen Urine Negative (Negative); pH Urine 7.5 (4.5-7.5)
[2020-09-18] MEDS ORDERED: PHYTONADIONE 10 MG in SODIUM CHLORIDE 0.9% 50 ML IV ONE (17:00)
[2020-09-18] MEDS ORDERED: FUROSEMIDE 20 MG in SYRINGE 0 ML IV ONE (17:00)
[2020-09-18] MEDS: FAMOTIDINE 20 MG in SYRINGE 3 ML IV SCH (17:31)
--- NOTE | 2020-09-18 17:46 | XCELERA ---
[id number] \\[id number]
[2020-09-18] MEDS: metroNIDAZOLE 500 MG/100 ML BAG IV SCH (18:06)
[2020-09-18] MEDS: CIPROFLOXACIN / D5W 400 MG/200 ML BAG IV SCH (18:06)
[2020-09-18] MEDS ORDERED: IRON SUCROSE 300 MG in SODIUM CHLORIDE 0.9% 250 ML IV ONE (21:00)
--- NOTE | 2020-09-18 21:31 | Billing Data ---
Date of Service September 18, 2020 Coding Level of Care Code 90401 Initial Inpt Care Lvl 3
[2020-09-18 23:04] LABS: INR 2.1 (0.9-1.1); Prothrombin Time 20.1 Seconds (9.0-12.0)
[2020-09-19] MEDS: RESTASIS~ORDER AWAITING ACTION SCH ×3 (01:38→17:32)
[2020-09-19] MEDS: metroNIDAZOLE 500 MG/100 ML BAG IV SCH ×3 (06:07→21:51)
[2020-09-19 06:30] LABS: Basophils # (auto) 0.01 K/uL (0-0.2); Basophils % (auto) 0.2 %; Eosinophils # (auto) 0.05 K/uL (0-0.5); Eosinophils % (auto) 0.9 %; Hematocrit (blood only) 33.3 % (37-47); Hemoglobin 10.4 g/dL (12.0-16.0); Immature Granulocytes # (auto) 0.01 K/uL (0.00-0.02); Immature Granulocytes % (auto) 0.2 %; Lymphocytes # (auto) 1.04 K/uL (1.2-3.4); Mean Corpuscular Hgb Conc 31.2 g/dL (32-36); Mean Corpuscular Volume 76.9 fL (80-100); Mean Platelet Volume 9.5 fL (7.4-10.4); Monocytes # (auto) 0.56 K/uL (0.11-0.59); Monocytes % (auto) 10.2 %; Neutrophils # (auto) 3.81 K/uL (1.4-6.5); Neutrophils % (auto) 69.5 %; Platelet Count 120 K/uL (130-400); RDW Coefficient of Variation 20.7 % (11.5-14.5); Red Blood Count 4.33 M/uL (4.2-5.4); White Blood Count 5.48 K/uL (4.8-10.8)
[2020-09-19 06:35] LABS: INR 1.6 (0.9-1.1); Prothrombin Time 16.1 Seconds (9.0-12.0)
[2020-09-19 06:59] LABS: Albumin Level 2.5 gm/dl (3.4-5.0); BUN Creatinine Ratio 16.3 (10-20); Calcium 8.2 mg/dl (8.5-10.1); Est GFR (African American) 94.3; Est GFR (Non-African American) 81.4; Potassium 3.4 mmol/L (3.5-5.1)
[2020-09-19 07:01] LABS: Albumin Globulin Ratio 0.8 (0.9-2); Globulin 3.3 gm/dl (2.5-4.0); Total Protein 5.8 gm/dl (6.4-8.2)
[2020-09-19 07:28] LABS: Anisocytosis Present
[2020-09-19] MEDS ORDERED: RHOPRESSA 0.02% OP PRN (08:53)
[2020-09-19] MEDS: FAMOTIDINE 20 MG in SYRINGE 3 ML IV SCH ×2 (09:09→19:37)
[2020-09-19] MEDS: CIPROFLOXACIN / D5W 400 MG/200 ML BAG IV SCH ×2 (09:09→19:32)
[2020-09-19] MEDS: DORZOLAMIDE/TIMOLOL 22.3/6.8MG/ML 10 ML BTL OP SCH ×2 (09:10→19:34)
[2020-09-19] MEDS: amLODIPine BESYLATE 5 MG TAB PO SCH (09:11)
[2020-09-19] MEDS: LEVOTHYROXINE SODIUM 75 MCG TABLET PO SCH (09:12)
[2020-09-19] MEDS: POTASSIUM CHLORIDE CRTAB 20 MEQ TABCR PO SCH ×3 (09:12→19:32)
[2020-09-19] MEDS: METOPROLOL TARTRATE 100 MG TAB PO SCH ×2 (09:12→19:33)
[2020-09-19] MEDS: LOSARTAN POTASSIUM 50 MG TAB PO SCH ×2 (09:12→19:33)
[2020-09-19] MEDS ORDERED: POTASSIUM CHLORIDE CRTAB 20 MEQ TABCR PO STA (09:33)
[2020-09-19] MEDS ORDERED: PHYTONADIONE 5 MG in SODIUM CHLORIDE 0.9% 50 ML IV ONE (09:45)
--- NOTE | 2020-09-19 10:02 | Gastroenterology Progress Note ---
Date of Service September 19, 2020 Assessment & Plan (1) Abdominal pain: (2) Diarrhea: Pt is a 89 y/o female w diarrhea, epigastric/RUQ abd pain symptoms. Hx of choledocholithiasis s/p removal and biliary sphincterectomy in 03/2020. She then had cholecystoduodenostomy w Axios stent placement 05/2020. CT showed Axios stent may be slightly migrated out of gallbladder, suspect likely pushed out by large gallstone. Pericholecystic fluid and wall edema may be related to cirrhosis instead of cholecystitis. - Keep NPO for EGD w fluoro exam w stent repositioning +/- gallstone removals - Antibx coverage w Cipro/Flagyl IV recommended - Stool studies as previously planned to r/o infections given diarrhea symptoms and possible gastroenteritis Admission and Anticipated Discharge Date Admission Date: September 18, 2020 Supervising Physician Co-Signing Physician Notes I performed a history and physical examination of the patient today, including specifically on physical exam - soft abdomen. I have discussed the patient's management with the advanced practitioner. Please refer to the nurse practitioner's note for the documented findings and plan of care. EGD with Axios stent repositioning Subjective Pt denies anymore abd pain, no n/v, fever, chills overnight. LFTs normalizing Review of Systems Review of Systems: All systems reviewed & are unremarkable except as noted in HPI & below Physical Exam Constitutional: WD/WN, vitals as above well groomed, cooperative and comfortable Eyes: PERRL, conjunctivae normal, anicteric sclerae ENMT: external ear and nose normal, oropharynx normal Respiratory: normal respiratory effort, lungs clear to auscultation Cardiovascular: RRR, no murmur, no edema Gastrointestinal (Abdomen): Inspection/Auscultation: + hypoactive bowel sounds Percussion/Palpation: abdomen soft; abdomen nontender Skin: no rashes, warm and dry no jaundice Psychiatric: A+Ox3, euthymic affect Lymphatic: no lymphedema Results & Data ([facility]) Vital Signs (Past 12 Hours) Vital Signs Temp Pulse Pulse Resp BP BP Pulse Ox 09/19/20 07:50 36.9 C 62 20 128/62 99 09/19/20 07:10 60 09/19/20 04:31 36.6 C 64 18 130/56 L 93 09/18/20 23:00 36.6 C 60 16 129/60 95
[2020-09-19] MEDS: EPLERENONE 25MG PO SCH (10:11)
--- NOTE | 2020-09-19 10:42 | Cardiology Progress Note ---
Date of Service September 19, 2020 Assessment & Plan (1) Abdominal pain: complex 89-year-old frail female with multiple underlying cardiac issues as outlined below. She presents now with abdominal pain and diarrhea possible displaced Axios stent placed for cholelithiasis May 2020 and prohibitively high surgical risk . 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 Patient presents now with abdominal pain diarrhea and possible displaced duodenal stent. EGD planned for later today with attempt to adjust stent placement. Plan: -Improved oxygenation/fluid status this AM with one dose IV lasix yesterday. -Supplement potassium. Monitor hyponatremia. - Hold oral furosemide today due to procedure. -Echo reveals preserved LV systolic function, with moderate valvular heart disease and severely dilated RV, consistent with her history of severe pulm hypertension. - Would treat underlying iron deficiency anemia Case discussed with Dr. Warren. Will follow (2) Diarrhea: (3) Anemia: (4) Acute on chronic diastolic (congestive) heart failure: (5) Hyponatremia: (6) Atrial fibrillation: Patient with indwelling single-chamber pacemaker normal device function last interrogation June 2020, 97% ventricular battery life of greater than 3-year (7) H/O mechanical aortic valve replacement: (8) Pulmonary hypertension: As noted chest x-ray and prior multiple CTs demonstrate chronic interstitial changes consistent with intraparenchymal disease and likely elevated left heart pressure with resultant severe pulmonary pretension Admission and Anticipated Discharge Date Admission Date: September 18, 2020 Supervising Physician Co-Signing Physician Notes Patient was seen and examined, telemetry reviewed. Full assessment as above. Patient has responded to single dose of IV furosemide with improved sodium levels mild hypokalemia. Potassium supplemented this morning GI evaluation in progress with anticoagulation reversed for procedure Subjective Patient resting in bed comfortably. N/V improved. She reports generalized abdominal pain also improved. NO chest pain or SOB. Feels it is easier to take a deep breath this morning. Oxygen saturations 99% so O2 was removed. LE edema noted b/l, which she reports is chronic and unchanged. No orthopnea. EGD scheduled for 1:00 PM today per nurse. Review of Systems Review of Systems: All systems reviewed & are unremarkable except as noted in HPI & below Physical Exam Constitutional: WD/WN, vitals as above Elderly female in no acute distress Eyes: PERRL, conjunctivae normal, anicteric sclerae ENMT: external ear and nose normal, oropharynx normal Neck: trachea midline, no thyromegaly Respiratory: normal respiratory effort; no respiratory distress Auscultation: + rales (faint scattered rales) Cardiovascular: Rate/Rhythm: regular rhythm (Ventricular paced) Heart Sounds: normal S1, normal S2 and + murmur (Grade 2/6 systolic) Palpation: normal PMI Vessels: no JVD and no carotid bruit Extremities: + edema (2+ lower extremity chronic with stasis induration) Chest (Breasts): Chest: + pacemaker Gastrointestinal (Abdomen): Inspection/Auscultation: + abdomen distended (Mild with diffuse mild tenderness) Percussion/Palpation: + abdomen tender Musculoskeletal: no cyanosis or clubbing, extremities motor strength 5/5 Skin: + ulcer (Presacral decubitus) Neurologic: PERRL, EOMI, accommodation nl, no face palsy, no dysarthria Psychiatric: A+Ox3, euthymic affect Results & Data ([facility]) Vital Signs (Past 12 Hours) Vital Signs Temp Pulse Pulse Resp BP BP Pulse Ox 09/19/20 10:05 36.4 C L 60 15 134/55 L 98 09/19/20 07:50 36.9 C 62 20 128/62 99 09/19/20 07:10 60 09/19/20 04:31 36.6 C 64 18 130/56 L 93 09/18/20 23:00 36.6 C 60 16 129/60 95 Laboratory Results 09/19/20 09/19/20 09/19/20 Range/Units 06:01 06:01 06:01 WBC 5.48 (4.8-10.8) K/uL RBC 4.33 (4.2-5.4) M/uL Hgb 10.4 L (12.0-16.0) g/dL Hct 33.3 L (37-47) % MCV 76.9 L (80-100) fL MCH 24.0 L (25-34) pg MCHC 31.2 L (32-36) g/dL RDW Std Deviation 58.0 H (36.4-46.3) fL RDW Coeff of Sia 20.7 H (11.5-14.5) % Plt Count 120 L (130-400) K/uL MPV 9.5 (7.4-10.4) fL Immature Gran % (Auto) 0.2 % Neut % (Auto) 69.5 % Lymph % (Auto) 19.0 % [place] % (Auto) 10.2 % Eos % (Auto) 0.9 % Baso % (Auto) 0.2 % Neut # (Auto) 3.81 (1.4-6.5) K/uL Lymph # (Auto) 1.04 L (1.2-3.4) K/uL [place] # (Auto) 0.56 (0.11-0.59) K/uL Eos # (Auto) 0.05 (0-0.5) K/uL Baso # (Auto) 0.01 (0-0.2) K/uL Immature Gran # (Auto) 0.01 (0.00-0.02) K/uL Anisocytosis Present PT 16.1 H (9.0-12.0) Seconds INR 1.6 H (0.9-1.1) Sodium 132 L (136-145) mmol/L Potassium 3.4 L (3.5-5.1) mmol/L Chloride 95 L (98-107) mmol/L Carbon Dioxide 32 (21-32) mmol/L Anion Gap 5.0 (3-11) BUN 10 (7-18) mg/dl Creatinine 0.60 (0.6-1.2) mg/dl Est Cr Clr Drug Dosing 64.0 ml/min Est GFR ( Amer) 94.3 Est GFR (Non-Af Amer) 81.4 BUN/Creatinine Ratio 16.3 (10-20) Glucose 71 (70-99) mg/dl Calcium 8.2 L (8.5-10.1) mg/dl Iron (35-150) mcg/dl TIBC (250-450) mcg/dl Transferrin (200-360) mg/dl Transferrin % Sat (15-50) % Ferritin (8-388) ng/ml Total Bilirubin 1.0 (0.2-1) mg/dl AST 23 (15-37) U/L ALT 21 (12-78) U/L Alkaline Phosphatase 142 H (45-117) U/L Troponin I (0-0.045) ng/ml Total Protein 5.8 L (6.4-8.2) gm/dl Albumin 2.5 L (3.4-5.0) gm/dl Globulin 3.3 (2.5-4.0) gm/dl Albumin/Globulin Ratio 0.8 L (0.9-2) Vitamin B12 (193-986) pg/ml Folate (>5.38) ng/ml Urine Color Urine Appearance (Clear) Urine pH (4.5-7.5) Ur Specific [place] (1.000-1.030) Urine Protein (Negative) Urine Glucose (UA) (Negative) Urine Ketones (Negative) Urine Blood (Negative) Urine Nitrite (Negative) Urine Bilirubin (Negative) Urine Urobilinogen (Negative) Ur Leukocyte Esterase (Negative) Urine WBC (Auto) (0-5) /hpf Urine RBC (Auto) (0-4) /hpf U Hyaline Cast (Auto) (0-5) /lpf U Epithel Cells (Auto) (0-5) /lpf Urine Bacteria (Auto) (Negative) SARS-CoV-2, RNA, NAAT (NEGATIVE) 09/18/20 09/18/20 09/18/20 Range/Units 22:20 22:20 16:20 WBC (4.8-10.8) K/uL RBC (4.2-5.4) M/uL Hgb (12.0-16.0) g/dL Hct (37-47) % MCV (80-100) fL MCH (25-34) pg MCHC (32-36) g/dL RDW Std Deviation (36.4-46.3) fL RDW Coeff of Sia (11.5-14.5) % Plt Count (130-400) K/uL MPV (7.4-10.4) fL Immature Gran % (Auto) % Neut % (Auto) % Lymph % (Auto) % [place] % (Auto) % Eos % (Auto) % Baso % (Auto) % Neut # (Auto) (1.4-6.5) K/uL Lymph # (Auto) (1.2-3.4) K/uL [place] # (Auto) (0.11-0.59) K/uL Eos # (Auto) (0-0.5) K/uL Baso # (Auto) (0-0.2) K/uL Immature Gran # (Auto) (0.00-0.02) K/uL Anisocytosis PT 20.1 H (9.0-12.0) Seconds INR 2.1 H (0.9-1.1) Sodium (136-145) mmol/L Potassium (3.5-5.1) mmol/L Chloride (98-107) mmol/L Carbon Dioxide (21-32) mmol/L Anion Gap (3-11) BUN (7-18) mg/dl Creatinine (0.6-1.2) mg/dl Est Cr Clr Drug Dosing ml/min Est GFR ( Amer) Est GFR (Non-Af Amer) BUN/Creatinine Ratio (10-20) Glucose (70-99) mg/dl Calcium (8.5-10.1) mg/dl Iron (35-150) mcg/dl TIBC (250-450) mcg/dl Transferrin (200-360) mg/dl Transferrin % Sat (15-50) % Ferritin (8-388) ng/ml Total Bilirubin (0.2-1) mg/dl AST (15-37) U/L ALT (12-78) U/L Alkaline Phosphatase (45-117) U/L Troponin I 0.049 H* (0-0.045) ng/ml Total Protein (6.4-8.2) gm/dl Albumin (3.4-5.0) gm/dl Globulin (2.5-4.0) gm/dl Albumin/Globulin Ratio (0.9-2) Vitamin B12 (193-986) pg/ml Folate (>5.38) ng/ml Urine Color Yellow Urine Appearance Turbid A (Clear) Urine pH 7.5 (4.5-7.5) Ur Specific [place] 1.042 H (1.000-1.030) Urine Protein Negative (Negative) Urine Glucose (UA) Negative (Negative) Urine Ketones Negative (Negative) Urine Blood Negative (Negative) Urine Nitrite Negative (Negative) Urine Bilirubin Negative (Negative) Urine Urobilinogen Negative (Negative) Ur Leukocyte Esterase Trace H (Negative) Urine WBC (Auto) 1-5 (0-5) /hpf Urine RBC (Auto) 0-4 (0-4) /hpf U Hyaline Cast (Auto) 1-5 (0-5) /lpf U Epithel Cells (Auto) 20-30 H (0-5) /lpf Urine Bacteria (Auto) Negative (Negative) SARS-CoV-2, RNA, NAAT (NEGATIVE) 09/18/20 09/18/20 09/18/20 Range/Units 15:49 14:17 14:17 WBC (4.8-10.8) K/uL RBC (4.2-5.4) M/uL Hgb (12.0-16.0) g/dL Hct (37-47) % MCV (80-100) fL MCH (25-34) pg MCHC (32-36) g/dL RDW Std Deviation (36.4-46.3) fL RDW Coeff of Sia (11.5-14.5) % Plt Count (130-400) K/uL MPV (7.4-10.4) fL Immature Gran % (Auto) % Neut % (Auto) % Lymph % (Auto) % [place] % (Auto) % Eos % (Auto) % Baso % (Auto) % Neut # (Auto) (1.4-6.5) K/uL Lymph # (Auto) (1.2-3.4) K/uL [place] # (Auto) (0.11-0.59) K/uL Eos # (Auto) (0-0.5) K/uL Baso # (Auto) (0-0.2) K/uL Immature Gran # (Auto) (0.00-0.02) K/uL Anisocytosis PT (9.0-12.0) Seconds INR (0.9-1.1) Sodium (136-145) mmol/L Potassium (3.5-5.1) mmol/L Chloride (98-107) mmol/L Carbon Dioxide (21-32) mmol/L Anion Gap (3-11) BUN (7-18) mg/dl Creatinine (0.6-1.2) mg/dl Est Cr Clr Drug Dosing ml/min Est GFR ( Amer) Est GFR (Non-Af Amer) BUN/Creatinine Ratio (10-20) Glucose (70-99) mg/dl Calcium (8.5-10.1) mg/dl Iron 31 L (35-150) mcg/dl TIBC 430 (250-450) mcg/dl Transferrin 331 (200-360) mg/dl Transferrin % Sat 7 L (15-50) % Ferritin 57.3 (8-388) ng/ml Total Bilirubin (0.2-1) mg/dl AST (15-37) U/L ALT (12-78) U/L Alkaline Phosphatase (45-117) U/L Troponin I 0.046 H* (0-0.045) ng/ml Total Protein (6.4-8.2) gm/dl Albumin (3.4-5.0) gm/dl Globulin (2.5-4.0) gm/dl Albumin/Globulin Ratio (0.9-2) Vitamin B12 1129 H (193-986) pg/ml Folate > 20.00 (>5.38) ng/ml Urine Color Urine Appearance (Clear) Urine pH (4.5-7.5) Ur Specific [place] (1.000-1.030) Urine Protein (Negative) Urine Glucose (UA) (Negative) Urine Ketones (Negative) Urine Blood (Negative) Urine Nitrite (Negative) Urine Bilirubin (Negative) Urine Urobilinogen (Negative) Ur Leukocyte Esterase (Negative) Urine WBC (Auto) (0-5) /hpf Urine RBC (Auto) (0-4) /hpf U Hyaline Cast (Auto) (0-5) /lpf U Epithel Cells (Auto) (0-5) /lpf Urine Bacteria (Auto) (Negative) SARS-CoV-2, RNA, NAAT (NEGATIVE) 09/18/20 Range/Units 10:20 WBC (4.8-10.8) K/uL RBC (4.2-5.4) M/uL Hgb (12.0-16.0) g/dL Hct (37-47) % MCV (80-100) fL MCH (25-34) pg MCHC (32-36) g/dL RDW Std Deviation (36.4-46.3) fL RDW Coeff of Sia (11.5-14.5) % Plt Count (130-400) K/uL MPV (7.4-10.4) fL Immature Gran % (Auto) % Neut % (Auto) % Lymph % (Auto) % [place] % (Auto) % Eos % (Auto) % Baso % (Auto) % Neut # (Auto) (1.4-6.5) K/uL Lymph # (Auto) (1.2-3.4) K/uL [place] # (Auto) (0.11-0.59) K/uL Eos # (Auto) (0-0.5) K/uL Baso # (Auto) (0-0.2) K/uL Immature Gran # (Auto) (0.00-0.02) K/uL Anisocytosis PT (9.0-12.0) Seconds INR (0.9-1.1) Sodium (136-145) mmol/L Potassium (3.5-5.1) mmol/L Chloride (98-107) mmol/L Carbon Dioxide (21-32) mmol/L Anion Gap (3-11) BUN (7-18) mg/dl Creatinine (0.6-1.2) mg/dl Est Cr Clr Drug Dosing ml/min Est GFR ( Amer) Est GFR (Non-Af Amer) BUN/Creatinine Ratio (10-20) Glucose (70-99) mg/dl Calcium (8.5-10.1) mg/dl Iron (35-150) mcg/dl TIBC (250-450) mcg/dl Transferrin (200-360) mg/dl Transferrin % Sat (15-50) % Ferritin (8-388) ng/ml Total Bilirubin (0.2-1) mg/dl AST (15-37) U/L ALT (12-78) U/L Alkaline Phosphatase (45-117) U/L Troponin I (0-0.045) ng/ml Total Protein (6.4-8.2) gm/dl Albumin (3.4-5.0) gm/dl Globulin (2.5-4.0) gm/dl Albumin/Globulin Ratio (0.9-2) Vitamin B12 (193-986) pg/ml Folate (>5.38) ng/ml Urine Color Urine Appearance (Clear) Urine pH (4.5-7.5) Ur Specific [place] (1.000-1.030) Urine Protein (Negative) Urine Glucose (UA) (Negative) Urine Ketones (Negative) Urine Blood (Negative) Urine Nitrite (Negative) Urine Bilirubin (Negative) Urine Urobilinogen (Negative) Ur Leukocyte Esterase (Negative) Urine WBC (Auto) (0-5) /hpf Urine RBC (Auto) (0-4) /hpf U Hyaline Cast (Auto) (0-5) /lpf U Epithel Cells (Auto) (0-5) /lpf Urine Bacteria (Auto) (Negative) SARS-CoV-2, RNA, NAAT NEGATIVE (NEGATIVE) Diagnostic Findings Echo reviewed: Normal LV systolic function severely dilated RV with pulm hypertension Moderate MR and TR Medications Administered Current Inpatient Medications Amlodipine Besylate (Amlodipine Besylate 5 Mg Tab) 5 mg PO QAM [facility]ER Stop: 10/19/20 08:59 Last Admin: 09/19/20 09:11 Dose: 5 mg Documented by: Aspirin (Aspirin 81 Mg Ectab) 81 mg PO QAM [facility] Stop: 10/18/20 14:29 Last Admin: 09/18/20 15:56 Dose: Not Given Documented by: Dorzolamide/Timolol (Dorzolamide/Timolol 22.3/6.8mg/Ml 10 Ml Btl) 1 drops OP BID [facility]ER Stop: 10/18/20 14:29 Last Admin: 09/19/20 09:10 Dose: 1 drops Documented by: Eplerenone (Eplerenone 25mg) 1 ea PO DAILY [facility] Stop: 10/19/20 08:59 Last Admin: 09/19/20 10:11 Dose: 1 ea Documented by: Furosemide (Furosemide 40 Mg Tab) 40 mg PO BID [facility] Stop: 10/18/20 14:29 Last Admin: 09/18/20 16:41 Dose: Not Given Documented by: Hydrocortisone (Hydrocortisone Hc 2.5% Crm 30gm Tube) 1 appln EXT BID PRN PRN Reason: Hemorrhoids Stop: 10/18/20 14:29 Famotidine 20 mg/ Syringe 5 mls @ 2.5 mls/min IV BID ENDER Stop: 10/18/20 16:29 Last Admin: 09/19/20 09:09 Dose: 2.5 mls/min Documented by: Ciprofloxacin (Cipro / D5w) 400 mg in 200 mls @ 100 mls/hr IV Q12 [facility]; Protocol Stop: 09/28/20 16:29 Last Infusion: 09/19/20 10:10 Dose: 0 mls/hr Documented by: Metronidazole (Flagyl) 500 mg in 100 mls @ 100 mls/hr IV Q8 [facility] Stop: 09/28/20 17:59 Last Infusion: 09/19/20 07:32 Dose: Infused Documented by: Levothyroxine Sodium (Levothyroxine Sodium 75 Mcg Tablet) 75 mcg PO DAILYBB [facility] Stop: 10/18/20 14:29 Last Admin: 09/19/20 09:12 Dose: 75 mcg Documented by: Lorazepam (Lorazepam 0.5 Mg Tab) 0.5 mg PO BID PRN PRN Reason: Anxiety Stop: 10/18/20 14:07 Losartan Potassium (Losartan Potassium 50 Mg Tab) 50 mg PO BID [facility] Stop: 10/18/20 14:29 Last Admin: 09/19/20 09:12 Dose: 50 mg Documented by: Metoprolol Tartrate (Metoprolol Tartrate 100 Mg Tab) 100 mg PO BID [facility] Stop: 10/18/20 14:29 Last Admin: 09/19/20 09:12 Dose: 100 mg Documented by: Miscellaneous (Order Awaiting Action) 1 ea N/A QS [facility] Stop: 10/18/20 15:59 Last Admin: 09/19/20 08:54 Dose: Not Given Documented by: Multivitamins/Minerals (Cerovite Adv Formula Tab) 1 tab PO DAILY@1200 [facility] Stop: 10/19/20 11:59 Rhopressa 0.02% ~ Non-Formulary Patient's Own Med 1 ea OP HS PRN PRN Reason: OCULAR HYPERTENSION Stop: 10/19/20 08:52 Potassium Chloride (Potassium Chloride Crtab 20 Meq Tabcr) 20 meq PO TID [facility] Stop: 10/18/20 14:29 Last Admin: 09/19/20 09:12 Dose: 20 meq Documented by: (1) Atrial fibrillation Atrial fibrillation type: unspecified Qualified Code(s): I48.91 - Unspecified atrial fibrillation (2) Abdominal pain Abdominal location: generalized Qualified Code(s): R10.84 - Generalized abdominal pain
--- NOTE | 2020-09-19 11:59 | Anesthesiology Consultation ---
Date of Service September 19, 2020 Covid 19 negative on 09/18/20. The patient is noted to be a very high cardiac and pulmonary risk with severe pulmonary hypertension and right heart dysfunction. Assessment & Plan (1) Encounter for pre-operative examination: Chart Review Chart Review: Acceptable Risk for Surgery (patient is high risk, but procedure is necessary) and Patient NOT seen in Pre Admission Testing Consults Requested none cardiac is following ASA ASA4 History Surgery Operation Date: 09/19/20 13:30 Proposed Procedures p Esophagogastroduodenoscopy with Fluoro - Francesca Mendoza MD Height/Weight Height: 5 ft 5 in Weight: 70.8 kg Allergies Allergy/AdvReac Type Severity Reaction Status Date / Time Sulfa (Sulfonamide Allergy Intermediate HIVES Verified 09/18/20 10:27 Antibiotics) Medications Home Medications Medication Instructions Recorded Confirmed Last Taken furosemide [Lasix] 40 mg PO BID #0 tab 01/17/12 09/18/20 09/17/20 Centrum Silver Women 1 tab PO DAILY@1200 #0 07/31/13 09/18/20 09/17/20 aspirin [Aspirin Low Dose] 81 mg PO QAM #0 07/31/13 09/18/20 09/17/20 levothyroxine 75 mcg PO QAM #0 tab 07/31/13 09/18/20 09/17/20 warfarin 1.5 mg PO 3XWK #0 tab 07/31/13 09/18/20 09/17/20 Oxygen Home #0 09/10/13 02/13/19 Unknown lorazepam [Ativan] 0.5 mg PO BID PRN #0 tab 09/10/13 09/18/20 Unknown metoprolol tartrate 100 mg PO BID #0 tab 09/10/13 09/18/20 09/17/20 amlodipine [Norvasc] 5 mg PO QAM #0 tab 01/16/18 09/18/20 09/17/20 dorzolamide-timolol 1 drp OPHTHALMIC (EYE) AMPM 08/12/19 09/18/20 09/17/20 losartan 50 mg PO AMPM 08/12/19 09/18/20 09/17/20 Rhopressa 1 drp OPB PM PRN 03/30/20 09/18/20 Unknown potassium chloride [Klor-Con M20] 20 meq PO TID #90 tab 04/03/20 09/18/20 09/17/20 calcium carbonate [Calcium 500] 0 mg PO DAILY@1200 09/18/20 09/18/20 09/17/20 cyclosporine [Restasis] 1 drp OPB PM 09/18/20 09/18/20 09/17/20 eplerenone 25 mg PO DAILY 09/18/20 09/18/20 Unknown hydrocortisone 1 applic TOPICAL BID PRN 09/18/20 09/18/20 Unknown loperamide [Imodium] 2 mg PO Q4H PRN 09/18/20 09/18/20 09/17/20 magnesium chloride [Slow-Mag] 0 mg PO TID 09/18/20 09/18/20 09/17/20 warfarin 3 mg PO 4XWK 09/18/20 09/18/20 09/16/20 Active Medications Generic Name Dose Route Start Last Admin Trade Name Freq PRN Reason Stop Dose Admin Amlodipine Besylate 5 mg 09/19/20 09:00 09/19/20 09:11 Amlodipine Besylate 5 Mg Tab PO 10/19/20 08:59 5 mg QAM ENDER Administration Aspirin 81 mg 09/18/20 14:30 09/18/20 15:56 Aspirin 81 Mg Ectab PO 10/18/20 14:29 Not Given QAM ENDER Dorzolamide/Timolol 1 drops 09/18/20 14:30 09/19/20 09:10 Dorzolamide/Timolol 22.3/6.8mg/Ml 10 Ml Btl OP 10/18/20 14:29 1 drops BID ENDER Administration Eplerenone 1 ea 09/19/20 09:00 09/19/20 10:11 Eplerenone 25mg PO 10/19/20 08:59 1 ea DAILY ENDER Administration Furosemide 40 mg 09/18/20 14:30 09/18/20 16:41 Furosemide 40 Mg Tab PO 10/18/20 14:29 Not Given BID ENDER Famotidine 20 mg/ Syringe 5 mls @ 2.5 mls/min 09/18/20 16:30 09/19/20 09:09 IV 10/18/20 16:29 2.5 mls/min BID ENDER Administration Ciprofloxacin 400 mg in 200 mls @ 100 mls/hr 09/18/20 16:30 09/19/20 10:53 Cipro / D5w IV 09/28/20 16:29 100 mls/hr Q12 ENDER Infusion Protocol Metronidazole 500 mg in 100 mls @ 100 mls/hr 09/18/20 18:00 09/19/20 07:32 Flagyl IV 09/28/20 17:59 Infused Q8 ENDER Infusion Levothyroxine Sodium 75 mcg 09/18/20 14:30 09/19/20 09:12 Levothyroxine Sodium 75 Mcg Tablet PO 10/18/20 14:29 75 mcg DAILYBB ENDER Administration Losartan Potassium 50 mg 09/18/20 14:30 09/19/20 09:12 Losartan Potassium 50 Mg Tab PO 10/18/20 14:29 50 mg BID ENDER Administration Metoprolol Tartrate 100 mg 09/18/20 14:30 09/19/20 09:12 Metoprolol Tartrate 100 Mg Tab PO 10/18/20 14:29 100 mg BID ENDER Administration Miscellaneous 1 ea 09/18/20 16:00 09/19/20 08:54 Order Awaiting Action N/A 10/18/20 15:59 Not Given QS ENDER Potassium Chloride 20 meq 09/18/20 14:30 09/19/20 09:12 Potassium Chloride Crtab 20 Meq Tabcr PO 10/18/20 14:29 20 meq TID ENDER Administration Past Medical History Medical History Adult hypothyroidism Anemia Atrial fibrillation CHF (congestive heart failure) Choledocholithiasis Chronic hyponatremia HTN (hypertension) Pacemaker Pulmonary hypertension severe Thickened endometrium Thyroid disease Vertigo Past Family History Family History Brother Cancer Sister Cancer Past Surgical History Surgical History Aortic valve replaced H/O mechanical aortic valve replacement History of colonoscopy 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 Status post Mohs surgery Status post placement of cardiac pacemaker Social History Smoking Status: Never smoker Hx Alcohol Use: No alcohol intake frequency: 0-2 drinks per day Hx Substance Use: No substance use type: does not use Physical Exam Vital Signs Last Vital Signs Temp 36.5 C 09/19/20 11:50 Pulse 60 09/19/20 11:50 Resp 15 09/19/20 10:45 BP 135/66 09/19/20 11:50 Pulse Ox 96 09/19/20 11:50 Testing Laboratory Results 09/19/20 06:01 09/19/20 06:01 PT 16.1 Seconds (9.0-12.0) H 09/19/20 06:01 INR 1.6 (0.9-1.1) H 09/19/20 06:01 APTT 35.5 Seconds (21.0-31.0) H 09/18/20 08:55 Urine Color Yellow 09/18/20 16:20 Urine Appearance Turbid (Clear) A 09/18/20 16:20 Urine pH 7.5 (4.5-7.5) 09/18/20 16:20 Ur Specific Ramsey 1.042 (1.000-1.030) H 09/18/20 16:20 Urine Protein Negative (Negative) 09/18/20 16:20 Urine Glucose (UA) Negative (Negative) 09/18/20 16:20 Urine Ketones Negative (Negative) 09/18/20 16:20 Urine Nitrite Negative (Negative) 09/18/20 16:20 Ur Leukocyte Esterase Trace (Negative) H 09/18/20 16:20 Urine WBC (Auto) 1-5 /hpf (0-5) 09/18/20 16:20 Urine RBC (Auto) 0-4 /hpf (0-4) 09/18/20 16:20 U Hyaline Cast (Auto) 1-5 /lpf (0-5) 09/18/20 16:20 U Epithel Cells (Auto) 20-30 /lpf (0-5) H 09/18/20 16:20 Urine Bacteria (Auto) Negative (Negative) 09/18/20 16:20 Electrocardiogram Date: 09/18/20 V paced, rate 60 Chest X-Ray Date: 09/18/20 SINGLE VIEW CHEST CLINICAL HISTORY: Dyspnea. FINDINGS: An AP, portable, upright chest radiograph is compared to study dated 05/06/2020 and correlated with chest CT dated 03/21/2020. The examination is degraded by portable technique and patient rotation. The patient is status post midline sternotomy and cardiac valve surgery. A single lead cardiac pacemaker is unchanged in position and partially obscures the left lower chest. The heart is enlarged noting atherosclerotic calcification of the thoracic aorta. There is pulmonary vascular congestion. Airspace opacities are seen bilaterally. There are small pleural effusions with bibasilar consolidation. No pneumothorax is seen. The skeletal structures are osteopenic. The bony thorax is grossly intact. IMPRESSION: 1. Cardiomegaly and cardiac pacemaker with evidence of congestive failure. 2. Bilateral airspace opacities likely represent interstitial edema. Correlate clinically for evidence of a superimposed infectious/inflammatory pneumonitis. 3. Small pleural effusions with bibasilar consolidation. ACT 112: Negative or not required by law. Electronically signed by: Nathan Oseguera M.D. 09/18/2020 9:11 AM Dictated: 09/18/20908 Echocardiogram Date: 09/18/20 EF: 60-65 LV Function: normal Other Findings: + atrial enlargement (severe dilation right and left atria) and + LVH (mild concentric) Valvular Disease: + MR (moderate) R ventricular function reduced, RVSP 50-60 mmHg, IVC dilation, mechanical AV
[2020-09-19] MEDS ORDERED: ONDANSETRON INJ 2 MG/ML 2 ML VIAL IV PRN (12:06)
[2020-09-19] MEDS ORDERED: ePHEDrine sulfate 50 MG/ML AMP IV PRN (12:06)
[2020-09-19] MEDS ORDERED: KETAMINE 50 MG/5 ML SYRINGE ONE (12:08)
[2020-09-19] MEDS ORDERED: GLYCOPYRROLATE 0.2 MG/ML VIAL ONE ×2 (12:08→13:26)
--- NOTE | 2020-09-19 12:36 | History & Physical Bridge Note ---
Date of Service September 19, 2020 History & Physical Bridge Note I have examined the patient, reviewed the History & Physical and in the interval since the performance of the History & Physical I have noted the following changes of clinical significance: no changes noted
[2020-09-19] MEDS ORDERED: ONDANSETRON INJ 2 MG/ML 2 ML VIAL ONE (13:26)
[2020-09-19] MEDS ORDERED: SUCCINYLCHOLINE 100MG/5ML SYR IV ONE (13:26)
[2020-09-19] MEDS ORDERED: PROPOFOL IV EMULSION 10 MG/ML 20 ML VIAL IV ONE (13:26)
--- NOTE | 2020-09-19 14:59 | Operative Report ---
Post Operative Report Pre & Post Diagnosis Operation Date: 09/19/20 13:30 Pre-Op Diagnosis: Chronic Cholelithiasis, Acute Cholecystitis Post-Op Diagnosis: Chronic Cholelithiasis, Acute Cholecystitis I identified the patient and participated in the time-out.: Yes Procedure Operation Date: 09/19/20 13:30 Actual Procedures p Esophagogastroduodenoscopy with Fluoro, Balloon Dilation, Stone Extraction, Stent Placement(Not Applicable) - Francesca Mendoza MD Surgeon Francesca Mendoza MD Micropaleontologist None Estimated Blood Loss 0 Findings See Below (EGD with lithotripsy of gallstones) Specimens None Description of Procedure EGD I attest to the content of the Intraoperative Record and any orders documented therein. Any exceptions are noted below.
[2020-09-19] MEDS ORDERED: PANTOPRAZOLE BOLUS/DRIP 1 EA IV STA (15:19)
--- NOTE | 2020-09-19 15:23 | Gastroenterology Progress Note ---
Date of Service September 19, 2020 Assessment & Plan Admission and Anticipated Discharge Date Admission Date: September 18, 2020 Subjective EGD done today, Superficial ulcer seen in the duodenum, the Axios stent had henry rated out of the gallbladder. The Axios stent was retrieved. The Cholecystoduodenostomy fistula was dilated, multiple large stones in the gallbladder were successfully removed after mechanical lithotripsy. The Axios stent was placed back in. Recommend: IV PPI. Clear liquids today, full liquids tomorrow. IV ABx. Can resume Heparin drip after 12 hrs, around 4 AM without a bolus. Monitor H/H and INR. If stable then can resume Coumadin after 24-48 hrs. Needs repeat EGD in 4 weeks to remove the remaining stone. Results & Data ([facility]) Vital Signs (Past 12 Hours) Vital Signs Temp Pulse Pulse Pulse Resp BP BP 09/19/20 13:12 36.8 C 64 20 132/60 09/19/20 11:50 36.5 C 60 135/66 09/19/20 10:45 59 L 15 149/65 H 09/19/20 10:30 60 15 157/67 H 09/19/20 10:05 36.4 C L 60 15 134/55 L 09/19/20 07:50 36.9 C 62 20 128/62 09/19/20 07:10 60 09/19/20 04:31 36.6 C 64 18 130/56 L Pulse Ox 09/19/20 13:12 96 09/19/20 11:50 96 09/19/20 10:45 96 09/19/20 10:30 97 09/19/20 10:05 98 09/19/20 07:50 99 09/19/20 07:10 09/19/20 04:31 93
--- NOTE | 2020-09-19 15:39 | Anesthesiology Progress Note ---
Date of Service September 19, 2020 Anesthesia Post Procedure Vital Signs Vital Signs: Temp Pulse Pulse Pulse Resp BP BP 09/19/20 15:30 36.1 C L 62 16 121/52 L 09/19/20 15:20 60 16 104/50 L 09/19/20 15:13 36.1 C L 61 16 111/51 L 09/19/20 13:12 36.8 C 64 20 132/60 09/19/20 11:50 36.5 C 60 135/66 09/19/20 10:45 59 L 15 149/65 H 09/19/20 10:30 60 15 157/67 H 09/19/20 10:05 36.4 C L 60 15 134/55 L 09/19/20 07:50 36.9 C 62 20 128/62 09/19/20 07:10 60 09/19/20 04:31 36.6 C 64 18 130/56 L 09/18/20 23:00 36.6 C 60 16 129/60 09/18/20 19:39 37.0 C 60 20 150/54 H 09/18/20 18:05 60 18 149/62 H 09/18/20 17:45 60 18 159/62 H 09/18/20 17:30 60 138/61 Pulse Ox 09/19/20 15:30 95 09/19/20 15:20 92 09/19/20 15:13 94 09/19/20 13:12 96 09/19/20 11:50 96 09/19/20 10:45 96 09/19/20 10:30 97 09/19/20 10:05 98 09/19/20 07:50 99 09/19/20 07:10 09/19/20 04:31 93 09/18/20 23:00 95 09/18/20 19:39 93 09/18/20 18:05 95 09/18/20 17:45 97 09/18/20 17:30 95 Transfer of Care Handoff Completed per policy Notes Mental Status: alert / awake / arousable and participated in evaluation Patient Amnestic to Procedure: Yes Nausea / Vomiting: adequately controlled Pain: adequately controlled Airway Patency, RR, SpO2: stable & adequate BP & HR: stable & adequate Hydration State: stable & adequate Anesthetic Complications: no major complications apparent and Pt Satisfied with anesthetic care
[2020-09-19] MEDS ORDERED: PANTOprazole 80 MG in DEXTROSE 5% 100 ML IV ONE (15:45)
--- NOTE | 2020-09-19 15:54 | Fluoroscopy Report ---
FL KUB CLINICAL HISTORY: EGD WITH FLUORO IN OR COMPARISON STUDY: Abdomen and pelvis CT 09/18/2020. FLUOROSCOPY TIME: 2 minutes and 16 seconds. FINDINGS: 7 fluoroscopic spot images of the right upper quadrant were submitted. Initial images demon strate contrast within the duodenum and proximal pancreatic duct. This is followed by placement of a plastic stent through the indwelling pancreaticoduodenal stent. IMPRESSION: Fluoroscopy provided for plastic stent placement through the indwelling pancreaticoduoden al stent which appears in good position. ACT 112: Negative or not required by law. Electronically signed by: Ilya Russ M.D. 09/19/2020 3:52 PM
[2020-09-19] MEDS ORDERED: WARFARIN SOD 0.5 MG TAB PO SCH (16:00)
--- NOTE | 2020-09-19 16:21 | Operative Report ---
Post Operative Report Pre & Post Diagnosis Operation Date: 09/19/20 13:30 Pre-Op Diagnosis: Chronic Cholelithiasis, Acute Cholecystitis Post-Op Diagnosis: Chronic Cholelithiasis, Acute Cholecystitis I identified the patient and participated in the time-out.: Yes Procedure Operation Date: 09/19/20 13:30 Actual Procedures p Esophagogastroduodenoscopy with Fluoro, Balloon Dilation, Stone Extraction, Stent Placement(Not Applicable) - Francesca Mendoza MD Surgeon Francesca Mendoza MD Stem Processing Machine Operator None Estimated Blood Loss 0 Findings See Below (CBD stone removed, stent placed) Specimens None Description of Procedure EUS/ERCP I attest to the content of the Intraoperative Record and any orders documented therein. Any exceptions are noted below.
--- NOTE | 2020-09-19 16:53 | GI REPORT ---
Patient Name: Clarisse Mo Procedure Date: 09/19/2020 12:42 PM Date of : 1930 Admit Type: Inpatient Age: 89 Gender: Female Attending MD: Francesca Mendoza MD Procedure: Upper GI endoscopy Providers: Francesca Mendoza MD Referring MD: Arthur Costa Indications: Abdominal pain Medicines: General Anesthesia Complications: No immediate complications. Estimated Blood Loss: Estimated blood loss: none. Procedure: Pre-Anesthesia Assessment: - Prior to the procedure, a History and Physical was performed, and patient medications, allergies and sensitivities were reviewed. The patient's tolerance of previous anesthesia was reviewed. - The risks and benefits of the procedure and the sedation options and risks were discussed with the patient. All questions were answered and informed consent was obtained. - Patient identification and proposed procedure were verified prior to the procedure by the physician and the nurse. The procedure was verified in the procedure room. - Pre-procedure physical examination revealed no contraindications to sedation. After obtaining informed consent, the endoscope was passed under direct vision. Throughout the procedure, the patient's blood pressure, pulse, and oxygen saturations were monitored continuously. The Endoscope was introduced through the mouth, and advanced to the second part of duodenum. After obtaining informed consent, the endoscope was passed under direct vision. Throughout the procedure, the patient's blood pressure, pulse, and oxygen saturations were monitored continuously.The upper GI endoscopy was accomplished without difficulty. The patient tolerated the procedure well. Findings: Impression: - Normal Esophagus. - Normal Stomach. - Superficial duodenal bulb ulcer. - Previously placed Axios stent had migrated out of the gallbladder but remained in the duodenum, this was retrieved. - Food removed from the duodenal bulb. - A cholecystoduodenostomy fistula was found in the duodenal bulb, this was dilated with a balloon, the gallbladder was intubated, multiple large stone (>2cm) were fragmented and removed using mechanical lithotripsy. - The Axios stent was replaced back to maintain the cholecystoduodenostomy open. Recommendation: - [facility]. - Clear liquid diet today, then advance as tolerated to full liquid diet. - Continue IV ABx, need to complete total 7 days upon discharge. - IV PPI for 24 hrs then PO BID. - Can start IV Heparin drip at 4 AM (after 12 hrs) without a bolus. If no issues then can start Coumadin in 24-48 hrs. - Repeat upper endoscopy in 4 weeks for retreatment and clean the gallbladder from any remaining stones. Francesca Mendoza MD 09/19/2020 4:53:12 PM This report has been signed electronically. Note Initiated On: 09/19/2020 12:42 PM Number of Addenda: 0 I attest to the content of the Intraoperative Record and orders documented therein, exceptions below {[id number]}
[2020-09-19] MEDS: CEROVITE ADV FORMULA TAB PO SCH (17:05)
[2020-09-19] MEDS: PANTOprazole 40 MG in DEXTROSE 5% 100 ML IV SCH ×2 (17:32→21:51)
--- NOTE | 2020-09-19 20:01 | Hospitalist Progress Note ---
Date of Service September 19, 2020 Assessment & Plan (1) Cholecystoduodenal fistula: ARTIFICIAL -- Cholecystoduodenostomy Axios Stent placed 05/30. This was placed due to concern that patient would not tolerate a cholecystectomy. Patient presented yesterday with significant abdominal pain. s/p EGD today due to CT findings. Stent had migrated out of position as confirmed on EGD. Possibly the stent was dislodged by large gallstones. Gallstones were broken up, removed, and then stent placed back through the fistula. APPRECIATE Dr Mendoza's expertise. Clears today, full liquids tomorrow. Continue IV cipro/flagyl. (2) Gallstones: Known. s/p breakup and removal of 2 large stones today during EGD. Patient will have repeat EGD in a few weeks to remove any remaining stones. See above in "cholecystoduodenal fistula." (3) Duodenal ulcer: As seen on EGD today. HOLD asa. HOLD coumadin. IV PPI. Then PO PPI twice daily starting tomorrow. (4) Sacral decubitus ulcer, stage III: Pressure ulcer of left lateral sacral region, stage 3 - present on admission. Wound care consult and recs appreciated. (5) Diarrhea: Had been frequent leading up to this admission but now none in 2+ days. If diarrhea recurs - send for c.diff, etc. 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 relatively compensated at this time. (7) Hypokalemia: replace BMP am (8) Chronic diastolic heart failure: Appreciate cardiology consultation and recs. Looks relatively euvolemic today. (9) Chronic hyponatremia: Due to chronic diuretics? Reset osmostat? Daily BMP for stability. (10) Pulmonary hypertension: Severe. With resulting right-sided CHF and chronic hypoxic respiratory failure. (11) Adult hypothyroidism: TSH 03/2020 wnl Cont synthroid w/o changes (12) Atrial fibrillation: Typically on coumadin for anticoagulation. HOLDING COUMADIN due to EGD. Heparin infusion can be resumed 12 hours post-op from EGD. (13) H/O mechanical aortic valve replacement: Chronic coumadin daily INR (14) HTN (hypertension): controlled (15) Chronic right-sided CHF (congestive heart failure): relatively compensated at this time continue metoprolol tartrate 100mg BID continue losartan 50mg BID holding lasix for now (16) Chronic respiratory failure with hypoxia: stable on 2-3 LC NC daughter updated extensively by phone this evening Admission and Anticipated Discharge Date Admission Date: September 18, 2020 Subjective saw patient post-EGD she had mild abdominal discomfort but nothing like what she had had before admission no nausea/emesis since returning from EGD denies any dyspnea tele overnight with pacing she asked multiple questions about her recent diarrhea; however, no stools in 2 days Review of Systems Constitutional: + fatigue; no fever and no chills Respiratory: no dyspnea Cardiovascular: no chest pain Gastrointestinal: + abdominal pain Physical Exam Constitutional: + frail appearing; no acute distress and no altered mental status (slight confusion; asked similar questions repeatedly) ENMT: Mouth: oral mucous membranes not dry Respiratory: no respiratory distress Auscultation: + rales (diffuse, soft, dry sounding b/l ); no diminished lung sounds and no wheezes Cardiovascular: Rate/Rhythm: regular rate and regular rhythm Heart Sounds: normal S1, normal S2 and + murmur (2/6 LLSB) Vessels: + JVD, posterior tibial pulses present and dorsalis pedis pulses present Extremities: + edema (2+ b/l extending to the knees ) Gastrointestinal (Abdomen): Inspection/Auscultation: + abdomen distended (ascites? body wall edema?) Percussion/Palpation: + abdomen tender (mild - periumbilical region ); no guarding and no hepatosplenomegaly Skin: stasis changes b/l legs Psychiatric: Orientation: alert, oriented to person and oriented to place Results & Data Results & Data ([facility]) Vital Signs (Past 12 Hours) Vital Signs Temp Pulse Pulse Pulse Resp BP BP 09/19/20 19:28 36.3 C L 60 19 111/53 L 09/19/20 17:00 60 09/19/20 16:59 36.8 C 61 14 129/61 09/19/20 16:04 61 15 129/61 09/19/20 15:40 36.1 C L 60 16 126/66 09/19/20 15:30 36.1 C L 62 16 121/52 L 09/19/20 15:20 60 16 104/50 L 09/19/20 15:13 36.1 C L 61 16 111/51 L 09/19/20 13:12 36.8 C 64 20 132/60 09/19/20 11:50 36.5 C 60 135/66 09/19/20 10:45 59 L 15 149/65 H 09/19/20 10:30 60 15 157/67 H 09/19/20 10:05 36.4 C L 60 15 134/55 L Pulse Ox 09/19/20 19:28 95 09/19/20 17:00 09/19/20 16:59 98 09/19/20 16:04 98 09/19/20 15:40 93 09/19/20 15:30 93 09/19/20 15:20 92 09/19/20 15:13 94 09/19/20 13:12 96 09/19/20 11:50 96 09/19/20 10:45 96 09/19/20 10:30 97 09/19/20 10:05 98 Laboratory Results Laboratory Results - last 24 hr 09/18/20 09/18/20 09/19/20 22:20 22:20 06:01 WBC 5.48 RBC 4.33 Hgb 10.4 L Hct 33.3 L MCV 76.9 L MCH 24.0 L MCHC 31.2 L RDW Std Deviation 58.0 H RDW Coeff of Sia 20.7 H Plt Count 120 L MPV 9.5 Immature Gran % (Auto) 0.2 Neut % (Auto) 69.5 Lymph % (Auto) 19.0 Upton % (Auto) 10.2 Eos % (Auto) 0.9 Baso % (Auto) 0.2 Neut # (Auto) 3.81 Lymph # (Auto) 1.04 L [place]pton # (Auto) 0.56 Eos # (Auto) 0.05 Baso # (Auto) 0.01 Immature Gran # (Auto) 0.01 Anisocytosis Present PT 20.1 H INR 2.1 H Sodium Potassium Chloride Carbon Dioxide Anion Gap BUN Creatinine Est Cr Clr Drug Dosing Est GFR ( Amer) Est GFR (Non-Af Amer) BUN/Creatinine Ratio Glucose POC Glucose Calcium Total Bilirubin AST ALT Alkaline Phosphatase Troponin I 0.049 H* Total Protein Albumin Globulin Albumin/Globulin Ratio 09/19/20 09/19/20 09/19/20 06:01 06:01 17:37 WBC RBC Hgb Hct MCV MCH MCHC RDW Std Deviation RDW Coeff of Sia Plt Count MPV Immature Gran % (Auto) Neut % (Auto) Lymph % (Auto) Upton % (Auto) Eos % (Auto) Baso % (Auto) Neut # (Auto) Lymph # (Auto) [place]pton # (Auto) Eos # (Auto) Baso # (Auto) Immature Gran # (Auto) Anisocytosis PT 16.1 H INR 1.6 H Sodium 132 L Potassium 3.4 L Chloride 95 L Carbon Dioxide 32 Anion Gap 5.0 BUN 10 Creatinine 0.60 Est Cr Clr Drug Dosing 64.0 Est GFR ( Amer) 94.3 Est GFR (Non-Af Amer) 81.4 BUN/Creatinine Ratio 16.3 Glucose 71 POC Glucose 91 Calcium 8.2 L Total Bilirubin 1.0 AST 23 ALT 21 Alkaline Phosphatase 142 H Troponin I Total Protein 5.8 L Albumin 2.5 L Globulin 3.3 Albumin/Globulin Ratio 0.8 L PG Care Time/CCT Total # of Minutes Spent Total Time Spent with Patient: Total time spent is greater than 50% in coordination of care (as documented) at patient's floor/unit and/or counseling patient: Coding Level of Care Code 85270 Subseq Hosp Care Lvl 3 Diagnoses Cholecystoduodenal fistula K82.3 Gallstones K80.20 Duodenal ulcer K26.9 Sacral decubitus ulcer, stage III L89.153 Diarrhea R19.7 Diarrhea type: unspecified type Cirrhosis K74.60 Hepatic cirrhosis type: unspecified hepatic cirrhosis Ascites presence: unspecified Hypokalemia E87.6 Chronic diastolic heart failure I50.32 Chronic hyponatremia E87.1 Pulmonary hypertension I27.20 Adult hypothyroidism E03.9 Atrial fibrillation I48.91 Atrial fibrillation type: unspecified H/O mechanical aortic valve replacement Z95.2 HTN (hypertension) I10 Hypertension type: essential hypertension Chronic right-sided CHF (congestive heart failure) I50.812 Chronic respiratory failure with hypoxia J96.11 (1) Diarrhea Diarrhea type: unspecified type Qualified Code(s): R19.7 - Diarrhea, unspecified (2) Cirrhosis Hepatic cirrhosis type: unspecified hepatic cirrhosis Ascites presence: unspecified Qualified Code(s): K74.60 - Unspecified cirrhosis of liver (3) Atrial fibrillation Atrial fibrillation type: unspecified Qualified Code(s): I48.91 - Unspecified atrial fibrillation (4) HTN (hypertension) Hypertension type: essential hypertension Qualified Code(s): I10 - Essential (primary) hypertension
[2020-09-20] MEDS: RESTASIS~ORDER AWAITING ACTION SCH ×4 (01:57→23:28)
[2020-09-20] MEDS: PANTOprazole 40 MG in DEXTROSE 5% 100 ML IV SCH ×3 (03:05→14:14)
[2020-09-20] MEDS ORDERED: Heparin IV Adult Wt-Based Standard *NO* Bolus Protocol ONE (05:00)
[2020-09-20] MEDS: metroNIDAZOLE 500 MG/100 ML BAG IV SCH ×3 (05:52→21:51)
[2020-09-20] MEDS: LEVOTHYROXINE SODIUM 75 MCG TABLET PO SCH (05:53)
[2020-09-20 06:23] LABS: Partial Thromboplastin Ratio 1.3; Partial Thromboplastin Time 34.6 Seconds (21.0-31.0)
[2020-09-20] MEDS: HEPARIN SODIUM/DEXTROSE 25,000 UNITS/500 ML BAG IV SCH (06:28)
[2020-09-20] MEDS: LOSARTAN POTASSIUM 50 MG TAB PO SCH ×2 (07:24→19:46)
[2020-09-20] MEDS: METOPROLOL TARTRATE 100 MG TAB PO SCH ×2 (07:25→19:45)
[2020-09-20] MEDS: POTASSIUM CHLORIDE CRTAB 20 MEQ TABCR PO SCH ×2 (07:25→15:04)
[2020-09-20] MEDS: EPLERENONE 25MG PO SCH (07:25)
[2020-09-20] MEDS: amLODIPine BESYLATE 5 MG TAB PO SCH (07:25)
[2020-09-20] MEDS: DORZOLAMIDE/TIMOLOL 22.3/6.8MG/ML 10 ML BTL OP SCH ×2 (07:26→19:47)
[2020-09-20] MEDS: CIPROFLOXACIN / D5W 400 MG/200 ML BAG IV SCH ×2 (07:27→19:45)
[2020-09-20] MEDS: FAMOTIDINE 20 MG in SYRINGE 3 ML IV SCH (07:52)
--- NOTE | 2020-09-20 10:29 | Cardiology Progress Note ---
Date of Service September 20, 2020 Assessment & Plan (1) Abdominal pain: Patient is a complex 89-year-old frail female with multiple underlying cardiac issues as outlined below. She presents now with abdominal pain and diarrhea possible displaced Axios stent placed for cholelithiasis May 2020 and prohibitively high surgical risk . 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 Patient underwent repositioning of Axios stent yesterday uneventfully. Anticoagulation resumed with IV heparin Complaint today of nausea and persistent rectal pain question hemorrhoidal versus secondary to sacral ulcer Plan: Check CBC/H&H and if hemoglobin stable resume warfarin this evening Continue outpatient antihypertensives and diuretics. Check BMP today to assess hyponatremia and potassium level (2) Diarrhea: (3) Anemia: (4) Acute on chronic diastolic (congestive) heart failure: (5) Hyponatremia: (6) Atrial fibrillation: Patient with indwelling single-chamber pacemaker normal device function last interrogation June 2020, 97% ventricular battery life of greater than 3-year (7) H/O mechanical aortic valve replacement: (8) Pulmonary hypertension: As noted chest x-ray and prior multiple CTs demonstrate chronic interstitial changes consistent with intraparenchymal disease and likely elevated left heart pressure with resultant severe pulmonary pretension Admission and Anticipated Discharge Date Admission Date: September 18, 2020 Subjective Patient was seen and examined, chart, medications, telemetry reviewed. No cardiac complaints this morning. Mild nausea. Main concern regarding possible prolapsed hemorrhoid versus pain from sacral ulcer No chest pains, tachypalpitations dizziness or lightheadedness. Full anticoagulation resumed with heparin infusion. Review of Systems Review of Systems: All systems reviewed & are unremarkable except as noted in HPI & below Physical Exam Eyes: PERRL, conjunctivae normal, anicteric sclerae ENMT: external ear and nose normal, oropharynx normal Neck: trachea midline, no thyromegaly Respiratory: Auscultation: + bronchovesicular breath sounds Cardiovascular: Rate/Rhythm: regular rhythm (Ventricular paced) Heart Sounds: normal S1, normal S2 ([place] mechanical valve closure sounds) and + murmur (Grade 2/6 systolic); no gallop Palpation: normal PMI Vessels: normal carotid upstroke and radial pulses present; no JVD and no carotid bruit Extremities: + edema (2+lower extremity chronic with stasis induration) Chest (Breasts): Chest: + pacemaker Gastrointestinal (Abdomen): Inspection/Auscultation: + abdomen distended (Mild with diffuse mild tenderness no rebound or guard) Musculoskeletal: no cyanosis or clubbing, extremities motor strength 5/5 Skin: no rashes, warm and dry + ulcer (Presacral decubitus) Neurologic: PERRL, EOMI, accommodation nl, no face palsy, no dysarthria Psychiatric: A+Ox3, euthymic affect Results & Data ([facility]) Vital Signs (Past 12 Hours) Vital Signs Temp Pulse Pulse Pulse Resp BP Pulse Ox 09/20/20 08:35 61 09/20/20 07:41 36.4 C L 63 19 117/57 L 96 09/20/20 04:32 36.3 C L 60 19 129/52 L 94 09/20/20 00:00 60 09/19/20 23:01 36.3 C L 60 20 125/67 92 Laboratory Results Laboratory Results - last 24 hr 09/19/20 09/20/20 17:37 05:52 APTT 34.6 H PTT Ratio 1.3 POC Glucose 91 Medications Administered Current Medications Amlodipine Besylate (Amlodipine Besylate 5 Mg Tab) 5 mg PO QAM ENDER Stop: 10/19/20 08:59 Last Admin: 09/20/20 07:25 Dose: 5 mg Documented by: Aspirin (Aspirin 81 Mg Ectab) 81 mg PO QAM ENDER Stop: 10/18/20 14:29 Last Admin: 09/18/20 15:56 Dose: Not Given Documented by: Dorzolamide/Timolol (Dorzolamide/Timolol 22.3/6.8mg/Ml 10 Ml Btl) 1 drops OP BID ENDER Stop: 10/18/20 14:29 Last Admin: 09/20/20 07:26 Dose: 1 drops Documented by: Eplerenone (Eplerenone 25mg) 1 ea PO DAILY ENDER Stop: 10/19/20 08:59 Last Admin: 09/20/20 07:25 Dose: 1 ea Documented by: Furosemide (Furosemide 40 Mg Tab) 40 mg PO BID ENDER Stop: 10/18/20 14:29 Last Admin: 09/18/20 16:41 Dose: Not Given Documented by: Hydrocortisone (Hydrocortisone Hc 2.5% Crm 30gm Tube) 1 appln EXT BID PRN PRN Reason: Hemorrhoids Stop: 10/18/20 14:29 Famotidine 20 mg/ Syringe 5 mls @ 2.5 mls/min IV BID [facility] Stop: 10/18/20 16:29 Last Admin: 09/20/20 07:52 Dose: 2.5 mls/min Documented by: Ciprofloxacin (Cipro / D5w) 400 mg in 200 mls @ 100 mls/hr IV Q12 [facility]; Protocol Stop: 09/28/20 16:29 Last Infusion: 09/20/20 09:27 Dose: Infused Documented by: Metronidazole (Flagyl) 500 mg in 100 mls @ 100 mls/hr IV Q8 [facility] Stop: 09/28/20 17:59 Last Infusion: 09/20/20 07:03 Dose: Infused Documented by: Pantoprazole Sodium 40 mg/ (Dextrose) 100 mls @ 20 mls/hr IV Q5H [facility] Stop: 10/19/20 15:59 Last Infusion: 09/20/20 07:46 Dose: 0 mg/hr, 0 mls/hr Documented by: Heparin Sodium/Dextrose (Heparin Sodium/Dextrose) 25,000 units in 500 mls @ 22 mls/hr IV .[id number] [facility]; Protocol Stop: 10/20/20 04:59 Last Admin: 09/20/20 06:28 Dose: 1,100 units/hr, 22 mls/hr Documented by: Levothyroxine Sodium (Levothyroxine Sodium 75 Mcg Tablet) 75 mcg PO DAILYBB [facility] Stop: 10/18/20 14:29 Last Admin: 09/20/20 05:53 Dose: 75 mcg Documented by: Lorazepam (Lorazepam 0.5 Mg Tab) 0.5 mg PO BID PRN PRN Reason: Anxiety Stop: 10/18/20 14:07 Losartan Potassium (Losartan Potassium 50 Mg Tab) 50 mg PO BID [facility] Stop: 10/18/20 14:29 Last Admin: 09/20/20 07:24 Dose: 50 mg Documented by: Metoprolol Tartrate (Metoprolol Tartrate 100 Mg Tab) 100 mg PO BID [facility] Stop: 10/18/20 14:29 Last Admin: 09/20/20 07:25 Dose: 100 mg Documented by: Miscellaneous (Restasis~Order Awaiting Action) 1 ea N/A QS [facility] Stop: 10/18/20 15:59 Last Admin: 09/20/20 07:52 Dose: Not Given Documented by: Multivitamins/Minerals (Cerovite Adv Formula Tab) 1 tab PO DAILY@1200 ENDER Stop: 10/19/20 11:59 Last Admin: 09/19/20 17:05 Dose: 1 tab Documented by: Rhopressa 0.02% ~ Non-Formulary Patient's Own Med 1 ea OP HS PRN PRN Reason: OCULAR HYPERTENSION Stop: 10/19/20 08:52 Potassium Chloride (Potassium Chloride Crtab 20 Meq Tabcr) 20 meq PO TID [facility] Stop: 10/18/20 14:29 Last Admin: 09/20/20 07:25 Dose: 20 meq Documented by: (1) Abdominal pain Abdominal location: generalized Qualified Code(s): R10.84 - Generalized abdominal pain (2) Atrial fibrillation Atrial fibrillation type: unspecified Qualified Code(s): I48.91 - Unspecified atrial fibrillation
[2020-09-20 11:02] LABS: Basophils # (auto) 0.01 K/uL (0-0.2); Basophils % (auto) 0.1 %; Eosinophils # (auto) 0.04 K/uL (0-0.5); Eosinophils % (auto) 0.6 %; Hematocrit (blood only) 33.8 % (37-47); Hemoglobin 10.5 g/dL (12.0-16.0); Immature Granulocytes # (auto) 0.01 K/uL (0.00-0.02); Immature Granulocytes % (auto) 0.1 %; Lymphocytes # (auto) 0.91 K/uL (1.2-3.4); Lymphocytes % (auto) 12.8 %; Mean Corpuscular Hemoglobin 24.2 pg (25-34); Mean Corpuscular Hgb Conc 31.1 g/dL (32-36); Mean Corpuscular Volume 78.1 fL (80-100); Mean Platelet Volume 9.6 fL (7.4-10.4); Monocytes # (auto) 0.46 K/uL (0.11-0.59); Monocytes % (auto) 6.5 %; Neutrophils # (auto) 5.67 K/uL (1.4-6.5); Neutrophils % (auto) 79.9 %; Platelet Count 121 K/uL (130-400); RDW Coefficient of Variation 20.8 % (11.5-14.5); RDW Standard Deviation 59.1 fL (36.4-46.3); Red Blood Count 4.33 M/uL (4.2-5.4)
[2020-09-20 11:09] LABS: Calcium 9.2 mg/dl (8.5-10.1); Creatinine Clr Calc Pharmacy 70.9 ml/min; Est GFR (African American) 97.1; Est GFR (Non-African American) 83.7; Potassium 4.5 mmol/L (3.5-5.1)
[2020-09-20 11:20] LABS: Anisocytosis Present
[2020-09-20] MEDS: CEROVITE ADV FORMULA TAB PO SCH (11:44)
[2020-09-20] MEDS ORDERED: Nursing to Pharmacy Communication SCH (12:00)
[2020-09-20 12:45] LABS: Partial Thromboplastin Ratio > 5.3
[2020-09-20 12:50] LABS: Partial Thromboplastin Time > 139.0 Seconds (21.0-31.0)
[2020-09-20 15:12] LABS: Partial Thromboplastin Ratio 2.4
[2020-09-20 15:17] LABS: Partial Thromboplastin Time 63.8 Seconds (21.0-31.0)
[2020-09-20] MEDS ORDERED: WARFARIN SOD 3 MG TAB PO ONE (16:52)
[2020-09-20] MEDS: HYDROCORTISONE HC 2.5% CRM 30GM TUBE EXT SCH ×2 (18:16→19:48)
--- NOTE | 2020-09-20 18:42 | Hospitalist Progress Note ---
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 This was placed due to concern that patient would not tolerate a cholecystectomy due to numerous comorbidities. POD #1 - s/p EGD with repositioning of stent and break-up of [address]stones[address] APPRECIATE [address] Mendoza's expertise. Full liquids today, then regular diet tomorrow. Continue IV cipro/flagyl as per GI recommendations. (2) Gallstones: Known. s/p breakup and removal of 2 large stones via EGD. Patient will have repeat EGD in a few weeks to remove any remaining stones. See above in "cholecystoduodenal fistula." (3) Duodenal ulcer: As seen on EGD. HOLD asa. Resume coumadin - H/H stable. Change IV PPI to po protonix; give protonix BID. (4) Sacral decubitus ulcer, stage III: Pressure ulcer of left lateral sacral region, stage 3 - present on admission. Wound care consult and recs appreciated. (5) Diarrhea: Had been frequent leading up to this admission but now none in 3+ days. If diarrhea recurs - send for c.diff, etc. 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 relatively compensated at this time. (7) Hypokalemia: replaced and resolved BMP am (8) Chronic diastolic heart failure: Appreciate cardiology consultation and recs. Has LE edema and probable ascites or body wall edema -- resume lasix in am. (9) Chronic hyponatremia: Due to chronic diuretics? Reset osmostat? Check serum Osm, urine Osm, urine Na. BMP am. She is trending down - this needs careful attention. (10) Pulmonary hypertension: Severe. With resulting right-sided CHF and chronic hypoxic respiratory failure. (11) Adult hypothyroidism: TSH 03/2020 wnl Cont synthroid w/o changes (12) Atrial fibrillation: Typically on coumadin for anticoagulation. Resume today. Heparin bridge given [facility] valve. (13) H/O mechanical aortic valve replacement: Chronic coumadin - resume today daily INR cont heparin bridge (14) HTN (hypertension): controlled (15) Chronic right-sided CHF (congestive heart failure): continue metoprolol tartrate 100mg BID continue losartan 50mg BID since diet to be resumed tomorrow would also resume lasix at that time (16) External hemorrhoid: anusol cream QID keep stool soft (17) Chronic respiratory failure with hypoxia: stable on 2-3 LC NC daughter updated extensively by phone - 09/19/20 Admission and Anticipated Discharge Date Admission Date: September 18, 2020 Subjective patient resting comfortably during the visit feels well with minimal abd pain but does c/o external hemorrhoids asks multiple questions about her diarrhea but she hasn't had a stool since admi ssion denies dyspnea at rest no chest pain tele - pacing Review of Systems Constitutional: + fatigue; no fever Respiratory: no cough Cardiovascular: no chest pain and no orthopnea Gastrointestinal: + abdominal pain; no nausea and no vomiting Physical Exam Constitutional: + frail appearing; no acute distress and no altered mental status (slight confusion; asked similar questions repeatedly much like yesterday ) ENMT: Mouth: + oropharynx abnormality (evidence of trauma from recent ETT (injected, petechiae, etc)) Respiratory: no respiratory distress Auscultation: + rales (diffuse, soft, dry sounding b/l ); no diminished lung sounds and no wheezes Cardiovascular: Rate/Rhythm: regular rate and regular rhythm Heart Sounds: normal S1, normal S2 and + murmur (2/6 LLSB) Vessels: + JVD, posterior tibial pulses present and dorsalis pedis pulses present Extremities: + edema (2+ b/l extending to the knees ) Gastrointestinal (Abdomen): Inspection/Auscultation: + abdomen distended (ascites? body wall edema?) Percussion/Palpation: + abdomen tender (just to right of periumbilical region ); no guarding and no hepatosplenomegaly Rectal Exam: + hemorrhoids (nonthrombosed (I was chaperoned by nursing staff while checking rectum)) Psychiatric: Orientation: alert, oriented to person and oriented to place; + not oriented to time Results & Data Results & Data ([facility]) Vital Signs (Past 12 Hours) Vital Signs Temp Pulse Pulse Resp BP Pulse Ox Pulse Ox 09/20/20 16:00 61 09/20/20 15:44 36.4 C L 60 18 117/62 93 09/20/20 13:40 92 09/20/20 11:52 92 09/20/20 11:38 36.3 C L 63 18 129/68 93 09/20/20 08:35 61 09/20/20 07:41 36.4 C L 63 19 117/57 L 96 Na 125 (baseline low 130s) Cr 0.55 INR 1.6 Hemoglobin 10.5 PG Care Time/CCT Total # of Minutes Spent Total Time Spent with Patient: Total time spent is greater than 50% in coordination of care (as documented) at patient's floor/unit and/or counseling patient: Coding Level of Care Code 84752 Subseq Hosp Care Lvl 3 Diagnoses Cholecystoduodenal fistula K82.3 Gallstones K80.20 Duodenal ulcer K26.9 Sacral decubitus ulcer, stage III L89.153 Diarrhea R19.7 Diarrhea type: unspecified type Cirrhosis K74.60 Hepatic cirrhosis type: unspecified hepatic cirrhosis Ascites presence: unspecified Hypokalemia E87.6 Chronic diastolic heart failure I50.32 Chronic hyponatremia E87.1 Pulmonary hypertension I27.20 Adult hypothyroidism E03.9 Atrial fibrillation I48.91 Atrial fibrillation type: unspecified H/O mechanical aortic valve replacement Z95.2 HTN (hypertension) I10 Hypertension type: essential hypertension Chronic right-sided CHF (congestive heart failure) I50.812 External hemorrhoid K64.4 Chronic respiratory failure with hypoxia J96.11 (1) Diarrhea Diarrhea type: unspecified type Qualified Code(s): R19.7 - Diarrhea, unspecified (2) Cirrhosis Hepatic cirrhosis type: unspecified hepatic cirrhosis Ascites presence: unspecified Qualified Code(s): K74.60 - Unspecified cirrhosis of liver (3) Atrial fibrillation Atrial fibrillation type: unspecified Qualified Code(s): I48.91 - Unspecified atrial fibrillation (4) HTN (hypertension) Hypertension type: essential hypertension Qualified Code(s): I10 - Essential (primary) hypertension
[2020-09-20] MEDS: PANTOprazole 40 MG TAB PO SCH (19:47)
[2020-09-20 22:11] LABS: Partial Thromboplastin Ratio 3.6
[2020-09-20 22:22] LABS: Partial Thromboplastin Time 93.5 Seconds (21.0-31.0)
[2020-09-21] MEDS: LEVOTHYROXINE SODIUM 75 MCG TABLET PO SCH (05:09)
[2020-09-21] MEDS: metroNIDAZOLE 500 MG/100 ML BAG IV SCH ×3 (05:10→23:24)
[2020-09-21 06:53] LABS: Hematocrit (blood only) 32.5 % (37-47); Hemoglobin 10.2 g/dL (12.0-16.0); Mean Corpuscular Hemoglobin 24.3 pg (25-34); Mean Corpuscular Hgb Conc 31.4 g/dL (32-36); Mean Corpuscular Volume 77.4 fL (80-100); Mean Platelet Volume 9.6 fL (7.4-10.4); Platelet Count 124 K/uL (130-400); RDW Coefficient of Variation 20.7 % (11.5-14.5); RDW Standard Deviation 58.7 fL (36.4-46.3); White Blood Count 6.81 K/uL (4.8-10.8)
[2020-09-21 07:30] LABS: BUN Creatinine Ratio 15.3 (10-20); Calcium 8.3 mg/dl (8.5-10.1); Creatinine Clr Calc Pharmacy 79.2 ml/min; Est GFR (African American) 100.8; Potassium 4.9 mmol/L (3.5-5.1)
[2020-09-21] MEDS: PANTOprazole 40 MG TAB PO SCH ×2 (09:03→19:25)
[2020-09-21] MEDS: CIPROFLOXACIN / D5W 400 MG/200 ML BAG IV SCH ×2 (09:04→19:24)
[2020-09-21] MEDS: LOSARTAN POTASSIUM 50 MG TAB PO SCH (09:04)
[2020-09-21] MEDS: HYDROCORTISONE HC 2.5% CRM 30GM TUBE EXT SCH ×4 (09:05→19:26)
[2020-09-21] MEDS: amLODIPine BESYLATE 5 MG TAB PO SCH (09:06)
[2020-09-21] MEDS: METOPROLOL TARTRATE 100 MG TAB PO SCH ×2 (09:07→19:24)
[2020-09-21] MEDS: DORZOLAMIDE/TIMOLOL 22.3/6.8MG/ML 10 ML BTL OP SCH ×2 (09:08→19:26)
[2020-09-21] MEDS: EPLERENONE 25MG PO SCH (09:08)
[2020-09-21] MEDS ORDERED: IRON SUCROSE 200 MG in 0.9 % SODIUM CHLORIDE 100 ML IV ONE (10:00)
[2020-09-21] MEDS: FUROSEMIDE 40 MG TAB PO SCH ×2 (11:37→19:25)
[2020-09-21 12:12] LABS: INR 1.4 (0.9-1.1); Prothrombin Time 13.8 Seconds (9.0-12.0)
--- NOTE | 2020-09-21 12:55 | Hospitalist Progress Note ---
Date of Service September 21, 2020 Assessment & Plan (1) Chronic hyponatremia: acute on chronic. baseline Na level upper 120s/low 130s. now 121. hyponatremia dates back many years. right heart failure, cardiac cirrhosis, and diuretics all contribute. urine Na <5 c/w solute deficiency. Dr Roca from nephrology consulted; appreciate his assistance. he has ordered 2gm BID of NaCL tabs. continue lasix 40mg BID. check TSH in am. (2) Cholecystoduodenal fistula: ARTIFICIAL -- Cholecystoduodenostomy Axios Stent placed 05/30. This was placed due to concern that patient would not tolerate a cholecystectomy due to numerous comorbidities. POD #2 - s/p EGD with repositioning of stent and break-up of 2 large gallstones. APPRECIATE Dr Mendoza's expertise. Advance to regular diet today. Tolerating diet. Continue IV cipro/flagyl as per GI recommendations. (3) Gallstones: Known. s/p breakup and removal of 2 large stones via EGD on Tuesday by [facility], Dr Mendoza. Patient will have repeat EGD in a few weeks to remove any remaining stones. See above in "cholecystoduodenal fistula." (4) Duodenal ulcer: As seen on EGD. HOLD asa. Resumed coumadin - H/H stable. Remains on heparin bridge. Continue PO protonix BID. (5) Sacral decubitus ulcer, stage III: Pressure ulcer of left lateral sacral region, stage 3 - present on admission. Wound care consult and recs appreciated. (6) Diarrhea: Had been frequent leading up to this admission but now none in 3-4+ days. If diarrhea recurs - send for c.diff, etc. 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 Mild body wall edema and LE edema. Continue diuretics. (8) Hypokalemia: replaced and resolved BMP am (9) Chronic diastolic heart failure: Appreciate cardiology consultation and recs. Has LE edema and probable ascites or body wall edema -- resume lasix today. (10) Pulmonary hypertension: Severe. With resulting right-sided CHF and chronic hypoxic respiratory failure. (11) Adult hypothyroidism: TSH 03/2020 wnl Cont synthroid w/o changes Recheck TSH am (12) Atrial fibrillation: Typically on coumadin for anticoagulation. Resumed yesterday. Heparin bridge given [facility] valve. (13) H/O mechanical aortic valve replacement: Chronic coumadin daily INR cont heparin bridge (14) HTN (hypertension): controlled (15) Chronic right-sided CHF (congestive heart failure): continue metoprolol tartrate 100mg BID holding losartan 50mg BID continue lasix 40mg BID (16) External hemorrhoid: anusol cream QID keep stool soft (17) Chronic respiratory failure with hypoxia: stable on 2-3 LC NC daughter updated extensively by phone - 09/19/20 and 09/21/20 dispo - [facility] after discharge if possible PT, OT Admission and Anticipated Discharge Date Admission Date: September 18, 2020 Subjective when I initially walked in the room she said she was doing "terrible." when I asked her specifically what was wrong she denied any physical complaints - she was referring to simply being in the hospital. denied any abd pain, nausea, vomiting or GI intolerance of her meals. denied any changes in her baseline chronic lung disease. reported feeling tired. tele overnight - again pacing. Review of Systems Constitutional: + fatigue; no fever and no chills Respiratory: no cough Cardiovascular: no chest pain Gastrointestinal: + abdominal pain; no nausea, no vomiting and no diarrhea/loose stools Physical Exam Constitutional: + frail appearing; no acute distress ENMT: Mouth: + oropharynx abnormality (evidence of trauma from recent ETT much improved toda) Respiratory: no respiratory distress Auscultation: + rales (diffuse, soft, dry sounding b/l ); no diminished lung sounds and no wheezes Cardiovascular: Rate/Rhythm: regular rate and regular rhythm Heart Sounds: normal S1, normal S2 (Mechanical AV closure sound) and + murmur (2/6 LLSB) Vessels: + JVD, posterior tibial pulses present and dorsalis pedis pulses present Extremities: + edema (2+ b/l extending to the knees ) Gastrointestinal (Abdomen): Inspection/Auscultation: + abdomen distended (body wall edema) Percussion/Palpation: abdomen nontender, no guarding and no hepatosplenomegaly Psychiatric: Orientation: alert, oriented to person and oriented to place; + not oriented to time Results & Data Results & Data ([facility]) Vital Signs (Past 12 Hours) Vital Signs Temp Pulse Pulse Resp BP BP Pulse Ox 09/21/20 11:57 36.5 C 63 20 117/60 93 09/21/20 07:05 36.7 C 62 19 113/60 94 09/21/20 04:02 36.8 C 60 20 108/64 90 Laboratory Results Laboratory Results - last 24 hr 09/20/20 09/20/20 09/20/20 12:11 14:12 19:31 WBC RBC Hgb Hct MCV MCH MCHC RDW Std Deviation RDW Coeff of Sia Plt Count MPV PT INR APTT > 139.0 H* 63.8 H* PTT Ratio > 5.3 2.4 Sodium Potassium Chloride Carbon Dioxide Anion Gap BUN Creatinine Est Cr Clr Drug Dosing Est GFR ( Amer) Est GFR (Non-Af Amer) BUN/Creatinine Ratio Glucose Osmolality Calcium Urine Osmolality 377 L Ur Random Sodium 09/20/20 09/20/20 09/21/20 19:31 21:24 06:33 WBC RBC Hgb Hct MCV MCH MCHC RDW Std Deviation RDW Coeff of Sia Plt Count MPV PT INR APTT 93.5 H* PTT Ratio 3.6 Sodium Potassium Chloride Carbon Dioxide Anion Gap BUN Creatinine Est Cr Clr Drug Dosing Est GFR ( Amer) Est GFR (Non-Af Amer) BUN/Creatinine Ratio Glucose Osmolality 255 L Calcium Urine Osmolality Ur Random Sodium < 5 09/21/20 09/21/20 09/21/20 06:33 06:33 06:33 WBC 6.81 RBC 4.20 Hgb 10.2 L Hct 32.5 L MCV 77.4 L MCH 24.3 L MCHC 31.4 L RDW Std Deviation 58.7 H RDW Coeff of Sia 20.7 H Plt Count 124 L MPV 9.6 PT INR APTT 105.0 H* PTT Ratio 4.0 Sodium 122 L Potassium 4.9 Chloride 91 L Carbon Dioxide 26 Anion Gap 5.0 BUN 8 Creatinine 0.49 L Est Cr Clr Drug Dosing 79.2 Est GFR ( Amer) 100.8 Est GFR (Non-Af Amer) 87.0 BUN/Creatinine Ratio 15.3 Glucose 96 Osmolality Calcium 8.3 L Urine Osmolality Ur Random Sodium 09/21/20 09/21/20 11:43 11:43 WBC RBC Hgb Hct MCV MCH MCHC RDW Std Deviation RDW Coeff of Sia Plt Count MPV PT 13.8 H INR 1.4 H APTT PTT Ratio Sodium 121 L Potassium Chloride Carbon Dioxide Anion Gap BUN Creatinine Est Cr Clr Drug Dosing Est GFR ( Amer) Est GFR (Non-Af Amer) BUN/Creatinine Ratio Glucose Osmolality Calcium Urine Osmolality Ur Random Sodium PG Care Time/CCT Total # of Minutes Spent Total Time Spent with Patient: Total time spent is greater than 50% in coordination of care (as documented) at patient's floor/unit and/or counseling patient: Coding Level of Care Code 33440 Subseq Hosp Care Lvl 3 Diagnoses Chronic hyponatremia E87.1 Cholecystoduodenal fistula K82.3 Gallstones K80.20 Duodenal ulcer K26.9 Sacral decubitus ulcer, stage III L89.153 Diarrhea R19.7 Diarrhea type: unspecified type Cirrhosis K74.60 Ascites presence: unspecified Hepatic cirrhosis type: unspecified hepatic cirrhosis Hypokalemia E87.6 Chronic diastolic heart failure I50.32 Pulmonary hypertension I27.20 Adult hypothyroidism E03.9 Atrial fibrillation I48.91 Atrial fibrillation type: unspecified H/O mechanical aortic valve replacement Z95.2 HTN (hypertension) I10 Hypertension type: essential hypertension Chronic right-sided CHF (congestive heart failure) I50.812 External hemorrhoid K64.4 Chronic respiratory failure with hypoxia J96.11 (1) Atrial fibrillation Atrial fibrillation type: unspecified Qualified Code(s): I48.91 - Unspecified atrial fibrillation (2) Diarrhea Diarrhea type: unspecified type Qualified Code(s): R19.7 - Diarrhea, unspecified (3) Cirrhosis Ascites presence: unspecified Hepatic cirrhosis type: unspecified hepatic cirrhosis Qualified Code(s): K74.60 - Unspecified cirrhosis of liver (4) HTN (hypertension) Hypertension type: essential hypertension Qualified Code(s): I10 - Essential (primary) hypertension
[2020-09-21] MEDS: CEROVITE ADV FORMULA TAB PO SCH (13:13)
[2020-09-21 14:35] LABS: Partial Thromboplastin Time 106.2 Seconds (21.0-31.0)
--- NOTE | 2020-09-21 15:38 | Nephrology Consultation ---
Date of Consultation September 21, 2020 Assessment & Plan (1) Hyponatremia: * Hypoosmolar hyponatremia which is acute on chronic and of moderate severity. 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 Goal of therapy is not to correct serum sodium back to normal but rather to keep serum sodium 120 mmol/L or above to avoid neurologic complications such as weakness or seizures . Mainstay of therapy is 1 - 1.5 L oral fluid restriction. Aquaretics are contraindicated in this case due to cirrhosis (hepatic metabolism). Will order oral fluid restriction and provide NaCl 4 g/day to help correct the acute component of patient's hyponatremia. Continue low dose Furosemide to help mobilize LE and body wall edema. 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 Mo is an 89 year old white female who is seen at the request of Dr. Pacheco for evaluation of hyponatremia. Medical records in the EMR were reviewed today and are summarized as follows: Ms. Mo has chronic interstitial lung disease resulting in severe pulmonary hypertension and R heart failure. She is on O2 therapy at home. Her medical history is also significant for chronic hyponatremia w/ serum sodium 125 - 130 mmol/L, mechanical AVR (chronic warfarin therapy), atrial fibrillation and gallstones s/p spincterotomy with CBD stenting. Ms. Mo was admitted to [facility] for evaluation abdominal discomfort and diarrhea. She was found to have migration of the CBD stent into the small intestine. Gastroenterology was able to remove the stent, remove CBD gallstones and place a new stent. Ms. Mo is now symptomatically improved but her serum sodium has dropped from 125 to 120 mmol/L. At the time of my assessment she was A&Ox3 and without any neurologic complaints such as CUELLO or weakness. Laboratory studies revealed serum Na 120 mmol/L, urine SPGR 1.042, urine osmolality 377, urine Na < 5. I&O reveal net + 1.2 L since admission. 09/[address] - no hydronephrosis, CMG w/ mild pulmonary edema, body wall edema, cirrhotic liver. 09/18 echocardiogram - normal LVEF w/ mod LVH, mod/severe RV dilation w/ reduced RV function and severly dilated RA. RVSP 60 mmHg. Allergies Allergy/AdvReac Type Severity Reaction Status Date / Time Sulfa (Sulfonamide Allergy Intermediate HIVES Verified 09/18/20 10:27 Antibiotics) Home Medications Medication Instructions Recorded Confirmed Type furosemide [Lasix] 40 mg PO BID #0 tab 01/17/12 09/18/20 History Centrum Silver Women 1 tab PO DAILY@1200 #0 07/31/13 09/18/20 History aspirin [Aspirin Low Dose] 81 mg PO QAM #0 07/31/13 09/18/20 History levothyroxine 75 mcg PO QAM #0 tab 07/31/13 09/18/20 History warfarin 1.5 mg PO 3XWK #0 tab 07/31/13 09/18/20 History Oxygen Home #0 09/10/13 02/13/19 History lorazepam [Ativan] 0.5 mg PO BID PRN #0 tab 09/10/13 09/18/20 History metoprolol tartrate 100 mg PO BID #0 tab 09/10/13 09/18/20 History amlodipine [Norvasc] 5 mg PO QAM #0 tab 01/16/18 09/18/20 History dorzolamide-timolol 1 drp OPHTHALMIC (EYE) AMPM 08/12/19 09/18/20 History losartan 50 mg PO AMPM 08/12/19 09/18/20 History Rhopressa 1 drp OPB PM PRN 03/30/20 09/18/20 History potassium chloride [Klor-Con M20] 20 meq PO TID #90 tab 04/03/20 09/18/20 Rx calcium carbonate [Calcium 500] 0 mg PO DAILY@1200 09/18/20 09/18/20 History cyclosporine [Restasis] 1 drp OPB PM 09/18/20 09/18/20 History eplerenone 25 mg PO DAILY 09/18/20 09/18/20 History hydrocortisone 1 applic TOPICAL BID PRN 09/18/20 09/18/20 History loperamide [Imodium] 2 mg PO Q4H PRN 09/18/20 09/18/20 History magnesium chloride [Slow-Mag] 0 mg PO TID 09/18/20 09/18/20 History warfarin 3 mg PO 4XWK 09/18/20 09/18/20 History Patient History Medical History Adult hypothyroidism Anemia Atrial fibrillation CHF (congestive heart failure) Choledocholithiasis Chronic hyponatremia HTN (hypertension) Pacemaker Pulmonary hypertension severe Thickened endometrium Thyroid disease Vertigo Surgical History Aortic valve replaced H/O mechanical aortic valve replacement History of colonoscopy 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 Status post Mohs surgery Status post placement of cardiac pacemaker Family History Brother Cancer Sister Cancer Social History Smoking Status: Never smoker Tobacco Type: Cigarettes Second Hand Exposure: No; Hx Alcohol Use: No Hx Substance Use: No Preferred Language: Arabic Communication Ability: Effective Outside Sales Associate Required: No Beliefs That Will Affect Care: None marital status: / Current Living Situation: Alone How many Children do You have: 2 Other Information That Helps Us Care for You: No Feels Safe at Home: Yes Safety Concerns: Feels Safe At This Time Assistive Devices: Denture - Upper, Denture - Lower, Glasses and Oxygen - Continuous Review of Systems Constitutional: no fever and no weakness Eyes: no problem reported Ear, Nose, Mouth, Throat: no problem reported Respiratory: + dyspnea ((on chronic O2 therapy)) Cardiovascular: no chest pain and no palpitations Gastrointestinal: no abdominal pain, no vomiting and no diarrhea/loose stools Genitourinary: no dysuria and no hematuria Neurologic: no confusion Physical Exam Constitutional: + frail appearing; no acute distress Eyes: PERRL, conjunctivae normal, anicteric sclerae ENMT: Mouth: oral mucous membranes not dry Respiratory: Auscultation: + rales Cardiovascular: Rate/Rhythm: + irregularly irregular Vessels: + JVD Extremities: + edema (2+ pretibial pitting edema) Gastrointestinal (Abdomen): Inspection/Auscultation: normal bowel sounds Percussion/Palpation: abdomen soft; abdomen nontender and no guarding Neurologic: not confused Results & Data ([facility]) Vital Signs (Past 12 Hours) Vital Signs Temp Pulse Pulse Resp BP BP Pulse Ox 09/21/20 15:19 36.7 C 62 19 123/56 L 94 09/21/20 11:57 36.5 C 63 20 117/60 93 09/21/20 07:05 36.7 C 62 19 113/60 94 09/21/20 04:02 36.8 C 60 20 108/64 90 Laboratory Tests 09/18/20 09/18/20 09/19/20 08:55 16:20 06:01 WBC Hgb Hct Plt Count Sodium 127 L 132 L Urine Color Yellow Urine Appearance Turbid A Ur Specific [place] 1.042 H Urine Protein Negative Urine Glucose (UA) Negative Urine Blood Negative Urine Nitrite Negative Urine WBC (Auto) 1-5 Urine RBC (Auto) 0-4 U Hyaline Cast (Auto) 1-5 Urine Osmolality Ur Random Sodium 09/20/20 09/20/20 09/20/20 05:52 19:31 19:31 WBC Hgb Hct Plt Count Sodium 125 L D Urine Color Urine Appearance Ur Specific [place] Urine Protein Urine Glucose (UA) Urine Blood Urine Nitrite Urine WBC (Auto) Urine RBC (Auto) U Hyaline Cast (Auto) Urine Osmolality 377 L Ur Random Sodium < 5 09/21/20 09/21/20 09/21/20 06:33 06:33 11:43 WBC 6.81 Hgb 10.2 L Hct 32.5 L Plt Count 124 L Sodium 122 L 121 L Urine Color Urine Appearance Ur Specific [place] Urine Protein Urine Glucose (UA) Urine Blood Urine Nitrite Urine WBC (Auto) Urine RBC (Auto) U Hyaline Cast (Auto) Urine Osmolality Ur Random Sodium PG Care Time/CCT Total # of Minutes Spent Total Time Spent with Patient: Total time spent is greater than 50% in coordination of care (as documented) at patient's floor/unit and/or counseling patient: Coding Level of Care Code 22605 Inpt Consult Level 5 Diagnoses Hyponatremia E87.1 Cirrhosis K74.60 Hepatic cirrhosis type: unspecified hepatic cirrhosis Ascites presence: unspecified Cholecystitis K81.9 (1) Cirrhosis Hepatic cirrhosis type: unspecified hepatic cirrhosis Ascites presence: unspecified Qualified Code(s): K74.60 - Unspecified cirrhosis of liver
[2020-09-21] MEDS ORDERED: WARFARIN SOD 4 MG TAB PO ONE (16:00)
[2020-09-21] MEDS: SODIUM CHLORIDE 1 GM TABLET PO SCH ×2 (17:48→19:25)
[2020-09-21] MEDS: RESTASIS~ORDER AWAITING ACTION SCH ×2 (19:14→23:58)
[2020-09-21 21:00] LABS: Partial Thromboplastin Ratio 2.2
[2020-09-21] MEDS: HEPARIN SODIUM/DEXTROSE 25,000 UNITS/500 ML BAG IV SCH (21:43)
[2020-09-22] MEDS: metroNIDAZOLE 500 MG/100 ML BAG IV SCH (05:16)
[2020-09-22] MEDS: LEVOTHYROXINE SODIUM 75 MCG TABLET PO SCH (05:17)
[2020-09-22 07:15] LABS: Hematocrit (blood only) 33.1 % (37-47); Hemoglobin 10.5 g/dL (12.0-16.0); Mean Corpuscular Hemoglobin 24.4 pg (25-34); Mean Corpuscular Hgb Conc 31.7 g/dL (32-36); Platelet Count 103 K/uL (130-400); RDW Coefficient of Variation 20.7 % (11.5-14.5); White Blood Count 4.17 K/uL (4.8-10.8)
[2020-09-22 07:36] LABS: INR 1.5 (0.9-1.1); Partial Thromboplastin Ratio 1.9; Prothrombin Time 14.6 Seconds (9.0-12.0)
[2020-09-22 07:41] LABS: Partial Thromboplastin Time 49.2 Seconds (21.0-31.0)
[2020-09-22 07:57] LABS: BUN Creatinine Ratio 14.2 (10-20); Calcium 8.3 mg/dl (8.5-10.1); Creatinine Clr Calc Pharmacy 62.9 ml/min; Est GFR (African American) 92.8; Est GFR (Non-African American) 80.1; Potassium 3.3 mmol/L (3.5-5.1)
[2020-09-22 08:04] LABS: Thyroid Stimulating Hormone 4.16 uIu/ml (0.300-4.500)
[2020-09-22] MEDS: CIPROFLOXACIN / D5W 400 MG/200 ML BAG IV SCH (08:33)
[2020-09-22] MEDS: DORZOLAMIDE/TIMOLOL 22.3/6.8MG/ML 10 ML BTL OP SCH ×2 (08:33→19:51)
[2020-09-22] MEDS: HYDROCORTISONE HC 2.5% CRM 30GM TUBE EXT SCH ×4 (08:34→19:53)
[2020-09-22] MEDS: EPLERENONE 25MG PO SCH (08:35)
[2020-09-22] MEDS: METOPROLOL TARTRATE 100 MG TAB PO SCH ×2 (08:35→19:52)
[2020-09-22] MEDS: FUROSEMIDE 40 MG TAB PO SCH (08:35)
[2020-09-22] MEDS: SODIUM CHLORIDE 1 GM TABLET PO SCH (08:36)
[2020-09-22] MEDS: amLODIPine BESYLATE 5 MG TAB PO SCH (08:36)
[2020-09-22] MEDS: PANTOprazole 40 MG TAB PO SCH ×2 (08:36→19:52)
[2020-09-22] MEDS: SUCRALFATE 1 GM TAB PO SCH ×4 (08:39→19:50)
[2020-09-22] MEDS: POTASSIUM CHLORIDE CRTAB 20 MEQ TABCR PO SCH ×2 (08:40→19:52)
--- NOTE | 2020-09-22 10:22 | Nephrology Progress Note ---
Date of Service September 22, 2020 Assessment & Plan (1) Hyponatremia: * Hypoosmolar hyponatremia which is acute on chronic and of moderate severity. Currently no neurologic sequela * Hyponatremia is due to impaired renal perfusion associated w/ R heart failure (interstitial lung disease and severe pulmonary hypertension). Serum sodium had been 125 - 130 mmol/L as outpatient * Serum sodium has dropped during hospitalization. Patient has been receiving hypotonic IV solutions (~ 1200 cc/day). Recommend changing all medications to oral administration since abdominal discomfort has resolved * Hyponatremia has improved to > 120 mmol/L following NaCl tablets administered yesterday. Will stop oral NaCl * Management of hyponatremia in the setting of R heart failure due to pulmonary hypertension is difficult and portends a poor prognosis. Goal of therapy is not to correct serum sodium back to normal but rather to keep serum sodium 120 mmol/L or above to avoid neurologic complications such as weakness or seizures. Mainstay of therapy is 1 - 1.5 L oral fluid restriction. Aquaretics are contraindicated in this case due to cirrhosis (hepatic metabolism). Continue oral fluid restriction and continue low dose Furosemide to help mobilize LE and body wall edema. 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 Mo was seen & examined in her hospital room this morning. She reports that her abdominal pain has resolved. She tolerated oral NaCl tablets without nausea. She remains on several IV medications all of which are in D5W. IV intake was 1200 cc last 24 hours Review of Systems Constitutional: no fever Eyes: no worsening vision Respiratory: + dyspnea (on chronic O2 therapy) Cardiovascular: no chest pain Gastrointestinal: no abdominal pain Neurologic: no confusion Physical Exam Constitutional: + frail appearing; no acute distress Eyes: PERRL, conjunctivae normal, anicteric sclerae ENMT: Mouth: oral mucous membranes not dry Respiratory: Auscultation: lungs clear to auscultation bilaterally Cardiovascular: Rate/Rhythm: + irregularly irregular Vessels: + JVD Ext remities: + edema (2+ pretibial pitting edema) Gastrointestinal (Abdomen): Inspection/Auscultation: normal bowel sounds Percussion/Palpation: abdomen soft; abdomen nontender and no guarding Neurologic: not confused Results & Data ([facility]) Vital Signs (Past 12 Hours) Vital Signs Temp Pulse Pulse Pulse Resp BP BP 09/22/20 07:18 36.6 C 60 19 134/66 09/22/20 02:44 36.5 C 60 18 123/52 L 09/22/20 00:02 66 09/21/20 23:58 36.5 C 65 19 119/67 Pulse Ox 09/22/20 07:18 93 09/22/20 02:44 91 09/22/20 00:02 09/21/20 23:58 92 Laboratory Tests 09/22/20 06:57 TSH 4.160 PG Care Time/CCT Total # of Minutes Spent Total Time Spent with Patient: Total time spent is greater than 50% in coordination of care (as documented) at patient's floor/unit and/or counseling patient: Coding Level of Care Code 00838 Subseq Hosp Care Lvl 3 Diagnoses Hyponatremia E87.1 Cirrhosis K74.60 Hepatic cirrhosis type: unspecified hepatic cirrhosis Ascites presence: unspecified Cholecystitis K81.9 (1) Cirrhosis Hepatic cirrhosis type: unspecified hepatic cirrhosis Ascites presence: unspecified Qualified Code(s): K74.60 - Unspecified cirrhosis of liver
[2020-09-22] MEDS ORDERED: FUROSEMIDE 40 MG in SYRINGE 0 ML IV STA (10:40)
--- NOTE | 2020-09-22 10:42 | Cardiology Progress Note ---
Date of Service September 22, 2020 Assessment & Plan (1) Abdominal pain: Patient is a complex 89-year-old frail female with multiple underlying cardiac issues as outlined below. She presents now with abdominal pain and diarrhea possible displaced Axios stent placed for cholelithiasis May 2020 and prohibitively high surgical risk . 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 Patient underwent repositioning of Axios stent uneventfully. Anticoagulation resumed with IV heparin Plan: Agree with therapy as already initiated for hyponatremia including minimizing IV fluids. In review of records patient was recently started on eplerenone which per past history has resulted in increasing hyponatremia will hold at this time (2) Diarrhea: (3) Anemia: (4) Acute on chronic diastolic (congestive) heart failure: (5) Hyponatremia: (6) Atrial fibrillation: Patient with indwelling single-chamber pacemaker normal device function last interrogation June 2020, 97% ventricular battery life of greater than 3-year (7) H/O mechanical aortic valve replacement: (8) Pulmonary hypertension: As noted chest x-ray and prior multiple CTs demonstrate chronic interstitial changes consistent with intraparenchymal disease and likely elevated left heart pressure with resultant severe pulmonary pretension Admission and Anticipated Discharge Date Admission Date: September 18, 2020 Subjective Patient seen and examined, chart, medications, telemetry reviewed. "About the same" no acute complaints. Is being treated for hyponatremia multifactorial as well outlined INR still not therapeutic Physical Exam Eyes: PERRL, conjunctivae normal, anicteric sclerae ENMT: external ear and nose normal, oropharynx normal Neck: trachea midline, no thyromegaly Respiratory: Auscultation: + crackles Cardiovascular: Rate/Rhythm: regular rhythm (Paced) Heart Sounds: + murmur (Grade 2/6 systolic no diastolic) Palpation: normal PMI Vessels: + JVD Extremities: + edema (1-2+ chronic stasis) Gastrointestinal (Abdomen): normal bowel sounds, soft, nontender, no hepa tosplenomegaly Results & Data ([facility]) Vital Signs (Past 12 Hours) Vital Signs Temp Pulse Pulse Pulse Resp BP BP 09/22/20 07:18 36.6 C 60 19 134/66 09/22/20 02:44 36.5 C 60 18 123/52 L 09/22/20 00:02 66 09/21/20 23:58 36.5 C 65 19 119/67 Pulse Ox 09/22/20 07:18 93 09/22/20 02:44 91 09/22/20 00:02 09/21/20 23:58 92 Laboratory Results Laboratory Results - last 24 hr 09/21/20 09/21/20 09/21/20 11:43 11:43 13:56 WBC RBC Hgb Hct MCV MCH MCHC RDW Std Deviation RDW Coeff of Sia Plt Count MPV PT 13.8 H INR 1.4 H APTT 106.2 H* PTT Ratio 4.0 Sodium 121 L Potassium Chloride Carbon Dioxide Anion Gap BUN Creatinine Est Cr Clr Drug Dosing Est GFR ( Amer) Est GFR (Non-Af Amer) BUN/Creatinine Ratio Glucose Calcium TSH 09/21/20 09/22/20 09/22/20 20:18 06:57 06:57 WBC 4.17 L RBC 4.30 Hgb 10.5 L Hct 33.1 L MCV 77.0 L MCH 24.4 L MCHC 31.7 L RDW Std Deviation 58.0 H RDW Coeff of Sia 20.7 H Plt Count 103 L MPV 9.0 PT 14.6 H INR 1.5 H APTT 58.0 H* 49.2 H* PTT Ratio 2.2 1.9 Sodium Potassium Chloride Carbon Dioxide Anion Gap BUN Creatinine Est Cr Clr Drug Dosing Est GFR ( Amer) Est GFR (Non-Af Amer) BUN/Creatinine Ratio Glucose Calcium TSH 09/22/20 06:57 WBC RBC Hgb Hct MCV MCH MCHC RDW Std Deviation RDW Coeff of Sia Plt Count MPV PT INR APTT PTT Ratio Sodium 127 L Potassium 3.3 L D Chloride 93 L Carbon Dioxide 28 Anion Gap 6.0 BUN 9 Creatinine 0.63 Est Cr Clr Drug Dosing 62.9 Est GFR ( Amer) 92.8 Est GFR (Non-Af Amer) 80.1 BUN/Creatinine Ratio 14.2 Glucose 101 H Calcium 8.3 L TSH 4.160 Medications Administered Current Medications Amlodipine Besylate (Amlodipine Besylate 5 Mg Tab) 5 mg PO QAM [facility] Stop: 10/19/20 08:59 Last Admin: 09/22/20 08:36 Dose: 5 mg Documented by: Aspirin (Aspirin 81 Mg Ectab) 81 mg PO QAM [facility] Stop: 10/18/20 14:29 Last Admin: 09/18/20 15:56 Dose: Not Given Documented by: Ciprofloxacin (Ciprofloxacin 500 Mg Tab) 500 mg PO BID [facility] Stop: 09/28/20 20:59 Nystatin 30 ml/ Dexamethasone 3.75 mg/ Diphenhydramine HCl 300 mg/ Sucrose 45 ml/Microcrystalline Cellulose 45 ml/ BARCODE IDENTIFIER 1 ea 0 ml PO Q6H [facility] Stop: 10/20/20 19:59 Last Admin: 09/22/20 03:00 Dose: 5 ml Documented by: Dorzolamide/Timolol (Dorzolamide/Timolol 22.3/6.8mg/Ml 10 Ml Btl) 1 drops OP BID [facility] Stop: 10/18/20 14:29 Last Admin: 09/22/20 08:33 Dose: 1 drops Documented by: Enoxaparin Sodium (Enoxaparin 1 Mg/Kg) 75 mg 1 mg/kg (75 mg) SC Q12H [facility] Stop: 10/22/20 10:44 Eplerenone (Eplerenone 25mg) 1 ea PO DAILY [facility] Stop: 10/19/20 08:59 Last Admin: 09/22/20 08:35 Dose: 1 ea Documented by: Hydrocortisone (Hydrocortisone Hc 2.5% Crm 30gm Tube) 1 appln EXT QID [facility]ER Stop: 10/20/20 16:59 Last Admin: 09/22/20 08:34 Dose: 1 appln Documented by: Furosemide 40 mg/ Syringe 4 mls @ 4 mls/min IV Q12 [facility] Stop: 10/22/20 20:59 Furosemide 40 mg/ Syringe 4 mls @ 4 mls/min IV ONE STA Stop: 09/22/20 10:41 Levothyroxine Sodium (Levothyroxine Sodium 75 Mcg Tablet) 75 mcg PO DAILYBB [facility] Stop: 10/18/20 14:29 Last Admin: 09/22/20 05:17 Dose: 75 mcg Documented by: Lorazepam (Lorazepam 0.5 Mg Tab) 0.5 mg PO BID PRN PRN Reason: Anxiety Stop: 10/18/20 14:07 Losartan Potassium (Losartan Potassium 50 Mg Tab) 50 mg PO BID [facility] Stop: 10/18/20 14:29 Last Admin: 09/21/20 09:04 Dose: 50 mg Documented by: Metoprolol Tartrate (Metoprolol Tartrate 100 Mg Tab) 100 mg PO BID [facility] Stop: 10/18/20 14:29 Last Admin: 09/22/20 08:35 Dose: 100 mg Documented by: Metronidazole (Metronidazole 500 Mg Tab) 500 mg PO BID [facility] Stop: 09/28/20 20:59 Miscellaneous (Restasis~Order Awaiting Action) 1 ea N/A QS [facility] Stop: 10/18/20 15:59 Last Admin: 09/21/20 23:58 Dose: 1 ea Documented by: Multivitamins/Minerals (Cerovite Adv Formula Tab) 1 tab PO DAILY@1200 [facility] Stop: 10/19/20 11:59 Last Admin: 09/21/20 13:13 Dose: 1 tab Documented by: Rhopressa 0.02% ~ Non-Formulary Patient's Own Med 1 ea OP HS PRN PRN Reason: OCULAR HYPERTENSION Stop: 10/19/20 08:52 Pantoprazole Sodium (Pantoprazole 40 Mg Tab) 40 mg PO BID [facility] Stop: 10/20/20 20:59 Last Admin: 09/22/20 08:36 Dose: 40 mg Documented by: Potassium Chloride (Potassium Chloride Crtab 20 Meq Tabcr) 20 meq PO BID [facility] Stop: 10/22/20 08:59 Last Admin: 09/22/20 08:40 Dose: 20 meq Documented by: Sucralfate (Sucralfate 1 Gm Tab) 1 gm PO ACHS [facility] Stop: 10/22/20 08:29 Last Admin: 09/22/20 08:39 Dose: 1 gm Documented by: (1) Abdominal pain Abdominal location: generalized Qualified Code(s): R10.84 - Generalized abdominal pain (2) Diarrhea Diarrhea type: unspecified type Qualified Code(s): R19.7 - Diarrhea, unspecified (3) Atrial fibrillation Atrial fibrillation type: unspecified Qualified Code(s): I48.91 - Unspecified atrial fibrillation
--- NOTE | 2020-09-22 11:42 | XRay Report ---
XR chest 1V portable CLINICAL HISTORY: Congestive heart failure. COMPARISON STUDY: Chest radiograph September 18, 2020. FINDINGS: Note is made of a left subclavian pacer, median sternotomy wires and a prosthetic aortic va lve. Cardiomegaly is unchanged. There are small bilateral pleural effusions. Left basilar airspace op acity has increased. Pulmonary edema has slightly improved. There is no pneumothorax. Patient is rota roshan. IMPRESSION: 1. Increase in left basilar opacity which may reflect consolidation or atelectasis. Radiographic foll ow-up is recommended. 2. Mild pulmonary edema, slightly improved since prior exam. 3. Small bilateral pleural effusions. ACT 112: Negative or not required by law. Electronically signed by: Stephane Mayer M.D. 09/22/2020 11:40 AM
[2020-09-22] MEDS: ENOXAPARIN 80 MG/0.8 ML SYR SC SCH ×2 (12:49→21:30)
[2020-09-22] MEDS: CEROVITE ADV FORMULA TAB PO SCH (12:50)
[2020-09-22] MEDS ORDERED: FUROSEMIDE 40 MG/4 ML VIAL IV ONE (12:52)
--- NOTE | 2020-09-22 13:04 | Hospitalist Progress Note ---
Date of Service September 22, 2020 Assessment & Plan (1) Chronic hyponatremia: acute on chronic. Hypoosmolar state due to a combination of CHF and cirrhosis. Nephrology consultation noted and appreciated. Currently on fluid restriction. She needs free water diuresis and serial lab studies. Oral Lasix switched to IV dosing. Will minimize IV fluids by switching IV antibiotics to oral dosing, switch heparin drip to Lovenox subcu 1 mg/kg every 12 hours. She is on salt tabs but will have to determine if this is going to aggravate the CHF. 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 This was placed due to concern that patient would not tolerate a cholecystectomy due to numerous comorbidities. POD #3 - s/p EGD with repositioning of stent and break-up of [address] Mendoza's expertise. Continue cipro/flagyl as per GI recommendations. Switched to oral dosing today, September 22. (3) Gallstones: Known. s/p breakup and removal of 2 large stones via EGD on 09/19 by [facility], Dr Mendoza. Patient will have repeat EGD in a few weeks to remove any remaining stones. (4) Duodenal ulcer: As seen on EGD. HOLD asa. Resumed coumadin - H/H stable. Remains on heparin bridge. Continue PO protonix BID. Added Carafate today, September 22 (5) Sacral decubitus ulcer, stage III: Pressure ulcer of left lateral sacral region, stage 3 - present on ad mission. Wound care consult and recs appreciated. (6) Diarrhea: Had been frequent leading up to this admission but now none in 3-4+ days. If diarrhea recurs - send for c.diff, etc. 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 Mild body wall edema and LE edema. Continue diuretics. (8) Hypokalemia: Replacement therapy. Serial lab studies (9) Chronic diastolic heart failure: Appears to be acute on chronic. Parenteral Lasix diuresis. Monitor intake and output. Serial lab studies. Serial chest x-ray. (10) Pulmonary hypertension: Severe. With resulting right-sided CHF and chronic hypoxic respiratory failure. She appears to have chronic cor pulmonale (11) Adult hypothyroidism: TSH 03/2020 wnl Cont synthroid w/o changes (12) Atrial fibrillation: Typically on coumadin for anticoagulation. Lovenox bridge. (13) H/O mechanical aortic valve replacement: Chronic coumadin daily INR cont Lovenox bridge until INR therapeutic (14) HTN (hypertension): controlled (15) Chronic right-sided CHF (congestive heart failure): continue metoprolol tartrate 100mg BID holding losartan 50mg BID continue lasix 40mg BID (16) External hemorrhoid: anusol cream QID keep stool soft (17) Chronic respiratory failure with hypoxia: stable on 2-3 LC NC dispo - [facility] after discharge if possible . Continue PT, OT Admission and Anticipated Discharge Date Admission Date: September 18, 2020 Subjective Alert and oriented but clinically she has acute exacerbation of chronic diastolic CHF. Clinical exam is consistent with CHF and chest x-ray continues to show evidence of pulmonary edema. Oral Lasix switched to parenteral route. IV antibiotics switched to oral dosing. Heparin drip switched to Lovenox 1 mg/kg subcutaneously every 12 hours. This will help limit fluid intake. Potassium replacement underway. Sodium is improving with fluid restriction and should further improve with diuresis. Serum osmolarity is quite low at 255 which is not surprising considering her CHF and underlying cirrhosis. Appreciate nephrology consultation and recommendations. Postoperative day 2 after EGD and gallstone intervention. She has a known cholecystoduodenal stent. Review of Systems Review of Systems: All systems reviewed & are unremarkable except as noted in HPI & below Physical Exam Physical Exam: General-alert and oriented x3, no fevers, no chills HEENT-head atraumatic and normocephalic, TMs intact bilaterally, pupils equal and reactive to light, extraocular muscles intact Neck-no lymphadenopathy or thyromegaly, trachea midline Chest-bilateral inspiratory rales. Dullness noted at both bases. No wheezing Cardiac-regular rate and rhythm, normal S1 and S2 Abdomen-normal bowel sounds, nontender, no hepatosplenomegaly Extremities-no cyanosis, clubbing, or edema Neuro-cranial nerves II through XII intact, motor and sensory function within normal limits, strength symmetrical with generalized weakness, no focal deficits Psych-normal affect, normal mood Results & Data Results & Data ([facility]) Vital Signs (Past 12 Hours) Vital Signs Temp Pulse Pulse Resp BP Pulse Ox 09/22/20 11:11 36.6 C 61 19 157/65 H 95 09/22/20 07:18 36.6 C 60 19 134/66 93 09/22/20 02:44 36.5 C 60 18 123/52 L 91 Laboratory Results 09/22/20 06:57 09/22/20 06:57 PG Care Time/CCT Total # of Minutes Spent Total Time Spent with Patient: Total time spent is greater than 50% in coordination of care (as documented) at patient's floor/unit and/or counseling patient: Coding Level of Care Code 01588 Subseq Hosp Care Lvl 3 Diagnoses Chronic hyponatremia E87.1 Cholecystoduodenal fistula K82.3 Gallstones K80.20 Duodenal ulcer K26.9 Sacral decubitus ulcer, stage III L89.153 Diarrhea R19.7 Diarrhea type: unspecified type Cirrhosis K74.60 Hepatic cirrhosis type: unspecified hepatic cirrhosis Ascites presence: unspecified Hypokalemia E87.6 Chronic diastolic heart failure I50.32 Pulmonary hypertension I27.20 Adult hypothyroidism E03.9 Atrial fibrillation I48.91 Atrial fibrillation type: unspecified H/O mechanical aortic valve replacement Z95.2 HTN (hypertension) I10 Hypertension type: essential hypertension Chronic right-sided CHF (congestive heart failure) I50.812 External hemorrhoid K64.4 Chronic respiratory failure with hypoxia J96.11 (1) Diarrhea Diarrhea type: unspecified type Qualified Code(s): R19.7 - Diarrhea, unspecified (2) Cirrhosis Hepatic cirrhosis type: unspecified hepatic cirrhosis Ascites presence: unspecified Qualified Code(s): K74.60 - Unspecified cirrhosis of liver (3) Atrial fibrillation Atrial fibrillation type: unspecified Qualified Code(s): I48.91 - Unspecified atrial fibrillation (4) HTN (hypertension) Hypertension type: essential hypertension Qualified Code(s): I10 - Essential (primary) hypertension
[2020-09-22] MEDS: FUROSEMIDE 40 MG in SYRINGE 0 ML IV SCH (17:54)
[2020-09-22] MEDS: RESTASIS~ORDER AWAITING ACTION SCH ×2 (19:21→19:22)
[2020-09-22] MEDS: metroNIDAZOLE 500 MG TAB PO SCH (19:50)
[2020-09-22] MEDS: CIPROFLOXACIN 500 MG TAB PO SCH (19:51)
[2020-09-23] MEDS: RESTASIS~ORDER AWAITING ACTION SCH ×3 (01:20→14:47)
[2020-09-23] MEDS: LEVOTHYROXINE SODIUM 75 MCG TABLET PO SCH (05:48)
[2020-09-23 07:08] LABS: Basophils # (auto) 0.01 K/uL (0-0.2); Basophils % (auto) 0.2 %; Eosinophils # (auto) 0.06 K/uL (0-0.5); Eosinophils % (auto) 1.3 %; Hemoglobin 10.3 g/dL (12.0-16.0); Immature Granulocytes # (auto) 0.02 K/uL (0.00-0.02); Immature Granulocytes % (auto) 0.4 %; Lymphocytes # (auto) 1.14 K/uL (1.2-3.4); Lymphocytes % (auto) 23.9 %; Mean Corpuscular Hemoglobin 24.5 pg (25-34); Mean Corpuscular Hgb Conc 32.2 g/dL (32-36); Mean Platelet Volume 9.6 fL (7.4-10.4); Monocytes # (auto) 0.48 K/uL (0.11-0.59); Monocytes % (auto) 10.1 %; Neutrophils # (auto) 3.05 K/uL (1.4-6.5); Neutrophils % (auto) 64.1 %; Platelet Count 120 K/uL (130-400); RDW Coefficient of Variation 21.1 % (11.5-14.5); RDW Standard Deviation 57.6 fL (36.4-46.3); Red Blood Count 4.21 M/uL (4.2-5.4); White Blood Count 4.76 K/uL (4.8-10.8)
[2020-09-23 07:21] LABS: INR 1.8 (0.9-1.1); Prothrombin Time 17.2 Seconds (9.0-12.0)
[2020-09-23 07:37] LABS: Anisocytosis Present; Target Cells 1+
[2020-09-23 07:40] LABS: Calcium 8.2 mg/dl (8.5-10.1); Creatinine Clr Calc Pharmacy 79.1 ml/min; Est GFR (African American) 100.2; Est GFR (Non-African American) 86.4; Potassium 3.1 mmol/L (3.5-5.1)
[2020-09-23] MEDS ORDERED: POLYETHYLENE (MIRALAX) 17 GM PACK PO ONE (08:13)
[2020-09-23] MEDS: HEPARIN SODIUM/DEXTROSE 25,000 UNITS/500 ML BAG IV SCH (08:14)
[2020-09-23] MEDS: DORZOLAMIDE/TIMOLOL 22.3/6.8MG/ML 10 ML BTL OP SCH ×2 (08:22→20:33)
[2020-09-23] MEDS: METOPROLOL TARTRATE 100 MG TAB PO SCH ×2 (08:22→20:35)
[2020-09-23] MEDS: FUROSEMIDE 40 MG in SYRINGE 0 ML IV SCH ×2 (08:22→16:09)
[2020-09-23] MEDS: SUCRALFATE 1 GM TAB PO SCH ×4 (08:23→20:33)
[2020-09-23] MEDS: PANTOprazole 40 MG TAB PO SCH ×2 (08:23→20:34)
[2020-09-23] MEDS: CIPROFLOXACIN 500 MG TAB PO SCH ×2 (08:23→20:34)
[2020-09-23] MEDS: metroNIDAZOLE 500 MG TAB PO SCH ×2 (08:23→22:05)
[2020-09-23] MEDS: POTASSIUM CHLORIDE CRTAB 20 MEQ TABCR PO SCH ×4 (08:23→20:36)
[2020-09-23] MEDS: amLODIPine BESYLATE 5 MG TAB PO SCH (08:24)
[2020-09-23] MEDS: HYDROCORTISONE HC 2.5% CRM 30GM TUBE EXT SCH ×4 (08:24→20:33)
--- NOTE | 2020-09-23 10:14 | Nephrology Progress Note ---
Date of Service September 23, 2020 Assessment & Plan (1) Hyponatremia: * Acute hyponatremia corrected w/ NaCl tablets * Chronic hyponatremia due to impaired renal perfusion associated w/ R heart failure (interstitial lung disease and severe pulmonary hypertension). Serum sodium had been 125 - 130 mmol/L as outpatient * IVF have been stopped. This will help limit free water intake. Patient has been converted to oral medications * Management of hyponatremia in the setting of R heart failure due to pulmonary hypertension is difficult and portends a poor prognosis. Goal of therapy is not to correct serum sodium back to normal but rather to keep serum sodium 120 mmol/L or above to avoid neurologic complications such as weakness or seizures. Mainstay of therapy is 1 - 1.5 L oral fluid restriction. Aquaretics are contraindicated in this case due to cirrhosis (hepatic metabolism). Continue oral fluid restriction and continue low dose Furosemide to help mobilize LE and body wall edema. * No further Nephrology evaluation indicated at this time. Will sign off. 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 Mo was seen & examined in her hospital room this morning. She c/o constipation but notes that she is tolerating her diet and able to take oral medications Review of Systems Respiratory: + dyspnea (on chronic O2 therapy) Physical Exam Constitutional: + frail appearing; no acute distress Eyes: PERRL, conjunctivae normal, anicteric sclerae ENMT: Mouth: oral mucous membranes not dry Respiratory: Auscultation: lungs clear to auscultation bilaterally Cardiovascular: Rate/Rhythm: + irregularly irregular Vessels: + JVD Extremities: + edema (2+ pretibial pitting edema) Gastrointestinal (Abdomen): Inspection/Auscultation: normal bowel sounds Percussion/Palpation: abdomen soft; abdomen nontender and no guarding Neurologic: not confused Results & Data ([facility]) Vital Signs (Past 12 Hours) Vital Signs Temp Pulse Pulse Pulse Resp BP Pulse Ox 09/23/20 08:19 37.0 C 60 18 120/65 93 09/23/20 03:51 36.4 C L 62 18 143/63 H 92 09/23/20 00:00 65 Laboratory Tests 09/23/20 09/23/20 06:39 06:39 WBC 4.76 L Hgb 10.3 L Hct 32.0 L Plt Count 120 L Sodium 128 L Potassium 3.1 L Chloride 90 L Carbon Dioxide 34 H BUN 8 Creatinine 0.50 L PG Care Time/CCT Total # of Minutes Spent Total Time Spent with Patient: Total time spent is greater than 50% in coordination of care (as documented) at patient's floor/unit and/or counseling patient: Coding Level of Care Code 49586 Subseq Hosp Care Lvl 3 Diagnoses Hyponatremia E87.1 Cirrhosis K74.60 Hepatic cirrhosis type: unspecified hepatic cirrhosis Ascites presence: unspecified Cholecystitis K81.9 (1) Cirrhosis Hepatic cirrhosis type: unspecified hepatic cirrhosis Ascites presence: unspecified Qualified Code(s): K74.60 - Unspecified cirrhosis of liver
[2020-09-23] MEDS: ENOXAPARIN 80 MG/0.8 ML SYR SC SCH ×2 (11:07→20:34)
[2020-09-23] MEDS: CEROVITE ADV FORMULA TAB PO SCH (11:07)
[2020-09-23] MEDS: SOD PHOSPHATE/SOD BIPHOSPHATE ENEMA 132 ML BTL PR STA ×2 (13:10→15:53)
--- NOTE | 2020-09-23 14:51 | Hospitalist Progress Note ---
Date of Service September 23, 2020 Assessment & Plan (1) Chronic hyponatremia: acute on chronic. Hypoosmolar state due to a combination of CHF and cirrhosis. Nephrology consultation noted and appreciated. Currently on fluid restriction. Continue free water diuresis and serial lab studies. Oral Lasix switched to IV dosing. Minimized IV fluids by switching IV antibiotics to oral dosing, switch heparin drip to Lovenox subcu 1 mg/kg every 12 hours. She is on salt tabs but will have to determine if this is going to aggravate the CHF. 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 This was placed due to concern that patient would not tolerate a cholecystectomy due to numerous comorbidities. POD #4 - s/p EGD with repositioning of stent and break-up of 2 large gallstones. Apprec[address] Dr Mendoza's expertise. Continue cipro/flagyl as per GI recommendations. Switched to oral dosing September 22. (3) Gallstones: Known. s/p breakup and removal of 2 large stones via EGD on 09/19 by [facility], Dr Mendoza. Patient will have repeat EGD in a few weeks to remove any remaining stones. (4) Duodenal ulcer: As seen on EGD. HOLD asa. Resumed coumadin - H/H stable. Remains on heparin bridge. Continue PO protonix BID. Added Carafate September 22 (5) Sacral decubitus ulcer, stage III: Pressure ulcer of left lateral sacral region, stage 3 - present on admission. Wound care consult and recs appreciated. (6) Diarrhea: Had been frequent leading up to this admission but now none in 3-4+ days. If diarrhea recurs - send for c.diff, etc. 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 Mild body wall edema and LE edema. Continue diuretics. (8) Hypokalemia: Replacement therapy. Serial lab studies (9) Chronic diastolic heart failure: Appears to be acute on chronic. Parenteral Lasix diuresis. Monitor intake and output. Serial lab studies. Serial chest x-ray. (10) Pulmonary hypertension: Severe. With resulting right-sided CHF and chronic hypoxic respiratory failure. She appears to have chronic cor pulmonale (11) Adult hypothyroidism: TSH 03/2020 wnl Cont synthroid w/o changes (12) Atrial fibrillation: Typically on coumadin for anticoagulation. Lovenox bridge. (13) H/O mechanical aortic valve replacement: Chronic coumadin daily INR cont Lovenox bridge until INR therapeutic (14) HTN (hypertension): controlled (15) Chronic right-sided CHF (congestive heart failure): continue metoprolol tartrate 100mg BID continue lasix 40mg BID (16) External hemorrhoid: anusol cream QID keep stool soft (17) Chronic respiratory failure with hypoxia: stable on 2-3 LC NC dispo - [facility] tomorrSeptember 24. Continue PT, OT Admission and Anticipated Discharge Date Admission Date: September 18, 2020 Subjective Alert and pleasant. Constipation is main complaint. MiraLAX ordered and Fleet enema will be given today. Potassium supplementation uptitrated. INR is up to 1.8 and uptrending. Anticipate discharge to [facility] tomSeptember 24 Review of Systems Review of Systems: All systems reviewed & are unremarkable except as noted in HPI & below Physical Exam Physical Exam: General-alert and oriented x3, no fevers, no chills HEENT-head atraumatic and normocephalic, TMs intact bilaterally, pupils equal and reactive to light, extraocular muscles intact Neck-no lymphadenopathy or thyromegaly, trachea midline Chest-faint bibasilar inspiratory rales. No wheezing Cardiac-irregular rhythm. Controlled rate. Abdomen-normal bowel sounds, nontender, no hepatosplenomegaly Extremities-no cyanosis, clubbing, or edema Neuro-cranial nerves II through XII intact, motor and sensory function within normal limits, strength symmetrical , no focal deficits Psych-normal affect, normal mood Results & Data Results & Data ([facility]) Vital Signs (Past 12 Hours) Vital Signs Temp Pulse Pulse Resp BP Pulse Ox 09/23/20 11:29 36.5 C 60 18 115/55 L 94 09/23/20 08:19 37.0 C 60 18 120/65 93 09/23/20 03:51 36.4 C L 62 18 143/63 H 92 Laboratory Results 09/23/20 06:39 09/23/20 06:39 PG Care Time/CCT Total # of Minutes Spent Total Time Spent with Patient: Total time spent is greater than 50% in coordination of care (as documented) at patient's floor/unit and/or counseling patient: Coding Level of Care Code 64515 Subs Hosp Care Lv 3 Diagnoses Chronic hyponatremia E87.1 Cholecystoduodenal fistula K82.3 Gallstones K80.20 Duodenal ulcer K26.9 Sacral decubitus ulcer, stage III L89.153 Diarrhea R19.7 Diarrhea type: unspecified type Cirrhosis K74.60 Hepatic cirrhosis type: unspecified hepatic cirrhosis Ascites presence: unspecified Hypokalemia E87.6 Chronic diastolic heart failure I50.32 Pulmonary hypertension I27.20 Adult hypothyroidism E03.9 Atrial fibrillation I48.91 Atrial fibrillation type: unspecified H/O mechanical aortic valve replacement Z95.2 HTN (hypertension) I10 Hypertension type: essential hypertension Chronic right-sided CHF (congestive heart failure) I50.812 External hemorrhoid K64.4 Chronic respiratory failure with hypoxia J96.11 (1) Diarrhea Diarrhea type: unspecified type Qualified Code(s): R19.7 - Diarrhea, unspecified (2) Cirrhosis Hepatic cirrhosis type: unspecified hepatic cirrhosis Ascites presence: unspecified Qualified Code(s): K74.60 - Unspecified cirrhosis of liver (3) Atrial fibrillation Atrial fibrillation type: unspecified Qualified Code(s): I48.91 - Unspecified atrial fibrillation (4) HTN (hypertension) Hypertension type: essential hypertension Qualified Code(s): I10 - Essential (primary) hypertension
--- NOTE | 2020-09-23 16:59 | Cardiology Progress Note ---
Date of Service September 23, 2020 Assessment & Plan (1) Hyponatremia: Patient with complex constellation of issues as well outlined by nephrology and hospitalist. Patient has chronic hyponatremia with worsening with IV fluids mild volume overload. Agree with diuresis and conversion to oral diuretic in a.m. Would recommend resuming losartan Patient has experienced past significant hyponatremia with eplerenone. Would not restart Will require increase in potassium supplement on disc (2) Pulmonary hypertension: (3) H/O mechanical aortic valve replacement: INR increasing status post reversal for procedure (4) Acute on chronic diastolic (congestive) heart failure: (5) HTN (hypertension): Admission and Anticipated Discharge Date Admission Date: September 18, 2020 Subjective Patient seen and examined chart reviewed telemetry reviewed "About the same" No chest pains or worsening shortness of breath no specific cardiac complaints. Symptoms have improved though blood pressure increasing, losartan on hold Physical Exam Respiratory: Auscultation: + crackles Cardiovascular: Rate/Rhythm: regular rhythm (Paced) Heart Sounds: + murmur (Grade 1-2 systolic with crisp mechanical valve sound) Extremities: + edema (Chronic stasis changes) Results & Data ([facility]) Vital Signs (Past 12 Hours) Vital Signs Temp Pulse Pulse Resp BP Pulse Ox 09/23/20 15:26 36.6 C 67 19 166/98 H 95 09/23/20 15:22 36.6 C 62 19 129/66 96 09/23/20 11:29 36.5 C 60 18 115/55 L 94 09/23/20 08:19 37.0 C 60 18 120/65 93 Laboratory Results Laboratory Results - last 24 hr 09/23/20 09/23/20 09/23/20 06:39 06:39 06:39 WBC 4.76 L RBC 4.21 Hgb 10.3 L Hct 32.0 L MCV 76.0 L MCH 24.5 L MCHC 32.2 RDW Std Deviation 57.6 H RDW Coeff of Sia 21.1 H Plt Count 120 L MPV 9.6 Immature Gran % (Auto) 0.4 Neut % (Auto) 64.1 Lymph % (Auto) 23.9 Brooke % (Auto) 10.1 Eos % (Auto) 1.3 Baso % (Auto) 0.2 Neut # (Auto) 3.05 Lymph # (Auto) 1.14 L Brooke # (Auto) 0.48 Eos # (Auto) 0.06 Baso # (Auto) 0.01 Immature Gran # (Auto) 0.02 Anisocytosis Present Target Cells 1+ PT 17.2 H INR 1.8 H Sodium 128 L Potassium 3.1 L Chloride 90 L Carbon Dioxide 34 H Anion Gap 4.0 BUN 8 Creatinine 0.50 L Est Cr Clr Drug Dosing 79.1 Est GFR ( Amer) 100.2 Est GFR (Non-Af Amer) 86.4 BUN/Creatinine Ratio 16.0 Glucose 82 Calcium 8.2 L (1) HTN (hypertension) Hypertension type: essential hypertension Qualified Code(s): I10 - Essential (primary) hypertension
[2020-09-23] MEDS ORDERED: GLUCAGON FOR INJ 1 MG VIAL ONE (17:31)
[2020-09-24] MEDS: RESTASIS~ORDER AWAITING ACTION SCH ×2 (01:04→09:06)
[2020-09-24] MEDS: LEVOTHYROXINE SODIUM 75 MCG TABLET PO SCH (05:46)
[2020-09-24 05:58] LABS: Basophils # (auto) 0.01 K/uL (0-0.2); Basophils % (auto) 0.2 %; Hematocrit (blood only) 32.6 % (37-47); Hemoglobin 10.5 g/dL (12.0-16.0); Immature Granulocytes # (auto) 0.02 K/uL (0.00-0.02); Immature Granulocytes % (auto) 0.4 %; Lymphocytes # (auto) 1.17 K/uL (1.2-3.4); Lymphocytes % (auto) 22.3 %; Mean Corpuscular Hemoglobin 24.7 pg (25-34); Mean Corpuscular Hgb Conc 32.2 g/dL (32-36); Mean Corpuscular Volume 76.7 fL (80-100); Mean Platelet Volume 9.3 fL (7.4-10.4); Monocytes # (auto) 0.49 K/uL (0.11-0.59); Monocytes % (auto) 9.3 %; Neutrophils # (auto) 3.56 K/uL (1.4-6.5); Neutrophils % (auto) 67.8 %; Platelet Count 124 K/uL (130-400); RDW Coefficient of Variation 21.4 % (11.5-14.5); RDW Standard Deviation 59.4 fL (36.4-46.3); Red Blood Count 4.25 M/uL (4.2-5.4); White Blood Count 5.25 K/uL (4.8-10.8)
[2020-09-24 06:06] LABS: INR 1.7 (0.9-1.1); Prothrombin Time 16.3 Seconds (9.0-12.0)
[2020-09-24 06:27] LABS: Anisocytosis Present; Giant Platelets 1+; Hypochromasia Present
[2020-09-24 06:39] LABS: BUN Creatinine Ratio 16.7 (10-20); Calcium 8.3 mg/dl (8.5-10.1); Creatinine Clr Calc Pharmacy 83.9 ml/min; Est GFR (African American) 102.9; Est GFR (Non-African American) 88.8; Potassium 3.4 mmol/L (3.5-5.1)
[2020-09-24] MEDS: metroNIDAZOLE 500 MG TAB PO SCH (07:59)
[2020-09-24] MEDS: FUROSEMIDE 40 MG in SYRINGE 0 ML IV SCH (08:00)
[2020-09-24] MEDS: POTASSIUM CHLORIDE CRTAB 20 MEQ TABCR PO SCH ×2 (08:00→11:28)
[2020-09-24] MEDS: PANTOprazole 40 MG TAB PO SCH (08:01)
[2020-09-24] MEDS: CIPROFLOXACIN 500 MG TAB PO SCH (08:01)
[2020-09-24] MEDS: METOPROLOL TARTRATE 100 MG TAB PO SCH (08:01)
[2020-09-24] MEDS: DORZOLAMIDE/TIMOLOL 22.3/6.8MG/ML 10 ML BTL OP SCH (08:02)
[2020-09-24] MEDS: amLODIPine BESYLATE 5 MG TAB PO SCH (08:03)
[2020-09-24] MEDS: HYDROCORTISONE HC 2.5% CRM 30GM TUBE EXT SCH (08:04)
[2020-09-24] MEDS: SUCRALFATE 1 GM TAB PO SCH ×2 (08:33→11:27)
[2020-09-24] MEDS ORDERED: POLYETHYLENE (MIRALAX) 17 GM PACK PO SCH (09:00)
[2020-09-24] MEDS: ENOXAPARIN 80 MG/0.8 ML SYR SC SCH (11:26)
[2020-09-24] MEDS: CEROVITE ADV FORMULA TAB PO SCH (11:27)
--- NOTE | 2020-09-24 12:42 | Discharge Summary ---
Date of Service September 24, 2020 Admission HPI Per Admitting Provider Clarisse Mo is an 89-year-old female with a past medical history of chronic diastolic heart failure, hypothyroidism, atrial fibrillation and history of mechanical aortic valve replacement on warfarin, hypertension, chronic elevated troponins, pulmonary hypertension, and choledocholithiasis with past sphincterotomy and cholecysto-duodenal stent placement (EUS guided) who presents with several months of burning abdominal pain across her entire abdomen with loose bowel movements over the last few months in which did not respond to outpatient treatment for diarrhea. She has not had any bleeding or melena, and outpatient colonoscopy was on remarkable. Clarisse reports she has had loose bowels for 'a long time' and bleeding hemorrhoids 'for a very long time.' She reports the last few days she has had worsened diarrhea with sudden urge and incontinence. She notes she has a history of gallstones repeated since she was younger until she had a blockage in her bile duct causing her to pass out and present to the hospital with dehydration. She had an ERCP which removed 'quite a bit of stones' but didn't want to operate due to her age and surgical risk. She reports this 'set her back and I lose my energy and felt terrible.' She had numerous falls requiring her to eventually need a walker and rehab. Starting two days ago and worsening yesterday she developed a strong aching/burning in her stomach. She sat on the commode for 'a long time' and whenever she thought she could ge tup she had pain and had additional diarrhea. She has some burning and pain worsened with meals and sometimes feels food gets stuck in her throat. Sometimes brings back up small amounts of food. Has some pain under her right breast into the back which is new.She endorses chronic chills, but no fevers. No melena, bright red blood. BMs otherwise brownish in color. She has had swelling in her legs and feet increased over two weeks, reports that Dr. Grissom put her on eplerenone in addition to her lasix. She is on lasix 40mg BID. She called Dr. Weems who told her to push the hemorrhoid back into which 'was a job in itself' but after which she felt was successful but noted bright red blood and sore toilet paper after. She called [facility] due to continued diarrhea worsening her hermorrhoids who recommended she try Immodium. She reports the immodium did not help and when she woke up this morning she had a stronger burning and acid-reflux character to her stomach pain and her belly was 'so sore' extending into the 'lower intestines' that she called in again and was told to go to the ER due other worsening illness. Reports her most discomfort is the soreness from her hemmorhoids. She wants to go to [facility] for Therapy and rehab after because she feels to weak to be at home currently and has trouble jen gfor herself with the diarrhea and hemorrhoids. Last Colonoscopy: 9 years ago and was told no tto have anotherone after due to concern for injury of the intestines/perforation. No history of polyps or colon cancer. No FHx of colon cancer in first degree relatives. Has NOT taken her medications today,. Reports losartan and amlodipine AM NOT PM. [Clarifies has not been taking PM losartan] No bleeding other than the hemorrhoids. Denies increased shortness of breath, but cannot sleep flat. Uses 2L O2 at night and PRN during the day if she 'overdoes it.' Sleeps propped up in a recliner chair. Has been using oxygen during the day 1-2x daily. No change in preceding few weeks. First COVID shot was Tuesday, was due for her second shot this Tuesday. Social: Lives alone in a home, was with her daughter for a few weeks and is planning on moving to [facility] at some point. Tobacco: none Alcohol: none Recreational: none CODE STATUS: Full Code Principal Diagnosis Acute on chronic diastolic CHF, duodenal ulcer, chronic respiratory failure, hypokalemia, hypoosmolar hyponatremia, cholelithiasis with Cholecysto- duodenal stent Discharge Data Allergies Allergy/AdvReac Type Severity Reaction Status Date / Time Sulfa (Sulfonamide Allergy Intermediate HIVES Verified 09/18/20 10:27 Antibiotics) Consultations 09/18/20 10:25 ED Decision to Admit Stat 09/18/20 12:27 Consult Gastroenterology Routine 09/18/20 12:39 Consult Cardiology Routine Procedures Performed Operation Date: 09/19/20 13:30 Actual Procedures p Esophagogastroduodenoscopy with Fluoro, Balloon Dilation, Stone Extraction, Stent Placement(Not Applicable) - Francesca Mendoza MD Ordered Studies 09/18/20 08:32 CT abd pelvis IV con only Stat 09/19/20 12:30 FL fluoroscopy <1hr Routine 09/19/20 13:30 FL KUB Routine Hospital Course (1) Chronic hyponatremia: acute on chronic. Hypoosmolar state due to a combination of CHF and cirrhosis. Nephrology consultation noted and appreciated. Currently on fluid restriction. Continue free water diuresis and serial lab studies. Oral Lasix switched to IV dosing. We will switch back to oral Lasix at discharge. Minim ized IV fluids by switching IV antibiotics to oral dosing, switch heparin drip to Lovenox subcu 1 mg/kg every 12 hours. She is on salt tabs but will have to determine if this is going to aggravate the CHF. 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 This was placed due to concern that patient would not tolerate a cholecystectomy due to numerous comorbidities. POD #5 - s/p EGD with repositioning of stent and break-up of [address] Mendoza's expertise. Continue cipro/flagyl as per GI recommendations. Switched to oral dosing September 22. (3) Gallstones: Known. s/p breakup and removal of 2 large stones via EGD on 09/19 by [facility], Dr Mendoza. Patient will have repeat EGD in a few weeks to remove any remaining stones. (4) Duodenal ulcer: As seen on EGD. HOLD asa. Resumed coumadin - H/H stable. Remains on lovenox bridge. Continue PO protonix BID. Added Carafate September 22 (5) Sacral decubitus ulcer, stage III: Pressure ulcer of left lateral sacral region, stage 3 - present on admission. Wound care consult and recs appreciated. (6) Diarrhea: Had been frequent leading up to this admission but now resolved . 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 Mild body wall edema and LE edema. Continue diuretics. (8) Hypokalemia: Replacement therapy. Serial lab studies (9) Chronic diastolic heart failure: Appears to be acute on chronic. Parenteral Lasix diuresis while hospitalized. Switch back to oral Lasix at discharge. Monitor intake and output. Serial lab studies. Serial chest x-ray. (10) Pulmonary hypertension: Severe. With resulting right-sided CHF and chronic hypoxic respiratory failure. She appears to have chronic cor pulmonale (11) Adult hypothyroidism: TSH 03/2020 wnl Cont synthroid w/o changes (12) Atrial fibrillation: Typically on coumadin for anticoagulation. Lovenox bridge. (13) H/O mechanical aortic valve replacement: Chronic coumadin daily INR cont Lovenox bridge until INR therapeutic . INR goal is 2.5-3.5 (14) HTN (hypertension): controlled (15) Chronic right-sided CHF (congestive heart failure): continue metoprolol tartrate 100mg BID continue lasix 40mg BID (16) External hemorrhoid: anusol cream QID keep stool soft (17) Chronic respiratory failure with hypoxia: stable on 2-3 LC PR dispo - [facility] today , September 24. Continue PT, OT Total Time Total Time Spent Total Time Spent (In Minutes): 40 minutes Total Time Includes: Examination of the Patient, Discharge Planning and Medication Reconciliation Discharge Plan Discharge Items Reason For Visit: ABDOMINAL PAIN,DIARRHEA Condition on Discharge: Good Follow-up/Referrals: Juice Robledo MD [Primary Care Provider] - Medications and DC Order Prescriptions: No Action furosemide [Lasix] 40 mg Tablet 40 mg PO BID Qty: 0 RF: 0 aspirin [Aspirin Low Dose] 81 mg Tablet,Delayed Release (Dr/Ec) 81 mg PO QAM Qty: 0 RF: 0 levothyroxine 75 mcg Tablet 75 mcg PO QAM Qty: 0 RF: 0 Centrum Silver Women 8 mg iron-400 mcg-300 mcg Tablet 1 tab PO DAILY@1200 Qty: 0 RF: 0 warfarin 3 mg Tablet 1.5 mg PO 3XWK Qty: 0 RF: 0 metoprolol tartrate 100 mg Tablet 100 mg PO BID Qty: 0 RF: 0 lorazepam [Ativan] 0.5 mg Tablet 0.5 mg PO BID PRN (Reason: Anxiety) Qty: 0 RF: 0 (DME) Oxygen Home Liters Per Minute 2 liters NA HS Qty: 0 RF: 0 amlodipine [Norvasc] 5 mg Tablet 5 mg PO QAM Qty: 0 RF: 0 Rhopressa 0.02 % Drops 1 drp OPB PM PRN (Reason: ocular hypertension) RF: 0 potassium chloride [Klor-Con M20] 20 mEq Tablet,Er Particles/Crystals 20 meq PO TID Qty: 90 RF: 0 dorzolamide-timolol 22.3-6.8 mg/mL drops 1 drp ophthalmic (eye) AMPM RF: 0 losartan 25 mg Tablet 50 mg PO AMPM RF: 0 hydrocortisone 2.5 % cream 1 applic TOPICAL BID PRN (Reason: Skin Irritation) RF: 0 eplerenone 25 mg tablet 25 mg PO DAILY RF: 0 loperamide [Imodium] 2 mg Capsule 2 mg PO Q4H PRN (Reason: Diarrhea) RF: 0 warfarin 3 mg tablet 3 mg PO 4XWK RF: 0 calcium carbonate [Calcium 500] 500 mg calcium (1,250 mg) Tablet 0 mg PO DAILY@1200 RF: 0 Slow-Mag 71.5 mg Tablet,Delayed Release (Dr/Ec) 0 mg PO TID RF: 0 Restasis 0.05 % dropperette 1 drp OPB PM RF: 0 Admission Data Admit Date/Time: 09/18/20 12:13 Attending Provider: Blayne Bledsoe Admit Provider: Vikash Bean Primary Care Provider: Juice Robledo Other Providers: Tripwolf ; Breanna Snowden ; Arnaldo Samuel ; Tito Nguyen Coding Level of Care Code D/C Day Management >30 mins Diagnoses Chronic hyponatremia E87.1 Cholecystoduodenal fistula K82.3 Gallstones K80.20 Duodenal ulcer K26.9 Sacral decubitus ulcer, stage III L89.153 Diarrhea R19.7 Diarrhea type: unspecified type Cirrhosis K74.60 Hepatic cirrhosis type: unspecified hepatic cirrhosis Ascites presence: unspecified Hypokalemia E87.6 Chronic diastolic heart failure I50.32 Pulmonary hypertension I27.20 Adult hypothyroidism E03.9 Atrial fibrillation I48.91 Atrial fibrillation type: unspecified H/O mechanical aortic valve replacement Z95.2 HTN (hypertension) I10 Hypertension type: essential hypertension Chronic right-sided CHF (congestive heart failure) I50.812 External hemorrhoid K64.4 Chronic respiratory failure with hypoxia J96.11
[2020-09-24] MEDS ORDERED: WARFARIN SOD 4 MG TAB PO SCH (16:00)
[2020-09-25] MEDS ORDERED: LOSARTAN POTASSIUM 50 MG TAB PO SCH (09:00)
== END 2020-09-24 14:46 | DRG 444 ==
LOC: ED 08:16 → SUATTDRO 12:13 → 2S 12:13

== ENCOUNTER 2020-11-07 14:49 | Inpatient (IN) ==
[2020-11-07] MEDS ORDERED: FUROSEMIDE 40 MG/4 ML VIAL IV STA (16:20)
--- NOTE | 2020-11-07 16:26 | Emergency Department Note ---
History of Present Illness General Chief complaint: Illness Stated complaint: HYPONATREMIA Time Seen by Provider: 11/07/20 16:10 Source: patient and family History of Present Illness Provider complaint: Generalized weakness Onset (ago): week(s) Location: upper extremity and lower extremity Pain Consistency: + constant Quality: + other (Generalized weakness) Exacerbated By: + other (Exertion) Associated symptoms: + shortness of breath and + weakness; no chest pain, no cough, no fever/chills, no nausea/vomiting and no syncope This is an 89-year-old female who presents with generalized weakness and shortness of breath for the past week. The patient states that they recently saw her shoe sticks repairer and he felt that she should be admitted to the hospital due to her breathing and low sodium. The patient has a history of CHF. She has had some shortness of breath and generalized weakness for the past week. Is worse with exertion. It is better with oxygen. She denies any associated chest discomfort or pain. Her shoe sticks repairer estimates that she has had a 15 pound weight gain although they have not been taking her weight at home. She complains of swelling to her extremities greater on the left side. She does take warfarin daily. She is also on Lasix. She denies any fever, vomiting, abdominal pain or diarrhea. She does state that she has problems with constipation. Home Medications Medication Instructions Recorded Confirmed Type furosemide [Lasix] 60 mg PO BID #0 tab 01/17/12 11/07/20 History Centrum Silver Women 1 tab PO DAILY@1200 #0 07/31/13 11/07/20 History aspirin [Aspirin Low Dose] 81 mg PO QAM #0 07/31/13 11/07/20 History Oxygen Home #0 09/10/13 11/05/20 History lorazepam [Ativan] 0.5 mg PO BID PRN #0 tab 09/10/13 11/07/20 History metoprolol tartrate 100 mg PO BID #0 tab 09/10/13 11/07/20 History dorzolamide-timolol 1 drp OPHTHALMIC (EYE) AMPM 08/12/19 11/07/20 History Restasis 1 drp OPB PM 09/18/20 11/07/20 History eplerenone 25 mg PO DAILY 09/18/20 11/07/20 History hydrocortisone 1 applic TOPICAL BID PRN 09/18/20 11/07/20 History loperamide 2 mg PO Q4H PRN 09/18/20 11/07/20 History pantoprazole 40 mg PO BID #60 tab 09/24/20 11/07/20 Rx Lactobacillus acidoph-L.bulgar 2 tab PO BID 11/05/20 11/07/20 History [Floranex] acetaminophen 650 mg PO QID PRN 11/05/20 11/07/20 History netarsudil 1 drp OPHTHALMIC (EYE) DAILY 11/05/20 11/07/20 History potassium chloride [Klor-Con M20] 40 meq PO BID 11/05/20 11/07/20 History calcium carbonate [Tums] 600 mg PO DAILY 11/07/20 11/07/20 History levothyroxine 100 mcg PO QAM 11/07/20 11/07/20 History losartan 25 mg PO BID 11/07/20 11/07/20 History magnesium chloride [Slow-Mag] 64 mg PO TID 11/07/20 11/07/20 History phenyleph-min oil-petrolatum 1 applic [place] [facility] PRN 11/07/20 11/07/20 History [Preparation H] trolamine salicylate [Aspercreme] 1 applic TOPICAL DAILY PRN 11/07/20 11/07/20 History warfarin 3 mg PO DAILY 11/07/20 11/07/20 History Allergies Allergy/AdvReac Type Severity Reaction Status Date / Time Sulfa (Sulfonamide Allergy Intermediate HIVES Verified 11/07/20 18:24 Antibiotics) Past Med/Surg History Medical History Atrial fibrillation CHF (congestive heart failure) Cholecystitis Choledocholithiasis Elevated troponin HTN (hypertension) Pacemaker Thickened endometrium Thyroid disease Vertigo Surgical History Aortic valve replaced no further details provided from facility record History of colonoscopy History of heart valve replacement 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 Status post Mohs surgery Status post placement of cardiac pacemaker no further details provided from facility record Family History Brother Cancer Sister Cancer Social History Smoking Status: Never smoker Tobacco Type: Cigarettes Preferred Language: Persian Communication Ability: Effective Chief Nurse Required: No Beliefs That Will Affect Care: None marital status: / Current Living Situation: Personal Care Facility Current Living Situation Comment: [facility] How many Children do You have: 2 Feels Safe at Home: Yes Assistive Devices: Walker and Wheelchair Review of Systems See HPI for pertinent positives & negatives. and A total of 10 systems reviewed and were otherwise negative Physical Exam Vital Signs Vital Signs - 24 hr 11/07/20 15:02 11/07/20 16:35 11/07/20 16:50 Temperature 36.7 C Temperature Source Temporal Artery Scan Pulse Rate 61 60 Pulse Rate from SpO2 Sensor 60 Respiratory Rate 18 21 Blood Pressure 182/91 H 167/73 H Blood Pressure Mean 121 104 Pulse Oximetry 92 99 98 Oxygen Delivery Method Nasal Cannula Nasal Cannula Oxygen Flow Rate 2 2 Sepsis Recent Fever Within 48 Hours No Sepsis New/Unexplained Change in Mental Status N/A Sepsis Action Taken by Nursing No Action Required 11/07/20 17:00 11/07/20 17:01 11/07/20 17:30 Temperature Temperature Source Pulse Rate 60 62 60 Pulse Rate from SpO2 Sensor 61 62 60 Respiratory Rate 24 22 19 Blood Pressure 173/83 H 171/74 H Blood Pressure Mean 113 106 Pulse Oximetry 99 98 100 Oxygen Delivery Method Nasal Cannula Nasal Cannula Nasal Cannula Oxygen Flow Rate 2 2 2 Sepsis Recent Fever Within 48 Hours Sepsis New/Unexplained Change in Mental Status Sepsis Action Taken by Nursing 11/07/20 18:00 11/07/20 18:30 Temperature Temperature Source Pulse Rate 60 60 Pulse Rate from SpO2 Sensor 60 60 Respiratory Rate 15 18 Blood Pressure 172/74 H 158/64 H Blood Pressure Mean 106 95 Pulse Oximetry 99 100 Oxygen Delivery Method Nasal Cannula Nasal Cannula Oxygen Flow Rate 2 2 Sepsis Recent Fever Within 48 Hours Sepsis New/Unexplained Change in Mental Status Sepsis Action Taken by Nursing Constitutional: Vital signs reviewed. Eyes: Pupils are equal round reactive to light. Conjunctiva are noninjected. ENT: Pharynx is clear without erythema or exudate. Mucous membranes are moist. Neck supple without meningeal signs. Respiratory: Clear to auscultation bilaterally. Breath sounds are equal bilaterally. Cardiovascular: Regular rate and rhythm. No rubs or gallops. GI: Soft, nondistended and nontender. Bowel sounds are present. Musculoskeletal: Bilateral pedal edema. Integumentary: No cyanosis. or jaundice. Neurological: The patient is awake and alert. No focal deficits. Psychiatric: Normal affect. Not anxious appearing. Course Administered Medications Discontinued Medications Furosemide (Furosemide 40 Mg/4 Ml Vial) 40 mg IV NOW STA Stop: 11/07/20 16:21 Last Admin: 11/07/20 16:46 Dose: 40 mg Documented by: [id number] Medical Decision Making Differential Diagnosis CHF exacerbation, ACS, pneumonia, anemia, hyponatremia Medical Records Attestation: I reviewed the patient's medical records. I did perform a limited focused review of portions of the patient's old chart on the electronic medical record. The patient had blood work yesterday which showed a sodium of 127. Home Medications Current Medication List: was personally reviewed by me Laboratory Data Attestation: I reviewed the patient's lab results. Result diagrams: 11/07/20 16:57 11/07/20 16:57 Lab Results 11/07/20 11/07/20 11/07/20 Range/Units 16:57 16:57 16:57 WBC 7.41 (4.8-10.8) K/uL RBC 4.02 L (4.2-5.4) M/uL Hgb 10.6 L (12.0-16.0) g/dL Hct 34.3 L (37-47) % MCV 85.3 (80-100) fL MCH 26.4 (25-34) pg MCHC 30.9 L (32-36) g/dL RDW Std Deviation 69.8 H (36.4-46.3) fL RDW Coeff of Sia 22.1 H (11.5-14.5) % Plt Count 183 (130-400) K/uL MPV 9.1 (7.4-10.4) fL Immature Gran % (Auto) 0.3 % Neut % (Auto) 79.2 % Lymph % (Auto) 11.3 % [place] % (Auto) 8.6 % Eos % (Auto) 0.5 % Baso % (Auto) 0.1 % Neut # (Auto) 5.86 (1.4-6.5) K/uL Lymph # (Auto) 0.84 L (1.2-3.4) K/uL [place] # (Auto) 0.64 H (0.11-0.59) K/uL Eos # (Auto) 0.04 (0-0.5) K/uL Baso # (Auto) 0.01 (0-0.2) K/uL Immature Gran # (Auto) 0.02 (0.00-0.02) K/uL Hypochromasia Present Anisocytosis Present PT 25.3 H (9.0-12.0) Seconds INR 2.7 H (0.9-1.1) APTT 36.8 H (21.0-31.0) Seconds PTT Ratio 1.4 Sodium 129 L (136-145) mmol/L Potassium 4.1 (3.5-5.1) mmol/L Chloride 90 L (98-107) mmol/L Carbon Dioxide 36 H (21-32) mmol/L Anion Gap 3.0 (3-11) BUN 19 H (7-18) mg/dl Creatinine 0.64 (0.6-1.2) mg/dl Est Cr Clr Drug Dosing Not Reportable Est GFR ( Amer) 91.7 Est GFR (Non-Af Amer) 79.1 BUN/Creatinine Ratio 29.6 H (10-20) Glucose 123 H (70-99) mg/dl Calcium 9.2 (8.5-10.1) mg/dl Magnesium 2.1 (1.8-2.4) mg/dl Total Bilirubin 0.7 (0.2-1) mg/dl AST 24 (15-37) U/L ALT 25 (12-78) U/L Alkaline Phosphatase 282 H (45-117) U/L Troponin I 0.029 (0-0.045) ng/ml NT-Pro-B Natriuret Pep 8267 H (0-1800) pg/ml Total Protein 7.3 (6.4-8.2) gm/dl Albumin 2.9 L (3.4-5.0) gm/dl Globulin 4.4 H (2.5-4.0) gm/dl Albumin/Globulin Ratio 0.7 L (0.9-2) Urine Color Urine Appearance (Clear) Urine pH (4.5-7.5) Ur Specific Deposit (1.000-1.030) Urine Protein (Negative) Urine Glucose (UA) (Negative) Urine Ketones (Negative) Urine Blood (Negative) Urine Nitrite (Negative) Urine Bilirubin (Negative) Urine Urobilinogen (Negative) Ur Leukocyte Esterase (Negative) COVID-19 Eval Order 11/07/20 11/07/20 Range/Units 17:55 18:55 WBC (4.8-10.8) K/uL RBC (4.2-5.4) M/uL Hgb (12.0-16.0) g/dL Hct (37-47) % MCV (80-100) fL MCH (25-34) pg MCHC (32-36) g/dL RDW Std Deviation (36.4-46.3) fL RDW Coeff of Sia (11.5-14.5) % Plt Count (130-400) K/uL MPV (7.4-10.4) fL Immature Gran % (Auto) % Neut % (Auto) % Lymph % (Auto) % [place] % (Auto) % Eos % (Auto) % Baso % (Auto) % Neut # (Auto) (1.4-6.5) K/uL Lymph # (Auto) (1.2-3.4) K/uL [place] # (Auto) (0.11-0.59) K/uL Eos # (Auto) (0-0.5) K/uL Baso # (Auto) (0-0.2) K/uL Immature Gran # (Auto) (0.00-0.02) K/uL Hypochromasia Anisocytosis PT (9.0-12.0) Seconds INR (0.9-1.1) APTT (21.0-31.0) Seconds PTT Ratio Sodium (136-145) mmol/L Potassium (3.5-5.1) mmol/L Chloride (98-107) mmol/L Carbon Dioxide (21-32) mmol/L Anion Gap (3-11) BUN (7-18) mg/dl Creatinine (0.6-1.2) mg/dl Est Cr Clr Drug Dosing Est GFR ( Amer) Est GFR (Non-Af Amer) BUN/Creatinine Ratio (10-20) Glucose (70-99) mg/dl Calcium (8.5-10.1) mg/dl Magnesium (1.8-2.4) mg/dl Total Bilirubin (0.2-1) mg/dl AST (15-37) U/L ALT (12-78) U/L Alkaline Phosphatase (45-117) U/L Troponin I (0-0.045) ng/ml NT-Pro-B Natriuret Pep (0-1800) pg/ml Total Protein (6.4-8.2) gm/dl Albumin (3.4-5.0) gm/dl Globulin (2.5-4.0) gm/dl Albumin/Globulin Ratio (0.9-2) Urine Color Yellow Urine Appearance Clear (Clear) Urine pH 7.0 (4.5-7.5) Ur Specific Deposit 1.010 (1.000-1.030) Urine Protein Negative (Negative) Urine Glucose (UA) Negative (Negative) Urine Ketones Negative (Negative) Urine Blood Negative (Negative) Urine Nitrite Negative (Negative) Urine Bilirubin Negative (Negative) Urine Urobilinogen Negative (Negative) Ur Leukocyte Esterase Negative (Negative) COVID-19 Eval Order [facility]FluRsv at [facility] Imaging Data Radiologist's Impression: Chest X-Ray 11/07/20 16:20 XR chest 1V portable HISTORY: 89 years-old Female Dyspnea acute shortness of breath COMPARISON: Chest radiograph 09/22/2020 TECHNIQUE: Portable AP view of the chest FINDINGS: Cardiomegaly. Prior median sternotomy with cardiac valvular prosthesis. Single lead left subclavian pacer. Small left pleural effusion with left greater than right bibasilar opacities.. Trace right pleural effusion. Linear scarring/atelectasis of the left midlung. Pulmonary vascular congestion with m ild interstitial opacities. No pneumothorax. Degenerative changes of the shoulders and spine. IMPRESSION: 1. Cardiomegaly with mild pulmonary edema. 2. Trace right and small left pleural effusions. 3. Mild left greater than right bibasilar opacities suggestive of atelectasis versus pneumonitis. ACT 112: Negative or not required by law. The above report was generated using voice recognition software. It may contain grammatical, syntax or spelling errors. Electronically signed by: Bret Casas M.D. 11/07/2020 5:00 PM ECG Data Attestation: I personally reviewed and interpreted this ECG as follows: Indication: + SOB/dyspnea Rate (beats per minute): Sixty-one Rhythm: + other (Ventricular paced rhythm) ECG Findings: + Other (QRS is 206 ms.); no PVCs MDM Narrative I did evaluate the patient as noted above. The patient was sent here by her shoe sticks repairer for hospitalization due to fluid retention, CHF exacerbation and hyponatremia. The patient complains of some generalized symptoms of weakness and some shortness of breath. She denies having any chest pain or fever or any other concerning symptoms. IV access was established. I did treat her with Lasix [address] did [address] an order for continuous cardiac monitoring. The monitor showed normal sinus rhythm at a rate of 60 bpm. I did order and personally review the patient's 12-lead EKG as described above. She has a paced rhythm. I did order and personally reviewed the images of the patient's chest x-ray as described above. She has congestive changes and pleural effusions. I did order a urine analysis. She does not have an infection. I did order and review the patient's blood work as noted in the electronic medical record. Her white count is not elevated. Hemoglobin is 10.6. This is her baseline. Sodium is 129. Chloride ninety, CO2 thirty-six and glucose 123. INR is therapeutic at 2.7. proBNP is 8267. Troponin is nonelevated. I did discuss the test results with the patient and her family. I did discuss the case with the hospitalist and case resolution specialist. Impression & Plan Acute on chronic diastolic (congestive) heart failure, Acute hyponatremia, Anemia, Anticoagulated with warfarin Discharge Plan Visit Data Chief Complaint: Illness Stated Complaint: HYPONATREMIA ED Provider: Tito Hernandez Discharge Problem: Acute on chronic diastolic (congestive) heart failure, Acute hyponatremia, Anemia, Anticoagulated with warfarin Patient Disposition: Being Evaluated by Hospitalist Forms Stand Alone Forms: My [facility] Prescriptions Prescriptions: No Action furosemide [Lasix] 40 mg Tablet 60 mg PO BID Qty: 0 RF: 0 aspirin [Aspirin Low Dose] 81 mg Tablet,Delayed Release (Dr/Ec) 81 mg PO QAM Qty: 0 RF: 0 Centrum Silver Women 8 mg iron-400 mcg-300 mcg Tablet 1 tab PO DAILY@1200 Qty: 0 RF: 0 metoprolol tartrate 100 mg Tablet 100 mg PO BID Qty: 0 RF: 0 lorazepam [Ativan] 0.5 mg Tablet 0.5 mg PO BID PRN (Reason: Anxiety) Qty: 0 RF: 0 (DME) Oxygen Home Liters Per Minute 2 liters NA HS Qty: 0 RF: 0 dorzolamide-timolol 22.3-6.8 mg/mL drops 1 drp ophthalmic (eye) AMPM RF: 0 hydrocortisone 2.5 % cream 1 applic TOPICAL BID PRN (Reason: Skin Irritation) RF: 0 eplerenone 25 mg tablet 25 mg PO DAILY RF: 0 loperamide 2 mg Capsule 2 mg PO Q4H PRN (Reason: Diarrhea) RF: 0 Restasis 0.05 % dropperette 1 drp OPB PM RF: 0 pantoprazole 40 mg Tablet,Delayed Release (Dr/Ec) 40 mg PO BID Qty: 60 RF: 0 acetaminophen 325 mg Tablet 650 mg PO QID PRN (Reason: Pain) RF: 0 Lactobacillus acidoph-L.bulgar [Floranex] 1 million cell Tablet 2 tab PO BID RF: 0 netarsudil 0.02 % Drops 1 drp OPHTHALMIC (EYE) DAILY RF: 0 potassium chloride [Klor-Con M20] 20 mEq tablet,ER particles/crystals 40 meq PO BID RF: 0 losartan 50 mg tablet 25 mg PO BID RF: 0 calcium carbonate [Tums] 300 mg (750 mg) Tablet,Chewable 600 mg PO DAILY RF: 0 Slow-Mag 64 mg Tablet Extended Release 64 mg PO TID RF: 0 warfarin 3 mg Tablet 3 mg PO DAILY RF: 0 levothyroxine 100 mcg Tablet 100 mcg PO QAM RF: 0 trolamine salicylate [Aspercreme] 10 % Cream 1 applic TOPICAL DAILY PRN (Reason: Pain) RF: 0 Preparation H 0.25-14-74.9 % Ointment 1 applic [place] [facility] PRN (Reason: Hemorrhoids) RF: 0 Referrals Referrals: Juice Robledo MD [Primary Care Provider] - Discharge Problem: Anemia Qualifiers: Anemia type: unspecified type Qualified Code(s): D64.9 - Anemia, unspecified
--- NOTE | 2020-11-07 17:01 | XRay Report ---
XR chest 1V portable HISTORY: 89 years-old Female Dyspnea acute shortness of breath COMPARISON: Chest radiograph 09/22/2020 TECHNIQUE: Portable AP view of the chest FINDINGS: Cardiomegaly. Prior median sternotomy with cardiac valvular prosthesis. Single lead left subclavian p acer. Small left pleural effusion with left greater than right bibasilar opacities.. Trace right pleu ral effusion. Linear scarring/atelectasis of the left midlung. Pulmonary vascular congestion with mil d interstitial opacities. No pneumothorax. Degenerative changes of the shoulders and spine. IMPRESSION: 1. Cardiomegaly with mild pulmonary edema. 2. Trace right and small left pleural effusions. 3. Mild left greater than right bibasilar opacities suggestive of atelectasis versus pneumonitis. ACT 112: Negative or not required by law. The above report was generated using voice recognition software. It may contain grammatical, syntax o r spelling errors. Electronically signed by: Bret Casas M.D. 11/07/2020 5:00 PM
[2020-11-07 17:16] LABS: Basophils # (auto) 0.01 K/uL (0-0.2); Basophils % (auto) 0.1 %; Eosinophils # (auto) 0.04 K/uL (0-0.5); Eosinophils % (auto) 0.5 %; Hematocrit (blood only) 34.3 % (37-47); Hemoglobin 10.6 g/dL (12.0-16.0); Immature Granulocytes # (auto) 0.02 K/uL (0.00-0.02); Immature Granulocytes % (auto) 0.3 %; Lymphocytes # (auto) 0.84 K/uL (1.2-3.4); Lymphocytes % (auto) 11.3 %; Mean Corpuscular Hemoglobin 26.4 pg (25-34); Mean Corpuscular Hgb Conc 30.9 g/dL (32-36); Mean Corpuscular Volume 85.3 fL (80-100); Mean Platelet Volume 9.1 fL (7.4-10.4); Monocytes # (auto) 0.64 K/uL (0.11-0.59); Monocytes % (auto) 8.6 %; Neutrophils # (auto) 5.86 K/uL (1.4-6.5); Neutrophils % (auto) 79.2 %; Platelet Count 183 K/uL (130-400); RDW Coefficient of Variation 22.1 % (11.5-14.5); RDW Standard Deviation 69.8 fL (36.4-46.3); Red Blood Count 4.02 M/uL (4.2-5.4); White Blood Count 7.41 K/uL (4.8-10.8)
[2020-11-07 17:29] LABS: INR 2.7 (0.9-1.1); Partial Thromboplastin Ratio 1.4; Partial Thromboplastin Time 36.8 Seconds (21.0-31.0); Prothrombin Time 25.3 Seconds (9.0-12.0)
[2020-11-07 17:32] LABS: Alanine Aminotransferase 25 U/L (12-78); Albumin Level 2.9 gm/dl (3.4-5.0); Aspartate Aminotransferase 24 U/L (15-37); BUN Creatinine Ratio 29.6 (10-20); Blood Urea Nitrogen 19 mg/dl (7-18); Calcium 9.2 mg/dl (8.5-10.1); Carbon Dioxide 36 mmol/L (21-32); Chloride 90 mmol/L (98-107); Est GFR (African American) 91.7; Est GFR (Non-African American) 79.1; Glucose 123 mg/dl (70-99); Magnesium 2.1 mg/dl (1.8-2.4); Potassium 4.1 mmol/L (3.5-5.1); Sodium 129 mmol/L (136-145)
[2020-11-07 17:37] LABS: Albumin Globulin Ratio 0.7 (0.9-2); Alkaline Phosphatase 282 U/L (45-117); Bilirubin,Total 0.7 mg/dl (0.2-1); Globulin 4.4 gm/dl (2.5-4.0); NT Pro B Type Natriuretic Pept 8267 pg/ml (0-1800); Total Protein 7.3 gm/dl (6.4-8.2); Troponin I 0.029 ng/ml (0-0.045)
[2020-11-07 17:39] LABS: Anisocytosis Present; Hypochromasia Present
[2020-11-07 18:05] LABS: Appearance Urine Clear (Clear); Bilirubin Urine Negative (Negative); Blood Urine Negative (Negative); Color Urine Yellow; Glucose Urine UA Negative (Negative); Ketones Urine Negative (Negative); Leukocyte Esterase Urine Negative (Negative); Nitrite Urine Negative (Negative); Protein Urine Negative (Negative); Urobilinogen Urine Negative (Negative)
[2020-11-07 19:40] LABS: Influenza A virus by PCR Negative (Neg); Influenza B virus by PCR Negative (Neg); RSV by PCR Negative (Neg); SARS CoV2 RNA(COVID-19) InHosp NEGATIVE (Negative)
--- NOTE | 2020-11-07 20:40 | History & Physical Report ---
Date of Service November 07, 2020 Assessment & Plan Admission and Anticipated Discharge Date Admission Date: 89 yo F w/ PMHx. of diastolic heart failure, HTN, GERD, valve replacement, hypothyroidism, hyponatremia is here for heart failure exacerbation with shortness of breath and fatigue Acute diastolic heart failure exacerbation, unclear precipitating factor on 2L baseline oxygen EKG with v. paced rhythm CXR with cardiomegaly, edema (mild), trace right and small left effusion, and L>R opacities atelectasis vs. pneumonitis UA nl. - troponin nl continue to trend - Lasix 40 IV in ER, 40 IV lasix ordered for AM - monitor K given increased Lasix dosage - fluid restriction - monitor I's and O's replaced heart valve - continue warfarin INR 2.7 - continue ASA Hypervolemic Hyponatremia (129) - osms ordered - recheck in AM HTN - continue Losartan, Eplerenone, Metoprolol Reflux - continue PPI Code: Full code Diet: HH and sodium restriction DVT: Warfarin History of Present Illness Chief Complaint: CHF exacerbation Primary Care Provider: Juice Robledo MD Clarisse Durawally is here for shortness of breath, fatigue, and confusion. She is coming from [facility] where she has been for 3 weeks, previously at [facility] and before that was admitted for a fall. She is feeling good otherwise and has a good appetite. She has had trouble with staying asleep though but does not note orthopnea. She has low sodium chronically and did take salt tablets in the distant past. She has had increased oxygen requirement initially just using oxygen at night but since she was at [facility] she started using oxygen during the day to 2L chronically. She was last seen by cardiology on 09/23. Hx. of diastolic heart failure with last ECHO in 09/18: left systolic function nl. concentric hypertrophy, mod-severe dilation of the right ventricular dilation, left and right atrium dilation, moderate mitral and tricuspid regurg. right ventricular systolic pressure of 50-60. She had limited fluid intake at [facility]. She was seen previously at [place] for gallstones that were treated with EGD extraction. Allergies Allergy/AdvReac Type Severity Reaction Status Date / Time Sulfa (Sulfonamide Allergy Intermediate HIVES Verified 11/07/20 18:24 Antibiotics) Home Medications Medication Instructions Recorded Confirmed Type furosemide [Lasix] 60 mg PO BID #0 tab 01/17/12 11/07/20 History Centrum Silver Women 1 tab PO DAILY@1200 #0 07/31/13 11/07/20 History aspirin [Aspirin Low Dose] 81 mg PO QAM #0 07/31/13 11/07/20 History Oxygen Home #0 09/10/13 11/05/20 History lorazepam [Ativan] 0.5 mg PO BID PRN #0 tab 09/10/13 11/07/20 History metoprolol tartrate 100 mg PO BID #0 tab 09/10/13 11/07/20 History dorzolamide-timolol 1 drp OPHTHALMIC (EYE) AMPM 08/12/19 11/07/20 History Restasis 1 drp OPB PM 09/18/20 11/07/20 History eplerenone 25 mg PO DAILY 09/18/20 11/07/20 History hydrocortisone 1 applic TOPICAL BID PRN 09/18/20 11/07/20 History loperamide 2 mg PO Q4H PRN 09/18/20 11/07/20 History pantoprazole 40 mg PO BID #60 tab 09/24/20 11/07/20 Rx Lactobacillus acidoph-L.bulgar 2 tab PO BID 11/05/20 11/07/20 History [Floranex] acetaminophen 650 mg PO QID PRN 11/05/20 11/07/20 History netarsudil 1 drp OPHTHALMIC (EYE) DAILY 11/05/20 11/07/20 History potassium chloride [Klor-Con M20] 40 meq PO BID 11/05/20 11/07/20 History calcium carbonate [Tums] 600 mg PO DAILY 11/07/20 11/07/20 History levothyroxine 100 mcg PO QAM 11/07/20 11/07/20 History losartan 25 mg PO BID 11/07/20 11/07/20 History magnesium chloride [Slow-Mag] 64 mg PO TID 11/07/20 11/07/20 History phenyleph-min oil-petrolatum 1 applic IA AMHS PRN 11/07/20 11/07/20 History [Preparation H] trolamine salicylate [Aspercreme] 1 applic TOPICAL DAILY PRN 11/07/20 11/07/20 History warfarin 3 mg PO DAILY 04/30/21 04/30/21 History Past Med/Surg History Medical History (Updated 11/08/20 @ 11:52 by Nestor Bethea MD) Atrial fibrillation CHF (congestive heart failure) Cholecystitis Choledocholithiasis Elevated troponin HTN (hypertension) Pacemaker Thickened endometrium Thyroid disease Vertigo Surgical History Aortic valve replaced no further details provided from facility record History of colonoscopy History of heart valve replacement 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 Status post Mohs surgery Status post placement of cardiac pacemaker no further details provided from facility record Family History Brother Cancer Sister Cancer Social History Smoking Status: Never smoker Tobacco Type: Cigarettes Hx Alcohol Use: No Hx Substance Use: No Preferred Language: Divehi Communication Ability: Effective 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 Beliefs That Will Affect Care: None marital status: / Current Living Situation: Personal Care Facility Current Living Situation Comment: [facility] How many Children do You have: 2 Other Information That Helps Us Care for You: No Feels Safe at Home: Yes Safety Concerns: Feels Safe At This Time Assistive Devices: Oxygen - Continuous Assistive Devices Comment: 2L oxygen Review of Systems Review of Systems: Constitutional: denies fevers, chills, diaphoresis admits nausea, fatigue Head: denies headache, vision changes admits trauma, LOC, confusion Neurologic: denies syncope, slurring of speech Cardiac: denies chest pain, palpitations admits leg swelling and NOWAK Pulm.: denies cough, shortness of breath, hemoptysis admits white sputum production small volume and stable GI: denies diarrhea, constipation admits globus sensation Physical Exam Constitutional: WD/WN, vitals as above Eyes: PERRL, conjunctivae normal, anicteric sclerae ENMT: external ear and nose normal, oropharynx normal Neck: normal visual inspection Respiratory: - fine crackles on exam throughout - able to speak in full sentences Cardiovascular: RRR, no murmur, no edema Gastrointestinal (Abdomen): normal bowel sounds, soft, nontender, no hepatosplenomegaly Musculoskeletal: no cyanosis or clubbing, extremities motor strength 5/5 Skin: no rashes, warm and dry Neurologic: no focal motor deficits Psychiatric: Orientation: alert and oriented x 3 Results & Data Results & Data ([facility]) Vital Signs (Past 12 Hours) Vital Signs Temp Pulse Resp BP Pulse Ox 11/07/20 20:20 60 17 99 11/07/20 20:10 60 12 99 11/07/20 20:00 60 18 154/63 H 99 11/07/20 19:50 63 19 100 11/07/20 19:40 60 28 H 100 11/07/20 19:30 60 25 H 154/65 H 100 11/07/20 19:20 60 16 100 11/07/20 19:10 60 22 100 11/07/20 19:00 61 19 134/68 99 11/07/20 18:50 60 18 100 11/07/20 18:40 60 11 L 100 11/07/20 18:30 60 18 158/64 H 100 11/07/20 18:00 60 15 172/74 H 99 11/07/20 17:30 60 19 171/74 H 100 11/07/20 17:01 62 22 173/83 H 98 11/07/20 17:00 60 24 99 11/07/20 16:50 60 21 167/73 H 98 11/07/20 16:35 99 11/07/20 15:02 36.7 C 61 18 182/91 H 92 CBC Results Results Complete Blood Count Results: RBC 4.02 M/uL (4.2-5.4) L 11/07/20 WBC 7.41 K/uL (4.8-10.8) 11/07/20 Hgb 10.6 g/dL (12.0-16.0) L 11/07/20 Hct 34.3 % (37-47) L 11/07/20 Plt Count 183 K/uL (130-400) 11/07/20 Chemistry (BMP) Results BMP Results: Sodium 132 mmol/L (136-145) L 11/08/20 Potassium 4.1 mmol/L (3.5-5.1) 11/08/20 Chloride 93 mmol/L (98-107) L 11/08/20 BUN 19 mg/dl (7-18) H 11/08/20 Creatinine 0.51 mg/dl (0.6-1.2) L 11/08/20 Glucose 84 mg/dl (70-99) 11/08/20 Code Status & VTE Plan VTE Prophylaxis Plan VTE Prophylaxis will be ordered: Yes Supervising Physician Co-Signing Physician Notes Attending addendum: I have physically seen this patient, have supervised the medical residents activities, and agree with the H&P unless as otherwise noted. Assessment and Plan: Acute on chronic diastolic heart failure/cardiac pacemaker/valve replacement history/hypertension The patient will be admitted to telemetry for serial cardiac enzymes, serial EKG's, cardiac rhythm monitoring and a 2-D echocardiogram with Dopplers Placed on Lasix 40 mg IV twice daily with supplemental albumin IV Serial BMP and magnesium levels INR therapeutic at 2.7. Continue warfarin and daily PT/INRs Continue aspirin, losartan, eplerenone and metoprolol Hypertension/chronic hyponatremia- Sodium 129 upon admission Check serum and urine osmolalities GERD- Continue pantoprazole 40 mg p.o. twice daily Remaining orders and notations as noted Resident Activity Tracking Resident Involvement: Resident Care Provided Care Provided: Adult Hospital Medicine
[2020-11-07] MEDS ORDERED: FUROSEMIDE 20 MG TAB PO SCH (23:03)
[2020-11-07] MEDS ORDERED: POLYETHYLENE (MIRALAX) 17 GM PACK PO PRN (23:03)
[2020-11-07] MEDS ORDERED: LOPERAMIDE HCL 2 MG CAP PO PRN (23:03)
[2020-11-07] MEDS ORDERED: ACETAMINOPHEN 325 MG TAB PO PRN (23:03)
[2020-11-08] MEDS: ALBUMIN 25% 12.5 GM/50 ML VIAL IV SCH ×2 (00:16→00:34)
[2020-11-08] MEDS: DORZOLAMIDE/TIMOLOL 22.3/6.8MG/ML 10 ML BTL OP SCH ×3 (00:18→20:00)
[2020-11-08] MEDS: PANTOprazole 40 MG TAB PO SCH ×3 (00:19→20:01)
[2020-11-08] MEDS: POTASSIUM CHLORIDE CRTAB 20 MEQ TABCR PO SCH ×3 (00:19→20:01)
[2020-11-08] MEDS: MAGNESIUM CHLORIDE 64MG DELAYED REL TAB PO SCH ×4 (00:20→20:01)
[2020-11-08] MEDS: LOSARTAN POTASSIUM 25 MG TAB PO SCH ×3 (00:22→20:01)
[2020-11-08] MEDS: METOPROLOL TARTRATE 100 MG TAB PO SCH ×3 (00:23→20:01)
[2020-11-08] MEDS: EPLERENONE~ORDER AWAITING ACTION SCH ×3 (00:23→15:04)
[2020-11-08] MEDS: LEVOTHYROXINE SODIUM 100 MCG TABLET PO SCH (05:38)
[2020-11-08 05:53] LABS: INR 2.9 (0.9-1.1); Prothrombin Time 26.7 Seconds (9.0-12.0)
[2020-11-08 06:22] LABS: BUN Creatinine Ratio 36.5 (10-20); Calcium 8.7 mg/dl (8.5-10.1); Creatinine Clr Calc Pharmacy 78.9 ml/min; Est GFR (African American) 98.8; Est GFR (Non-African American) 85.3; Potassium 4.1 mmol/L (3.5-5.1)
[2020-11-08 06:33] LABS: Thyroid Stimulating Hormone 3.4 uIu/ml (0.300-4.500)
--- NOTE | 2020-11-08 08:13 | Hospitalist Progress Note ---
Date of Service November 08, 2020 Assessment & Plan (1) Dizziness: 89 yo F w/ PMHx. of diastolic heart failure, HTN, GERD, valve replacement, hypothyroidism, hyponatremia is here for heart failure exacerbation with shortness of breath and fatigue Acute diastolic heart failure exacerbation - on 2L baseline oxygen - EKG with v. paced rhythm - CXR with cardiomegaly, edema (mild), trace right and small left effusion, and L>R opacities atelectasis vs. pneumonitis - UA normal - troponin normal - Lasix 40 IV in ER, 40 IV lasix ordered for AM - monitor K given increased Lasix dosage - fluid restriction - monitor I's and O's Replaced heart valve - continue warfarin - INR 2.9 - continue ASA Hypervolemic Hyponatremia - Sodium at 132 today - Likely stabilize with diuresis - recheck in AM HTN - continue Losartan, Eplerenone, Metoprolol Reflux - continue PPI Vertigo - Consider vertigospecific physical therapy at her personal [facility] Code: Full code Diet: HH and sodium restriction DVT prophylaxis: Warfarin Dispo: MedSurg with telemetry, improving, likely discharge tomorrow or next day (2) Acute hyponatremia: (3) CHF (congestive heart failure): (4) Hyponatremia: (5) HTN (hypertension): Admission and Anticipated Discharge Date Admission Date: November 07, 2020 Supervising Physician Co-Signing Physician Notes I personally examined the patient and verified all mendoza points of history and exam, discussed case, and agree with decision making with Dr Ta. Breathing feeling better, but not yet back to baseline. Lives in [facility]. Notes that she has vertigo, and has had a few falls in the last year, but not all the time. Wonders about diet as it relates to her sodium, as well as her CHF. Vitals noted, in general she is awake and alert pleasant no distress. HEENT normocephalic atraumatic mucous membranes moist. Lungs show bibasilar rales no rhonchi no wheezes good effort. Skin shows no rashes, no pallor or icterus. Acute on chronic diastolic CHF (HFpEF)continue to diurese. Acute on chronic hypoxic respiratory failure relates to this, seems to be back to around her baseline level of oxygen requirement. Discussed the context of sodium r estriction to prevent volume overload/CHF exacerbation, and the likelihood it will probably have not much of an impact on her serum sodium, but the need to have that followed closely. Dizziness/occasional fallssounds like she would benefit from ongoing PT/OT, particularly with focus on vestibular/balance therapy, as an outpatient Otherwise as above Subjective Patient seen sitting up in bed this morning. States that she is feeling better than when she initially came in. Her breathing is improved. Does inquire about sodium intake and the cause for her low sodium. 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 Also mentions that in the past year or so she has had a handful of falls and is unsure what is causing them. She does state that she has a previous history of vertigo but is unable to state whether dizziness was involved in her falls. Review of Systems Review of Systems: All systems reviewed & are unremarkable except as noted in Subjective Physical Exam Constitutional: WD/WN, vitals as above Eyes: PERRL, conjunctivae normal, anicteric sclerae ENMT: external ear and nose normal, oropharynx normal Neck: normal visual inspection Respiratory: no respiratory distress and no labored breathing - fine crackles on exam at lung bases - able to speak in full sentences Cardiovascular: RRR, no murmur, no edema Gastrointestinal (Abdomen): normal bowel sounds, soft, nontender, no hepatosplenomegaly Musculoskeletal: no cyanosis or clubbing, extremities motor strength 5/5 Skin: no rashes, warm and dry Neurologic: no focal motor deficits Psychiatric: Orientation: alert and oriented x 3 Results & Data Results & Data ([facility]) Vital Signs (Past 12 Hours) Vital Signs Temp Pulse Pulse Resp BP BP BP 11/08/20 07:49 36.6 C 60 16 127/73 11/08/20 03:42 36.4 C L 60 18 111/61 11/08/20 00:21 60 114/54 L 11/07/20 22:46 61 11/07/20 22:25 36.5 C 16 153/70 H 11/07/20 21:10 60 16 11/07/20 21:00 60 20 131/54 L 11/07/20 20:50 60 3 L 11/07/20 20:40 60 11 L 11/07/20 20:30 60 15 114/52 L 11/07/20 20:20 60 17 Pulse Ox 11/08/20 07:49 96 11/08/20 03:42 98 11/08/20 00:21 96 11/07/20 22:46 11/07/20 22:25 95 11/07/20 21:10 11/07/20 21:00 100 11/07/20 20:50 100 11/07/20 20:40 99 11/07/20 20:30 99 11/07/20 20:20 99 Resident Activity Tracking Resident Involvement: Resident Care Provided Care Provided: Adult Hospital Medicine (1) CHF (congestive heart failure) Heart failure chronicity: unspecified Heart failure type: unspecified Qualified Code(s): I50.9 - Heart failure, unspecified
[2020-11-08] MEDS ORDERED: FUROSEMIDE 40 MG/4 ML VIAL IV SCH (09:00)
[2020-11-08] MEDS ORDERED: ENOXAPARIN INJ 40 MG/0.4 ML SYR SQ SCH (09:00)
[2020-11-08] MEDS: ASPIRIN 81 MG ECTAB PO SCH (09:12)
[2020-11-08] MEDS: FUROSEMIDE 40 MG in SYRINGE 0 ML IV SCH (09:12)
--- NOTE | 2020-11-08 14:03 | Billing Data ---
Date of Service November 08, 2020 Coding Level of Care Code 99943 Subseq Hosp Care Lvl 3
[2020-11-08] MEDS: WARFARIN SOD 3 MG TAB PO SCH (15:39)
--- NOTE | 2020-11-08 20:31 | Billing Data ---
Date of Service November 08, 2020 Coding Level of Care Code 88225 Initial Inpt Care Lvl 3
[2020-11-09] MEDS: EPLERENONE~ORDER AWAITING ACTION SCH ×4 (01:11→21:52)
[2020-11-09 06:23] LABS: Basophils # (auto) 0.01 K/uL (0-0.2); Basophils % (auto) 0.1 %; Eosinophils # (auto) 0.05 K/uL (0-0.5); Eosinophils % (auto) 0.7 %; Hematocrit (blood only) 32.5 % (37-47); Hemoglobin 9.8 g/dL (12.0-16.0); Immature Granulocytes # (auto) 0.02 K/uL (0.00-0.02); Immature Granulocytes % (auto) 0.3 %; Lymphocytes # (auto) 1.02 K/uL (1.2-3.4); Lymphocytes % (auto) 14.9 %; Mean Corpuscular Hemoglobin 26.1 pg (25-34); Mean Corpuscular Hgb Conc 30.2 g/dL (32-36); Mean Corpuscular Volume 86.7 fL (80-100); Mean Platelet Volume 9.6 fL (7.4-10.4); Monocytes # (auto) 0.79 K/uL (0.11-0.59); Monocytes % (auto) 11.5 %; Neutrophils # (auto) 4.96 K/uL (1.4-6.5); Neutrophils % (auto) 72.5 %; Platelet Count 145 K/uL (130-400); RDW Coefficient of Variation 21.9 % (11.5-14.5); RDW Standard Deviation 69.9 fL (36.4-46.3); Red Blood Count 3.75 M/uL (4.2-5.4); White Blood Count 6.85 K/uL (4.8-10.8)
[2020-11-09] MEDS: LEVOTHYROXINE SODIUM 100 MCG TABLET PO SCH (06:27)
[2020-11-09 06:44] LABS: BUN Creatinine Ratio 41.7 (10-20); Calcium 9.1 mg/dl (8.5-10.1); Creatinine Clr Calc Pharmacy 83.3 ml/min; Est GFR (African American) 100.8; Potassium 4.5 mmol/L (3.5-5.1)
[2020-11-09 06:50] LABS: Anisocytosis Present; Poikilocytosis Present
--- NOTE | 2020-11-09 06:50 | Hospitalist Progress Note ---
Date of Service November 09, 2020 Assessment & Plan (1) Dizziness: 89 yo F w/ PMHx. of diastolic heart failure, HTN, GERD, valve replacement, hypothyroidism, hyponatremia is here for heart failure exacerbation with shortness of breath and fatigue Acute diastolic heart failure exacerbation - Utilizes 2L O2 at home (baseline) - General cardiac work-up as follows: - EKG with v. paced rhythm - Admitting CXR with cardiomegaly, edema (mild), trace right and small left effusion, and L>R opacities atelectasis vs. pneumonitis - UA normal - Troponin normal - Echo (09/18): LVEF 65. Moderate LVH with severe RV dilation, decreased function. RA and LA severely dilated. Moderate TV, MV regurg. +mechanical AV. - Exam still revealing of 3+ pitting edema, +JVD, +crackles diffusely on exam - Lasix 60mg IV x 1 this AM, consider additional +40mg's p.r.n. - Repeat CXR demonstrating continued interstitial and LLL opacities -- left basilar area showing unchanged effusion with ?atelectasis vs. 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 - Sodium stable ~132 on repeat labs - Continue fluid, salt restriction as above - Continue to monitor - If worsening acutely, consider nephrology consult Mechanical AV Valve - Continue home warfarin - Goal INR 2-3 -- currently meeting HTN - continue Losartan, Eplerenone, Metoprolol - continue ASA Reflux - continue PPI Vertigo - Consider vertigospecific physical therapy at her personal [facility] Code: Full code Diet: HH and sodium restriction DVT prophylaxis: Warfarin Dispo: MedSurg with telemetry, improving -- suspect d/c Tuesday (2) Acute hyponatremia: (3) CHF (congestive heart failure): (4) Hyponatremia: (5) HTN (hypertension): Admission and Anticipated Discharge Date Admission Date: November 07, 2020 Supervising Physician Co-Signing Physician Notes I personally examined the patient and verified all mendoza points of history and exam, discussed case, and agree with decision making with Dr Ta. Breathing is better than before, but not yet back to baseline. Vitals noted, in general she is awake and alert pleasant no distress. HEENT normocephalic atraumatic mucous membranes moist. Lungs show bibasilar rales about a third of the way up no rhonchi no wheezes good effort. Skin shows no rashes, no pallor or icterus. Chest x-ray reviewed Acute on chronic diastolic CHF (HFpEF)continue to diureseappears to be improving, but still with rales and breathing does not quite yet feel back to baselineadditional Lasix this afternoon. Acute on chronic hypoxic respiratory failure relates to this, seems to be back to around her baseline level of oxygen requirement. Atelectasis likely playing a role as wellincentive spirometry every hour while awake. Previously discussed the context of sodium restriction to prevent volume overload/CHF exacerbation, and the likelihood it will probably have not much of an impact on her serum sodium, but the need to have that followed closely. Dizziness/occasional fallssounds like she would benefit from ongoing PT/OT, particularly with focus on vestibular/balance therapy, as an outpatient Otherwise as above Subjective Feeling OK this morning. Did report that her nose and mouth feel dry and it was tough breathing because of this, but doesn't feel deep in her chest. Feels breathing is overall somewhat better. No chest pain or palpitations Does report a good appetite, feeling thirsty No nausea, vomiting, diarrhea Review of Systems Review of Systems: As per HPI Physical Exam Physical Exam: General: Clarisse is a 89-year-old F who is alert, oriented, and appears in no acute distress. HEENT: NCAT. Mouth - MMM with no tonsillar edema or exudates. Nose - nasal turbinates are uninflamed and without discharge. Ears - External ears appears h ealthy b/l with no erythema or rashes; TMs displayed white reflex b/l and are non-bulging, uninflamed, and reveal no signs of fluid accumulation. Neck - supple and without LAD. Thyroid - no appreciable goiter or nodules. Cardiac: Normal rate and regular rhythm; S1 and S2 present with no murmurs, rubs, or gallops. Pulmonary: Good respiratory effort with symmetric expansion of the chest. No use of accessory muscles. Lungs were clear to auscultation bilaterally with no crackles or wheezes. Abdominal: Normoactive bowel sounds. Abdomen was soft, nondistended, and non- tender to palpation. No hepatomegaly or splenomegaly. Extremities: Upper and lower extremities are warm and well perfused. Radial and dorsalis pedis pulses were 2+ b/l. Capillary refill assessed in UE was < 3 sec. Psych: Well-developed, well-nourished, appropriately dressed for occasion. Behavior is cooperative and appropriate. Affect is WNL. Insight is appropriate. Results & Data Results & Data ([facility]) Vital Signs (Past 12 Hours) Vital Signs Temp Pulse Pulse Resp BP Pulse Ox 11/09/20 03:11 36.5 C 60 18 123/66 93 11/09/20 01:21 60 11/08/20 22:50 36.5 C 60 18 139/74 97 11/08/20 19:32 36.5 C 64 20 124/64 92 Resident Activity Tracking Resident Involvement: Resident Care Provided Care Provided: Adult Hospital Medicine (1) CHF (congestive heart failure) Heart failure chronicity: unspecified Heart failure type: unspecified Qualified Code(s): I50.9 - Heart failure, unspecified
[2020-11-09] MEDS: ASPIRIN 81 MG ECTAB PO SCH (08:54)
[2020-11-09] MEDS: PANTOprazole 40 MG TAB PO SCH ×2 (08:55→20:21)
[2020-11-09] MEDS: POTASSIUM CHLORIDE CRTAB 20 MEQ TABCR PO SCH ×2 (08:55→20:22)
[2020-11-09] MEDS: MAGNESIUM CHLORIDE 64MG DELAYED REL TAB PO SCH ×3 (08:55→20:21)
[2020-11-09] MEDS: LOSARTAN POTASSIUM 25 MG TAB PO SCH ×2 (08:55→20:20)
[2020-11-09] MEDS: DORZOLAMIDE/TIMOLOL 22.3/6.8MG/ML 10 ML BTL OP SCH ×2 (08:56→20:20)
[2020-11-09] MEDS: METOPROLOL TARTRATE 100 MG TAB PO SCH ×2 (08:56→20:21)
[2020-11-09] MEDS ORDERED: FUROSEMIDE 60 MG in SYRINGE 0 ML IV ONE (09:00)
--- NOTE | 2020-11-09 10:43 | XRay Report ---
XR chest 1V portable HISTORY: 89 years-old Female pulm edema/sob acute shortness of breath COMPARISON: Chest radiograph 11/07/2020 TECHNIQUE: Portable AP view of the chest FINDINGS: Patient is slightly rotated towards the left. Prior median sternotomy with cardiac valvular prosthesi s. Left subclavian pacer. No pneumothorax. Unchanged trace right and small left pleural effusions wit h persistent linear right basilar lateral left midlung opacities suggestive of atelectasis. Airspace opacities of the left lung base. Pulmonary vascular congestion with unchanged mild interstitial coars ening. Degenerative changes of the shoulders and spine. IMPRESSION: 1. Cardiomegaly with suggested mild pulmonary edema. 2. Unchanged small left and trace right pleural effusions. 3. Left basilar airspace opacities suggestive of atelectasis versus pneumonia. ACT 112: Negative or not required by law. The above report was generated using voice recognition software. It may contain grammatical, syntax o r spelling errors. Electronically signed by: Bret Casas M.D. 11/09/2020 10:42 AM
[2020-11-09] MEDS ORDERED: FUROSEMIDE 40 MG in SYRINGE 0 ML IV ONE (14:35)
--- NOTE | 2020-11-09 14:38 | Billing Data ---
Date of Service November 09, 2020 Coding Level of Care Code 79470 Subseq Hosp Care Lvl 3
[2020-11-09] MEDS: WARFARIN SOD 3 MG TAB PO SCH (15:37)
--- NOTE | 2020-11-09 20:34 | Electrocardiogram Report ---
Test Reason : Blood Pressure : / mmHG Vent. Rate : 061 BPM Atrial Rate : 063 BPM P-R Int : 000 ms QRS Dur : 206 ms QT Int : 502 ms P-R-T Axes : 000 -78 112 degrees QTc Int : 505 ms Ventricular-paced rhythm Abnormal ECG When compared with ECG of 18-SEP-2020 08:57, No significant change was found Confirmed by Donald Simmons ([id number]) on 11/09/2020 8:34:07 PM Referred By: Donato [facility] Confirmed By:Donald Simmons
[2020-11-10] MEDS: LEVOTHYROXINE SODIUM 100 MCG TABLET PO SCH (04:54)
[2020-11-10 06:27] LABS: BUN Creatinine Ratio 37.1 (10-20); Calcium 8.7 mg/dl (8.5-10.1); Creatinine Clr Calc Pharmacy 76.9 ml/min; Est GFR (African American) 98.2; Est GFR (Non-African American) 84.7; Potassium 4.1 mmol/L (3.5-5.1)
[2020-11-10] MEDS ORDERED: SODIUM CHLORIDE 0.65% NA SOLN 45 ML (OCEAN) PRN (07:44)
[2020-11-10] MEDS: METOPROLOL TARTRATE 100 MG TAB PO SCH ×2 (09:10→21:08)
[2020-11-10] MEDS: PANTOprazole 40 MG TAB PO SCH ×2 (09:10→21:07)
[2020-11-10] MEDS: ASPIRIN 81 MG ECTAB PO SCH (09:10)
[2020-11-10] MEDS: DORZOLAMIDE/TIMOLOL 22.3/6.8MG/ML 10 ML BTL OP SCH ×2 (09:11→21:07)
[2020-11-10] MEDS: LOSARTAN POTASSIUM 25 MG TAB PO SCH ×2 (09:11→21:07)
[2020-11-10] MEDS: MAGNESIUM CHLORIDE 64MG DELAYED REL TAB PO SCH ×3 (09:11→21:08)
[2020-11-10] MEDS: POTASSIUM CHLORIDE CRTAB 20 MEQ TABCR PO SCH ×2 (09:11→21:08)
[2020-11-10] MEDS: EPLERENONE~ORDER AWAITING ACTION SCH ×2 (09:11→14:57)
[2020-11-10] MEDS: FUROSEMIDE 40 MG in SYRINGE 0 ML IV SCH (09:11)
[2020-11-10] MEDS: WARFARIN SOD 3 MG TAB PO SCH (15:57)
--- NOTE | 2020-11-10 16:33 | Hospitalist Progress Note ---
Date of Service November 10, 2020 Assessment & Plan (1) Dizziness: 89 yo F w/ PMHx. of diastolic heart failure, HTN, GERD, valve replacement, hypothyroidism, hyponatremia is here for heart failure exacerbation with shortness of breath and fatigue Acute diastolic heart failure exacerbation with severe right side dysfunction - General cardiac work-up as follows: - EKG with v. paced rhythm - Admitting CXR with cardiomegaly, edema (mild), trace right and small left effusion, and L>R opacities atelectasis vs. pneumonitis - Troponin normal - Echo (09/18): LVEF 65. Moderate LVH with severe RV dilation, decreased function. RA and LA severely dilated. Moderate TV, MV regurg. +mechanical AV. - Exam still revealing of 2+ pitting edema, +JVD, +crackles diffusely on exam - Repeat CXR demonstrating continued interstitial and LLL opacities -- left basilar area showing unchanged effusion with ?atelectasis vs. infiltrative changes - Continue Lasix 40mg IV qAM - Given additional Lasix 40mg IV this PM -- will reassess volume status tomorrow - Fluid Restriction - Daily weights, strict I+Os -- down about 10 lbs since admission Severe Right ventricle and biatrial dilation with Chronic respiratory failure -sec to ? interstitial lung ds. 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 - Sodium stable ~132 on repeat labs - Continue fluid, salt restriction as above - Continue to monitor - If worsening acutely, consider nephrology consult Mechanical AV Valve - Continue home warfarin - Goal INR 2-3 -- currently meeting HTN - continue Losartan, Eplerenone, Metoprolol - continue ASA Reflux - continue PPI Vertigo - Consider vertigospecific physical therapy at her personal [facility] Code: Full code Diet: HH and sodium restriction DVT prophylaxis: Warfarin Dispo: MedSurg with telemetry, improving (2) Acute hyponatremia: (3) CHF (congestive heart failure): (4) Hyponatremia: (5) HTN (hypertension): Admission and Anticipated Discharge Date Admission Date: November 07, 2020 Supervising Physician Co-Signing Physician Notes Resident Physician Supervision Note: I independently interviewed and examined the patient and verified the mendoza history and physical, reviewed labs and image studies, discussed the case with the resident Dr. Ta and agree with the findings and care plan. Subjective No acute events overnight. Patient sitting up in bed comfortably. Reports that she has been breathing better only complains of dry nasal passages and has now been provided with intranasal saline spray as needed. Review of systems otherwise negative Review of Systems Review of Systems: All systems reviewed & are unremarkable except as noted in Subjective Physical Exam Physical Exam: General: alert, oriented, and appears in no acute distress. Cardiac: Normal rate and regular rhythm; S1 and S2 present with no murmurs, rubs, or gallops. Pulmonary: Good respiratory effort with symmetric expansion of the chest. No use of accessory muscles. Lungs with diffuse crackles. Abdominal: Normoactive bowel sounds. Abdomen was soft, nondistended, and non- tender to palpation. No hepatomegaly or splenomegaly. Extremities: Upper and lower extremities are warm and well perfused. Radial and dorsalis pedis pulses were 2+ b/l. Capillary refill assessed in UE was < 3 sec. 2+ pitting edema bilaterally up to knees. Psych: Well-developed, well-nourished, appropriately dressed for occasion. Behavior is cooperative and appropriate. Affect is WNL. Insight is appropriate. Results & Data Results & Data ([facility]) Vital Signs (Past 12 Hours) Vital Signs Temp Pulse Resp BP Pulse Ox 11/10/20 11:23 36.7 C 82 16 114/61 92 11/10/20 07:58 36.4 C L 65 16 121/57 L 98 Resident Activity Tracking Resident Involvement: Resident Care Provided Care Provided: Adult Hospital Medicine (1) CHF (congestive heart failure) Heart failure chronicity: unspecified Heart failure type: unspecified Qualified Code(s): I50.9 - Heart failure, unspecified
[2020-11-10] MEDS ORDERED: FUROSEMIDE 40 MG in SYRINGE 0 ML IV ONE (16:45)
[2020-11-10] MEDS: LORazepam 0.5 MG TAB PO PRN (21:06)
[2020-11-10] MEDS: MELATONIN 3 MG TAB PO PRN (21:06)
[2020-11-11] MEDS: EPLERENONE~ORDER AWAITING ACTION SCH ×3 (06:07→15:30)
[2020-11-11] MEDS: LEVOTHYROXINE SODIUM 100 MCG TABLET PO SCH (06:35)
[2020-11-11 07:47] LABS: BUN Creatinine Ratio 33.7 (10-20); Calcium 9.2 mg/dl (8.5-10.1); Creatinine Clr Calc Pharmacy 62.8 ml/min; Est GFR (African American) 92.2; Est GFR (Non-African American) 79.5; Potassium 4.3 mmol/L (3.5-5.1)
[2020-11-11] MEDS: FUROSEMIDE 40 MG in SYRINGE 0 ML IV SCH (08:08)
[2020-11-11] MEDS: POTASSIUM CHLORIDE CRTAB 20 MEQ TABCR PO SCH ×2 (08:08→21:24)
[2020-11-11] MEDS: DORZOLAMIDE/TIMOLOL 22.3/6.8MG/ML 10 ML BTL OP SCH ×2 (08:08→21:24)
[2020-11-11] MEDS: PANTOprazole 40 MG TAB PO SCH ×2 (08:09→21:24)
[2020-11-11] MEDS: METOPROLOL TARTRATE 100 MG TAB PO SCH ×2 (08:09→21:24)
[2020-11-11] MEDS: MAGNESIUM CHLORIDE 64MG DELAYED REL TAB PO SCH ×3 (08:09→21:24)
[2020-11-11] MEDS: ASPIRIN 81 MG ECTAB PO SCH (08:09)
[2020-11-11] MEDS: LOSARTAN POTASSIUM 25 MG TAB PO SCH (08:09)
--- NOTE | 2020-11-11 11:37 | CT Scan Report ---
CT chest HighRes diag wo con CLINICAL HISTORY: Evaluate for interstitial lung disease. COMPARISON STUDY: Chest radiograph November 09, 2020. Chest CT March 21, 2020. TECHNIQUE: Thin cut axial images of the chest were obtained in supine position during inspiration and expiration. Patient was unable to do prone imaging. No intravenous contrast was administered. Automa roshan exposure control was utilized for the study. A dose lowering technique was utilized adhering to the principles of ALARA. FINDINGS: Mediastinal wires are noted. 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 Dilatation of the ascending aorta, measuring 4.9 cm has slightly increased since CT of March 21, 2020 when measured 4.7 cm. Marked cardiomegaly is noted. There is no pericardial ef fusion. Dilatation of the proximal left subclavian artery is unchanged. No enlarged thoracic lymph no darlene are noted. Small left and trace right pleural effusions are noted. This exam is compromised by re spiratory motion artifact. Interlobular septal thickening is noted with groundglass opacities within the lungs. No honeycombing is present. Sensitivity for detection of interstitial lung disease is dimi nished on this exam. Several old thoracic spine compression fractures are present. Visualized portion s of the upper abdomen and straight cirrhosis. There is trace perihepatic ascites. Left subclavian pa cer, median sternotomy wires and prosthetic aortic valve are noted. IMPRESSION: 1. Exam compromised by respiratory motion artifact. No convincing CT evidence for interstitial lung d isease. 2. Interstitial thickening consistent with pulmonary edema. Groundglass opacities also likely reflect pulmonary edema. 3. Small left pleural effusion with left lower lobe airspace opacity that favors atelectasis. Trace r ight pleural effusion. 4. Marked cardiomegaly. 5. Slight increase in dilatation of the ascending aorta, measuring 4.9 cm. ACT 112: Negative or not required by law. Electronically signed by: Stephane Mayer M.D. 11/11/2020 11:35 AM
[2020-11-11] MEDS ORDERED: FUROSEMIDE 60 MG in SYRINGE 0 ML IV ONE (13:29)
--- NOTE | 2020-11-11 15:22 | Hospitalist Progress Note ---
Date of Service November 11, 2020 Assessment & Plan (1) Dizziness: 89 yo F w/ PMHx. of diastolic heart failure, HTN, GERD, valve replacement, hypothyroidism, hyponatremia is here for heart failure exacerbation with shortness of breath and fatigue Acute diastolic heart failure exacerbation with severe right side dysfunction - General cardiac work-up as follows: - EKG with v. paced rhythm - Admitting CXR with cardiomegaly, edema (mild), trace right and small left effusion, and L>R opacities atelectasis vs. pneumonitis - Troponin normal - Echo (09/18): LVEF 65. Moderate LVH with severe RV dilation, decreased function. RA and LA severely dilated. Moderate TV, MV regurg. +mechanical AV. - Exam still revealing of 2+ pitting edema, +JVD, +crackles on exam - Repeat CXR demonstrating continued interstitial and LLL opacities -- left basilar area showing unchanged effusion with ?atelectasis vs. infiltrative changes - Continue Lasix 40mg IV qAM - Given additional Lasix 60mg IV this PM -- will reassess volume status tomorrow and give additional as needed - Consider switch from PO Lasix to PO Bumex at discharge as it would have better absorption intestinally in the setting of cirrhosis with possible GI edema as noted on HighRes CT below - Fluid Restriction - Daily weights, strict I+Os -- down about 12 lbs since admission Severe Right ventricle and biatrial dilation with Chronic respiratory failure - Considered ILD as possible cause but HighRes CT findings make it less likely now - Ordered High-resolution Chest CT evaluate possible ILD mentioned in past admission cardio notes: - No convincing CT evidence for interstitial lung disease - Interstitial thickening consistent with pulmonary edema. Groundglass opacities also likely reflect pulmonary edema. - Small left pleural effusion with left lower lobe airspace opacity that favors atelectasis. Trace right pleural effusion. - Marked cardiomegaly - Slight increase in dilatation of the ascending aorta, measuring 4.9 cm - Visualized portions of the upper abdomen and straight cirrhosis. There is trace perihepatic ascites. 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 - Sodium stable ~132 on repeat labs - Continue fluid, salt restriction as above - Continue to monitor - If worsening acutely, consider nephrology consult Mechanical AV Valve - Continue home warfarin - Goal INR 2-3 -- currently meeting HTN - continue Losartan, Eplerenone, Metoprolol - continue ASA Reflux - continue PPI Vertigo - Consider vertigospecific physical therapy at her personal [facility] Code: Full code Diet: HH and sodium restriction DVT prophylaxis: Warfarin Dispo: MedSurg with telemetry, improving (2) Acute hyponatremia: (3) CHF (congestive heart failure): (4) Hyponatremia: (5) HTN (hypertension): Admission and Anticipated Discharge Date Admission Date: November 07, 2020 Supervising Physician Co-Signing Physician Notes Resident Physician Supervision Note: I independently interviewed and examined the patient and verified the mendoza history and physical, reviewed labs and image studies, discussed the case with the resident Dr. Ta and agree with the findings and care plan. Subjective No acute events overnight. Patient states that it is hard for her to tell whether she is back to her baseline or not. She does mention that she has been getting short of breath when getting up to walk to the bathroom. When asked if she has the same issue at home she mentions that she does not. Review of Systems Review of Systems: All systems reviewed & are unremarkable except as noted in Subjective Physical Exam Physical Exam: General: alert, oriented, and appears in no acute distress. Cardiac: Normal rate and regular rhythm; S1 and S2 present with no murmurs, rubs, or gallops. Pulmonary: Good respiratory effort with symmetric expansion of the chest. No use of accessory muscles. Lungs with diffuse crackles. Abdominal: Normoactive bowel sounds. Abdomen was soft, nondistended, and non- tender to palpation. No hepatomegaly or splenomegaly. Extremities: Upper and lower extremities are warm and well perfused. Radial and dorsalis pedis pulses were 2+ b/l. Capillary refill assessed in UE was < 3 sec. 2+ pitting edema bilaterally up to knees. Psych: Well-developed, well-nourished, appropriately dressed for occasion. Behavior is cooperative and appropriate. Affect is WNL. Insight is appropriate. Results & Data Results & Data ([facility]) Vital Signs (Past 12 Hours) Vital Signs Temp Pulse Pulse Pulse Resp BP BP 11/11/20 11:41 36.4 C L 62 18 109/61 11/11/20 07:14 36.5 C 62 18 121/59 L 11/11/20 07:11 62 05/04/21 06:18 70 11/11/20 03:46 36.6 C 60 18 128/64 Pulse Ox 11/11/20 11:41 95 11/11/20 07:14 96 11/11/20 07:11 11/11/20 06:18 11/11/20 03:46 98 Resident Activity Tracking Resident Involvement: Resident Care Provided Care Provided: Adult Hospital Medicine (1) CHF (congestive heart failure) Heart failure chronicity: unspecified Heart failure type: unspecified Qualified Code(s): I50.9 - Heart failure, unspecified
[2020-11-11] MEDS: WARFARIN SOD 3 MG TAB PO SCH (16:05)
[2020-11-11] MEDS: MELATONIN 3 MG TAB PO PRN (21:25)
[2020-11-11] MEDS: LORazepam 0.5 MG TAB PO PRN (21:25)
[2020-11-11] MEDS ORDERED: SIMETHICONE 80 MG CHEW PO ONE (21:44)
[2020-11-12] MEDS: EPLERENONE~ORDER AWAITING ACTION SCH ×4 (00:19→23:14)
[2020-11-12] MEDS: LEVOTHYROXINE SODIUM 100 MCG TABLET PO SCH (06:05)
[2020-11-12 06:45] LABS: INR 3.9 (0.9-1.1); Prothrombin Time 35.6 Seconds (9.0-12.0)
[2020-11-12 07:03] LABS: BUN Creatinine Ratio 31.4 (10-20); Calcium 8.7 mg/dl (8.5-10.1); Creatinine Clr Calc Pharmacy 57.6 ml/min; Est GFR (African American) 89.5; Est GFR (Non-African American) 77.2; Potassium 4.6 mmol/L (3.5-5.1)
[2020-11-12] MEDS: DORZOLAMIDE/TIMOLOL 22.3/6.8MG/ML 10 ML BTL OP SCH ×2 (08:20→20:20)
[2020-11-12] MEDS: POTASSIUM CHLORIDE CRTAB 20 MEQ TABCR PO SCH ×2 (08:20→20:20)
[2020-11-12] MEDS: FUROSEMIDE 40 MG in SYRINGE 0 ML IV SCH (08:21)
[2020-11-12] MEDS: ASPIRIN 81 MG ECTAB PO SCH (08:21)
[2020-11-12] MEDS: METOPROLOL TARTRATE 100 MG TAB PO SCH ×2 (08:21→20:19)
[2020-11-12] MEDS: MAGNESIUM CHLORIDE 64MG DELAYED REL TAB PO SCH ×3 (08:21→20:19)
[2020-11-12] MEDS: PANTOprazole 40 MG TAB PO SCH ×2 (08:22→20:20)
--- NOTE | 2020-11-12 09:28 | Hospitalist Progress Note ---
Date of Service November 12, 2020 Assessment & Plan (1) Dizziness: 89 yo F w/ PMHx. of diastolic heart failure, HTN, GERD, valve replacement, hypothyroidism, hyponatremia is here for heart failure exacerbation with shortness of breath and fatigue Acute diastolic heart failure exacerbation with severe right side dysfunction - General cardiac work-up as follows: - EKG with v. paced rhythm - Admitting CXR with cardiomegaly, edema (mild), trace right and small left effusion, and L>R opacities atelectasis vs. pneumonitis - Troponin normal - Echo (09/18): LVEF 65. Moderate LVH with severe RV dilation, decreased function. RA and LA severely dilated. Moderate TV, MV regurg. +mechanical AV. - Exam still revealing of 2+ pitting edema, +JVD, +crackles on exam - Repeat CXR demonstrating continued interstitial and LLL opacities -- left basilar area showing unchanged effusion with ?atelectasis vs. infiltrative changes -Lasix 40 mg IV every morning discontinued after this morning's dose -Start Bumex 1.5 mg IV every morning -Plan for additional Bumex 1.5 mg IV this afternoon will reassess fluid status tomorrow - Will switch from PO Lasix to PO Bumex at discharge as it would have better absorption intestinally in the setting of cirrhosis with possible GI edema as noted on HighRes CT below - Fluid Restriction - Daily weights, strict I+Os -- down about 12 lbs since admission Severe Right ventricle and biatrial dilation with Chronic respiratory failure - Considered ILD as possible cause but HighRes CT findings make it less likely now - Ordered High-resolution Chest CT evaluate possible ILD mentioned in past admission cardio notes: - No convincing CT evidence for interstitial lung disease - Interstitial thickening consistent with pulmonary edema. Groundglass opacities also likely reflect pulmonary edema. - Small left pleural effusion with left lower lobe airspace opacity that favors atelectasis. Trace right pleural effusion. - Marked cardiomegaly - Slight increase in dilatation of the ascending aorta, measuring 4.9 cm - Visualized portions of the upper abdomen and straight cirrhosis. There is trace perihepatic ascites. 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 - Sodium stable ~132 on repeat labs - Continue fluid, salt restriction as above - Continue to monitor - If worsening acutely, consider nephrology consult Mechanical AV Valve - Continue home warfarin - Goal INR 2-3 -- currently meeting HTN - continue Losartan, Eplerenone, Metoprolol - continue ASA Reflux - continue PPI Vertigo - Consider vertigospecific physical therapy at her personal alf Code: Full code Diet: HH and sodium restriction DVT prophylaxis: Warfarin Dispo: MedSurg with telemetry, improving (2) Acute hyponatremia: (3) CHF (congestive heart failure): (4) Hyponatremia: (5) HTN (hypertension): Admission and Anticipated Discharge Date Admission Date: November 07, 2020 Supervising Physician Co-Signing Physician Notes Resident Physician Supervision Note: I independently interviewed and examined the patient and verified the mendoza history and physical, reviewed labs and image studies, discussed the case with the resident Dr. Ta and agree with the findings and care plan. Subjective No acute events overnight. Patient seen this morning sitting at bedside chair comfortably. Feet are propped up. She reports that she still feels somewhat short of breath, essentially the same as yesterday. She does have a -1 L fluid balance in the last 24 hours, making her a total of 1 L negative throughout her hospital stay. Review of Systems 2 Review of Systems: All systems reviewed & are unremarkable except as noted in Subjective Physical Exam Physical Exam: General: alert, oriented, and appears in no acute distress. Cardiac: Normal rate and regular rhythm; S1 and S2 present with no murmurs, rubs, or gallops. JVD noted. Pulmonary: Good respiratory effort with symmetric expansion of the chest. No use of accessory muscles. Lungs with diffuse crackles and decreased lung sounds at bases. Abdominal: Normoactive bowel sounds. Abdomen was soft, nondistended, and non- tender to palpation. No hepatomegaly or splenomegaly. Extremities: Upper and lower extremities are warm and well perfused. Radial and dorsalis pedis pulses were 2+ b/l. Capillary refill assessed in UE was < 3 sec. 2+ pitting edema bilaterally up to knees. Psych: Well-developed, well-nourished, appropriately dressed for occasion. Behavior is cooperative and appropriate. Affect is WNL. Insight is appropriate. Results & Data Results & Data ([facility]) Vital Signs (Past 12 Hours) Vital Signs Temp Pulse Pulse Pulse Resp BP Pulse Ox 11/12/20 07:28 36.3 C L 67 18 117/64 96 11/12/20 03:00 36.3 C L 61 20 133/70 98 11/12/20 00:22 62 11/11/20 23:00 36.5 C 60 20 109/61 97 Resident Activity Tracking Resident Involvement: Resident Care Provided Care Provided: Adult Hospital Medicine (1) CHF (congestive heart failure) Heart failure chronicity: unspecified Heart failure type: unspecified Qualified Code(s): I50.9 - Heart failure, unspecified
[2020-11-12] MEDS ORDERED: BUMETANIDE 1.5 MG in SYRINGE 0 ML IV ONE (16:00)
[2020-11-12] MEDS: LORazepam 0.5 MG TAB PO PRN (20:30)
[2020-11-12] MEDS: MELATONIN 3 MG TAB PO PRN (20:30)
[2020-11-13] MEDS: LEVOTHYROXINE SODIUM 100 MCG TABLET PO SCH (07:17)
[2020-11-13 07:43] LABS: INR 3.8 (0.9-1.1); Prothrombin Time 34.5 Seconds (9.0-12.0)
[2020-11-13 07:55] LABS: BUN Creatinine Ratio 33.4 (10-20); Calcium 9.4 mg/dl (8.5-10.1); Creatinine Clr Calc Pharmacy 54.2 ml/min; Est GFR (African American) 83.2; Est GFR (Non-African American) 71.8
[2020-11-13] MEDS: EPLERENONE~ORDER AWAITING ACTION SCH ×3 (09:10→23:20)
[2020-11-13] MEDS: MAGNESIUM CHLORIDE 64MG DELAYED REL TAB PO SCH ×3 (09:15→20:30)
[2020-11-13] MEDS: POTASSIUM CHLORIDE CRTAB 20 MEQ TABCR PO SCH ×2 (09:15→20:31)
[2020-11-13] MEDS: METOPROLOL TARTRATE 100 MG TAB PO SCH ×2 (09:15→20:30)
[2020-11-13] MEDS: PANTOprazole 40 MG TAB PO SCH ×2 (09:15→20:31)
[2020-11-13] MEDS: DORZOLAMIDE/TIMOLOL 22.3/6.8MG/ML 10 ML BTL OP SCH ×2 (09:15→20:29)
[2020-11-13] MEDS: ASPIRIN 81 MG ECTAB PO SCH (09:15)
[2020-11-13] MEDS: BUMETANIDE 1.5 MG in SYRINGE 0 ML IV SCH (10:35)
[2020-11-13] MEDS ORDERED: Nursing to Pharmacy Communication SCH ×2 (13:00)
--- NOTE | 2020-11-13 16:13 | Hospitalist Progress Note ---
Date of Service November 13, 2020 Assessment & Plan (1) Dizziness: 89 yo F w/ PMHx. of diastolic heart failure, HTN, GERD, valve replacement, hypothyroidism, hyponatremia is here for heart failure exacerbation with shortness of breath and fatigue Acute diastolic heart failure exacerbation with severe right side dysfunction - General cardiac work-up as follows: - EKG with v. paced rhythm - Admitting CXR with cardiomegaly, edema (mild), trace right and small left effusion, and L>R opacities atelectasis vs. pneumonitis - Troponin normal - Echo (09/18): LVEF 65. Moderate LVH with severe RV dilation, decreased function. RA and LA severely dilated. Moderate TV, MV regurg. +mechanical AV. - Exam still revealing of 2+ pitting edema, +JVD, +crackles on exam - Repeat CXR demonstrating continued interstitial and LLL opacities -- left basilar area showing unchanged effusion with ?atelectasis vs. infiltrative changes -Lasix 40 mg IV every morning discontinued after this morning's dose -Continue Bumex 1.5 mg IV qAM - Will switch from PO Lasix to PO Bumex at discharge as it would have better absorption intestinally in the setting of cirrhosis with possible GI edema as noted on HighRes CT below - Fluid Restriction - Daily weights, strict I+Os -- down about 12 lbs since admission -Likely discharge tomorrow, pending PT evaluation required by personal [facility] Severe Right ventricle and biatrial dilation with Chronic respiratory failure - Considered ILD as possible cause but HighRes CT findings make it less likely now - Ordered High-resolution Chest CT evaluate possible ILD mentioned in past admission cardio notes: - No convincing CT evidence for interstitial lung disease - Interstitial thickening consistent with pulmonary edema. Groundglass opacities also likely reflect pulmonary edema. - Small left pleural effusion with left lower lobe airspace opacity that favors atelectasis. Trace right pleural effusion. - Marked cardiomegaly - Slight increase in dilatation of the ascending aorta, measuring 4.9 cm - Visualized portions of the upper abdomen and straight cirrhosis. There is trace perihepatic ascites. 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 - Sodium stable ~132 on repeat labs - Monitor Mechanical AV Valve - Continue home warfarin - Goal INR 2-3 -- currently meeting HTN - continue Losartan, Eplerenone, Metoprolol - continue ASA Reflux - continue PPI Vertigo - Consider vertigospecific physical therapy at her personal [facility] Code: Full code Diet: HH and sodium restriction DVT prophylaxis: Warfarin Dispo: MedSurg with telemetry, improving (2) Acute hyponatremia: (3) CHF (congestive heart failure): (4) Hyponatremia: (5) HTN (hypertension): Admission and Anticipated Discharge Date Admission Date: November 07, 2020 Supervising Physician Co-Signing Physician Notes Resident Physician Supervision Note: I independently interviewed and examined the patient and verified the mendoza history and physical, reviewed labs and image studies, discussed the case with the resident Dr. Ta and agree with the findings and care plan. Subjective Patient seen sitting at bedside chair comfortably this morning. She mentions that her legs continue to be somewhat swollen. Says that she is not feeling particularly short of breath. Feels fairly comfortable though she is little tired. She says she is unable to sleep as well in the hospital. Review of Systems Review of Systems: All systems reviewed & are unremarkable except as noted in Subjective Physical Exam Physical Exam: General: alert, oriented, and appears in no acute distress. Cardiac: Normal rate and regular rhythm; S1 and S2 present with no murmurs, rubs, or gallops. JVD noted. Pulmonary: Good respiratory effort with symmetric expansion of the chest. No use of accessory muscles. Lungs with crackles and decreased lung sounds at bases. Abdominal: Normoactive bowel sounds. Abdomen was soft, nondistended, and non- tender to palpation. No hepatomegaly or splenomegaly. Extremities: Upper and lower extremities are warm and well perfused. Radial and dorsalis pedis pulses were 2+ b/l. Capillary refill assessed in UE was < 3 sec. 2+ pitting edema bilaterally up to knees. Psych: Well-developed, well-nourished, appropriately dressed for occasion. Behavior is cooperative and appropriate. Affect is WNL. Insight is appropriate. Results & Data Results & Data ([facility]) Vital Signs (Past 12 Hours) Vital Signs Temp Pulse Pulse Pulse Resp BP Pulse Ox 11/13/20 14:56 36.6 C 58 L 18 134/62 98 11/13/20 14:20 60 11/13/20 10:30 36.4 C L 82 20 146/64 H 97 11/13/20 09:15 66 103/56 L 11/13/20 07:00 61 11/13/20 06:49 36.3 C L 62 18 123/61 93 Resident Activity Tracking Resident Involvement: Resident Care Provided Care Provided: Adult Hospital Medicine (1) CHF (congestive heart failure) Heart failure chronicity: unspecified Heart failure type: unspecified Qualified Code(s): I50.9 - Heart failure, unspecified
[2020-11-13] MEDS: MELATONIN 3 MG TAB PO PRN (20:38)
[2020-11-13] MEDS: LORazepam 0.5 MG TAB PO PRN (20:38)
[2020-11-13] MEDS ORDERED: NETARSUDIL 0.02% OP SCH (21:00)
[2020-11-14] MEDS ORDERED: SIMETHICONE 80 MG CHEW PO STA (02:56)
[2020-11-14] MEDS: LEVOTHYROXINE SODIUM 100 MCG TABLET PO SCH (05:51)
[2020-11-14 06:16] LABS: INR 3.3 (0.9-1.1); Prothrombin Time 30.3 Seconds (9.0-12.0)
[2020-11-14 07:50] LABS: BUN Creatinine Ratio 44.3 (10-20); Calcium 8.9 mg/dl (8.5-10.1); Creatinine Clr Calc Pharmacy 61.6 ml/min; Est GFR (African American) 91.2; Est GFR (Non-African American) 78.7; Potassium 5.1 mmol/L (3.5-5.1)
[2020-11-14] MEDS: MAGNESIUM CHLORIDE 64MG DELAYED REL TAB PO SCH (08:35)
[2020-11-14] MEDS: METOPROLOL TARTRATE 100 MG TAB PO SCH (08:35)
[2020-11-14] MEDS: POTASSIUM CHLORIDE CRTAB 20 MEQ TABCR PO SCH (08:35)
[2020-11-14] MEDS: ASPIRIN 81 MG ECTAB PO SCH (08:35)
[2020-11-14] MEDS: BUMETANIDE 1.5 MG in SYRINGE 0 ML IV SCH (08:35)
[2020-11-14] MEDS: DORZOLAMIDE/TIMOLOL 22.3/6.8MG/ML 10 ML BTL OP SCH (08:35)
[2020-11-14] MEDS: EPLERENONE~ORDER AWAITING ACTION SCH (08:36)
[2020-11-14] MEDS: PANTOprazole 40 MG TAB PO SCH (08:36)
--- NOTE | 2020-11-14 09:48 | Discharge Summary ---
Date of Service November 14, 2020 Admission HPI Per Admitting Provider Clarisse Mo is here for shortness of breath, fatigue, and confusion. She is coming from [facility] where she has been for 3 weeks, previously at [facility] and before that was admitted for a fall. She is feeling good otherwise and has a good appetite. She has had trouble with staying asleep though but does not note orthopnea. She has low sodium chronically and did take salt tablets in the distant past. She has had increased oxygen requirement initially just using oxygen at night but since she was at [facility] she started using oxygen during the day to 2L chronically. She was last seen by cardiology on 09/23. Hx. of diastolic heart failure with last ECHO in 09/18: left systolic function nl. concentric hypertrophy, mod-severe dilation of the right ventricular dilation, left and right atrium dilation, moderate mitral and tricuspid regurg. right ventricular systolic pressure of 50-60. She had limited fluid intake at [facility]. She was seen previously at [place] for gallstones that were treated with EGD extraction. Admission Exam Per Admitting Provider Constitutional: WD/WN, vitals as above Eyes: PERRL, conjunctivae normal, anicteric sclerae ENMT: external ear and nose normal, oropharynx normal Neck: normal visual inspection Respiratory: - fine crackles on exam throughout - able to speak in full sentences Cardiovascular: RRR, no murmur, no edema Gastrointestinal (Abdomen): normal bowel sounds, soft, nontender, no hepatosplenomegaly Musculoskeletal: no cyanosis or clubbing, extremities motor strength 5/5 Skin: no rashes, warm and dry Neurologic: no focal motor deficits Psychiatric: Orientation: alert and oriented x 3 Principal Diagnosis CHF exacerbation Discharge Exam General: alert, oriented, and appears in no acute distress. Cardiac: Normal rate and regular rhythm; S1 and S2 present with no murmurs, rubs, or gallops. No JVD noted. Pulmonary: Good respiratory effort with symmetric expansion of the chest. No use of accessory muscles. Lungs with decreased lung sounds at bases. Abdominal: Normoactive bowel sounds. Abdomen was soft, nondistended, and non- tender to palpation. No hepatomegaly or splenomegaly. Extremities: Upper and lower extremities are warm and well perfused. Radial and dorsalis pedis pulses were 2+ b/l. Capillary refill assessed in UE was < 3 sec. 1+ pitting edema bilaterally up to knees. Psych: Well-developed, well-nourished, appropriately dressed for occasion. Behavior is cooperative and appropriate. Affect is WNL. Insight is appropriate. Discharge Data Allergies Allergy/AdvReac Type Severity Reaction Status Date / Time Sulfa (Sulfonamide Allergy Intermediate HIVES Verified 11/07/20 18:24 Antibiotics) Consultations 11/07/20 17:56 ED Decision to Admit Stat Ordered Studies 11/11/20 07:00 CT chest HighRes diag wo con Routine Hospital Course (1) Dizziness: 89 yo F w/ PMHx. of diastolic heart failure, HTN, GERD, valve replacement, hypothyroidism, hyponatremia is here for heart failure exacerbation with shortness of breath and fatigue Acute diastolic heart failure exacerbation with severe right side dysfunction - General cardiac work-up as follows: - EKG with v. paced rhythm - Admitting CXR with cardiomegaly, edema (mild), trace right and small left effusion, and L>R opacities atelectasis vs. pneumonitis - Troponin normal - Echo (09/18): LVEF 65. Moderate LVH with severe RV dilation, decreased function. RA and LA severely dilated. Moderate TV, MV regurg. +mechanical AV. -Initially on Lasix IV -- eventually switched in favor of Bumex 1.5mg IV qAM with additional doses PRN in afternoons - Will switch from PO Lasix to PO Bumex at discharge as it would have better absorption intestinally in the setting of cirrhosis with possible GI edema as noted on HighRes CT below - Will be discharged on Bumex 1mg PO daily as she diuresed significantly with just 1.5mg of Bumex during her last 24 hrs admitted - Recommend close follow-up with PCP for any necessary dosing adjustments Goals of Care - Patient expressed that she is feeling tired going back and forth from the hospital and would like to avoid this in the future - Reached out to palliative care, who will plan to arrange outpatient follow-up with her for discussion of her goals of care going forward - I spoke to patient's son who is also agreeable to this Severe Right ventricle and biatrial dilation with Chronic respiratory failure - Considered ILD as possible cause but HighRes CT findings make it less likely now - Ordered High-resolution Chest CT evaluate possible ILD mentioned in past admission cardio notes: - No convincing CT evidence for interstitial lung disease - Interstitial thickening consistent with pulmonary edema. Groundglass opacities also likely reflect pulmonary edema. - Small left pleural effusion with left lower lobe airspace opacity that favors atelectasis. Trace right pleural effusion. - Marked cardiomegaly - Slight increase in dilatation of the ascending aorta, measuring 4.9 cm - Visualized portions of the upper abdomen and straight cirrhosis. There is trace perihepatic ascites. - Likely with restrictive lung ds due to multiple vertebral fractures and truncal obesity. 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 - Continued home warfarin - Goal INR 2-3 HTN - continued Losartan, Eplerenone, Metoprolol - continued ASA Reflux - continued PPI - Consider additional famotidine if patient has reflux symptoms Vertigo - Consider vertigospecific physical therapy at her personal [facility] Code: Full code Dispo: Transfer Personal Long-Term (2) Acute hyponatremia: (3) CHF (congestive heart failure): (4) Hyponatremia: (5) HTN (hypertension): Total Time Total Time Spent Total Time Spent (In Minutes): See attending attestation Discharge Plan Discharge Items Patient Disposition: Personal Long-Term Reason For Visit: CHF EXACERBATION Discharge Diagnosis: CHF exacerbation Activity: Per Instructions section Non-emergency contact: Primary Care Provider Call non-emergency contact if: your symptoms worsen Follow-up/Referrals: Juice Robledo MD [Primary Care Provider] - Diet: Heart Healthy and Low Sodium (2gm) Addtl Attending Provider Instructions: Mrs. Mo was admitted to [facility] due to worsening shortness of breath thought to be caused by a CHF exacerbation. She was treated with IV diuretics and had good resolution of your fluid overload. She will be discharged back to [facility]. We recommend that she continue to take her daily oral diuretics and follow a low sodium diet (under 2 g or 2000 mg of sodium daily). Her diuretic will be switched from Lasix to Bumex 1mg daily. We recommend that she follow-up with primary care provider and cardiology to discuss her hospitalization and continued management of chronic conditions. Please continue to give all other medications as previously prescribed. We recommend daily weight measurements--contact PCP or Cardiology for any weight gain of 3 lbs or more. If she develops any concerning or severe symptoms including but not limited to chest pain, palpitations, worsening shortness of breath, intractable cough, fever, chills or any other abnormal symptoms please contact a healthcare provider or seek emergency medical care. Pending Studies at Discharge: No Stand-Alone Forms: My [employer], Smoking Cessation Skilled Items Patient informed of condition?: Yes DNR: No Discharge Level of Care: Other Communicable Disease: No Discharge Prognosis: Stable Lines: None Urinary Catheter: No Medications and DC Order Prescriptions: New bumetanide 1 mg tablet 1 mg PO DAILY Qty: 30 RF: 0 Continued aspirin [Aspirin Low Dose] 81 mg Tablet,Delayed Release (Dr/Ec) 81 mg PO QAM Qty: 0 RF: 0 Centrum Silver Women 8 mg iron-400 mcg-300 mcg Tablet 1 tab PO DAILY@1200 Qty: 0 RF: 0 metoprolol tartrate 100 mg Tablet 100 mg PO BID Qty: 0 RF: 0 lorazepam [Ativan] 0.5 mg Tablet 0.5 mg PO BID PRN (Reason: Anxiety) Qty: 0 RF: 0 (DME) Oxygen Home Liters Per Minute 2 liters NA HS Qty: 0 RF: 0 dorzolamide-timolol 22.3-6.8 mg/mL drops 1 drp ophthalmic (eye) AMPM RF: 0 hydrocortisone 2.5 % cream 1 applic TOPICAL BID PRN (Reason: Skin Irritation) RF: 0 eplerenone 25 mg tablet 25 mg PO DAILY RF: 0 loperamide 2 mg Capsule 2 mg PO Q4H PRN (Reason: Diarrhea) RF: 0 Restasis 0.05 % dropperette 1 drp OPB PM RF: 0 pantoprazole 40 mg Tablet,Delayed Release (Dr/Ec) 40 mg PO BID Qty: 60 RF: 0 acetaminophen 325 mg Tablet 650 mg PO QID PRN (Reason: Pain) RF: 0 Lactobacillus acidoph-L.bulgar [Floranex] 1 million cell Tablet 2 tab PO BID RF: 0 netarsudil 0.02 % Drops 1 drp OPHTHALMIC (EYE) DAILY RF: 0 potassium chloride [Klor-Con M20] 20 mEq tablet,ER particles/crystals 40 meq PO BID RF: 0 losartan 50 mg tablet 25 mg PO BID RF: 0 calcium carbonate [Tums] 300 mg (750 mg) Tablet,Chewable 600 mg PO DAILY RF: 0 magnesium chloride 64 mg Tablet Extended Release 64 mg PO TID RF: 0 warfarin 3 mg Tablet 3 mg PO DAILY RF: 0 levothyroxine 100 mcg Tablet 100 mcg PO QAM RF: 0 trolamine salicylate 10 % Cream 1 applic TOPICAL DAILY PRN (Reason: Pain) RF: 0 Preparation H 0.25-14-74.9 % Ointment 1 applic [place] AMHS PRN (Reason: Hemorrhoids) RF: 0 Discontinued furosemide [Lasix] 40 mg Tablet 60 mg PO BID Qty: 0 RF: 0 Discharge Orders: Discharge Order (Routine); Ordered 11/14/20 Ordered By: Nestor Clifton/Other Patient Handouts: Lifestyle Changes for Controlling GERD, Heart Failure Making Changes to ... Admission Data Admit Date/Time: 11/07/20 20:32 Attending Provider: Livia Jensen Admit Provider: Noam Leahy Primary Care Provider: Juice Robledo Other Providers: Arthur Camp ; Kra Spence ; Cecille Sanchez Other Interventions: Discharge Summary Assessment (RN) Last Done: 11/14/20 13:17 Supervising Physician Co-Signing Physician Notes Resident Physician Supervision Note: I independently interviewed and examined the patient and verified the mendoza history and physical, reviewed labs and image studies, discussed the case with the resident Dr. Ta and agree with the findings and care plan. Resident Activity Tracking Resident Involvement: Resident Care Provided Care Provided: Adult Hospital Medicine
== END 2020-11-14 14:03 | disposition home or self-care (01) | DRG 291 ==
LOC: ED 14:49 → 2N 20:32 → SUATTDRO 20:32 → 2N 22:42

== ENCOUNTER 2020-12-05 05:40 | Inpatient (IN) ==
[2020-12-05 06:17] LABS: Basophils # (auto) 0.01 K/uL (0-0.2); Basophils % (auto) 0.2 %; Eosinophils # (auto) 0.05 K/uL (0-0.5); Eosinophils % (auto) 0.8 %; Hematocrit (blood only) 33.5 % (37-47); Immature Granulocytes # (auto) 0.02 K/uL (0.00-0.02); Immature Granulocytes % (auto) 0.3 %; Lymphocytes # (auto) 1.32 K/uL (1.2-3.4); Lymphocytes % (auto) 19.9 %; Mean Corpuscular Hemoglobin 26.2 pg (25-34); Mean Corpuscular Hgb Conc 29.9 g/dL (32-36); Mean Corpuscular Volume 87.7 fL (80-100); Mean Platelet Volume 9.5 fL (7.4-10.4); Monocytes # (auto) 0.63 K/uL (0.11-0.59); Monocytes % (auto) 9.5 %; Neutrophils # (auto) 4.59 K/uL (1.4-6.5); Neutrophils % (auto) 69.3 %; Platelet Count 118 K/uL (130-400); RDW Coefficient of Variation 20.9 % (11.5-14.5); RDW Standard Deviation 66.7 fL (36.4-46.3); Red Blood Count 3.82 M/uL (4.2-5.4); White Blood Count 6.62 K/uL (4.8-10.8)
[2020-12-05 06:34] LABS: Alanine Aminotransferase 26 U/L (12-78); Albumin Level 2.8 gm/dl (3.4-5.0); Aspartate Aminotransferase 25 U/L (15-37); BUN Creatinine Ratio 40.1 (10-20); Blood Urea Nitrogen 39 mg/dl (7-18); Calcium 9.3 mg/dl (8.5-10.1); Carbon Dioxide 38 mmol/L (21-32); Chloride 96 mmol/L (98-107); Est GFR (African American) 60.8 ml/min; Est GFR (Non-African American) 52.4 ml/min; Glucose 85 mg/dl (70-99); Potassium 4.7 mmol/L (3.5-5.1); Sodium 135 mmol/L (136-145)
[2020-12-05] MEDS ORDERED: FUROSEMIDE 40 MG/4 ML VIAL IV STA (06:34)
[2020-12-05 06:37] LABS: Albumin Globulin Ratio 0.6 (0.9-2); Alkaline Phosphatase 178 U/L (45-117); Bilirubin,Total 0.7 mg/dl (0.2-1); Globulin 4.5 gm/dl (2.5-4.0); Total Protein 7.3 gm/dl (6.4-8.2)
[2020-12-05 06:52] LABS: Anisocytosis Present; Target Cells 1+
--- NOTE | 2020-12-05 08:11 | Emergency Department Note ---
History of Present Illness General Chief complaint: Swelling/Edema to Extremity Stated complaint: DECREASED O2 SATS/BILAT. L.E EDEMA Time Seen by Provider: 12/05/20 06:26 Source: patient and RN notes reviewed Mode of arrival: EMS Limitations: no limitations History of Present Illness Provider complaint: Shortness of breath, bilateral lower extremity edema This patient is an 89-year-old female who resides at [facility] who presents by ambulance for increased work of breathing. Patient is noted to be hypoxic and they were unable to improve her saturations today. Patient has chronic lower extremity edema per her account but it does seem to be worse than usual. Patient has a history of atrial fibrillation and is on Coumadin. She states she has a pacemaker in place. Patient denies any chest pain, fevers, abdominal pain, vomiting. She states she has had both Covid shots for at least a month. She does wear oxygen occasionally at night. She has had an occasional cough. Home Medications Medication Instructions Recorded Confirmed Type Centrum Silver Women 1 tab PO DAILY #0 07/31/13 12/05/20 History Oxygen Home #0 09/10/13 11/05/20 History lorazepam [Ativan] 0.5 mg PO BID PRN #0 tab 09/10/13 12/05/20 History metoprolol tartrate 100 mg PO BID #0 tab 09/10/13 12/05/20 History dorzolamide-timolol [Cosopt] 1 drp OPB BID 08/12/19 12/05/20 History Restasis 1 drp OPB BID 09/18/20 12/05/20 History eplerenone 25 mg PO DAILY 09/18/20 12/05/20 History hydrocortisone 1 applic TOPICAL BID PRN 09/18/20 12/05/20 History loperamide 2 mg PO Q6H PRN 09/18/20 12/05/20 History Lactobacillus acidoph-L.bulgar 2 tab PO BID 11/05/20 12/05/20 History [Floranex] acetaminophen 650 mg PO Q4H PRN 11/05/20 12/05/20 History netarsudil [Rhopressa] 1 drp OPB DAILY 11/05/20 12/05/20 History potassium chloride [Klor-Con M20] 40 meq PO BID 11/05/20 12/05/20 History Preparation H 1 applic NE AMHS PRN 11/07/20 12/05/20 History calcium carbonate [Tums] 600 mg PO DAILY 11/07/20 12/05/20 History levothyroxine 100 mcg PO DAILYBB 11/07/20 12/05/20 History losartan 25 mg PO BID 11/07/20 12/05/20 History warfarin See Rx Instructions .ROUTE .COMPLEX 11/07/20 12/05/20 History Slow Mag 64mg 64 mg PO TID 12/05/20 12/05/20 History aspirin 81 mg PO DAILY 12/05/20 12/05/20 History bumetanide 1 mg PO BID 12/05/20 12/05/20 History dimethicone-zinc oxide [Heri 1 applic TOPICAL DAILY 12/05/20 12/05/20 History Protect] melatonin 5 mg PO HS 12/05/20 12/05/20 History pantoprazole 40 mg PO BID 12/05/20 12/05/20 History trolamine salicylate [Aspercreme] 1 applic TOPICAL TID PRN 12/05/20 12/05/20 History Allergies Allergy/AdvReac Type Severity Reaction Status Date / Time Sulfa (Sulfonamide Allergy Intermediate HIVES Verified 11/07/20 18:24 Antibiotics) Past Med/Surg History Medical History (Updated 12/08/20 @ 12:45 by Breanna Snowden MD) Acute hyponatremia Acute hyponatremia Acute on chronic diastolic (congestive) heart failure RV dysfunction Anemia Atrial fibrillation CHF (congestive heart failure) Cholecystitis Choledocholithiasis Dizziness Elevated troponin HTN (hypertension) Hyponatremia Pacemaker Pulmonary hypertension Thickened endometrium Thyroid disease Vertigo Surgical History (Updated 12/08/20 @ 12:44 by Breanna Snowden MD) Aortic valve replaced no further details provided from facility record History of colonoscopy History of heart valve replacement 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 Status post Mohs surgery Status post placement of cardiac pacemaker no further details provided from facility record Family History Brother Cancer Sister Cancer Social History Smoking Status: Never smoker Tobacco Type: Cigarettes Second Hand Exposure: No; Do You Dip or Chew Tobacco: No; Tobacco Cessation Education Requested by Patient: No Hx Alcohol Use: No Hx Substance Use: No Preferred Language: Mongolian Communication Ability: Effective [employer] Required: No Beliefs That Will Affect Care: None marital status: / Current Living Situation: Personal Care Facility Current Living Situation Comment: [facility] How many Children do You have: 2 Other Information That Helps Us Care for You: No Feels Safe at Home: Yes Safety Concerns: Feels Safe At This Time Assistive Devices: Walker Review of Systems See HPI for pertinent positives & negatives. and A total of 10 systems reviewed and were otherwise negative Physical Exam Vital Signs Vital Signs - 24 hr 12/05/20 05:43 12/05/20 05:46 12/05/20 05:52 Temperature 36.6 C Temperature Source Oral Pulse Rate 86 131 H 68 Pulse Rate from SpO2 Sensor Respiratory Rate 16 17 15 Blood Pressure 132/70 132/70 Blood Pressure Mean 90 90 Pulse Oximetry 95 Oxygen Flow Rate 4 Sepsis Recent Fever Within 48 Hours No Sepsis New/Unexplained Change in Mental Status N/A Sepsis Action Taken by Nursing No Action Required 12/05/20 06:00 12/05/20 06:30 12/05/20 07:00 Temperature Temperature Source Pulse Rate 60 65 Pulse Rate from SpO2 Sensor 60 Respiratory Rate Blood Pressure 124/54 L 123/58 L 110/50 L Blood Pressure Mean 77 79 70 Pulse Oximetry 91 Oxygen Flow Rate 4 Sepsis Recent Fever Within 48 Hours Sepsis New/Unexplained Change in Mental Status Sepsis Action Taken by Nursing 12/05/20 07:31 12/05/20 08:00 12/05/20 08:30 Temperature Temperature Source Pulse Rate 60 61 60 Pulse Rate from SpO2 Sensor 61 60 Respiratory Rate 20 20 22 Blood Pressure 136/62 125/58 L 116/54 L Blood Pressure Mean 86 80 74 Pulse Oximetry 97 99 94 Oxygen Flow Rate 4 4 4 Sepsis Recent Fever Within 48 Hours Sepsis New/Unexplained Change in Mental Status Sepsis Action Taken by Nursing 12/05/20 09:00 12/05/20 09:30 12/05/20 10:30 Temperature Temperature Source Pulse Rate 60 60 60 Pulse Rate from SpO2 Sensor 60 60 60 Respiratory Rate 20 20 20 Blood Pressure 144/64 H 123/56 L 120/56 L Blood Pressure Mean 90 78 77 Pulse Oximetry 100 100 99 Oxygen Flow Rate 4 4 4 Sepsis Recent Fever Within 48 Hours Sepsis New/Unexplained Change in Mental Status Sepsis Action Taken by Nursing 12/05/20 11:00 Temperature Temperature Source Pulse Rate 62 Pulse Rate from SpO2 Sensor 59 L Respiratory Rate 22 Blood Pressure 122/60 Blood Pressure Mean 80 Pulse Oximetry 98 Oxygen Flow Rate 4 Sepsis Recent Fever Within 48 Hours Sepsis New/Unexplained Change in Mental Status Sepsis Action Taken by Nursing Vital signs reviewed. General: Chronically ill-appearing, elderly 89-year-old female, in no significant distress on nasal cannula oxygen. HEENT: No scleral icterus, PERRLA, neck supple. Atraumatic. Cardiovascular: Regular rate and rhythm, loud systolic murmur Pulmonary: Coarse breath sounds at the bases bilaterally, slightly increased work of breathing on nasal cannula oxygen, no distress Abdomen: Soft, nontender, nondistended, positive bowel sounds. Musculoskeletal: Atraumatic, no peripheral edema. Neurologic: Patient awake alert and answers questions appropriately, able to follow commands. Skin: Warm, dry, no rash Course Administered Medications Acetaminophen (Acetaminophen 325 Mg Tab) 650 mg PO Q4H PRN PRN Reason: Pain Stop: 01/04/21 09:44 Last Admin: 12/07/20 19:20 Dose: 650 mg Documented by: [id number] Admin: 12/05/20 20:03 Dose: 650 mg Documented by: [id number] Aspirin (Aspirin 81 Mg Ectab) 81 mg PO DAILY ENDER Stop: 01/05/21 08:59 Last Admin: 12/08/20 07:44 Dose: 81 mg Documented by: [id number] Admin: 12/07/20 08:11 Dose: 81 mg Documented by: [id number] Admin: 12/06/20 09:26 Dose: 81 mg Documented by: [id number] Bumetanide (Bumetanide 1 Mg Tab) 1 mg PO [id number] ENDER Stop: 01/04/21 16:59 Last Admin: 12/08/20 17:21 Dose: 1 mg Documented by: [id number] Admin: 12/08/20 07:44 Dose: 1 mg Documented by: [id number] Admin: 12/07/20 17:17 Dose: 1 mg Documented by: [id number] Admin: 12/07/20 08:11 Dose: 1 mg Documented by: [id number] Admin: 12/06/20 17:14 Dose: 1 mg Documented by: [id number] Admin: 12/06/20 09:25 Dose: 1 mg Documented by: [id number] Admin: 12/05/20 17:59 Dose: 1 mg Documented by: [id number] Calcium Carbonate (Calcium Carbonate 500 Mg Chewable Tab) 500 mg PO DAILY ENDER Stop: 01/05/21 08:59 Last Admin: 12/08/20 07:45 Dose: 500 mg Documented by: [id number] Admin: 12/07/20 08:12 Dose: 500 mg Documented by: [id number] Admin: 12/06/20 09:26 Dose: 500 mg Documented by: [id number] Calcium Carbonate (Calcium Carbonate 500 Mg Chewable Tab) 500 mg PO Q8H PRN PRN Reason: Indigestion Stop: 01/06/21 16:00 Last Admin: 12/08/20 06:02 Dose: 500 mg Documented by: [id number] Admin: 12/07/20 22:15 Dose: 500 mg Documented by: [id number] Dorzolamide/Timolol (Dorzolamide/Timolol 22.3/6.8mg/Ml 10 Ml Btl) 1 drops OPB BID ENDER Stop: 01/04/21 09:59 Last Admin: 12/08/20 20:15 Dose: 1 drops Documented by: [id number] Admin: 12/08/20 07:45 Dose: 1 drops Documented by: [id number] Admin: 12/07/20 20:27 Dose: 1 drops Documented by: [id number] Admin: 12/07/20 08:12 Dose: 1 drops Documented by: [id number] Admin: 12/06/20 21:11 Dose: 1 drops Documented by: [id number] Admin: 12/06/20 09:27 Dose: 1 drops Documented by: [id number] Admin: 12/05/20 20:05 Dose: 1 drops Documented by: [id number] Admin: 12/05/20 13:52 Dose: 1 drops Documented by: [id number] Hydrocortisone (Hydrocortisone Acetate 25 Mg Supp) 25 mg NE BID ENDER Stop: 01/04/21 20:59 Last Admin: 12/08/20 20:13 Dose: 25 mg Documented by: [id number] Admin: 12/08/20 07:46 Dose: 25 mg Documented by: [id number] Admin: 12/07/20 20:27 Dose: 25 mg Documented by: [id number] Admin: 12/07/20 08:15 Dose: Not Given Documented by: [id number] Admin: 12/06/20 21:13 Dose: 25 mg Documented by: [id number] Admin: 12/06/20 09:29 Dose: 25 mg Documented by: [id number] Admin: 12/05/20 20:07 Dose: 25 mg Documented by: [id number] Levothyroxine Sodium (Levothyroxine Sodium 100 Mcg Tablet) 100 mcg PO DAILYBB [facility] Stop: 01/05/21 06:29 Last Admin: 12/08/20 06:00 Dose: 100 mcg Documented by: [id number] Admin: 12/07/20 05:54 Dose: 100 mcg Documented by: [id number] Admin: 12/06/20 05:37 Dose: 100 mcg Documented by: [id number] Lorazepam (Lorazepam 0.5 Mg Tab) 0.5 mg PO BID PRN PRN Reason: Anxiety Stop: 01/05/21 02:14 Last Admin: 12/08/20 20:19 Dose: 0.5 mg Documented by: [id number] Admin: 12/07/20 20:26 Dose: 0.5 mg Documented by: [id number] Admin: 12/06/20 21:10 Dose: 0.5 mg Documented by: [id number] Admin: 12/06/20 02:23 Dose: 0.5 mg Documented by: [id number] Losartan Potassium (Losartan Potassium 25 Mg Tab) 25 mg PO QAM [facility] Stop: 01/07/21 08:59 Last Admin: 12/08/20 08:25 Dose: 25 mg Documented by: [id number] Magnesium Chloride (Magnesium Chloride 64mg Delayed Rel Tab) 64 mg PO TID [facility] Stop: 01/04/21 13:59 Last Admin: 12/08/20 20:14 Dose: 64 mg Documented by: [id number] Admin: 12/08/20 13:18 Dose: 64 mg Documented by: [id number] Admin: 12/08/20 07:44 Dose: 64 mg Documented by: [id number] Admin: 12/07/20 20:26 Dose: 64 mg Documented by: [id number] Admin: 12/07/20 13:53 Dose: 64 mg Documented by: [id number] Admin: 12/07/20 08:10 Dose: 64 mg Documented by: [id number] Admin: 12/06/20 21:11 Dose: 64 mg Documented by: [id number] Admin: 12/06/20 13:30 Dose: 64 mg Documented by: [id number] Admin: 12/06/20 09:26 Dose: 64 mg Documented by: [id number] Admin: 12/05/20 20:05 Dose: 64 mg Documented by: [id number] Admin: 12/05/20 13:52 Dose: 64 mg Documented by: [id number] Melatonin (Melatonin 3 Mg Tab) 3 mg PO HS [facility] Stop: 01/04/21 20:59 Last Admin: 12/08/20 20:12 Dose: 3 mg Documented by: [id number] Admin: 12/07/20 20:28 Dose: 3 mg Documented by: [id number] Admin: 12/06/20 21:12 Dose: 3 mg Documented by: [id number] Admin: 12/05/20 20:06 Dose: 3 mg Documented by: [id number] Metoprolol Succinate (Metoprolol Succ 25mg Ext Rel Tab) 25 mg PO QAM [facility] Stop: 01/07/21 08:59 Last Admin: 12/08/20 07:42 Dose: 25 mg Documented by: [id number] Miscellaneous (Heri Protection: Order Awaiting Action) 1 ea N/A QS [facility] Stop: 01/04/21 15:59 Last Admin: 12/08/20 13:02 Dose: Not Given Documented by: [id number] Admin: 12/08/20 07:42 Dose: Not Given Documented by: [id number] Admin: 12/07/20 23:10 Dose: Not Given Documented by: [id number] Admin: 12/07/20 15:34 Dose: Not Given Documented by: [id number] Admin: 12/07/20 08:12 Dose: Not Given Documented by: [id number] Admin: 12/07/20 01:53 Dose: Not Given Documented by: [id number] Admin: 12/06/20 15:47 Dose: Not Given Documented by: [id number] Admin: 12/06/20 08:27 Dose: Not Given Documented by: [id number] Admin: 12/06/20 00:15 Dose: Not Given Documented by: [id number] Admin: 12/05/20 17:58 Dose: Not Given Documented by: [id number] Miscellaneous (Rhopressa 0.02%: Order Awaiting Action) 1 ea N/A QS [facility] Stop: 01/04/21 15:59 Last Admin: 12/08/20 13:03 Dose: Not Given Documented by: [id number] Admin: 12/08/20 07:42 Dose: Not Given Documented by: [id number] Admin: 12/07/20 23:11 Dose: Not Given Documented by: [id number] Admin: 12/07/20 15:34 Dose: Not Given Documented by: [id number] Admin: 12/07/20 08:12 Dose: Not Given Documented by: [id number] Admin: 12/07/20 01:53 Dose: Not Given Documented by: [id number] Admin: 12/06/20 15:47 Dose: Not Given Documented by: [id number] Admin: 12/06/20 08:27 Dose: Not Given Documented by: [id number] Admin: 12/06/20 00:15 Dose: Not Given Documented by: [id number] Admin: 12/05/20 17:59 Dose: Not Given Documented by: [id number] Miscellaneous (Restasis: Order Awaiting Action) 1 ea N/A QS ENDER Stop: 01/04/21 15:59 Last Admin: 12/08/20 13:02 Dose: Not Given Documented by: [id number] Admin: 12/08/20 07:42 Dose: Not Given Documented by: [id number] Admin: 12/07/20 23:11 Dose: Not Given Documented by: [id number] Admin: 12/07/20 15:34 Dose: Not Given Documented by: [id number] Admin: 12/07/20 08:12 Dose: Not Given Documented by: [id number] Admin: 12/07/20 01:53 Dose: Not Given Documented by: [id number] Admin: 12/06/20 15:47 Dose: Not Given Documented by: [id number] Admin: 12/06/20 08:27 Dose: Not Given Documented by: [id number] Admin: 12/06/20 00:15 Dose: Not Given Documented by: [id number] Admin: 12/05/20 17:59 Dose: Not Given Documented by: [id number] Miscarteraneous (Eplerenone: Order Awaiting Action) 1 ea N/A QS ENDER Stop: 01/04/21 15:59 Last Admin: 12/08/20 13:02 Dose: Not Given Documented by: [id number] Admin: 12/08/20 07:42 Dose: Not Given Documented by: [id number] Admin: 12/07/20 23:11 Dose: Not Given Documented by: [id number] Admin: 12/07/20 15:34 Dose: Not Given Documented by: [id number] Admin: 12/07/20 08:12 Dose: Not Given Documented by: [id number] Admin: 12/07/20 01:53 Dose: Not Given Documented by: [id number] Admin: 12/06/20 15:47 Dose: Not Given Documented by: [id number] Admin: 12/06/20 08:27 Dose: Not Given Documented by: [id number] Admin: 12/06/20 00:15 Dose: Not Given Documented by: [id number] Admin: 12/05/20 17:58 Dose: Not Given Documented by: [id number] Multivitamins/Minerals (Cerovite Adv Formula Tab) 1 tab PO DAILY ENDER Stop: 01/05/21 08:59 Last Admin: 12/08/20 07:44 Dose: 1 tab Documented by: [id number] Admin: 12/07/20 08:11 Dose: 1 tab Documented by: [id number] Admin: 12/06/20 09:25 Dose: 1 tab Documented by: [id number] Pantoprazole Sodium (Pantoprazole 40 Mg Tab) 40 mg PO BID ENDER Stop: 01/04/21 09:59 Last Admin: 12/08/20 20:15 Dose: 40 mg Documented by: [id number] Admin: 12/08/20 07:44 Dose: 40 mg Documented by: [id number] Admin: 12/07/20 20:27 Dose: 40 mg Documented by: [id number] Admin: 12/07/20 08:11 Dose: 40 mg Documented by: [id number] Admin: 12/06/20 21:12 Dose: 40 mg Documented by: [id number] Admin: 12/06/20 09:26 Dose: 40 mg Documented by: [id number] Admin: 12/05/20 20:04 Dose: 40 mg Documented by: [id number] Admin: 12/05/20 13:52 Dose: 40 mg Documented by: [id number] Potassium Chloride (Potassium Chloride Crtab 20 Meq Tabcr) 40 meq PO BID ENDER Stop: 01/04/21 20:59 Last Admin: 12/08/20 20:15 Dose: 40 meq Documented by: [id number] Admin: 12/08/20 07:44 Dose: 40 meq Documented by: [id number] Admin: 12/07/20 20:26 Dose: 40 meq Documented by: [id number] Admin: 12/07/20 08:10 Dose: 40 meq Documented by: [id number] Admin: 12/06/20 21:13 Dose: 40 meq Documented by: [id number] Admin: 12/06/20 09:25 Dose: 40 meq Documented by: [id number] Admin: 12/05/20 20:08 Dose: 40 meq Documented by: [id number] Warfarin Sodium (Warfarin Sod 3 Mg Tab) 3 mg PO [id number] ENDER Stop: 01/07/21 15:59 Last Admin: 12/08/20 15:51 Dose: Not Given Documented by: [id number] Discontinued Medications Furosemide (Furosemide 40 Mg/4 Ml Vial) 40 mg IV NOW STA Stop: 12/05/20 06:35 Last Admin: 12/05/20 09:53 Dose: 40 mg Documented by: [id number] Furosemide (Furosemide 40 Mg/4 Ml Vial) Confirm Administered Dose 40 mg IV .STK-MED ONE Stop: 12/05/20 09:44 Last Admin: 12/05/20 10:30 Dose: 40 mg Documented by: [id number] Hydrocortisone (Hydrocortisone Acetate 25 Mg Supp) 25 mg NE ONE ONE Stop: 12/05/20 13:06 Last Admin: 12/05/20 13:52 Dose: 25 mg Documented by: [id number] Warfarin Sodium (Warfarin Sod 3 Mg Tab) 3 mg PO ONE ONE Stop: 12/08/20 07:01 Last Admin: 12/08/20 07:41 Dose: 3 mg Documented by: [id number] Medical Decision Making Differential Diagnosis Reactive airway disease, pneumonia, pneumothorax, COPD, CHF, infections, cardiac ischemia, pulmonary embolism, musculoskeletal, gastrointestinal, as well as other pathologies. Medical Records Attestation: I reviewed the patient's medical records. Home Medications Current Medication List: was personally reviewed by me Laboratory Data Attestation: I reviewed the patient's lab results. Result diagrams: 12/07/20 10:59 12/08/20 10:48 Lab Results 12/05/20 12/05/20 12/05/20 Range/Units 06:00 06:00 06:00 WBC 6.62 (4.8-10.8) K/uL RBC 3.82 L (4.2-5.4) M/uL Hgb 10.0 L (12.0-16.0) g/dL Hct 33.5 L (37-47) % MCV 87.7 (80-100) fL MCH 26.2 (25-34) pg MCHC 29.9 L (32-36) g/dL RDW Std Deviation 66.7 H (36.4-46.3) fL RDW Coeff of Sia 20.9 H (11.5-14.5) % Plt Count 118 L (130-400) K/uL MPV 9.5 (7.4-10.4) fL Immature Gran % (Auto) 0.3 % Neut % (Auto) 69.3 % Lymph % (Auto) 19.9 % Bradley % (Auto) 9.5 % Eos % (Auto) 0.8 % Baso % (Auto) 0.2 % Neut # (Auto) 4.59 (1.4-6.5) K/uL Lymph # (Auto) 1.32 (1.2-3.4) K/uL Bradley # (Auto) 0.63 H (0.11-0.59) K/uL Eos # (Auto) 0.05 (0-0.5) K/uL Baso # (Auto) 0.01 (0-0.2) K/uL Immature Gran # (Auto) 0.02 (0.00-0.02) K/uL Anisocytosis Present Target Cells 1+ PT 45.8 H (9.0-12.0) Seconds INR 5.1 H (0.9-1.1) APTT 44.7 H (21.0-31.0) Seconds PTT Ratio 1.7 Sodium 135 L (136-145) mmol/L Potassium 4.7 (3.5-5.1) mmol/L Chloride 96 L (98-107) mmol/L Carbon Dioxide 38 H (21-32) mmol/L Anion Gap 1.0 L (3-11) BUN 39 H (7-18) mg/dl Creatinine 0.96 (0.6-1.2) mg/dl Est Cr Clr Drug Dosing Not Reportable Est GFR ( Amer) 60.8 ml/min Est GFR (Non-Af Amer) 52.4 ml/min BUN/Creatinine Ratio 40.1 H (10-20) Glucose 85 (70-99) mg/dl Calcium 9.3 (8.5-10.1) mg/dl Total Bilirubin 0.7 (0.2-1) mg/dl AST 25 (15-37) U/L ALT 26 (12-78) U/L Alkaline Phosphatase 178 H (45-117) U/L Troponin I (0-0.045) ng/ml NT-Pro-B Natriuret Pep (0-1800) pg/ml Total Protein 7.3 (6.4-8.2) gm/dl Albumin 2.8 L (3.4-5.0) gm/dl Globulin 4.5 H (2.5-4.0) gm/dl Albumin/Globulin Ratio 0.6 L (0.9-2) COVID-19 Eval Order SARS-CoV-2 (PCR) (Negative) 12/05/20 12/05/20 12/05/20 Range/Units 06:00 06:00 07:08 WBC (4.8-10.8) K/uL RBC (4.2-5.4) M/uL Hgb (12.0-16.0) g/dL Hct (37-47) % MCV (80-100) fL MCH (25-34) pg MCHC (32-36) g/dL RDW Std Deviation (36.4-46.3) fL RDW Coeff of Sia (11.5-14.5) % Plt Count (130-400) K/uL MPV (7.4-10.4) fL Immature Gran % (Auto) % Neut % (Auto) % Lymph % (Auto) % Bradley % (Auto) % Eos % (Auto) % Baso % (Auto) % Neut # (Auto) (1.4-6.5) K/uL Lymph # (Auto) (1.2-3.4) K/uL Bradley # (Auto) (0.11-0.59) K/uL Eos # (Auto) (0-0.5) K/uL Baso # (Auto) (0-0.2) K/uL Immature Gran # (Auto) (0.00-0.02) K/uL Anisocytosis Target Cells PT (9.0-12.0) Seconds INR (0.9-1.1) APTT (21.0-31.0) Seconds PTT Ratio Sodium (136-145) mmol/L Potassium (3.5-5.1) mmol/L Chloride (98-107) mmol/L Carbon Dioxide (21-32) mmol/L Anion Gap (3-11) BUN (7-18) mg/dl Creatinine (0.6-1.2) mg/dl Est Cr Clr Drug Dosing Est GFR ( Amer) ml/min Est GFR (Non-Af Amer) ml/min BUN/Creatinine Ratio (10-20) Glucose (70-99) mg/dl Calcium (8.5-10.1) mg/dl Total Bilirubin (0.2-1) mg/dl AST (15-37) U/L ALT (12-78) U/L Alkaline Phosphatase (45-117) U/L Troponin I 0.063 H* (0-0.045) ng/ml NT-Pro-B Natriuret Pep [id number] H (0-1800) pg/ml Total Protein (6.4-8.2) gm/dl Albumin (3.4-5.0) gm/dl Globulin (2.5-4.0) gm/dl Albumin/Globulin Ratio (0.9-2) COVID-19 Eval Order Covid19 at [facility] SARS-CoV-2 (PCR) (Negative) 12/05/20 Range/Units 07:08 WBC (4.8-10.8) K/uL RBC (4.2-5.4) M/uL Hgb (12.0-16.0) g/dL Hct (37-47) % MCV (80-100) fL MCH (25-34) pg MCHC (32-36) g/dL RDW Std Deviation (36.4-46.3) fL RDW Coeff of Sia (11.5-14.5) % Plt Count (130-400) K/uL MPV (7.4-10.4) fL Immature Gran % (Auto) % Neut % (Auto) % Lymph % (Auto) % Bradley % (Auto) % Eos % (Auto) % Baso % (Auto) % Neut # (Auto) (1.4-6.5) K/uL Lymph # (Auto) (1.2-3.4) K/uL Bradley # (Auto) (0.11-0.59) K/uL Eos # (Auto) (0-0.5) K/uL Baso # (Auto) (0-0.2) K/uL Immature Gran # (Auto) (0.00-0.02) K/uL Anisocytosis Target Cells PT (9.0-12.0) Seconds INR (0.9-1.1) APTT (21.0-31.0) Seconds PTT Ratio Sodium (136-145) mmol/L Potassium (3.5-5.1) mmol/L Chloride (98-107) mmol/L Carbon Dioxide (21-32) mmol/L Anion Gap (3-11) BUN (7-18) mg/dl Creatinine (0.6-1.2) mg/dl Est Cr Clr Drug Dosing Est GFR ( Amer) ml/min Est GFR (Non-Af Amer) ml/min BUN/Creatinine Ratio (10-20) Glucose (70-99) mg/dl Calcium (8.5-10.1) mg/dl Total Bilirubin (0.2-1) mg/dl AST (15-37) U/L ALT (12-78) U/L Alkaline Phosphatase (45-117) U/L Troponin I (0-0.045) ng/ml NT-Pro-B Natriuret Pep (0-1800) pg/ml Total Protein (6.4-8.2) gm/dl Albumin (3.4-5.0) gm/dl Globulin (2.5-4.0) gm/dl Albumin/Globulin Ratio (0.9-2) COVID-19 Eval Order SARS-CoV-2 (PCR) NEGATIVE (Negative) Imaging Data Radiologist's Impression: Chest X-Ray 12/05/20 06:02 XR chest 1V portable HISTORY: Hypoxia. COMPARISON: Chest 11/09/2020. FINDINGS: Redemonstration of the perihilar interstitial/vascular thickening likely representing mild pulmonary edema. There are trace bilateral pleural effusions. Near densities within left midlung zone and right lung base persist and favor scarring or atelectasis. The heart is enlarged. There are poststernotomy changes and cardiac valve prostheses. Left-sided single lead pacemaker is again noted. No pneumothorax. Bibasilar densities also suggesting atelectasis. IMPRESSION: Cardiomegaly with mild interstitial pulmonary edema and bilateral pleural effusions. This is similar to the prior study. Bibasilar densities favor atelectasis and also remains unchanged. ACT 112: Negative or not required by law. Electronically signed by: Ilya Russ M.D. 12/05/2020 8:30 AM ECG Data Attestation: I personally reviewed and interpreted this ECG as follows: Indication: + SOB/dyspnea Rate (beats per minute): 63 Rhythm: + other (Ventricularly paced rhythm) ECG Intervals/blocks: + Prolonged QT (47) ECG Findings: no PACs and no PVCs Comparison ECG Date: from (11/07/20) Change: no significant change Blood Pressure Blood Pressure Findings: Normal blood pressure Blood Pressure Disposition: did not require urgent referral MDM Narrative This patient was evaluated and appeared to be in no distress. IV access was ob tained and lab work was drawn. An order for cardiac monitoring was placed and pt was noted to be in a paced rhythm at 61 bpm. CXR confirms pulm vascular congestion. Pt was in no significant respiratory distress on n/c O2. IV lasix was administered. BNP is noted to be markedly elevated and troponin is slightly bumped. This is likely demand mediated. EKG revealed a ventricularly paced rhythm. Pt was d/w the hospitalist for admission and further management. Impression & Plan CHF (congestive heart failure) Discharge Plan Visit Data Chief Complaint: Swelling/Edema to Extremity Stated Complaint: DECREASED O2 SATS/BILAT. L.E EDEMA ED Provider: Katalina Collins Discharge Problem: CHF (congestive heart failure) Patient Disposition: Admitted As Inpatient Discharge Instructions Interventions: ED Discharge Assessment Last Done: 12/05/20 11:31 Discharge Problem: CHF (congestive heart failure) Qualifiers: Heart failure type: unspecified Heart failure chronicity: acute on chronic Qualified Code(s): I50.9 - Heart failure, unspecified
[2020-12-05 08:14] LABS: INR 5.1 (0.9-1.1); Partial Thromboplastin Ratio 1.7; Partial Thromboplastin Time 44.7 Seconds (21.0-31.0); Prothrombin Time 45.8 Seconds (9.0-12.0)
--- NOTE | 2020-12-05 08:31 | XRay Report ---
XR chest 1V portable HISTORY: Hypoxia. COMPARISON: Chest 11/09/2020. FINDINGS: Redemonstration of the perihilar interstitial/vascular thickening likely representing mild pulmonary edema. There are trace bilateral pleural effusions. Near densities within left midlung zone and right lung base persist and favor scarring or atelectasis. The heart is enlarged. There are post sternotomy changes and cardiac valve prostheses. Left-sided single lead pacemaker is again noted. No pneumothorax. Bibasilar densities also suggesting atelectasis. IMPRESSION: Cardiomegaly with mild interstitial pulmonary edema and bilateral pleural effusions. This is similar to the prior study. Bibasilar densities favor atelectasis and also remains unchanged. ACT 112: Negative or not required by law. Electronically signed by: Ilya Russ M.D. 12/05/2020 8:30 AM
--- NOTE | 2020-12-05 08:52 | History & Physical Report ---
Date of Service December 05, 2020 Assessment & Plan (1) Acute on chronic diastolic (congestive) heart failure: 89 yo F w/ PMHx. of diastolic heart failure, HTN, GERD, valve replacement, hypothyroidism, is here for heart failure exacerbation with shortness of breath and hypoxia. Acute diastolic heart failure exacerbation, unclear precipitating factor on 3L baseline oxygen. Patient required nasal cannula but was unable to increase EKG with v. paced rhythm C-XR appears to show evidence of CHF exacerbation UA nl. - troponin mildly elevated continue to trend - Lasix 40 IV in ER, will resume Bumex. -hollding ARB and Beta bhargavi in the acute setting.. - fluid restriction - monitor I's and O's replaced heart valve - INR supratherapeutic, holding warfarin. - continue ASA HTN - at goal. will monitor. hold meds as above. Reflux - continue PPI Hemmorhoid Will order hydrocortisone cream MD BID Code: DNR w/o intubation (patient choose this today 12/05) Diet: HH DVT: Warfarin (on hold) (2) HTN (hypertension): (3) Status post bilateral knee replacements: (4) Fall: (5) Subtherapeutic international normalized ratio (INR): History of Present Illness Chief Complaint: Hypoxia Primary Care Provider: [email or web address], [facility] 89 yo female reports she was at [facility] while sitting in bed when she found that her oxygen saturation was lower. Patient reports that her oxygen saturation was not increasing despite her using nasal cannula, and patient was brought in the hospital. Patient however, reports she wa snot having any significant SOB or wheezing. Patient has chronic lower extremity edema nut reports it is worse than usual. Patient has a history of a fibrillation and is in related on Coumadin. She states she has a pacemaker in place. She states she has had both Covid shots for at least a month. She does wear oxygen occasionally at night. She has had an occasional cough. Patient reports having a hemorrhoid and would like to have that treated. Patient reports having to use 3 liters nasal cannula now at baseline. Allergies Allergy/AdvReac Type Severity Reaction Status Date / Time Sulfa (Sulfonamide Allergy Intermediate HIVES Verified 11/07/20 18:24 Antibiotics) Home Medications Medication Instructions Recorded Confirmed Type Centrum Silver Women 1 tab PO DAILY #0 07/31/13 12/05/20 History Oxygen Home #0 09/10/13 11/05/20 History lorazepam [Ativan] 0.5 mg PO BID PRN #0 tab 09/10/13 12/05/20 History metoprolol tartrate 100 mg PO BID #0 tab 09/10/13 12/05/20 History dorzolamide-timolol [Cosopt] 1 drp OPB BID 08/12/19 12/05/20 History Restasis 1 drp OPB BID 09/18/20 12/05/20 History eplerenone 25 mg PO DAILY 09/18/20 12/05/20 History hydrocortisone 1 applic TOPICAL BID PRN 09/18/20 12/05/20 History loperamide 2 mg PO Q6H PRN 09/18/20 12/05/20 History Lactobacillus acidoph-L.bulgar 2 tab PO BID 11/05/20 12/05/20 History [Floranex] acetaminophen 650 mg PO Q4H PRN 11/05/20 12/05/20 History netarsudil [Rhopressa] 1 drp OPB DAILY 11/05/20 12/05/20 History potassium chloride [Klor-Con M20] 40 meq PO BID 11/05/20 12/05/20 History Preparation H 1 applic MD AMHS PRN 11/07/20 12/05/20 History calcium carbonate [Tums] 600 mg PO DAILY 11/07/20 12/05/20 History levothyroxine 100 mcg PO DAILYBB 11/07/20 12/05/20 History losartan 25 mg PO BID 11/07/20 12/05/20 History warfarin See Rx Instructions .ROUTE .COMPLEX 11/07/20 12/05/20 History Slow Mag 64mg 64 mg PO TID 12/05/20 12/05/20 History aspirin 81 mg PO DAILY 12/05/20 12/05/20 History bumetanide 1 mg PO BID 12/05/20 12/05/20 History dimethicone-zinc oxide [Heri 1 applic TOPICAL DAILY 12/05/20 12/05/20 History Protect] melatonin 5 mg PO HS 12/05/20 12/05/20 History pantoprazole 40 mg PO BID 12/05/20 12/05/20 History trolamine salicylate [Aspercreme] 1 applic TOPICAL TID PRN 12/05/20 12/05/20 History Past Med/Surg History Medical History Acute hyponatremia Acute hyponatremia Acute on chronic diastolic (congestive) heart failure RV dysfunction Anemia Atrial fibrillation CHF (congestive heart failure) Cholecystitis Choledocholithiasis Dizziness Elevated troponin HTN (hypertension) Hyponatremia Pacemaker Thickened endometrium Thyroid disease Vertigo Surgical History Aortic valve replaced no further details provided from facility record History of colonoscopy History of heart valve replacement 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 Status post Mohs surgery Status post placement of cardiac pacemaker no further details provided from facility record Family History Brother Cancer Sister Cancer Social History Smoking Status: Never smoker Tobacco Type: Cigarettes Second Hand Exposure: No; Do You Dip or Chew Tobacco: No; Tobacco Cessation Education Requested by Patient: No Hx Alcohol Use: No Hx Substance Use: No Preferred Language: Danish Communication Ability: Effective Direct Marketing Representative Required: No Beliefs That Will Affect Care: None marital status: / Current Living Situation: Personal Care Facility Current Living Situation Comment: [facility] How many Children do You have: 2 Other Information That Helps Us Care for You: No Feels Safe at Home: Yes Safety Concerns: Feels Safe At This Time Assistive Devices: Walker Review of Systems Constitutional: no fever, no sweats and no body aches Eyes: no blind spots and no diplopia Ear, Nose, Mouth, Throat: no ear pain, no ear trauma and no tinnitus Respiratory: no cough and no dyspnea Cardiovascular: no chest pain with activity and no dyspnea at rest Gastrointestinal: no abdominal pain and no early satiety Genitourinary: no dysuria and no urinary frequency Musculoskeletal: no radicular pain Integumentary: no acne Neurologic: no falls Psychiatric: no hopelessness Endocrine: + fatigue; no polyphagia Hematologic / Lymphatic: no easy bleeding Physical Exam Physical Exam: Constitutional: WD/WN, vitals as above Eyes: PERRL, conjunctivae normal, anicteric sclerae ENMT: external ear and nose normal, oropharynx normal Neck: normal visual inspection Respiratory: Fine crackles on lower thid of lung john - able to speak in full sentences Cardiovascular: RRR, no murmur, no edema Gastrointestinal (Abdomen): normal bowel sounds, soft, nontender, no hepatosplenomegaly Musculoskeletal: no cyanosis or clubbing, extremities motor strength 5/5 Skin: no rashes, warm and dry Neurologic: no focal motor deficits Psychiatric: Orientation: alert and oriented x 3 Results & Data Results & Data ([facility]) Vital Signs (Past 12 Hours) Vital Signs Temp Pulse Resp BP Pulse Ox 12/05/20 08:00 61 20 125/58 L 99 12/05/20 07:31 60 20 136/62 97 12/05/20 07:00 110/50 L 12/05/20 06:30 65 123/58 L 91 12/05/20 06:00 60 124/54 L 12/05/20 05:52 68 15 12/05/20 05:46 131 H 17 132/70 12/05/20 05:43 36.6 C 86 16 132/70 95 PG Care Time/CCT Total # of Minutes Spent Total Time Spent with Patient: Total time spent is greater than 50% in coordination of care (as documented) at patient's floor/unit and/or counseling patient: Coding Level of Care Code 14709 Initial Inpt Care Lvl 3 Diagnoses Acute on chronic diastolic (congestive) heart failure I50.33 HTN (hypertension) I10 Status post bilateral knee replacements Z96.653 Fall W19.XXXA Encounter type: initial encounter Subtherapeutic international normalized ratio (INR) R79.1 Time Spent (min) 55 (1) Fall Encounter type: initial encounter Qualified Code(s): W19.XXXA - Unspecified fall, initial encounter
[2020-12-05] MEDS ORDERED: FUROSEMIDE 40 MG/4 ML VIAL IV ONE (09:43)
[2020-12-05] MEDS ORDERED: PHENYLEPHRINE PR PRN (09:45)
[2020-12-05] MEDS ORDERED: PETROLATUM PR PRN (09:45)
[2020-12-05] MEDS ORDERED: MINERAL OIL PR PRN (09:45)
[2020-12-05] MEDS ORDERED: [UNRECOGNIZED DRUG - OTHER] PR PRN (09:45)
[2020-12-05] MEDS ORDERED: LOPERAMIDE HCL 2 MG CAP PO PRN (09:45)
[2020-12-05] MEDS ORDERED: HYDROCORTISONE ACETATE 25 MG SUPP PR ONE (13:05)
[2020-12-05] MEDS: MAGNESIUM CHLORIDE 64MG DELAYED REL TAB PO SCH ×2 (13:52→20:05)
[2020-12-05] MEDS: DORZOLAMIDE/TIMOLOL 22.3/6.8MG/ML 10 ML BTL OPB SCH ×2 (13:52→20:05)
[2020-12-05] MEDS: PANTOprazole 40 MG TAB PO SCH ×2 (13:52→20:04)
--- NOTE | 2020-12-05 15:14 | Cardiology Consultation ---
Date of Consultation December 05, 2020 Assessment & Plan (1) Hypoxia: (2) Status post placement of cardiac pacemaker: (3) Supratherapeutic INR: The patient was admitted with a diagnosis of CHF but I do not see any component of heart failure. She does not examine his volume overloaded. Chest x-ray is unchanged compared to previous. Patient offers no complaints. No further cardiac testing or intervention necessary at this time. INR is supratherapeutic and would recommend following for goal INR of 2-3. History of Present Illness Attending Physician: Raul Redman History of Present Illness The patient is a very pleasant yet significantly confused 89-year-old woman who was sent in from the shelter with reports of hypoxia. Clinically states that she feels fine and she is not why she has been sent to the hospital. She denies chest pain or shortness of breath. Past medical history as per most recent cardiac evaluation: 1. Prior complex valve surgery 2011 with ascending aortic root repair, aortic valve replacement with mechanical prosthesis mitral valve repair, tricuspid valve repair and annuloplasty and ASD closure 2. Chronic atrial fibrillation with tachybradycardia syndrome status post single-chamber pacemaker insertion, most recent generator exchange 11/29/2018 [employer]onic Terrie XT SR 3. Chronic diastolic/right heart failure with chronic edema, 4. Pulmonary hypertension, severe with O2 dependency, suspect component of interstitial lung disease in addition to left-sided cardiac disease 5. Longstanding hypertension 6. Chronic cholelithiasis status post cholecystoduodenostomy with Axios stent 05/14/2020 due to prohibitive surgical risk 7. Chronic blood loss anemia, iron deficient Allergies Allergy/AdvReac Type Severity Reaction Status Date / Time Sulfa (Sulfonamide Allergy Intermediate HIVES Verified 11/07/20 18:24 Antibiotics) Home Medications Medication Instructions Recorded Confirmed Type Centrum Silver Women 1 tab PO DAILY #0 07/31/13 12/05/20 History Oxygen Home #0 09/10/13 11/05/20 History lorazepam [Ativan] 0.5 mg PO BID PRN #0 tab 09/10/13 12/05/20 History metoprolol tartrate 100 mg PO BID #0 tab 09/10/13 12/05/20 History dorzolamide-timolol [Cosopt] 1 drp OPB BID 08/12/19 12/05/20 History Restasis 1 drp OPB BID 09/18/20 12/05/20 History eplerenone 25 mg PO DAILY 09/18/20 12/05/20 History hydrocortisone 1 applic TOPICAL BID PRN 09/18/20 12/05/20 History loperamide 2 mg PO Q6H PRN 09/18/20 12/05/20 History Lactobacillus acidoph-L.bulgar 2 tab PO BID 11/05/20 12/05/20 History [Floranex] acetaminophen 650 mg PO Q4H PRN 11/05/20 12/05/20 History netarsudil [Rhopressa] 1 drp OPB DAILY 11/05/20 12/05/20 History potassium chloride [Klor-Con M20] 40 meq PO BID 11/05/20 12/05/20 History Preparation H 1 applic NV AMHS PRN 11/07/20 12/05/20 History calcium carbonate [Tums] 600 mg PO DAILY 11/07/20 12/05/20 History levothyroxine 100 mcg PO DAILYBB 11/07/20 12/05/20 History losartan 25 mg PO BID 11/07/20 12/05/20 History warfarin See Rx Instructions .ROUTE .COMPLEX 11/07/20 12/05/20 History Slow Mag 64mg 64 mg PO TID 12/05/20 12/05/20 History aspirin 81 mg PO DAILY 12/05/20 12/05/20 History bumetanide 1 mg PO BID 12/05/20 12/05/20 History dimethicone-zinc oxide [Heri 1 applic TOPICAL DAILY 12/05/20 12/05/20 History Protect] melatonin 5 mg PO HS 12/05/20 12/05/20 History pantoprazole 40 mg PO BID 12/05/20 12/05/20 History trolamine salicylate [Aspercreme] 1 applic TOPICAL TID PRN 12/05/20 12/05/20 History Patient History Medical History Acute hyponatremia Acute hyponatremia Acute on chronic diastolic (congestive) heart failure RV dysfunction Anemia Atrial fibrillation CHF (congestive heart failure) Cholecystitis Choledocholithiasis Dizziness Elevated troponin HTN (hypertension) Hyponatremia Pacemaker Thickened endometrium Thyroid disease Vertigo Surgical History Aortic valve replaced no further details provided from facility record History of colonoscopy History of heart valve replacement 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 Status post Mohs surgery Status post placement of cardiac pacemaker no further details provided from facility record Family History Brother Cancer Sister Cancer Social History Smoking Status: Never smoker Tobacco Type: Cigarettes Second Hand Exposure: No; Do You Dip or Chew Tobacco: No; Tobacco Cessation Education Requested by Patient: No Hx Alcohol Use: No Hx Substance Use: No Preferred Language: Montserratian Communication Ability: Effective Town Clerk Required: No Beliefs That Will Affect Care: None marital status: / Current Living Situation: Personal Care Facility Current Living Situation Comment: [facility] How many Children do You have: 2 Other Information That Helps Us Care for You: No Feels Safe at Home: Yes Safety Concerns: Feels Safe At This Time Assistive Devices: Walker Review of Systems Review of Systems: All systems reviewed & are unremarkable except as noted in HPI & below Physical Exam Physical Exam: General: Awake, alert and oriented x 3. No acute distress. HEENT: Normocephalic, atraumatic. Pupils equal, round and reactive to light and accommodation. Extraocular muscles are intact. Anicteric sclera. Moist mucous membranes. Neck: No JVD. No bruit. Cardiovascular: irregularly irregular, unable to appreciate murmur, rub or gallop. Metallic S2 is present Pulmonary: Clear to auscultation bilaterally. No rales, rhonchi, or wheezing. Abdomen: Bowel sounds x 4, soft. No rebound, guarding or tenderness. No o rganomegaly. Extremities: No clubbing, cyanosis or edema. +2 pedal pulses bilaterally. Skin: Warm and dry. Results & Data ([facility]) Vital Signs (Past 12 Hours) Vital Signs Temp Pulse Pulse Resp BP BP Pulse Ox 12/05/20 12:16 36.3 C L 60 20 118/66 94 12/05/20 11:55 68 12/05/20 11:00 62 22 122/60 98 12/05/20 10:30 60 20 120/56 L 99 12/05/20 09:30 60 20 123/56 L 100 12/05/20 09:00 60 20 144/64 H 100 12/05/20 08:30 60 22 116/54 L 94 12/05/20 08:00 61 20 125/58 L 99 12/05/20 07:31 60 20 136/62 97 12/05/20 07:00 110/50 L 12/05/20 06:30 65 123/58 L 91 12/05/20 06:00 60 124/54 L 12/05/20 05:52 68 15 12/05/20 05:46 131 H 17 132/70 12/05/20 05:43 36.6 C 86 16 132/70 95
--- NOTE | 2020-12-05 15:40 | Electrocardiogram Report ---
Test Reason : Blood Pressure : / mmHG Vent. Rate : 063 BPM Atrial Rate : 053 BPM P-R Int : 000 ms QRS Dur : 192 ms QT Int : 476 ms P-R-T Axes : 000 -79 101 degrees QTc Int : 487 ms Poor data quality, interpretation may be adversely affected Ventricular-paced rhythm Biventricular pacemaker detected Abnormal ECG When compared with ECG of 07-NOV-2020 16:35, Vent. rate has increased BY 2 BPM Confirmed by Demetrio Hernandez ([id number]) on 12/05/2020 3:40:08 PM Referred By: ED Confirmed By:Demetrio Hernandez
[2020-12-05] MEDS: EPLERENONE: ORDER AWAITING ACTION SCH (17:58)
[2020-12-05] MEDS: BUMETANIDE 1 MG TAB PO SCH (17:59)
[2020-12-05] MEDS: RESTASIS: ORDER AWAITING ACTION SCH (17:59)
[2020-12-05] MEDS: ACETAMINOPHEN 325 MG TAB PO PRN (20:03)
[2020-12-05] MEDS: MELATONIN 3 MG TAB PO SCH (20:06)
[2020-12-05] MEDS: HYDROCORTISONE ACETATE 25 MG SUPP PR SCH (20:07)
[2020-12-05] MEDS: POTASSIUM CHLORIDE CRTAB 20 MEQ TABCR PO SCH (20:08)
[2020-12-05] MEDS ORDERED: [UNRECOGNIZED DRUG - OTHER] PO SCH (21:00)
[2020-12-05] MEDS ORDERED: LACTOBACILLUS ACIDOPHILUS PO SCH (21:00)
[2020-12-06] MEDS: EPLERENONE: ORDER AWAITING ACTION SCH ×3 (00:15→15:47)
[2020-12-06] MEDS: RESTASIS: ORDER AWAITING ACTION SCH ×3 (00:15→15:47)
[2020-12-06] MEDS: LORazepam 0.5 MG TAB PO PRN ×2 (02:23→21:10)
[2020-12-06] MEDS: LEVOTHYROXINE SODIUM 100 MCG TABLET PO SCH (05:37)
[2020-12-06] MEDS: POTASSIUM CHLORIDE CRTAB 20 MEQ TABCR PO SCH ×2 (09:25→21:13)
[2020-12-06] MEDS: BUMETANIDE 1 MG TAB PO SCH ×2 (09:25→17:14)
[2020-12-06] MEDS: CEROVITE ADV FORMULA TAB PO SCH (09:25)
[2020-12-06] MEDS: MAGNESIUM CHLORIDE 64MG DELAYED REL TAB PO SCH ×3 (09:26→21:11)
[2020-12-06] MEDS: PANTOprazole 40 MG TAB PO SCH ×2 (09:26→21:12)
[2020-12-06] MEDS: ASPIRIN 81 MG ECTAB PO SCH (09:26)
[2020-12-06] MEDS: CALCIUM CARBONATE 500 MG CHEWABLE TAB PO SCH (09:26)
[2020-12-06] MEDS: DORZOLAMIDE/TIMOLOL 22.3/6.8MG/ML 10 ML BTL OPB SCH ×2 (09:27→21:11)
[2020-12-06] MEDS: HYDROCORTISONE ACETATE 25 MG SUPP PR SCH ×2 (09:29→21:13)
[2020-12-06 09:36] LABS: Basophils # (auto) 0.01 K/uL (0-0.2); Basophils % (auto) 0.2 %; Eosinophils # (auto) 0.06 K/uL (0-0.5); Eosinophils % (auto) 1.1 %; Hematocrit (blood only) 31.1 % (37-47); Hemoglobin 9.5 g/dL (12.0-16.0); Immature Granulocytes # (auto) 0.02 K/uL (0.00-0.02); Immature Granulocytes % (auto) 0.4 %; Lymphocytes # (auto) 1.52 K/uL (1.2-3.4); Mean Corpuscular Hemoglobin 26.5 pg (25-34); Mean Corpuscular Hgb Conc 30.5 g/dL (32-36); Mean Corpuscular Volume 86.6 fL (80-100); Mean Platelet Volume 9.1 fL (7.4-10.4); Monocytes # (auto) 0.44 K/uL (0.11-0.59); Monocytes % (auto) 7.8 %; Neutrophils # (auto) 3.58 K/uL (1.4-6.5); Neutrophils % (auto) 63.5 %; Platelet Count 112 K/uL (130-400); RDW Coefficient of Variation 20.8 % (11.5-14.5); RDW Standard Deviation 65.3 fL (36.4-46.3); Red Blood Count 3.59 M/uL (4.2-5.4); White Blood Count 5.63 K/uL (4.8-10.8)
[2020-12-06 10:04] LABS: BUN Creatinine Ratio 37.8 (10-20); Calcium 8.7 mg/dl (8.5-10.1); Creatinine Clr Calc Pharmacy 40.6 ml/min; Est GFR (African American) 57.2 ml/min; Est GFR (Non-African American) 49.3 ml/min; Potassium 4.4 mmol/L (3.5-5.1)
[2020-12-06 10:06] LABS: Anisocytosis Present; Basophilic Stippling 1+; Polychromasia 1+
--- NOTE | 2020-12-06 13:48 | Cardiology Progress Note ---
Date of Service December 06, 2020 Assessment & Plan (1) Hypoxia: (2) Status post placement of cardiac pacemaker: (3) Supratherapeutic INR: The patient was admitted with a diagnosis of CHF but I do not see any component of heart failure. She does not examine his volume overloaded. Chest x-ray is unchanged compared to previous. Patient offers no complaints. No further cardiac testing or intervention necessary at this time. INR is supratherapeutic and would recommend following for goal INR of 2-3. Admission and Anticipated Discharge Date Admission Date: December 05, 2020 Subjective Patient seen and examined, chart reviewed. States that she is feeling well but is rather confused. When asked about her breathing she starts telling me about her gallstones are removed several years ago. Denies chest pain or palpitations. Review of Systems Review of Systems: All systems reviewed & are unremarkable except as noted in HPI & below Physical Exam Physical Exam: General: Awake, alert and oriented x 3. No acute distress. HEENT: Normocephalic, atraumatic. Pupils equal, round and reactive to light and accommodation. Extraocular muscles are intact. Anicteric sclera. Moist mucous membranes. Neck: No JVD. No bruit. Cardiovascular: irregularly irregular, unable to appreciate murmur, rub or gallop. Metallic S2 is present Pulmonary: Clear to auscultation bilaterally. No rales, rhonchi, or wheezing. Abdomen: Bowel sounds x 4, soft. No rebound, guarding or tenderness. No organomegaly. Extremities: No clubbing, cyanosis or edema. +2 pedal pulses bilaterally. Skin: Warm and dry. Results & Data ([facility]) Vital Signs (Past 12 Hours) Vital Signs Temp Pulse Pulse Pulse Resp BP Pulse Ox 12/06/20 11:38 36.4 C L 61 18 103/53 L 96 12/06/20 07:46 60 12/06/20 07:30 36.5 C 59 L 18 117/58 L 100 12/06/20 03:00 36.5 C 61 18 107/63 99
[2020-12-06] MEDS: MELATONIN 3 MG TAB PO SCH (21:12)
--- NOTE | 2020-12-06 22:18 | Hospitalist Progress Note ---
Date of Service December 06, 2020 Assessment & Plan (1) Acute on chronic diastolic (congestive) heart failure: 89 yo F w/ PMHx. of diastolic heart failure, HTN, GERD, valve replacement, hypothyroidism, is here for heart failure exacerbation with shortness of breath and hypoxia. Acute diastolic heart failure exacerbation, unclear precipitating factor on 3L baseline oxygen. Patient required nasal cannula but was unable to increase EKG with v. paced rhythm C-XR appears to show evidence of CHF exacerbation UA nl. - troponin mildly elevated continue to trend - Lasix 40 IV in ER, will resume Bumex. -hollding ARB and Beta bhargavi in the acute setting.. - fluid restriction - monitor I's and O's -will continue diuretics, as BNP is elevated. replaced heart valve - INR supratherapeutic, holding warfarin. - continue ASA HTN - at goal. will monitor. hold meds as above. Reflux - continue PPI Hemmorhoid Will order hydrocortisone cream NC BID Code: DNR w/o intubation (patient choose this today 12/05) Diet: HH DVT: Warfarin (on hold) (2) HTN (hypertension): (3) Status post bilateral knee replacements: (4) Fall: (5) Subtherapeutic international normalized ratio (INR): Admission and Anticipated Discharge Date Admission Date: December 05, 2020 Subjective Patient reports feeling better. She has no new complaints. Review of Systems Review of Systems: All systems reviewed & are unremarkable except as noted in HPI & below Physical Exam Physical Exam: Constitutional: WD/WN, vitals as above Eyes: PERRL, conjunctivae normal, anicteric sclerae ENMT: external ear and nose normal, oropharynx normal Neck: normal visual inspection Respiratory: Fine crackles on lower thid of lung john - able to speak in full sentences Cardiovascular: RRR, no murmur, no edema Gastrointestinal (Abdomen): normal bowel sounds, soft, nontender, no hepatosplenomegaly Musculoskeletal: no cyanosis or clubbing, extremities motor strength 5/5 Skin: no rashes, warm and dry Neurologic: no focal motor deficits Psychiatric: Orientation: alert and oriented x 3 Results & Data Results & Data ([facility]) Vital Signs (Past 12 Hours) Vital Signs Temp Pulse Pulse Resp BP Pulse Ox 12/06/20 19:00 36.3 C L 62 18 100/53 L 96 12/06/20 15:59 62 12/06/20 15:31 36.9 C 59 L 18 128/63 100 12/06/20 11:38 36.4 C L 61 18 103/53 L 96 PG Care Time/CCT Total # of Minutes Spent Total Time Spent with Patient: Total time spent is greater than 50% in coordination of care (as documented) at patient's floor/unit and/or counseling patient: Coding Level of Care Code 23266 Subseq Hosp Care Lvl 2 Diagnoses Acute on chronic diastolic (congestive) heart failure I50.33 HTN (hypertension) I10 Status post bilateral knee replacements Z96.653 Fall W19.XXXA Encounter type: initial encounter Subtherapeutic international normalized ratio (INR) R79.1 Time Spent (min) 25 (1) Fall Encounter type: initial encounter Qualified Code(s): W19.XXXA - Unspecified fall, initial encounter
[2020-12-07] MEDS: RESTASIS: ORDER AWAITING ACTION SCH ×4 (01:53→23:11)
[2020-12-07] MEDS: EPLERENONE: ORDER AWAITING ACTION SCH ×4 (01:53→23:11)
[2020-12-07] MEDS: LEVOTHYROXINE SODIUM 100 MCG TABLET PO SCH (05:54)
[2020-12-07 05:56] LABS: Appearance Urine Clear (Clear); Bilirubin Urine Negative (Negative); Blood Urine Negative (Negative); Color Urine Yellow; Glucose Urine UA Negative (Negative); Ketones Urine Negative (Negative); Leukocyte Esterase Urine Negative (Negative); Nitrite Urine Negative (Negative); Protein Urine Negative (Negative); Specific Gravity Urine 1.012 (1.000-1.030); Urobilinogen Urine Negative (Negative)
[2020-12-07] MEDS: POTASSIUM CHLORIDE CRTAB 20 MEQ TABCR PO SCH ×2 (08:10→20:26)
[2020-12-07] MEDS: MAGNESIUM CHLORIDE 64MG DELAYED REL TAB PO SCH ×3 (08:10→20:26)
[2020-12-07] MEDS: CEROVITE ADV FORMULA TAB PO SCH (08:11)
[2020-12-07] MEDS: ASPIRIN 81 MG ECTAB PO SCH (08:11)
[2020-12-07] MEDS: BUMETANIDE 1 MG TAB PO SCH ×2 (08:11→17:17)
[2020-12-07] MEDS: PANTOprazole 40 MG TAB PO SCH ×2 (08:11→20:27)
[2020-12-07] MEDS: DORZOLAMIDE/TIMOLOL 22.3/6.8MG/ML 10 ML BTL OPB SCH ×2 (08:12→20:27)
[2020-12-07] MEDS: CALCIUM CARBONATE 500 MG CHEWABLE TAB PO SCH (08:12)
[2020-12-07] MEDS: HYDROCORTISONE ACETATE 25 MG SUPP PR SCH ×2 (08:15→20:27)
[2020-12-07 11:12] LABS: Hematocrit (blood only) 30.7 % (37-47); Hemoglobin 9.3 g/dL (12.0-16.0); Mean Corpuscular Hemoglobin 26.5 pg (25-34); Mean Corpuscular Hgb Conc 30.3 g/dL (32-36); Mean Corpuscular Volume 87.5 fL (80-100); Mean Platelet Volume 9.1 fL (7.4-10.4); Platelet Count 119 K/uL (130-400); RDW Coefficient of Variation 20.5 % (11.5-14.5); RDW Standard Deviation 65.4 fL (36.4-46.3); Red Blood Count 3.51 M/uL (4.2-5.4); White Blood Count 5.21 K/uL (4.8-10.8)
[2020-12-07 11:20] LABS: INR 3.2 (0.9-1.1); Prothrombin Time 29.6 Seconds (9.0-12.0)
[2020-12-07 11:28] LABS: Calcium 8.3 mg/dl (8.5-10.1); Creatinine Clr Calc Pharmacy 51.8 ml/min; Est GFR (African American) 76.9 ml/min; Est GFR (Non-African American) 66.4 ml/min; Potassium 4.3 mmol/L (3.5-5.1)
--- NOTE | 2020-12-07 11:54 | Cardiology Progress Note ---
Date of Service December 07, 2020 Assessment & Plan (1) Hypoxia: (2) Status post placement of cardiac pacemaker: (3) Supratherapeutic INR: The patient was admitted with a diagnosis of CHF but I do not see any component of heart failure. She does not examine his volume overloaded. Chest x-ray is unchanged compared to previous. Patient offers no complaints. No further cardiac testing or intervention necessary at this time. INR of 3.2 today would restart warfarin today as per outpatient protocol. Goal INR of 2-3 Okay to DC from a cardiac standpoint Admission and Anticipated Discharge Date Admission Date: December 05, 2020 Subjective Patient seen and examined, chart reviewed. States that she is feeling very agitated today given the fact that she was unable to bathe this morning. Otherwise denies any cardiac complaints. Telemetry reviewed: Ventricularly paced Review of Systems Review of Systems: All systems reviewed & are unremarkable except as noted in HPI & below Physical Exam Physical Exam: General: Awake, alert and oriented x 3. No acute distress but significantly agitated HEENT: Normocephalic, atraumatic. Pupils equal, round and reactive to light and accommodation. Extraocular muscles are intact. Anicteric sclera. Moist mucous membranes. Neck: No JVD. No bruit. Cardiovascular: irregularly irregular, unable to appreciate murmur, rub or gallop. Metallic S2 is present Pulmonary: Clear to auscultation bilaterally. No rales, rhonchi, or wheezing. Abdomen: Bowel sounds x 4, soft. No rebound, guarding or tenderness. No organomegaly. Extremities: No clubbing, cyanosis or edema. +2 pedal pulses bilaterally. Skin: Warm and dry. Results & Data ([facility]) Vital Signs (Past 12 Hours) Vital Signs Temp Pulse Pulse Pulse Resp BP Pulse Ox 12/07/20 11:14 36.5 C 60 18 148/73 H 98 12/07/20 07:49 60 12/07/20 07:20 36.3 C L 60 16 135/70 99 12/07/20 04:00 36.5 C 61 18 120/59 L 97
[2020-12-07] MEDS: ACETAMINOPHEN 325 MG TAB PO PRN (19:20)
[2020-12-07] MEDS: LORazepam 0.5 MG TAB PO PRN (20:26)
[2020-12-07] MEDS: MELATONIN 3 MG TAB PO SCH (20:28)
--- NOTE | 2020-12-07 21:51 | Hospitalist Progress Note ---
Date of Service December 07, 2020 Assessment & Plan (1) Acute on chronic diastolic (congestive) heart failure: 89 yo F w/ PMHx. of diastolic heart failure, HTN, GERD, valve replacement, hypothyroidism, is here for heart failure exacerbation with shortness of breath and hypoxia. Acute diastolic heart failure exacerbation, unclear precipitating factor on 3L baseline oxygen. Patient required nasal cannula but was unable to increase EKG with v. paced rhythm C-XR appears to show evidence of CHF exacerbation UA nl. - troponin mildly elevated continue to trend - Lasix 40 IV in ER, will resume Bumex. -hollding ARB and Beta bhargavi in the acute setting. -Will resume in AM - fluid restriction - monitor I's and O's -will continue HOME diuretics, as BNP is elevated. Plan: discharge on Tuesday back to [facility] replaced heart valve - INR supratherapeutic, holding warfarin. - continue ASA HTN - at goal. will monitor. Reflux - continue PPI Hemmorhoid Will order hydrocortisone cream AL BID improved Code: DNR w/o intubation (patient choose this today 12/05) Diet: HH DVT: Warfarin (on hold) will resume in AM (2) HTN (hypertension): (3) Status post bilateral knee replacements: (4) Fall: (5) Subtherapeutic international normalized ratio (INR): Admission and Anticipated Discharge Date Admission Date: December 05, 2020 Subjective Patient reports feeling well. Review of Systems Review of Systems: All systems reviewed & are unremarkable except as noted in HPI & below Physical Exam Physical Exam: Constitutional: WD/WN, vitals as above Eyes: PERRL, conjunctivae normal, anicteric sclerae ENMT: external ear and nose normal, oropharynx normal Neck: normal visual inspection Respiratory: CTA B/L Cardiovascular: RRR, no murmur, no edema Gastrointestinal (Abdomen): normal bowel sounds, soft, nontender, no hepatosplenomegaly Musculoskeletal: no cyanosis or clubbing, extremities motor strength 5/5 Skin: no rashes, warm and dry Neurologic: no focal motor deficits Psychiatric: Orientation: alert and oriented x 3 Results & Data Results & Data ([facility]) Vital Signs (Past 12 Hours) Vital Signs Temp Pulse Pulse Pulse Resp BP Pulse Ox 12/07/20 19:00 36.6 C 60 18 122/51 L 98 12/07/20 15:41 63 12/07/20 14:52 36.9 C 62 18 143/73 H 97 12/07/20 11:14 36.5 C 60 18 148/73 H 98 PG Care Time/CCT Total # of Minutes Spent Total Time Spent with Patient: Total time spent is greater than 50% in coordination of care (as documented) at patient's floor/unit and/or counseling patient: Coding Level of Care Code 43435 Subseq Hosp Care Lvl 2 Diagnoses Acute on chronic diastolic (congestive) heart failure I50.33 HTN (hypertension) I10 Status post bilateral knee replacements Z96.653 Fall W19.XXXA Encounter type: initial encounter Subtherapeutic international normalized ratio (INR) R79.1 Time Spent (min) 25 (1) Fall Encounter type: initial encounter Qualified Code(s): W19.XXXA - Unspecified fall, initial encounter
[2020-12-07] MEDS: CALCIUM CARBONATE 500 MG CHEWABLE TAB PO PRN (22:15)
[2020-12-08] MEDS: LEVOTHYROXINE SODIUM 100 MCG TABLET PO SCH (06:00)
[2020-12-08] MEDS: CALCIUM CARBONATE 500 MG CHEWABLE TAB PO PRN (06:02)
[2020-12-08] MEDS ORDERED: WARFARIN SOD 3 MG TAB PO ONE (07:00)
[2020-12-08] MEDS: RESTASIS: ORDER AWAITING ACTION SCH ×3 (07:42→23:33)
[2020-12-08] MEDS: EPLERENONE: ORDER AWAITING ACTION SCH ×3 (07:42→23:33)
[2020-12-08] MEDS: PANTOprazole 40 MG TAB PO SCH ×2 (07:44→20:15)
[2020-12-08] MEDS: CEROVITE ADV FORMULA TAB PO SCH (07:44)
[2020-12-08] MEDS: MAGNESIUM CHLORIDE 64MG DELAYED REL TAB PO SCH ×3 (07:44→20:14)
[2020-12-08] MEDS: ASPIRIN 81 MG ECTAB PO SCH (07:44)
[2020-12-08] MEDS: POTASSIUM CHLORIDE CRTAB 20 MEQ TABCR PO SCH ×2 (07:44→20:15)
[2020-12-08] MEDS: BUMETANIDE 1 MG TAB PO SCH ×2 (07:44→17:21)
[2020-12-08] MEDS: CALCIUM CARBONATE 500 MG CHEWABLE TAB PO SCH (07:45)
[2020-12-08] MEDS: DORZOLAMIDE/TIMOLOL 22.3/6.8MG/ML 10 ML BTL OPB SCH ×2 (07:45→20:15)
[2020-12-08] MEDS: HYDROCORTISONE ACETATE 25 MG SUPP PR SCH ×2 (07:46→20:13)
[2020-12-08] MEDS: LOSARTAN POTASSIUM 25 MG TAB PO SCH (08:25)
[2020-12-08] MEDS ORDERED: METOPROLOL SUCC 25MG EXT REL TAB PO SCH (09:00)
[2020-12-08 11:12] LABS: INR 2.4 (0.9-1.1); Prothrombin Time 22.4 Seconds (9.0-12.0)
[2020-12-08 11:27] LABS: BUN Creatinine Ratio 35.7 (10-20); Calcium 8.8 mg/dl (8.5-10.1); Creatinine Clr Calc Pharmacy 55.8 ml/min; Est GFR (African American) 84.6 ml/min; Magnesium 2.1 mg/dl (1.8-2.4); Potassium 4.6 mmol/L (3.5-5.1)
--- NOTE | 2020-12-08 12:44 | Hospitalist Progress Note ---
Date of Service December 08, 2020 Assessment & Plan (1) Acute on chronic diastolic (congestive) heart failure: 89 yo F w/ PMHx. of chronic diastolic and right-sided heart failure, HTN, GERD, mechanical aortic valve replacement, hypothyroidism, chronic atrial fibrillation on Coumadin, PPM, chronic respiratory failure with hypoxia, GERD, pulmonary hypertension, anemia, hyponatremia, is here for heart failure exacerbation with shortness of breath and hypoxia. Acute diastolic heart failure exacerbation, presented with worsening hypoxia, elevated proBNP, bibasilar crackles, weight elevated from previous, and chest x- ray with evidence of CHF. During her recent admission and discharge on 11/14, her Lasix 60 mg p.o. twice daily was changed to Bumex 1 mg p.o. daily. She was then seen by her cardiology PA on 11/19 and her Bumex was increased to 1 mg p.o. twice daily. Troponin minimally elevated upon admission and trended downward Was diuresed initially and now is on Bumex 1 mg p.o. twice daily which was her home dose as of 11/19-consider increasing dose Weight is down from admission, she is about even on her I's and O's No shortness of breath over her usual Seen by cardiology who does not think she has acute CHF on 2L baseline oxygen is on 3 L here EKG with v. paced rhythm -Continue fluid restriction - monitor I's and O's -Continue to replace potassium Follow BMP (2) HTN (hypertension): Blood pressures are controlled Her losartan was restarted at a lower dose of 25 mg once daily but usual home dose is 50 mg p.o. twice daily Toprol-XL was started this admission but typically she is on metoprolol tartrate 100 mg p.o. 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 Continue pantoprazole 40 mg twice daily (6) Hypokalemia: Mild, replace with oral potassium chloride Follow BMP and magnesium in the morning (7) Hypomagnesemia: Continue home magnesium supplement (8) Hyponatremia: Sodium here is only borderline low at 135 She has been lower in the past due to volume overload Follow BMP (9) Hypoxia: With acute on chronic respiratory failure with hypoxia-typically is on 2 L nasal cannula at home for severe pulmonary hypertension and CHF Is requiring 3 L here due to CHF exacerbation as above Wean back down to 2 L nasal cannula as able to pulse ox greater than 88% Diuresis (10) Aortic valve replaced: As noted above (11) Atrial fibrillation: Permanent atrial fibrillation, is paced mostly on telemetry here Continue anticoagulation with Coumadin (12) 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 (13) Pulmonary hypertension: Noted to be severe as per cardiology notes Continue O2 therapy and diuresis (14) Elevated troponin: Mildly elevated upon admission and decreased after that, likely suspected myocardial demand ischemia secondary to CHF Not acute coronary syndrome (15) Dysphagia: Patient complains of difficulty swallowing She had normal esophagus on EGD in the last couple of months Could be of esophageal dysmotility in the elderly Consult speech therapy Disposition-continued stay, awaiting PT/OT consultations and will likely discharge back to [facility] tomorrow. Stable for downgrade to medical/surgical floor Admission and Anticipated Discharge Date Admission Date: December 05, 2020 Subjective Patient reports feeling fairly well today. She always has some shortness of breath. She is on 3 L nasal cannula. She reports she is usually on 2 or 3 L at home. Denies chest pain. No lightheadedness. She is eating and drinking. Telemetry with paced rhythm, PVCs, rates in the 60s. Review of Systems Review of Systems: All systems reviewed & are unremarkable except as noted in HPI & below Physical Exam Constitutional: WD/WN, vitals as above Eyes: + anicteric sclerae Neck: trachea midline, no thyromegaly Respiratory: normal respiratory effort Auscultation: + crackles (At the bases bilaterally); no rhonchi and no wheezes Cardiovascular: Rate/Rhythm: regular rate and regular rhythm Extremities: + edema (2+ pitting woody edema to the knees bilaterally) Chest (Breasts): Chest: normal inspection of chest Gastrointestinal (Abdomen): normal bowel sounds, soft, nontender, no hepatosplenomegaly Musculoskeletal: Extremities: no cyanosis and no clubbing Skin: no rashes, warm and dry Neurologic: moves all extremities and awake; no focal motor deficits Psychiatric: A+Ox3, euthymic affect Results & Data Results & Data ([facility]) Vital Signs (Past 12 Hours) Vital Signs Temp Pulse Pulse Resp BP Pulse Ox 12/08/20 11:20 36.8 C 78 16 116/65 95 12/08/20 07:17 37.0 C 58 L 16 122/65 97 12/08/20 04:00 36.6 C 62 18 122/67 95 Laboratory Results 12/08/20 12/08/20 Range/Units 10:48 10:48 PT 22.4 H (9.0-12.0) Seconds INR 2.4 H (0.9-1.1) Sodium 135 L (136-145) mmol/L Potassium 4.6 (3.5-5.1) mmol/L Chloride 97 L (98-107) mmol/L Carbon Dioxide 36 H (21-32) mmol/L Anion Gap 2.0 L (3-11) BUN 26 H (7-18) mg/dl Creatinine 0.73 (0.6-1.2) mg/dl Est Cr Clr Drug Dosing 55.8 ml/min Est GFR ( Amer) 84.6 ml/min Est GFR (Non-Af Amer) 73.0 ml/min BUN/Creatinine Ratio 35.7 H (10-20) Glucose 121 H (70-99) mg/dl Calcium 8.8 (8.5-10.1) mg/dl Magnesium 2.1 (1.8-2.4) mg/dl PG Care Time/CCT Total # of Minutes Spent Total Time Spent with Patient: Total time spent is greater than 50% in coordination of care (as documented) at patient's floor/unit and/or counseling patient: Coding Level of Care Code 66124 Subseq Hosp Care Lvl 3 Diagnoses Acute on chronic diastolic (congestive) heart failure I50.33 HTN (hypertension) I10 Subtherapeutic international normalized ratio (INR) R79.1 Anticoagulated with warfarin Z79.01 Duodenal ulcer K26.9 Hypokalemia E87.6 Hypomagnesemia E83.42 Hyponatremia E87.1 Hypoxia R09.02 Aortic valve replaced Z95.2 Atrial fibrillation I48.91 Atrial fibrillation type: unspecified Status post placement of cardiac pacemaker Z95.0 Pulmonary hypertension I27.20 Elevated troponin R77.8 Dysphagia R13.10 (1) Atrial fibrillation Atrial fibrillation type: unspecified Qualified Code(s): I48.91 - Unspecified atrial fibrillation
[2020-12-08] MEDS ORDERED: SIMETHICONE 80 MG CHEW PO PRN (15:09)
[2020-12-08] MEDS ORDERED: WARFARIN SOD 3 MG TAB PO SCH (16:00)
[2020-12-08] MEDS: MELATONIN 3 MG TAB PO SCH (20:12)
[2020-12-08] MEDS: LORazepam 0.5 MG TAB PO PRN (20:19)
[2020-12-09] MEDS: LEVOTHYROXINE SODIUM 100 MCG TABLET PO SCH (06:20)
[2020-12-09] MEDS: RESTASIS: ORDER AWAITING ACTION SCH (07:04)
[2020-12-09] MEDS: EPLERENONE: ORDER AWAITING ACTION SCH (07:04)
[2020-12-09] MEDS: CALCIUM CARBONATE 500 MG CHEWABLE TAB PO SCH (07:15)
[2020-12-09] MEDS: HYDROCORTISONE ACETATE 25 MG SUPP PR SCH (07:15)
[2020-12-09] MEDS: ASPIRIN 81 MG ECTAB PO SCH (07:15)
[2020-12-09] MEDS: MAGNESIUM CHLORIDE 64MG DELAYED REL TAB PO SCH ×2 (07:16→13:24)
[2020-12-09] MEDS: CEROVITE ADV FORMULA TAB PO SCH (07:16)
[2020-12-09] MEDS: BUMETANIDE 1 MG TAB PO SCH (07:16)
[2020-12-09] MEDS: LOSARTAN POTASSIUM 25 MG TAB PO SCH (07:16)
[2020-12-09] MEDS: PANTOprazole 40 MG TAB PO SCH (07:16)
[2020-12-09] MEDS: POTASSIUM CHLORIDE CRTAB 20 MEQ TABCR PO SCH (07:16)
[2020-12-09] MEDS: METOPROLOL TARTRATE 100 MG TAB PO SCH ×2 (07:17→13:23)
[2020-12-09] MEDS: DORZOLAMIDE/TIMOLOL 22.3/6.8MG/ML 10 ML BTL OPB SCH (07:17)
[2020-12-09 08:03] LABS: INR 2.5 (0.9-1.1); Prothrombin Time 23.5 Seconds (9.0-12.0)
[2020-12-09 08:27] LABS: BUN Creatinine Ratio 33.9 (10-20); Creatinine Clr Calc Pharmacy 58.9 ml/min; Est GFR (African American) 89.5 ml/min; Est GFR (Non-African American) 77.2 ml/min; Magnesium 1.9 mg/dl (1.8-2.4); Potassium 3.9 mmol/L (3.5-5.1)
[2020-12-09] MEDS ORDERED: BUMETANIDE 0.5 MG in SYRINGE 0 ML IV ONE (09:30)
--- NOTE | 2020-12-09 13:28 | Discharge Summary ---
Date of Service December 09, 2020 Admission HPI Per Admitting Provider 89 yo female reports she was at [facility] while sitting in bed when she found that her oxygen saturation was lower. Patient reports that her oxygen saturation was not increasing despite her using nasal cannula, and patient was brought in the hospital. Patient however, reports she wa snot having any significant SOB or wheezing. Patient has chronic lower extremity edema nut reports it is worse than usual. Patient has a history of a fibrillation and is in related on Coumadin. She states she has a pacemaker in place. She states she has had both Covid shots for at least a month. She does wear oxygen occasionally at night. She has had an occasional cough. Patient reports having a hemorrhoid and would like to have that treated. Patient reports having to use 3 liters nasal cannula now at baseline. Principal Diagnosis Acute on chronic diastolic CHF Discharge Exam Constitutional WD/WN, vitals as above Eyes + anicteric sclerae Neck trachea midline, no thyromegaly Respiratory normal respiratory effort, lungs clear to auscultation normal respiratory effort Cardiovascular Rate/Rhythm: regular rate and regular rhythm Extremities: + edema (1+ pitting edema) Chest (Breasts) Chest: normal inspection of chest Gastrointestinal (Abdomen) normal bowel sounds, soft, nontender, no hepatosplenomegaly Musculoskeletal Extremities: no cyanosis and no clubbing Skin no rashes, warm and dry Neurologic moves all extremities and awake; no focal motor deficits Psychiatric A+Ox3, euthymic affect Discharge Data Allergies Allergy/AdvReac Type Severity Reaction Status Date / Time Sulfa (Sulfonamide Allergy Intermediate HIVES Verified 12/12/20 18:43 Antibiotics) Consultations 12/05/20 08:40 ED Decision to Admit Stat 12/05/20 12:13 Consult Cardiology Routine Ordered Studies Chest X-Ray 12/05/20 06:02 XR chest 1V portable HISTORY: Hypoxia. COMPARISON: Chest 11/09/2020. FINDINGS: Redemonstration of the perihilar interstitial/vascular thickening likely representing mild pulmonary edema. There are trace bilateral pleural effusions. Near densities within left midlung zone and right lung base persist and favor scarring or atelectasis. The heart is enlarged. There are poststernotomy changes and cardiac valve prostheses. Left-sided single lead pacemaker is again noted. No pneumothorax. Bibasilar densities also suggesting atelectasis. IMPRESSION: Cardiomegaly with mild interstitial pulmonary edema and bilateral pleural effusions. This is similar to the prior study. Bibasilar densities favor ate lectasis and also remains unchanged. ACT 112: Negative or not required by law. Electronically signed by: Ilya Russ M.D. 12/05/2020 8:30 AM Hospital Course (1) Acute on chronic diastolic (congestive) heart failure: 89 yo F w/ PMHx. of chronic diastolic and right-sided heart failure, HTN, GERD, mechanical aortic valve replacement, hypothyroidism, chronic atrial fibrillation on Coumadin, PPM, chronic respiratory failure with hypoxia, GERD, pulmonary hypertension, anemia, hyponatremia, is here for heart failure exacerbation with shortness of breath and hypoxia. Acute diastolic heart failure exacerbation, presented with worsening hypoxia, elevated proBNP, bibasilar crackles, weight elevated from previous, and chest x- ray with evidence of CHF. During her recent admission and discharge on 11/14, her Lasix 60 mg p.o. twice daily was changed to Bumex 1 mg p.o. daily. She was then seen by her cardiology PA on 11/19 and her Bumex was increased to 1 mg p.o. twice daily. Troponin minimally elevated upon admission and trended downward consistent with suspected myocardial demand ischemia in the setting of CHF Was diuresed initially and was then placed on Bumex 1 mg p.o. twice daily which was her home dose as of 11/19-we will increase the dose to 2 mg in the morning and 1 mg in the afternoon Weight is down from admission by 2.8 kg and she feels better No shortness of breath over her usual Seen by cardiology who does not think she has acute CHF on 2L baseline oxygen is on 3 L here EKG with v. paced rhythm -Continue fluid restriction upon discharge - monitor I's and O's Stable for discharge with close follow-up planned with cardiology tomorrow (2) HTN (hypertension): Blood pressures are controlled Her losartan was restarted at a lower dose of 25 mg once daily but usual home dose is 50 mg p.o. twice daily Toprol-XL was started this admission but typically she is on metoprolol tartrate 100 mg p.o. 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 Continue pantoprazole 40 mg twice daily (6) Hypokalemia: Mild, replaced and resolved (7) Hypomagnesemia: Continue home magnesium supplement Normal on the day of discharge (8) Hyponatremia: Sodium here is only borderline low at 135 She has been lower in the past due to volume overload Follow BMP as an outpatient (9) Hypoxia: With acute on chronic respiratory failure with hypoxia-typically is on 3 L nasal cannula at home for severe pulmonary hypertension and CHF Continue 3 L continuously (10) Aortic valve replaced: As noted above (11) Atrial fibrillation: Permanent atrial fibrillation, is paced mostly on telemetry here Continue anticoagulation with Coumadin (12) 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 (13) Pulmonary hypertension: Noted to be severe as per cardiology notes Continue O2 therapy and diuresis (14) Elevated troponin: Mildly elevated upon admission and decreased after that, likely suspected myocardial demand ischemia secondary to CHF Not acute coronary syndrome (15) Dysphagia: Patient complains of difficulty swallowing She had normal esophagus on EGD in the last couple of months Could be of esophageal dysmotility in the elderly Consult speech therapy appreciated Disposition-stable for discharge back to personal [facility] Total Time Total Time Spent Total Time Spent (In Minutes): 35 minutes Total Time Includes: Examination of the Patient, Discharge Planning and Medication Reconciliation Discharge Plan Discharge Items Patient Disposition: Personal Halfway Reason For Visit: CHF Discharge Diagnosis: Acute on chronic diastolic and right sided heart failure, Acute on chronic respiratory failure with hypoxia Condition on Discharge: Fair Activity: Resume your previous activity Non-emergency contact: Primary Care Provider and Senior Principal Process Engineer Call non-emergency contact if: you have any medication questions and your symptoms worsen Follow-up/Referrals: Jabier Wall [Physician Gas Distribution Plant Operator] - (Please follow up as previously scheduled with Jabier Wall of [facility] on 12/10/20 at 11:30. ) [facility] [employer] [facility] [Primary Care Provider] - (Please follow up within 1 week) Diet: Heart Healthy and Low Sodium (2gm) Fluids: 1500ml (6 cups) Addtl Attending Provider Instructions: You were admitted for low oxygen levels and fluid overload. You were treated with IV diuretics and will be discharged to home with a higher dose of your water bill. Your Bumex dose will now be 2mg in the morning and 1mg in the evening. Please have lab work done to check both your basic metabolic panel and your PT/INR in 2-3 days. The visiting nurse can draw this for you at your home. Please follow up with Cardiology and your PCP within 1-2 weeks. Please continue on oxygen 3L via nasal cannula, continuously. Call your Primary Care doctor if any of the following symptoms or problems start or get worse: * Shortness of breath or difficulty breathing * Wake up at night short of breath * Chest pain * Cough * Swelling of your hands, feet, or legs * More fatigued or tired with your normal activity * Palpitations - sudden fast heart beats WEIGHT * Weigh yourself every morning after using the bathroom. * Use the same scale. * Wear the same amount of clothing. * Write your weight down on a chart. * Call your Primary Care doctor if you gain more than 2-3 pounds in 1-2 days. MEDICATIONS * Use this discharge instruction sheet for medication instructions. * Take your medications at the time your doctor ordered. * Do not skip a dose of your medicines. * If you miss a dose of medicine, take it as soon as possible, but DO NOT DOUBLE A DOSE. * Read your medicine information when you get home. * Know all of the side effects of your medicine. If in doubt, ask your p harmacist * Call your Primary Care doctor's office if you have any side effects. * Be sure all of your doctors know what medicine and herbs you take (including cold, flu, and herbal medicine). Take the following with you to your follow-up doctor appointments: * Weight Chart * Medication List * List of questions Do not drink excessive alcohol, beer or wine. Pending Studies at Discharge: No Stand-Alone Forms: My I Do Venues, Smoking Cessation Medications and DC Order Prescriptions: New simethicone [Mi-Acid Gas Relief(simethicon)] 80 mg Tablet,Chewable 80 mg PO Q6H PRN (Reason: gas pains) Qty: 30 RF: 0 Continued Centrum Silver Women 8 mg iron-400 mcg-300 mcg Tablet 1 tab PO DAILY Qty: 0 RF: 0 metoprolol tartrate 100 mg Tablet 100 mg PO BID Qty: 0 RF: 0 lorazepam [Ativan] 0.5 mg Tablet 0.5 mg PO BID PRN (Reason: Anxiety) Qty: 0 RF: 0 (DME) Oxygen Home Liters Per Minute 2 liters NA HS Qty: 0 RF: 0 dorzolamide-timolol [Cosopt] 22.3-6.8 mg/mL drops 1 drp OPB BID RF: 0 hydrocortisone 2.5 % cream 1 applic TOPICAL BID PRN (Reason: Skin Irritation) RF: 0 eplerenone 25 mg tablet 25 mg PO DAILY RF: 0 loperamide 2 mg Capsule 2 mg PO Q6H PRN (Reason: Diarrhea) RF: 0 Restasis 0.05 % dropperette 1 drp OPB BID RF: 0 acetaminophen 325 mg Tablet 650 mg PO Q4H MDD 3 GRAMS/24 HOURS PRN (Reason: Pain) RF: 0 Lactobacillus acidoph-L.bulgar [Floranex] 1 million cell Tablet 2 tab PO BID RF: 0 potassium chloride [Klor-Con M20] 20 mEq tablet,ER particles/crystals 40 meq PO BID RF: 0 losartan 50 mg tablet 25 mg PO BID RF: 0 calcium carbonate [Tums] 300 mg (750 mg) Tablet,Chewable 600 mg PO DAILY RF: 0 warfarin 3 mg Tablet See Rx Instructions .ROUTE .COMPLEX RF: 0 levothyroxine 100 mcg Tablet 100 mcg PO DAILYBB RF: 0 Preparation H 0.25-14-74.9 % Ointment 1 applic [place] AMHS PRN (Reason: Hemorrhoids) RF: 0 aspirin 81 mg Tablet,Chewable 81 mg PO DAILY RF: 0 trolamine salicylate 10 % Cream 1 applic TOPICAL TID PRN (Reason: Pain) RF: 0 Heri Protect Cream 1 applic TOPICAL DAILY RF: 0 melatonin 5 mg Tablet 5 mg PO HS RF: 0 Slow Mag 64mg 64 mg PO TID RF: 0 pantoprazole 40 mg tablet,delayed release (DR/EC) 40 mg PO BID RF: 0 Discontinued bumetanide 1 mg tablet 1 mg PO BID RF: 0 No Action netarsudil 0.02 % Drops 1 drp OPB PM RF: 0 bumetanide 1 mg tablet See Rx Instructions .ROUTE .COMPLEX RF: 0 Discharge Orders: Discharge Order (Routine); Ordered 12/09/20 Ordered By: Breanna Snowden Admission Data Admit Date/Time: 12/05/20 10:16 Attending Provider: Breanna Snowden Admit Provider: Raul Redman Primary Care Provider[facility] [employer] [facility] Other Providers: Raul Redman ; Aris Jimenes Other Interventions: Discharge Summary Assessment (RN) Last Done: 12/09/20 13:42 Coding Level of Care Code D/C Day Management >30 mins Diagnoses Acute on chronic diastolic (congestive) heart failure I50.33 HTN (hypertension) I10 Subtherapeutic international normalized ratio (INR) R79.1 Anticoagulated with warfarin Z79.01 Duodenal ulcer K26.9 Hypokalemia E87.6 Hypomagnesemia E83.42 Hyponatremia E87.1 Hypoxia R09.02 Aortic valve replaced Z95.2 Atrial fibrillation I48.91 Atrial fibrillation type: unspecified Status post placement of cardiac pacemaker Z95.0 Pulmonary hypertension I27.20 Elevated troponin R77.8 Dysphagia R13.10
[2020-12-09] MEDS ORDERED: WARFARIN SOD 1 MG TAB PO SCH (16:00)
[2020-12-09] MEDS ORDERED: WARFARIN SOD 0.5 MG TAB PO SCH (16:00)
== END 2020-12-09 16:28 | disposition home or self-care (01) | DRG 291 ==
LOC: ED 05:40 → SUATTDRO 10:16 → 2N 10:16

== ENCOUNTER 2020-12-12 17:57 | Inpatient (IN) ==
[2020-12-12] MEDS ORDERED: ASPIRIN CHEW 324 MG PO STA (17:59)
[2020-12-12] MEDS ORDERED: SODIUM CHLORIDE 0.9% 1000ML 250 ML IV ONE (18:06)
--- NOTE | 2020-12-12 18:29 | Emergency Department Note ---
History of Present Illness General Chief Complaint: Respiratory Problems Stated Complaint: LOW PULSE OX Time Seen by Provider: 12/12/20 17:58 History of Present Illness Provider Complaint: shortness of breath Onset (ago): day(s) (1) Severity: moderate Consistency/Duration: + constant and + progressively worsening Relieved By: + upright position Exacerbated By: + lying flat and + exertion Context: no choking/aspiration, no medication noncompliance, no anxiety and no CO exposure Known history of: congestive heart failure Associated symptoms: + orthopnea; no chest pain, no pain with inspiration, no fever, no cough, no wheezing, no sputum production, no polyuria, no palpit ations, no hemoptysis, no diaphoresis, no nausea/vomiting, no syncope, no abdomi nal pain, no rash and no dizziness Related Data Home oxygen amount: 2 liters Home Medications Medication Instructions Recorded Confirmed Type Centrum Silver Women 1 tab PO DAILY #0 07/31/13 12/12/20 History Oxygen Home #0 09/10/13 11/05/20 History lorazepam [Ativan] 0.5 mg PO BID PRN #0 tab 09/10/13 12/12/20 History metoprolol tartrate 100 mg PO BID #0 tab 09/10/13 12/12/20 History dorzolamide-timolol [Cosopt] 1 drp OPB BID 08/12/19 12/12/20 History Restasis 1 drp OPB BID 09/18/20 12/12/20 History eplerenone 25 mg PO DAILY 09/18/20 12/12/20 History hydrocortisone 1 applic TOPICAL BID PRN 09/18/20 12/12/20 History loperamide 2 mg PO Q6H PRN 09/18/20 12/12/20 History Lactobacillus acidoph-L.bulgar 2 tab PO BID 11/05/20 12/12/20 History [Floranex] acetaminophen 650 mg PO Q4H PRN MDD 3 GRAMS/24 11/05/20 12/12/20 History HOURS potassium chloride [Klor-Con M20] 40 meq PO BID 11/05/20 12/12/20 History Preparation H 1 applic [place] AMHS PRN 11/07/20 12/12/20 History calcium carbonate [Tums] 600 mg PO DAILY 11/07/20 12/12/20 History levothyroxine 100 mcg PO DAILYBB 11/07/20 12/12/20 History losartan 25 mg PO BID 11/07/20 12/12/20 History warfarin See Rx Instructions .ROUTE .COMPLEX 11/07/20 12/12/20 History Heri Protect 1 applic TOPICAL DAILY 12/05/20 12/12/20 History Slow Mag 64mg 64 mg PO TID 12/05/20 12/12/20 History aspirin 81 mg PO DAILY 12/05/20 12/12/20 History melatonin 5 mg PO HS 12/05/20 12/12/20 History pantoprazole 40 mg PO BID 12/05/20 12/12/20 History trolamine salicylate 1 applic TOPICAL TID PRN 12/05/20 12/12/20 History simethicone [Mi-Acid Gas 80 mg PO Q6H PRN #30 tab 12/09/20 12/12/20 Rx Relief(simethicon)] bumetanide See Rx Instructions .ROUTE .COMPLEX 12/12/20 12/12/20 History netarsudil 1 drp OPB PM 12/12/20 12/12/20 History Allergies Allergy/AdvReac Type Severity Reaction Status Date / Time Sulfa (Sulfonamide Allergy Intermediate HIVES Verified 12/12/20 18:43 Antibiotics) Past Med/Surg History Medical History Acute diverticulitis Acute hyponatremia Acute hyponatremia Acute on chronic diastolic (congestive) heart failure RV dysfunction Acute onset of severe vertigo (07/31/13) Acute urinary retention Anemia Atrial fibrillation CHF (congestive heart failure) Cholecystitis Choledocholithiasis Dizziness Elevated troponin HTN (hypertension) Hyponatremia Pacemaker Pulmonary hypertension Thickened endometrium Thyroid disease Vertigo Surgical History Aortic valve replaced no further details provided from facility record History of colonoscopy History of heart valve replacement 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 Status post Mohs surgery Status post placement of cardiac pacemaker no further details provided from facility record Family History Brother Cancer Sister Cancer Social History Smoking Status: Never smoker Tobacco Type: Cigarettes Second Hand Exposure: No; Hx Alcohol Use: No Hx Substance Use: No Preferred Language: Uzbek Communication Ability: Effective 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 Beliefs That Will Affect Care: None marital status: / Current Living Situation: Personal Care Facility Current Living Situation Comment: [facility] How many Children do You have: 2 Feels Safe at Home: Yes Assistive Devices: Glasses, Oxygen - Continuous and Walker Review of Systems A total of 10 systems reviewed and were otherwise negative Physical Exam Vital Signs: Vital Signs - 24 hr 12/12/20 17:56 12/12/20 18:39 12/12/20 18:50 Temperature 37.7 C H Temperature Source Oral Pulse Rate 87 Pulse Rate [Right Finger] 60 60 Respiratory Rate 16 16 Respiratory Effort / Characteristics Non-Labored Non-Labored Respiratory Depth Normal Normal Respiratory Patter n Blood Pressure 91/52 L Blood Pressure [Ri ght Arm] 100/50 L 106/47 L Blood Pressure Angela n 65 Blood Pressure Angela n [Right Arm] 66 66 Blood Pressure Pos ition Sitting Blood Pressure Pos ition [Right Arm] Sitting Pulse Oximetry 94 100 Oxygen Delivery Me thod Nasal Cannula Nasal Cannula Nasal Cannula Oxygen Flow Rate 4 4 4 Sepsis Recent Feve r Within 48 Hours No Sepsis New/Unexpla ined Change in Men alessia Status N/A Sepsis Action Take n by Nursing No Action Required 12/12/20 18:52 Temperature Temperature Source Pulse Rate Pulse Rate [Right Finger] Respiratory Rate Respiratory Effort / Characteristics Non-Labored Respiratory Depth Normal Respiratory Patter n Regular Blood Pressure Blood Pressure [Ri ght Arm] Blood Pressure Angela n Blood Pressure Angela n [Right Arm] Blood Pressure Pos ition Blood Pressure Pos ition [Right Arm] Pulse Oximetry Oxygen Delivery Me thod Nasal Cannula Oxygen Flow Rate 4 Sepsis Recent Feve r Within 48 Hours Sepsis New/Unexpla ined Change in Men alessia Status Sepsis Action Take n by Nursing Physical Exam: Physical Exam GENERAL: She is oriented to person, place, and time. She appears well-developed and well-nourished. She does not appear distressed. HENT: Exam performed. -Head: Normocephalic and atraumatic. -Right Ear: External ear normal. No mastoid tenderness. -Left Ear: External ear normal. No mastoid tenderness. -Mouth/Throat: The oropharynx is clear and moist. No trismus in the jaw. No dental abscesses or uvula swelling. No oropharyngeal exudate or tonsillar abscesses. EYES: Conjunctivae and EOM are normal. Pupils are equal, round, and reactive to light. Right eye exhibits no discharge. Left eye exhibits no discharge. No scleral icterus. NECK: Normal range of motion. Neck supple. No JVD present. No spinous process tenderness present. No carotid bruit present. No rigidity. No tracheal deviation and normal range of motion present. No Brudzinski's sign and no Kernig's sign noted. CV: Normal rate, regular rhythm, normal heart sounds and intact distal pulses. Palpable radial pulses bue. PULM/CHEST: Inspiratory rales bilaterally. -Chest Wall: She exhibits no tenderness. ABD: The abdomen is soft. Bowel sounds are normal. She has no distension. No mass is present. There is no tenderness. There is no rebound, no guarding, no Kramer's sign and no tenderness at McBurney's point. Rovsig negative MUSC/SKEL: 1+ pitting edema of the bilateral lower extremities. LYMPH: No cervical adenopathy. NEURO: She is alert and oriented to person, place, and time. She has normal strength. No cranial nerve deficit or sensory deficit. GCS eye subscore is 4. GCS verbal subscore is 5. GCS motor subscore is 6. Cerebellar tests wnl. SKIN: Skin is warm and dry. She is not diaphoretic. PSYCH: She has a normal mood and affect. Behavior is normal. Judgment and thought content normal. Course Course 1757: The patient was evaluated in room B4. A complete history and physical exam was performed Cardiac monitoring: An order was placed for continuous cardiac monitoring. The monitor shows a rate of 60 with paced rhythm Patient was found to be hypoxic on her home 2 L with an oxygen saturation 80s. Patient's oxygen was bumped up to 4 L via nasal cannula which improved her oxygen saturation. The patient was found to be hypotensive with a manual and automatic blood pressure reading in the systolic 90s and diastolic in the 50s. The patient does have a long history of CHF and is thought that she is in CHF exacerbation given her hypoxia, rales at the bases, and pitting edema, however we will attempt to give her a small 250 cc normal saline bolus to improve her blood pressure. EMR reviewed. Patient has a long history of hypoxia pulmonary artery hypertension, hypertension, and congestive heart failure. Patient has her her aortic valve replaced. Patient is on Coumadin for atrial fibrillation. Patient has a pacemaker placed. Patient was recently admitted to the hospital from December 05, 2020 to December 09, 2020, she was discharged 3 days ago. Per the discharge summary, the patient was switched from her Lasix 60 mg p.o. twice daily to Bumex 1 mg p.o. daily and was increased to Bumex twice daily. Patient was discharged on 3 L of nasal cannula oxygen. When the patient presented to the hospital during her last admission her weight was 86 kg. When she was discharged after diuresis her weight was 83 kg. Per the EMR, the patient was a DNR/DNI, this was filled out by Dr. Юлия WOLF. 1848: Blood pressure status post 250 cc normal saline bolus 100/50 manually. 1913: Vital signs stable. No more fluids given at this time. Patient has a white blood cell count 14.65. Patient has not had a white blood cell count this high on previous admission. Patient's lactic acid above 3. Chest x-ray does show bilateral pleural effusions stable on the left and new on the right. There is atelectasis and infiltrate at the left base and densities in the right mid left lung which could represent atelectasis or pneumonia. There is stable cardiomegaly and mild pulmonary edema. Given the patient's long history of CHF, judicious fluid boluses will be given and will not be given 30 cc/kg bolus at this time. We will hold off on additional boluses of fluid as long as patient's systolic blood pressure remains above 100. Antibiotics cefepime and vancomycin ordered for the patient for possible pneumonia. Urinalysis also ordered for the patient. COVID-19 swab will be ordered for the patient. Patient's troponin is elevated at 0.107 and her proBNP is elevated 16,526, the patient is now reporting chest pain is thought that the troponin elevation could be due to CHF. INR subtherapeutic at 1.7. We will plan on admitting the patient to the [facility] team Dr. Dalton will be notified. 1929: Discussed the case with Dr. Dalton and both she and I feel that we should hold off on any diuretics given the patient's hypotension on arrival in need of IV fluids. Administered Medications Vancomycin HCl 1,750 mg/ (Sodium Chloride) 535 mls @ 200 mls/hr IV NOW ONE Stop: 12/12/20 21:33 Last Admin: 12/12/20 19:26 Dose: 200 mls/hr Documented by: [id number] Miscellaneous Information (Vancomycin Consult Active) 1 ea N/A UD PRN PRN Reason: Consult Stop: 01/11/21 18:52 Last Admin: 12/12/20 19:25 Dose: 1 ea Documented by: [id number] Discontinued Medications Aspirin (Aspirin Chew 324 Mg) 324 mg PO NOW STA Stop: 12/12/20 18:00 Last Admin: 12/12/20 19:26 Dose: 324 mg Documented by: [id number] Sodium Chloride (Nss 1000ml) 250 mls @ 999 mls/hr IV .Q16M ONE Stop: 12/12/20 18:21 Last Infusion: 12/12/20 18:41 Dose: 0 mls/hr Documented by: [id number] Admin: 12/12/20 18:25 Dose: 999 mls/hr Documented by: [id number] Cefepime HCl (Maxipime) 2,000 mg in 20 mls @ 5 mls/min IV NOW STA; Protocol Stop: 12/12/20 18:56 Last Admin: 12/12/20 19:26 Dose: 5 mls/min Documented by: [id number] Medical Decision Making Laboratory Data Result diagrams: 12/12/20 18:19 12/12/20 18:19 Lab Results 12/12/20 12/12/20 12/12/20 Range/Units 18:19 18:19 18:19 WBC 14.65 H (4.8-10.8) K/uL RBC 3.90 L (4.2-5.4) M/uL Hgb 10.3 L (12.0-16.0) g/dL Hct 34.1 L (37-47) % MCV 87.4 (80-100) fL MCH 26.4 (25-34) pg MCHC 30.2 L (32-36) g/dL RDW Std Deviation 66.7 H (36.4-46.3) fL RDW Coeff of Sia 21.1 H (11.5-14.5) % Plt Count 122 L (130-400) K/uL MPV 9.7 (7.4-10.4) fL Immature Gran % (Auto) 0.3 % Neut % (Auto) 89.9 % Lymph % (Auto) 6.3 % Cataño % (Auto) 3.3 % Eos % (Auto) 0.1 % Baso % (Auto) 0.1 % Neut # (Auto) 13.18 H (1.4-6.5) K/uL Lymph # (Auto) 0.92 L (1.2-3.4) K/uL Cataño # (Auto) 0.49 (0.11-0.59) K/uL Eos # (Auto) 0.01 (0-0.5) K/uL Baso # (Auto) 0.01 (0-0.2) K/uL Immature Gran # (Auto) 0.04 H (0.00-0.02) K/uL Polychromasia 1+ Hypochromasia Present Basophilic Stippling 1+ Anisocytosis Present PT 16.7 H (9.0-12.0) Seconds INR 1.7 H (0.9-1.1) APTT 30.2 (21.0-31.0) Seconds PTT Ratio 1.1 VBG pH 7.33 L (7.36-7.41) VBG pCO2 76 H (38-50) mmHg VBG pO2 22 mmHg VBG HCO3 39 mmol/L VBG O2 Saturation < 60.0 % VBG Base Excess 10.9 mEq/L Barometric Pressure 730.4 mm/Hg Sodium (136-145) mmol/L Potassium (3.5-5.1) mmol/L Chloride (98-107) mmol/L Carbon Dioxide (21-32) mmol/L Anion Gap (3-11) BUN (7-18) mg/dl Creatinine (0.6-1.2) mg/dl Est Cr Clr Drug Dosing ml/min Est GFR ( Amer) ml/min Est GFR (Non-Af Amer) ml/min BUN/Creatinine Ratio (10-20) Glucose (70-99) mg/dl Lactate (0.4-2.0) mmol/L Calcium (8.5-10.1) mg/dl Magnesium (1.8-2.4) mg/dl Troponin I (0-0.045) ng/ml NT-Pro-B Natriuret Pep (0-1800) pg/ml Lipase (73-393) U/L 12/12/20 12/12/20 Range/Units 18:19 18:19 WBC (4.8-10.8) K/uL RBC (4.2-5.4) M/uL Hgb (12.0-16.0) g/dL Hct (37-47) % MCV (80-100) fL MCH (25-34) pg MCHC (32-36) g/dL RDW Std Deviation (36.4-46.3) fL RDW Coeff of Sia (11.5-14.5) % Plt Count (130-400) K/uL MPV (7.4-10.4) fL Immature Gran % (Auto) % Neut % (Auto) % Lymph % (Auto) % Cataño % (Auto) % Eos % (Auto) % Baso % (Auto) % Neut # (Auto) (1.4-6.5) K/uL Lymph # (Auto) (1.2-3.4) K/uL Cataño # (Auto) (0.11-0.59) K/uL Eos # (Auto) (0-0.5) K/uL Baso # (Auto) (0-0.2) K/uL Immature Gran # (Auto) (0.00-0.02) K/uL Polychromasia Hypochromasia Basophilic Stippling Anisocytosis PT (9.0-12.0) Seconds INR (0.9-1.1) APTT (21.0-31.0) Seconds PTT Ratio VBG pH (7.36-7.41) VBG pCO2 (38-50) mmHg VBG pO2 mmHg VBG HCO3 mmol/L VBG O2 Saturation % VBG Base Excess mEq/L Barometric Pressure mm/Hg Sodium 135 L (136-145) mmol/L Potassium 4.0 (3.5-5.1) mmol/L Chloride 94 L (98-107) mmol/L Carbon Dioxide 36 H (21-32) mmol/L Anion Gap 5.0 (3-11) BUN 30 H (7-18) mg/dl Creatinine 0.98 (0.6-1.2) mg/dl Est Cr Clr Drug Dosing 42.0 ml/min Est GFR ( Amer) 59.3 ml/min Est GFR (Non-Af Amer) 51.1 ml/min BUN/Creatinine Ratio 30.2 H (10-20) Glucose 134 H (70-99) mg/dl Lactate 3.3 H* (0.4-2.0) mmol/L Calcium 8.9 (8.5-10.1) mg/dl Magnesium 2.0 (1.8-2.4) mg/dl Troponin I 0.107 H* (0-0.045) ng/ml NT-Pro-B Natriuret Pep 85118 H (0-1800) pg/ml Lipase 65 L (73-393) U/L Imaging Data Radiologist's Impression: Chest X-Ray 12/12/20 18:00 XR chest 1V portable CLINICAL HISTORY: Chest Pain COMPARISON STUDY: November 27, 2020 FINDINGS: No definite pneumothorax seen however evaluation is limited because bilateral lung apices are partially obscured by patient's chin.. Redemonstration of the moderate left pleural effusion associated with atelectasis/infiltrate at the left base. Interval development of mild blunting of the right costophrenic angle which could represent small right pleural effusion. Reticular opacities are again seen at the right lower in the left midlung. Diffuse prominence of pulmonary interstitium is slightly improved since prior. Cardiomediastinal silhouette silhouette is mildly enlarged and stable since prior. Aorta is calcified. Midline sternotomy wires and prosthetic likely aortic valve and mitral ring are seen. Study is limited due to mild rotation. Pulmonary vasculature is obscured.. Osseous structures: Osteopenia. Degenerative changes of the spine. Stable position of left-sided chest single-lead pacemaker. IMPRESSION: 1. Bilateral pleural effusion, stable on the left and new on the right. 2. Atelectasis infiltrate at the left base. Also linear densities at the right lower and mid left lungs could represent atelectasis/scarring or pneumonia. 3. Stable cardiomegaly. Possible pulmonary edema. ACT 112: Negative or not required by law. The above report was generated using voice recognition software. It may contain grammatical, syntax or spelling errors. Electronically signed by: Pavithra Brewer DO 12/12/2020 6:57 PM ECG Data Interpretation: Paced rhythm with a rate of 62. QRS [address] elevation or ST depression. [facility] Narrative 1758: The patient was evaluated in room B4. A complete history and physical exam was performed Cardiac monitoring: An order was placed for continuous cardiac monitoring. The monitor shows a rate of 60 with paced rhythm Patient was found to be hypoxic on her home 2 L with an oxygen saturation 80s. Patient's oxygen was bumped up to 4 L via nasal cannula which improved her oxy gen saturation. The patient was found to be hypotensive with a manual and automatic blood pressure reading in the systolic 90s and diastolic in the 50s. The patient does have a long history of CHF and is thought that she is in CHF exacerbation given her hypoxia, rales at the bases, and pitting edema, however we will attempt to give her a small 250 cc normal saline bolus to improve her blood pressure. EMR reviewed. Patient has a long history of hypoxia pulmonary artery hypertension, hypertension, and congestive heart failure. Patient has her her aortic valve replaced. Patient is on Coumadin for atrial fibrillation. Patient has a pacemaker placed. Patient was recently admitted to the hospital from December 05, 2020 to December 09, 2020, she was discharged 3 days ago. Per the discharge summary, the patient was switched from her Lasix 60 mg p.o. twice daily to Bumex 1 mg p.o. daily and was increased to Bumex twice daily. Patient was discharged on 3 L of nasal cannula oxygen. When the patient presented to the hospital during her last admission her weight was 86 kg. When she was discharged after diuresis her weight was 83 kg. Per the EMR, the patient was a DNR/DNI, this was filled out by Dr. Юлия WOLF. 1849: Blood pressure status post 250 cc normal saline bolus 100/50 manually. 191: Vital signs stable. No more fluids given at this time. Patient has a white blood cell count 14.65. Patient has not had a white blood cell count this high on previous admission. Patient's lactic acid above 3. Chest x-ray does show bilateral pleural effusions stable on the left and new on the right. There is atelectasis and infiltrate at the left base and densities in the right mid left lung which could represent atelectasis or pneumonia. There is stable cardiomegaly and mild pulmonary edema. Given the patient's long history of CHF, judicious fluids will be given and will not be given 30 cc/kg bolus at this time. We will hold off on additional boluses of fluid as long as patient's systolic blood pressure remains above 100. Antibiotics cefepime and vancomycin ordered for the patient for possible pneumonia. Urinalysis also ordered for the patient. COVID-19 swab will be ordered for the patient. Patient's troponin is elevated at 0.107 and her proBNP is elevated 16,526, the patient is now reporting chest pain is thought that the troponin elevation could be due to CHF. INR subtherapeutic at 1.7. We will plan on admitting the patient to the [facility] hospitalist team Dr. Dalton will be notified. Impression & Plan Sepsis, CHF (congestive heart failure), Pneumonia Critical Care Time Critical Care Time: Yes Total Critical Care Time: 76 I have personally spent greater than 76 minutes of critical care time in the dir ect management of this patient. This includes bedside care, interpretation of diagnostic studies, and testing, discussion with consultants, patient, and family members, and other required patient management activities. This 76 minutes is in excess of all separately billable procedures. Discharge Plan Visit Data Chief Complaint: Respiratory Problems Stated Complaint: LOW PULSE OX ED Provider: Flakito Bro Discharge Problem: Sepsis, CHF (congestive heart failure), Pneumonia Patient Disposition: Admitted As Inpatient Forms Stand Alone Forms: My [facility] Prescriptions Prescriptions: No Action Centrum Silver Women 8 mg iron-400 mcg-300 mcg Tablet 1 tab PO DAILY Qty: 0 RF: 0 metoprolol tartrate 100 mg Tablet 100 mg PO BID Qty: 0 RF: 0 lorazepam [Ativan] 0.5 mg Tablet 0.5 mg PO BID PRN (Reason: Anxiety) Qty: 0 RF: 0 (DME) Oxygen Home Liters Per Minute 2 liters NA HS Qty: 0 RF: 0 dorzolamide-timolol [Cosopt] 22.3-6.8 mg/mL drops 1 drp OPB BID RF: 0 hydrocortisone 2.5 % cream 1 applic TOPICAL BID PRN (Reason: Skin Irritation) RF: 0 eplerenone 25 mg tablet 25 mg PO DAILY RF: 0 loperamide 2 mg Capsule 2 mg PO Q6H PRN (Reason: Diarrhea) RF: 0 Restasis 0.05 % dropperette 1 drp OPB BID RF: 0 netarsudil 0.02 % Drops 1 drp OPB PM RF: 0 bumetanide 1 mg tablet See Rx Instructions .ROUTE .COMPLEX RF: 0 acetaminophen 325 mg Tablet 650 mg PO Q4H MDD 3 GRAMS/24 HOURS PRN (Reason: Pain) RF: 0 Lactobacillus acidoph-L.bulgar [Floranex] 1 million cell Tablet 2 tab PO BID RF: 0 potassium chloride [Klor-Con M20] 20 mEq tablet,ER particles/crystals 40 meq PO BID RF: 0 losartan 50 mg tablet 25 mg PO BID RF: 0 calcium carbonate [Tums] 300 mg (750 mg) Tablet,Chewable 600 mg PO DAILY RF: 0 warfarin 3 mg Tablet See Rx Instructions .ROUTE .COMPLEX RF: 0 levothyroxine 100 mcg Tablet 100 mcg PO DAILYBB RF: 0 Preparation H 0.25-14-74.9 % Ointment 1 applic [place] AMHS PRN (Reason: Hemorrhoids) RF: 0 aspirin 81 mg Tablet,Chewable 81 mg PO DAILY RF: 0 trolamine salicylate 10 % Cream 1 applic TOPICAL TID PRN (Reason: Pain) RF: 0 Heri Protect Cream 1 applic TOPICAL DAILY RF: 0 melatonin 5 mg Tablet 5 mg PO HS RF: 0 Slow Mag 64mg 64 mg PO TID RF: 0 pantoprazole 40 mg tablet,delayed release (DR/EC) 40 mg PO BID RF: 0 simethicone [Mi-Acid Gas Relief(simethicon)] 80 mg Tablet,Chewable 80 mg PO Q6H PRN (Reason: gas pains) Qty: 30 RF: 0 [facility] [Primary Care Provider] - Discharge Problem: Sepsis Qualifiers: Sepsis type: sepsis due to unspecified organism Sepsis acute organ dysfunction status: unspecified Qualified Code(s): A41.9 - Sepsis, unspecified organism CHF (congestive heart failure) Qualifiers: Heart failure type: unspecified Heart failure chronicity: acute on chronic Qualified Code(s): I50.9 - Heart failure, unspecified Pneumonia Qualifiers: Pneumonia type: due to unspecified organism Laterality: unspecified laterality Lung location: unspecified part of lung Qualified Code(s): J18.9 - Pneumonia, unspecified organism
[2020-12-12 18:30] LABS: Hematocrit (blood only) 34.1 % (37-47); Hemoglobin 10.3 g/dL (12.0-16.0); Mean Corpuscular Hemoglobin 26.4 pg (25-34); Mean Corpuscular Hgb Conc 30.2 g/dL (32-36); Mean Corpuscular Volume 87.4 fL (80-100); Mean Platelet Volume 9.7 fL (7.4-10.4); Platelet Count 122 K/uL (130-400); RDW Coefficient of Variation 21.1 % (11.5-14.5); RDW Standard Deviation 66.7 fL (36.4-46.3); White Blood Count 14.65 K/uL (4.8-10.8)
[2020-12-12 18:33] LABS: Base Excess VBG 10.9 mEq/L; HCO3 VBG 39 mmol/L; PCO2 VBG 76 mmHg (38-50); PO2 VBG 22 mmHg; pH VBG 7.33 (7.36-7.41)
[2020-12-12 18:34] LABS: Oxygen Saturation VBG < 60.0 %
[2020-12-12 18:41] LABS: INR 1.7 (0.9-1.1); Partial Thromboplastin Ratio 1.1; Partial Thromboplastin Time 30.2 Seconds (21.0-31.0); Prothrombin Time 16.7 Seconds (9.0-12.0)
[2020-12-12 18:46] LABS: BUN Creatinine Ratio 30.2 (10-20); Calcium 8.9 mg/dl (8.5-10.1); Est GFR (African American) 59.3 ml/min; Est GFR (Non-African American) 51.1 ml/min
[2020-12-12 18:48] LABS: Anisocytosis Present; Basophilic Stippling 1+; Basophils # (auto) 0.01 K/uL (0-0.2); Basophils % (auto) 0.1 %; Eosinophils # (auto) 0.01 K/uL (0-0.5); Eosinophils % (auto) 0.1 %; Hypochromasia Present; Immature Granulocytes # (auto) 0.04 K/uL (0.00-0.02); Immature Granulocytes % (auto) 0.3 %; Lymphocytes # (auto) 0.92 K/uL (1.2-3.4); Lymphocytes % (auto) 6.3 %; Monocytes # (auto) 0.49 K/uL (0.11-0.59); Monocytes % (auto) 3.3 %; Neutrophils # (auto) 13.18 K/uL (1.4-6.5); Neutrophils % (auto) 89.9 %; Polychromasia 1+
[2020-12-12] MEDS ORDERED: VANCOMYCIN CONSULT ACTIVE PRN ×2 (18:53→22:35)
[2020-12-12] MEDS ORDERED: VANCOMYCIN HCL 1,750 MG in SODIUM CHLORIDE 0.9% 500 ML IV ONE (18:53)
[2020-12-12] MEDS ORDERED: CEFEPIME 2,000 MG/20 ML VIAL IV STA (18:53)
--- NOTE | 2020-12-12 18:58 | XRay Report ---
XR chest 1V portable CLINICAL HISTORY: Chest Pain COMPARISON STUDY: November 27, 2020 FINDINGS: No definite pneumothorax seen however evaluation is limited because bilateral lung apices are partial ly obscured by patient's chin.. Redemonstration of the moderate left pleural effusion associated with atelectasis/infiltrate at the l eft base. Interval development of mild blunting of the right costophrenic angle which could represent small rig ht pleural effusion. Reticular opacities are again seen at the right lower in the left midlung. Diffuse prominence of pulm onary interstitium is slightly improved since prior. Cardiomediastinal silhouette silhouette is mildly enlarged and stable since prior. Aorta is calcified . Midline sternotomy wires and prosthetic likely aortic valve and mitral ring are seen. Study is limited due to mild rotation. Pulmonary vasculature is obscured.. Osseous structures: Osteopenia. Degenerative changes of the spine. Stable position of left-sided chest single-lead pacemaker. IMPRESSION: 1. Bilateral pleural effusion, stable on the left and new on the right. 2. Atelectasis infiltrate at the left base. Also linear densities at the right lower and mid left keeley ngs could represent atelectasis/scarring or pneumonia. 3. Stable cardiomegaly. Possible pulmonary edema. ACT 112: Negative or not required by law. The above report was generated using voice recognition software. It may contain grammatical, syntax o r spelling errors. Electronically signed by: Pavithra Brewer DO 12/12/2020 6:57 PM
[2020-12-12 18:59] LABS: Troponin I 0.107 ng/ml (0-0.045)
[2020-12-12 19:28] LABS: Appearance Urine Clear (Clear); Bacteria Urine Automated Negative (Negative); Bilirubin Urine Negative (Negative); Blood Urine Negative (Negative); Color Urine Yellow; Epithelial Cell Urine Auto >30 /lpf (0-5); Glucose Urine UA Negative (Negative); Ketones Urine Negative (Negative); Leukocyte Esterase Urine 1+ (Negative); Nitrite Urine Negative (Negative); Protein Urine Negative (Negative); RBC Urine Automated 0-4 /hpf (0-4); Specific Gravity Urine 1.011 (1.000-1.030); Urobilinogen Urine Negative (Negative)
--- NOTE | 2020-12-12 20:27 | History & Physical Report ---
Date of Service December 12, 2020 Assessment & Plan (1) Hypoxia: Patient with saturation of 84% on her normal 2L O2 per review of NH notes. Most likely secondary to pleural effusion and pulmonary edema in setting of suspected CHF exacerbation. CXR with possible PNA as well - patient does not endorse cough, sputum, fevers/chills. -Supplemental O2 as needed to maintain SpO2 > 94% -Bumex 1mg IV BID -Incentive spirometry as tolerated Present on Admission?: Yes (2) Aortic valve replaced: Patient with mechanical aortic valve in place. Subtherapeutic INR of 1.7 today. -Will bridge with Lovenox 1mg/kg -Give Coumadin 5mg dose tonight -Resume daily Coumadin -Monitor INR daily Present on Admission?: Yes (3) HTN (hypertension): Blood pressure borderline low at this time -Hold antihypertensive agents -Continue to monitor Present on Admission?: Yes (4) CHF (congestive heart failure): Suspect volume overload. Patient with elevated BNP and Troponin as well as LE and sacral edema, JVD, new pleural effusion and rales on pulmonary exam. -Bumex 1mg IV now and BID -Monitor I/Os -Monitor daily weights -Will hold additional CHF medications at this time given borderline low BP Present on Admission?: Yes (5) Leukocytosis: Patient with neutrophil predominant leukocytosis, elevated neutrophil/lymphocyte. Afebrile. BP is borderline low. Lactate elevated at 3.3, improved with small fluid bolus of 250mL. Source unclear - patient does not endorse symptoms of fever/chills/rigors, no cough or dysuria, no rash. She does endorse bilateral groin pain and lower abdominal pain with occasional diarrhea. Has history of diverticulitis. -Check C. diff -Check procalcitonin -Check CT abdomen to assess for diverticulitis -Patient received Vancomycin and Cefepime in ER - will continue for now Present on Admission?: Yes (6) Atrial fibrillation: V paced -Holding Metoprolol given borderline low blood pressure -Lovenox bridging for subtherapeutic INR and mechanical aortic valve -Coumadin 5mg tonight then resume daily dosing Present on Admission?: Yes (7) Abdominal pain: Lower abdominal and groin pain -Checking CT abdomen -Empiric Vanc/Cefepime for now F/E/N - Bumex, monitor electrolytes, PO as toleratd Ppx - On coumadin, Lovenox Code - Full Dispo - Admit to PCU Present on Admission?: Yes History of Present Illness Chief Complaint: SOB Primary Care Provider: [facility] [employer] Clarisse Mo is an 89yo C female with history of mechanical aortic valve, diastolic CHF, HTN. Patient resides at [facility]. She was recently admitted to [facility] from 12/05 - 12/09 with suspected CHF exacerbation for which she was diuresed. Patient had been doing well since returning home. She returns today with complaint of ongoing shortness of breath, worsening edema. Per record review, saturations on 2L NC were 84% at [facility] and her blood pressure was 90/50. Patient states that her legs feel a little more swollen. She reports feeling anxious and breathless at times - feels that she works herself up at times. She denies chest pain, palpitations, cough, wheezing, sputum production. She is short of breath at baseline and does not feel that this is worse. She denies fevers/chills/dysuria/vomiting/nausea She states that she has bowel movements immediately following PO intake as well as fecal incontinence at times and has diarrhea on occasion. Patient afebrile, HD stabl ein ER. Saturating >94% on 4L NC ER Course: Cefepime 2gm, Vancomycin 1750, ASA 324, NSS x 250 Allergies Allergy/AdvReac Type Severity Reaction Status Date / Time Sulfa (Sulfonamide Allergy Intermediate HIVES Verified 12/12/20 18:43 Antibiotics) Home Medications Medication Instructions Recorded Confirmed Type Centrum Silver Women 1 tab PO DAILY #0 07/31/13 12/12/20 History Oxygen Home #0 09/10/13 11/05/20 History lorazepam [Ativan] 0.5 mg PO BID PRN #0 tab 09/10/13 12/12/20 History metoprolol tartrate 100 mg PO BID #0 tab 09/10/13 12/12/20 History dorzolamide-timolol [Cosopt] 1 drp OPB BID 08/12/19 12/12/20 History Restasis 1 drp OPB BID 09/18/20 12/12/20 History eplerenone 25 mg PO DAILY 09/18/20 12/12/20 History hydrocortisone 1 applic TOPICAL BID PRN 09/18/20 12/12/20 History loperamide 2 mg PO Q6H PRN 09/18/20 12/12/20 History Lactobacillus acidoph-L.bulgar 2 tab PO BID 11/05/20 12/12/20 History [Floranex] acetaminophen 650 mg PO Q4H PRN MDD 3 GRAMS/24 11/05/20 12/12/20 History HOURS potassium chloride [Klor-Con M20] 40 meq PO BID 11/05/20 12/12/20 History Preparation H 1 applic ME [facility] PRN 11/07/20 12/12/20 History calcium carbonate [Tums] 600 mg PO DAILY 11/07/20 12/12/20 History levothyroxine 100 mcg PO DAILYBB 11/07/20 12/12/20 History losartan 25 mg PO BID 11/07/20 12/12/20 History warfarin See Rx Instructions .ROUTE .COMPLEX 11/07/20 12/12/20 History Heri Protect 1 applic TOPICAL DAILY 12/05/20 12/12/20 History Slow Mag 64mg 64 mg PO TID 12/05/20 12/12/20 History aspirin 81 mg PO DAILY 12/05/20 12/12/20 History melatonin 5 mg PO HS 12/05/20 12/12/20 History pantoprazole 40 mg PO BID 12/05/20 12/12/20 History trolamine salicylate 1 applic TOPICAL TID PRN 12/05/20 12/12/20 History simethicone [Mi-Acid Gas 80 mg PO Q6H PRN #30 tab 12/09/20 12/12/20 Rx Relief(simethicon)] bumetanide See Rx Instructions .ROUTE .COMPLEX 12/12/20 12/12/20 History netarsudil 1 drp OPB PM 12/12/20 12/12/20 History Past Med/Surg History Medical History Acute diverticulitis Acute hyponatremia Acute hyponatremia Acute on chronic diastolic (congestive) heart failure RV dysfunction Acute onset of severe vertigo (07/31/13) Acute urinary retention Anemia Atrial fibrillation CHF (congestive heart failure) Cholecystitis Choledocholithiasis Dizziness Elevated troponin HTN (hypertension) Hyponatremia Pacemaker Pulmonary hypertension Thickened endometrium Thyroid disease Vertigo Surgical History Aortic valve replaced no further details provided from facility record History of colonoscopy History of heart valve replacement 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 Status post Mohs surgery Status post placement of cardiac pacemaker no further details provided from facility record Family History Brother Cancer Sister Cancer Social History Smoking Status: Never smoker Tobacco Type: Cigarettes Second Hand Exposure: No; Hx Alcohol Use: No Hx Substance Use: No Preferred Language: [place] Communication Ability: Effective Tax Record Clerk Required: No Beliefs That Will Affect Care: None marital status: / Current Living Situation: Personal Care Facility Current Living Situation Comment: [facility] How many Children do You have: 2 Feels Safe at Home: Yes Assistive Devices: Glasses, Oxygen - Continuous and Walker Review of Systems Review of Systems: All systems reviewed & are unremarkable except as noted in HPI & below Physical Exam Physical Exam: General: patient resting comfortably, NAD, non-toxic in appearance, AA&O x 4 Skin: warm, dry, intact, chronic venous changes of bilateral LE HEENT: NC/AT, PERRL, EOMI, anicteric sclera, conjunctiva without injection, external ear normal to inspection and nontender, nares patent, moist mucus membranes, dentition intact, no oropharyngeal lesions, neck supple, trachea midline, no LAD, no thyromegaly, +JVD to angle of jaw appreciated on right Heart: +S1/S2, regular, no m/r/g, mechanical click Lungs: diminished breath sounds right hemithorax, +crackles in left base to mid-lung Abd: +BS, soft, mildly distended, tympanic, tender to palpation in lower abdomen, no rebound/guarding/peritoneal signs, no masses/organomegaly/ascites Ext: warm, 2+ pulses in UE/LE bilaterally, +edema of bilateral LE 3+, R>L, RLE warm to touch, +Sacral edema and abdominal wall edema Neuro: nonfocal, patient AA&O x 4, speech intact, no facial droop, moving all extremities on command with equal strength 5/5 Results & Data Results & Data ([facility]) Vital Signs (Past 12 Hours) Vital Signs Temp Pulse Pulse Resp BP BP Pulse Ox 12/12/20 20:00 60 18 111/44 L 98 12/12/20 19:13 64 20 116/50 L 98 12/12/20 18:50 60 16 106/47 L 100 12/12/20 18:39 60 100/50 L 12/12/20 17:56 37.7 C H 87 16 91/52 L 94 Laboratory Results Laboratory Results WBC 14.65 K/uL (4.8-10.8) H 12/12/20 18:19 RBC 3.90 M/uL (4.2-5.4) L 12/12/20 18:19 Hgb 10.3 g/dL (12.0-16.0) L 12/12/20 18:19 Hct 34.1 % (37-47) L 12/12/20 18:19 MCV 87.4 fL (80-100) 12/12/20 18:19 MCH 26.4 pg (25-34) 12/12/20 18:19 MCHC 30.2 g/dL (32-36) L 12/12/20 18:19 RDW Std Deviation 66.7 fL (36.4-46.3) H 12/12/20 18:19 RDW Coeff of Sia 21.1 % (11.5-14.5) H 12/12/20 18:19 Plt Count 122 K/uL (130-400) L 12/12/20 18:19 MPV 9.7 fL (7.4-10.4) 12/12/20 18:19 Immature Gran % (Auto) 0.3 % 12/12/20 18:19 Neut % (Auto) 89.9 % 12/12/20 18:19 Lymph % (Auto) 6.3 % 12/12/20 18:19 Mckinley % (Auto) 3.3 % 12/12/20 18:19 Eos % (Auto) 0.1 % 12/12/20 18:19 Baso % (Auto) 0.1 % 12/12/20 18:19 Neut # (Auto) 13.18 K/uL (1.4-6.5) H 12/12/20 18:19 Lymph # (Auto) 0.92 K/uL (1.2-3.4) L 12/12/20 18:19 Mckinley # (Auto) 0.49 K/uL (0.11-0.59) 12/12/20 18:19 Eos # (Auto) 0.01 K/uL (0-0.5) 12/12/20 18:19 Baso # (Auto) 0.01 K/uL (0-0.2) 12/12/20 18:19 Immature Gran # (Auto) 0.04 K/uL (0.00-0.02) H 12/12/20 18:19 Polychromasia 1+ 12/12/20 18:19 Hypochromasia Present 12/12/20 18:19 Basophilic Stippling 1+ 12/12/20 18:19 Anisocytosis Present 12/12/20 18:19 PT 16.7 Seconds (9.0-12.0) H 12/12/20 18:19 INR 1.7 (0.9-1.1) H 12/12/20 18:19 APTT 30.2 Seconds (21.0-31.0) 12/12/20 18:19 PTT Ratio 1.1 12/12/20 18:19 VBG pH 7.33 (7.36-7.41) L 12/12/20 18:19 VBG pCO2 76 mmHg (38-50) H 12/12/20 18:19 VBG pO2 22 mmHg 12/12/20 18:19 VBG HCO3 39 mmol/L 12/12/20 18:19 VBG O2 Saturation < 60.0 % 12/12/20 18:19 VBG Base Excess 10.9 mEq/L 12/12/20 18:19 Barometric Pressure 730.4 mm/Hg 12/12/20 18:19 Sodium 135 mmol/L (136-145) L 12/12/20 18:19 Potassium 4.0 mmol/L (3.5-5.1) 12/12/20 18:19 Chloride 94 mmol/L (98-107) L 12/12/20 18:19 Carbon Dioxide 36 mmol/L (21-32) H 12/12/20 18:19 Anion Gap 5.0 (3-11) 12/12/20 18:19 BUN 30 mg/dl (7-18) H 12/12/20 18:19 Creatinine 0.98 mg/dl (0.6-1.2) 12/12/20 18:19 Est Cr Clr Drug Dosing 42.0 ml/min 12/12/20 18:19 Est GFR ( Amer) 59.3 ml/min 12/12/20 18:19 Est GFR (Non-Af Amer) 51.1 ml/min 12/12/20 18:19 BUN/Creatinine Ratio 30.2 (10-20) H 12/12/20 18:19 Glucose 134 mg/dl (70-99) H 12/12/20 18:19 Lactate 2.6 mmol/L (0.4-2.0) H* 12/12/20 20:11 Calcium 8.9 mg/dl (8.5-10.1) 12/12/20 18:19 Magnesium 2.0 mg/dl (1.8-2.4) 12/12/20 18:19 Troponin I 0.107 ng/ml (0-0.045) H* 12/12/20 18:19 NT-Pro-B Natriuret Pep 11970 pg/ml (0-1800) H 12/12/20 18:19 Lipase 65 U/L (73-393) L 12/12/20 18:19 Urine Color Yellow 12/12/20 17:10 Urine Appearance Clear (Clear) 12/12/20 17:10 Urine pH 5.0 (4.5-7.5) 12/12/20 17:10 Ur Specific [place] 1.011 (1.000-1.030) 12/12/20 17:10 Urine Protein Negative (Negative) 12/12/20 17:10 Urine Glucose (UA) Negative (Negative) 12/12/20 17:10 Urine Ketones Negative (Negative) 12/12/20 17:10 Urine Blood Negative (Negative) 12/12/20 17:10 Urine Nitrite Negative (Negative) 12/12/20 17:10 Urine Bilirubin Negative (Negative) 12/12/20 17:10 Urine Urobilinogen Negative (Negative) 12/12/20 17:10 Ur Leukocyte Esterase 1+ (Negative) H 12/12/20 17:10 Urine WBC (Auto) 10-30 /hpf (0-5) H 12/12/20 17:10 Urine RBC (Auto) 0-4 /hpf (0-4) 12/12/20 17:10 U Hyaline Cast (Auto) 5-10 /lpf (0-5) H 12/12/20 17:10 U Epithel Cells (Auto) >30 /lpf (0-5) H 12/12/20 17:10 Urine Bacteria (Auto) Negative (Negative) 12/12/20 17:10 COVID-19 Eval Order Covid19 at [facility] 12/12/20 19:38 Impressions Chest X-Ray 12/12/20 18:00 XR chest 1V portable CLINICAL HISTORY: Chest Pain COMPARISON STUDY: November 27, 2020 FINDINGS: No definite pneumothorax seen however evaluation is limited because bilateral lung apices are partially obscured by patient's chin.. Redemonstration of the moderate left pleural effusion associated with atelectasis/infiltrate at the left base. Interval development of mild blunting of the right costophrenic angle which could represent small right pleural effusion. Reticular opacities are again seen at the right lower in the left midlung. Diffuse prominence of pulmonary interstitium is slightly improved since prior. Cardiomediastinal silhouette silhouette is mildly enlarged and stable since prior. Aorta is calcified. Midline sternotomy wires and prosthetic likely aortic valve and mitral ring are seen. Study is limited due to mild rotation. Pulmonary vasculature is obscured.. Osseous structures: Osteopenia. Degenerative changes of the spine. Stable position of left-sided chest single-lead pacemaker. IMPRESSION: 1. Bilateral pleural effusion, stable on the left and new on the right. 2. Atelectasis infiltrate at the left base. Also linear densities at the right lower and mid left lungs could represent atelectasis/scarring or pneumonia. 3. Stable cardiomegaly. Possible pulmonary edema. ACT 112: Negative or not required by law. The above report was generated using voice recognition software. It may contain grammatical, syntax or spelling errors. Electronically signed by: Pavithra Brewer DO 12/12/2020 6:57 PM ECG Findings: + paced rhythm Change: no significant change PG Care Time/CCT Total # of Minutes Spent Total Time Spent with Patient: Total time spent is greater than 50% in coordination of care (as documented) at patient's floor/unit and/or counseling patient: Coding Level of Care Code 94681 Initial Inpt Care Lvl 3 Diagnoses Hypoxia R09.02 Aortic valve replaced Z95.2 HTN (hypertension) I10 Hypertension type: essential hypertension CHF (congestive heart failure) I50.9 Heart failure chronicity: acute on chronic Heart failure type: unspecified Leukocytosis D72.829 Leukocytosis type: unspecified Atrial fibrillation I48.91 Atrial fibrillation type: unspecified Abdominal pain R10.30 Abdominal location: lower abdomen, unspecified (1) HTN (hypertension) Hypertension type: essential hypertension Qualified Code(s): I10 - Essential (primary) hypertension (2) CHF (congestive heart failure) Heart failure chronicity: acute on chronic Heart failure type: unspecified Qualified Code(s): I50.9 - Heart failure, unspecified (3) Leukocytosis Leukocytosis type: unspecified Qualified Code(s): D72.829 - Elevated white blood cell count, unspecified (4) Atrial fibrillation Atrial fibrillation type: unspecified Qualified Code(s): I48.91 - Unspecified atrial fibrillation (5) Abdominal pain Abdominal location: lower abdomen, unspecified Qualified Code(s): R10.30 - Lower abdominal pain, unspecified
[2020-12-12 21:47] LABS: Albumin Level 2.7 gm/dl (3.4-5.0); Bilirubin Direct 0.5 mg/dl (0-0.2); Bilirubin,Total 0.9 mg/dl (0.2-1); Total Protein 6.8 gm/dl (6.4-8.2)
--- NOTE | 2020-12-12 21:52 | XRay Report ---
XR KUB/Abdomen 1 view CLINICAL HISTORY: abdominal pain and bloating COMPARISON STUDY: No previous studies for comparison. FINDINGS: Multiple and stool-filled loops of bowel are seen throughout the abdomen. Moderate stool burden is de monstrated. Paucity of gas is seen within lower pelvic region. Stent is seen projecting to the right upper quadrant. Heavy vascular calcifications are demonstrated. Osteopenia. Degenerative changes of the spine. IMPRESSION: 1. Constipation patent. 2. Atherosclerosis. ACT 112: Negative or not required by law. The above report was generated using voice recognition software. It may contain grammatical, syntax o r spelling errors. Electronically signed by: Pavithra Brewer DO 12/12/2020 9:51 PM
[2020-12-12] MEDS ORDERED: LORazepam 0.5 MG TAB PO PRN (22:35)
[2020-12-12] MEDS ORDERED: TROLAMINE SALICYLATE 10% CRM 255 APPLN/85 GM TUBE EXT PRN (22:35)
[2020-12-12] MEDS ORDERED: SIMETHICONE 80 MG CHEW PO PRN (22:35)
[2020-12-12] MEDS ORDERED: LOPERAMIDE HCL 2 MG CAP PO PRN (22:35)
[2020-12-12] MEDS ORDERED: ONDANSETRON INJ 2 MG/ML 2 ML VIAL IV PRN (22:35)
[2020-12-12] MEDS ORDERED: ACETAMINOPHEN 325 MG TAB PO PRN (22:35)
[2020-12-12] MEDS ORDERED: MELATONIN 3 MG TAB PO PRN (22:46)
[2020-12-12] MEDS ORDERED: BUMETANIDE 1 MG in SYRINGE 0 ML IV ONE (23:00)
[2020-12-12] MEDS ORDERED: ENOXAPARIN 80 MG/0.8 ML SYR SQ ONE (23:00)
[2020-12-12] MEDS ORDERED: WARFARIN SOD 5 MG TAB PO ONE (23:00)
[2020-12-12 23:07] LABS: Phosphorus 2.8 mg/dl (2.5-4.9)
[2020-12-12] MEDS: DORZOLAMIDE/TIMOLOL 22.3/6.8MG/ML 10 ML BTL OPB SCH (23:23)
[2020-12-12] MEDS: PANTOprazole 40 MG TAB PO SCH (23:25)
[2020-12-13] MEDS ORDERED: OPTIRAY 320 150ml IV ONE (02:40)
--- NOTE | 2020-12-13 04:29 | Pharmacy Report ---
Pharmacy Abx Initial Consult - Date of Service December 13, 2020 - Pharmacy Dosing Scope Date of Consult: 12/12/20 Consultation requested by: Dr. Brianda Dalton Pharmacy is consulted to continue IV Vancomycin dosing therapy, order appropriate labs and adjust drug dose/frequency. - Subjective The patient is a 89 year old F admitted on 12/12/20 20:22 from [facility] with complaints of shortness of breath/GI/Groin pain. She was recently admitted for heart failure and diuresed at this facility. Today she presents with SOB and edema again and BP of 90/50. She is started on both empiric doses of Cefepime and Vancomycin. - Objective Height: 5 ft 5 in Weight: 85.6 kg Vital Signs (Past 12hrs): Vital Signs Temp Pulse Pulse Pulse Resp BP BP 12/13/20 03:29 36.5 C 60 16 114/57 L 12/13/20 00:11 36.5 C 60 19 102/52 L 12/12/20 22:40 36.5 C 61 19 102/52 L 12/12/20 22:35 36.5 C 60 19 102/52 L 12/12/20 22:30 60 12/12/20 21:40 64 20 108/48 L 12/12/20 21:30 60 24 90/43 L 12/12/20 20:50 60 19 97/41 L 12/12/20 20:36 37.0 C 60 16 96/43 L 12/12/20 20:00 60 18 111/44 L 12/12/20 19:13 64 20 116/50 L 12/12/20 18:50 60 16 106/47 L 12/12/20 18:39 60 100/50 L 12/12/20 17:56 37.7 C H 87 16 91/52 L Pulse Ox Pulse Ox 12/13/20 03:29 98 12/13/20 00:11 95 12/12/20 22:40 95 12/12/20 22:35 94 94 12/12/20 22:30 12/12/20 21:40 96 12/12/20 21:30 99 12/12/20 20:50 98 12/12/20 20:36 98 12/12/20 20:00 98 12/12/20 19:13 98 12/12/20 18:50 100 12/12/20 18:39 12/12/20 17:56 94 Lab Results (24hrs): Laboratory Tests (24 Hours) 12/12/20 12/12/20 12/12/20 18:23 18:19 18:19 WBC 14.65 H Neut # (Auto) 13.18 H Creatinine 0.98 Est Cr Clr Drug Dosing 42.0 Procalcitonin 2.31 H Micro Results: 12/12/20 17:10 Urine Culture - Pending Urine,Straight Cath 12/12/20 18:34 Aerobic Blood Culture - Pending Blood Anaerobic Blood Culture - Pending 12/12/20 18:19 Aerobic Blood Culture - Pending Blood Anaerobic Blood Culture - Pending - Risk Factors for Resistance * Resident in a custodial or extended-care facility * Hospitalization for 48 hours or more within the past 90 days - Assessment & Plan Assessment 89 year old F with Sepsis, possible GI/urine or Pulmonary involvement Plan Vancomycin IV * Estimated PK Parameters: Vd 0.60 L/kg, Casimiro 0.039hr-1, t1/2 17.8 hr * Loading dose: 1750 mg (20 mg/kg) * Maintenance dose: 750mg IV (~9 mg/kg) every 12 hours * Goal trough level : 15-20 mcg/mL * Trough level not ordered at this time * Vancomycin dosing per AUC nomogram Pharmacy will continue to follow and will adjust dose/frequency as necessary. Thank you.
[2020-12-13] MEDS ORDERED: metroNIDAZOLE 500 MG/100 ML BAG IV SCH (05:30)
[2020-12-13 06:15] LABS: Basophils # (auto) 0.01 K/uL (0-0.2); Basophils % (auto) 0.1 %; Hematocrit (blood only) 32.8 % (37-47); Immature Granulocytes # (auto) 0.03 K/uL (0.00-0.02); Immature Granulocytes % (auto) 0.2 %; Lymphocytes # (auto) 1.14 K/uL (1.2-3.4); Lymphocytes % (auto) 6.8 %; Mean Corpuscular Hemoglobin 26.9 pg (25-34); Mean Corpuscular Hgb Conc 30.5 g/dL (32-36); Mean Corpuscular Volume 88.2 fL (80-100); Mean Platelet Volume 9.9 fL (7.4-10.4); Monocytes # (auto) 0.58 K/uL (0.11-0.59); Monocytes % (auto) 3.4 %; Neutrophils # (auto) 15.06 K/uL (1.4-6.5); Neutrophils % (auto) 89.5 %; Platelet Count 116 K/uL (130-400); RDW Coefficient of Variation 21.4 % (11.5-14.5); RDW Standard Deviation 68.4 fL (36.4-46.3); Red Blood Count 3.72 M/uL (4.2-5.4); White Blood Count 16.82 K/uL (4.8-10.8)
[2020-12-13] MEDS ORDERED: LEVOTHYROXINE SODIUM 100 MCG TABLET PO SCH (06:30)
[2020-12-13 06:33] LABS: INR 1.9 (0.9-1.1); Prothrombin Time 18.2 Seconds (9.0-12.0)
[2020-12-13 06:39] LABS: Anisocytosis Present; Basophilic Stippling 1+; Hypochromasia Present
[2020-12-13 06:48] LABS: BUN Creatinine Ratio 32.3 (10-20); Calcium 9.2 mg/dl (8.5-10.1); Creatinine Clr Calc Pharmacy 47.3 ml/min; Est GFR (African American) 67.5 ml/min; Est GFR (Non-African American) 58.3 ml/min; Potassium 3.9 mmol/L (3.5-5.1)
--- NOTE | 2020-12-13 07:09 | Surgery Consultation ---
Date of Consultation December 13, 2020 Assessment & Plan (1) Pneumoperitoneum: I discussed the case with Dr. Brianda Dalton that I would review the CT scan with our radiologist this morning but at this time I would recommend that we could GI to see you the patient to enlighten us more on etiologies of the especially cylindrical stent this appears to be in the sigmoid colon By CAT scan not sure if the biliary stent may be the cause of the problem that may be eroding through the duodenum since he does have some fluid in epigastric area and whether or not this is the case and may be removed endoscopically after an opening and duodenum is identified and may be able to be closed endoscopical ly The patient would not tolerate an open procedure and will discuss the situation further once the GI evaluation has been completed I was able to review the CAT scan with the radiologist this morning which felt that the most likely site of perforation is in the sigmoid colon adjacent to the stent and whether or not this is contributing to the perforation. I was able to reexamine the patient at 1150 this morning where she appeared a little bit more obtunded and abdominal exam virtually unchanged I reviewed the note from the GI concerning the stent and free air I spoke with the medical service and what ever the reason for the free air or whether it is a spontaneous diverticular perforation with and without the aid of the stent is concerning we will obviously avoid surgery but it may be an issue that should arise if the condition worsens and the patient is a poor candidate for any surgical undertaking I will try to get a hold of the family in anticipation for the possible events that may have unfold in the future should the patient continued to deteriorate At 1210 today I was able to discuss the situation with her son Atul and he likewise feels the patient would not tolerate any surgery we would continue treatment nonoperatively and keep him posted on any new development All questions were answered History of Present Illness Reason for Consultation: Pneumoperitoneum Requesting Physician: Dr. Sha Lamar Attending Physician: Brianda Dalton, DO History of Present Illness This very pleasant 89-year-old female coherent with very little physiological reserve came in last evening with shortness of breath CT scan of the abdomen was obtained which showed a pneumoperitoneum CT scan was read by the [facility] I reviewed the CAT scan it was hard to appreciate the volume of the pneumoperitoneum The patient has had multiple biliary stents for choledocholithiasis by CAT scan reviewing the most recent 1 in the one from before at least one of the stents have migrated out of the biliary tree may be embedded into the duodenum whether or not this may be the site of the perforation patient also has another stent what appears to be in the sigmoid colon different characteristic and cylindrical in shape at this time I am not sure the etiology for the purpose of the stent The patient was sleeping when I went to examine her she was relatively comfortable but she was stating she has some nausea some abdominal pain that started approximately 24 to 48 hours ago Allergies Allergy/AdvReac Type Severity Reaction Status Date / Time Sulfa (Sulfonamide Allergy Intermediate HIVES Verified 12/12/20 18:43 Antibiotics) Home Medications Medication Instructions Recorded Confirmed Type Centrum Silver Women 1 tab PO DAILY #0 07/31/13 12/12/20 History Oxygen Home #0 09/10/13 11/05/20 History lorazepam [Ativan] 0.5 mg PO BID PRN #0 tab 09/10/13 12/12/20 History metoprolol tartrate 100 mg PO BID #0 tab 09/10/13 12/12/20 History dorzolamide-timolol [Cosopt] 1 drp OPB BID 08/12/19 12/12/20 History Restasis 1 drp OPB BID 09/18/20 12/12/20 History eplerenone 25 mg PO DAILY 09/18/20 12/12/20 History hydrocortisone 1 applic TOPICAL BID PRN 09/18/20 12/12/20 History loperamide 2 mg PO Q6H PRN 09/18/20 12/12/20 History Lactobacillus acidoph-L.bulgar 2 tab PO BID 11/05/20 12/12/20 History [Floranex] acetaminophen 650 mg PO Q4H PRN MDD 3 GRAMS/24 11/05/20 12/12/20 History HOURS potassium chloride [Klor-Con M20] 40 meq PO BID 11/05/20 12/12/20 History Preparation H 1 applic DC [facility] PRN 11/07/20 12/12/20 History calcium carbonate [Tums] 600 mg PO DAILY 11/07/20 12/12/20 History levothyroxine 100 mcg PO DAILYBB 11/07/20 12/12/20 History losartan 25 mg PO BID 11/07/20 12/12/20 History warfarin See Rx Instructions .ROUTE .COMPLEX 11/07/20 12/12/20 History Heri Protect 1 applic TOPICAL DAILY 12/05/20 12/12/20 History Slow Mag 64mg 64 mg PO TID 12/05/20 12/12/20 History aspirin 81 mg PO DAILY 12/05/20 12/12/20 History melatonin 5 mg PO HS 12/05/20 12/12/20 History pantoprazole 40 mg PO BID 12/05/20 12/12/20 History trolamine salicylate 1 applic TOPICAL TID PRN 12/05/20 12/12/20 History simethicone [Mi-Acid Gas 80 mg PO Q6H PRN #30 tab 12/09/20 12/12/20 Rx Relief(simethicon)] bumetanide See Rx Instructions .ROUTE .COMPLEX 12/12/20 12/12/20 History netarsudil 1 drp OPB PM 12/12/20 12/12/20 History Patient History Medical History Acute diverticulitis Acute hyponatremia Acute hyponatremia Acute on chronic diastolic (congestive) heart failure RV dysfunction Acute onset of severe vertigo (07/31/13) Acute urinary retention Anemia Atrial fibrillation CHF (congestive heart failure) Cholecystitis Choledocholithiasis Dizziness Elevated troponin HTN (hypertension) Hyponatremia Pacemaker Pulmonary hypertension Thickened endometrium Thyroid disease Vertigo Surgical History Aortic valve replaced no further details provided from facility record History of colonoscopy History of heart valve replacement 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 Status post Mohs surgery Status post placement of cardiac pacemaker no further details provided from facility record Family History Brother Cancer Sister Cancer Social History Smoking Status: Never smoker Tobacco Type: Cigarettes Second Hand Exposure: No; Hx Alcohol Use: No Hx Substance Use: No Preferred Language: Somali Communication Ability: Effective 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 Beliefs That Will Affect Care: None marital status: / Current Living Situation: Personal Care Facility Current Living Situation Comment: [facility] How many Children do You have: 2 Feels Safe at Home: Yes Assistive Devices: Denture - Upper, Denture - Lower, Glasses and Oxygen - Continuous Physical Exam Physical Exam: Patient was asleep when I walked in procedures she was on oxygen Once awakened she was alert and coherent The abdominal findings show some right lower quadrant guarding but no generalized tenderness Results & Data ([facility]) Vital Signs (Past 12 Hours) Vital Signs Temp Pulse Pulse Resp BP BP Pulse Ox 12/13/20 03:29 36.5 C 60 16 114/57 L 98 12/13/20 00:11 36.5 C 60 19 102/52 L 95 12/12/20 22:40 36.5 C 61 19 102/52 L 95 12/12/20 22:35 36.5 C 60 19 102/52 L 94 12/12/20 22:30 60 12/12/20 21:40 64 20 108/48 L 96 12/12/20 21:30 60 24 90/43 L 99 12/12/20 20:50 60 19 97/41 L 98 12/12/20 20:36 37.0 C 60 16 96/43 L 98 12/12/20 20:00 60 18 111/44 L 98 12/12/20 19:13 64 20 116/50 L 98 Pulse Ox 12/13/20 03:29 12/13/20 00:11 12/12/20 22:40 12/12/20 22:35 94 12/12/20 22:30 12/12/20 21:40 12/12/20 21:30 12/12/20 20:50 12/12/20 20:36 12/12/20 20:00 12/12/20 19:13 PG Care Time/CCT Total # of Minutes Spent Total Time Spent with Patient: Total time spent is greater than 50% in coordination of care (as documented) at patient's floor/unit and/or counseling patient: Coding Level of Care Code 80048 Inpt Consult Level 3 Diagnoses Pneumoperitoneum K66.8
--- NOTE | 2020-12-13 07:35 | Electrocardiogram Report ---
Test Reason : Blood Pressure : / mmHG Vent. Rate : 062 BPM Atrial Rate : 041 BPM P-R Int : 000 ms QRS Dur : 194 ms QT Int : 470 ms P-R-T Axes : 000 -69 105 degrees QTc Int : 477 ms Ventricular-paced rhythm Abnormal ECG When compared with ECG of 05-DEC-2020 05:49, No significant change was found Confirmed by Lennox Mccarthy ([id number]) on 12/13/2020 7:35:23 AM Referred By: [facility] Confirmed By:Lennox Mccarthy
[2020-12-13] MEDS ORDERED: CEFEPIME 2,000 MG in SYRINGE 0 ML IV SCH (08:00)
--- NOTE | 2020-12-13 08:24 | Hospitalist Progress Note ---
Date of Service December 13, 2020 Assessment & Plan (1) Hypoxia: acute respiratory failure with hypoxia, Patient with saturation of 84% on her normal 2L O2 per review of NH notes. Most likely secondary to pleural effusion and pulmonary edema in setting of suspected CHF exacerbation. Sepsis with CXR with possible PNA as well - patient does not endorse cough, sputum, fevers/chills. 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 Subtherapeutic INR of 1.9 today. With concern for perforated viscus and possible need to proceed to operating room holding all anticoagulation on 12/13. If the patient continues to be puma and without a clear disposition we will institute heparin drip which can have a shorter half-life and turn off easily if we need to proceed to the OR (3) HTN (hypertension): Blood pressure low consistent with possible sepsis -Hold antihypertensive agents -Continue to monitor (4) CHF (congestive heart failure): Suspect volume overload. Patient with elevated BNP and Troponin as well as LE and sacral edema, JVD, new pleural effusion and [place] pulmonary exam. bnp [id number] has been in 4-6 thousand range however with low blood pressure we will need to hold off on Bumex dosing surgery is started some IV fluids the rate will be modest White catheter will be placed to evaluate ins and outs -Bumex dosed on a day-to-day basis -troponin 0.1 x2 -Monitor daily weights -Will hold additional CHF medications at this time given borderline low BP (5) Leukocytosis: Patient with neutrophil predominant leukocytosis, elevated neutrophil/lymphocyte. Lactate elevated at 3.3 Concern with migrated stent. Surgery and radiology reviewed her CT scan and concern there may be an area of perforation in the sigmoid colon which could be from her migrated stent. Subsequently antibiotics of Zosyn will be continued with concern for sepsis from gastrointestinal source -Check C. diff - elevated procalcitonin at 2.[address] abdomen pelvis 12/12/20 IMPRESSION: 1. Interval development of mild pneumoperitoneum concerning for perforation of hollow viscus. Surgical consult is recommended. 2. Interval migration of metallic cylindrical surgical device from duodenum to the sigmoid colon. Possible surrounding inflammatory changes. Colonic diverticulosis is again seen. 3. Interval mild migration of previously seen pancreaticoduodenal stent to the first portion of duodenum. 4. Ascites, mesenteric edema and anasarca. 5. Cardiomegaly. 6. Bilateral pleural effusion. 7. Subacute fracture of the left pubic ramus Zosyn (6) Atrial fibrillation: V paced -Holding Metoprolol given borderline low blood pressure -Anticoagulation on hold currently (7) Abdominal pain: Likely from perforated viscus with concern for peritonitis F/E/N - Bumex, monitor electrolytes, PO as toleratd Ppx -previously on coumadin, Lovenox Code - Full, family discussion in November of this year with residents did voice frustration with frequent readmissions for this patient. Reportedly outpatient palliative medicine was supposed to take place however I do not feel the patient ever did reach that ointment subsequently I did reach out to both contacts in the chart I received messages on both to discuss further goals of care and CODE STATUS Admission and Anticipated Discharge Date Admission Date: December 12, 2020 Subjective Patient is very ill-appearing to be septic concerning for GI source. Free air in her abdomen consistent with possible perforated viscus confirmation of migration of previous upper bowel stent to the sigmoid colon with concern that perforation may have resulted in the sigmoid colon because of the stent. Gastroenterology and surgery are both involved in the case. Gastroenterology feels this may not be as significant of an issue as the stents can frequently cause some free air however surgery and her clinical outcome is concerning for septic shock Review of Systems Review of Systems: Significant moderate distress and fatigue no headache, no visual changes no speech or swallowing issues no chest pain, pressure or palpitations Shallow breathing but no cough or wheezes Distended painful abdomen no dysuria, hematuria or frequency no focal joint pain peripheral swelling of legs no back pain, CVA tenderness Very stage bruising, but no bleeding or rashes no focal signs of weakness or numbness or altered sensation no complaints of anxiety or depression.. Physical Exam Physical Exam: The patient appeared chronically ill and moderate to severe distress Vital signs as documented. Head exam is normocephalic atraumatic Neck is without JVD, thyromegaly, or carotid bruits. Lungs are diminished bilaterally Cardiac exam, Rhythm is regular.. No murmurs, rubs or gallops. Abdominal exam reveals hypoactive bowel sounds distended tender tympanic guarding plus minus rebound Extremities are 2+ edematous bilaterally and both pedal pulses are present Neurologic exam is alert and oriented x2, no focal loss of strength or sensation Skin is with bruises but no rashes Psychologically is without concerns for anxiety or depression Results & Data Results & Data ([facility]) Vital Signs (Past 12 Hours) Vital Signs Temp Pulse Pulse Resp BP BP Pulse Ox 12/13/20 08:16 97.7 F 60 18 97/56 L 99 12/13/20 03:29 97.7 F 60 16 114/57 L 98 12/13/20 00:11 97.7 F 60 19 102/52 L 95 12/12/20 22:40 97.7 F 61 19 102/52 L 95 12/12/20 22:35 97.7 F 60 19 102/52 L 94 12/12/20 22:30 60 12/12/20 21:40 64 20 108/48 L 96 12/12/20 21:30 60 24 90/43 L 99 12/12/20 20:50 60 19 97/41 L 98 12/12/20 20:36 98.6 F 60 16 96/43 L 98 Pulse Ox 12/13/20 08:16 12/13/20 03:29 12/13/20 00:11 12/12/20 22:40 12/12/20 22:35 94 12/12/20 22:30 12/12/20 21:40 12/12/20 21:30 12/12/20 20:50 12/12/20 20:36 PG Care Time/CCT Total # of Minutes Spent Total Time Spent with Patient: Total time spent is greater than 50% in coordination of care (as documented) at patient's floor/unit and/or counseling patient: Coding Level of Care Code 21547 Subseq Hosp Care Lvl 3 Diagnoses Hypoxia R09.02 Aortic valve replaced Z95.2 HTN (hypertension) I10 Hypertension type: essential hypertension CHF (congestive heart failure) I50.9 Heart failure chronicity: acute on chronic Heart failure type: unspecified Leukocytosis D72.829 Leukocytosis type: unspecified Atrial fibrillation I48.91 Atrial fibrillation type: unspecified Abdominal pain R10.30 Abdominal location: lower abdomen, unspecified (1) CHF (congestive heart failure) Heart failure chronicity: acute on chronic Heart failure type: unspecified Qualified Code(s): I50.9 - Heart failure, unspecified (2) Atrial fibrillation Atrial fibrillation type: unspecified Qualified Code(s): I48.91 - Unspecified atrial fibrillation (3) Leukocytosis Leukocytosis type: unspecified Qualified Code(s): D72.829 - Elevated white blood cell count, unspecified (4) Abdominal pain Abdominal location: lower abdomen, unspecified Qualified Code(s): R10.30 - Lower abdominal pain, unspecified (5) HTN (hypertension) Hypertension type: essential hypertension Qualified Code(s): I10 - Essential (primary) hypertension
[2020-12-13] MEDS ORDERED: ASPIRIN 81 MG ECTAB PO SCH (09:00)
[2020-12-13] MEDS ORDERED: ENOXAPARIN 80 MG/0.8 ML SYR SQ SCH (09:00)
[2020-12-13] MEDS: DORZOLAMIDE/TIMOLOL 22.3/6.8MG/ML 10 ML BTL OPB SCH (09:08)
[2020-12-13] MEDS: PANTOprazole 40 MG TAB PO SCH (09:11)
--- NOTE | 2020-12-13 09:52 | Ultrasound Report ---
RIGHT LOWER EXTREMITY VENOUS DOPPLER HISTORY: Right leg edema, warmth COMPARISON STUDY: None. FINDINGS: There is normal compressibility, flow, and augmentation within the right lower extremity de ep venous system. IMPRESSION: No DVT within the right lower extremity ACT 112: Negative or not required by law. Electronically signed by: Ilya Russ M.D. 12/13/2020 9:51 AM
--- NOTE | 2020-12-13 10:13 | CT Scan Report ---
CT abdomen oral and IV con CLINICAL HISTORY: ?Diverticulitis - abdominal pain, elevated lactate COMPARISON STUDY: September 18, 2020 TECHNIQUE: A dose lowering technique was utilized adhering to the principles of ALARA. CT DOSE: 1174.63 mGy.cm FINDINGS: Lower chest: Interval worsening of patchy airspace opacities at bilateral bases. Interval worsening o f small bilateral pleural effusion. Compressive atelectasis within left lower lobe is worsening since prior. Four-chamber cardiomegaly. Liver: Diffuse decrease in attenuation of liver parenchyma with mottled enhancement is seen. Slightly lobulated liver contour is seen which might represent cirrhosis. No focal lesions or intrahepatic bi liary dilatation is seen. Gallbladder: Gallbladder is contracted which limits evaluation. No gallstones seen. Spleen: Normal in size and attenuation. Pancreas: Pancreas is slightly atrophic. Adrenal glands: Unremarkable. Kidneys: There is symmetric renal cortical enhancement. The kidneys are normal in size without hydron ephrosis. Bowel: Bowel loops are nondilated. Appendix is not well seen. Extensive diverticulosis within sigmoid colon is seen. Previously seen duodenal stent is now visualized within lumen of sigmoid colon. There is a wire loping within first portion of duodenum and was probably seen within second portion of duo denum on the prior. Peritoneum: Multiple focal area of free intra-abdominal gas within nondependent portion of the mesent kavita and diffuse mesenteric edema is seen. There is small amount of fluid collection is seen surroundi ng the liver, spleen and within bilateral paracolic gutter. Vasculature: Abdominal aorta is tortuous and heavily calcified. No significant dilatation is seen. Adenopathy: No large adenopathy seen however evaluation is limited due to mesenteric edema. Pelvic viscera: Urinary bladder is fluid-filled shows normal appearance. Skeletal structures: Interval development of fracture of the left inferior pubic ramus with callus fo rmation which was not seen on prior, likely subacute degenerative changes of the spine. Diffuse subcutaneous edema is seen. IMPRESSION: 1. Interval development of mild pneumoperitoneum concerning for perforation of hollow viscus. Surgic al consult is recommended. 2. Interval migration of metallic cylindrical surgical device from duodenum to the sigmoid colon. Po ssible surrounding inflammatory changes. Colonic diverticulosis is again seen. 3. Interval mild migration of previously seen pancreaticoduodenal stent to the first portion of duod enum. 4. Ascites, mesenteric edema and anasarca. 5. Cardiomegaly. 6. Bilateral pleural effusion. 7. Subacute fracture of the left pubic ramus. ACT 112: Positive. There are findings on this exam that require communication between the performing entity and the patient following Patient Test Result Information Act ([place] Act 112) guidelines. The above report was generated using voice recognition software. It may contain grammatical, syntax o r spelling errors. Electronically signed by: Pavithra Brewer DO 12/13/2020 10:11 AM
--- NOTE | 2020-12-13 11:21 | Gastrointestinal Consultation ---
Date of Consultation December 13, 2020 Assessment & Plan (1) Pneumoperitoneum: (2) Biliary stent migration: (3) Leukocytosis: Case was discussed extensively with Dr. Mendoza who placed her stents originally in September, CT scan and xray were reviewed together. Her axios stent has migrated out (this has happened before, now the second time) and is now in the sigmoid colon, this is fine as it should come out in the stool. The double pigtail stent remains in place. There is some scattered small pneumoperitoneum but no ash perforation, and vital signs and clinical presentation is not consistent with a large perforation, no contrast extravasation is noted as well. Recs: --start abx zosyn IV for GI source of infection --keep NPO post midnight tuesday night --EGD and flex sig tuesday with Dr. Mendoza depending on clinical picture, possibly sooner if decompensates, stable at this time Thank you for allowing me to participate in the case of this patient History of Present Illness Attending Physician: Tito Oneil MD 89 yo female with hx CHF and mech aortic valve, HTN, cholecystoduodenal fistula s/p axios stent placement here with hypoxia, dyspnea, worsening edema. GI consulted for migrated stent, possible GI source of infection. At this time patient notes feeling dyspneic and having upset stomach and nausea last few days. She denies vomiting. She had EGD with axios stent placement in September and has a separate pigtail stent in place as well. It appears the axios stent has migrated on CT this admission, results below. CT A/P showed 1. Interval development of mild pneumoperitoneum concerning for perforation of hollow viscus. Surgical consult is recommended. 2. Interval migration of metallic cylindrical surgical device from duodenum to the sigmoid colon. Possible surrounding inflammatory changes. Colonic diverticulosis is again seen. 3. Interval mild migration of previously seen pancreaticoduodenal stent to the first portion of duodenum. 4. Ascites, mesenteric edema and anasarca. 5. Cardiomegaly. 6. Bilateral pleural effusion. 7. Subacute fracture of the left pubic ramus. VSS, labs reviewed. Allergies Allergy/AdvReac Type Severity Reaction Status Date / Time Sulfa (Sulfonamide Allergy Intermediate HIVES Verified 12/12/20 18:43 Antibiotics) Home Medications Medication Instructions Recorded Confirmed Type Centrum Silver Women 1 tab PO DAILY #0 07/31/13 12/12/20 History Oxygen Home #0 09/10/13 11/05/20 History lorazepam [Ativan] 0.5 mg PO BID PRN #0 tab 09/10/13 12/12/20 History metoprolol tartrate 100 mg PO BID #0 tab 09/10/13 12/12/20 History dorzolamide-timolol [Cosopt] 1 drp OPB BID 08/12/19 12/12/20 History Restasis 1 drp OPB BID 09/18/20 12/12/20 History eplerenone 25 mg PO DAILY 09/18/20 12/12/20 History hydrocortisone 1 applic TOPICAL BID PRN 09/18/20 12/12/20 History loperamide 2 mg PO Q6H PRN 09/18/20 12/12/20 History Lactobacillus acidoph-L.bulgar 2 tab PO BID 11/05/20 12/12/20 History [Floranex] acetaminophen 650 mg PO Q4H PRN MDD 3 GRAMS/11/05/20 12/12/20 History HOURS potassium chloride [Klor-Con M20] 40 meq PO BID 11/05/20 12/12/20 History Preparation H 1 applic AL AMHS PRN 11/07/20 12/12/20 History calcium carbonate [Tums] 600 mg PO DAILY 11/07/20 12/12/20 History levothyroxine 100 mcg PO DAILYBB 11/07/20 12/12/20 History losartan 25 mg PO BID 11/07/20 12/12/20 History warfarin See Rx Instructions .ROUTE .COMPLEX 11/07/20 12/12/20 History Heri Protect 1 applic TOPICAL DAILY 12/05/20 12/12/20 History Slow Mag 64mg 64 mg PO TID 12/05/20 12/12/20 History aspirin 81 mg PO DAILY 12/05/20 12/12/20 History melatonin 5 mg PO HS 12/05/20 12/12/20 History pantoprazole 40 mg PO BID 12/05/20 12/12/20 History trolamine salicylate 1 applic TOPICAL TID PRN 12/05/20 12/12/20 History simethicone [Mi-Acid Gas 80 mg PO Q6H PRN #30 tab 12/09/20 12/12/20 Rx Relief(simethicon)] bumetanide See Rx Instructions .ROUTE .COMPLEX 12/12/20 12/12/20 History netarsudil 1 drp OPB PM 12/12/20 12/12/20 History Patient History Medical History Acute diverticulitis Acute hyponatremia Acute hyponatremia Acute on chronic diastolic (congestive) heart failure RV dysfunction Acute onset of severe vertigo (07/31/13) Acute urinary retention Anemia Atrial fibrillation CHF (congestive heart failure) Cholecystitis Choledocholithiasis Dizziness Elevated troponin HTN (hypertension) Hyponatremia Pacemaker Pulmonary hypertension Thickened endometrium Thyroid disease Vertigo Surgical History Aortic valve replaced no further details provided from facility record History of colonoscopy History of heart valve replacement 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 Status post Mohs surgery Status post placement of cardiac pacemaker no further details provided from facility record Family History Brother Cancer Sister Cancer Social History Smoking Status: Never smoker Tobacco Type: Cigarettes Second Hand Exposure: No; Hx Alcohol Use: No Hx Substance Use: No Preferred Language: [place]an Communication Ability: Effective O And M Supervisor Required: No Beliefs That Will Affect Care: None marital status: / Current Living Situation: Personal Care Facility Current Living Situation Comment: [facility] How many Children do You have: 2 Feels Safe at Home: Yes Assistive Devices: Denture - Upper, Denture - Lower, Glasses and Oxygen - Continuous Review of Systems Constitutional: no fever, no chills and no weight loss Eyes: as per Subjective / HPI Ear, Nose, Mouth, Throat: as per Subjective / HPI Respiratory: no dyspnea and no dyspnea on exertion Cardiovascular: no chest pain and no palpitations Gastrointestinal: as per Subjective / HPI Musculoskeletal: no joint pain and no swelling Integumentary: no rash and no lesions Neurologic: no numbness and no paresthesia Psychiatric: no depression and no anxiety Endocrine: no fatigue Hematologic / Lymphatic: no easy bleeding and no easy bruising Physical Exam Constitutional: WD/WN, vitals as above Eyes: EOM intact bilaterally Neck: normal visual inspection Respiratory: normal respiratory effort, lungs clear to auscultation Cardiovascular: RRR, no murmur, no edema Gastrointestinal (Abdomen): Inspection/Auscultation: abdomen normal to inspection; abdomen not distended Percussion/Palpation: abdomen soft; abdomen nontender and no hepatosplenomegaly Musculoskeletal: Extremities: no cyanosis Gait: normal gait Skin: no rashes, warm and dry Neurologic: moves all extremities Psychiatric: A+Ox3, euthymic affect Results & Data ([facility]) Vital Signs (Past 12 Hours) Vital Signs Temp Pulse Resp BP Pulse Ox 12/13/20 08:16 36.5 C 60 18 97/56 L 99 12/13/20 03:29 36.5 C 60 16 114/57 L 98 12/13/20 00:11 36.5 C 60 19 102/52 L 95 PG Care Time/CCT Total # of Minutes Spent Total Time Spent with Patient: Total time spent is greater than 50% in coordination of care (as documented) at patient's floor/unit and/or counseling patient: Coding Level of Care Code 74668 Initial Inpt Care Lvl 3 Diagnoses Pneumoperitoneum K66.8 Biliary stent migration T85.520A Leukocytosis D72.829 Leukocytosis type: unspecified (1) Leukocytosis Leukocytosis type: unspecified Qualified Code(s): D72.829 - Elevated white blood cell count, unspecified
[2020-12-13] MEDS ORDERED: PIPERACILL/TAZOBAC CONSULT ACTIVE PRN (11:46)
[2020-12-13] MEDS ORDERED: VANCOMYCIN HCL 750 MG in SODIUM CHLORIDE 0.9% 250 ML IV SCH (12:00)
[2020-12-13] MEDS ORDERED: PIPERACILLIN/TAZOBACTAM 4.5 GM in DEXTROSE 5% 100 ML IV ONE (12:15)
[2020-12-13] MEDS ORDERED: SODIUM CHLORIDE 0.9% 500 ML IV SCH (13:00)
[2020-12-13 13:19] LABS: Hematocrit (blood only) 34.8 % (37-47); Hemoglobin 10.2 g/dL (12.0-16.0); Mean Corpuscular Hemoglobin 26.4 pg (25-34); Mean Corpuscular Hgb Conc 29.3 g/dL (32-36); Mean Corpuscular Volume 90.2 fL (80-100); Mean Platelet Volume 10.2 fL (7.4-10.4); Platelet Count 119 K/uL (130-400); RDW Coefficient of Variation 21.6 % (11.5-14.5); RDW Standard Deviation 71.1 fL (36.4-46.3); Red Blood Count 3.86 M/uL (4.2-5.4); White Blood Count 16.99 K/uL (4.8-10.8)
[2020-12-13 13:45] LABS: Creatinine Clr Calc Pharmacy 42.4 ml/min; Est GFR (African American) 59.3 ml/min; Est GFR (Non-African American) 51.1 ml/min; Potassium 4.2 mmol/L (3.5-5.1)
[2020-12-13 13:58] LABS: Base Excess VBG 8.2 mEq/L; Oxygen Saturation VBG 70.4 %; pH VBG 7.25 (7.36-7.41)
[2020-12-13] MEDS ORDERED: WARFARIN SOD 0.5 MG TAB PO SCH (16:00)
[2020-12-13] MEDS ORDERED: ACETAMINOPHEN 1000 MG/100 ML IV IV PRN (16:34)
[2020-12-13] MEDS ORDERED: LORazepam 0.5 MG/1 ML VIAL IV PRN ×2 (16:34→19:16)
[2020-12-13] MEDS ORDERED: NORMOSOL-R 1,000 ML IV SCH (16:45)
[2020-12-13] MEDS ORDERED: PIPERACILLIN/TAZOBACTAM 4.5 GM in DEXTROSE 5% 100 ML IV SCH (18:00)
[2020-12-13] MEDS ORDERED: NORMOSOL-R 500 ML IV ONE (18:24)
[2020-12-13] MEDS ORDERED: NOREPINEPHRINE/D5W 8 MG/508 ML BAG IV SCH (18:41)
[2020-12-13] MEDS ORDERED: NOREPINEPHRINE/D5W 8 MG/508 ML IV ONE (18:43)
[2020-12-13] MEDS ORDERED: VANCOMYCIN CONSULT ACTIVE PRN (19:16)
[2020-12-13] MEDS ORDERED: ICU PROTOCOL FOR HYPERGLYCEMIA PRN (19:16)
[2020-12-13] MEDS ORDERED: STAT IV Infusion **Titration per Protocol STA (19:16)
[2020-12-13] MEDS ORDERED: ATROPINE SULFATE 1% OP SOLN 5 ML BTL SL PRN (19:16)
[2020-12-13] MEDS ORDERED: ONDANSETRON INJ 2 MG/ML 2 ML VIAL IV PRN (19:16)
[2020-12-13] MEDS ORDERED: FAMOTIDINE 20 MG in SYRINGE 3 ML IV SCH (21:00)
[2020-12-13] MEDS: MoRPHine SULFATE 2 MG/ML CARP IV PRN (21:25)
[2020-12-14] MEDS ORDERED: ICU ELECTROLYTE REPLACEMENT PROTOCOL SCH (06:00)
[2020-12-14] MEDS ORDERED: STAT IV Infusion **Titration per Protocol STA (07:44)
[2020-12-14] MEDS ORDERED: MoRPHine SULF/SW 240 MG/240 ML BTL IV SCH (07:45)
[2020-12-14] MEDS: MoRPHine SULFATE 2 MG/ML CARP IV PRN (07:46)
--- NOTE | 2020-12-14 09:43 | Surgery Progress Note ---
Date of Service December 14, 2020 Assessment & Plan (1) Pneumoperitoneum: seen with Dr. Sandhu abdomen is softer, WBC remains 16 no additional recs at this time Admission and Anticipated Discharge Date Admission Date: December 12, 2020 Supervising Physician Co-Signing Physician Notes Much more alert this morning than yesterday less tender Subjective no new events Physical Exam Gastrointestinal (Abdomen): Percussion/Palpation: abdomen soft PG Care Time/CCT Total # of Minutes Spent Total Time Spent with Patient: Total time spent is greater than 50% in coordination of care (as documented) at patient's floor/unit and/or counseling patient: Coding Level of Care Code 00768 Subseq Hosp Care Lvl 1 Diagnoses Pneumoperitoneum K66.8
--- NOTE | 2020-12-14 15:33 | Discharge Summary ---
Date of Service December 14, 2020 Admission HPI Per Admitting Provider Clarisse Mo is an 89yo C female with history of mechanical aortic valve, diastolic CHF, HTN. Patient resides at [facility]. She was recently admitted to [facility] from 12/05 - 12/09 with suspected CHF exacerbation for which she was diuresed. Patient had been doing well since returning home. She returns today with complaint of ongoing shortness of breath, worsening edema. Per record review, saturations on 2L NC were 84% at [facility] and her blood pressure was 90/50. Patient states that her legs feel a little more swollen. She reports feeling anxious and breathless at times - feels that she works herself up at times. She denies chest pain, palpitations, cough, wheezing, sputum production. She is short of breath at baseline and does not feel that this is worse. She denies fevers/chills/dysuria/vomiting/nausea She states that she has bowel movements immediately following PO intake as well as fecal incontinence at times and has diarrhea on occasion. Patient afebrile, HD stabl ein ER. Saturating >94% on 4L NC ER Course: Cefepime 2gm, Vancomycin 1750, ASA 324, NSS x 250 Principal Diagnosis peritonitis perforated bowel acute on chronic diastolic heart failure Discharge Exam pt was pronounced 1355 hours Discharge Data Allergies Allergy/AdvReac Type Severity Reaction Status Date / Time Sulfa (Sulfonamide Allergy Intermediate HIVES Verified 12/12/20 18:43 Antibiotics) Consultations 12/12/20 19:09 ED Decision to Admit Stat 12/13/20 04:17 Consult General Surgery Stat 12/13/20 05:14 Consult Gastroenterology Routine Ordered Studies 12/12/20 22:35 CT abdomen oral and IV con Urgent US venous doppler LE RT Routine Hospital Course (1) : Pt was pronounced at 1355 hours on 12/14/20 from peritionitis from perforated bowel and complicated by acute on chronic diastolic heart failure The remainder of the note is from previous in the hospital stay (2) Hypoxia: acute respiratory failure with hypoxia, Patient with saturation of 84% on her normal 2L O2 per review of NH notes. Most likely secondary to pleural effusion and pulmonary edema in setting of suspected acute on chronic diastolic heart failure exacerbation Sepsis with perforated bowel -Supplemental O2 as needed to maintain SpO2 > 94% -Bumex 1mg IV BID is fighting against our fluid subsequently we will reduce her Bumex dosing -Incentive spirometry as tolerated (3) Aortic valve replaced: Patient with mechanical aortic valve in place. Subtherapeutic INR With concern for perforated viscus and possible need to proceed to operating room holding all anticoagulation on 12/13. If the patient continues to be puma and without a clear disposition we will institute heparin drip which can have a shorter half-life and turn off easily if we need to proceed to the OR (4) HTN (hypertension): Blood pressure low consistent with possible sepsis -Hold antihypertensive agents - (5) CHF (congestive heart failure): Suspect volume overload. Patient with elevated BNP and Troponin as well as LE and sacral edema, JVD, new pleural effusion and [place]ales [place] pulmonary exam. bnp [id number] has been in 4-6 thousand range however with low blood pressure we will need to hold off on Bumex dosing surgery is started some IV fluids the rate will be modest White catheter will be placed to evaluate ins and outs -Bumex dosed on a day-to-day basis -troponin 0.1 x2 - hold additional CHF medications at this time given borderline low BP (6) Leukocytosis: Patient with neutrophil predominant leukocytosis, elevated neutrophil/lymphocyte. Lactate elevated at 3.3 Concern with migrated stent. Surgery and radiology reviewed her CT scan and concern there may be an area of perforation in the sigmoid colon which could be from her migrated stent. Subsequently antibiotics of Zosyn will be continued with concern for sepsis from gastrointestinal source -Check C. diff - elevated procalcitonin at 2.[address] abdomen pelvis 12/12/20 IMPRESSION: 1. Interval development of mild pneumoperitoneum concerning for perforation of hollow viscus. Surgical consult is recommended. 2. Interval migration of metallic cylindrical surgical device from duodenum to the sigmoid colon. Possible surrounding inflammatory changes. Colonic diverticulosis is again seen. 3. Interval mild migration of previously seen pancreaticoduodenal stent to the first portion of duodenum. 4. Ascites, mesenteric edema and anasarca. 5. Cardiomegaly. 6. Bilateral pleural effusion. 7. Subacute fracture of the left pubic ramus (7) Atrial fibrillation: V paced -Holding Metoprolol given borderline low blood pressure -Anticoagulation on hold currently (8) Abdominal pain: Likely from perforated viscus with concern for peritonitis Code status was changed in pm of 12/13 to DNR/DNI - pt was placed on comfort measures and succumbed to medical issues Total Time Total Time Spent Total Time Spent (In Minutes): It required greater than 30 minutes to prepare this patient for discharge Discharge Plan Discharge Items Patient Disposition: Discharge Diagnosis: perforated bowel, peritonitis, acute on chronic diastolic heart failure Addtl Attending Provider Instructions: hector guzmaniedFrancine home Coding Level of Care Code D/C Day Management >30 mins Diagnoses R99 Hypoxia R09.02 Aortic valve replaced Z95.2 HTN (hypertension) I10 Hypertension type: essential hypertension CHF (congestive heart failure) I50.9 Heart failure chronicity: acute on chronic Heart failure type: unspecified Leukocytosis D72.829 Leukocytosis type: unspecified Atrial fibrillation I48.91 Atrial fibrillation type: unspecified Abdominal pain R10.30 Abdominal location: lower abdomen, unspecified
[2020-12-15] MEDS ORDERED: WARFARIN SOD 3 MG TAB PO SCH (16:00)
== END 2020-12-14 17:30 | disposition expired | DRG 871 ==
LOC: ED 17:57 → SUATTDRO 20:22 → 2S 20:22 → 2E 12-13 19:13 → 3N 12-14 11:15